=== PATIENT | female | born 1955 | race American Indian/Alaskan Native ===

== ENCOUNTER 2020-08-15 15:35 | Inpatient (IN) | payer MEDICARE ==
--- NOTE | 2020-08-15 16:38 | Event Note ---
ED Screening Note Date of service: 08/15/20 Time: 16:37 ED Screening Note: 64-year-old obese -M[place]ese female presents to the emergency room stating she just found out she was Covid positive and presents tachypneic tachycardic shortness of breath week no taste or smell. Came by [facility] system This initial assessment/diagnostic orders/clinical plan/treatment(s) is/are subject to change based on patients health status, clinical progression and re- assessment by fellow clinical providers in the ED. Further treatment and workup at subsequent clinical providers discretion. Patient/guardian urged not to elope from the ED as their condition may be serious if not clinically assessed and managed. Initial orders include:
--- NOTE | 2020-08-15 17:16 | XRay Report ---
CHEST 2 VIEWS INDICATION / CLINICAL INFORMATION: sob,cough and rales. Covid 19. COMPARISON: None available. FINDINGS: SUPPORT DEVICES: None. HEART / MEDIASTINUM: No significant abnormality. LUNGS / PLEURA: Low lung volumes with generalized bilateral pulmonary opacities. No significant pleur al effusion. No pneumothorax. ADDITIONAL FINDINGS: No significant additional findings. IMPRESSION: Bilateral pulmonary opacities are consistent with pneumonia in this patient with a history of Covid 1 9. Continued radiographic follow-up to resolution is recommended. Signer Name: Moshe Austin MD Signed: 08/15/2020 5:12 PM Workstation Name: [id number]
[2020-08-15] MEDS ORDERED: SODIUM CHLORIDE 0.9% 1000 ML 1,000 ML IV ONE ×2 (17:19)
[2020-08-15] MEDS ORDERED: IPRATROPIUM 0.02% NEBU 2.5 ML IH ONE (17:24)
[2020-08-15] MEDS ORDERED: LEVALBUTEROL 0.63 MG/3 ML NEBU IH ONE (17:24)
[2020-08-15] MEDS ORDERED: ACETAMINOPHEN 500 MG TAB PO ONE (17:26)
--- NOTE | 2020-08-15 17:26 | Emergency Department Report ---
HPI - General Chief Complaint: Dyspnea/Respdistress PUI?: Yes Time Seen by Provider: 08/15/20 16:57 - HPI HPI: Room 36 The patient is a 64-year-old female present with a chief complaint of "getting sicker." The patient states since July 21, 2020 she has suffered from a cough productive of yellow-white sputum, wheezing headache and scratchy throat. Patient admits to nausea but denies vomiting. The patient states her symptoms have been progressing since July 21. The patient states at some point she was placed on a Z-Bipin and steroids which she finished the course today. Patient is unable to remember who prescribed the medication for her at this time. The patient states she requested a Covid test from her insurance company and a test kit was mailed to her a few days ago. The patient states she completed the test and return to was notified today that her test was positive for COVID-19. The patient states her symptoms continue to progress and eventually EMS was called. The patient was found to be hypoxic today at 88% on room air per EMS and was subsequently brought into the ED ED Past Medical Hx - Past Medical History Previous Medical History?: Yes Hx Hypertension: Yes Hx CVA: Yes (CVA/TIA) Hx Diabetes: Yes Hx COPD: Yes (No home O2) Additional medical history: OBESITY,ELEVATED CHOLESTEROL - Surgical History Additional Surgical History: Hysterectomy - Social History Smoking Status: Never Smoker Substance Use Type: None (Denies illicit drug use) - Medications Home Medications: Home Medications Medication Instructions Recorded Confirmed Last Taken Type Colchicine [Colcrys] 0.6 mg PO DAILY 08/15/20 08/15/20 Unknown History Cyanocobalamin (Vitamin B-12) 1,000 mcg IJ QMONTH 08/15/20 08/15/20 Unknown History [Physicians Ez Use B-12] Ergocalciferol [Vitamin D2] 1 cap PO QWEEK 08/15/20 08/15/20 Unknown History Ezetimibe/Simvastatin 1 each PO DAILY 08/15/20 08/15/20 Unknown History [Ezetimibe-Simvastatin 10-20 mg] Famotidine [Pepcid] 40 mg PO DAILY 08/15/20 08/15/20 Unknown History Furosemide [Lasix] 40 mg PO BID 08/15/20 08/15/20 Unknown History HYDROcodone/APAP 5-325 [[place] 1 each PO Q6HR PRN 08/15/20 08/15/20 Unknown H istory 5/325] Linagliptin [Tradjenta] 5 mg PO QDAY 08/15/20 08/15/20 Unknown History Omeprazole 40 mg PO DAILY 08/15/20 08/15/20 Unknown History Potassium Chloride [K-Dur] 20 meq PO BID 08/15/20 08/15/20 Unknown History Valsartan [Diovan] 160 mg PO QDAY 08/15/20 08/15/20 Unknown History allopurinoL [Zyloprim] 200 mg PO DAILY 08/15/20 08/15/20 Unknown History carvediloL [Coreg] 3.125 mg PO BID 08/15/20 08/15/20 Unknown History ED Review of Systems ROS: Stated complaint: SOB/COVID POSITIVE Other details as noted in HPI Constitutional: fever Eyes: denies: eye pain ENT: throat pain Respiratory: cough, shortness of breath, wheezing Cardiovascular: denies: chest pain Endocrine: no symptoms reported Gastrointestinal: nausea. denies: vomiting Genitourinary: denies: dysuria Musculoskeletal: denies: back pain Neurological: headache Physical Exam - Physical Exam Vital Signs: Vital Signs 08/15/20 08/15/20 16:42 17:05 Temperature 100.9 F H Pulse Rate 144 H 134 H Respiratory 20 30 H Rate Blood Pressure 148/101 Blood Pressure 130/71 [Left] O2 Sat by Pulse 88 94 Oximetry Physical Exam: GENERAL: The patient is well-developed well-nourished female lying on stretcher appearing fatigued. [] HEENT: Normocephalic. Atraumatic. Extraocular motions are intact. Patient has moist mucous membranes. NECK: Supple. Trachea midline CHEST/LUNGS: Diminished diffusely. There is slightly increased work of breathing HEART/CARDIOVASCULAR: Regular. There is achycardia. There is no gallop rub or murmur. ABDOMEN: Abdomen is soft, nontender. Patient has normal bowel sounds. There is no abdominal distention. SKIN: There is no rash. There is no diaphoresis. NEURO: The patient is awake and oriented but appears fatigued. The patient is cooperative. The patient has no focal neurologic deficits. The patient has normal speech MUSCULOSKELETAL: There is no evidence of acute injury. ED Course Vital Signs 08/15/20 08/15/20 16:42 17:05 Temperature 100.9 F H Pulse Rate 144 H 134 H Respiratory 20 30 H Rate Blood Pressure 148/101 Blood Pressure 130/71 [Left] O2 Sat by Pulse 88 94 Oximetry ED Medical Decision Making - Lab Data Result diagrams: 08/15/20 17:01 08/15/20 17:01 - EKG Data -: EKG Interpreted by Me EKG shows normal: sinus rhythm Rate: tachycardia (132 beats per) - EKG Data When compared to previous EKG there are: previous EKG unavailable Interpretation: other (No ischemic changes seen) - Radiology Data Radiology results: report reviewed (Chest x-ray), image reviewed (Chest x-ray) interpreted by me: Chest [id number] bilateral opacities. No pneumothorax. No foreign body seen CHEST 2 VIEWS INDICATION / CLINICAL INFORMATION: sob,cough and rales. Covid 19. COMPARISON: None available. FINDINGS: SUPPORT DEVICES: None. HEART / MEDIASTINUM: No significant abnormality. LUNGS / PLEURA: Low lung volumes with generalized bilateral pulmonary opacities. No significant pleural effusion. No pneumothorax. ADDITIONAL FINDINGS: No significant additional findings. IMPRESSION: Bilateral pulmonary opacities are consistent with pneumonia in this patient with a history of Covid 19. Continued radiographic follow-up to resolution is recommended. Signer Name: Moshe Austin MD Signed: 08/15/2020 4:12 PM Workstation Name: [id number] - Differential Diagnosis COVID-19 Critical care attestation.: If time is entered above; I have spent that time in minutes in the direct care of this critically ill patient, excluding procedure time. ED Disposition Clinical Impression: COVID-19, Pneumonia, Hypoxia, Renal insufficiency Disposition: OP ADMIT IP TO THIS HOSP Is pt being admited?: Yes Does the pt Need Aspirin: Yes Condition: Fair Instructions: Bacterial Pneumonia (ED) Referrals: KENNETH GUERRA JR, MD [Primary Care Provider] - 3-5 Days Time of Disposition: 17:59 (Hospitalist paged (Dr. Rob))
[2020-08-15] MEDS ORDERED: cefTRIAXone/NS 1 GM/50 ML 1 GM/50 ML BAG IV ONE (17:27)
[2020-08-15 17:33] LABS: Basophils % (Auto) 0.2 % (0.0-1.8); Hematocrit 38.7 % (30.3-42.9); Hemoglobin 12.4 gm/dl (10.1-14.3); Lymphocytes # (Auto) 0.7 K/mm3 (1.2-5.4); Lymphocytes % (Auto) 7.4 % (13.4-35.0); Mean Corpuscular HGB Conc 32 % (30-34); Mean Corpuscular Volume 86 fl (79-97); Monocytes # (Auto) 0.7 K/mm3 (0.0-0.8); Monocytes % (Auto) 7.3 % (0.0-7.3); Platelet Count 204 K/mm3 (140-440); Red Blood Count 4.48 M/mm3 (3.65-5.03); Red Cell Distribution Width 15.8 % (13.2-15.2)
[2020-08-15 17:49] LABS: Albumin 3.4 g/dL (3.9-5); C-Reactive Protein 4.6 mg/dL (0.00-1.30); Calcium 8.8 mg/dL (8.4-10.2)
[2020-08-15] MEDS ORDERED: dexAMETHasone 20 MG/5 ML VIAL IV ONE (17:54)
[2020-08-15] MEDS ORDERED: fentaNYL 100 MCG/2 ML INJ IV ONE (18:20)
[2020-08-15] MEDS ORDERED: ONDANSETRON 4 MG/2 ML INJ IV ONE (18:20)
--- NOTE | 2020-08-15 21:48 | History and Physical Report ---
History of Present Illness Date of examination: 08/15/20 Date of admission: 08/15/20 18:00 Chief complaint: Cough and intermittent fever for 4 weeks History of present illness: 64-year-old female with history of hypertension, diabetes, COPD and old CVA comes in for cough productive of yellow sputum and wheezing and headache and scratchy throat. Going on for 4 weeks since July 21. Symptoms have been progressive since July 21. Patient has took a course of Z-Bipin and steroids with no relief. Patient states that she requested a [employer] test, [place] and pressors positive after 3 days of testing today. Intermittent fever present. Exposure to coronavirus not known. Shortness of breath on exertion. - Past Medical History Previous Medical History?: Yes --Hypertension: Yes --CVA: Yes (CVA/TIA) --Diabetes: Yes --COPD: Yes (No home O2) Additional medical history: OBESITY,ELEVATED CHOLESTEROL - Surgical History y Additional Surgical History: Hysterectomy Family history htn - Social History Smoking Status: Never Smoker Substance Use Type: None (Denies illicit drug use) - Medications Home Medications: Home Medications Medication Instructions Recorded Confirmed Last Taken Type Colchicine [Colcrys] 0.6 mg PO DAILY 08/15/20 08/15/20 Unknown History Cyanocobalamin (Vitamin B-12) 1,000 mcg IJ QMONTH 08/15/20 08/15/20 Unknown History [Physicians Ez Use B-12] Ergocalciferol [Vitamin D2] 1 cap PO QWEEK 08/15/20 08/15/20 Unknown History Ezetimibe/Simvastatin 1 each PO DAILY 08/15/20 08/15/20 Unknown History [Ezetimibe-Simvastatin 10-20 mg] Famotidine [Pepcid] 40 mg PO DAILY 08/15/20 08/15/20 Unknown History Furosemide [Lasix] 40 mg PO BID 08/15/20 08/15/20 Unknown History HYDROcodone/APAP 5-325 [[place] 1 each PO Q6HR PRN 08/15/20 08/15/20 Unknown History 5/325] Linagliptin [Tradjenta] 5 mg PO QDAY 08/15/20 08/15/20 Unknown History Omeprazole 40 mg PO DAILY 08/15/20 08/15/20 Unknown History Potassium Chloride [K-Dur] 20 meq PO BID 08/15/20 08/15/20 Unknown History Valsartan [Diovan] 160 mg PO QDAY 08/15/20 08/15/20 Unknown History allopurinoL [Zyloprim] 200 mg PO DAILY 08/15/20 08/15/20 Unknown History carvediloL [Coreg] 3.125 mg PO BID 08/15/20 08/15/20 Unknown History Review of Systems ROS: Stated complaint: SOB/COVID POSITIVE Other details as noted in HPI Constitutional: fever Eyes: denies: eye pain ENT: throat pain Respiratory: cough, shortness of breath, wheezing Cardiovascular: denies: chest pain Endocrine: no symptoms reported Gastrointestinal: nausea. denies: vomiting Genitourinary: denies: dysuria Musculoskeletal: denies: back pain Neurological: headache Medications and Allergies Allergies Allergy/AdvReac Type Severity Reaction Status Date / Time gabapentin [From Neurontin] Allergy Unknown Verified 08/15/20 17:25 rosuvastatin calcium Allergy Rash Verified 08/15/20 17:25 [From Crestor] fluticasone propionate AdvReac Headache Verified 08/15/20 17:25 [From Advair Diskus] salmeterol xinafoate AdvReac Headache Verified 08/15/20 17:25 [From Advair Diskus] IV DYE AdvReac Itching Uncoded 08/15/20 17:25 Home Medications Medication Instructions Recorded Confirmed Last Taken Type Colchicine [Colcrys] 0.6 mg PO DAILY 08/15/20 08/15/20 Unknown History Cyanocobalamin (Vitamin B-12) 1,000 mcg IJ QMONTH 08/15/20 08/15/20 Unknown History [Physicians Ez Use B-12] Ergocalciferol [Vitamin D2] 1 cap PO QWEEK 08/15/20 08/15/20 Unknown History Ezetimibe/Simvastatin 1 each PO DAILY 08/15/20 08/15/20 Unknown History [Ezetimibe-Simvastatin 10-20 mg] Famotidine [Pepcid] 40 mg PO DAILY 08/15/20 08/15/20 Unknown History Furosemide [Lasix] 40 mg PO BID 08/15/20 08/15/20 Unknown History HYDROcodone/APAP 5-325 [[place] 1 each PO Q6HR PRN 08/15/20 08/15/20 Unknown History 5/325] Linagliptin [Tradjenta] 5 mg PO QDAY 08/15/20 08/15/20 Unknown History Omeprazole 40 mg PO DAILY 08/15/20 08/15/20 Unknown History Potassium Chloride [K-Dur] 20 meq PO BID 08/15/20 08/15/20 Unknown History Valsartan [Diovan] 160 mg PO QDAY 08/15/20 08/15/20 Unknown History allopurinoL [Zyloprim] 200 mg PO DAILY 08/15/20 08/15/20 Unknown History carvediloL [Coreg] 3.125 mg PO BID 08/15/20 08/15/20 Unknown History Exam - Constitutional Vitals: Temp Pulse Resp BP Pulse Ox 100.9 F H 123 H 18 109/33 94 08/15/20 16:42 08/15/20 18:41 08/15/20 18:41 08/15/20 18:41 08/15/20 18:41 General appearance: Present: mild distress, well-nourished - EENT Eyes: Present: PERRL ENT: hearing intact, clear oral mucosa - Neck Neck: Present: supple, normal ROM - Respiratory Respiratory effort: normal Respiratory: bilateral: CTA - Cardiovascular Heart rate: 78 Rhythm: regular Heart Sounds: Present: S1 & S2. Absent: rub, click - Extremities Extremities: no ischemia, pulses intact, pulses symmetrical, No edema Peripheral Pulses: within normal limits - Abdominal General gastrointestinal: Present: soft, non-tender, non-distended, normal bowel sounds Female genitourinary: Present: normal - Integumentary Integumentary: Present: clear, warm, dry - Musculoskeletal Musculoskeletal: gait normal, strength equal bilaterally - Psychiatric Psychiatric: appropriate mood/affect, intact judgment & insight - Neurologic Neurologic: CNII-XII intact, moves all extremities - Allied Health Allied health notes reviewed: nursing, case management Results - Labs CBC & Chem 7: 08/16/20 04:32 08/16/20 04:32 Labs: Laboratory Last Values WBC 9.3 K/mm3 (4.5-11.0) 08/15/20 17:01 RBC 4.48 M/mm3 (3.65-5.03) 08/15/20 17:01 Hgb 12.4 gm/dl (10.1-14.3) 08/15/20 17:01 Hct 38.7 % (30.3-42.9) 08/15/20 17:01 MCV 86 fl (79-97) 08/15/20 17:01 MCH 28 pg (28-32) 08/15/20 17:01 MCHC 32 % (30-34) 08/15/20 17:01 RDW 15.8 % (13.2-15.2) H 08/15/20 17:01 Plt Count 204 K/mm3 (140-440) 08/15/20 17:01 Lymph % (Auto) 7.4 % (13.4-35.0) L 08/15/20 17:01 [place]hea % (Auto) 7.3 % (0.0-7.3) 08/15/20 17: Eos % (Auto) 0.0 % (0.0-4.3) 08/15/20 17: Baso % (Auto) 0.2 % (0.0-1.8) 08/15/20 17:01 Lymph # (Auto) 0.7 K/mm3 (1.2-5.4) L 08/15/20 17:01 Rhea # (Auto) 0.7 K/mm3 (0.0-0.8) 08/15/20 17:01 Eos # (Auto) 0.0 K/mm3 (0.0-0.4) 08/15/20 17:01 Baso # (Auto) 0.0 K/mm3 (0.0-0.1) 08/15/20 17:01 Seg Neutrophils % 85.1 % (40.0-70.0) H 08/15/20 17: Seg Neutrophils # 7.9 K/mm3 (1.8-7.7) H 08/15/20 17:01 D-Dimer 1750.12 ng/mlDDU (0-234) H 08/15/20 17:01 VBG pH 7.389 (7.320-7.420) 08/15/20 17:12 Sodium 137 mmol/L (137-145) 08/15/20 17:01 Potassium 5.1 mmol/L (3.6-5.0) H 08/15/20 17:01 Chloride 97.1 mmol/L (98-107) L 08/15/20 17:01 Carbon Dioxide 26 mmol/L (22-30) 08/15/20 17:01 Anion Gap 19 mmol/L 08/15/20 17:01 BUN 67 mg/dL (7-17) H 08/15/20 17:01 Creatinine 4.8 mg/dL (0.6-1.2) H 08/15/20 17:01 Estimated GFR 11 ml/min 08/15/20 17:01 BUN/Creatinine Ratio 14 % 08/15/20 17:01 Glucose 101 mg/dL (65-100) H 08/15/20 17:01 Glucose 101 mg/dL (65-100) H 08/15/20 17:01 Lactic Acid 1.30 mmol/L (0.7-2.0) 08/15/20 17:01 Calcium 8.8 mg/dL (8.4-10.2) 08/15/20 17: Ferritin 667.2 ng/mL (10.0-200.0) H 08/15/20 17:01 Total Bilirubin 0.40 mg/dL (0.1-1.2) 08/15/20 17:01 AST 53 units/L (5-40) H 08/15/20 17:01 ALT 26 units/L (7-56) 08/15/20 17:01 Alkaline Phosphatase 76 units/L (35-129) 08/15/20 17:01 Lactate Dehydrogenase 606 units/L (91-180) H 08/15/20 17:01 C-Reactive Protein 4.60 mg/dL (0.00-1.30) H 08/15/20 17:01 Total Protein 7.6 g/dL (6.3-8.2) 08/15/20 17:01 Albumin 3.4 g/dL (3.9-5) L 08/15/20 17:01 Albumin/Globulin Ratio 0.8 % 08/15/20 17:01 Microbiology: Microbiology 08/15/20 17:01 Peripheral/Venous Blood Culture - Preliminary Culture in Progress 08/15/20 17:12 Peripheral/Venous Blood Culture - Preliminary Culture in Progress - Imaging and Cardiology EKG: report reviewed Imaging and Cardiology: Chest x-ray Bilateral pulmonary opacities Assessment and Plan Advance Directives: Yes (Full code) VTE prophylaxis?: Chemical Plan of care discussed with patient/family: Yes - Patient Problems (1) Acute respiratory failure with hypoxia Current Visit: Yes Status: Acute Plan to address problem: Coronavirus PCR to be ruled out Patient has bilateral pulmonary opacities Question of volume overload present because of the high creatinine and possible CKD/end-stage renal disease (2) Person under investigation for severe acute respiratory syndrome coronavirus 2 (SARS-CoV-2) infection Current Visit: Yes Status: Acute Plan to address problem: Coronavirus PCR requested (3) Bilateral pneumonia Current Visit: Yes Status: Acute Plan to address problem: In the meantime treated bilateral community-acquired pneumonia Patient initiated on IV Zithromax and IV Rocephin (4) DVT prophylaxis Current Visit: Yes Status: Acute (5) Hypertension Current Visit: Yes Status: Chronic Qualifiers: Hypertension type: essential hypertension Qualified Code(s): I10 - Essential (primary) hypertension Plan to address problem: Continue antihypertensives and adjust medications (6) T2DM (type 2 diabetes mellitus) Current Visit: Yes Status: Chronic Qualifiers: Diabetes mellitus oil heaterman insulin use: unspecified oil heaterman insulin use status Plan to address problem: Coverage for now Check hemoglobin A1c (7) COPD (chronic obstructive pulmonary disease) Current Visit: Yes Status: Chronic Plan to address problem: DuoNebs as needed (8) CKD (chronic kidney disease) Current Visit: Yes Status: Acute Qualifiers: Chronic kidney disease stage: stage 5, not on chronic dialysis Qualified Code(s): N18.5 - Chronic kidney disease, stage 5 Plan to address problem: Nephrology consult requested (9) Hyperkalemia Current Visit: Yes Status: Acute Plan to address problem: Hyperkalemia treated. (10) DVT prophylaxis Current Visit: Yes Status: Acute Plan to address problem: On heparin and GI prophylaxis
[2020-08-15] MEDS ORDERED: ONDANSETRON 4 MG/2 ML INJ IV PRN (22:16)
[2020-08-15] MEDS ORDERED: METOCLOPRAMIDE 10 MG/2 ML INJ IV PRN ×2 (22:16→22:37)
[2020-08-15] MEDS: carvediloL 3.125 MG TAB PO SCH (23:40)
[2020-08-15] MEDS: AZITHROMYCIN/NS 500 MG/250 ML 500 MG/250 ML BAG IV SCH (23:41)
[2020-08-16] MEDS: ASCORBIC ACID 500 MG TAB PO SCH ×3 (02:23→22:07)
[2020-08-16] MEDS: FUROSEMIDE 40 MG TAB PO SCH ×3 (02:24→22:13)
[2020-08-16] MEDS: ZINC SULFATE 220 MG CAP PO SCH ×3 (02:24→22:11)
[2020-08-16 05:10] LABS: Basophils % (Auto) 0.2 % (0.0-1.8); Hematocrit 34.8 % (30.3-42.9); Hemoglobin 10.8 gm/dl (10.1-14.3); Lymphocytes # (Auto) 0.8 K/mm3 (1.2-5.4); Lymphocytes % (Auto) 12.6 % (13.4-35.0); Mean Corpuscular HGB Conc 31 % (30-34); Mean Corpuscular Volume 88 fl (79-97); Monocytes # (Auto) 0.2 K/mm3 (0.0-0.8); Monocytes % (Auto) 3.5 % (0.0-7.3); Platelet Count 182 K/mm3 (140-440); Red Blood Count 3.97 M/mm3 (3.65-5.03); Red Cell Distribution Width 15.9 % (13.2-15.2)
[2020-08-16 05:32] LABS: Albumin 3.1 g/dL (3.9-5); Calcium 7.8 mg/dL (8.4-10.2)
[2020-08-16] MEDS ORDERED: SODIUM POLYSTYRENE 15 GM/60 ML ORAL LIQD PO ONE (06:09)
[2020-08-16] MEDS ORDERED: CALCIUM GLUCONATE 2,000 MG in SODIUM CHLORIDE 0.9% 100 ML IV ONE ×2 (06:48→09:45)
--- NOTE | 2020-08-16 09:26 | Consultation ---
History of Present Illness Consult date: 08/16/20 Requesting physician: BONY DUPREE Reason for consult: COPD, other (COVID) History of present illness: 64 y/o female with acute respiratory failure thought secondary to COVID. Follows with Dr. Aparicio. Lying flat in bed on nasal cannula and states that she feels pretty good. no other complaints. Medications and Allergies Allergies Allergy/AdvReac Type Severity Reaction Status Date / Time gabapentin [From Neurontin] Allergy Unknown Verified 08/15/20 17:25 rosuvastatin calcium Allergy Rash Verified 08/15/20 17:25 [From Crestor] fluticasone propionate AdvReac Headache Verified 08/15/20 17:25 [From Advair Diskus] salmeterol xinafoate AdvReac Headache Verified 08/15/20 17:25 [From Advair Diskus] IV DYE AdvReac Itching Uncoded 08/15/20 17:25 Home Medications Medication Instructions Recorded Confirmed Last Taken Type Colchicine [Colcrys] 0.6 mg PO DAILY 08/15/20 08/15/20 Unknown History Cyanocobalamin (Vitamin B-12) 1,000 mcg IJ QMONTH 08/15/20 08/15/20 Unknown History [Physicians Ez Use B-12] Ergocalciferol [Vitamin D2] 1 cap PO QWEEK 08/15/20 08/15/20 Unknown History Ezetimibe/Simvastatin 1 each PO DAILY 08/15/20 08/15/20 Unknown History [Ezetimibe-Simvastatin 10-20 mg] Famotidine [Pepcid] 40 mg PO DAILY 08/15/20 08/15/20 Unknown History Furosemide [Lasix] 40 mg PO BID 08/15/20 08/15/20 Unknown History HYDROcodone/APAP 5-325 [[place] 1 each PO Q6HR PRN 08/15/20 08/15/20 Unknown History 5/325] Linagliptin [Tradjenta] 5 mg PO QDAY 08/15/20 08/15/20 Unknown History Omeprazole 40 mg PO DAILY 08/15/20 08/15/20 Unknown History Potassium Chloride [K-Dur] 20 meq PO BID 08/15/20 08/15/20 Unknown History Valsartan [Diovan] 160 mg PO QDAY 08/15/20 08/15/20 Unknown History allopurinoL [Zyloprim] 200 mg PO DAILY 08/15/20 08/15/20 Unknown History carvediloL [Coreg] 3.125 mg PO BID 08/15/20 08/15/20 Unknown History Active Meds: Active Medications Acetaminophen (Acetaminophen 325 Mg Tab) 650 mg PO Q4H PRN PRN Reason: Pain MILD(1-3)/Fever >100.5/TELLO Hydrocodone Bitart/Acetaminophen (Hydrocodone/Acetaminophen 5-325 Mg Tab) 1 each PO Q6HR PRN PRN Reason: Pain, Moderate (4-6) Allopurinol (Allopurinol 100 Mg Tab) 200 mg PO DAILY [facility] Ascorbic Acid (Ascorbic Acid 500 Mg Tab) 1,000 mg PO BID [facility] Last Admin: 08/16/20 02:23 Dose: 1,000 mg Documented by: Carvedilol (Carvedilol 3.125 Mg Tab) 3.125 mg PO BID [facility] Last Admin: 08/15/20 23:40 Dose: Not Given Documented by: Colchicine (Colchicine 0.6 Mg Tab) 0.6 mg PO QOD [facility] Dexamethasone (Dexamethasone 4 Mg/Ml Vial) 6 mg IV DAILY [facility] Stop: 08/24/20 10:01 Ezetimibe (Ezetimibe 10 Mg Tab) 10 mg PO DAILY [facility] Furosemide (Furosemide 40 Mg Tab) 40 mg PO BID [facility] Last Admin: 08/16/20 02:24 Dose: 40 mg Documented by: Hydromorphone HCl (Hydromorphone 1 Mg/1 Ml Inj) 0.5 mg IV Q3H PRN PRN Reason: Pain , Severe (7-10) Azithromycin (Zithromax/Ns) 500 mg in 250 mls @ 250 mls/hr IV Q24H [facility] Last Admin: 08/15/20 23:41 Dose: 250 mls/hr Documented by: Ceftriaxone Sodium (Rocephin/Ns 2 Gm/100 Ml) 2 gm in 100 mls @ 200 mls/hr IV Q24HR [facility]; Protocol Calcium Gluconate 2,000 mg/ (Sodium Chloride) 120 mls @ 660 mls/hr IV ONCE ONE Stop: 08/16/20 09:26 Linagliptin (Linagliptin 5 Mg Tab) 5 mg PO QDAY [facility] Metoclopramide HCl (Metoclopramide 10 Mg/2 Ml Inj) 5 mg IV Q6H PRN PRN Reason: Nausea And Vomiting Ondansetron HCl (Ondansetron 4 Mg/2 Ml Inj) 4 mg IV Q8H PRN PRN Reason: Nausea And Vomiting Oxycodone/Acetaminophen (Oxycodone /Acetaminophen 5-325mg Tab) 1 tab PO Q6H PRN PRN Reason: Pain, Moderate (4-6) Pantoprazole Sodium (Pantoprazole 40 Mg Tab) 40 mg PO DAILY [facility] Pravastatin Sodium (Pravastatin 40 Mg Tab) 40 mg PO DAILY [facility] Sodium Bicarbonate (Sodium Bicarb 8.4% 50 Meq/50 Ml Syringe) 50 meq IV ONCE ONE Stop: 08/16/20 09:17 Sodium Chloride (Sodium Chloride 0.9% 10 Ml Flush Syringe) 10 ml IV BID [facility] Last Admin: 08/16/20 02:24 Dose: 10 ml Documented by: Sodium Chloride (Sodium Chloride 0.9% 10 Ml Flush Syringe) 10 ml IV PRN PRN PRN Reason: LINE FLUSH Sodium Polystyrene Sulfonate (Sodium Polystyrene 15 Gm/60 Ml Oral Liqd) 60 gm PO ONCE ONE Stop: 08/16/20 09:16 Valsartan (Valsartan 160mg Tab) 160 mg PO QDAY [facility] Zinc Sulfate (Zinc Sulfate 220 Mg Cap) 220 mg PO BID [facility] Last Admin: 08/16/20 02:24 Dose: 220 mg Documented by: Review of Systems All systems: negative Physical Examination Vital signs: Vital Signs Temp Pulse Resp BP Pulse Ox 100.9 F H 144 H 20 148/101 88 08/15/20 16:42 08/15/20 16:42 08/15/20 16:42 08/15/20 16:42 08/15/20 16:42 General appearance: no acute distress, alert, other (obese) Eyes: non-icteric ENT: oropharynx moist Neck: supple Effort: normal Ascultation: Bilateral: diminished breath sounds Results - Laboratory Findings CBC and BMP: 08/16/20 04:32 08/16/20 04:32 PT/INR, D-dimer D-Dimer 1750.12 ng/mlDDU (0-234) H 08/15/20 17:01 Abnormal lab findings: Abnormal Labs 08/15/20 08/15/20 08/15/20 17:01 17:01 17:01 MCH RDW 15.8 H Lymph % (Auto) 7.4 L Lymph # (Auto) 0.7 L Seg Neutrophils % 85.1 H Seg Neutrophils # 7.9 H D-Dimer 1750.12 H Sodium Potassium 5.1 H Chloride 97.1 L BUN 67 H Creatinine 4.8 H Glucose 101 H Hemoglobin A1c Calcium Ferritin AST 53 H Lactate Dehydrogenase C-Reactive Protein Total Protein Albumin 3.4 L 08/15/20 08/15/20 08/16/20 17:01 17:01 04:32 MCH 27 L RDW 15.9 H Lymph % (Auto) 12.6 L Lymph # (Auto) 0.8 L Seg Neutrophils % 83.7 H Seg Neutrophils # D-Dimer Sodium Potassium Chloride BUN Creatinine Glucose 101 H Hemoglobin A1c Calcium Ferritin 667.2 H AST Lactate Dehydrogenase 606 H C-Reactive Protein 4.60 H Total Protein Albumin 08/16/20 08/16/20 04:32 04:32 MCH RDW Lymph % (Auto) Lymph # (Auto) Seg Neutrophils % Seg Neutrophils # D-Dimer Sodium 136 L Potassium 6.7 H* D Chloride BUN 78 H Creatinine 6.2 H Glucose 223 H Hemoglobin A1c 7.6 H Calcium 7.8 L Ferritin AST 47 H Lactate Dehydrogenase C-Reactive Protein Total Protein 5.8 L D Albumin 3.1 L - Diagnostic Findings Chest x-ray: report reviewed (unable to see images secondary to system error.) Assessment and Plan 64 y/o female with acute respiratory failure thought secondary to COVID 1. Follow up covid testing 2. Ok with current steroids 3. If patient brought in home inhalers, please allow pharmacy to verify and use them, no neb treatments 4. Prone during the day and and sleep prone at night as tolerated. Guarded prognosis.
[2020-08-16] MEDS ORDERED: SODIUM POLYSTYRENE 15 GM/60 ML ORAL LIQD PO NR (09:30)
[2020-08-16] MEDS ORDERED: POTASSIUM CHLORIDE ER 20 MEQ TAB PO SCH (10:00)
[2020-08-16] MEDS ORDERED: COLCHICINE 0.6 MG TAB PO SCH (10:00)
[2020-08-16] MEDS ORDERED: FAMOTIDINE 20 MG/2 ML INJ IV SCH (10:00)
[2020-08-16] MEDS ORDERED: [UNRECOGNIZED DRUG - OTHER] PO SCH (10:00)
[2020-08-16] MEDS ORDERED: NON-FORMULARY EACH (Famotidine [Pepcid] 40 MG Tablet) PO SCH (10:00)
[2020-08-16] MEDS ORDERED: NON-FORMULARY EACH (Omeprazole [Omeprazole] 40 MG Capsule.Dr) PO SCH (10:00)
[2020-08-16] MEDS ORDERED: SIMVASTATIN PO SCH (10:00)
[2020-08-16] MEDS ORDERED: EZETIMIBE PO SCH (10:00)
[2020-08-16] MEDS ORDERED: dexAMETHasone 4 MG/ML VIAL IV SCH (10:00)
[2020-08-16] MEDS ORDERED: INSULIN REGULAR, HUMAN 100 UNITS/1 ML IV ONE (11:09)
[2020-08-16] MEDS ORDERED: DEXTROSE 50% IN WATER (25GM) 50 ML SYRINGE IV ONE (11:10)
[2020-08-16] MEDS: dexAMETHasone 4 MG/ML VIAL IV SCH (11:29)
[2020-08-16] MEDS: SODIUM BICARB 8.4% 50 MEQ/50 ML SYRINGE IV NR ×3 (11:29→11:33)
[2020-08-16] MEDS: allopurinoL 100 MG TAB PO SCH (11:31)
[2020-08-16] MEDS: cefTRIAXone/NS 2 GM/100 ML 2 GM/100 ML BAG IV SCH (11:31)
[2020-08-16] MEDS: LINAGLIPTIN 5 MG TAB PO SCH (11:32)
[2020-08-16] MEDS: carvediloL 3.125 MG TAB PO SCH ×2 (11:32→22:08)
[2020-08-16] MEDS: PANTOPRAZOLE 40 MG TAB PO SCH (11:32)
[2020-08-16] MEDS ORDERED: SODIUM CHLORIDE 0.9% 100 ML IV PRN (11:46)
--- NOTE | 2020-08-16 12:05 | Consultation ---
History of Present Illness - History of Present Illness Thank you for the consultation Patient was evaluated today from renal standpoint My assessment and plan are as follows Renal failure, severe, worsening renal function in a patient who has been admitted here has known history of chronic kidney disease, currently being followed by Dr. Sanders who is her primary care physician patient also remotely remembers seeing a beautician apprentice several years ago but never went back for follow-up Etiology of renal failure appears to be complex and multifactorial at this time, will order workup for renal failure as well as initiate renal placement therapy I have discussed with the patient as well as patient's nurse over the phone at length process of dialysis has been explained to the patient she is in agreement with initiation of renal replacement therapy given the severity of hyperkalemia and renal failure at least 1-2 treatment for now to see how she responds while we are trying to figure out what her baseline creatinine I have ordered for dialysis as well as dialysis catheter placement consultation has been requested with Dr. Simmons #I have already contacted her primary care physician to know her baseline creatinine, patient is a very poor historian, #Hyperkalemia could be iatrogenic patient was taking potassium supplementation along with Diovan, postdialysis will need to follow continue holding potassium supplementation as well as Diovan for now #Being ruled out for coronavirus 19 infection patient under investigation #History of gout hyperuricemia, hypertension, diabetes: Multiple other risk factors also for underlying chronic kidney disease current BMI is around 56: #Overall renal prognosis appears to be guarded to poor at this time We will continue to monitor for any meaningful recovery of renal function Patient has been adequately counseled educated regarding all the renal related issues and all questions were addressed in presence of the nurse on the speaker phone Will await for her basic renal function panel from her primary care physician Dr. Rivers Author: Robbie Del Cid M.D. [facility] [address] [place] [address] [address] [place] [address] Tel; [phone] Source of information: From the current chart patient under investigation for Covid 19 History of present illness Patient is a 4-year-old female who possibly has known history of chronic kidney disease and was seen and followed by a beautician apprentice approximately 3 years ago, she thinks it could be my partner Dr. Ovalles. She is currently being followed by Dr. Samy Rivers in the outpatient setting and does not recall having ever been told to have any issues with kidney disease, patient however appears to be very poor historian she denies having any history of HIV lupus hepatitis BC or any form of paraproteinemia she was not taking any form of nonsteroidal drug. She has been found to be in severe renal failure creatinine close to 6 potassium 6.7 with shortness of breath concern has been raised about some fluid overload by primary team, she denies having any difficulty voiding Events of this hospitalization were noted Past medical history: Chronic kidney disease? Morbid obesity Hypertension Hyperlipidemia Gout CVA COPD Oxygen dependent History of hysterectomy Current allergies: Reviewed from the current chart Social history: Reviewed from the current chart Family history: Reviewed from the current chart Review of system: Positive for shortness of breath cough fever headache sore throat which has been going on for nearly 4 weeks she was treated with Z-Bipin and steroid without much help and still continued to have intermittent fever All other review of systems negative Physical examination Vitals: Reviewed Findings were reviewed from this hospitalization Due to patient being in the status of PUI and ongoing pandemic with Covid 19 to reduce the risk of transmission patient was directly not physically examined by ut Labs and x-rays: Reviewed from this admission Medications and Allergies Allergies Allergy/AdvReac Type Severity Reaction Status Date / Time gabapentin [From Neurontin] Allergy Unknown Verified 08/15/20 17:25 rosuvastatin calcium Allergy Rash Verified 08/15/20 17:25 [From Crestor] fluticasone propionate AdvReac Headache Verified 08/15/20 17:25 [From Advair Diskus] salmeterol xinafoate AdvReac Headache Verified 08/15/20 17:25 [From Advair Diskus] IV DYE AdvReac Itching Uncoded 08/15/20 17:25 Home Medications Medication Instructions Recorded Confirmed Last Taken Type Colchicine [Colcrys] 0.6 mg PO DAILY 08/15/20 08/15/20 Unknown History Cyanocobalamin (Vitamin B-12) 1,000 mcg IJ QMONTH 08/15/20 08/15/20 Unknown History [Physicians Ez Use B-12] Ergocalciferol [Vitamin D2] 1 cap PO QWEEK 08/15/20 08/15/20 Unknown History Ezetimibe/Simvastatin 1 each PO DAILY 08/15/20 08/15/20 Unknown History [Ezetimibe-Simvastatin 10-20 mg] Famotidine [Pepcid] 40 mg PO DAILY 08/15/20 08/15/20 Unknown History Furosemide [Lasix] 40 mg PO BID 08/15/20 08/15/20 Unknown History HYDROcodone/APAP 5-325 [Sutton 1 each PO Q6HR PRN 08/15/20 08/15/20 Unknown History 5/325] Linagliptin [Tradjenta] 5 mg PO QDAY 08/15/20 08/15/20 Unknown History Omeprazole 40 mg PO DAILY 08/15/20 08/15/20 Unknown History Potassium Chloride [K-Dur] 20 meq PO BID 08/15/20 08/15/20 Unknown History Valsartan [Diovan] 160 mg PO QDAY 08/15/20 08/15/20 Unknown History allopurinoL [Zyloprim] 200 mg PO DAILY 08/15/20 08/15/20 Unknown History carvediloL [Coreg] 3.125 mg PO BID 08/15/20 08/15/20 Unknown History Active Meds: Active Medications Acetaminophen (Acetaminophen 325 Mg Tab) 650 mg PO Q4H PRN PRN Reason: Pain MILD(1-3)/Fever >100.5/TELLO Hydrocodone Bitart/Acetaminophen (Hydrocodone/Acetaminophen 5-325 Mg Tab) 1 each PO Q6HR PRN PRN Reason: Pain, Moderate (4-6) Allopurinol (Allopurinol 100 Mg Tab) 200 mg PO DAILY [facility] Last Admin: 08/16/20 11:31 Dose: 200 mg Documented by: Ascorbic Acid (Ascorbic Acid 500 Mg Tab) 1,000 mg PO BID [facility] Last Admin: 08/16/20 02:23 Dose: 1,000 mg Documented by: Carvedilol (Carvedilol 3.125 Mg Tab) 3.125 mg PO BID [facility] Last Admin: 08/16/20 11:32 Dose: 3.125 mg Documented by: Colchicine (Colchicine 0.6 Mg Tab) 0.6 mg PO QOD [facility] Dexamethasone (Dexamethasone 4 Mg/Ml Vial) 6 mg IV DAILY [facility] Stop: 08/24/20 10:01 Last Admin: 08/16/20 11:29 Dose: 6 mg Documented by: Ezetimibe (Ezetimibe 10 Mg Tab) 10 mg PO DAILY [facility] Furosemide (Furosemide 40 Mg Tab) 40 mg PO BID [facility] Last Admin: 08/16/20 11:31 Dose: 40 mg Documented by: Hydromorphone HCl (Hydromorphone 1 Mg/1 Ml Inj) 0.5 mg IV Q3H PRN PRN Reason: Pain , Severe (7-10) Azithromycin (Zithromax/Ns) 500 mg in 250 mls @ 250 mls/hr IV Q24H [facility] Last Admin: 08/15/20 23:41 Dose: 250 mls/hr Documented by: Ceftriaxone Sodium (Rocephin/Ns 2 Gm/100 Ml) 2 gm in 100 mls @ 200 mls/hr IV Q24HR [facility]; Protocol Last Admin: 08/16/20 11:31 Dose: 200 mls/hr Documented by: Sodium Chloride (Nacl 0.9%) 100 mls @ 999 mls/hr IV SARAI PRN PRN Reason: Hypotension Linagliptin (Linagliptin 5 Mg Tab) 5 mg PO QDAY [facility] Last Admin: 08/16/20 11:32 Dose: 5 mg Documented by: Metoclopramide HCl (Metoclopramide 10 Mg/2 Ml Inj) 5 mg IV Q6H PRN PRN Reason: Nausea And Vomiting Ondansetron HCl (Ondansetron 4 Mg/2 Ml Inj) 4 mg IV Q8H PRN PRN Reason: Nausea And Vomiting Oxycodone/Acetaminophen (Oxycodone /Acetaminophen 5-325mg Tab) 1 tab PO Q6H PRN PRN Reason: Pain, Moderate (4-6) Pantoprazole Sodium (Pantoprazole 40 Mg Tab) 40 mg PO DAILY [facility] Last Admin: 08/16/20 11:32 Dose: 40 mg Documented by: Pravastatin Sodium (Pravastatin 40 Mg Tab) 40 mg PO DAILY [facility] Sodium Bicarbonate (Sodium Bicarb 8.4% 50 Meq/50 Ml Syringe) 50 meq IV ONCE@0930 NR Stop: 08/16/20 12:00 Last Admin: 08/16/20 11:33 Dose: 50 meq Documented by: Sodium Chloride (Sodium Chloride 0.9% 10 Ml Flush Syringe) 10 ml IV BID [facility] Last Admin: 08/16/20 02:24 Dose: 10 ml Documented by: Sodium Chloride (Sodium Chloride 0.9% 10 Ml Flush Syringe) 10 ml IV PRN PRN PRN Reason: LINE FLUSH Sodium Polystyrene Sulfonate (Sodium Polystyrene 15 Gm/60 Ml Oral Liqd) 60 gm PO ONCE@0930 NR Stop: 08/16/20 12:00 Last Admin: 08/16/20 11:33 Dose: 60 gm Documented by: Valsartan (Valsartan 160mg Tab) 160 mg PO QDAY [facility] Zinc Sulfate (Zinc Sulfate 220 Mg Cap) 220 mg PO BID [facility] Last Admin: 08/16/20 02:24 Dose: 220 mg Documented by: Exam - Vital Signs Vital signs: Vital Signs Temp Pulse Resp BP Pulse Ox 100.9 F H 144 H 20 148/101 88 08/15/20 16:42 08/15/20 16:42 08/15/20 16:42 08/15/20 16:42 08/15/20 16:42 Results - Lab Results 08/16/20 04:32 08/16/20 17:01 Most recent lab results Calcium 7.8 mg/dL (8.4-10.2) L 08/16/20 04:32
[2020-08-16] MEDS: VALSARTAN 160MG TAB PO SCH (12:20)
[2020-08-16] MEDS: PRAVASTATIN 40 MG TAB PO SCH (12:20)
[2020-08-16] MEDS: EZETIMIBE 10 MG TAB PO SCH (12:21)
--- NOTE | 2020-08-16 13:58 | Consultation ---
History of Present Illness - Reason for Consult Consult date: 08/16/20 COVID_19 Requesting physician: BONY DUPREE - History of Present Illness The patient is a 64-year-old female with hypertension, diabetes, COPD, prior CVA, CKD was admitted to the hospital with cough and shortness of breath along with wheezing and headache going on for almost a month. She recently got tested for COVID-19 and was told it is positive. Upon evaluation in the ER, had a low- grade fever, also noted to be hypoxic requiring supplemental oxygen. She has been started on empiric antibiotics and steroids. Also noted to have ANGELIQUE on top of CKD Labs showed normal WBC, D-dimer 1750, ferritin 667, LDH 606, CRP 4.6. Review of Systems: reviewed in the chart, unable to obtain, minimize risk of transmission Medications and Allergies Allergies Allergy/AdvReac Type Severity Reaction Status Date / Time gabapentin [From Neurontin] Allergy Unknown Verified 08/15/20 17:25 rosuvastatin calcium Allergy Rash Verified 08/15/20 17:25 [From Crestor] fluticasone propionate AdvReac Headache Verified 08/15/20 17:25 [From Advair Diskus] salmeterol xinafoate AdvReac Headache Verified 08/15/20 17:25 [From Advair Diskus] IV DYE AdvReac Itching Uncoded 08/15/20 17:25 Home Medications Medication Instructions Recorded Confirmed Last Taken Type Colchicine [Colcrys] 0.6 mg PO DAILY 08/15/20 08/15/20 Unknown History Cyanocobalamin (Vitamin B-12) 1,000 mcg IJ QMONTH 08/15/20 08/15/20 Unknown History [Physicians Ez Use B-12] Ergocalciferol [Vitamin D2] 1 cap PO QWEEK 08/15/20 08/15/20 Unknown History Ezetimibe/Simvastatin 1 each PO DAILY 08/15/20 08/15/20 Unknown History [Ezetimibe-Simvastatin 10-20 mg] Famotidine [Pepcid] 40 mg PO DAILY 08/15/20 08/15/20 Unknown History Furosemide [Lasix] 40 mg PO BID 08/15/20 08/15/20 Unknown History HYDROcodone/APAP 5-325 [Hydro 1 each PO Q6HR PRN 08/15/20 08/15/20 Unknown History 5/325] Linagliptin [Tradjenta] 5 mg PO QDAY 08/15/20 08/15/20 Unknown History Omeprazole 40 mg PO DAILY 08/15/20 08/15/20 Unknown History Potassium Chloride [K-Dur] 20 meq PO BID 08/15/20 08/15/20 Unknown History Valsartan [Diovan] 160 mg PO QDAY 08/15/20 08/15/20 Unknown History allopurinoL [Zyloprim] 200 mg PO DAILY 08/15/20 08/15/20 Unknown History carvediloL [Coreg] 3.125 mg PO BID 08/15/20 08/15/20 Unknown History Active Meds: Active Medications Acetaminophen (Acetaminophen 325 Mg Tab) 650 mg PO Q4H PRN PRN Reason: Pain MILD(1-3)/Fever >100.5/TELLO Hydrocodone Bitart/Acetaminophen (Hydrocodone/Acetaminophen 5-325 Mg Tab) 1 each PO Q6HR PRN PRN Reason: Pain, Moderate (4-6) Allopurinol (Allopurinol 100 Mg Tab) 200 mg PO DAILY [facility] Last Admin: 08/16/20 11:31 Dose: 200 mg Documented by: Ascorbic Acid (Ascorbic Acid 500 Mg Tab) 1,000 mg PO BID [facility] Last Admin: 08/16/20 12:05 Dose: 1,000 mg Documented by: Carvedilol (Carvedilol 3.125 Mg Tab) 3.125 mg PO BID [facility] Last Admin: 08/16/20 11:32 Dose: 3.125 mg Documented by: Colchicine (Colchicine 0.6 Mg Tab) 0.6 mg PO QOD [facility] Dexamethasone (Dexamethasone 4 Mg/Ml Vial) 6 mg IV DAILY [facility] Stop: 08/24/20 10:01 Last Admin: 08/16/20 11:29 Dose: 6 mg Documented by: Ezetimibe (Ezetimibe 10 Mg Tab) 10 mg PO DAILY [facility] Last Admin: 08/16/20 12:21 Dose: 10 mg Documented by: Furosemide (Furosemide 40 Mg Tab) 40 mg PO BID [facility] Last Admin: 08/16/20 11:31 Dose: 40 mg Documented by: Hydromorphone HCl (Hydromorphone 1 Mg/1 Ml Inj) 0.5 mg IV Q3H PRN PRN Reason: Pain , Severe (7-10) Azithromycin (Zithromax/Ns) 500 mg in 250 mls @ 250 mls/hr IV Q24H [facility] Last Admin: 08/15/20 23:41 Dose: 250 mls/hr Documented by: Ceftriaxone Sodium (Rocephin/Ns 2 Gm/100 Ml) 2 gm in 100 mls @ 200 mls/hr IV Q24HR [facility]; Protocol Last Admin: 08/16/20 11:31 Dose: 200 mls/hr Documented by: Sodium Chloride (Nacl 0.9%) 100 mls @ 999 mls/hr IV SARAI PRN PRN Reason: Hypotension Linagliptin (Linagliptin 5 Mg Tab) 5 mg PO QDAY [facility] Last Admin: 08/16/20 11:32 Dose: 5 mg Documented by: Metoclopramide HCl (Metoclopramide 10 Mg/2 Ml Inj) 5 mg IV Q6H PRN PRN Reason: Nausea And Vomiting Ondansetron HCl (Ondansetron 4 Mg/2 Ml Inj) 4 mg IV Q8H PRN PRN Reason: Nausea And Vomiting Oxycodone/Acetaminophen (Oxycodone /Acetaminophen 5-325mg Tab) 1 tab PO Q6H PRN PRN Reason: Pain, Moderate (4-6) Pantoprazole Sodium (Pantoprazole 40 Mg Tab) 40 mg PO DAILY [facility] Last Admin: 08/16/20 11:32 Dose: 40 mg Documented by: Pravastatin Sodium (Pravastatin 40 Mg Tab) 40 mg PO DAILY [facility] Last Admin: 08/16/20 12:20 Dose: 40 mg Documented by: Sodium Chloride (Sodium Chloride 0.9% 10 Ml Flush Syringe) 10 ml IV BID [facility] Last Admin: 08/16/20 12:04 Dose: 10 ml Documented by: Sodium Chloride (Sodium Chloride 0.9% 10 Ml Flush Syringe) 10 ml IV PRN PRN PRN Reason: LINE FLUSH Valsartan (Valsartan 160mg Tab) 160 mg PO QDAY [facility] Last Admin: 08/16/20 12:20 Dose: 160 mg Documented by: Zinc Sulfate (Zinc Sulfate 220 Mg Cap) 220 mg PO BID [facility] Last Admin: 08/16/20 12:20 Dose: 220 mg Documented by: Physical Examination - Physical Exam Narrative exam: Physical Exam (reviewed in chart to minimize risk of transmission) Constitutional: deferred Head, Ears, Nose: deferred Eyes: deferred Neck: deferred Oral: deferred Cardiovascular: deferred Respiratory: deferred GI: deferred Musculoskeletal: deferred Skin: deferred Hem/Lymphatic: deferred Psych: deferred Neurological: deferred - Constitutional Vitals: Vital Signs Temp Pulse Resp BP Pulse Ox 98.7 F 97 H 22 105/69 98 08/16/20 08:08 08/16/20 08:32 08/16/20 07:00 08/16/20 08:32 08/16/20 07:00 Temperature -Last 24 Hours Temperature 98.7 F Temperature 100.9 F Results - Labs CBC & Chem 7: 08/16/20 04:32 08/16/20 04:32 Labs: Abnormal lab results 08/15/20 08/15/20 08/15/20 Range/Units 17:01 17:01 17:01 MCH (28-32) pg RDW 15.8 H (13.2-15.2) % Lymph % (Auto) 7.4 L (13.4-35.0) % Lymph # (Auto) 0.7 L (1.2-5.4) K/mm3 Seg Neutrophils % 85.1 H (40.0-70.0) % Seg Neutrophils # 7.9 H (1.8-7.7) K/mm3 D-Dimer 1750.12 H (0-234) ng/mlDDU Sodium (137-145) mmol/L Potassium 5.1 H (3.6-5.0) mmol/L Chloride 97.1 L (98-107) mmol/L BUN 67 H (7-17) mg/dL Creatinine 4.8 H (0.6-1.2) mg/dL Glucose 101 H (65-100) mg/dL Hemoglobin A1c (4-6) % Calcium (8.4-10.2) mg/dL Ferritin (10.0-200.0) ng/mL AST 53 H (5-40) units/L Lactate Dehydrogenase (91-180) units/L C-Reactive Protein (0.00-1.30) mg/dL Total Protein (6.3-8.2) g/dL Albumin 3.4 L (3.9-5) g/dL 03/01/21 03/01/21 03/02/21 Range/Units 17:01 17:01 04:32 MCH 27 L (28-32) pg RDW 15.9 H (13.2-15.2) % Lymph % (Auto) 12.6 L (13.4-35.0) % Lymph # (Auto) 0.8 L (1.2-5.4) K/mm3 Seg Neutrophils % 83.7 H (40.0-70.0) % Seg Neutrophils # (1.8-7.7) K/mm3 D-Dimer (0-234) ng/mlDDU Sodium (137-145) mmol/L Potassium (3.6-5.0) mmol/L Chloride (98-107) mmol/L BUN (7-17) mg/dL Creatinine (0.6-1.2) mg/dL Glucose 101 H (65-100) mg/dL Hemoglobin A1c (4-6) % Calcium (8.4-10.2) mg/dL Ferritin 667.2 H (10.0-200.0) ng/mL AST (5-40) units/L Lactate Dehydrogenase 606 H (91-180) units/L C-Reactive Protein 4.60 H (0.00-1.30) mg/dL Total Protein (6.3-8.2) g/dL Albumin (3.9-5) g/dL 08/16/20 08/16/20 Range/Units 04:32 04:32 MCH (28-32) pg RDW (13.2-15.2) % Lymph % (Auto) (13.4-35.0) % Lymph # (Auto) (1.2-5.4) K/mm3 Seg Neutrophils % (40.0-70.0) % Seg Neutrophils # (1.8-7.7) K/mm3 D-Dimer (0-234) ng/mlDDU Sodium 136 L (137-145) mmol/L Potassium 6.7 H* D (3.6-5.0) mmol/L Chloride (98-107) mmol/L BUN 78 H (7-17) mg/dL Creatinine 6.2 H (0.6-1.2) mg/dL Glucose 223 H (65-100) mg/dL Hemoglobin A1c 7.6 H (4-6) % Calcium 7.8 L (8.4-10.2) mg/dL Ferritin (10.0-200.0) ng/mL AST 47 H (5-40) units/L Lactate Dehydrogenase (91-180) units/L C-Reactive Protein (0.00-1.30) mg/dL Total Protein 5.8 L D (6.3-8.2) g/dL Albumin 3.1 L (3.9-5) g/dL - Imaging and Cardiology Chest x-ray: report reviewed, image reviewed (b/l PNA) Assessment and Plan Cultures: SARS CoV2 PCR: Pending, positive as outpatient 08/15/2020 blood culture: No growth A/P: 64-year-old female with hypertension, diabetes, COPD, prior CVA, CKD was admitted to the hospital with cough and shortness of breath along with wheezing and headache going on for almost a month: #Bilateral pneumonia: Suspected secondary to COVID-19. Test was positive as outpatient. #Acute hypoxic respiratory failure: on NC. #ANGELIQUE on CKD: Renally dose antibiotics. #Mild transaminitis: Probably from COVID-19. Recs: -continue IV/PO Dexamethasone 6 mg daily x 10 days -continue empiric Ceftriaxone, Azithromycin -Given prolonged symptoms and renal failure, no indication for Remdesivir -prophylactic anticoagulation based on d-dimer per hospital protocol -trend ferritin, LDH, d-dimer, CRP every 2-3 days for risk stratification and to assess disease progression Dale Suarez MD, FACP [facility] ([facility] O: [phone] F: [phone]
[2020-08-16] MEDS: COLCHICINE 0.6 MG TAB PO SCH (17:01)
--- NOTE | 2020-08-16 17:11 | Progress Note ---
Assessment and Plan - Patient Problems (1) Acute respiratory failure with hypoxia Current Visit: Yes Status: Acute Plan to address problem: Coronavirus PCR positive Patient has bilateral pulmonary opacities IV Decadron Not a candidate for remdesivir (2) Person under investigation for severe acute respiratory syndrome coronavirus 2 (SARS-CoV-2) infection Current Visit: Yes Status: Acute Plan to address problem: Coronavirus PCR positive (3) Bilateral pneumonia Current Visit: Yes Status: Acute Plan to address problem: In the meantime treated bilateral community-acquired pneumonia Patient initiated on IV Zithromax and IV Rocephin (4) Hypertension Current Visit: Yes Status: Chronic Qualifiers: Hypertension type: essential hypertension Qualified Code(s): I10 - Essential (primary) hypertension Plan to address problem: Continue antihypertensives and adjust medications (5) T2DM (type 2 diabetes mellitus) Current Visit: Yes Status: Chronic Qualifiers: Diabetes mellitus assisted insulin use: unspecified assisted insulin use status Plan to address problem: Coverage for now Check hemoglobin A1c (6) COPD (chronic obstructive pulmonary disease) Current Visit: Yes Status: Chronic Plan to address problem: DuoNebs as needed (7) CKD (chronic kidney disease) Current Visit: Yes Status: Deleted Qualifiers: Chronic kidney disease stage: stage 5, not on chronic dialysis Qualified Code(s): N18.5 - Chronic kidney disease, stage 5 Plan to address problem: Nephrology consult requested (8) Hyperkalemia Current Visit: Yes Status: Acute Plan to address problem: Hyperkalemia treated. (9) DVT prophylaxis Current Visit: Yes Status: Acute Plan to address problem: On heparin and GI prophylaxis Subjective Date of service: 08/16/20 Principal diagnosis: Covid pneumonia, ANGELIQUE, acute respiratory failure with hypoxia Interval history: 64-year-old female with history of hypertension, diabetes, COPD and old CVA comes in for cough productive of yellow sputum and wheezing and headache and scratchy throat. Going on for 4 weeks since July 21. Symptoms have been progressive since July 21. Patient has took a course of Z-Bipin and steroids with no relief. Patient states that she requested a Covid test, insurance company and pressors positive after 3 days of testing today. Intermittent fever present. Exposure to coronavirus not known. Shortness of breath on exertion. 08/16/2020 Patient continues to be on high flow nasal cannula oxygen Patient to get Vas-Cath for intermittent hemodialysis Objective - Constitutional Vitals: Vital Signs - 12hr 08/16/20 08/16/20 08/16/20 07:00 08:08 08:32 Temperature 98.7 F Pulse Rate 86 97 H Respiratory 22 Rate Blood Pressure 105/69 105/69 O2 Sat by Pulse 98 Oximetry General appearance: Present: no acute distress, well-nourished - EENT Eyes: PERRL, EOM intact ENT: hearing intact, clear oral mucosa Ears: bilateral: normal - Neck Neck: supple, normal ROM - Respiratory Respiratory effort: normal Respiratory: bilateral: CTA - Breasts Breasts: normal - Cardiovascular Heart rate: 78 Rhythm: regular Heart Sounds: Present: S1 & S2. Absent: gallop, rub Extremities: pulses intact, No edema, normal color, Full ROM - Gastrointestinal General gastrointestinal: Present: soft, non-tender, non-distended, normal bowel sounds - Genitourinary Female genitourinary: normal - Integumentary Integumentary: clear, warm, dry - Musculoskeletal Musculoskeletal: 1, strength equal bilaterally - Neurologic Neurologic: moves all extremities - Psychiatric Psychiatric: memory intact, appropriate mood/affect, intact judgment & insight - Labs CBC & Chem 7: 08/23/20 05:47 08/23/20 05:47 Labs: Abnormal lab results 08/15/20 08/15/20 08/15/20 Range/Units 17:01 17:01 17:01 MCH (28-32) pg RDW 15.8 H (13.2-15.2) % Lymph % (Auto) 7.4 L (13.4-35.0) % Lymph # (Auto) 0.7 L (1.2-5.4) K/mm3 Seg Neutrophils % 85.1 H (40.0-70.0) % Seg Neutrophils # 7.9 H (1.8-7.7) K/mm3 D-Dimer 1750.12 H (0-234) ng/mlDDU Sodium (137-145) mmol/L Potassium 5.1 H (3.6-5.0) mmol/L Chloride 97.1 L (98-107) mmol/L BUN 67 H (7-17) mg/dL Creatinine 4.8 H (0.6-1.2) mg/dL Glucose 101 H (65-100) mg/dL Hemoglobin A1c (4-6) % Calcium (8.4-10.2) mg/dL Ferritin (10.0-200.0) ng/mL AST 53 H (5-40) units/L Lactate Dehydrogenase (91-180) units/L C-Reactive Protein (0.00-1.30) mg/dL Total Protein (6.3-8.2) g/dL Albumin 3.4 L (3.9-5) g/dL Coronavirus (PCR) (Negative) 08/15/20 08/15/20 08/16/20 Range/Units 17:01 17:01 04:32 MCH 27 L (28-32) pg RDW 15.9 H (13.2-15.2) % Lymph % (Auto) 12.6 L (13.4-35.0) % Lymph # (Auto) 0.8 L (1.2-5.4) K/mm3 Seg Neutrophils % 83.7 H (40.0-70.0) % Seg Neutrophils # (1.8-7.7) K/mm3 D-Dimer (0-234) ng/mlDDU Sodium (137-145) mmol/L Potassium (3.6-5.0) mmol/L Chloride (98-107) mmol/L BUN (7-17) mg/dL Creatinine (0.6-1.2) mg/dL Glucose 101 H (65-100) mg/dL Hemoglobin A1c (4-6) % Calcium (8.4-10.2) mg/dL Ferritin 667.2 H (10.0-200.0) ng/mL AST (5-40) units/L Lactate Dehydrogenase 606 H (91-180) units/L C-Reactive Protein 4.60 H (0.00-1.30) mg/dL Total Protein (6.3-8.2) g/dL Albumin (3.9-5) g/dL Coronavirus (PCR) (Negative) 08/16/20 08/16/20 08/16/20 Range/Units 04:32 04:32 Unknown MCH (28-32) pg RDW (13.2-15.2) % Lymph % (Auto) (13.4-35.0) % Lymph # (Auto) (1.2-5.4) K/mm3 Seg Neutrophils % (40.0-70.0) % Seg Neutrophils # (1.8-7.7) K/mm3 D-Dimer (0-234) ng/mlDDU Sodium 136 L (137-145) mmol/L Potassium 6.7 H* D (3.6-5.0) mmol/L Chloride (98-107) mmol/L BUN 78 H (7-17) mg/dL Creatinine 6.2 H (0.6-1.2) mg/dL Glucose 223 H (65-100) mg/dL Hemoglobin A1c 7.6 H (4-6) % Calcium 7.8 L (8.4-10.2) mg/dL Ferritin (10.0-200.0) ng/mL AST 47 H (5-40) units/L Lactate Dehydrogenase (91-180) units/L C-Reactive Protein (0.00-1.30) mg/dL Total Protein 5.8 L D (6.3-8.2) g/dL Albumin 3.1 L (3.9-5) g/dL Coronavirus (PCR) Positive A (Negative)
[2020-08-16] MEDS ORDERED: LIDOCAINE (2%) 20 MG/1 ML VIAL 20 ML MDV INFILTRATI ONE (19:01)
[2020-08-16] MEDS ORDERED: fentaNYL 100 MCG/2 ML INJ ONE (19:01)
[2020-08-16] MEDS ORDERED: MIDAZOLAM 2 MG/2 ML INJ ONE (19:01)
[2020-08-16] MEDS ORDERED: HEPARIN/NS 5000 UNIT/500ML 500 ML IR ONE (19:02)
[2020-08-16] MEDS: HEPARIN 10,000 UNITS/10 ML VIAL ONE ×2 (19:43→19:46)
--- NOTE | 2020-08-16 19:57 | Operative Report ---
Operative Report Operative Report: EXAM: 1. Ultrasound-guided puncture of the right internal jugular vein 2. Fluoroscopic-guided placement of a right internal jugular nontunneled noncuffed hemodialysis catheter. DATE: 08/16/2020 INDICATION: Acute renal failure requiring hemodialysis. MEDICATIONS: Please see nursing report for full details. DEVICES: 15 cm dual lumen hemodialysis catheter UROLOGIST PHYSICIAN: BACILIO CAMACHO MD CONTRAST: None PROCEDURE: The risks, benefits, and alternatives were discussed and informed consent was obtained. The patient was transported to the angiography suite in satisfactory/stable condition and was transported onto the angiography table. The patient's right internal jugular vein was assessed with ultrasound and determined to be patent prior to procedure. The patient was prepped and draped in a sterile fashion. The puncture site was anesthetized. The right internal jugular vein was patent on ultrasound. Under sonographic guidance, the right internal jugular vein was punctured with a 21-gauge micropuncture needle and a 0.018 inch wire was advanced through the needle. Needle was exchanged for transitional dilator. The inner dilator and wire was removed and a 0.035 inch wire was advanced through the transitional dilator into the inferior vena cava. Over the 0.035 inch wire, serial dilatation was performed. The catheter was advanced over the wire and positioned centrally under fluoroscopic guidance. 2-0 silk suture was used to secure the catheter. The catheter was charged with heparin 1000 units/mL of space. Biopatch and sterile dressing applied. The patient was transferred from the angiography suite back to the floor in stable condition. FINDINGS: 1. Excellent flow was obtained through the dialysis catheter with 20 mL syringes. 2. The catheter tip is in the right atrium. IMPRESSION: 1. Successful sonographically and fluoroscopically guided placement of a right internal jugular nontunneled noncuffed hemodialysis catheter.
[2020-08-16 21:12] LABS: Calcium 8.5 mg/dL (8.4-10.2)
[2020-08-16 21:15] LABS: C-Reactive Protein 6.3 mg/dL (0.00-1.30)
[2020-08-16 21:39] LABS: Hepatitis B Surface Antigen Non-Reactive (Negative); Hepatitis C Virus Antibody Non-Reactive (NonReactive)
[2020-08-16] MEDS: oxyCODONE /ACETAMINOPHEN 5-325MG TAB PO PRN (22:08)
[2020-08-16] MEDS: AZITHROMYCIN/NS 500 MG/250 ML 500 MG/250 ML BAG IV SCH (22:12)
[2020-08-17] MEDS: ACETAMINOPHEN 325 MG TAB PO PRN ×2 (05:14→08:55)
[2020-08-17 08:29] LABS: Basophils % (Auto) 0.1 % (0.0-1.8); Hematocrit 32.3 % (30.3-42.9); Hemoglobin 10.2 gm/dl (10.1-14.3); Lymphocytes # (Auto) 0.4 K/mm3 (1.2-5.4); Lymphocytes % (Auto) 4.2 % (13.4-35.0); Mean Corpuscular HGB Conc 32 % (30-34); Mean Corpuscular Volume 86 fl (79-97); Monocytes # (Auto) 0.6 K/mm3 (0.0-0.8); Monocytes % (Auto) 5.7 % (0.0-7.3); Platelet Count 213 K/mm3 (140-440); Red Blood Count 3.78 M/mm3 (3.65-5.03)
--- NOTE | 2020-08-17 08:29 | Progress Note ---
Subjective Interval history: patient was evaluated from renal standpoint but due to Covid status was not physically examined in person to reduce the risk of transmission and cross infection Found out that she did not receive dialysis yesterday that was ordered Current lab results were reviewed Interdisciplinary notes, Physical exam was also reviewed Past medical history: Reviewed Family history: Reviewed Social history: Reviewed Allergies: Reviewed Physical examination: Vitals: Reviewed Reviewed from service Labs and x-rays: Reviewed from today Assessment and plan #Renal failure: Severe, with hyperkalemia patient MILD, patient did not receive dialysis treatment yesterday even though it was ordered stat We will follow up on the basic metabolic profile, renal ultrasonogram and pending labs that have been ordered, to decide about with her she will need another treatment today or tomorrow Will discontinue angiotensin receptor vamshi, discontinue allopurinol, she is currently on dexamethasone will discontinue Colchicine #Anemia current hemoglobin is around 10.0 platelet count normal 230,000 #Will follow up on her pending chemistries including BUN and creatinine as well as potassium level, to make sure her dialysis has been satisfactory Will decide about second dialysis treatment if needed #tested positive for Covid 19 #Hyperkalemia currently appears to have improved, as of yesterday pending follow-up labs, we will discontinue angiotensin receptor vamshi #Blood pressure appears to be borderline We'll continue to follow and make recommendation for renal standpoint Objective - Vital Signs Vital signs: Vital Signs - 12hr 08/16/20 08/16/20 08/16/20 20:39 22:28 22:41 Temperature 99.1 F Pulse Rate 120 H Respiratory 24 Rate Blood Pressure 120/62 O2 Sat by Pulse 98 86 93 Oximetry 08/17/20 08/17/20 04:22 06:32 Temperature 101.0 F H 99.0 F Pulse Rate 112 H Respiratory 26 H Rate Blood Pressure 97/44 O2 Sat by Pulse 90 Oximetry - Lab 08/17/20 07:31 08/17/20 07:31 Most recent lab results Calcium 8.5 mg/dL (8.4-10.2) 08/16/20 17:01 Medications & Allergies - Medications Allergies/Adverse Reactions: Allergies gabapentin [From Neurontin] Allergy (Verified 08/15/20 17:25) Unknown rosuvastatin calcium [From Crestor] Allergy (Verified 08/15/20 17:25) Rash fluticasone propionate [From Advair Diskus] Adverse Reaction (Verified 08/15/20 17:25) Headache salmeterol xinafoate [From Advair Diskus] Adverse Reaction (Verified 08/15/20 17:25) Headache IV DYE Adverse Reaction (Uncoded 08/15/20 17:25) Itching Home Medications: Home Medications Medication Instructions Recorded Confirmed Last Taken Type Colchicine [Colcrys] 0.6 mg PO DAILY 08/15/20 08/15/20 Unknown History Cyanocobalamin (Vitamin B-12) 1,000 mcg IJ QMONTH 08/15/20 08/15/20 Unknown History [Physicians Ez Use B-12] Ergocalciferol [Vitamin D2] 1 cap PO QWEEK 08/15/20 08/15/20 Unknown History Ezetimibe/Simvastatin 1 each PO DAILY 08/15/20 08/15/20 Unknown History [Ezetimibe-Simvastatin 10-20 mg] Famotidine [Pepcid] 40 mg PO DAILY 08/15/20 08/15/20 Unknown History Furosemide [Lasix] 40 mg PO BID 08/15/20 08/15/20 Unknown History HYDROcodone/APAP 5-325 [[place] 1 each PO Q6HR PRN 08/15/20 08/15/20 Unknown History 5/325] Linagliptin [Tradjenta] 5 mg PO QDAY 08/15/20 08/15/20 Unknown History Omeprazole 40 mg PO DAILY 08/15/20 08/15/20 Unknown History Potassium Chloride [K-Dur] 20 meq PO BID 08/15/20 08/15/20 Unknown History Valsartan [Diovan] 160 mg PO QDAY 08/15/20 08/15/20 Unknown History allopurinoL [Zyloprim] 200 mg PO DAILY 08/15/20 08/15/20 Unknown History carvediloL [Coreg] 3.125 mg PO BID 08/15/20 08/15/20 Unknown History Albuterol Sulfate [Proair 90 mcg INHALATION Q4H PRN 08/17/20 08/17/20 Unknown History Digihaler] Spiriva 2.5 mcg INHALATION DAILY 08/17/20 08/17/20 Unknown History Symbicort 160-4.5 Mcg Inhaler 160 mcg INHALATION BID 08/17/20 08/17/20 Unknown History Active Medications: Generic Name Dose Route Start Last Admin Trade Name Freq PRN Reason Stop Dose Admin Acetaminophen 650 mg 08/15/20 22:16 08/17/20 05:14 Acetaminophen 325 Mg Tab PO 650 mg Q4H PRN Administration Pain MILD(1-3)/Fever >100.5/TELLO Hydrocodone Bitart/Acetaminophen 1 each 08/15/20 22:06 Hydrocodone/Acetaminophen 5-325 Mg Tab PO Q6HR PRN Pain, Moderate (4-6) Allopurinol 200 mg 08/16/20 10:00 08/16/20 11:31 Allopurinol 100 Mg Tab PO 200 mg DAILY SYLVAIN Administration Ascorbic Acid 1,000 mg 08/15/20 23:00 08/16/20 22:07 Ascorbic Acid 500 Mg Tab PO 1,000 mg BID SYLVAIN Administration Carvedilol 3.125 mg 08/15/20 23:00 08/16/20 22:08 Carvedilol 3.125 Mg Tab PO Not Given BID SYLVAIN Colchicine 0.6 mg 08/16/20 10:00 08/16/20 17:01 Colchicine 0.6 Mg Tab PO 0.6 mg QOD SYLVAIN Administration Dexamethasone 6 mg 08/16/20 10:00 08/16/20 11:29 Dexamethasone 4 Mg/Ml Vial IV 08/24/20 10:01 6 mg DAILY SYLVAIN Administration Ezetimibe 10 mg 08/16/20 10:00 08/16/20 12:21 Ezetimibe 10 Mg Tab PO 10 mg DAILY SYLVAIN Administration Furosemide 40 mg 08/15/20 23:00 08/16/20 22:13 Furosemide 40 Mg Tab PO 40 mg BID SYLVAIN Administration Hydromorphone HCl 0.5 mg 08/15/20 22:16 Hydromorphone 1 Mg/1 Ml Inj IV Q3H PRN Pain , Severe (7-10) Azithromycin 500 mg in 250 mls @ 250 mls/hr 08/15/20 23:00 08/16/20 22:12 Zithromax/Ns IV 250 mls/hr Q24H SYLVAIN Administration Ceftriaxone Sodium 2 gm in 100 mls @ 200 mls/hr 08/16/20 10:00 08/16/20 11:31 Rocephin/Ns 2 Gm/100 Ml IV 200 mls/hr Q24HR SYLVAIN Administration Protocol Sodium Chloride 100 mls @ 999 mls/hr 08/16/20 11:46 Nacl 0.9% IV SARAI PRN Hypotension Linagliptin 5 mg 08/16/20 10:00 08/16/20 11:32 Linagliptin 5 Mg Tab PO 5 mg QDAY SYLVAIN Administration Metoclopramide HCl 5 mg 08/15/20 22:37 Metoclopramide 10 Mg/2 Ml Inj IV Q6H PRN Nausea And Vomiting Ondansetron HCl 4 mg 08/15/20 22:16 Ondansetron 4 Mg/2 Ml Inj IV Q8H PRN Nausea And Vomiting Oxycodone/Acetaminophen 1 tab 08/15/20 22:16 08/16/20 22:08 Oxycodone /Acetaminophen 5-325mg Tab PO 1 tab Q6H PRN Administration Pain, Moderate (4-6) Pantoprazole Sodium 40 mg 08/16/20 10:00 08/16/20 11:32 Pantoprazole 40 Mg Tab PO 40 mg DAILY SYLVAIN Administration Pravastatin Sodium 40 mg 08/16/20 10:00 08/16/20 12:20 Pravastatin 40 Mg Tab PO 40 mg DAILY SYLVAIN Administration Sodium Chloride 10 ml 08/15/20 23:00 08/16/20 22:12 Sodium Chloride 0.9% 10 Ml Flush Syringe IV 10 ml BID SYLVAIN Administration Sodium Chloride 10 ml 08/15/20 22:16 Sodium Chloride 0.9% 10 Ml Flush Syringe IV PRN PRN LINE FLUSH Valsartan 160 mg 08/16/20 10:00 08/16/20 12:20 Valsartan 160mg Tab PO 160 mg QDAY SYLVAIN Administration Zinc Sulfate 220 mg 08/15/20 23:00 08/16/20 22:11 Zinc Sulfate 220 Mg Cap PO 220 mg BID SYLVAIN Administration
[2020-08-17 08:49] LABS: Calcium 7.9 mg/dL (8.4-10.2)
--- NOTE | 2020-08-17 09:20 | Progress Note ---
Assessment and Plan 64 y/o female with acute respiratory failure thought secondary to COVID, found to be positive 08/17/20: Found to be positive. Same recs as yesterday. Likely not a candidate for remdesivir given renal function. No nebulizer therapy, only inhaler therapy if and when needed. Continue supplemental O2 and proning is mcknight. Guarded prognosis given renal failure. 1. Follow up covid testing 2. Ok with current steroids 3. If patient brought in home inhalers, please allow pharmacy to verify and use them, no neb treatments 4. Prone during the day and and sleep prone at night as tolerated. Guarded prognosis. Subjective Date of service: 08/17/20 Interval history: No acute events. About to start HD, Had catheter placed yesterday. REspirations are stable. On 3 liters. Had fever last night. IMS medicated with tylenol. No cultures were taken Objective Vital Signs - 12hr 08/16/20 08/16/20 08/17/20 22:28 22:41 04:22 Temperature 99.1 F 101.0 F H Pulse Rate 120 H 112 H Respiratory 24 26 H Rate Blood Pressure 120/62 97/44 O2 Sat by Pulse 86 93 90 Oximetry 08/17/20 06:32 Temperature 99.0 F Pulse Rate Respiratory Rate Blood Pressure O2 Sat by Pulse Oximetry Constitutional: no acute distress, alert, other (obese) Eyes: non-icteric ENT: oropharynx moist Neck: supple Effort: normal Ascultation: Bilateral: diminished breath sounds CBC and BMP: 08/17/20 07:31 08/17/20 07:31 ABG, PT/INR, D-dimer: PT/INR, D-dimer D-Dimer 1750.12 ng/mlDDU (0-234) H 08/15/20 17:01 Abnormal lab findings: Abnormal Labs 08/15/20 08/15/20 08/15/20 17:01 17:01 17:01 MCH RDW 15.8 H Lymph % (Auto) 7.4 L Lymph # (Auto) 0.7 L Seg Neutrophils % 85.1 H Seg Neutrophils # 7.9 H D-Dimer 1750.12 H Sodium Potassium 5.1 H Chloride 97.1 L Carbon Dioxide BUN 67 H Creatinine 4.8 H Glucose 101 H POC Glucose Hemoglobin A1c Calcium Ferritin AST 53 H Lactate Dehydrogenase C-Reactive Protein Total Protein Albumin 3.4 L Coronavirus (PCR) 08/15/20 08/15/20 08/15/20 17:01 17:01 17:01 MCH RDW Lymph % (Auto) Lymph # (Auto) Seg Neutrophils % Seg Neutrophils # D-Dimer Sodium Potassium Chloride Carbon Dioxide BUN Creatinine Glucose 101 H POC Glucose Hemoglobin A1c Calcium Ferritin 667.2 H AST Lactate Dehydrogenase 606 H 567 H C-Reactive Protein 4.60 H 6.30 H Total Protein Albumin Coronavirus (PCR) 08/16/20 08/16/20 08/16/20 04:32 04:32 04:32 MCH 27 L RDW 15.9 H Lymph % (Auto) 12.6 L Lymph # (Auto) 0.8 L Seg Neutrophils % 83.7 H Seg Neutrophils # D-Dimer Sodium 136 L Potassium 6.7 H* D Chloride Carbon Dioxide BUN 78 H Creatinine 6.2 H Glucose 223 H POC Glucose Hemoglobin A1c 7.6 H Calcium 7.8 L Ferritin AST 47 H Lactate Dehydrogenase C-Reactive Protein Total Protein 5.8 L D Albumin 3.1 L Coronavirus (PCR) 08/16/20 08/16/20 08/16/20 17:01 17:05 21:41 MCH RDW Lymph % (Auto) Lymph # (Auto) Seg Neutrophils % Seg Neutrophils # D-Dimer Sodium Potassium Chloride Carbon Dioxide BUN 93 H Creatinine 7.7 H Glucose 228 H POC Glucose 150 H 204 H Hemoglobin A1c Calcium Ferritin AST Lactate Dehydrogenase C-Reactive Protein Total Protein Albumin Coronavirus (PCR) 08/16/20 08/17/20 08/17/20 Unknown 07:31 07:31 MCH 27 L RDW 16.0 H Lymph % (Auto) 4.2 L Lymph # (Auto) 0.4 L Seg Neutrophils % 90.0 H Seg Neutrophils # 8.8 H D-Dimer Sodium Potassium 5.8 H D Chloride Carbon Dioxide 20 L BUN 103 H Creatinine 9.0 H Glucose 219 H POC Glucose Hemoglobin A1c Calcium 7.9 L Ferritin AST Lactate Dehydrogenase C-Reactive Protein Total Protein Albumin Coronavirus (PCR) Positive A 08/17/20 07:44 MCH RDW Lymph % (Auto) Lymph # (Auto) Seg Neutrophils % Seg Neutrophils # D-Dimer Sodium Potassium Chloride Carbon Dioxide BUN Creatinine Glucose POC Glucose 188 H Hemoglobin A1c Calcium Ferritin AST Lactate Dehydrogenase C-Reactive Protein Total Protein Albumin Coronavirus (PCR)
[2020-08-17] MEDS: carvediloL 3.125 MG TAB PO SCH (10:46)
[2020-08-17] MEDS ORDERED: SODIUM CHLORIDE 0.9% 1000 ML 1,000 ML ONE (11:03)
--- NOTE | 2020-08-17 12:23 | Progress Note ---
Assessment and Plan Cultures: SARS CoV2 PCR: positive 08/15/2020 blood culture: No growth A/P: 64-year-old female with hypertension, diabetes, COPD, prior CVA, CKD was admitted to the hospital with cough and shortness of breath along with wheezing and headache going on for almost a month: #Bilateral pneumonia: secondary to COVID-19. Test was positive as outpatient as well. Symptomatic for a month. #Acute hypoxic respiratory failure: on NC. #ANGELIQUE on CKD: On HD per nephrology. #Mild transaminitis: Probably from COVID-19. Hepatitis panel negative Recs: -continue IV/PO Dexamethasone 6 mg daily x 10 days -continue empiric Ceftriaxone, Azithromycin x 5 days -Given prolonged symptoms and renal failure, no indication for Remdesivir -prophylactic anticoagulation based on d-dimer per hospital protocol -trend ferritin, LDH, d-dimer, CRP every 2-3 days for risk stratification and to assess disease progression Dale Suarez MD, FACP [facility] O: [phone] F: [phone] Subjective Date of service: 08/17/20 Interval history: Fever yesterday. Remains on NC oxygen. COVID-19 came back positive. Objective - Exam Narrative Exam: Physical Exam (reviewed in chart to minimize risk of transmission) Constitutional: deferred Head, Ears, Nose: deferred Eyes: deferred Neck: deferred Oral: deferred Cardiovascular: deferred Respiratory: deferred GI: deferred Musculoskeletal: deferred Skin: deferred Hem/Lymphatic: deferred Psych: deferred Neurological: deferred - Constitutional Vitals: Vital Signs Temp Pulse Resp BP Pulse Ox 99.0 F 112 H 26 H 97/44 90 08/17/20 06:32 08/17/20 04:22 08/17/20 04:22 08/17/20 04:22 08/17/20 04:22 Temperature -Last 24 Hours Temperature 99.0 F Temperature 101.0 F Temperature 99.1 F - Labs CBC & Chem 7: 08/17/20 07:31 08/17/20 07:31 Labs: Abnormal lab results 08/15/20 08/16/20 08/16/20 Range/Units 17:01 17:01 17:05 MCH (28-32) pg RDW (13.2-15.2) % Lymph % (Auto) (13.4-35.0) % Lymph # (Auto) (1.2-5.4) K/mm3 Seg Neutrophils % (40.0-70.0) % Seg Neutrophils # (1.8-7.7) K/mm3 Potassium (3.6-5.0) mmol/L Carbon Dioxide (22-30) mmol/L BUN 93 H (7-17) mg/dL Creatinine 7.7 H (0.6-1.2) mg/dL Glucose 228 H (65-100) mg/dL POC Glucose 150 H (70-105) mg/dL Calcium (8.4-10.2) mg/dL Lactate Dehydrogenase 567 H (91-180) units/L C-Reactive Protein 6.30 H (0.00-1.30) mg/dL Coronavirus (PCR) (Negative) 08/16/20 08/16/20 08/17/20 Range/Units 21:41 Unknown 07:31 MCH 27 L (28-32) pg RDW 16.0 H (13.2-15.2) % Lymph % (Auto) 4.2 L (13.4-35.0) % Lymph # (Auto) 0.4 L (1.2-5.4) K/mm3 Seg Neutrophils % 90.0 H (40.0-70.0) % Seg Neutrophils # 8.8 H (1.8-7.7) K/mm3 Potassium (3.6-5.0) mmol/L Carbon Dioxide (22-30) mmol/L BUN (7-17) mg/dL Creatinine (0.6-1.2) mg/dL Glucose (65-100) mg/dL POC Glucose 204 H (70-105) mg/dL Calcium (8.4-10.2) mg/dL Lactate Dehydrogenase (91-180) units/L C-Reactive Protein (0.00-1.30) mg/dL Coronavirus (PCR) Positive A (Negative) 08/17/20 08/17/20 Range/Units 07:31 07:44 MCH (28-32) pg RDW (13.2-15.2) % Lymph % (Auto) (13.4-35.0) % Lymph # (Auto) (1.2-5.4) K/mm3 Seg Neutrophils % (40.0-70.0) % Seg Neutrophils # (1.8-7.7) K/mm3 Potassium 5.8 H D (3.6-5.0) mmol/L Carbon Dioxide 20 L (22-30) mmol/L BUN 103 H (7-17) mg/dL Creatinine 9.0 H (0.6-1.2) mg/dL Glucose 219 H (65-100) mg/dL POC Glucose 188 H (70-105) mg/dL Calcium 7.9 L (8.4-10.2) mg/dL Lactate Dehydrogenase (91-180) units/L C-Reactive Protein (0.00-1.30) mg/dL Coronavirus (PCR) (Negative)
[2020-08-17] MEDS: ZINC SULFATE 220 MG CAP PO SCH ×2 (13:02→22:04)
[2020-08-17] MEDS: PANTOPRAZOLE 40 MG TAB PO SCH (13:02)
[2020-08-17] MEDS: PRAVASTATIN 40 MG TAB PO SCH (13:02)
[2020-08-17] MEDS: FUROSEMIDE 40 MG TAB PO SCH (13:02)
[2020-08-17] MEDS: allopurinoL 100 MG TAB PO SCH (13:02)
[2020-08-17] MEDS: cefTRIAXone/NS 2 GM/100 ML 2 GM/100 ML BAG IV SCH (13:02)
[2020-08-17] MEDS: LINAGLIPTIN 5 MG TAB PO SCH (13:02)
[2020-08-17] MEDS: ASCORBIC ACID 500 MG TAB PO SCH ×2 (13:02→22:04)
[2020-08-17] MEDS: dexAMETHasone 4 MG/ML VIAL IV SCH (13:03)
[2020-08-17] MEDS: VALSARTAN 160MG TAB PO SCH (13:03)
[2020-08-17] MEDS: EZETIMIBE 10 MG TAB PO SCH (13:03)
[2020-08-17] MEDS: oxyCODONE /ACETAMINOPHEN 5-325MG TAB PO PRN (13:29)
[2020-08-17] MEDS: ALBUTEROL 2.5 MG/3 ML NEBU IH SCH (20:41)
[2020-08-17] MEDS: AZITHROMYCIN/NS 500 MG/250 ML 500 MG/250 ML BAG IV SCH (22:13)
[2020-08-17] MEDS: INSULIN LISPRO 100 UNIT/ML SUB-Q SCH (22:27)
[2020-08-18] MEDS: ALBUTEROL 2.5 MG/3 ML NEBU IH SCH ×4 (02:21→20:39)
[2020-08-18] MEDS: INSULIN LISPRO 100 UNIT/ML SUB-Q SCH ×4 (07:30→22:36)
--- NOTE | 2020-08-18 08:38 | Progress Note ---
Subjective Interval history: Patient was evaluated today from renal standpoint but was not physically examined [id number] due to Covid 19 status and also to reduce the risk of transmission and cross infection with ongoing pandemic Events of 24 hours were noted, interdisciplinary notes were reviewed, Labs, imaging studies as well as physical examination portions were reviewed from the patient's chart Past medical history: Reviewed Family history: Reviewed Social history: Reviewed Allergies: Reviewed Physical examination: Vitals: Reviewed Reviewed from service Labs and x-rays: Reviewed from today Assessment and plan #Renal failure, unknown baseline creatinine, pending reports from her primary physician, patient did receive her hemodialysis treatment yesterday which she tolerated fairly well #Ultrasonogram report currently pending #Secondary hyperparathyroidism, will start her on calcitriol 0.25 daily, #Will also start her on renal caps #Anemia in renal failure will give her 1 dose of erythropoietin 20,000 today and follow #Hypotension currently doing much better, blood pressure is 110/49 without any antihypertensive medication #Hyperkalemia: Patient was taken off the angiotensin receptor vamshi was also taking potassium in the outpatient setting #Multiple other comorbidities including hypertension diabetes CVA, prior history of COPD underlying chronic kidney disease #Covid 19: #Prognosis remains guarded We'll continue to follow and make recommendation for renal standpoint Objective - Vital Signs Vital signs: Vital Signs - 12hr 08/17/20 08/18/20 08/18/20 21:44 02:23 03:52 Temperature 99.3 F 99.6 F Pulse Rate 110 H 100 H Pulse Rate [ 89 Anterior Bilateral Throughout] Respiratory 26 H 24 Rate Respiratory 18 Rate [Anterior Bilateral Throughout] Blood Pressure 94/55 110/49 O2 Sat by Pulse 92 57 L Oximetry 08/18/20 08/18/20 04:00 06:08 Temperature Pulse Rate Pulse Rate [ Anterior Bilateral Throughout] Respiratory Rate Respiratory Rate [Anterior Bilateral Throughout] Blood Pressure O2 Sat by Pulse 85 93 Oximetry - Lab 08/17/20 07:31 08/17/20 07:31 Most recent lab results Calcium 7.9 mg/dL (8.4-10.2) L 08/17/20 07:31 Phosphorus 5.90 mg/dL (2.5-4.5) H 08/17/20 09:35 Medications & Allergies - Medications Allergies/Adverse Reactions: Allergies gabapentin [From Neurontin] Allergy (Verified 08/15/20 17:25) Unknown rosuvastatin calcium [From Crestor] Allergy (Verified 08/15/20 17:25) Rash fluticasone propionate [From Advair Diskus] Adverse Reaction (Verified 08/15/20 17:25) Headache salmeterol xinafoate [From Advair Diskus] Adverse Reaction (Verified 08/15/20 17:25) Headache IV DYE Adverse Reaction (Uncoded 08/15/20 17:25) Itching Home Medications: Home Medications Medication Instructions Recorded Confirmed Last Taken Type Colchicine [Colcrys] 0.6 mg PO DAILY 08/15/20 08/15/20 Unknown History Cyanocobalamin (Vitamin B-12) 1,000 mcg IJ QMONTH 08/15/20 08/15/20 Unknown History [Physicians Ez Use B-12] Ergocalciferol [Vitamin D2] 1 cap PO QWEEK 08/15/20 08/15/20 Unknown History Ezetimibe/Simvastatin 1 each PO DAILY 08/15/20 08/15/20 Unknown History [Ezetimibe-Simvastatin 10-20 mg] Famotidine [Pepcid] 40 mg PO DAILY 08/15/20 08/15/20 Unknown History Furosemide [Lasix] 40 mg PO BID 08/15/20 08/15/20 Unknown History HYDROcodone/APAP 5-325 [[place] 1 each PO Q6HR PRN 08/15/20 08/15/20 Unknown History 5/325] Linagliptin [Tradjenta] 5 mg PO QDAY 08/15/20 08/15/20 Unknown History Omeprazole 40 mg PO DAILY 08/15/20 08/15/20 Unknown History Potassium Chloride [K-Dur] 20 meq PO BID 08/15/20 08/15/20 Unknown History Valsartan [Diovan] 160 mg PO QDAY 08/15/20 08/15/20 Unknown History allopurinoL [Zyloprim] 200 mg PO DAILY 08/15/20 08/15/20 Unknown History carvediloL [Coreg] 3.125 mg PO BID 08/15/20 08/15/20 Unknown History Albuterol Sulfate [Proair 90 mcg INHALATION Q4H PRN 08/17/20 08/17/20 Unknown History Digihaler] Spiriva 2.5 mcg INHALATION DAILY 08/17/20 08/17/20 Unknown History Symbicort 160-4.5 Mcg Inhaler 160 mcg INHALATION BID 08/17/20 08/17/20 Unknown History Active Medications: Generic Name Dose Route Start Last Admin Trade Name Freq PRN Reason Stop Dose Admin Acetaminophen 650 mg 08/15/20 22:16 08/17/20 08:55 Acetaminophen 325 Mg Tab PO 650 mg Q4H PRN Administration Pain MILD(1-3)/Fever >100.5/TELLO Hydrocodone Bitart/Acetaminophen 1 each 08/15/20 22:06 Hydrocodone/Acetaminophen 5-325 Mg Tab PO Q6HR PRN Pain, Moderate (4-6) Albuterol 2.5 mg 08/17/20 19:26 08/18/20 02:21 Albuterol 2.5 Mg/3 Ml Nebu IH 2.5 mg Q6HRT SYLVAIN Administration Ascorbic Acid 1,000 mg 08/15/20 23:00 08/17/20 22:04 Ascorbic Acid 500 Mg Tab PO 1,000 mg BID SYLVAIN Administration Calcitriol 0.25 mcg 08/18/20 10:00 Calcitriol 0.25 Mcg Cap PO QDAY SYLVAIN Colchicine 0.6 mg 08/16/20 10:00 08/16/20 17:01 Colchicine 0.6 Mg Tab PO 0.6 mg QOD SYLVAIN Administration Dexamethasone 6 mg 08/18/20 10:00 Dexamethasone 4 Mg Tab PO 08/24/20 12:00 DAILY SYLVAIN Ezetimibe 10 mg 08/16/20 10:00 08/17/20 13:03 Ezetimibe 10 Mg Tab PO 10 mg DAILY SYLVAIN Administration Epoetin Harinder 20,000 unit 08/18/20 09:00 Epoetin Harinder 20,000 Unit/1 Ml Inj SUB-Q 08/18/20 09:01 ONCE ONE Hydromorphone HCl 0.5 mg 08/15/20 22:16 Hydromorphone 1 Mg/1 Ml Inj IV Q3H PRN Pain , Severe (7-10) Azithromycin 500 mg in 250 mls @ 250 mls/hr 08/15/20 23:00 08/17/20 22:13 Zithromax/Ns IV 08/19/20 23:59 250 mls/hr Q24H SYLVAIN Administration Ceftriaxone Sodium 2 gm in 100 mls @ 200 mls/hr 08/16/20 10:00 08/17/20 13:02 Rocephin/Ns 2 Gm/100 Ml IV 08/19/20 10:29 200 mls/hr Q24HR SYLVAIN Administration Protocol Sodium Chloride 100 mls @ 999 mls/hr 08/16/20 11:46 Nacl 0.9% IV SARAI PRN Hypotension Insulin Human Lispro 0 unit 08/17/20 22:00 08/17/20 22:27 Insulin Lispro 100 Unit/Ml SUB-Q 2 unit ACHS SYLVAIN Administration Protocol Linagliptin 5 mg 08/16/20 10:00 08/17/20 13:02 Linagliptin 5 Mg Tab PO 5 mg QDAY SYLVAIN Administration Metoclopramide HCl 5 mg 08/15/20 22:37 Metoclopramide 10 Mg/2 Ml Inj IV Q6H PRN Nausea And Vomiting Multivit/Ca Carb/B Cmplx/FA/Prenat 1 cap 08/18/20 09:00 Folic Acid/Vit B Comp W-C 1 Mg (Renal Caps) PO 08/18/20 11:00 ONCE@0900 NR Ondansetron HCl 4 mg 08/15/20 22:16 Ondansetron 4 Mg/2 Ml Inj IV Q8H PRN Nausea And Vomiting Oxycodone/Acetaminophen 1 tab 08/15/20 22:16 08/17/20 13:29 Oxycodone /Acetaminophen 5-325mg Tab PO 1 tab Q6H PRN Administration Pain, Moderate (4-6) Pantoprazole Sodium 40 mg 08/16/20 10:00 08/17/20 13:02 Pantoprazole 40 Mg Tab PO 40 mg DAILY SYLVAIN Administration Pravastatin Sodium 40 mg 08/16/20 10:00 08/17/20 13:02 Pravastatin 40 Mg Tab PO 40 mg DAILY SYLVAIN Administration Sodium Chloride 10 ml 08/15/20 23:00 08/17/20 22:03 Sodium Chloride 0.9% 10 Ml Flush Syringe IV 10 ml BID SYLVAIN Administration Sodium Chloride 10 ml 08/15/20 22:16 Sodium Chloride 0.9% 10 Ml Flush Syringe IV PRN PRN LINE FLUSH Zinc Sulfate 220 mg 08/15/20 23:00 08/17/20 22:04 Zinc Sulfate 220 Mg Cap PO 220 mg BID SYLVAIN Administration
--- NOTE | 2020-08-18 08:46 | Progress Note ---
Assessment and Plan 64 y/o female with acute respiratory failure thought secondary to COVID, found to be positive 08/18/20: Prone as tolerated during day and sleep prone at night. Continue supplemental O2. Steroids for 10 days. Hold on nebs. Needs RT consult for documentation of oxygen therapy and requirements. 08/17/20: Found to be positive. Same recs as yesterday. Likely not a candidate for remdesivir given renal function. No nebulizer therapy, only inhaler therapy if and when needed. Continue supplemental O2 and proning is mcknight. Guarded prog nosis given renal failure. 1. Follow up covid testing 2. Ok with current steroids 3. If patient brought in home inhalers, please allow pharmacy to verify and use them, no neb treatments 4. Prone during the day and and sleep prone at night as tolerated. Guarded prognosis. Subjective Date of service: 08/18/20 Interval history: No acute events documented. Some low sats recorded but no documentation of distress or increases in FiO2 requirement. Remains on Decadron. No Remdesivir secondary to renal disease. Objective Vital Signs - 12hr 08/17/20 08/18/20 08/18/20 21:44 02:23 03:52 Temperature 99.3 F 99.6 F Pulse Rate 110 H 100 H Pulse Rate [ 89 Anterior Bilateral Throughout] Respiratory 26 H 24 Rate Respiratory 18 Rate [Anterior Bilateral Throughout] Blood Pressure 94/55 110/49 O2 Sat by Pulse 92 57 L Oximetry 08/18/20 08/18/20 04:00 06:08 Temperature Pulse Rate Pulse Rate [ Anterior Bilateral Throughout] Respiratory Rate Respiratory Rate [Anterior Bilateral Throughout] Blood Pressure O2 Sat by Pulse 85 93 Oximetry Constitutional: no acute distress, alert, other (obese) Eyes: non-icteric ENT: oropharynx moist Neck: supple Effort: normal Ascultation: Bilateral: diminished breath sounds CBC and BMP: 08/17/20 07:31 08/17/20 07:31 ABG, PT/INR, D-dimer: PT/INR, D-dimer D-Dimer 1750.12 ng/mlDDU (0-234) H 08/15/20 17:01 Abnormal lab findings: Abnormal Labs 08/15/20 08/15/20 08/15/20 17:01 17:01 17:01 MCH RDW 15.8 H Lymph % (Auto) 7.4 L Lymph # (Auto) 0.7 L Seg Neutrophils % 85.1 H Seg Neutrophils # 7.9 H D-Dimer 1750.12 H Sodium Potassium 5.1 H Chloride 97.1 L Carbon Dioxide BUN 67 H Creatinine 4.8 H Glucose 101 H POC Glucose Hemoglobin A1c Calcium Phosphorus Ferritin AST 53 H Lactate Dehydrogenase C-Reactive Protein Total Protein Albumin 3.4 L PTH Intact Coronavirus (PCR) 08/15/20 08/15/20 08/15/20 17:01 17:01 17:01 MCH RDW Lymph % (Auto) Lymph # (Auto) Seg Neutrophils % Seg Neutrophils # D-Dimer Sodium Potassium Chloride Carbon Dioxide BUN Creatinine Glucose 101 H POC Glucose Hemoglobin A1c Calcium Phosphorus Ferritin 667.2 H AST Lactate Dehydrogenase 606 H 567 H C-Reactive Protein 4.60 H 6.30 H Total Protein Albumin PTH Intact Coronavirus (PCR) 08/16/20 08/16/20 08/16/20 04:32 04:32 04:32 MCH 27 L RDW 15.9 H Lymph % (Auto) 12.6 L Lymph # (Auto) 0.8 L Seg Neutrophils % 83.7 H Seg Neutrophils # D-Dimer Sodium 136 L Potassium 6.7 H* D Chloride Carbon Dioxide BUN 78 H Creatinine 6.2 H Glucose 223 H POC Glucose Hemoglobin A1c 7.6 H Calcium 7.8 L Phosphorus Ferritin AST 47 H Lactate Dehydrogenase C-Reactive Protein Total Protein 5.8 L D Albumin 3.1 L PTH Intact Coronavirus (PCR) 08/16/20 08/16/20 08/16/20 17:01 17:05 21:41 MCH RDW Lymph % (Auto) Lymph # (Auto) Seg Neutrophils % Seg Neutrophils # D-Dimer Sodium Potassium Chloride Carbon Dioxide BUN 93 H Creatinine 7.7 H Glucose 228 H POC Glucose 150 H 204 H Hemoglobin A1c Calcium Phosphorus Ferritin AST Lactate Dehydrogenase C-Reactive Protein Total Protein Albumin PTH Intact Coronavirus (PCR) 08/16/20 08/17/20 08/17/20 Unknown 07:31 07:31 MCH 27 L RDW 16.0 H Lymph % (Auto) 4.2 L Lymph # (Auto) 0.4 L Seg Neutrophils % 90.0 H Seg Neutrophils # 8.8 H D-Dimer Sodium Potassium 5.8 H D Chloride Carbon Dioxide 20 L BUN 103 H Creatinine 9.0 H Glucose 219 H POC Glucose Hemoglobin A1c Calcium 7.9 L Phosphorus Ferritin AST Lactate Dehydrogenase C-Reactive Protein Total Protein Albumin PTH Intact Coronavirus (PCR) Positive A 08/17/20 08/17/20 08/17/20 07:44 09:35 09:35 MCH RDW Lymph % (Auto) Lymph # (Auto) Seg Neutrophils % Seg Neutrophils # D-Dimer Sodium Potassium Chloride Carbon Dioxide BUN Creatinine Glucose POC Glucose 188 H Hemoglobin A1c Calcium Phosphorus 5.90 H Ferritin AST Lactate Dehydrogenase C-Reactive Protein Total Protein Albumin PTH Intact 452.6 H Coronavirus (PCR) 08/17/20 08/17/20 08/17/20 11:23 16:38 21:39 MCH RDW Lymph % (Auto) Lymph # (Auto) Seg Neutrophils % Seg Neutrophils # D-Dimer Sodium Potassium Chloride Carbon Dioxide BUN Creatinine Glucose POC Glucose 205 H 212 H 206 H Hemoglobin A1c Calcium Phosphorus Ferritin AST Lactate Dehydrogenase C-Reactive Protein Total Protein Albumin PTH Intact Coronavirus (PCR)
[2020-08-18 09:00] LABS: Basophils % (Auto) 0.2 % (0.0-1.8); Hematocrit 31.4 % (30.3-42.9); Lymphocytes # (Auto) 0.5 K/mm3 (1.2-5.4); Lymphocytes % (Auto) 5.9 % (13.4-35.0); Mean Corpuscular HGB Conc 32 % (30-34); Mean Corpuscular Volume 86 fl (79-97); Monocytes # (Auto) 0.6 K/mm3 (0.0-0.8); Monocytes % (Auto) 6.6 % (0.0-7.3); Platelet Count 194 K/mm3 (140-440); Red Blood Count 3.64 M/mm3 (3.65-5.03); Red Cell Distribution Width 15.8 % (13.2-15.2)
[2020-08-18] MEDS ORDERED: FOLIC ACID/VIT B COMP W-C 1 MG (RENAL CAPS) PO NR (09:00)
[2020-08-18] MEDS: EZETIMIBE 10 MG TAB PO SCH (09:15)
[2020-08-18] MEDS: CALCITRIOL 0.25 MCG CAP PO SCH (09:15)
[2020-08-18] MEDS: ASCORBIC ACID 500 MG TAB PO SCH ×2 (09:15→23:01)
[2020-08-18] MEDS: cefTRIAXone/NS 2 GM/100 ML 2 GM/100 ML BAG IV SCH (09:15)
[2020-08-18] MEDS: PRAVASTATIN 40 MG TAB PO SCH (09:16)
[2020-08-18] MEDS: LINAGLIPTIN 5 MG TAB PO SCH (09:16)
[2020-08-18] MEDS: PANTOPRAZOLE 40 MG TAB PO SCH (09:16)
[2020-08-18] MEDS: COLCHICINE 0.6 MG TAB PO SCH (09:16)
[2020-08-18] MEDS: FOLIC ACID/VIT B COMP W-C 1 MG (RENAL CAPS) PO SCH (09:17)
[2020-08-18] MEDS: ZINC SULFATE 220 MG CAP PO SCH ×2 (09:17→23:01)
[2020-08-18 09:18] LABS: Alanine Aminotransferase 13 units/L (7-56); Albumin 2.5 g/dL (3.9-5); Blood Urea Nitrogen 84 mg/dL (7-17); Calcium 7.5 mg/dL (8.4-10.2); Hemolysis Index 29
[2020-08-18 09:19] LABS: BUN/Creatinine Ratio 10
[2020-08-18] MEDS: oxyCODONE /ACETAMINOPHEN 5-325MG TAB PO PRN (09:58)
[2020-08-18] MEDS ORDERED: DEXAMETHASONE 4 MG TAB PO SCH (10:00)
[2020-08-18] MEDS ORDERED: EPOETIN ALFA 20,000 UNIT/1 ML INJ SUB-Q NR (10:00)
[2020-08-18] MEDS ORDERED: SODIUM CHLORIDE 0.9% 100 ML IV PRN ×2 (10:00→10:07)
--- NOTE | 2020-08-18 14:15 | Progress Note ---
Assessment and Plan Cultures: SARS CoV2 PCR: positive 08/15/2020 blood culture: No growth A/P: 64-year-old female with hypertension, diabetes, COPD, prior CVA, CKD was admitted to the hospital with cough and shortness of breath along with wheezing and headache going on for almost a month: #Bilateral pneumonia: secondary to COVID-19. Test was positive as outpatient as well. Symptomatic for a month. #Acute hypoxic respiratory failure: on NC. #ANGELIQUE on CKD: On HD per nephrology. #Mild transaminitis: Probably from COVID-19. Hepatitis panel negative Recs: -continue steroids -continue empiric Ceftriaxone, Azithromycin x 5 days -Given prolonged symptoms and renal failure, unlikely to benefit from Remdesivir -prophylactic anticoagulation based on d-dimer per hospital protocol -recheck ferritin, LDH, d-dimer, CRP, patient may benefit from tocilizumab Dale Suarez MD, FACP [facility] O: [phone] F: [phone] Subjective Date of service: 08/18/20 Interval history: No fever. Oxygen requirements increased to HFNC. Objective - Exam Narrative Exam: Physical Exam (reviewed in chart to minimize risk of transmission) Constitutional: deferred Head, Ears, Nose: deferred Eyes: deferred Neck: deferred Oral: deferred Cardiovascular: deferred Respiratory: deferred GI: deferred Musculoskeletal: deferred Skin: deferred Hem/Lymphatic: deferred Psych: deferred Neurological: deferred - Constitutional Vitals: Vital Signs Temp Pulse Resp BP Pulse Ox 99.6 F 92 H 24 111/55 100 08/18/20 12:20 08/18/20 12:20 08/18/20 12:20 08/18/20 12:20 08/18/20 12:20 Temperature -Last 24 Hours Temperature 99.6 F Temperature 98.7 F Temperature 99.6 F Temperature 99.3 F Temperature 99.3 F - Labs CBC & Chem 7: 08/18/20 08:36 08/18/20 08:36 Labs: Abnormal lab results 08/17/20 08/17/20 08/17/20 Range/Units 09:35 09:35 11:23 RBC (3.65-5.03) M/mm3 Hgb (10.1-14.3) gm/dl RDW (13.2-15.2) % Lymph % (Auto) (13.4-35.0) % Lymph # (Auto) (1.2-5.4) K/mm3 Seg Neutrophils % (40.0-70.0) % Sodium (137-145) mmol/L Chloride (98-107) mmol/L Carbon Dioxide (22-30) mmol/L BUN (7-17) mg/dL Creatinine (0.6-1.2) mg/dL Glucose (65-100) mg/dL POC Glucose 205 H (70-105) mg/dL Calcium (8.4-10.2) mg/dL Phosphorus 5.90 H (2.5-4.5) mg/dL Total Protein (6.3-8.2) g/dL Albumin (3.9-5) g/dL PTH Intact 452.6 H (15-65) pg/mL 08/17/20 08/17/20 08/18/20 Range/Units 16:38 21:39 08:00 RBC (3.65-5.03) M/mm3 Hgb (10.1-14.3) gm/dl RDW (13.2-15.2) % Lymph % (Auto) (13.4-35.0) % Lymph # (Auto) (1.2-5.4) K/mm3 Seg Neutrophils % (40.0-70.0) % Sodium (137-145) mmol/L Chloride (98-107) mmol/L Carbon Dioxide (22-30) mmol/L BUN (7-17) mg/dL Creatinine (0.6-1.2) mg/dL Glucose (65-100) mg/dL POC Glucose 212 H 206 H 229 H (70-105) mg/dL Calcium (8.4-10.2) mg/dL Phosphorus (2.5-4.5) mg/dL Total Protein (6.3-8.2) g/dL Albumin (3.9-5) g/dL PTH Intact (15-65) pg/mL 08/18/20 08/18/20 08/18/20 Range/Units 08:36 08:36 11:00 RBC 3.64 L (3.65-5.03) M/mm3 Hgb 10.0 L (10.1-14.3) gm/dl RDW 15.8 H (13.2-15.2) % Lymph % (Auto) 5.9 L (13.4-35.0) % Lymph # (Auto) 0.5 L (1.2-5.4) K/mm3 Seg Neutrophils % 87.3 H (40.0-70.0) % Sodium 135 L D (137-145) mmol/L Chloride 95.8 L (98-107) mmol/L Carbon Dioxide 20 L (22-30) mmol/L BUN 84 H (7-17) mg/dL Creatinine 8.4 H (0.6-1.2) mg/dL Glucose 262 H (65-100) mg/dL POC Glucose 238 H (70-105) mg/dL Calcium 7.5 L (8.4-10.2) mg/dL Phosphorus (2.5-4.5) mg/dL Total Protein 6.1 L (6.3-8.2) g/dL Albumin 2.5 L (3.9-5) g/dL PTH Intact (15-65) pg/mL
[2020-08-18] MEDS: dexAMETHasone 20 MG in SODIUM CHLORIDE 0.9% 50 ML IV SCH ×2 (16:08→23:02)
[2020-08-18] MEDS: guaiFENesin/CODEINE 100-10MG ORAL LIQD 5 ML PO PRN (17:52)
--- NOTE | 2020-08-18 18:01 | Progress Note ---
Assessment and Plan - Patient Problems (1) Acute respiratory failure with hypoxia Current Visit: Yes Status: Acute Plan to address problem: Coronavirus PCR positive Patient has bilateral pulmonary opacities Question of volume overload present because of the high creatinine and possible CKD/end-stage renal disease On high flow nasal cannula oxygen IV Decadron (2) Person under investigation for severe acute respiratory syndrome coronavirus 2 (SARS-CoV-2) infection Current Visit: Yes Status: Acute Plan to address problem: Coronavirus PCR requested (3) Bilateral pneumonia Current Visit: Yes Status: Acute Plan to address problem: In the meantime treated bilateral community-acquired pneumonia Patient initiated on IV Zithromax and IV Rocephin (4) Hypertension Current Visit: Yes Status: Chronic Qualifiers: Hypertension type: essential hypertension Qualified Code(s): I10 - Essential (primary) hypertension Plan to address problem: Continue antihypertensives and adjust medications (5) T2DM (type 2 diabetes mellitus) Current Visit: Yes Status: Chronic Qualifiers: 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 (9) DVT prophylaxis Current Visit: Yes Status: Acute Plan to address problem: On heparin and GI prophylaxis Subjective Date of service: 08/17/20 Principal diagnosis: Code pneumonia, acute kidney injury, respiratory failure with hypoxia Interval history: 64-year-old female with history of hypertension, diabetes, COPD and old CVA comes in for cough productive of yellow sputum and wheezing and headache and scratchy throat. Going on for 4 weeks since July 21. Symptoms have been progressive since July 21. Patient has took a course of Z-Bipin and steroids with no relief. Patient states that she requested a Covid test, insurance company and pressors positive after 3 days of testing today. Intermittent fever present. Exposure to coronavirus not known. Shortness of breath on exertion. 08/16/2020 Patient continues to be on high flow nasal cannula oxygen Patient to get Vas-Cath for intermittent hemodialysis 08/17/2020 Patient continues to be hypoxic Patient getting hemodialysis Patient on high flow nasal cannula oxygen Objective - Constitutional Vitals: Vital Signs - 12hr 08/18/20 08/18/20 08/18/20 06:08 08:00 08:47 Temperature Pulse Rate Pulse Rate [ 106 H Anterior Bilateral Throughout] Respiratory Rate Respiratory 20 Rate [Anterior Bilateral Throughout] Blood Pressure O2 Sat by Pulse 93 96 Oximetry O2 Sat by Pulse Oximetry [ Anterior Bilateral Throughout] 08/18/20 08/18/20 08/18/20 11:00 11:03 11:15 Temperature 98.7 F 98.7 F Pulse Rate 97 H 105 H 104 H Pulse Rate [ Anterior Bilateral Throughout] Respiratory 24 24 Rate Respiratory Rate [Anterior Bilateral Throughout] Blood Pressure 110/58 112/67 118/56 O2 Sat by Pulse 92 Oximetry O2 Sat by Pulse 100 Oximetry [ Anterior Bilateral Throughout] 08/18/20 08/18/20 08/18/20 11:30 11:45 12:00 Temperature Pulse Rate 104 H 102 H 96 H Pulse Rate [ Anterior Bilateral Throughout] Respiratory Rate Respiratory Rate [Anterior Bilateral Throughout] Blood Pressure 107/57 105/54 78/40 O2 Sat by Pulse Oximetry O2 Sat by Pulse Oximetry [ Anterior Bilateral Throughout] 08/18/20 08/18/20 08/18/20 12:20 14:57 14:58 Temperature 99.6 F Pulse Rate 92 H Pulse Rate [ 95 H Anterior Bilateral Throughout] Respiratory 24 Rate Respiratory 19 Rate [Anterior Bilateral Throughout] Blood Pressure 111/55 O2 Sat by Pulse 94 Oximetry O2 Sat by Pulse 100 Oximetry [ Anterior Bilateral Throughout] 08/18/20 16:18 Temperature 98.8 F Pulse Rate 94 H Pulse Rate [ Anterior Bilateral Throughout] Respiratory 26 H Rate Respiratory Rate [Anterior Bilateral Throughout] Blood Pressure 101/61 O2 Sat by Pulse 93 Oximetry O2 Sat by Pulse Oximetry [ Anterior Bilateral Throughout] General appearance: Present: mild distress, well-nourished - EENT Eyes: PERRL, EOM intact ENT: hearing intact, clear oral mucosa Ears: bilateral: normal - Neck Neck: supple, normal ROM - Respiratory Respiratory effort: normal Respiratory: bilateral: CTA - Breasts Breasts: normal - Cardiovascular Heart rate: 78 Rhythm: regular Heart Sounds: Present: S1 & S2. Absent: gallop, rub Extremities: pulses intact, No edema, normal color, Full ROM - Gastrointestinal General gastrointestinal: Present: soft, non-tender, non-distended, normal bowel sounds - Genitourinary Female genitourinary: normal - Integumentary Integumentary: clear, warm, dry - Musculoskeletal Musculoskeletal: 1, strength equal bilaterally - Neurologic Neurologic: moves all extremities - Psychiatric Psychiatric: memory intact, appropriate mood/affect, intact judgment & insight - Labs CBC & Chem 7: 08/23/20 05:47 08/23/20 05:47 Labs: Abnormal lab results 08/17/20 08/18/20 08/18/20 Range/Units 21:39 08:00 08:36 RBC 3.64 L (3.65-5.03) M/mm3 Hgb 10.0 L (10.1-14.3) gm/dl RDW 15.8 H (13.2-15.2) % Lymph % (Auto) 5.9 L (13.4-35.0) % Lymph # (Auto) 0.5 L (1.2-5.4) K/mm3 Seg Neutrophils % 87.3 H (40.0-70.0) % Sodium (137-145) mmol/L Chloride (98-107) mmol/L Carbon Dioxide (22-30) mmol/L BUN (7-17) mg/dL Creatinine (0.6-1.2) mg/dL Glucose (65-100) mg/dL POC Glucose 206 H 229 H (70-105) mg/dL Calcium (8.4-10.2) mg/dL Total Protein (6.3-8.2) g/dL Albumin (3.9-5) g/dL 08/18/20 08/18/20 Range/Units 08:36 11:00 RBC (3.65-5.03) M/mm3 Hgb (10.1-14.3) gm/dl RDW (13.2-15.2) % Lymph % (Auto) (13.4-35.0) % Lymph # (Auto) (1.2-5.4) K/mm3 Seg Neutrophils % (40.0-70.0) % Sodium 135 L D (137-145) mmol/L Chloride 95.8 L (98-107) mmol/L Carbon Dioxide 20 L (22-30) mmol/L BUN 84 H (7-17) mg/dL Creatinine 8.4 H (0.6-1.2) mg/dL Glucose 262 H (65-100) mg/dL POC Glucose 238 H (70-105) mg/dL Calcium 7.5 L (8.4-10.2) mg/dL Total Protein 6.1 L (6.3-8.2) g/dL Albumin 2.5 L (3.9-5) g/dL
--- NOTE | 2020-08-18 18:01 | Progress Note ---
Assessment and Plan - Patient Problems (1) Acute respiratory failure with hypoxia Current Visit: Yes Status: Acute Plan to address problem: Coronavirus PCR positive Patient has bilateral pulmonary opacities Question of volume overload present because of the high creatinine and possible CKD/end-stage renal disease On high flow nasal cannula oxygen (2) Person under investigation for severe acute respiratory syndrome coronavirus 2 (SARS-CoV-2) infection Current Visit: Yes Status: Acute Plan to address problem: Coronavirus PCR positive (3) Acute kidney injury superimposed on CKD Current Visit: Yes Status: Acute Plan to address problem: Patient has baseline creatinine was 1.7 which is worsened to more than 6 Possibly Covid related Patient on intermittent hemodialysis Nephrology follow-up appreciated (4) Bilateral pneumonia Current Visit: Yes Status: Acute Plan to address problem: In the meantime treated bilateral community-acquired pneumonia Patient initiated on IV Zithromax and IV Rocephin (5) Hypertension Current Visit: Yes Status: Chronic Qualifiers: Hypertension type: essential hypertension Qualified Code(s): I10 - Essent ial (primary) hypertension Plan to address problem: Continue antihypertensives and adjust medications (6) T2DM (type 2 diabetes mellitus) Current Visit: Yes Status: Chronic Qualifiers: 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 (9) DVT prophylaxis Current Visit: Yes Status: Acute Plan to address problem: On heparin and GI prophylaxis Subjective Date of service: 08/18/20 Principal diagnosis: Covid pneumonia, acute respiratory failure with hypoxia, ANGELIQUE on CKD Interval history: 64-year-old female with history of hypertension, diabetes, COPD and old CVA comes in for cough productive of yellow sputum and wheezing and headache and scratchy throat. Going on for 4 weeks since July 21. Symptoms have been progressive since July 21. Patient has took a course of Z-Bipin and steroids with no relief. Patient states that she requested a Covid test, insurance company and pressors positive after 3 days of testing today. Intermittent fever present. Exposure to coronavirus not known. Shortness of breath on exertion. 08/16/2020 Patient continues to be on high flow nasal cannula oxygen Patient to get Vas-Cath for intermittent hemodialysis 08/17/2020 Patient continues to be hypoxic Patient getting hemodialysis Patient on high flow nasal cannula oxygen 08/18/2020 Patient on high flow nasal cannula oxygen Patient getting intermittent hemodialysis Patient to be transferred to ICU because of the volume overload hemodialysis and high flow nasal cannula oxygen Objective - Constitutional Vitals: Vital Signs - 12hr 08/18/20 08/18/20 08/18/20 06:08 08:00 08:47 Temperature Pulse Rate Pulse Rate [ 106 H Anterior Bilateral Throughout] Respiratory Rate Respiratory 20 Rate [Anterior Bilateral Throughout] Blood Pressure O2 Sat by Pulse 93 96 Oximetry O2 Sat by Pulse Oximetry [ Anterior Bilateral Throughout] 08/18/20 08/18/20 08/18/20 11:00 11:03 11:15 Temperature 98.7 F 98.7 F Pulse Rate 97 H 105 H 104 H Pulse Rate [ Anterior Bilateral Throughout] Respiratory 24 24 Rate Respiratory Rate [Anterior Bilateral Throughout] Blood Pressure 110/58 112/67 118/56 O2 Sat by Pulse 92 Oximetry O2 Sat by Pulse 100 Oximetry [ Anterior Bilateral Throughout] 08/18/20 08/18/20 08/18/20 11:30 11:45 12:00 Temperature Pulse Rate 104 H 102 H 96 H Pulse Rate [ Anterior Bilateral Throughout] Respiratory Rate Respiratory Rate [Anterior Bilateral Throughout] Blood Pressure 107/57 105/54 78/40 O2 Sat by Pulse Oximetry O2 Sat by Pulse Oximetry [ Anterior Bilateral Throughout] 08/18/20 08/18/20 08/18/20 12:20 14:57 14:58 Temperature 99.6 F Pulse Rate 92 H Pulse Rate [ 95 H Anterior Bilateral Throughout] Respiratory 24 Rate Respiratory 19 Rate [Anterior Bilateral Throughout] Blood Pressure 111/55 O2 Sat by Pulse 94 Oximetry O2 Sat by Pulse 100 Oximetry [ Anterior Bilateral Throughout] 08/18/20 16:18 Temperature 98.8 F Pulse Rate 94 H Pulse Rate [ Anterior Bilateral Throughout] Respiratory 26 H Rate Respiratory Rate [Anterior Bilateral Throughout] Blood Pressure 101/61 O2 Sat by Pulse 93 Oximetry O2 Sat by Pulse Oximetry [ Anterior Bilateral Throughout] General appearance: Present: mild distress, well-nourished - EENT Eyes: PERRL, EOM intact ENT: hearing intact, clear oral mucosa Ears: bilateral: normal - Neck Neck: supple, normal ROM - Respiratory Respiratory effort: normal Respiratory: bilateral: CTA - Breasts Breasts: normal - Cardiovascular Heart rate: 78 Rhythm: regular Heart Sounds: Present: S1 & S2. Absent: gallop, rub Extremities: pulses intact, No edema, normal color, Full ROM - Gastrointestinal General gastrointestinal: Present: soft, non-tender, non-distended, normal bowel sounds - Genitourinary Female genitourinary: normal - Integumentary Integumentary: clear, warm, dry - Musculoskeletal Musculoskeletal: 1, strength equal bilaterally - Neurologic Neurologic: moves all extremities - Psychiatric Psychiatric: memory intact, appropriate mood/affect, intact judgment & insight - Labs CBC & Chem 7: 08/23/20 05:47 08/23/20 05:47 Labs: Abnormal lab results 08/17/20 08/18/20 08/18/20 Range/Units 21:39 08:00 08:36 RBC 3.64 L (3.65-5.03) M/mm3 Hgb 10.0 L (10.1-14.3) gm/dl RDW 15.8 H (13.2-15.2) % Lymph % (Auto) 5.9 L (13.4-35.0) % Lymph # (Auto) 0.5 L (1.2-5.4) K/mm3 Seg Neutrophils % 87.3 H (40.0-70.0) % Sodium (137-145) mmol/L Chloride (98-107) mmol/L Carbon Dioxide (22-30) mmol/L BUN (7-17) mg/dL Creatinine (0.6-1.2) mg/dL Glucose (65-100) mg/dL POC Glucose 206 H 229 H (70-105) mg/dL Calcium (8.4-10.2) mg/dL Total Protein (6.3-8.2) g/dL Albumin (3.9-5) g/dL 08/18/20 08/18/20 Range/Units 08:36 11:00 RBC (3.65-5.03) M/mm3 Hgb (10.1-14.3) gm/dl RDW (13.2-15.2) % Lymph % (Auto) (13.4-35.0) % Lymph # (Auto) (1.2-5.4) K/mm3 Seg Neutrophils % (40.0-70.0) % Sodium 135 L D (137-145) mmol/L Chloride 95.8 L (98-107) mmol/L Carbon Dioxide 20 L (22-30) mmol/L BUN 84 H (7-17) mg/dL Creatinine 8.4 H (0.6-1.2) mg/dL Glucose 262 H (65-100) mg/dL POC Glucose 238 H (70-105) mg/dL Calcium 7.5 L (8.4-10.2) mg/dL Total Protein 6.1 L (6.3-8.2) g/dL Albumin 2.5 L (3.9-5) g/dL
[2020-08-18 18:24] LABS: Bacteria,Urine 2+ /HPF (Negative); Bilirubin,Urine NEG (Negative); Blood,Urine NEG (Negative); Color,Urine Yellow (Yellow); Urobilinogen,Urine < 2.0 mg/dL (<2.0)
[2020-08-18 18:26] LABS: Protein,Urine >500 mg/dL (Negative)
[2020-08-18] MEDS: AZITHROMYCIN/NS 500 MG/250 ML 500 MG/250 ML BAG IV SCH (23:02)
[2020-08-19] MEDS: ACETAMINOPHEN 325 MG TAB PO PRN (01:17)
[2020-08-19] MEDS ORDERED: SODIUM CHLORIDE 0.9% 250ML 250 ML IV ONE (03:11)
[2020-08-19] MEDS: ALBUTEROL 2.5 MG/3 ML NEBU IH SCH ×4 (04:20→19:31)
[2020-08-19 05:26] LABS: Hemoglobin 9.5 gm/dl (10.1-14.3); Mean Corpuscular HGB Conc 32 % (30-34); Mean Corpuscular Volume 85 fl (79-97); Platelet Count 192 K/mm3 (140-440); Red Blood Count 3.53 M/mm3 (3.65-5.03); Red Cell Distribution Width 15.6 % (13.2-15.2)
[2020-08-19 05:59] LABS: Alanine Aminotransferase 13 units/L (7-56); Albumin 2.5 g/dL (3.9-5); Blood Urea Nitrogen 86 mg/dL (7-17); Calcium 7.5 mg/dL (8.4-10.2); Hemolysis Index 6
[2020-08-19 06:00] LABS: BUN/Creatinine Ratio 9
[2020-08-19 06:35] LABS: Anisocytosis 1+; Band Neutrophils # (Manual) 0.2 K/mm3; Poikilocytosis 1+; Total Cells Counted 100
[2020-08-19 06:36] LABS: Burr Cells 1+; Ovalocytes Few; Platelet Estimate Consistent w Auto; Tear Drop Cells Rare
[2020-08-19] MEDS: INSULIN LISPRO 100 UNIT/ML SUB-Q SCH ×5 (06:48→23:32)
--- NOTE | 2020-08-19 08:34 | Event Note ---
#Upon patient request I did a long discussion with patient's sister over the phone, yesterday and updated her that patient is very critically ill with respiratory failure renal failure, with underlying complex health issues, inability to tolerate dialysis today with a Covid 19 infection and pneumonia, She does understand that patient is critically ill and her prognosis is very poor at this time, continue with supportive care I also reviewed her record from Dr. Rivers's office which shows that her creatinine has been under 2 up until June 2020. Patient is considered acute on chronic renal failure not end-stage renal disease She does have guarded prognosis however at that time as far as renal function and recovery is concerned, avoid any form of nephrotoxic medication
--- NOTE | 2020-08-19 09:03 | Progress Note ---
Subjective Interval history: Patient was evaluated today from renal standpoint but was not physically examined [id number] due to Covid 19 status and also to reduce the risk of transmission and cross infection with ongoing pandemic she was seen in the ICU setting Events of 24 hours were noted, interdisciplinary notes were reviewed, Labs, imaging studies as well as physical examination portions were reviewed from the patient's chart Past medical history: Reviewed Family history: Reviewed Social history: Reviewed Allergies: Reviewed Physical examination: Vitals: Reviewed Reviewed from service Labs and x-rays: Reviewed from today Assessment and plan #Acute kidney injury with underlying chronic kidney disease baseline creatinine has been noted to be around the less than 2 as of June 2020 reviewed record from primary care physician's office, patient tolerated hemodialysis treatment very poorly yesterday her electrolytes seem to be stable today would like to monitor she appears to be hemodynamically stable there is no electrolyte disturbance today,We will need to reevaluate her tomorrow morning and it is quite likely that she may require renal replacement therapy tomorrow #Likely etiology of her renal failure appear to be resulting from Covid, mostly as well as her other health condition, underlying chronic kidney disease Renal ultrasonogram currently pending #Relative hypotension, relatively better today blood pressure 104/53 has been taken off angiotensin receptor vamshi #Proteinuria: Ratio is 196/248 #Has to rule out for any possibility of urinary tract infection, has had less than 200 cc urine in the bladder yesterday will need to be bladder scanned on a daily basis Will monitor for any meaningful recovery of renal function #Covid 19: with multiorgan failure-like picture #Prognosis remains guarded / possibly poor sister has been educated about this critical care time spent approximately 34 minutes if there are any questions in regard to this patient's renal care please feel free to reach out at [phone] Continue with supportive care We'll continue to follow and make recommendation for renal standpoint Objective - Vital Signs Vital signs: Vital Signs - 12hr 08/18/20 08/18/20 08/18/20 21:10 21:20 21:30 Temperature Pulse Rate 92 H 93 H 95 H Pulse Rate [ From Monitor] Respiratory 26 H 23 32 H Rate Blood Pressure 116/60 109/61 117/66 O2 Sat by Pulse 95 94 95 Oximetry 08/18/20 08/18/20 08/18/20 21:40 21:50 22:00 Temperature Pulse Rate 94 H 92 H 92 H Pulse Rate [ From Monitor] Respiratory 22 22 21 Rate Blood Pressure 117/66 120/50 102/65 O2 Sat by Pulse 94 92 91 Oximetry 08/18/20 08/18/20 08/18/20 22:10 22:15 22:20 Temperature Pulse Rate 92 H 86 Pulse Rate [ 84 From Monitor] Respiratory 49 H 23 22 Rate Blood Pressure 102/65 101/62 O2 Sat by Pulse 93 95 94 Oximetry 08/18/20 08/18/20 08/18/20 22:30 22:40 22:50 Temperature Pulse Rate 84 83 85 Pulse Rate [ From Monitor] Respiratory 20 22 26 H Rate Blood Pressure 104/59 104/59 98/58 O2 Sat by Pulse 92 91 95 Oximetry 08/18/20 08/18/20 08/18/20 23:00 23:10 23:20 Temperature Pulse Rate 87 85 83 Pulse Rate [ From Monitor] Respiratory 20 18 22 Rate Blood Pressure 99/66 99/66 113/65 O2 Sat by Pulse 93 90 94 Oximetry 08/18/20 08/18/20 08/18/20 23:30 23:40 23:50 Temperature Pulse Rate 83 85 85 Pulse Rate [ From Monitor] Respiratory 16 27 H 23 Rate Blood Pressure 121/64 121/64 100/60 O2 Sat by Pulse 97 95 97 Oximetry 08/19/20 08/19/20 08/19/20 00:00 00:10 00:20 Temperature 98.9 F Pulse Rate 84 84 99 H Pulse Rate [ 85 From Monitor] Respiratory 49 H 26 H 16 Rate Blood Pressure 100/58 100/58 109/58 O2 Sat by Pulse 94 95 92 Oximetry 08/19/20 08/19/20 08/19/20 00:30 00:40 00:50 Temperature Pulse Rate 89 87 93 H Pulse Rate [ From Monitor] Respiratory 24 21 24 Rate Blood Pressure 100/49 100/49 92/53 O2 Sat by Pulse 94 92 91 Oximetry 08/19/20 08/19/20 08/19/20 01:00 01:10 01:17 Temperature Pulse Rate 83 88 Pulse Rate [ From Monitor] Respiratory 25 H 25 H 15 Rate Blood Pressure 97/50 97/50 O2 Sat by Pulse 95 93 Oximetry 08/19/20 08/19/20 08/19/20 01:20 01:30 01:40 Temperature Pulse Rate 89 83 85 Pulse Rate [ From Monitor] Respiratory 22 21 24 Rate Blood Pressure 101/55 101/61 101/61 O2 Sat by Pulse 96 94 Oximetry 08/19/20 08/19/20 08/19/20 01:50 02:00 02:10 Temperature Pulse Rate 86 85 89 Pulse Rate [ From Monitor] Respiratory 24 24 19 Rate Blood Pressure 101/55 109/50 109/50 O2 Sat by Pulse 95 98 94 Oximetry 08/19/20 08/19/20 08/19/20 02:20 02:30 02:40 Temperature Pulse Rate 85 81 79 Pulse Rate [ From Monitor] Respiratory 24 25 H 24 Rate Blood Pressure 96/51 93/50 93/50 O2 Sat by Pulse 97 95 94 Oximetry 08/19/20 08/19/20 08/19/20 02:50 03:00 03:10 Temperature Pulse Rate 78 76 81 Pulse Rate [ From Monitor] Respiratory 22 25 H 21 Rate Blood Pressure 84/47 83/47 83/47 O2 Sat by Pulse 94 95 95 Oximetry 08/19/20 08/19/20 08/19/20 03:20 03:30 03:40 Temperature Pulse Rate 80 79 77 Pulse Rate [ From Monitor] Respiratory 24 24 21 Rate Blood Pressure 101/55 97/51 97/51 O2 Sat by Pulse 95 96 98 Oximetry 08/19/20 08/19/20 08/19/20 03:42 03:50 04:00 Temperature 97.9 F Pulse Rate 80 84 Pulse Rate [ 75 From Monitor] Respiratory 22 21 Rate Blood Pressure 105/54 O2 Sat by Pulse 95 93 Oximetry 08/19/20 08/19/20 08/19/20 04:11 04:21 04:30 Temperature Pulse Rate 79 75 72 Pulse Rate [ From Monitor] Respiratory 23 19 22 Rate Blood Pressure 86/51 97/51 103/54 O2 Sat by Pulse 97 98 96 Oximetry 08/19/20 08/19/20 08/19/20 04:41 04:51 05:00 Temperature Pulse Rate 75 74 73 Pulse Rate [ From Monitor] Respiratory 24 24 27 H Rate Blood Pressure 103/54 90/51 100/55 O2 Sat by Pulse 95 94 95 Oximetry 08/19/20 08/19/20 08/19/20 05:11 05:21 05:30 Temperature Pulse Rate 78 73 75 Pulse Rate [ From Monitor] Respiratory 24 36 H 22 Rate Blood Pressure 100/55 94/56 102/60 O2 Sat by Pulse 99 94 98 Oximetry 08/19/20 08/19/20 08/19/20 05:41 05:51 06:00 Temperature Pulse Rate 77 84 79 Pulse Rate [ From Monitor] Respiratory 46 H 20 42 H Rate Blood Pressure 100/55 106/56 104/53 O2 Sat by Pulse 97 94 97 Oximetry 08/19/20 07:54 Temperature 97.7 F Pulse Rate Pulse Rate [ From Monitor] Respiratory Rate Blood Pressure O2 Sat by Pulse Oximetry - Lab 08/19/20 04:23 08/19/20 04:23 Most recent lab results Calcium 7.5 mg/dL (8.4-10.2) L 08/19/20 04:23 Phosphorus 5.90 mg/dL (2.5-4.5) H 08/17/20 09:35 Urine Creatinine 248.0 mg/dL (0.1-20.0) H 08/17/20 17:45 Urine Total Protein 196 mg/dL (5-11.8) H 08/17/20 17:45 Medications & Allergies - Medications Allergies/Adverse Reactions: Allergies gabapentin [From Neurontin] Allergy (Verified 08/15/20 17:25) Unknown rosuvastatin calcium [From Crestor] Allergy (Verified 08/15/20 17:25) Rash fluticasone propionate [From Advair Diskus] Adverse Reaction (Verified 08/15/20 17:25) Headache salmeterol xinafoate [From Advair Diskus] Adverse Reaction (Verified 08/15/20 17:25) Headache IV DYE Adverse Reaction (Uncoded 08/15/20 17:25) Itching Home Medications: Home Medications Medication Instructions Recorded Confirmed Last Taken Type Colchicine [Colcrys] 0.6 mg PO DAILY 08/15/20 08/15/20 Unknown History Cyanocobalamin (Vitamin B-12) 1,000 mcg IJ QMONTH 08/15/20 08/15/20 Unknown History [Physicians Ez Use B-12] Ergocalciferol [Vitamin D2] 1 cap PO QWEEK 08/15/20 08/15/20 Unknown History Ezetimibe/Simvastatin 1 each PO DAILY 08/15/20 08/15/20 Unknown History [Ezetimibe-Simvastatin 10-20 mg] Famotidine [Pepcid] 40 mg PO DAILY 08/15/20 08/15/20 Unknown History Furosemide [Lasix] 40 mg PO BID 08/15/20 08/15/20 Unknown History HYDROcodone/APAP 5-325 [[place] 1 each PO Q6HR PRN 08/15/20 08/15/20 Unknown History 5/325] Linagliptin [Tradjenta] 5 mg PO QDAY 08/15/20 08/15/20 Unknown History Omeprazole 40 mg PO DAILY 08/15/20 08/15/20 Unknown History Potassium Chloride [K-Dur] 20 meq PO BID 08/15/20 08/15/20 Unknown History Valsartan [Diovan] 160 mg PO QDAY 08/15/20 08/15/20 Unknown History allopurinoL [Zyloprim] 200 mg PO DAILY 08/15/20 08/15/20 Unknown History carvediloL [Coreg] 3.125 mg PO BID 08/15/20 08/15/20 Unknown History Albuterol Sulfate [Proair 90 mcg INHALATION Q4H PRN 08/17/20 08/17/20 Unknown History Digihaler] Spiriva 2.5 mcg INHALATION DAILY 08/17/20 08/17/20 Unknown History Symbicort 160-4.5 Mcg Inhaler 160 mcg INHALATION BID 08/17/20 08/17/20 Unknown History Active Medications: Generic Name Dose Route Start Last Admin Trade Name Freq PRN Reason Stop Dose Admin Acetaminophen 650 mg 08/15/20 22:16 08/19/20 01:17 Acetaminophen 325 Mg Tab PO 650 mg Q4H PRN Administration Pain MILD(1-3)/Fever >100.5/TELLO Hydrocodone Bitart/Acetaminophen 1 each 08/15/20 22:06 Hydrocodone/Acetaminophen 5-325 Mg Tab PO Q6HR PRN Pain, Moderate (4-6) Albuterol 2.5 mg 08/17/20 19:26 08/19/20 04:20 Albuterol 2.5 Mg/3 Ml Nebu IH Not Given Q6HRT SYLVAIN Ascorbic Acid 1,000 mg 08/15/20 23:00 08/18/20 23:01 Ascorbic Acid 500 Mg Tab PO 1,000 mg BID SYLVAIN Administration Calcitriol 0.25 mcg 08/18/20 10:00 08/18/20 09:15 Calcitriol 0.25 Mcg Cap PO 0.25 mcg QDAY SYLVAIN Administration Colchicine 0.6 mg 08/16/20 10:00 08/18/20 09:16 Colchicine 0.6 Mg Tab PO 0.6 mg QOD SYLVAIN Administration Ezetimibe 10 mg 08/16/20 10:00 08/18/20 09:15 Ezetimibe 10 Mg Tab PO 10 mg DAILY SYLVAIN Administration Hydromorphone HCl 0.5 mg 08/15/20 22:16 Hydromorphone 1 Mg/1 Ml Inj IV Q3H PRN Pain , Severe (7-10) Azithromycin 500 mg in 250 mls @ 250 mls/hr 08/15/20 23:00 08/18/20 23:02 Zithromax/Ns IV 08/19/20 23:59 250 mls/hr Q24H SYLVAIN Administration Ceftriaxone Sodium 2 gm in 100 mls @ 200 mls/hr 08/16/20 10:00 08/18/20 09:15 Rocephin/Ns 2 Gm/100 Ml IV 08/19/20 10:29 200 mls/hr Q24HR SYLVAIN Administration Protocol Sodium Chloride 100 mls @ 999 mls/hr 08/18/20 10:07 Nacl 0.9% IV SARAI PRN Hypotension Dexamethasone 20 mg/ Sodium 55 mls @ 100 mls/hr 08/18/20 15:00 08/18/20 23:02 Chloride IV 08/23/20 14:59 100 mls/hr Q12HR SYLVAIN Administration Insulin Human Lispro 0 unit 08/18/20 13:23 08/19/20 06:48 Insulin Lispro 100 Unit/Ml SUB-Q 3 unit ACHS SYLVAIN Administration Protocol Linagliptin 5 mg 08/16/20 10:00 08/18/20 09:16 Linagliptin 5 Mg Tab PO 5 mg QDAY SYLVAIN Administration Metoclopramide HCl 5 mg 08/15/20 22:37 Metoclopramide 10 Mg/2 Ml Inj IV Q6H PRN Nausea And Vomiting Multivit/Ca Carb/B Cmplx/FA/Prenat 1 cap 08/18/20 10:00 08/18/20 09:17 Folic Acid/Vit B Comp W-C 1 Mg (Renal Caps) PO 1 cap DAILY SYLVAIN Administration Ondansetron HCl 4 mg 08/15/20 22:16 Ondansetron 4 Mg/2 Ml Inj IV Q8H PRN Nausea And Vomiting Oxycodone/Acetaminophen 1 tab 08/15/20 22:16 08/18/20 09:58 Oxycodone /Acetaminophen 5-325mg Tab PO 1 tab Q6H PRN Administration Pain, Moderate (4-6) Pantoprazole Sodium 40 mg 08/16/20 10:00 08/18/20 09:16 Pantoprazole 40 Mg Tab PO 40 mg DAILY SYLVAIN Administration Pravastatin Sodium 40 mg 08/16/20 10:00 08/18/20 09:16 Pravastatin 40 Mg Tab PO 40 mg DAILY SYLVAIN Administration Pseudoephedrine/Acetam/Chlorphenir 10 ml 08/18/20 10:30 08/18/20 17:52 Guaifenesin/Codeine 100-10mg Oral Liqd 5 Ml PO 10 ml Q4H PRN Administration Cough Sodium Chloride 10 ml 08/15/20 23:00 08/18/20 23:02 Sodium Chloride 0.9% 10 Ml Flush Syringe IV 10 ml BID SYLVAIN Administration Sodium Chloride 10 ml 08/15/20 22:16 Sodium Chloride 0.9% 10 Ml Flush Syringe IV PRN PRN LINE FLUSH Zinc Sulfate 220 mg 08/15/20 23:00 08/18/20 23:01 Zinc Sulfate 220 Mg Cap PO 220 mg BID SYLVAIN Administration
[2020-08-19] MEDS: dexAMETHasone 20 MG in SODIUM CHLORIDE 0.9% 50 ML IV SCH ×2 (09:21→22:33)
[2020-08-19] MEDS: ZINC SULFATE 220 MG CAP PO SCH ×2 (09:22→22:33)
[2020-08-19] MEDS: PRAVASTATIN 40 MG TAB PO SCH (09:22)
[2020-08-19] MEDS: PANTOPRAZOLE 40 MG TAB PO SCH (09:22)
[2020-08-19] MEDS: ASCORBIC ACID 500 MG TAB PO SCH ×2 (09:22→22:33)
[2020-08-19] MEDS: cefTRIAXone/NS 2 GM/100 ML 2 GM/100 ML BAG IV SCH (09:23)
[2020-08-19] MEDS ORDERED: NORepinephrine/NS 4 MG-250 ML 4 MG/250 ML BAG IV SCH (10:00)
[2020-08-19] MEDS ORDERED: SODIUM BICARB 8.4% 50 MEQ/50 ML SYRINGE IV ONE ×2 (10:00→10:30)
--- NOTE | 2020-08-19 10:00 | Progress Note ---
Assessment and Plan 64 y/o female with acute respiratory failure thought secondary to COVID, found to be positive 08/19/20: Ordered PICC line for use during HD if patient requires vasopressors. Most likely increase in oxygen secondary to volume from lack of appropriate HD secondary to hypotension. Will give a couple amps of bicarb to see if this will help with blood pressure and can wills off pressor use. Continue steroids. Agree with ID on increasing the dose. Guarded prognosis 08/18/20: Prone as tolerated during day and sleep prone at night. Continue supplemental O2. Steroids for 10 days. Hold on nebs. Needs RT consult for documentation of oxygen therapy and requirements. 08/17/20: Found to be positive. Same recs as yesterday. Likely not a candidate for remdesivir given renal function. No nebulizer therapy, only inhaler therapy if and when needed. Continue supplemental O2 and proning is mcknight. Guarded prognosis given renal failure. 1. Follow up covid testing 2. Ok with current steroids 3. If patient brought in home inhalers, please allow pharmacy to verify and use them, no neb treatments 4. Prone during the day and and sleep prone at night as tolerated. Guarded prognosis. Subjective Date of service: 08/19/20 Interval history: Transferred from floor post attempted HD yesterday. Had hypotension during HD so had to be aborted. Awake and alert. Objective Vital Signs - 12hr 08/18/20 08/18/20 08/18/20 21:50 22:00 22:10 Temperature Pulse Rate 92 H 92 H 92 H Pulse Rate [ From Monitor] Respiratory 22 21 49 H Rate Blood Pressure 120/50 102/65 102/65 O2 Sat by Pulse 92 91 93 Oximetry 08/18/20 08/18/20 08/18/20 22:15 22:20 22:30 Temperature Pulse Rate 86 84 Pulse Rate [ 84 From Monitor] Respiratory 23 22 20 Rate Blood Pressure 101/62 104/59 O2 Sat by Pulse 95 94 92 Oximetry 08/18/20 08/18/20 08/18/20 22:40 22:50 23:00 Temperature Pulse Rate 83 85 87 Pulse Rate [ From Monitor] Respiratory 22 26 H 20 Rate Blood Pressure 104/59 98/58 99/66 O2 Sat by Pulse 91 95 93 Oximetry 08/18/20 08/18/20 08/18/20 23:10 23:20 23:30 Temperature Pulse Rate 85 83 83 Pulse Rate [ From Monitor] Respiratory 18 22 16 Rate Blood Pressure 99/66 113/65 121/64 O2 Sat by Pulse 90 94 97 Oximetry 08/18/20 08/18/20 08/19/20 23:40 23:50 00:00 Temperature 98.9 F Pulse Rate 85 85 84 Pulse Rate [ 85 From Monitor] Respiratory 27 H 23 49 H Rate Blood Pressure 121/64 100/60 100/58 O2 Sat by Pulse 95 97 94 Oximetry 08/19/20 08/19/20 08/19/20 00:10 00:20 00:30 Temperature Pulse Rate 84 99 H 89 Pulse Rate [ From Monitor] Respiratory 26 H 16 24 Rate Blood Pressure 100/58 109/58 100/49 O2 Sat by Pulse 95 92 94 Oximetry 08/19/20 08/19/20 08/19/20 00:40 00:50 01:00 Temperature Pulse Rate 87 93 H 83 Pulse Rate [ From Monitor] Respiratory 21 24 25 H Rate Blood Pressure 100/49 92/53 97/50 O2 Sat by Pulse 92 91 95 Oximetry 08/19/20 08/19/20 08/19/20 01:10 01:17 01:20 Temperature Pulse Rate 88 89 Pulse Rate [ From Monitor] Respiratory 25 H 15 22 Rate Blood Pressure 97/50 101/55 O2 Sat by Pulse 93 Oximetry 08/19/20 08/19/20 08/19/20 01:30 01:40 01:50 Temperature Pulse Rate 83 85 86 Pulse Rate [ From Monitor] Respiratory 21 24 24 Rate Blood Pressure 101/61 101/61 101/55 O2 Sat by Pulse 96 94 95 Oximetry 08/19/20 08/19/20 08/19/20 02:00 02:10 02:20 Temperature Pulse Rate 85 89 85 Pulse Rate [ From Monitor] Respiratory 24 19 24 Rate Blood Pressure 109/50 109/50 96/51 O2 Sat by Pulse 98 94 97 Oximetry 08/19/20 08/19/20 08/19/20 02:30 02:40 02:50 Temperature Pulse Rate 81 79 78 Pulse Rate [ From Monitor] Respiratory 25 H 24 22 Rate Blood Pressure 93/50 93/50 84/47 O2 Sat by Pulse 95 94 94 Oximetry 08/19/20 08/19/20 08/19/20 03:00 03:10 03:20 Temperature Pulse Rate 76 81 80 Pulse Rate [ From Monitor] Respiratory 25 H 21 24 Rate Blood Pressure 83/47 83/47 101/55 O2 Sat by Pulse 95 95 95 Oximetry 08/19/20 08/19/20 08/19/20 03:30 03:40 03:42 Temperature 97.9 F Pulse Rate 79 77 Pulse Rate [ From Monitor] Respiratory 24 21 Rate Blood Pressure 97/51 97/51 O2 Sat by Pulse 96 98 Oximetry 08/19/20 08/19/20 08/19/20 03:50 04:00 04:11 Temperature Pulse Rate 80 84 79 Pulse Rate [ 75 From Monitor] Respiratory 22 21 23 Rate Blood Pressure 105/54 86/51 O2 Sat by Pulse 95 93 97 Oximetry 08/19/20 08/19/20 08/19/20 04:21 04:30 04:41 Temperature Pulse Rate 75 72 75 Pulse Rate [ From Monitor] Respiratory 19 22 24 Rate Blood Pressure 97/51 103/54 103/54 O2 Sat by Pulse 98 96 95 Oximetry 08/19/20 08/19/20 08/19/20 04:51 05:00 05:11 Temperature Pulse Rate 74 73 78 Pulse Rate [ From Monitor] Respiratory 24 27 H 24 Rate Blood Pressure 90/51 100/55 100/55 O2 Sat by Pulse 94 95 99 Oximetry 08/19/20 08/19/20 08/19/20 05:21 05:30 05:41 Temperature Pulse Rate 73 75 77 Pulse Rate [ From Monitor] Respiratory 36 H 22 46 H Rate Blood Pressure 94/56 102/60 100/55 O2 Sat by Pulse 94 98 97 Oximetry 08/19/20 08/19/20 08/19/20 05:51 06:00 07:54 Temperature 97.7 F Pulse Rate 84 79 Pulse Rate [ From Monitor] Respiratory 20 42 H Rate Blood Pressure 106/56 104/53 O2 Sat by Pulse 94 97 Oximetry Constitutional: no acute distress, alert, other (obese) Eyes: non-icteric ENT: oropharynx moist Neck: supple Effort: normal Ascultation: Bilateral: diminished breath sounds CBC and BMP: 08/19/20 04:23 08/19/20 04:23 ABG, PT/INR, D-dimer: PT/INR, D-dimer D-Dimer 1750.12 ng/mlDDU (0-234) H 08/15/20 17:01 Abnormal lab findings: Abnormal Labs 08/15/20 08/15/20 08/15/20 17:01 17:01 17:01 RBC Hgb Hct MCH RDW 15.8 H Lymph % (Auto) 7.4 L Lymph # (Auto) 0.7 L Seg Neutrophils % 85.1 H Seg Neuts % (Manual) Lymphocytes % (Manual) Seg Neutrophils # 7.9 H Lymphocytes # (Manual) D-Dimer 1750.12 H Sodium Potassium 5.1 H Chloride 97.1 L Carbon Dioxide BUN 67 H Creatinine 4.8 H Glucose 101 H POC Glucose Hemoglobin A1c Calcium Phosphorus Ferritin AST 53 H Lactate Dehydrogenase C-Reactive Protein Total Protein Albumin 3.4 L PTH Intact Ur Specific [place] Urine WBC (Auto) U Epithel Cells (Auto) Urine Creatinine Urine Total Protein Coronavirus (PCR) 08/15/20 08/15/20 08/15/20 17:01 17:01 17:01 RBC Hgb Hct MCH RDW Lymph % (Auto) Lymph # (Auto) Seg Neutrophils % Seg Neuts % (Manual) Lymphocytes % (Manual) Seg Neutrophils # Lymphocytes # (Manual) D-Dimer Sodium Potassium Chloride Carbon Dioxide BUN Creatinine Glucose 101 H POC Glucose Hemoglobin A1c Calcium Phosphorus Ferritin 667.2 H AST Lactate Dehydrogenase 606 H 567 H C-Reactive Protein 4.60 H 6.30 H Total Protein Albumin PTH Intact Ur Specific [place] Urine WBC (Auto) U Epithel Cells (Auto) Urine Creatinine Urine Total Protein Coronavirus (PCR) 08/16/20 08/16/20 08/16/20 04:32 04:32 04:32 RBC Hgb Hct MCH 27 L RDW 15.9 H Lymph % (Auto) 12.6 L Lymph # (Auto) 0.8 L Seg Neutrophils % 83.7 H Seg Neuts % (Manual) Lymphocytes % (Manual) Seg Neutrophils # Lymphocytes # (Manual) D-Dimer Sodium 136 L Potassium 6.7 H* D Chloride Carbon Dioxide BUN 78 H Creatinine 6.2 H Glucose 223 H POC Glucose Hemoglobin A1c 7.6 H Calcium 7.8 L Phosphorus Ferritin AST 47 H Lactate Dehydrogenase C-Reactive Protein Total Protein 5.8 L D Albumin 3.1 L PTH Intact Ur Specific [place] Urine WBC (Auto) U Epithel Cells (Auto) Urine Creatinine Urine Total Protein Coronavirus (PCR) 08/16/20 08/16/20 08/16/20 17:01 17:05 21:41 RBC Hgb Hct MCH RDW Lymph % (Auto) Lymph # (Auto) Seg Neutrophils % Seg Neuts % (Manual) Lymphocytes % (Manual) Seg Neutrophils # Lymphocytes # (Manual) D-Dimer Sodium Potassium Chloride Carbon Dioxide BUN 93 H Creatinine 7.7 H Glucose 228 H POC Glucose 150 H 204 H Hemoglobin A1c Calcium Phosphorus Ferritin AST Lactate Dehydrogenase C-Reactive Protein Total Protein Albumin PTH Intact Ur Specific [place] Urine WBC (Auto) U Epithel Cells (Auto) Urine Creatinine Urine Total Protein Coronavirus (PCR) 08/16/20 08/17/20 08/17/20 Unknown 07:31 07:31 RBC Hgb Hct MCH 27 L RDW 16.0 H Lymph % (Auto) 4.2 L Lymph # (Auto) 0.4 L Seg Neutrophils % 90.0 H Seg Neuts % (Manual) Lymphocytes % (Manual) Seg Neutrophils # 8.8 H Lymphocytes # (Manual) D-Dimer Sodium Potassium 5.8 H D Chloride Carbon Dioxide 20 L BUN 103 H Creatinine 9.0 H Glucose 219 H POC Glucose Hemoglobin A1c Calcium 7.9 L Phosphorus Ferritin AST Lactate Dehydrogenase C-Reactive Protein Total Protein Albumin PTH Intact Ur Specific [place] Urine WBC (Auto) U Epithel Cells (Auto) Urine Creatinine Urine Total Protein Coronavirus (PCR) Positive A 08/17/20 08/17/20 08/17/20 07:44 09:35 09:35 RBC Hgb Hct MCH RDW Lymph % (Auto) Lymph # (Auto) Seg Neutrophils % Seg Neuts % (Manual) Lymphocytes % (Manual) Seg Neutrophils # Lymphocytes # (Manual) D-Dimer Sodium Potassium Chloride Carbon Dioxide BUN Creatinine Glucose POC Glucose 188 H Hemoglobin A1c Calcium Phosphorus 5.90 H Ferritin AST Lactate Dehydrogenase C-Reactive Protein Total Protein Albumin PTH Intact 452.6 H Ur Specific [place] Urine WBC (Auto) U Epithel Cells (Auto) Urine Creatinine Urine Total Protein Coronavirus (PCR) 08/17/20 08/17/20 08/17/20 11:23 16:38 17:45 RBC Hgb Hct MCH RDW Lymph % (Auto) Lymph # (Auto) Seg Neutrophils % Seg Neuts % (Manual) Lymphocytes % (Manual) Seg Neutrophils # Lymphocytes # (Manual) D-Dimer Sodium Potassium Chloride Carbon Dioxide BUN Creatinine Glucose POC Glucose 205 H 212 H Hemoglobin A1c Calcium Phosphorus Ferritin AST Lactate Dehydrogenase C-Reactive Protein Total Protein Albumin PTH Intact Ur Specific [place] 1.039 H Urine WBC (Auto) 32.0 H U Epithel Cells (Auto) 44.0 H Urine Creatinine Urine Total Protein Coronavirus (PCR) 08/17/20 08/17/20 08/18/20 17:45 21:39 08:00 RBC Hgb Hct MCH RDW Lymph % (Auto) Lymph # (Auto) Seg Neutrophils % Seg Neuts % (Manual) Lymphocytes % (Manual) Seg Neutrophils # Lymphocytes # (Manual) D-Dimer Sodium Potassium Chloride Carbon Dioxide BUN Creatinine Glucose POC Glucose 206 H 229 H Hemoglobin A1c Calcium Phosphorus Ferritin AST Lactate Dehydrogenase C-Reactive Protein Total Protein Albumin PTH Intact Ur Specific [place] Urine WBC (Auto) U Epithel Cells (Auto) Urine Creatinine 248.0 H Urine Total Protein 196 H Coronavirus (PCR) 08/18/20 08/18/20 08/18/20 08:36 08:36 11:00 RBC 3.64 L Hgb 10.0 L Hct MCH RDW 15.8 H Lymph % (Auto) 5.9 L Lymph # (Auto) 0.5 L Seg Neutrophils % 87.3 H Seg Neuts % (Manual) Lymphocytes % (Manual) Seg Neutrophils # Lymphocytes # (Manual) D-Dimer Sodium 135 L D Potassium Chloride 95.8 L Carbon Dioxide 20 L BUN 84 H Creatinine 8.4 H Glucose 262 H POC Glucose 238 H Hemoglobin A1c Calcium 7.5 L Phosphorus Ferritin AST Lactate Dehydrogenase C-Reactive Protein Total Protein 6.1 L Albumin 2.5 L PTH Intact Ur Specific [place] Urine WBC (Auto) U Epithel Cells (Auto) Urine Creatinine Urine Total Protein Coronavirus (PCR) 08/18/20 08/18/20 08/19/20 16:14 21:52 04:23 RBC 3.53 L Hgb 9.5 L Hct 30.0 L MCH 27 L RDW 15.6 H Lymph % (Auto) Lymph # (Auto) Seg Neutrophils % Seg Neuts % (Manual) 84.0 H Lymphocytes % (Manual) 9.0 L Seg Neutrophils # Lymphocytes # (Manual) 0.5 L D-Dimer Sodium Potassium Chloride Carbon Dioxide BUN Creatinine Glucose POC Glucose 248 H 303 H Hemoglobin A1c Calcium Phosphorus Ferritin AST Lactate Dehydrogenase C-Reactive Protein Total Protein Albumin PTH Intact Ur Specific [place] Urine WBC (Auto) U Epithel Cells (Auto) Urine Creatinine Urine Total Protein Coronavirus (PCR) 08/19/20 04:23 RBC Hgb Hct MCH RDW Lymph % (Auto) Lymph # (Auto) Seg Neutrophils % Seg Neuts % (Manual) Lymphocytes % (Manual) Seg Neutrophils # Lymphocytes # (Manual) D-Dimer Sodium Potassium Chloride 97.2 L Carbon Dioxide BUN 86 H Creatinine 9.2 H Glucose 271 H POC Glucose Hemoglobin A1c Calcium 7.5 L Phosphorus Ferritin AST Lactate Dehydrogenase C-Reactive Protein Total Protein 5.8 L Albumin 2.5 L PTH Intact Ur Specific [place] Urine WBC (Auto) U Epithel Cells (Auto) Urine Creatinine Urine Total Protein Coronavirus (PCR)
--- NOTE | 2020-08-19 10:45 | Progress Note ---
Assessment and Plan Cultures: SARS CoV2 PCR: positive 08/15/2020 blood culture: No growth A/P: 64-year-old female with hypertension, diabetes, COPD, prior CVA, CKD was admitted to the hospital with cough and shortness of breath along with wheezing and headache going on for almost a month: #Bilateral pneumonia: secondary to COVID-19. Test was positive as outpatient as well. Symptomatic for a month. #Acute hypoxic respiratory failure: on HFNC. #ANGELIQUE on CKD: On intermittent HD per nephrology. #Mild transaminitis: Probably from COVID-19. Hepatitis panel negative Recs: -continue steroids, higher dose x 5 days and then wean back down. d/w Dr. Burnett -complete Ceftriaxone, Azithromycin after today's doses -Given prolonged symptoms and renal failure, unlikely to benefit from Remdesivir -prophylactic anticoagulation based on d-dimer per hospital protocol -recheck ferritin, LDH, d-dimer, CRP, patient may benefit from tocilizumab but it is currently not on formulary d/w pharmacy d/w Dr. Hortencia Suarez MD, FACP [facility] ([facility] O: [phone] F: [phone] Subjective Date of service: 08/19/20 Interval history: No fever. Remains on HFNC. Objective - Exam Narrative Exam: Physical Exam (reviewed in chart to minimize risk of transmission) Constitutional: deferred Head, Ears, Nose: deferred Eyes: deferred Neck: deferred Oral: deferred Cardiovascular: deferred Respiratory: deferred GI: deferred Musculoskeletal: deferred Skin: deferred Hem/Lymphatic: deferred Psych: deferred Neurological: deferred - Constitutional Vitals: Vital Signs Temp Pulse Resp BP Pulse Ox 97.7 F 81 20 104/53 93 08/19/20 07:54 08/19/20 10:04 08/19/20 10:04 08/19/20 06:00 08/19/20 10:20 Temperature -Last 24 Hours Temperature 97.7 F Temperature 97.9 F Temperature 98.9 F Temperature 98.9 F Temperature 98.8 F Temperature 99.6 F Temperature 98.7 F Temperature 98.7 F - Labs CBC & Chem 7: 08/19/20 04:23 08/19/20 04:23 Labs: Abnormal lab results 08/17/20 08/17/20 08/18/20 Range/Units 17:45 17:45 11:00 RBC (3.65-5.03) M/mm3 Hgb (10.1-14.3) gm/dl Hct (30.3-42.9) % MCH (28-32) pg RDW (13.2-15.2) % Seg Neuts % (Manual) (40.0-70.0) % Lymphocytes % (Manual) (13.4-35.0) % Lymphocytes # (Manual) (1.2-5.4) K/mm3 Chloride (98-107) mmol/L BUN (7-17) mg/dL Creatinine (0.6-1.2) mg/dL Glucose (65-100) mg/dL POC Glucose 238 H (70-105) mg/dL Calcium (8.4-10.2) mg/dL Total Protein (6.3-8.2) g/dL Albumin (3.9-5) g/dL Ur Specific [place] 1.039 H (1.003-1.030) Urine WBC (Auto) 32.0 H (0.0-6.0) /HPF U Epithel Cells (Auto) 44.0 H (0-13.0) /HPF Urine Creatinine 248.0 H (0.1-20.0) mg/dL Urine Total Protein 196 H (5-11.8) mg/dL 08/18/20 08/18/20 08/19/20 Range/Units 16:14 21:52 04:23 RBC 3.53 L (3.65-5.03) M/mm3 Hgb 9.5 L (10.1-14.3) gm/dl Hct 30.0 L (30.3-42.9) % MCH 27 L (28-32) pg RDW 15.6 H (13.2-15.2) % Seg Neuts % (Manual) 84.0 H (40.0-70.0) % Lymphocytes % (Manual) 9.0 L (13.4-35.0) % Lymphocytes # (Manual) 0.5 L (1.2-5.4) K/mm3 Chloride (98-107) mmol/L BUN (7-17) mg/dL Creatinine (0.6-1.2) mg/dL Glucose (65-100) mg/dL POC Glucose 248 H 303 H (70-105) mg/dL Calcium (8.4-10.2) mg/dL Total Protein (6.3-8.2) g/dL Albumin (3.9-5) g/dL Ur Specific [place] (1.003-1.030) Urine WBC (Auto) (0.0-6.0) /HPF U Epithel Cells (Auto) (0-13.0) /HPF Urine Creatinine (0.1-20.0) mg/dL Urine Total Protein (5-11.8) mg/dL 08/19/20 Range/Units 04:23 RBC (3.65-5.03) M/mm3 Hgb (10.1-14.3) gm/dl Hct (30.3-42.9) % MCH (28-32) pg RDW (13.2-15.2) % Seg Neuts % (Manual) (40.0-70.0) % Lymphocytes % (Manual) (13.4-35.0) % Lymphocytes # (Manual) (1.2-5.4) K/mm3 Chloride 97.2 L (98-107) mmol/L BUN 86 H (7-17) mg/dL Creatinine 9.2 H (0.6-1.2) mg/dL Glucose 271 H (65-100) mg/dL POC Glucose (70-105) mg/dL Calcium 7.5 L (8.4-10.2) mg/dL Total Protein 5.8 L (6.3-8.2) g/dL Albumin 2.5 L (3.9-5) g/dL Ur Specific [place] (1.003-1.030) Urine WBC (Auto) (0.0-6.0) /HPF U Epithel Cells (Auto) (0-13.0) /HPF Urine Creatinine (0.1-20.0) mg/dL Urine Total Protein (5-11.8) mg/dL
[2020-08-19] MEDS: CALCITRIOL 0.25 MCG CAP PO SCH (10:57)
[2020-08-19] MEDS: FOLIC ACID/VIT B COMP W-C 1 MG (RENAL CAPS) PO SCH (10:57)
[2020-08-19] MEDS: EZETIMIBE 10 MG TAB PO SCH (10:58)
[2020-08-19] MEDS: INSULIN GLARGINE 100 UNITS/ML SUB-Q SCH (11:00)
[2020-08-19] MEDS: HEPARIN 5,000 UNIT/1 ML VIAL SUB-Q SCH ×2 (13:03→22:33)
[2020-08-19] MEDS: LINAGLIPTIN 5 MG TAB PO SCH (14:10)
[2020-08-19] MEDS: AZITHROMYCIN/NS 500 MG/250 ML 500 MG/250 ML BAG IV SCH (23:35)
[2020-08-20] MEDS: ALBUTEROL 2.5 MG/3 ML NEBU IH SCH ×4 (04:11→19:10)
[2020-08-20] MEDS: HEPARIN 5,000 UNIT/1 ML VIAL SUB-Q SCH ×3 (06:43→21:14)
[2020-08-20] MEDS: INSULIN LISPRO 100 UNIT/ML SUB-Q SCH ×4 (08:27→21:43)
[2020-08-20] MEDS: INSULIN GLARGINE 100 UNITS/ML SUB-Q SCH (08:27)
--- NOTE | 2020-08-20 09:05 | Progress Note ---
Assessment and Plan Critical care statement The high probability OF a clinically significant sudden or life-threatening deterioration of the cardiorespiratory system and endocrine system required my full and direct attention, intervention and postoperative management. The aggregate critical care time was 40 minutes. The time is in addition to time spent performing reported procedures but includes the followin: Data review and interpretation 2: Patient assessment and monitoring of vital signs 3: Documentation 4:: Medication orders and management - Patient Problems (1) Acute respiratory failure with hypoxia Current Visit: Yes Status: Acute Plan to address problem: Coronavirus PCR positive Patient has bilateral pulmonary opacities Question of volume overload present because of the high creatinine and possible CKD/end-stage renal disease On high flow oxygen (2) Person under investigation for severe acute respiratory syndrome coronavirus 2 (SARS-CoV-2) infection Current Visit: Yes Status: Acute Plan to address problem: Coronavirus PCR positive (3) Bilateral pneumonia Current Visit: Yes Status: Acute Plan to address problem: In the meantime treated bilateral community-acquired pneumonia Patient initiated on IV Zithromax and IV Rocephin (4) Hypertension Current Visit: Yes Status: Chronic Qualifiers: Hypertension type: essential hypertension Qualified Code(s): I10 - Essential (primary) hypertension Plan to address problem: Continue antihypertensives and adjust medications (5) T2DM (type 2 diabetes mellitus) Current Visit: Yes Status: Chronic Qualifiers: Diabetes mellitus prison 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 (8) Acute kidney injury superimposed on CKD Current Visit: Yes Status: Acute (9) DVT prophylaxis Current Visit: Yes Status: Acute Plan to address problem: On heparin and GI prophylaxis Subjective Date of service: 08/19/20 Principal diagnosis: Acute respiratory failure with hypoxia, ANGELIQUE superimposed onCKD, Covid pneum Interval history: 64-year-old female with history of hypertension, diabetes, COPD and old CVA comes in for cough productive of yellow sputum and wheezing and headache and scratchy throat. Going on for 4 weeks since July 21. Symptoms have been progressive since July 21. Patient has took a course of Z-Bipin and steroids with no relief. Patient states that she requested a Covid test, insurance company and pressors positive after 3 days of testing today. Intermittent fever present. Exposure to coronavirus not known. Shortness of breath on exertion. 08/16/2020 Patient continues to be on high flow nasal cannula oxygen Patient to get Vas-Cath for intermittent hemodialysis 08/17/2020 Patient continues to be hypoxic Patient getting hemodialysis Patient on high flow nasal cannula oxygen 08/18/2020 Patient on high flow nasal cannula oxygen Patient getting intermittent hemodialysis Patient to be transferred to ICU because of the volume overload hemodialysis and high flow nasal cannula oxygen 08/19/2020 Patient on high flow nasal cannula oxygen Intubated Intermittent hemodialysis Objective - Constitutional Vitals: Vital Signs - 12hr 08/19/20 08/19/20 08/19/20 21:15 21:30 21:45 Temperature Pulse Rate 94 H 91 H 95 H Pulse Rate [ Anterior Bilateral Throughout] Pulse Rate [ From Monitor] Respiratory 25 H 24 25 H Rate Respiratory Rate [Anterior Bilateral Throughout] Blood Pressure 114/63 116/64 111/63 O2 Sat by Pulse 95 97 93 Oximetry 08/19/20 08/19/20 08/19/20 22:00 22:15 22:30 Temperature Pulse Rate 91 H 90 89 Pulse Rate [ Anterior Bilateral Throughout] Pulse Rate [ From Monitor] Respiratory 27 H 20 20 Rate Respiratory Rate [Anterior Bilateral Throughout] Blood Pressure 117/69 104/62 105/62 O2 Sat by Pulse 93 92 94 Oximetry 08/19/20 08/19/20 08/19/20 22:45 23:00 23:15 Temperature Pulse Rate 87 89 85 Pulse Rate [ Anterior Bilateral Throughout] Pulse Rate [ From Monitor] Respiratory 20 25 H 24 Rate Respiratory Rate [Anterior Bilateral Throughout] Blood Pressure 103/67 105/63 104/59 O2 Sat by Pulse 96 92 92 Oximetry 08/19/20 08/19/20 08/19/20 23:30 23:37 23:45 Temperature Pulse Rate 84 88 87 Pulse Rate [ Anterior Bilateral Throughout] Pulse Rate [ From Monitor] Respiratory 21 25 H 26 H Rate Respiratory Rate [Anterior Bilateral Throughout] Blood Pressure 105/64 105/64 105/65 O2 Sat by Pulse 89 94 92 Oximetry 08/19/20 08/19/20 08/19/20 23:53 23:55 23:56 Temperature Pulse Rate 87 70 Pulse Rate [ Anterior Bilateral Throughout] Pulse Rate [ 92 H From Monitor] Respiratory 26 H 22 Rate Respiratory Rate [Anterior Bilateral Throughout] Blood Pressure 105/65 O2 Sat by Pulse 94 90 Oximetry 08/20/20 08/20/20 08/20/20 00:00 00:15 00:30 Temperature 98.9 F Pulse Rate 91 H 93 H 92 H Pulse Rate [ Anterior Bilateral Throughout] Pulse Rate [ From Monitor] Respiratory 22 22 25 H Rate Respiratory Rate [Anterior Bilateral Throughout] Blood Pressure 114/70 98/66 98/68 O2 Sat by Pulse 93 91 94 Oximetry 08/20/20 08/20/20 08/20/20 00:45 01:00 01:15 Temperature Pulse Rate 92 H 88 85 Pulse Rate [ Anterior Bilateral Throughout] Pulse Rate [ From Monitor] Respiratory 21 23 25 H Rate Respiratory Rate [Anterior Bilateral Throughout] Blood Pressure 99/66 111/69 108/67 O2 Sat by Pulse 95 89 90 Oximetry 08/20/20 08/20/20 08/20/20 01:30 01:45 02:00 Temperature Pulse Rate 90 82 87 Pulse Rate [ Anterior Bilateral Throughout] Pulse Rate [ From Monitor] Respiratory 20 20 19 Rate Respiratory Rate [Anterior Bilateral Throughout] Blood Pressure 121/76 123/73 123/74 O2 Sat by Pulse 91 95 94 Oximetry 08/20/20 08/20/20 08/20/20 02:15 02:30 02:45 Temperature Pulse Rate 83 86 85 Pulse Rate [ Anterior Bilateral Throughout] Pulse Rate [ From Monitor] Respiratory 25 H 25 H 27 H Rate Respiratory Rate [Anterior Bilateral Throughout] Blood Pressure 123/74 129/72 119/74 O2 Sat by Pulse 95 90 Oximetry 08/20/20 08/20/20 08/20/20 03:00 03:15 03:30 Temperature Pulse Rate 84 87 84 Pulse Rate [ Anterior Bilateral Throughout] Pulse Rate [ From Monitor] Respiratory 25 H 23 21 Rate Respiratory Rate [Anterior Bilateral Throughout] Blood Pressure 125/72 112/74 128/76 O2 Sat by Pulse 91 90 95 Oximetry 08/20/20 08/20/20 08/20/20 03:37 03:45 04:00 Temperature 97.6 F Pulse Rate 86 85 Pulse Rate [ Anterior Bilateral Throughout] Pulse Rate [ 92 H From Monitor] Respiratory 22 24 Rate Respiratory Rate [Anterior Bilateral Throughout] Blood Pressure 133/80 124/78 O2 Sat by Pulse 93 94 Oximetry 08/20/20 08/20/20 08/20/20 04:15 04:30 04:45 Temperature Pulse Rate 83 81 89 Pulse Rate [ Anterior Bilateral Throughout] Pulse Rate [ From Monitor] Respiratory 23 24 20 Rate Respiratory Rate [Anterior Bilateral Throughout] Blood Pressure 119/75 117/74 101/67 O2 Sat by Pulse 88 91 91 Oximetry 08/20/20 08/20/20 08/20/20 05:00 05:15 05:30 Temperature Pulse Rate 85 82 87 Pulse Rate [ Anterior Bilateral Throughout] Pulse Rate [ From Monitor] Respiratory 22 21 22 Rate Respiratory Rate [Anterior Bilateral Throughout] Blood Pressure 99/63 119/67 112/61 O2 Sat by Pulse 93 93 95 Oximetry 08/20/20 08/20/20 08/20/20 05:45 06:00 06:15 Temperature Pulse Rate 90 85 85 Pulse Rate [ Anterior Bilateral Throughout] Pulse Rate [ From Monitor] Respiratory 25 H 24 24 Rate Respiratory Rate [Anterior Bilateral Throughout] Blood Pressure 112/61 123/75 108/71 O2 Sat by Pulse 87 95 93 Oximetry 08/20/20 08/20/20 08/20/20 06:31 06:45 07:00 Temperature Pulse Rate 92 H 80 80 Pulse Rate [ Anterior Bilateral Throughout] Pulse Rate [ From Monitor] Respiratory 25 H 25 H 23 Rate Respiratory Rate [Anterior Bilateral Throughout] Blood Pressure 133/73 102/59 103/59 O2 Sat by Pulse 86 89 89 Oximetry 08/20/20 08/20/20 08/20/20 07:15 07:30 07:45 Temperature Pulse Rate 84 80 84 Pulse Rate [ Anterior Bilateral Throughout] Pulse Rate [ From Monitor] Respiratory 19 23 24 Rate Respiratory Rate [Anterior Bilateral Throughout] Blood Pressure 103/61 104/61 110/57 O2 Sat by Pulse 89 88 89 Oximetry 08/20/20 08/20/20 08/20/20 08:00 08:15 08:30 Temperature Pulse Rate 87 88 86 Pulse Rate [ Anterior Bilateral Throughout] Pulse Rate [ 90 From Monitor] Respiratory 28 H 20 21 Rate Respiratory Rate [Anterior Bilateral Throughout] Blood Pressure 112/68 115/72 113/81 O2 Sat by Pulse 91 92 91 Oximetry 08/20/20 08/20/20 08:45 08:57 Temperature Pulse Rate Pulse Rate [ 93 H Anterior Bilateral Throughout] Pulse Rate [ From Monitor] Respiratory Rate Respiratory 20 Rate [Anterior Bilateral Throughout] Blood Pressure O2 Sat by Pulse 94 Oximetry General appearance: Present: mild distress, well-nourished - EENT Eyes: PERRL, EOM intact ENT: hearing intact, clear oral mucosa Ears: bilateral: normal - Neck Neck: supple, normal ROM - Respiratory Respiratory effort: normal Respiratory: bilateral: CTA - Breasts Breasts: normal - Cardiovascular Heart rate: 78 Rhythm: regular Heart Sounds: Present: S1 & S2. Absent: gallop, rub Extremities: pulses intact, No edema, normal color, Full ROM - Gastrointestinal General gastrointestinal: Present: soft, non-tender, non-distended, normal bowel sounds - Genitourinary Female genitourinary: normal - Integumentary Integumentary: clear, warm, dry - Musculoskeletal Musculoskeletal: 1, strength equal bilaterally - Neurologic Neurologic: moves all extremities - Psychiatric Psychiatric: memory intact, appropriate mood/affect, intact judgment & insight - Labs CBC & Chem 7: 08/23/20 05:47 08/23/20 05:47 Labs: Abnormal lab results 08/19/20 08/19/20 08/19/20 Range/Units 06:44 11:53 16:58 D-Dimer > 14144 H (0-234) ng/mlDDU POC Glucose 213 H 266 H (70-105) mg/dL Ferritin (10.0-200.0) ng/mL Lactate Dehydrogenase (91-180) units/L C-Reactive Protein (0.00-1.30) mg/dL 08/19/20 08/19/20 08/19/20 Range/Units 16:58 16:58 17:18 D-Dimer (0-234) ng/mlDDU POC Glucose 223 H (70-105) mg/dL Ferritin 1043.0 H (10.0-200.0) ng/mL Lactate Dehydrogenase 721 H (91-180) units/L C-Reactive Protein 3.00 H (0.00-1.30) mg/dL 08/19/20 Range/Units 22:53 D-Dimer (0-234) ng/mlDDU POC Glucose 273 H (70-105) mg/dL Ferritin (10.0-200.0) ng/mL Lactate Dehydrogenase (91-180) units/L C-Reactive Protein (0.00-1.30) mg/dL
--- NOTE | 2020-08-20 09:06 | Progress Note ---
Assessment and Plan - Patient Problems (1) Acute respiratory failure with hypoxia Current Visit: Yes Status: Acute Plan to address problem: Coronavirus PCR positive Patient has bilateral pulmonary opacities Question of volume overload present because of the high creatinine and possible CKD/end-stage renal disease Patient on high flow nasal cannula oxygen (2) Person under investigation for severe acute respiratory syndrome coronavirus 2 (SARS-CoV-2) infection Current Visit: Yes Status: Acute Plan to address problem: Coronavirus PCR requested (3) Bilateral pneumonia Current Visit: Yes Status: Acute Plan to address problem: In the meantime treated bilateral community-acquired pneumonia Patient initiated on IV Zithromax and IV Rocephin (4) Hypertension Current Visit: Yes Status: Chronic Qualifiers: Hypertension type: essential hypertension Qualified Code(s): I10 - Essential (primary) hypertension Plan to address problem: Continue antihypertensives and adjust medications (5) T2DM (type 2 diabetes mellitus) Current Visit: Yes Status: Chronic Qualifiers: Diabetes mellitus middle or intermediate [employer] principal insulin use: unspecified [facility] insulin use status Plan to address problem: Coverage for now Check hemoglobin A1c (6) COPD (chronic obstructive pulmonary disease) Current Visit: Yes Status: Chronic Plan to address problem: DuoNebs as needed (7) CKD (chronic kidney disease) Current Visit: Yes Status: Deleted Qualifiers: Chronic kidney disease stage: stage 5, not on chronic dialysis Qualified Code(s): N18.5 - Chronic kidney disease, stage 5 Plan to address problem: Nephrology consult requested (8) Hyperkalemia Current Visit: Yes Status: Acute Plan to address problem: Hyperkalemia treated. (9) DVT prophylaxis Current Visit: Yes Status: Acute Plan to address problem: On heparin and GI prophylaxis Subjective Date of service: 08/20/20 Principal diagnosis: Covid pneumonia, acute respiratory failure with hypoxia, ANGELIQUE Interval history: 64-year-old female with history of hypertension, diabetes, COPD and old CVA comes in for cough productive of yellow sputum and wheezing and headache and scratchy throat. Going on for 4 weeks since July 21. Symptoms have been progressive since July 21. Patient has took a course of Z-Bipin and steroids with no relief. Patient states that she requested a Covid test, insurance company and pressors positive after 3 days of testing today. Intermittent fever present. Exposure to coronavirus not known. Shortness of breath on exertion. 08/21/2020 Patient continues to be on high flow nasal cannula oxygen Intermittent hemodialysis Patient in ICU because of her high flow nasal cannula oxygen and hemodialysis Objective - Constitutional Vitals: Vital Signs - 12hr 08/19/20 08/19/20 08/19/20 21:15 21:30 21:45 Temperature Pulse Rate 94 H 91 H 95 H Pulse Rate [ Anterior Bilateral Throughout] Pulse Rate [ From Monitor] Respiratory 25 H 24 25 H Rate Respiratory Rate [Anterior Bilateral Throughout] Blood Pressure 114/63 116/64 111/63 O2 Sat by Pulse 95 97 93 Oximetry 08/19/20 08/19/20 08/19/20 22:00 22:15 22:30 Temperature Pulse Rate 91 H 90 89 Pulse Rate [ Anterior Bilateral Throughout] Pulse Rate [ From Monitor] Respiratory 27 H 20 20 Rate Respiratory Rate [Anterior Bilateral Throughout] Blood Pressure 117/69 104/62 105/62 O2 Sat by Pulse 93 92 94 Oximetry 08/19/20 08/19/20 08/19/20 22:45 23:00 23:15 Temperature Pulse Rate 87 89 85 Pulse Rate [ Anterior Bilateral Throughout] Pulse Rate [ From Monitor] Respiratory 20 25 H 24 Rate Respiratory Rate [Anterior Bilateral Throughout] Blood Pressure 103/67 105/63 104/59 O2 Sat by Pulse 96 92 92 Oximetry 08/19/20 08/19/20 08/19/20 23:30 23:37 23:45 Temperature Pulse Rate 84 88 87 Pulse Rate [ Anterior Bilateral Throughout] Pulse Rate [ From Monitor] Respiratory 21 25 H 26 H Rate Respiratory Rate [Anterior Bilateral Throughout] Blood Pressure 105/64 105/64 105/65 O2 Sat by Pulse 89 94 92 Oximetry 08/19/20 08/19/20 08/19/20 23:53 23:55 23:56 Temperature Pulse Rate 87 70 Pulse Rate [ Anterior Bilateral Throughout] Pulse Rate [ 92 H From Monitor] Respiratory 26 H 22 Rate Respiratory Rate [Anterior Bilateral Throughout] Blood Pressure 105/65 O2 Sat by Pulse 94 90 Oximetry 08/20/20 08/20/20 08/20/20 00:00 00:15 00:30 Temperature 98.9 F Pulse Rate 91 H 93 H 92 H Pulse Rate [ Anterior Bilateral Throughout] Pulse Rate [ From Monitor] Respiratory 22 22 25 H Rate Respiratory Rate [Anterior Bilateral Throughout] Blood Pressure 114/70 98/66 98/68 O2 Sat by Pulse 93 91 94 Oximetry 08/20/20 08/20/20 08/20/20 00:45 01:00 01:15 Temperature Pulse Rate 92 H 88 85 Pulse Rate [ Anterior Bilateral Throughout] Pulse Rate [ From Monitor] Respiratory 21 23 25 H Rate Respiratory Rate [Anterior Bilateral Throughout] Blood Pressure 99/66 111/69 108/67 O2 Sat by Pulse 95 89 90 Oximetry 08/20/20 08/20/20 08/20/20 01:30 01:45 02:00 Temperature Pulse Rate 90 82 87 Pulse Rate [ Anterior Bilateral Throughout] Pulse Rate [ From Monitor] Respiratory 20 20 19 Rate Respiratory Rate [Anterior Bilateral Throughout] Blood Pressure 121/76 123/73 123/74 O2 Sat by Pulse 91 95 94 Oximetry 08/20/20 08/20/20 08/20/20 02:15 02:30 02:45 Temperature Pulse Rate 83 86 85 Pulse Rate [ Anterior Bilateral Throughout] Pulse Rate [ From Monitor] Respiratory 25 H 25 H 27 H Rate Respiratory Rate [Anterior Bilateral Throughout] Blood Pressure 123/74 129/72 119/74 O2 Sat by Pulse 95 90 Oximetry 08/20/20 08/20/20 08/20/20 03:00 03:15 03:30 Temperature Pulse Rate 84 87 84 Pulse Rate [ Anterior Bilateral Throughout] Pulse Rate [ From Monitor] Respiratory 25 H 23 21 Rate Respiratory Rate [Anterior Bilateral Throughout] Blood Pressure 125/72 112/74 128/76 O2 Sat by Pulse 91 90 95 Oximetry 08/20/20 08/20/20 08/20/20 03:37 03:45 04:00 Temperature 97.6 F Pulse Rate 86 85 Pulse Rate [ Anterior Bilateral Throughout] Pulse Rate [ 92 H From Monitor] Respiratory 22 24 Rate Respiratory Rate [Anterior Bilateral Throughout] Blood Pressure 133/80 124/78 O2 Sat by Pulse 93 94 Oximetry 08/20/20 08/20/20 08/20/20 04:15 04:30 04:45 Temperature Pulse Rate 83 81 89 Pulse Rate [ Anterior Bilateral Throughout] Pulse Rate [ From Monitor] Respiratory 23 24 20 Rate Respiratory Rate [Anterior Bilateral Throughout] Blood Pressure 119/75 117/74 101/67 O2 Sat by Pulse 88 91 91 Oximetry 08/20/20 08/20/20 08/20/20 05:00 05:15 05:30 Temperature Pulse Rate 85 82 87 Pulse Rate [ Anterior Bilateral Throughout] Pulse Rate [ From Monitor] Respiratory 22 21 22 Rate Respiratory Rate [Anterior Bilateral Throughout] Blood Pressure 99/63 119/67 112/61 O2 Sat by Pulse 93 93 95 Oximetry 08/20/20 08/20/20 08/20/20 05:45 06:00 06:15 Temperature Pulse Rate 90 85 85 Pulse Rate [ Anterior Bilateral Throughout] Pulse Rate [ From Monitor] Respiratory 25 H 24 24 Rate Respiratory Rate [Anterior Bilateral Throughout] Blood Pressure 112/61 123/75 108/71 O2 Sat by Pulse 87 95 93 Oximetry 08/20/20 08/20/20 08/20/20 06:31 06:45 07:00 Temperature Pulse Rate 92 H 80 80 Pulse Rate [ Anterior Bilateral Throughout] Pulse Rate [ From Monitor] Respiratory 25 H 25 H 23 Rate Respiratory Rate [Anterior Bilateral Throughout] Blood Pressure 133/73 102/59 103/59 O2 Sat by Pulse 86 89 89 Oximetry 08/20/20 08/20/20 08/20/20 07:15 07:30 07:45 Temperature Pulse Rate 84 80 84 Pulse Rate [ Anterior Bilateral Throughout] Pulse Rate [ From Monitor] Respiratory 19 23 24 Rate Respiratory Rate [Anterior Bilateral Throughout] Blood Pressure 103/61 104/61 110/57 O2 Sat by Pulse 89 88 89 Oximetry 08/20/20 08/20/20 08/20/20 08:00 08:15 08:30 Temperature Pulse Rate 87 88 86 Pulse Rate [ Anterior Bilateral Throughout] Pulse Rate [ 90 From Monitor] Respiratory 28 H 20 21 Rate Respiratory Rate [Anterior Bilateral Throughout] Blood Pressure 112/68 115/72 113/81 O2 Sat by Pulse 91 92 91 Oximetry 08/20/20 08/20/20 08:45 08:57 Temperature Pulse Rate Pulse Rate [ 93 H Anterior Bilateral Throughout] Pulse Rate [ From Monitor] Respiratory Rate Respiratory 20 Rate [Anterior Bilateral Throughout] Blood Pressure O2 Sat by Pulse 94 Oximetry General appearance: Present: no acute distress, well-nourished - EENT Eyes: PERRL, EOM intact ENT: hearing intact, clear oral mucosa Ears: bilateral: normal - Neck Neck: supple, normal ROM - Respiratory Respiratory effort: normal Respiratory: bilateral: CTA - Breasts Breasts: normal - Cardiovascular Heart rate: 78 Rhythm: regular Heart Sounds: Present: S1 & S2. Absent: gallop, rub Extremities: pulses intact, No edema, normal color, Full ROM - Gastrointestinal General gastrointestinal: Present: soft, non-tender, non-distended, normal bowel sounds - Genitourinary Female genitourinary: normal - Integumentary Integumentary: clear, warm, dry - Musculoskeletal Musculoskeletal: 1, strength equal bilaterally - Neurologic Neurologic: moves all extremities - Psychiatric Psychiatric: memory intact, appropriate mood/affect, intact judgment & insight - Labs CBC & Chem 7: 08/23/20 05:47 08/23/20 05:47 Labs: Abnormal lab results 08/19/20 08/19/20 08/19/20 Range/Units 06:44 11:53 16:58 D-Dimer > 33235 H (0-234) ng/mlDDU POC Glucose 213 H 266 H (70-105) mg/dL Ferritin (10.0-200.0) ng/mL Lactate Dehydrogenase (91-180) units/L C-Reactive Protein (0.00-1.30) mg/dL 08/19/20 08/19/20 08/19/20 Range/Units 16:58 16:58 17:18 D-Dimer (0-234) ng/mlDDU POC Glucose 223 H (70-105) mg/dL Ferritin 1043.0 H (10.0-200.0) ng/mL Lactate Dehydrogenase 721 H (91-180) units/L C-Reactive Protein 3.00 H (0.00-1.30) mg/dL 08/19/20 Range/Units 22:53 D-Dimer (0-234) ng/mlDDU POC Glucose 273 H (70-105) mg/dL Ferritin (10.0-200.0) ng/mL Lactate Dehydrogenase (91-180) units/L C-Reactive Protein (0.00-1.30) mg/dL
[2020-08-20] MEDS: PANTOPRAZOLE 40 MG TAB PO SCH (09:54)
[2020-08-20] MEDS: COLCHICINE 0.6 MG TAB PO SCH (09:54)
[2020-08-20] MEDS: EZETIMIBE 10 MG TAB PO SCH (09:54)
[2020-08-20] MEDS: CALCITRIOL 0.25 MCG CAP PO SCH (09:54)
[2020-08-20] MEDS: FOLIC ACID/VIT B COMP W-C 1 MG (RENAL CAPS) PO SCH (09:54)
[2020-08-20] MEDS: dexAMETHasone 20 MG in SODIUM CHLORIDE 0.9% 50 ML IV SCH ×2 (09:55→21:14)
[2020-08-20] MEDS: ZINC SULFATE 220 MG CAP PO SCH ×2 (09:55→21:15)
[2020-08-20] MEDS: ASCORBIC ACID 500 MG TAB PO SCH ×2 (09:55→21:14)
[2020-08-20] MEDS: PRAVASTATIN 40 MG TAB PO SCH (09:55)
[2020-08-20] MEDS ORDERED: INSULIN GLARGINE 100 UNITS/ML SUB-Q ONE (10:00)
--- NOTE | 2020-08-20 11:45 | Progress Note ---
Subjective Interval history: Patient was seen today for follow-up of multiple renal related issues, around 12:30 PM patient remains critically ill in ICU setting, Renal function has worsened, Hemodialysis was ordered earlier today I also came and saw the patient on hemodialysis which she has been tolerating well Events of 24 hours vitals labs intake output medications were reviewed Past medical history: Reviewed Family history: Reviewed Social history: Reviewed Allergies: Reviewed Physical examination: Vitals: Reviewed HEENT: No pallor or icterus oral mucosa moist Neck: Supple no JVD no thyromegaly Chest: Bilateral crackles Heart: Regular rate and rhythm S1-S2 heard no S3-S4 Abdomen: Soft nontender no voluntary guarding rigidity rebound Extremity: Dry skin less than 1+ peripheral edema Psychiatric: No evidence of agitation and aggression noted Dermatology: No petechial rashes Labs and x-rays: Reviewed from today Assessment and plan #acute kidney injury: Patient was initiated on renal placement therapy again today which he seems to be tolerating well, discussed with dialysis nurse to continue to dialyze ultrafiltration only as tolerated I also saw in supervised on hemodialysis, she seems to be tolerating treatment well, discussed with geothermal field technician Alexsander at the bedside To ultrafiltrate only when she is able to tolerate #Has underlying chronic kidney disease her baseline creatinine is around 1.7-[address] Rivers's office I have reviewed her record #Respiratory failure resulting from Covid 19 pneumonia currently being followed by pulmonary service #Her bilateral pulmonary infiltrates appeared to be mostly resulting from Covid 19 pneumonia, patient does not tolerate ultrafiltration very well and hence will need to, do very judicious ultrafiltration depending on her I/O Covid 19 viral pneumonia with ARDS like picture, patient has multiorgan failure, she will need ongoing renal replacement therapy as tolerated for now #Will follow up on a daily basis if she will need to be dialyzed tomorrow again depending on her tolerance #Covid 19 infection Time spent in critical care 34 minutes We'll continue to follow and make recommendation for renal standpoint Objective - Vital Signs Vital signs: Vital Signs - 12hr 08/19/20 08/19/20 08/19/20 23:53 23:55 23:56 Temperature Pulse Rate 87 70 Pulse Rate [ Anterior Bilateral Throughout] Pulse Rate [ 92 H From Monitor] Respiratory 26 H 22 Rate Respiratory Rate [Anterior Bilateral Throughout] Blood Pressure 105/65 O2 Sat by Pulse 94 90 Oximetry 08/20/20 08/20/20 08/20/20 00:00 00:15 00:30 Temperature 98.9 F Pulse Rate 91 H 93 H 92 H Pulse Rate [ Anterior Bilateral Throughout] Pulse Rate [ From Monitor] Respiratory 22 22 25 H Rate Respiratory Rate [Anterior Bilateral Throughout] Blood Pressure 114/70 98/66 98/68 O2 Sat by Pulse 93 91 94 Oximetry 08/20/20 08/20/20 08/20/20 00:45 01:00 01:15 Temperature Pulse Rate 92 H 88 85 Pulse Rate [ Anterior Bilateral Throughout] Pulse Rate [ From Monitor] Respiratory 21 23 25 H Rate Respiratory Rate [Anterior Bilateral Throughout] Blood Pressure 99/66 111/69 108/67 O2 Sat by Pulse 95 89 90 Oximetry 08/20/20 08/20/20 08/20/20 01:30 01:45 02:00 Temperature Pulse Rate 90 82 87 Pulse Rate [ Anterior Bilateral Throughout] Pulse Rate [ From Monitor] Respiratory 20 20 19 Rate Respiratory Rate [Anterior Bilateral Throughout] Blood Pressure 121/76 123/73 123/74 O2 Sat by Pulse 91 95 94 Oximetry 08/20/20 08/20/20 08/20/20 02:15 02:30 02:45 Temperature Pulse Rate 83 86 85 Pulse Rate [ Anterior Bilateral Throughout] Pulse Rate [ From Monitor] Respiratory 25 H 25 H 27 H Rate Respiratory Rate [Anterior Bilateral Throughout] Blood Pressure 123/74 129/72 119/74 O2 Sat by Pulse 95 90 Oximetry 08/20/20 08/20/20 08/20/20 03:00 03:15 03:30 Temperature Pulse Rate 84 87 84 Pulse Rate [ Anterior Bilateral Throughout] Pulse Rate [ From Monitor] Respiratory 25 H 23 21 Rate Respiratory Rate [Anterior Bilateral Throughout] Blood Pressure 125/72 112/74 128/76 O2 Sat by Pulse 91 90 95 Oximetry 08/20/20 08/20/20 08/20/20 03:37 03:45 04:00 Temperature 97.6 F Pulse Rate 86 85 Pulse Rate [ Anterior Bilateral Throughout] Pulse Rate [ 92 H From Monitor] Respiratory 22 24 Rate Respiratory Rate [Anterior Bilateral Throughout] Blood Pressure 133/80 124/78 O2 Sat by Pulse 93 94 Oximetry 08/20/20 08/20/20 08/20/20 04:15 04:30 04:45 Temperature Pulse Rate 83 81 89 Pulse Rate [ Anterior Bilateral Throughout] Pulse Rate [ From Monitor] Respiratory 23 24 20 Rate Respiratory Rate [Anterior Bilateral Throughout] Blood Pressure 119/75 117/74 101/67 O2 Sat by Pulse 88 91 91 Oximetry 08/20/20 08/20/20 08/20/20 05:00 05:15 05:30 Temperature Pulse Rate 85 82 87 Pulse Rate [ Anterior Bilateral Throughout] Pulse Rate [ From Monitor] Respiratory 22 21 22 Rate Respiratory Rate [Anterior Bilateral Throughout] Blood Pressure 99/63 119/67 112/61 O2 Sat by Pulse 93 93 95 Oximetry 08/20/20 08/20/20 08/20/20 05:45 06:00 06:15 Temperature Pulse Rate 90 85 85 Pulse Rate [ Anterior Bilateral Throughout] Pulse Rate [ From Monitor] Respiratory 25 H 24 24 Rate Respiratory Rate [Anterior Bilateral Throughout] Blood Pressure 112/61 123/75 108/71 O2 Sat by Pulse 87 95 93 Oximetry 08/20/20 08/20/20 08/20/20 06:31 06:45 07:00 Temperature Pulse Rate 92 H 80 80 Pulse Rate [ Anterior Bilateral Throughout] Pulse Rate [ From Monitor] Respiratory 25 H 25 H 23 Rate Respiratory Rate [Anterior Bilateral Throughout] Blood Pressure 133/73 102/59 103/59 O2 Sat by Pulse 86 89 89 Oximetry 08/20/20 08/20/20 08/20/20 07:15 07:30 07:45 Temperature Pulse Rate 84 80 84 Pulse Rate [ Anterior Bilateral Throughout] Pulse Rate [ From Monitor] Respiratory 19 23 24 Rate Respiratory Rate [Anterior Bilateral Throughout] Blood Pressure 103/61 104/61 110/57 O2 Sat by Pulse 89 88 89 Oximetry 08/20/20 08/20/20 08/20/20 08:00 08:15 08:30 Temperature Pulse Rate 87 88 86 Pulse Rate [ Anterior Bilateral Throughout] Pulse Rate [ 90 From Monitor] Respiratory 28 H 20 21 Rate Respiratory Rate [Anterior Bilateral Throughout] Blood Pressure 112/68 115/72 113/81 O2 Sat by Pulse 91 92 91 Oximetry 08/20/20 08/20/20 08/20/20 08:45 08:57 09:00 Temperature Pulse Rate 99 H 98 H Pulse Rate [ 93 H Anterior Bilateral Throughout] Pulse Rate [ From Monitor] Respiratory 24 15 Rate Respiratory 20 Rate [Anterior Bilateral Throughout] Blood Pressure 113/81 115/73 O2 Sat by Pulse 88 94 90 Oximetry 08/20/20 08/20/20 08/20/20 09:15 09:30 09:45 Temperature Pulse Rate 99 H 89 88 Pulse Rate [ Anterior Bilateral Throughout] Pulse Rate [ From Monitor] Respiratory 25 H 22 22 Rate Respiratory Rate [Anterior Bilateral Throughout] Blood Pressure 106/64 110/69 119/72 O2 Sat by Pulse 92 95 91 Oximetry 08/20/20 08/20/20 08/20/20 10:00 10:15 10:30 Temperature Pulse Rate 92 H 89 92 H Pulse Rate [ Anterior Bilateral Throughout] Pulse Rate [ From Monitor] Respiratory 21 16 24 Rate Respiratory Rate [Anterior Bilateral Throughout] Blood Pressure 117/81 122/74 121/68 O2 Sat by Pulse 93 98 93 Oximetry 08/20/20 08/20/20 10:45 11:00 Temperature Pulse Rate 95 H 90 Pulse Rate [ Anterior Bilateral Throughout] Pulse Rate [ From Monitor] Respiratory 9 L 25 H Rate Respiratory Rate [Anterior Bilateral Throughout] Blood Pressure 117/73 114/67 O2 Sat by Pulse 86 85 Oximetry - Lab 08/19/20 04:23 08/19/20 04:23 Most recent lab results Calcium 7.5 mg/dL (8.4-10.2) L 08/19/20 04:23 Phosphorus 5.90 mg/dL (2.5-4.5) H 08/17/20 09:35 Urine Creatinine 248.0 mg/dL (0.1-20.0) H 08/17/20 17:45 Urine Total Protein 196 mg/dL (5-11.8) H 08/17/20 17:45 Medications & Allergies - Medications Allergies/Adverse Reactions: Allergies gabapentin [From Neurontin] Allergy (Verified 08/15/20 17:25) Unknown rosuvastatin calcium [From Crestor] Allergy (Verified 08/15/20 17:25) Rash fluticasone propionate [From Advair Diskus] Adverse Reaction (Verified 08/15/20 17:25) Headache salmeterol xinafoate [From Advair Diskus] Adverse Reaction (Verified 08/15/20 17:25) Headache IV DYE Adverse Reaction (Uncoded 08/15/20 17:25) Itching Home Medications: Home Medications Medication Instructions Recorded Confirmed Last Taken Type Colchicine [Colcrys] 0.6 mg PO DAILY 08/15/20 08/15/20 Unknown History Cyanocobalamin (Vitamin B-12) 1,000 mcg IJ QMONTH 08/15/20 08/15/20 Unknown History [Physicians Ez Use B-12] Ergocalciferol [Vitamin D2] 1 cap PO QWEEK 08/15/20 08/15/20 Unknown History Ezetimibe/Simvastatin 1 each PO DAILY 08/15/20 08/15/20 Unknown History [Ezetimibe-Simvastatin 10-20 mg] Famotidine [Pepcid] 40 mg PO DAILY 08/15/20 08/15/20 Unknown History Furosemide [Lasix] 40 mg PO BID 08/15/20 08/15/20 Unknown History HYDROcodone/APAP 5-325 [[place] 1 each PO Q6HR PRN 08/15/20 08/15/20 Unknown History 5/325] Linagliptin [Tradjenta] 5 mg PO QDAY 08/15/20 08/15/20 Unknown History Omeprazole 40 mg PO DAILY 08/15/20 08/15/20 Unknown History Potassium Chloride [K-Dur] 20 meq PO BID 08/15/20 08/15/20 Unknown History Valsartan [Diovan] 160 mg PO QDAY 08/15/20 08/15/20 Unknown History allopurinoL [Zyloprim] 200 mg PO DAILY 08/15/20 08/15/20 Unknown History carvediloL [Coreg] 3.125 mg PO BID 08/15/20 08/15/20 Unknown History Albuterol Sulfate [Proair 90 mcg INHALATION Q4H PRN 08/17/20 08/17/20 Unknown History Digihaler] Spiriva 2.5 mcg INHALATION DAILY 08/17/20 08/17/20 Unknown History Symbicort 160-4.5 Mcg Inhaler 160 mcg INHALATION BID 08/17/20 08/17/20 Unknown History Active Medications: Generic Name Dose Route Start Last Admin Trade Name Freq PRN Reason Stop Dose Admin Acetaminophen 650 mg 08/15/20 22:16 08/19/20 01:17 Acetaminophen 325 Mg Tab PO 650 mg Q4H PRN Administration Pain MILD(1-3)/Fever >100.5/TELLO Hydrocodone Bitart/Acetaminophen 1 each 08/15/20 22:06 Hydrocodone/Acetaminophen 5-325 Mg Tab PO Q6HR PRN Pain, Moderate (4-6) Albuterol 2.5 mg 08/17/20 19:26 08/20/20 08:45 Albuterol 2.5 Mg/3 Ml Nebu IH 2.5 mg Q6HRT SYLVAIN Administration Ascorbic Acid 1,000 mg 08/15/20 23:00 08/20/20 09:55 Ascorbic Acid 500 Mg Tab PO 1,000 mg BID SYLVAIN Administration Calcitriol 0.25 mcg 08/18/20 10:00 08/20/20 09:54 Calcitriol 0.25 Mcg Cap PO 0.25 mcg QDAY SYLVAIN Administration Colchicine 0.6 mg 08/16/20 10:00 08/20/20 09:54 Colchicine 0.6 Mg Tab PO 0.6 mg QOD SYLVAIN Administration Ezetimibe 10 mg 08/16/20 10:00 08/20/20 09:54 Ezetimibe 10 Mg Tab PO 10 mg DAILY SYLVAIN Administration Heparin Sodium (Porcine) 5,000 unit 08/19/20 14:00 08/20/20 06:43 Heparin 5,000 Unit/1 Ml Vial SUB-Q 5,000 unit Q8HR SYLVAIN Administration Hydromorphone HCl 0.5 mg 08/15/20 22:16 Hydromorphone 1 Mg/1 Ml Inj IV Q3H PRN Pain , Severe (7-10) Sodium Chloride 100 mls @ 999 mls/hr 08/18/20 10:07 Nacl 0.9% IV SARAI PRN Hypotension Dexamethasone 20 mg/ Sodium 55 mls @ 100 mls/hr 08/18/20 15:00 08/20/20 09:55 Chloride IV 08/23/20 14:59 100 mls/hr Q12HR SYLVAIN Administration Norepinephrine 4 mg in 250 mls @ 7.5 mls/hr 08/19/20 10:00 Levophed Drip 4 Mg/Ns 250 Ml IV TITR SYLVAIN Protocol 2 MCG/MIN Insulin Glargine 15 units 08/21/20 08:00 Insulin Glargine 100 Units/Ml SUB-Q QAMDIAB SYLVAIN Insulin Human Lispro 0 unit 08/18/20 13:23 08/20/20 08:27 Insulin Lispro 100 Unit/Ml SUB-Q 6 unit ACHS SYLVAIN Administration Protocol Linagliptin 5 mg 08/16/20 10:00 08/19/20 14:10 Linagliptin 5 Mg Tab PO 5 mg QDAY SYLVAIN Administration Metoclopramide HCl 5 mg 08/15/20 22:37 Metoclopramide 10 Mg/2 Ml Inj IV Q6H PRN Nausea And Vomiting Multivit/Ca Carb/B Cmplx/FA/Prenat 1 cap 08/18/20 10:00 08/20/20 09:54 Folic Acid/Vit B Comp W-C 1 Mg (Renal Caps) PO 1 cap DAILY SYLVAIN Administration Ondansetron HCl 4 mg 08/15/20 22:16 Ondansetron 4 Mg/2 Ml Inj IV Q8H PRN Nausea And Vomiting Oxycodone/Acetaminophen 1 tab 08/15/20 22:16 08/18/20 09:58 Oxycodone /Acetaminophen 5-325mg Tab PO 1 tab Q6H PRN Administration Pain, Moderate (4-6) Pantoprazole Sodium 40 mg 08/16/20 10:00 08/20/20 09:54 Pantoprazole 40 Mg Tab PO 40 mg DAILY SYLVAIN Administration Pravastatin Sodium 40 mg 08/16/20 10:00 08/20/20 09:55 Pravastatin 40 Mg Tab PO 40 mg DAILY SYLVAIN Administration Pseudoephedrine/Acetam/Chlorphenir 10 ml 08/18/20 10:30 08/18/20 17:52 Guaifenesin/Codeine 100-10mg Oral Liqd 5 Ml PO 10 ml Q4H PRN Administration Cough Sodium Chloride 10 ml 08/15/20 23:00 08/20/20 09:46 Sodium Chloride 0.9% 10 Ml Flush Syringe IV 10 ml BID SYLVAIN Administration Sodium Chloride 10 ml 08/15/20 22:16 Sodium Chloride 0.9% 10 Ml Flush Syringe IV PRN PRN LINE FLUSH Zinc Sulfate 220 mg 08/15/20 23:00 08/20/20 09:55 Zinc Sulfate 220 Mg Cap PO 220 mg BID SYLVAIN Administration
[2020-08-20] MEDS ORDERED: SODIUM CHLORIDE 0.9% 100 ML IV PRN (12:00)
[2020-08-20] MEDS: LINAGLIPTIN 5 MG TAB PO SCH (12:41)
[2020-08-20] MEDS: HYDROcodone/ACETAMINOPHEN 5-325 MG TAB PO PRN (21:43)
--- NOTE | 2020-08-20 22:12 | Progress Note ---
Assessment and Plan Imp: 1. Covid-19 2. Viral pneumonia 3. ARDS 4. Acute respiratory failure 5. ANGELIQUE 6. HARPER 7. Morbid obesity Rec: 1. Wean HFNC to keep sats 88% or > 2. On Decadron per ID 3. Keep as dry as possible; HD per renal 4. Renal failure precludes Remdesivir 5. No COPD on office spirometry from 2019 6. DVT PPx 7. CXR in AM 8. Prognosis guarded CCT 31 minutes Subjective Date of service: 08/20/20 Principal diagnosis: Acute respiratory failure Interval history: No events. On HFNC. Awake, alert/oriented but not answering my questions. Active Medications Acetaminophen (Acetaminophen 325 Mg Tab) 650 mg PO Q4H PRN PRN Reason: Pain MILD(1-3)/Fever >100.5/TELLO Last Admin: 08/19/20 01:17 Dose: 650 mg Documented by: Hydrocodone Bitart/Acetaminophen (Hydrocodone/Acetaminophen 5-325 Mg Tab) 1 each PO Q6HR PRN PRN Reason: Pain, Moderate (4-6) Last Admin: 08/20/20 21:43 Dose: 1 each Documented by: Albuterol (Albuterol 2.5 Mg/3 Ml Nebu) 2.5 mg IH Q6HRT [facility] Last Admin: 08/20/20 19:10 Dose: 2.5 mg Documented by: Ascorbic Acid (Ascorbic Acid 500 Mg Tab) 1,000 mg PO BID [facility] Last Admin: 08/20/20 21:14 Dose: 1,000 mg Documented by: Calcitriol (Calcitriol 0.25 Mcg Cap) 0.25 mcg PO QDAY [facility] Last Admin: 08/20/20 09:54 Dose: 0.25 mcg Documented by: Colchicine (Colchicine 0.6 Mg Tab) 0.6 mg PO QOD [facility] Last Admin: 08/20/20 09:54 Dose: 0.6 mg Documented by: Ezetimibe (Ezetimibe 10 Mg Tab) 10 mg PO DAILY [facility] Last Admin: 08/20/20 09:54 Dose: 10 mg Documented by: Heparin Sodium (Porcine) (Heparin 5,000 Unit/1 Ml Vial) 5,000 unit SUB-Q Q8HR [facility] Last Admin: 08/20/20 21:14 Dose: 5,000 unit Documented by: Hydromorphone HCl (Hydromorphone 1 Mg/1 Ml Inj) 0.5 mg IV Q3H PRN PRN Reason: Pain , Severe (7-10) Sodium Chloride (Nacl 0.9%) 100 mls @ 999 mls/hr IV SARAI PRN PRN Reason: Hypotension Dexamethasone 20 mg/ Sodium (Chloride) 55 mls @ 100 mls/hr IV Q12HR [facility] Stop: 08/23/20 14:59 Last Admin: 08/20/20 21:14 Dose: 100 mls/hr Documented by: Norepinephrine (Levophed Drip 4 Mg/Ns 250 Ml) 4 mg in 250 mls @ 7.5 mls/hr IV TITR SYLVAIN; Protocol Sodium Chloride (Nacl 0.9%) 100 mls @ 999 mls/hr IV SARAI PRN PRN Reason: Hypotension Insulin Glargine (Insulin Glargine 100 Units/Ml) 15 units SUB-Q QAMDIAB SYLVAIN Insulin Human Lispro (Insulin Lispro 100 Unit/Ml) 0 unit SUB-Q ACHS [facility]; Protocol Last Admin: 08/20/20 21:43 Dose: 6 unit Documented by: Linagliptin (Linagliptin 5 Mg Tab) 5 mg PO QDAY [facility] Last Admin: 08/20/20 12:41 Dose: Not Given Documented by: Metoclopramide HCl (Metoclopramide 10 Mg/2 Ml Inj) 5 mg IV Q6H PRN PRN Reason: Nausea And Vomiting Multivit/Ca Carb/B Cmplx/FA/Prenat (Folic Acid/Vit B Comp W-C 1 Mg (Renal Caps)) 1 cap PO DAILY [facility] Last Admin: 08/20/20 09:54 Dose: 1 cap Documented by: Ondansetron HCl (Ondansetron 4 Mg/2 Ml Inj) 4 mg IV Q8H PRN PRN Reason: Nausea And Vomiting Oxycodone/Acetaminophen (Oxycodone /Acetaminophen 5-325mg Tab) 1 tab PO Q6H PRN PRN Reason: Pain, Moderate (4-6) Last Admin: 08/18/20 09:58 Dose: 1 tab Documented by: Pantoprazole Sodium (Pantoprazole 40 Mg Tab) 40 mg PO DAILY [facility] Last Admin: 08/20/20 09:54 Dose: 40 mg Documented by: Pravastatin Sodium (Pravastatin 40 Mg Tab) 40 mg PO DAILY [facility] Last Admin: 08/20/20 09:55 Dose: 40 mg Documented by: Pseudoephedrine/Acetam/Chlorphenir (Guaifenesin/Codeine 100-10mg Oral Liqd 5 Ml) 10 ml PO Q4H PRN PRN Reason: Cough Last Admin: 08/18/20 17:52 Dose: 10 ml Documented by: Sodium Chloride (Sodium Chloride 0.9% 10 Ml Flush Syringe) 10 ml IV BID [facility] Last Admin: 08/20/20 21:14 Dose: 10 ml Documented by: Sodium Chloride (Sodium Chloride 0.9% 10 Ml Flush Syringe) 10 ml IV PRN PRN PRN Reason: LINE FLUSH Zinc Sulfate (Zinc Sulfate 220 Mg Cap) 220 mg PO BID [facility] Last Admin: 08/20/20 21:15 Dose: 220 mg Documented by: Objective Vital Signs - 12hr 08/20/20 08/20/20 08/20/20 10:15 10:30 10:45 Temperature Pulse Rate 89 92 H 95 H Pulse Rate [ Anterior Bilateral Throughout] Pulse Rate [ From Monitor] Respiratory 16 24 9 L Rate Respiratory Rate [Anterior Bilateral Throughout] Blood Pressure 122/74 121/68 117/73 O2 Sat by Pulse 98 93 86 Oximetry O2 Sat by Pulse Oximetry [ Anterior Bilateral Throughout] 08/20/20 08/20/20 08/20/20 11:00 11:15 11:30 Temperature Pulse Rate 90 91 H 93 H Pulse Rate [ Anterior Bilateral Throughout] Pulse Rate [ From Monitor] Respiratory 25 H 23 17 Rate Respiratory Rate [Anterior Bilateral Throughout] Blood Pressure 114/67 113/75 118/85 O2 Sat by Pulse 85 74 L 99 Oximetry O2 Sat by Pulse Oximetry [ Anterior Bilateral Throughout] 08/20/20 08/20/20 08/20/20 11:45 12:00 12:15 Temperature Pulse Rate 91 H 96 H 88 Pulse Rate [ Anterior Bilateral Throughout] Pulse Rate [ 88 From Monitor] Respiratory 13 26 H 33 H Rate Respiratory Rate [Anterior Bilateral Throughout] Blood Pressure 113/75 116/80 126/72 O2 Sat by Pulse 96 94 Oximetry O2 Sat by Pulse Oximetry [ Anterior Bilateral Throughout] 08/20/20 08/20/20 08/20/20 12:30 12:45 13:00 Temperature Pulse Rate 91 H 91 H 94 H Pulse Rate [ Anterior Bilateral Throughout] Pulse Rate [ From Monitor] Respiratory 26 H 27 H 23 Rate Respiratory Rate [Anterior Bilateral Throughout] Blood Pressure 133/80 124/77 124/82 O2 Sat by Pulse 99 98 99 Oximetry O2 Sat by Pulse Oximetry [ Anterior Bilateral Throughout] 08/20/20 08/20/20 08/20/20 13:15 13:30 13:45 Temperature Pulse Rate 93 H 101 H 112 H Pulse Rate [ Anterior Bilateral Throughout] Pulse Rate [ From Monitor] Respiratory 25 H 32 H 28 H Rate Respiratory Rate [Anterior Bilateral Throughout] Blood Pressure 124/73 123/81 125/78 O2 Sat by Pulse 92 88 95 Oximetry O2 Sat by Pulse Oximetry [ Anterior Bilateral Throughout] 08/20/20 08/20/20 08/20/20 13:50 14:00 14:09 Temperature 97.6 F Pulse Rate 112 H 92 H Pulse Rate [ Anterior Bilateral Throughout] Pulse Rate [ From Monitor] Respiratory 26 H 21 Rate Respiratory Rate [Anterior Bilateral Throughout] Blood Pressure 125/78 119/72 O2 Sat by Pulse 100 100 Oximetry O2 Sat by Pulse 100 Oximetry [ Anterior Bilateral Throughout] 08/20/20 08/20/20 08/20/20 14:15 14:30 14:45 Temperature Pulse Rate 90 94 H 98 H Pulse Rate [ Anterior Bilateral Throughout] Pulse Rate [ From Monitor] Respiratory 23 28 H 27 H Rate Respiratory Rate [Anterior Bilateral Throughout] Blood Pressure 112/79 127/82 114/77 O2 Sat by Pulse 99 100 Oximetry O2 Sat by Pulse Oximetry [ Anterior Bilateral Throughout] 08/20/20 08/20/20 08/20/20 15:00 15:15 15:30 Temperature Pulse Rate 92 H 97 H 89 Pulse Rate [ Anterior Bilateral Throughout] Pulse Rate [ From Monitor] Respiratory 26 H 29 H 26 H Rate Respiratory Rate [Anterior Bilateral Throughout] Blood Pressure 113/76 107/78 105/78 O2 Sat by Pulse 100 100 Oximetry O2 Sat by Pulse Oximetry [ Anterior Bilateral Throughout] 08/20/20 08/20/20 08/20/20 15:45 16:00 16:15 Temperature Pulse Rate 94 H 94 H 91 H Pulse Rate [ Anterior Bilateral Throughout] Pulse Rate [ 88 From Monitor] Respiratory 27 H 29 H 29 H Rate Respiratory Rate [Anterior Bilateral Throughout] Blood Pressure 125/75 122/78 116/77 O2 Sat by Pulse 100 94 90 Oximetry O2 Sat by Pulse Oximetry [ Anterior Bilateral Throughout] 08/20/20 08/20/20 08/20/20 16:30 16:45 17:00 Temperature Pulse Rate 92 H 88 82 Pulse Rate [ Anterior Bilateral Throughout] Pulse Rate [ From Monitor] Respiratory 28 H 27 H 29 H Rate Respiratory Rate [Anterior Bilateral Throughout] Blood Pressure 117/72 108/75 116/79 O2 Sat by Pulse 99 100 Oximetry O2 Sat by Pulse Oximetry [ Anterior Bilateral Throughout] 08/20/20 08/20/20 08/20/20 17:09 17:15 17:24 Temperature 97.8 F Pulse Rate 83 83 84 Pulse Rate [ Anterior Bilateral Throughout] Pulse Rate [ From Monitor] Respiratory 28 H 22 Rate Respiratory Rate [Anterior Bilateral Throughout] Blood Pressure 116/79 125/74 125/74 O2 Sat by Pulse 100 Oximetry O2 Sat by Pulse 100 Oximetry [ Anterior Bilateral Throughout] 08/20/20 08/20/20 08/20/20 17:30 17:45 18:00 Temperature Pulse Rate 99 H 91 H 90 Pulse Rate [ Anterior Bilateral Throughout] Pulse Rate [ From Monitor] Respiratory 17 21 28 H Rate Respiratory Rate [Anterior Bilateral Throughout] Blood Pressure 118/70 120/71 120/75 O2 Sat by Pulse 80 L 97 98 Oximetry O2 Sat by Pulse Oximetry [ Anterior Bilateral Throughout] 08/20/20 08/20/20 08/20/20 18:15 19:12 19:13 Temperature Pulse Rate 100 H Pulse Rate [ 92 H Anterior Bilateral Throughout] Pulse Rate [ From Monitor] Respiratory 33 H Rate Respiratory 22 Rate [Anterior Bilateral Throughout] Blood Pressure 120/77 O2 Sat by Pulse 94 98 Oximetry O2 Sat by Pulse Oximetry [ Anterior Bilateral Throughout] 08/20/20 20:00 Temperature 98.2 F Pulse Rate Pulse Rate [ Anterior Bilateral Throughout] Pulse Rate [ From Monitor] Respiratory Rate Respiratory Rate [Anterior Bilateral Throughout] Blood Pressure O2 Sat by Pulse Oximetry O2 Sat by Pulse Oximetry [ Anterior Bilateral Throughout] Constitutional: alert, other (obese, critically ill on ventilator) Eyes: non-icteric ENT: oropharynx moist Neck: supple Effort: normal Ascultation: Bilateral: diminished breath sounds Cardiovascular: regular rate and rhythm (no mrg) Gastrointestinal: normoactive bowel sounds, soft, non-tender, non-distended Integumentary: normal Extremities: no cyanosis, no edema Neurologic: normal mental status, non-focal exam Psychiatric: mood appropriate, affect normal CBC and BMP: 08/19/20 04:23 08/19/20 04:23 ABG, PT/INR, D-dimer: PT/INR, D-dimer D-Dimer > 50496 ng/mlDDU (0-234) H 08/19/20 16:58 Abnormal lab findings: Abnormal Labs 08/15/20 08/15/20 08/15/20 17:01 17:01 17:01 RBC Hgb Hct MCH RDW 15.8 H Lymph % (Auto) 7.4 L Lymph # (Auto) 0.7 L Seg Neutrophils % 85.1 H Seg Neuts % (Manual) Lymphocytes % (Manual) Seg Neutrophils # 7.9 H Lymphocytes # (Manual) D-Dimer 1750.12 H Sodium Potassium 5.1 H Chloride 97.1 L Carbon Dioxide BUN 67 H Creatinine 4.8 H Glucose 101 H POC Glucose Hemoglobin A1c Calcium Phosphorus Ferritin AST 53 H Lactate Dehydrogenase C-Reactive Protein Total Protein Albumin 3.4 L PTH Intact Ur Specific [place] Urine WBC (Auto) U Epithel Cells (Auto) Urine Creatinine Urine Total Protein Coronavirus (PCR) 08/15/20 08/15/20 08/15/20 17:01 17:01 17:01 RBC Hgb Hct MCH RDW Lymph % (Auto) Lymph # (Auto) Seg Neutrophils % Seg Neuts % (Manual) Lymphocytes % (Manual) Seg Neutrophils # Lymphocytes # (Manual) D-Dimer Sodium Potassium Chloride Carbon Dioxide BUN Creatinine Glucose 101 H POC Glucose Hemoglobin A1c Calcium Phosphorus Ferritin 667.2 H AST Lactate Dehydrogenase 606 H 567 H C-Reactive Protein 4.60 H 6.30 H Total Protein Albumin PTH Intact Ur Specific [place] Urine WBC (Auto) U Epithel Cells (Auto) Urine Creatinine Urine Total Protein Coronavirus (PCR) 08/16/20 08/16/20 08/16/20 04:32 04:32 04:32 RBC Hgb Hct MCH 27 L RDW 15.9 H Lymph % (Auto) 12.6 L Lymph # (Auto) 0.8 L Seg Neutrophils % 83.7 H Seg Neuts % (Manual) Lymphocytes % (Manual) Seg Neutrophils # Lymphocytes # (Manual) D-Dimer Sodium 136 L Potassium 6.7 H* D Chloride Carbon Dioxide BUN 78 H Creatinine 6.2 H Glucose 223 H POC Glucose Hemoglobin A1c 7.6 H Calcium 7.8 L Phosphorus Ferritin AST 47 H Lactate Dehydrogenase C-Reactive Protein Total Protein 5.8 L D Albumin 3.1 L PTH Intact Ur Specific [place] Urine WBC (Auto) U Epithel Cells (Auto) Urine Creatinine Urine Total Protein Coronavirus (PCR) 08/16/20 08/16/20 08/16/20 17:01 17:05 21:41 RBC Hgb Hct MCH RDW Lymph % (Auto) Lymph # (Auto) Seg Neutrophils % Seg Neuts % (Manual) Lymphocytes % (Manual) Seg Neutrophils # Lymphocytes # (Manual) D-Dimer Sodium Potassium Chloride Carbon Dioxide BUN 93 H Creatinine 7.7 H Glucose 228 H POC Glucose 150 H 204 H Hemoglobin A1c Calcium Phosphorus Ferritin AST Lactate Dehydrogenase C-Reactive Protein Total Protein Albumin PTH Intact Ur Specific [place] Urine WBC (Auto) U Epithel Cells (Auto) Urine Creatinine Urine Total Protein Coronavirus (PCR) 08/16/20 08/17/20 08/17/20 Unknown 07:31 07:31 RBC Hgb Hct MCH 27 L RDW 16.0 H Lymph % (Auto) 4.2 L Lymph # (Auto) 0.4 L Seg Neutrophils % 90.0 H Seg Neuts % (Manual) Lymphocytes % (Manual) Seg Neutrophils # 8.8 H Lymphocytes # (Manual) D-Dimer Sodium Potassium 5.8 H D Chloride Carbon Dioxide 20 L BUN 103 H Creatinine 9.0 H Glucose 219 H POC Glucose Hemoglobin A1c Calcium 7.9 L Phosphorus Ferritin AST Lactate Dehydrogenase C-Reactive Protein Total Protein Albumin PTH Intact Ur Specific [place] Urine WBC (Auto) U Epithel Cells (Auto) Urine Creatinine Urine Total Protein Coronavirus (PCR) Positive A 08/17/20 08/17/20 08/17/20 07:44 09:35 09:35 RBC Hgb Hct MCH RDW Lymph % (Auto) Lymph # (Auto) Seg Neutrophils % Seg Neuts % (Manual) Lymphocytes % (Manual) Seg Neutrophils # Lymphocytes # (Manual) D-Dimer Sodium Potassium Chloride Carbon Dioxide BUN Creatinine Glucose POC Glucose 188 H Hemoglobin A1c Calcium Phosphorus 5.90 H Ferritin AST Lactate Dehydrogenase C-Reactive Protein Total Protein Albumin PTH Intact 452.6 H Ur Specific [place] Urine WBC (Auto) U Epithel Cells (Auto) Urine Creatinine Urine Total Protein Coronavirus (PCR) 08/17/20 08/17/20 08/17/20 11:23 16:38 17:45 RBC Hgb Hct MCH RDW Lymph % (Auto) Lymph # (Auto) Seg Neutrophils % Seg Neuts % (Manual) Lymphocytes % (Manual) Seg Neutrophils # Lymphocytes # (Manual) D-Dimer Sodium Potassium Chloride Carbon Dioxide BUN Creatinine Glucose POC Glucose 205 H 212 H Hemoglobin A1c Calcium Phosphorus Ferritin AST Lactate Dehydrogenase C-Reactive Protein Total Protein Albumin PTH Intact Ur Specific [place] 1.039 H Urine WBC (Auto) 32.0 H U Epithel Cells (Auto) 44.0 H Urine Creatinine Urine Total Protein Coronavirus (PCR) 08/17/20 08/17/20 08/18/20 17:45 21:39 08:00 RBC Hgb Hct MCH RDW Lymph % (Auto) Lymph # (Auto) Seg Neutrophils % Seg Neuts % (Manual) Lymphocytes % (Manual) Seg Neutrophils # Lymphocytes # (Manual) D-Dimer Sodium Potassium Chloride Carbon Dioxide BUN Creatinine Glucose POC Glucose 206 H 229 H Hemoglobin A1c Calcium Phosphorus Ferritin AST Lactate Dehydrogenase C-Reactive Protein Total Protein Albumin PTH Intact Ur Specific [place] Urine WBC (Auto) U Epithel Cells (Auto) Urine Creatinine 248.0 H Urine Total Protein 196 H Coronavirus (PCR) 08/18/20 08/18/20 08/18/20 08:36 08:36 11:00 RBC 3.64 L Hgb 10.0 L Hct MCH RDW 15.8 H Lymph % (Auto) 5.9 L Lymph # (Auto) 0.5 L Seg Neutrophils % 87.3 H Seg Neuts % (Manual) Lymphocytes % (Manual) Seg Neutrophils # Lymphocytes # (Manual) D-Dimer Sodium 135 L D Potassium Chloride 95.8 L Carbon Dioxide 20 L BUN 84 H Creatinine 8.4 H Glucose 262 H POC Glucose 238 H Hemoglobin A1c Calcium 7.5 L Phosphorus Ferritin AST Lactate Dehydrogenase C-Reactive Protein Total Protein 6.1 L Albumin 2.5 L PTH Intact Ur Specific [place] Urine WBC (Auto) U Epithel Cells (Auto) Urine Creatinine Urine Total Protein Coronavirus (PCR) 08/18/20 08/18/20 08/19/20 16:14 21:52 04:23 RBC 3.53 L Hgb 9.5 L Hct 30.0 L MCH 27 L RDW 15.6 H Lymph % (Auto) Lymph # (Auto) Seg Neutrophils % Seg Neuts % (Manual) 84.0 H Lymphocytes % (Manual) 9.0 L Seg Neutrophils # Lymphocytes # (Manual) 0.5 L D-Dimer Sodium Potassium Chloride Carbon Dioxide BUN Creatinine Glucose POC Glucose 248 H 303 H Hemoglobin A1c Calcium Phosphorus Ferritin AST Lactate Dehydrogenase C-Reactive Protein Total Protein Albumin PTH Intact Ur Specific [place] Urine WBC (Auto) U Epithel Cells (Auto) Urine Creatinine Urine Total Protein Coronavirus (PCR) 08/19/20 08/19/20 08/19/20 04:23 06:44 11:53 RBC Hgb Hct MCH RDW Lymph % (Auto) Lymph # (Auto) Seg Neutrophils % Seg Neuts % (Manual) Lymphocytes % (Manual) Seg Neutrophils # Lymphocytes # (Manual) D-Dimer Sodium Potassium Chloride 97.2 L Carbon Dioxide BUN 86 H Creatinine 9.2 H Glucose 271 H POC Glucose 213 H 266 H Hemoglobin A1c Calcium 7.5 L Phosphorus Ferritin AST Lactate Dehydrogenase C-Reactive Protein Total Protein 5.8 L Albumin 2.5 L PTH Intact Ur Specific [place] Urine WBC (Auto) U Epithel Cells (Auto) Urine Creatinine Urine Total Protein Coronavirus (PCR) 08/19/20 08/19/20 08/19/20 16:58 16:58 16:58 RBC Hgb Hct MCH RDW Lymph % (Auto) Lymph # (Auto) Seg Neutrophils % Seg Neuts % (Manual) Lymphocytes % (Manual) Seg Neutrophils # Lymphocytes # (Manual) D-Dimer > 38431 H Sodium Potassium Chloride Carbon Dioxide BUN Creatinine Glucose POC Glucose Hemoglobin A1c Calcium Phosphorus Ferritin 1043.0 H AST Lactate Dehydrogenase 721 H C-Reactive Protein 3.00 H Total Protein Albumin PTH Intact Ur Specific [place] Urine WBC (Auto) U Epithel Cells (Auto) Urine Creatinine Urine Total Protein Coronavirus (PCR) 08/19/20 08/19/20 08/20/20 17:18 22:53 06:38 RBC Hgb Hct MCH RDW Lymph % (Auto) Lymph # (Auto) Seg Neutrophils % Seg Neuts % (Manual) Lymphocytes % (Manual) Seg Neutrophils # Lymphocytes # (Manual) D-Dimer Sodium Potassium Chloride Carbon Dioxide BUN Creatinine Glucose POC Glucose 223 H 273 H 268 H Hemoglobin A1c Calcium Phosphorus Ferritin AST Lactate Dehydrogenase C-Reactive Protein Total Protein Albumin PTH Intact Ur Specific [place] Urine WBC (Auto) U Epithel Cells (Auto) Urine Creatinine Urine Total Protein Coronavirus (PCR) 08/20/20 08/20/20 08/20/20 08:21 11:47 15:46 RBC Hgb Hct MCH RDW Lymph % (Auto) Lymph # (Auto) Seg Neutrophils % Seg Neuts % (Manual) Lymphocytes % (Manual) Seg Neutrophils # Lymphocytes # (Manual) D-Dimer Sodium Potassium Chloride Carbon Dioxide BUN Creatinine Glucose POC Glucose 264 H 288 H 262 H Hemoglobin A1c Calcium Phosphorus Ferritin AST Lactate Dehydrogenase C-Reactive Protein Total Protein Albumin PTH Intact Ur Specific [place] Urine WBC (Auto) U Epithel Cells (Auto) Urine Creatinine Urine Total Protein Coronavirus (PCR) Chest x-ray: report reviewed
[2020-08-21] MEDS: ALBUTEROL 2.5 MG/3 ML NEBU IH SCH ×4 (04:07→20:49)
[2020-08-21] MEDS: HEPARIN 5,000 UNIT/1 ML VIAL SUB-Q SCH ×3 (06:34→21:21)
--- NOTE | 2020-08-21 08:54 | Progress Note ---
Subjective Principal diagnosis: Acute respiratory failure Interval history: Patient was seen today for follow-up of multiple renal related issues, around 12:30 PM patient remains critically ill in ICU setting, she has been initiated on renal replacement therapy during this admission due to acute kidney injury She is currently being followed by Dr. Rivers her baseline creatinine is under 2 as of June 2020 yesterday's dialysis went very well Events of 24 hours vitals labs intake output medications were reviewed Past medical history: Reviewed Family history: Reviewed Social history: Reviewed Allergies: Reviewed Physical examination: reviewed from hospital medicine service chart, Due to ongoing pandemic and to reduce the risk of transmission cross infection limited availability of full PPD patient was not physically examined today But significant findings were reviewed from patient's chart Labs and x-rays: Reviewed from today Assessment and plan #acute kidney injury: has had hemodialysis yesterday with a low flow that she tolerated very well prior to that she has had issues with hypotension and inab ility to tolerate dialysis Most likely etiology of her renal failure appears to be due to acute tubular necrosis Renal care plan has been discussed with her sister at length who has been explained about the severity of her illness and multiorgan problems Will need to be reevaluated tomorrow morning, for dialysis needs #Has underlying chronic kidney disease her baseline creatinine is around 1.7-[address] Rivers's office I have reviewed her record #Respiratory failure resulting from Covid 19 pneumonia currently being followed by pulmonary service #Her bilateral pulmonary infiltrates appeared to be mostly resulting from Covid 19 pneumonia, patient does not tolerate ultrafiltration very well and hence will need to, do very judicious ultrafiltration depending on her I/O Covid 19 viral pneumonia with ARDS like picture, patient has multiorgan failure, she will need ongoing renal replacement therapy as tolerated for now #Will follow up on a daily basis if she will need to be dialyzed tomorrow again depending on her tolerance #Covid 19 infection, Likely has contributed to worsening of her renal failure time spent in critical care setting 35 minutes We'll continue to follow and make recommendation for renal standpoint Objective - Vital Signs Vital signs: Vital Signs - 12hr 08/20/20 08/20/20 08/20/20 21:00 22:00 23:00 Temperature Pulse Rate 93 H 94 H 93 H Pulse Rate [ Anterior Bilateral Throughout] Respiratory 29 H 22 27 H Rate Respiratory Rate [Anterior Bilateral Throughout] Blood Pressure 111/56 116/71 105/65 O2 Sat by Pulse 95 Oximetry 08/20/20 08/21/20 08/21/20 23:09 00:00 00:53 Temperature 98.8 F Pulse Rate 86 85 Pulse Rate [ Anterior Bilateral Throughout] Respiratory 24 Rate Respiratory Rate [Anterior Bilateral Throughout] Blood Pressure 108/70 O2 Sat by Pulse 95 93 Oximetry 08/21/20 08/21/20 08/21/20 01:00 02:00 03:01 Temperature Pulse Rate 86 84 90 Pulse Rate [ Anterior Bilateral Throughout] Respiratory 23 26 H 12 Rate Respiratory Rate [Anterior Bilateral Throughout] Blood Pressure 94/65 100/64 94/74 O2 Sat by Pulse 93 92 91 Oximetry 08/21/20 08/21/20 08/21/20 04:00 05:00 06:00 Temperature 98.4 F Pulse Rate 91 H 82 75 Pulse Rate [ Anterior Bilateral Throughout] Respiratory 28 H 24 25 H Rate Respiratory Rate [Anterior Bilateral Throughout] Blood Pressure 95/61 104/59 95/55 O2 Sat by Pulse 94 94 96 Oximetry 08/21/20 08:04 Temperature Pulse Rate Pulse Rate [ 88 Anterior Bilateral Throughout] Respiratory Rate Respiratory 18 Rate [Anterior Bilateral Throughout] Blood Pressure O2 Sat by Pulse 94 Oximetry - Lab 08/19/20 04:23 08/19/20 04:23 Most recent lab results Calcium 7.5 mg/dL (8.4-10.2) L 08/19/20 04:23 Phosphorus 5.90 mg/dL (2.5-4.5) H 08/17/20 09:35 Urine Creatinine 248.0 mg/dL (0.1-20.0) H 08/17/20 17:45 Urine Total Protein 196 mg/dL (5-11.8) H 08/17/20 17:45 Medications & Allergies - Medications Allergies/Adverse Reactions: Allergies gabapentin [From Neurontin] Allergy (Verified 08/15/20 17:25) Unknown rosuvastatin calcium [From Crestor] Allergy (Verified 08/15/20 17:25) Rash fluticasone propionate [From Advair Diskus] Adverse Reaction (Verified 08/15/20 17:25) Headache salmeterol xinafoate [From Advair Diskus] Adverse Reaction (Verified 08/15/20 17:25) Headache IV DYE Adverse Reaction (Uncoded 08/15/20 17:25) Itching Home Medications: Home Medications Medication Instructions Recorded Confirmed Last Taken Type Colchicine [Colcrys] 0.6 mg PO DAILY 08/15/20 08/15/20 Unknown History Cyanocobalamin (Vitamin B-12) 1,000 mcg IJ QMONTH 08/15/20 08/15/20 Unknown History [Physicians Ez Use B-12] Ergocalciferol [Vitamin D2] 1 cap PO QWEEK 08/15/20 08/15/20 Unknown History Ezetimibe/Simvastatin 1 each PO DAILY 08/15/20 08/15/20 Unknown History [Ezetimibe-Simvastatin 10-20 mg] Famotidine [Pepcid] 40 mg PO DAILY 08/15/20 08/15/20 Unknown History Furosemide [Lasix] 40 mg PO BID 08/15/20 08/15/20 Unknown History HYDROcodone/APAP 5-325 [[place] 1 each PO Q6HR PRN 08/15/20 08/15/20 Unknown History 5/325] Linagliptin [Tradjenta] 5 mg PO QDAY 08/15/20 08/15/20 Unknown History Omeprazole 40 mg PO DAILY 08/15/20 08/15/20 Unknown History Potassium Chloride [K-Dur] 20 meq PO BID 08/15/20 08/15/20 Unknown History Valsartan [Diovan] 160 mg PO QDAY 08/15/20 08/15/20 Unknown History allopurinoL [Zyloprim] 200 mg PO DAILY 08/15/20 08/15/20 Unknown History carvediloL [Coreg] 3.125 mg PO BID 08/15/20 08/15/20 Unknown History Albuterol Sulfate [Proair 90 mcg INHALATION Q4H PRN 08/17/20 08/17/20 Unknown History Digihaler] Spiriva 2.5 mcg INHALATION DAILY 08/17/20 08/17/20 Unknown History Symbicort 160-4.5 Mcg Inhaler 160 mcg INHALATION BID 08/17/20 08/17/20 Unknown History Active Medications: Generic Name Dose Route Start Last Admin Trade Name Freq PRN Reason Stop Dose Admin Acetaminophen 650 mg 08/15/20 22:16 08/19/20 01:17 Acetaminophen 325 Mg Tab PO 650 mg Q4H PRN Administration Pain MILD(1-3)/Fever >100.5/TELLO Hydrocodone Bitart/Acetaminophen 1 each 08/15/20 22:06 08/20/20 21:43 Hydrocodone/Acetaminophen 5-325 Mg Tab PO 1 each Q6HR PRN Administration Pain, Moderate (4-6) Albuterol 2.5 mg 08/17/20 19:26 08/21/20 08:04 Albuterol 2.5 Mg/3 Ml Nebu IH 2.5 mg Q6HRT SYLVAIN Administration Ascorbic Acid 1,000 mg 08/15/20 23:00 08/20/20 21:14 Ascorbic Acid 500 Mg Tab PO 1,000 mg BID SYLVAIN Administration Calcitriol 0.25 mcg 08/18/20 10:00 08/20/20 09:54 Calcitriol 0.25 Mcg Cap PO 0.25 mcg QDAY SYLVAIN Administration Colchicine 0.6 mg 08/16/20 10:00 08/20/20 09:54 Colchicine 0.6 Mg Tab PO 0.6 mg QOD SYLVAIN Administration Ezetimibe 10 mg 08/16/20 10:00 08/20/20 09:54 Ezetimibe 10 Mg Tab PO 10 mg DAILY SYLVAIN Administration Heparin Sodium (Porcine) 5,000 unit 08/19/20 14:00 08/21/20 06:34 Heparin 5,000 Unit/1 Ml Vial SUB-Q 5,000 unit Q8HR SYLVAIN Administration Hydromorphone HCl 0.5 mg 08/15/20 22:16 Hydromorphone 1 Mg/1 Ml Inj IV Q3H PRN Pain , Severe (7-10) Dexamethasone 20 mg/ Sodium 55 mls @ 100 mls/hr 08/18/20 15:00 08/20/20 21:14 Chloride IV 08/23/20 14:59 100 mls/hr Q12HR SYLVAIN Administration Norepinephrine 4 mg in 250 mls @ 7.5 mls/hr 08/19/20 10:00 Levophed Drip 4 Mg/Ns 250 Ml IV TITR SYLVAIN Protocol 2 MCG/MIN Sodium Chloride 100 mls @ 999 mls/hr 08/20/20 12:00 Nacl 0.9% IV SARAI PRN Hypotension Insulin Glargine 15 units 08/21/20 08:00 Insulin Glargine 100 Units/Ml SUB-Q QAMDIAB SYLVAIN Insulin Human Lispro 0 unit 08/18/20 13:23 08/20/20 21:43 Insulin Lispro 100 Unit/Ml SUB-Q 6 unit ACHS SYLVAIN Administration Protocol Linagliptin 5 mg 08/16/20 10:00 08/20/20 12:41 Linagliptin 5 Mg Tab PO Not Given QDAY SYLVAIN Metoclopramide HCl 5 mg 08/15/20 22:37 Metoclopramide 10 Mg/2 Ml Inj IV Q6H PRN Nausea And Vomiting Multivit/Ca Carb/B Cmplx/FA/Prenat 1 cap 08/18/20 10:00 08/20/20 09:54 Folic Acid/Vit B Comp W-C 1 Mg (Renal Caps) PO 1 cap DAILY SYLVAIN Administration Ondansetron HCl 4 mg 08/15/20 22:16 Ondansetron 4 Mg/2 Ml Inj IV Q8H PRN Nausea And Vomiting Oxycodone/Acetaminophen 1 tab 08/15/20 22:16 08/18/20 09:58 Oxycodone /Acetaminophen 5-325mg Tab PO 1 tab Q6H PRN Administration Pain, Moderate (4-6) Pantoprazole Sodium 40 mg 08/16/20 10:00 08/20/20 09:54 Pantoprazole 40 Mg Tab PO 40 mg DAILY SYLVAIN Administration Pravastatin Sodium 40 mg 08/16/20 10:00 08/20/20 09:55 Pravastatin 40 Mg Tab PO 40 mg DAILY SYLVAIN Administration Pseudoephedrine/Acetam/Chlorphenir 10 ml 08/18/20 10:30 08/18/20 17:52 Guaifenesin/Codeine 100-10mg Oral Liqd 5 Ml PO 10 ml Q4H PRN Administration Cough Sodium Chloride 10 ml 08/15/20 23:00 08/20/20 21:14 Sodium Chloride 0.9% 10 Ml Flush Syringe IV 10 ml BID SYLVAIN Administration Sodium Chloride 10 ml 08/15/20 22:16 Sodium Chloride 0.9% 10 Ml Flush Syringe IV PRN PRN LINE FLUSH Zinc Sulfate 220 mg 08/15/20 23:00 08/20/20 21:15 Zinc Sulfate 220 Mg Cap PO 220 mg BID SYLVAIN Administration
[2020-08-21] MEDS: INSULIN LISPRO 100 UNIT/ML SUB-Q SCH ×4 (09:12→21:47)
[2020-08-21] MEDS: INSULIN GLARGINE 100 UNITS/ML SUB-Q SCH (09:13)
[2020-08-21] MEDS: EZETIMIBE 10 MG TAB PO SCH (09:14)
[2020-08-21] MEDS: ZINC SULFATE 220 MG CAP PO SCH ×2 (09:14→21:21)
[2020-08-21] MEDS: CALCITRIOL 0.25 MCG CAP PO SCH (09:14)
[2020-08-21] MEDS: LINAGLIPTIN 5 MG TAB PO SCH (09:14)
[2020-08-21] MEDS: FOLIC ACID/VIT B COMP W-C 1 MG (RENAL CAPS) PO SCH (09:14)
[2020-08-21] MEDS: dexAMETHasone 20 MG in SODIUM CHLORIDE 0.9% 50 ML IV SCH ×2 (09:14→21:21)
[2020-08-21] MEDS: ASCORBIC ACID 500 MG TAB PO SCH ×2 (09:15→21:21)
[2020-08-21] MEDS: PRAVASTATIN 40 MG TAB PO SCH (09:15)
[2020-08-21] MEDS: HYDROcodone/ACETAMINOPHEN 5-325 MG TAB PO PRN ×2 (09:19→17:57)
--- NOTE | 2020-08-21 10:13 | XRay Report ---
CHEST 1 VIEW 08/21/2020 9:15 AM INDICATION / CLINICAL INFORMATION: covid-19 pneumonia, worsening hypoxia. COMPARISON: 2 views of the chest from 08/15/2020. FINDINGS: The patient is rotated to the left. SUPPORT DEVICES: Interval placement of a right internal jugular vein PermCath, terminating over the c avoatrial junction. HEART / MEDIASTINUM: Stable. LUNGS / PLEURA: Similarly reduced lung volumes. Improved aeration of the lungs with residual generali zed bilateral pulmonary opacities. No significant pleural effusion. No pneumothorax. ADDITIONAL FINDINGS: No significant additional findings. IMPRESSION: 1. Improved aeration of the lungs. 2. Additional findings as above. Signer Name: Moshe Austin MD Signed: 08/21/2020 10:08 AM Workstation Name: [id number]
[2020-08-21] MEDS: PANTOPRAZOLE 40 MG TAB PO SCH (12:24)
--- NOTE | 2020-08-21 14:16 | Progress Note ---
Assessment and Plan - Patient Problems (1) Acute respiratory failure with hypoxia Current Visit: Yes Status: Acute Plan to address problem: Coronavirus PCR positive Patient on high flow nasal cannula oxygen (2) Person under investigation for severe acute respiratory syndrome coronavirus 2 (SARS-CoV-2) infection Current Visit: Yes Status: Acute Plan to address problem: Coronavirus PCR positive (3) Bilateral pneumonia Current Visit: Yes Status: Acute Plan to address problem: On high flow nasal cannula oxygen Antibiotics stopped (4) Hypertension Current Visit: Yes Status: Chronic Qualifiers: Hypertension type: essential hypertension Qualified Code(s): I10 - Essential (primary) hypertension Plan to address problem: Continue antihypertensives and adjust medications (5) T2DM (type 2 diabetes mellitus) Current Visit: Yes Status: Chronic Qualifiers: Diabetes mellitus chcf insulin use: 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 (9) DVT prophylaxis Current Visit: Yes Status: Acute Plan to address problem: On heparin and GI prophylaxis Subjective Date of service: 08/21/20 Principal diagnosis: Acute respiratory failure Interval history: 64-year-old female with history of hypertension, diabetes, COPD and old CVA comes in for cough productive of yellow sputum and wheezing and headache and scratchy throat. Going on for 4 weeks since July 21. Symptoms have been progressive since July 21. Patient has took a course of Z-Bipin and steroids with no relief. Patient states that she requested a Covid test, insurance company and pressors positive after 3 days of testing today. Intermittent fever present. Exposure to coronavirus not known. Shortness of breath on exertion. 08/22/2020 Patient continues to be on high flow nasal cannula oxygen Intermittent hemodialysis Patient in ICU because of her high flow nasal cannula oxygen and hemodialysis Objective - Constitutional Vitals: Vital Signs - 12hr 08/21/20 08/21/20 08/21/20 03:01 04:00 05:00 Temperature 98.4 F Pulse Rate 90 91 H 82 Pulse Rate [ Anterior Bilateral Throughout] Respiratory 12 28 H 24 Rate Respiratory Rate [Anterior Bilateral Throughout] Blood Pressure 94/74 95/61 104/59 O2 Sat by Pulse 91 94 94 Oximetry 08/21/20 08/21/20 08/21/20 06:00 07:00 08:00 Temperature Pulse Rate 75 84 83 Pulse Rate [ Anterior Bilateral Throughout] Respiratory 25 H 24 24 Rate Respiratory Rate [Anterior Bilateral Throughout] Blood Pressure 95/55 102/63 99/66 O2 Sat by Pulse 96 93 94 Oximetry 08/21/20 08/21/20 08/21/20 08:04 09:00 10:00 Temperature Pulse Rate 85 96 H Pulse Rate [ 88 Anterior Bilateral Throughout] Respiratory 22 21 Rate Respiratory 18 Rate [Anterior Bilateral Throughout] Blood Pressure 100/72 122/71 O2 Sat by Pulse 94 94 93 Oximetry 08/21/20 08/21/20 08/21/20 11:00 12:00 13:00 Temperature Pulse Rate 107 H 109 H 104 H Pulse Rate [ Anterior Bilateral Throughout] Respiratory 17 20 29 H Rate Respiratory Rate [Anterior Bilateral Throughout] Blood Pressure 113/63 104/65 121/71 O2 Sat by Pulse 93 89 95 Oximetry General appearance: Present: no acute distress, well-nourished - EENT Eyes: PERRL, EOM intact ENT: hearing intact, clear oral mucosa Ears: bilateral: normal - Neck Neck: supple, normal ROM - Respiratory Respiratory effort: normal Respiratory: bilateral: CTA - Breasts Breasts: normal - Cardiovascular Heart rate: 78 Rhythm: regular Heart Sounds: Present: S1 & S2. Absent: gallop, rub Extremities: pulses intact, No edema, normal color, Full ROM - Gastrointestinal General gastrointestinal: Present: soft, non-tender, non-distended, normal bowel sounds - Genitourinary Female genitourinary: normal - Integumentary Integumentary: clear, warm, dry - Musculoskeletal Musculoskeletal: 1, strength equal bilaterally - Neurologic Neurologic: moves all extremities - Psychiatric Psychiatric: memory intact, appropriate mood/affect, intact judgment & insight - Labs CBC & Chem 7: 08/23/20 05:47 08/23/20 05:47 Labs: Abnormal lab results 08/20/20 08/20/20 08/21/20 Range/Units 15:46 21:33 07:46 POC Glucose 262 H 274 H 249 H (70-105) mg/dL 08/21/20 Range/Units 11:56 POC Glucose 227 H (70-105) mg/dL
--- NOTE | 2020-08-21 22:35 | Progress Note ---
Assessment and Plan Imp: 1. Covid-19 2. Viral pneumonia 3. ARDS 4. Acute respiratory failure 5. ANGELIQUE 6. HARPER 7. Morbid obesity Rec: 1. Wean HFNC to keep sats 88% or > 2. On Decadron per ID 3. Keep as dry as possible; HD per renal 4. Renal failure precludes Remdesivir 5. No COPD on office spirometry from 2019 6. DVT PPx 7. CXR prn 8. Prognosis guarded 9. Complex decision-making Plan of care reviewed with patient, she understands/agrees Subjective Date of service: 08/21/20 Principal diagnosis: Acute respiratory failure Interval history: No events. On HFNC. Awake, alert/oriented. SOB noted. Active Medications Acetaminophen (Acetaminophen 325 Mg Tab) 650 mg PO Q4H PRN PRN Reason: Pain MILD(1-3)/Fever >100.5/TELLO Last Admin: 08/19/20 01:17 Dose: 650 mg Documented by: Hydrocodone Bitart/Acetaminophen (Hydrocodone/Acetaminophen 5-325 Mg Tab) 1 each PO Q6HR PRN PRN Reason: Pain, Moderate (4-6) Last Admin: 08/21/20 17:57 Dose: 1 each Documented by: Albuterol (Albuterol 2.5 Mg/3 Ml Nebu) 2.5 mg IH Q6HRT [facility] Last Admin: 08/21/20 20:49 Dose: 2.5 mg Documented by: Ascorbic Acid (Ascorbic Acid 500 Mg Tab) 1,000 mg PO BID [facility] Last Admin: 08/21/20 21:21 Dose: 1,000 mg Documented by: Calcitriol (Calcitriol 0.25 Mcg Cap) 0.25 mcg PO QDAY [facility] Last Admin: 08/21/20 09:14 Dose: 0.25 mcg Documented by: Colchicine (Colchicine 0.6 Mg Tab) 0.6 mg PO QOD [facility] Last Admin: 08/20/20 09:54 Dose: 0.6 mg Documented by: Ezetimibe (Ezetimibe 10 Mg Tab) 10 mg PO DAILY [facility] Last Admin: 08/21/20 09:14 Dose: 10 mg Documented by: Heparin Sodium (Porcine) (Heparin 5,000 Unit/1 Ml Vial) 5,000 unit SUB-Q Q8HR [facility] Last Admin: 08/21/20 21:21 Dose: 5,000 unit Documented by: Hydromorphone HCl (Hydromorphone 1 Mg/1 Ml Inj) 0.5 mg IV Q3H PRN PRN Reason: Pain , Severe (7-10) Dexamethasone 20 mg/ Sodium (Chloride) 55 mls @ 100 mls/hr IV Q12HR [facility] Stop: 08/23/20 14:59 Last Admin: 08/21/20 21:21 Dose: 100 mls/hr Documented by: Norepinephrine (Levophed Drip 4 Mg/Ns 250 Ml) 4 mg in 250 mls @ 7.5 mls/hr IV TITR [facility]; Protocol Sodium Chloride (Nacl 0.9%) 100 mls @ 999 mls/hr IV SARAI PRN PRN Reason: Hypotension Insulin Glargine (Insulin Glargine 100 Units/Ml) 15 units SUB-Q QAMDIAB [facility] Last Admin: 08/21/20 09:13 Dose: 15 units Documented by: Insulin Human Lispro (Insulin Lispro 100 Unit/Ml) 0 unit SUB-Q ACHS [facility]; Protocol Last Admin: 08/21/20 21:47 Dose: 6 unit Documented by: Linagliptin (Linagliptin 5 Mg Tab) 5 mg PO QDAY [facility] Last Admin: 08/21/20 09:14 Dose: 5 mg Documented by: Metoclopramide HCl (Metoclopramide 10 Mg/2 Ml Inj) 5 mg IV Q6H PRN PRN Reason: Nausea And Vomiting Multivit/Ca Carb/B Cmplx/FA/Prenat (Folic Acid/Vit B Comp W-C 1 Mg (Renal Caps)) 1 cap PO DAILY [facility] Last Admin: 08/21/20 09:14 Dose: 1 cap Documented by: Ondansetron HCl (Ondansetron 4 Mg/2 Ml Inj) 4 mg IV Q8H PRN PRN Reason: Nausea And Vomiting Oxycodone/Acetaminophen (Oxycodone /Acetaminophen 5-325mg Tab) 1 tab PO Q6H PRN PRN Reason: Pain, Moderate (4-6) Last Admin: 08/18/20 09:58 Dose: 1 tab Documented by: Pantoprazole Sodium (Pantoprazole 40 Mg Tab) 40 mg PO DAILY [facility] Last Admin: 08/21/20 12:24 Dose: 40 mg Documented by: Pravastatin Sodium (Pravastatin 40 Mg Tab) 40 mg PO DAILY [facility] Last Admin: 08/21/20 09:15 Dose: 40 mg Documented by: Pseudoephedrine/Acetam/Chlorphenir (Guaifenesin/Codeine 100-10mg Oral Liqd 5 Ml) 10 ml PO Q4H PRN PRN Reason: Cough Last Admin: 08/18/20 17:52 Dose: 10 ml Documented by: Sodium Chloride (Sodium Chloride 0.9% 10 Ml Flush Syringe) 10 ml IV BID [facility] Last Admin: 08/21/20 21:20 Dose: 10 ml Documented by: Sodium Chloride (Sodium Chloride 0.9% 10 Ml Flush Syringe) 10 ml IV PRN PRN PRN Reason: LINE FLUSH Zinc Sulfate (Zinc Sulfate 220 Mg Cap) 220 mg PO BID [facility] Last Admin: 08/21/20 21:21 Dose: 220 mg Documented by: Objective Vital Signs - 12hr 08/21/20 08/21/20 08/21/20 11:00 12:00 13:00 Temperature 98.5 F Pulse Rate 107 H 109 H 104 H Pulse Rate [ Anterior Bilateral Throughout] Respiratory 17 20 29 H Rate Respiratory Rate [Anterior Bilateral Throughout] Blood Pressure 113/63 104/65 121/71 O2 Sat by Pulse 93 89 95 Oximetry 08/21/20 08/21/20 08/21/20 14:00 15:00 15:35 Temperature Pulse Rate 96 H 103 H Pulse Rate [ 105 H Anterior Bilateral Throughout] Respiratory 25 H 27 H Rate Respiratory 18 Rate [Anterior Bilateral Throughout] Blood Pressure 112/76 110/80 O2 Sat by Pulse 93 97 96 Oximetry 08/21/20 08/21/20 08/21/20 16:00 17:00 18:00 Temperature 98.4 F Pulse Rate 98 H 100 H 99 H Pulse Rate [ Anterior Bilateral Throughout] Respiratory 24 26 H 27 H Rate Respiratory Rate [Anterior Bilateral Throughout] Blood Pressure 125/79 119/75 137/72 O2 Sat by Pulse 97 97 98 Oximetry 08/21/20 08/21/20 08/21/20 19:00 19:57 20:00 Temperature 97.8 F Pulse Rate 95 H 94 H Pulse Rate [ Anterior Bilateral Throughout] Respiratory 24 27 H Rate Respiratory Rate [Anterior Bilateral Throughout] Blood Pressure 141/78 120/75 O2 Sat by Pulse 98 Oximetry 08/21/20 08/21/20 08/21/20 20:50 21:00 22:00 Temperature Pulse Rate 96 H 103 H Pulse Rate [ 106 H Anterior Bilateral Throughout] Respiratory 24 15 Rate Respiratory 18 Rate [Anterior Bilateral Throughout] Blood Pressure 140/81 128/77 O2 Sat by Pulse 88 Oximetry 08/21/20 22:21 Temperature Pulse Rate 95 H Pulse Rate [ Anterior Bilateral Throughout] Respiratory Rate Respiratory Rate [Anterior Bilateral Throughout] Blood Pressure O2 Sat by Pulse Oximetry Constitutional: alert, other (obese, critically ill on ventilator) Eyes: non-icteric ENT: oropharynx moist Neck: supple Effort: normal Ascultation: Bilateral: diminished breath sounds Cardiovascular: regular rate and rhythm (no mrg) Gastrointestinal: normoactive bowel sounds, soft, non-tender, non-distended Integumentary: normal Extremities: no cyanosis, no edema Neurologic: normal mental status, non-focal exam Psychiatric: mood appropriate, affect normal CBC and BMP: 08/19/20 04:23 08/19/20 04:23 ABG, PT/INR, D-dimer: PT/INR, D-dimer D-Dimer > 00544 ng/mlDDU (0-234) H 08/19/20 16:58 Abnormal lab findings: Abnormal Labs 08/15/20 08/15/20 08/15/20 17:01 17:01 17:01 RBC Hgb Hct MCH RDW 15.8 H Lymph % (Auto) 7.4 L Lymph # (Auto) 0.7 L Seg Neutrophils % 85.1 H Seg Neuts % (Manual) Lymphocytes % (Manual) Seg Neutrophils # 7.9 H Lymphocytes # (Manual) D-Dimer 1750.12 H Sodium Potassium 5.1 H Chloride 97.1 L Carbon Dioxide BUN 67 H Creatinine 4.8 H Glucose 101 H POC Glucose Hemoglobin A1c Calcium Phosphorus Ferritin AST 53 H Lactate Dehydrogenase C-Reactive Protein Total Protein Albumin 3.4 L PTH Intact Ur Specific Drain Urine WBC (Auto) U Epithel Cells (Auto) Urine Creatinine Urine Total Protein Coronavirus (PCR) 08/15/20 08/15/20 08/15/20 17:01 17:01 17:01 RBC Hgb Hct MCH RDW Lymph % (Auto) Lymph # (Auto) Seg Neutrophils % Seg Neuts % (Manual) Lymphocytes % (Manual) Seg Neutrophils # Lymphocytes # (Manual) D-Dimer Sodium Potassium Chloride Carbon Dioxide BUN Creatinine Glucose 101 H POC Glucose Hemoglobin A1c Calcium Phosphorus Ferritin 667.2 H AST Lactate Dehydrogenase 606 H 567 H C-Reactive Protein 4.60 H 6.30 H Total Protein Albumin PTH Intact Ur Specific Drain Urine WBC (Auto) U Epithel Cells (Auto) Urine Creatinine Urine Total Protein Coronavirus (PCR) 08/16/20 08/16/20 08/16/20 04:32 04:32 04:32 RBC Hgb Hct MCH 27 L RDW 15.9 H Lymph % (Auto) 12.6 L Lymph # (Auto) 0.8 L Seg Neutrophils % 83.7 H Seg Neuts % (Manual) Lymphocytes % (Manual) Seg Neutrophils # Lymphocytes # (Manual) D-Dimer Sodium 136 L Potassium 6.7 H* D Chloride Carbon Dioxide BUN 78 H Creatinine 6.2 H Glucose 223 H POC Glucose Hemoglobin A1c 7.6 H Calcium 7.8 L Phosphorus Ferritin AST 47 H Lactate Dehydrogenase C-Reactive Protein Total Protein 5.8 L D Albumin 3.1 L PTH Intact Ur Specific Drain Urine WBC (Auto) U Epithel Cells (Auto) Urine Creatinine Urine Total Protein Coronavirus (PCR) 08/16/20 08/16/20 08/16/20 17:01 17:05 21:41 RBC Hgb Hct MCH RDW Lymph % (Auto) Lymph # (Auto) Seg Neutrophils % Seg Neuts % (Manual) Lymphocytes % (Manual) Seg Neutrophils # Lymphocytes # (Manual) D-Dimer Sodium Potassium Chloride Carbon Dioxide BUN 93 H Creatinine 7.7 H Glucose 228 H POC Glucose 150 H 204 H Hemoglobin A1c Calcium Phosphorus Ferritin AST Lactate Dehydrogenase C-Reactive Protein Total Protein Albumin PTH Intact Ur Specific Drain Urine WBC (Auto) U Epithel Cells (Auto) Urine Creatinine Urine Total Protein Coronavirus (PCR) 08/16/20 08/17/20 08/17/20 Unknown 07:31 07:31 RBC Hgb Hct MCH 27 L RDW 16.0 H Lymph % (Auto) 4.2 L Lymph # (Auto) 0.4 L Seg Neutrophils % 90.0 H Seg Neuts % (Manual) Lymphocytes % (Manual) Seg Neutrophils # 8.8 H Lymphocytes # (Manual) D-Dimer Sodium Potassium 5.8 H D Chloride Carbon Dioxide 20 L BUN 103 H Creatinine 9.0 H Glucose 219 H POC Glucose Hemoglobin A1c Calcium 7.9 L Phosphorus Ferritin AST Lactate Dehydrogenase C-Reactive Protein Total Protein Albumin PTH Intact Ur Specific Drain Urine WBC (Auto) U Epithel Cells (Auto) Urine Creatinine Urine Total Protein Coronavirus (PCR) Positive A 08/17/20 08/17/20 08/17/20 07:44 09:35 09:35 RBC Hgb Hct MCH RDW Lymph % (Auto) Lymph # (Auto) Seg Neutrophils % Seg Neuts % (Manual) Lymphocytes % (Manual) Seg Neutrophils # Lymphocytes # (Manual) D-Dimer Sodium Potassium Chloride Carbon Dioxide BUN Creatinine Glucose POC Glucose 188 H Hemoglobin A1c Calcium Phosphorus 5.90 H Ferritin AST Lactate Dehydrogenase C-Reactive Protein Total Protein Albumin PTH Intact 452.6 H Ur Specific Drain Urine WBC (Auto) U Epithel Cells (Auto) Urine Creatinine Urine Total Protein Coronavirus (PCR) 08/17/20 08/17/20 08/17/20 11:23 16:38 17:45 RBC Hgb Hct MCH RDW Lymph % (Auto) Lymph # (Auto) Seg Neutrophils % Seg Neuts % (Manual) Lymphocytes % (Manual) Seg Neutrophils # Lymphocytes # (Manual) D-Dimer Sodium Potassium Chloride Carbon Dioxide BUN Creatinine Glucose POC Glucose 205 H 212 H Hemoglobin A1c Calcium Phosphorus Ferritin AST Lactate Dehydrogenase C-Reactive Protein Total Protein Albumin PTH Intact Ur Specific Drain 1.039 H Urine WBC (Auto) 32.0 H U Epithel Cells (Auto) 44.0 H Urine Creatinine Urine Total Protein Coronavirus (PCR) 08/17/20 08/17/20 08/18/20 17:45 21:39 08:00 RBC Hgb Hct MCH RDW Lymph % (Auto) Lymph # (Auto) Seg Neutrophils % Seg Neuts % (Manual) Lymphocytes % (Manual) Seg Neutrophils # Lymphocytes # (Manual) D-Dimer Sodium Potassium Chloride Carbon Dioxide BUN Creatinine Glucose POC Glucose 206 H 229 H Hemoglobin A1c Calcium Phosphorus Ferritin AST Lactate Dehydrogenase C-Reactive Protein Total Protein Albumin PTH Intact Ur Specific Drain Urine WBC (Auto) U Epithel Cells (Auto) Urine Creatinine 248.0 H Urine Total Protein 196 H Coronavirus (PCR) 08/18/20 08/18/20 08/18/20 08:36 08:36 11:00 RBC 3.64 L Hgb 10.0 L Hct MCH RDW 15.8 H Lymph % (Auto) 5.9 L Lymph # (Auto) 0.5 L Seg Neutrophils % 87.3 H Seg Neuts % (Manual) Lymphocytes % (Manual) Seg Neutrophils # Lymphocytes # (Manual) D-Dimer Sodium 135 L D Potassium Chloride 95.8 L Carbon Dioxide 20 L BUN 84 H Creatinine 8.4 H Glucose 262 H POC Glucose 238 H Hemoglobin A1c Calcium 7.5 L Phosphorus Ferritin AST Lactate Dehydrogenase C-Reactive Protein Total Protein 6.1 L Albumin 2.5 L PTH Intact Ur Specific Drain Urine WBC (Auto) U Epithel Cells (Auto) Urine Creatinine Urine Total Protein Coronavirus (PCR) 08/18/20 08/18/20 08/19/20 16:14 21:52 04:23 RBC 3.53 L Hgb 9.5 L Hct 30.0 L MCH 27 L RDW 15.6 H Lymph % (Auto) Lymph # (Auto) Seg Neutrophils % Seg Neuts % (Manual) 84.0 H Lymphocytes % (Manual) 9.0 L Seg Neutrophils # Lymphocytes # (Manual) 0.5 L D-Dimer Sodium Potassium Chloride Carbon Dioxide BUN Creatinine Glucose POC Glucose 248 H 303 H Hemoglobin A1c Calcium Phosphorus Ferritin AST Lactate Dehydrogenase C-Reactive Protein Total Protein Albumin PTH Intact Ur Specific Drain Urine WBC (Auto) U Epithel Cells (Auto) Urine Creatinine Urine Total Protein Coronavirus (PCR) 08/19/20 08/19/20 08/19/20 04:23 06:44 11:53 RBC Hgb Hct MCH RDW Lymph % (Auto) Lymph # (Auto) Seg Neutrophils % Seg Neuts % (Manual) Lymphocytes % (Manual) Seg Neutrophils # Lymphocytes # (Manual) D-Dimer Sodium Potassium Chloride 97.2 L Carbon Dioxide BUN 86 H Creatinine 9.2 H Glucose 271 H POC Glucose 213 H 266 H Hemoglobin A1c Calcium 7.5 L Phosphorus Ferritin AST Lactate Dehydrogenase C-Reactive Protein Total Protein 5.8 L Albumin 2.5 L PTH Intact Ur Specific Drain Urine WBC (Auto) U Epithel Cells (Auto) Urine Creatinine Urine Total Protein Coronavirus (PCR) 08/19/20 08/19/20 08/19/20 16:58 16:58 16:58 RBC Hgb Hct MCH RDW Lymph % (Auto) Lymph # (Auto) Seg Neutrophils % Seg Neuts % (Manual) Lymphocytes % (Manual) Seg Neutrophils # Lymphocytes # (Manual) D-Dimer > 76791 H Sodium Potassium Chloride Carbon Dioxide BUN Creatinine Glucose POC Glucose Hemoglobin A1c Calcium Phosphorus Ferritin 1043.0 H AST Lactate Dehydrogenase 721 H C-Reactive Protein 3.00 H Total Protein Albumin PTH Intact Ur Specific Drain Urine WBC (Auto) U Epithel Cells (Auto) Urine Creatinine Urine Total Protein Coronavirus (PCR) 08/19/20 08/19/20 08/20/20 17:18 22:53 06:38 RBC Hgb Hct MCH RDW Lymph % (Auto) Lymph # (Auto) Seg Neutrophils % Seg Neuts % (Manual) Lymphocytes % (Manual) Seg Neutrophils # Lymphocytes # (Manual) D-Dimer Sodium Potassium Chloride Carbon Dioxide BUN Creatinine Glucose POC Glucose 223 H 273 H 268 H Hemoglobin A1c Calcium Phosphorus Ferritin AST Lactate Dehydrogenase C-Reactive Protein Total Protein Albumin PTH Intact Ur Specific Drain Urine WBC (Auto) U Epithel Cells (Auto) Urine Creatinine Urine Total Protein Coronavirus (PCR) 08/20/20 08/20/20 08/20/20 08:21 11:47 15:46 RBC Hgb Hct MCH RDW Lymph % (Auto) Lymph # (Auto) Seg Neutrophils % Seg Neuts % (Manual) Lymphocytes % (Manual) Seg Neutrophils # Lymphocytes # (Manual) D-Dimer Sodium Potassium Chloride Carbon Dioxide BUN Creatinine Glucose POC Glucose 264 H 288 H 262 H Hemoglobin A1c Calcium Phosphorus Ferritin AST Lactate Dehydrogenase C-Reactive Protein Total Protein Albumin PTH Intact Ur Specific Drain Urine WBC (Auto) U Epithel Cells (Auto) Urine Creatinine Urine Total Protein Coronavirus (PCR) 08/20/20 08/21/20 08/21/20 21:33 07:46 11:56 RBC Hgb Hct MCH RDW Lymph % (Auto) Lymph # (Auto) Seg Neutrophils % Seg Neuts % (Manual) Lymphocytes % (Manual) Seg Neutrophils # Lymphocytes # (Manual) D-Dimer Sodium Potassium Chloride Carbon Dioxide BUN Creatinine Glucose POC Glucose 274 H 249 H 227 H Hemoglobin A1c Calcium Phosphorus Ferritin AST Lactate Dehydrogenase C-Reactive Protein Total Protein Albumin PTH Intact Ur Specific Drain Urine WBC (Auto) U Epithel Cells (Auto) Urine Creatinine Urine Total Protein Coronavirus (PCR) 08/21/20 08/21/20 17:19 21:34 RBC Hgb Hct MCH RDW Lymph % (Auto) Lymph # (Auto) Seg Neutrophils % Seg Neuts % (Manual) Lymphocytes % (Manual) Seg Neutrophils # Lymphocytes # (Manual) D-Dimer Sodium Potassium Chloride Carbon Dioxide BUN Creatinine Glucose POC Glucose 318 H 286 H Hemoglobin A1c Calcium Phosphorus Ferritin AST Lactate Dehydrogenase C-Reactive Protein Total Protein Albumin PTH Intact Ur Specific Drain Urine WBC (Auto) U Epithel Cells (Auto) Urine Creatinine Urine Total Protein Coronavirus (PCR) Chest x-ray: report reviewed, image reviewed (reduced lung volumes; bilateral infiltrates)
[2020-08-22] MEDS: ALBUTEROL 2.5 MG/3 ML NEBU IH SCH ×4 (02:09→22:46)
[2020-08-22] MEDS: HEPARIN 5,000 UNIT/1 ML VIAL SUB-Q SCH ×3 (05:21→22:04)
[2020-08-22] MEDS ORDERED: SODIUM CHLORIDE 0.9% 100 ML IV PRN (08:00)
[2020-08-22] MEDS: CALCITRIOL 0.25 MCG CAP PO SCH (09:02)
[2020-08-22] MEDS: FOLIC ACID/VIT B COMP W-C 1 MG (RENAL CAPS) PO SCH (09:02)
[2020-08-22] MEDS: ASCORBIC ACID 500 MG TAB PO SCH ×2 (09:02→22:04)
[2020-08-22] MEDS: LINAGLIPTIN 5 MG TAB PO SCH (09:02)
[2020-08-22] MEDS: PANTOPRAZOLE 40 MG TAB PO SCH (09:02)
[2020-08-22] MEDS: ZINC SULFATE 220 MG CAP PO SCH ×2 (09:02→22:04)
[2020-08-22] MEDS: EZETIMIBE 10 MG TAB PO SCH (09:02)
[2020-08-22] MEDS: PRAVASTATIN 40 MG TAB PO SCH (09:02)
[2020-08-22] MEDS: COLCHICINE 0.6 MG TAB PO SCH (09:03)
[2020-08-22] MEDS: INSULIN LISPRO 100 UNIT/ML SUB-Q SCH ×4 (09:03→22:05)
[2020-08-22] MEDS: INSULIN GLARGINE 100 UNITS/ML SUB-Q SCH (09:04)
[2020-08-22] MEDS: dexAMETHasone 20 MG in SODIUM CHLORIDE 0.9% 50 ML IV SCH ×2 (11:00→22:05)
--- NOTE | 2020-08-22 11:35 | Progress Note ---
Assessment and Plan 64 y/o female with acute respiratory failure thought secondary to COVID, found to be positive 08/22/20: HD per renal. Patient has questions about why she is requiring HD, please address with her if possible. Hopeful she will have several HD sessions back to back as I feel a lot of her most recent decline is from volume. COntinue High dose steroids but will extend out to 10 days. Increase lantus to help with sugars. Can likely be transferred to step down or back to the floor. 08/19/20: Ordered PICC line for use during HD if patient requires vasopressors. Most likely increase in oxygen secondary to volume from lack of appropriate HD secondary to hypotension. Will give a couple amps of bicarb to see if this will help with blood pressure and can wills off pressor use. Continue steroids. Agree with ID on increasing the dose. Guarded prognosis 08/18/20: Prone as tolerated during day and sleep prone at night. Continue sup plemental O2. Steroids for 10 days. Hold on nebs. Needs RT consult for documentation of oxygen therapy and requirements. 08/17/20: Found to be positive. Same recs as yesterday. Likely not a candidate for remdesivir given renal function. No nebulizer therapy, only inhaler therapy if and when needed. Continue supplemental O2 and proning is mcknight. Guarded prognosis given renal failure. 1. Follow up covid testing 2. Ok with current steroids 3. If patient brought in home inhalers, please allow pharmacy to verify and use them, no neb treatments 4. Prone during the day and and sleep prone at night as tolerated. Guarded prognosis. Subjective Date of service: 08/22/20 Principal diagnosis: Acute respiratory failure Interval history: Currently on HD. Stable. Still on HFNC at 40 and 70% but weaning. Remainder is negative. Objective Vital Signs - 12hr 08/22/20 08/22/20 08/22/20 00:00 00:35 01:00 Temperature 98.8 F 98.8 F Pulse Rate 89 80 Pulse Rate [ Anterior Bilateral Throughout] Pulse Rate [ From Monitor] Respiratory 24 23 Rate Respiratory Rate [Anterior Bilateral Throughout] Blood Pressure 135/76 111/65 O2 Sat by Pulse 97 95 Oximetry 08/22/20 08/22/20 08/22/20 02:00 02:07 02:13 Temperature Pulse Rate 79 Pulse Rate [ 80 Anterior Bilateral Throughout] Pulse Rate [ From Monitor] Respiratory 23 Rate Respiratory 24 Rate [Anterior Bilateral Throughout] Blood Pressure 111/59 O2 Sat by Pulse 92 95 Oximetry 08/22/20 08/22/20 08/22/20 03:00 03:40 03:55 Temperature 98.7 F Pulse Rate 73 Pulse Rate [ Anterior Bilateral Throughout] Pulse Rate [ From Monitor] Respiratory 18 Rate Respiratory Rate [Anterior Bilateral Throughout] Blood Pressure 101/55 O2 Sat by Pulse 94 95 Oximetry 08/22/20 08/22/20 08/22/20 04:00 05:00 06:00 Temperature Pulse Rate 71 71 67 Pulse Rate [ Anterior Bilateral Throughout] Pulse Rate [ From Monitor] Respiratory 21 23 22 Rate Respiratory Rate [Anterior Bilateral Throughout] Blood Pressure 103/61 113/66 124/72 O2 Sat by Pulse 95 92 93 Oximetry 08/22/20 08/22/20 08/22/20 07:00 08:00 09:20 Temperature Pulse Rate 72 74 93 H Pulse Rate [ 101 H Anterior Bilateral Throughout] Pulse Rate [ 71 From Monitor] Respiratory 22 15 Rate Respiratory 20 Rate [Anterior Bilateral Throughout] Blood Pressure 125/71 117/72 143/87 O2 Sat by Pulse 95 91 Oximetry 08/22/20 08/22/20 08/22/20 09:30 09:45 09:50 Temperature Pulse Rate 91 H 98 H 98 H Pulse Rate [ Anterior Bilateral Throughout] Pulse Rate [ From Monitor] Respiratory Rate Respiratory Rate [Anterior Bilateral Throughout] Blood Pressure 147/80 150/86 138/78 O2 Sat by Pulse Oximetry 08/22/20 08/22/20 08/22/20 10:00 10:15 10:30 Temperature Pulse Rate 102 H 106 H 110 H Pulse Rate [ Anterior Bilateral Throughout] Pulse Rate [ From Monitor] Respiratory Rate Respiratory Rate [Anterior Bilateral Throughout] Blood Pressure 159/87 146/77 111/72 O2 Sat by Pulse Oximetry 08/22/20 08/22/20 08/22/20 10:45 11:00 11:15 Temperature Pulse Rate 108 H 98 H 107 H Pulse Rate [ Anterior Bilateral Throughout] Pulse Rate [ From Monitor] Respiratory Rate Respiratory Rate [Anterior Bilateral Throughout] Blood Pressure 110/62 111/74 112/71 O2 Sat by Pulse Oximetry Constitutional: alert, other (obese, critically ill on ventilator) Eyes: non-icteric ENT: oropharynx moist Neck: supple Effort: normal Ascultation: Bilateral: diminished breath sounds Cardiovascular: regular rate and rhythm (no mrg) Gastrointestinal: normoactive bowel sounds, soft, non-tender, non-distended Integumentary: normal Extremities: no cyanosis, no edema Neurologic: normal mental status, non-focal exam Psychiatric: mood appropriate, affect normal CBC and BMP: 08/19/20 04:23 08/19/20 04:23 ABG, PT/INR, D-dimer: PT/INR, D-dimer D-Dimer > 91994 ng/mlDDU (0-234) H 08/19/20 16:58 Abnormal lab findings: Abnormal Labs 08/15/20 08/15/20 08/15/20 17:01 17:01 17:01 RBC Hgb Hct MCH RDW 15.8 H Lymph % (Auto) 7.4 L Lymph # (Auto) 0.7 L Seg Neutrophils % 85.1 H Seg Neuts % (Manual) Lymphocytes % (Manual) Seg Neutrophils # 7.9 H Lymphocytes # (Manual) D-Dimer 1750.12 H Sodium Potassium 5.1 H Chloride 97.1 L Carbon Dioxide BUN 67 H Creatinine 4.8 H Glucose 101 H POC Glucose Hemoglobin A1c Calcium Phosphorus Ferritin AST 53 H Lactate Dehydrogenase C-Reactive Protein Total Protein Albumin 3.4 L PTH Intact Ur Specific [place] Urine WBC (Auto) U Epithel Cells (Auto) Urine Creatinine Urine Total Protein Coronavirus (PCR) 08/15/20 08/15/20 08/15/20 17:01 17:01 17:01 RBC Hgb Hct MCH RDW Lymph % (Auto) Lymph # (Auto) Seg Neutrophils % Seg Neuts % (Manual) Lymphocytes % (Manual) Seg Neutrophils # Lymphocytes # (Manual) D-Dimer Sodium Potassium Chloride Carbon Dioxide BUN Creatinine Glucose 101 H POC Glucose Hemoglobin A1c Calcium Phosphorus Ferritin 667.2 H AST Lactate Dehydrogenase 606 H 567 H C-Reactive Protein 4.60 H 6.30 H Total Protein Albumin PTH Intact Ur Specific [place] Urine WBC (Auto) U Epithel Cells (Auto) Urine Creatinine Urine Total Protein Coronavirus (PCR) 08/16/20 08/16/20 08/16/20 04:32 04:32 04:32 RBC Hgb Hct MCH 27 L RDW 15.9 H Lymph % (Auto) 12.6 L Lymph # (Auto) 0.8 L Seg Neutrophils % 83.7 H Seg Neuts % (Manual) Lymphocytes % (Manual) Seg Neutrophils # Lymphocytes # (Manual) D-Dimer Sodium 136 L Potassium 6.7 H* D Chloride Carbon Dioxide BUN 78 H Creatinine 6.2 H Glucose 223 H POC Glucose Hemoglobin A1c 7.6 H Calcium 7.8 L Phosphorus Ferritin AST 47 H Lactate Dehydrogenase C-Reactive Protein Total Protein 5.8 L D Albumin 3.1 L PTH Intact Ur Specific [place] Urine WBC (Auto) U Epithel Cells (Auto) Urine Creatinine Urine Total Protein Coronavirus (PCR) 08/16/20 08/16/20 08/16/20 17:01 17:05 21:41 RBC Hgb Hct MCH RDW Lymph % (Auto) Lymph # (Auto) Seg Neutrophils % Seg Neuts % (Manual) Lymphocytes % (Manual) Seg Neutrophils # Lymphocytes # (Manual) D-Dimer Sodium Potassium Chloride Carbon Dioxide BUN 93 H Creatinine 7.7 H Glucose 228 H POC Glucose 150 H 204 H Hemoglobin A1c Calcium Phosphorus Ferritin AST Lactate Dehydrogenase C-Reactive Protein Total Protein Albumin PTH Intact Ur Specific [place] Urine WBC (Auto) U Epithel Cells (Auto) Urine Creatinine Urine Total Protein Coronavirus (PCR) 08/16/20 08/17/20 08/17/20 Unknown 07:31 07:31 RBC Hgb Hct MCH 27 L RDW 16.0 H Lymph % (Auto) 4.2 L Lymph # (Auto) 0.4 L Seg Neutrophils % 90.0 H Seg Neuts % (Manual) Lymphocytes % (Manual) Seg Neutrophils # 8.8 H Lymphocytes # (Manual) D-Dimer Sodium Potassium 5.8 H D Chloride Carbon Dioxide 20 L BUN 103 H Creatinine 9.0 H Glucose 219 H POC Glucose Hemoglobin A1c Calcium 7.9 L Phosphorus Ferritin AST Lactate Dehydrogenase C-Reactive Protein Total Protein Albumin PTH Intact Ur Specific [place] Urine WBC (Auto) U Epithel Cells (Auto) Urine Creatinine Urine Total Protein Coronavirus (PCR) Positive A 08/17/20 08/17/20 08/17/20 07:44 09:35 09:35 RBC Hgb Hct MCH RDW Lymph % (Auto) Lymph # (Auto) Seg Neutrophils % Seg Neuts % (Manual) Lymphocytes % (Manual) Seg Neutrophils # Lymphocytes # (Manual) D-Dimer Sodium Potassium Chloride Carbon Dioxide BUN Creatinine Glucose POC Glucose 188 H Hemoglobin A1c Calcium Phosphorus 5.90 H Ferritin AST Lactate Dehydrogenase C-Reactive Protein Total Protein Albumin PTH Intact 452.6 H Ur Specific [place] Urine WBC (Auto) U Epithel Cells (Auto) Urine Creatinine Urine Total Protein Coronavirus (PCR) 08/17/20 08/17/20 08/17/20 11:23 16:38 17:45 RBC Hgb Hct MCH RDW Lymph % (Auto) Lymph # (Auto) Seg Neutrophils % Seg Neuts % (Manual) Lymphocytes % (Manual) Seg Neutrophils # Lymphocytes # (Manual) D-Dimer Sodium Potassium Chloride Carbon Dioxide BUN Creatinine Glucose POC Glucose 205 H 212 H Hemoglobin A1c Calcium Phosphorus Ferritin AST Lactate Dehydrogenase C-Reactive Protein Total Protein Albumin PTH Intact Ur Specific [place] 1.039 H Urine WBC (Auto) 32.0 H U Epithel Cells (Auto) 44.0 H Urine Creatinine Urine Total Protein Coronavirus (PCR) 08/17/20 08/17/20 08/18/20 17:45 21:39 08:00 RBC Hgb Hct MCH RDW Lymph % (Auto) Lymph # (Auto) Seg Neutrophils % Seg Neuts % (Manual) Lymphocytes % (Manual) Seg Neutrophils # Lymphocytes # (Manual) D-Dimer Sodium Potassium Chloride Carbon Dioxide BUN Creatinine Glucose POC Glucose 206 H 229 H Hemoglobin A1c Calcium Phosphorus Ferritin AST Lactate Dehydrogenase C-Reactive Protein Total Protein Albumin PTH Intact Ur Specific [place] Urine WBC (Auto) U Epithel Cells (Auto) Urine Creatinine 248.0 H Urine Total Protein 196 H Coronavirus (PCR) 08/18/20 08/18/20 08/18/20 08:36 08:36 11:00 RBC 3.64 L Hgb 10.0 L Hct MCH RDW 15.8 H Lymph % (Auto) 5.9 L Lymph # (Auto) 0.5 L Seg Neutrophils % 87.3 H Seg Neuts % (Manual) Lymphocytes % (Manual) Seg Neutrophils # Lymphocytes # (Manual) D-Dimer Sodium 135 L D Potassium Chloride 95.8 L Carbon Dioxide 20 L BUN 84 H Creatinine 8.4 H Glucose 262 H POC Glucose 238 H Hemoglobin A1c Calcium 7.5 L Phosphorus Ferritin AST Lactate Dehydrogenase C-Reactive Protein Total Protein 6.1 L Albumin 2.5 L PTH Intact Ur Specific [place] Urine WBC (Auto) U Epithel Cells (Auto) Urine Creatinine Urine Total Protein Coronavirus (PCR) 08/18/20 08/18/20 08/19/20 16:14 21:52 04:23 RBC 3.53 L Hgb 9.5 L Hct 30.0 L MCH 27 L RDW 15.6 H Lymph % (Auto) Lymph # (Auto) Seg Neutrophils % Seg Neuts % (Manual) 84.0 H Lymphocytes % (Manual) 9.0 L Seg Neutrophils # Lymphocytes # (Manual) 0.5 L D-Dimer Sodium Potassium Chloride Carbon Dioxide BUN Creatinine Glucose POC Glucose 248 H 303 H Hemoglobin A1c Calcium Phosphorus Ferritin AST Lactate Dehydrogenase C-Reactive Protein Total Protein Albumin PTH Intact Ur Specific [place] Urine WBC (Auto) U Epithel Cells (Auto) Urine Creatinine Urine Total Protein Coronavirus (PCR) 08/19/20 08/19/20 08/19/20 04:23 06:44 11:53 RBC Hgb Hct MCH RDW Lymph % (Auto) Lymph # (Auto) Seg Neutrophils % Seg Neuts % (Manual) Lymphocytes % (Manual) Seg Neutrophils # Lymphocytes # (Manual) D-Dimer Sodium Potassium Chloride 97.2 L Carbon Dioxide BUN 86 H Creatinine 9.2 H Glucose 271 H POC Glucose 213 H 266 H Hemoglobin A1c Calcium 7.5 L Phosphorus Ferritin AST Lactate Dehydrogenase C-Reactive Protein Total Protein 5.8 L Albumin 2.5 L PTH Intact Ur Specific [place] Urine WBC (Auto) U Epithel Cells (Auto) Urine Creatinine Urine Total Protein Coronavirus (PCR) 08/19/20 08/19/20 08/19/20 16:58 16:58 16:58 RBC Hgb Hct MCH RDW Lymph % (Auto) Lymph # (Auto) Seg Neutrophils % Seg Neuts % (Manual) Lymphocytes % (Manual) Seg Neutrophils # Lymphocytes # (Manual) D-Dimer > 99136 H Sodium Potassium Chloride Carbon Dioxide BUN Creatinine Glucose POC Glucose Hemoglobin A1c Calcium Phosphorus Ferritin 1043.0 H AST Lactate Dehydrogenase 721 H C-Reactive Protein 3.00 H Total Protein Albumin PTH Intact Ur Specific [place] Urine WBC (Auto) U Epithel Cells (Auto) Urine Creatinine Urine Total Protein Coronavirus (PCR) 08/19/20 08/19/20 08/20/20 17:18 22:53 06:38 RBC Hgb Hct MCH RDW Lymph % (Auto) Lymph # (Auto) Seg Neutrophils % Seg Neuts % (Manual) Lymphocytes % (Manual) Seg Neutrophils # Lymphocytes # (Manual) D-Dimer Sodium Potassium Chloride Carbon Dioxide BUN Creatinine Glucose POC Glucose 223 H 273 H 268 H Hemoglobin A1c Calcium Phosphorus Ferritin AST Lactate Dehydrogenase C-Reactive Protein Total Protein Albumin PTH Intact Ur Specific [place] Urine WBC (Auto) U Epithel Cells (Auto) Urine Creatinine Urine Total Protein Coronavirus (PCR) 08/20/20 08/20/20 08/20/20 08:21 11:47 15:46 RBC Hgb Hct MCH RDW Lymph % (Auto) Lymph # (Auto) Seg Neutrophils % Seg Neuts % (Manual) Lymphocytes % (Manual) Seg Neutrophils # Lymphocytes # (Manual) D-Dimer Sodium Potassium Chloride Carbon Dioxide BUN Creatinine Glucose POC Glucose 264 H 288 H 262 H Hemoglobin A1c Calcium Phosphorus Ferritin AST Lactate Dehydrogenase C-Reactive Protein Total Protein Albumin PTH Intact Ur Specific [place] Urine WBC (Auto) U Epithel Cells (Auto) Urine Creatinine Urine Total Protein Coronavirus (PCR) 08/20/20 08/21/20 08/21/20 21:33 07:46 11:56 RBC Hgb Hct MCH RDW Lymph % (Auto) Lymph # (Auto) Seg Neutrophils % Seg Neuts % (Manual) Lymphocytes % (Manual) Seg Neutrophils # Lymphocytes # (Manual) D-Dimer Sodium Potassium Chloride Carbon Dioxide BUN Creatinine Glucose POC Glucose 274 H 249 H 227 H Hemoglobin A1c Calcium Phosphorus Ferritin AST Lactate Dehydrogenase C-Reactive Protein Total Protein Albumin PTH Intact Ur Specific [place] Urine WBC (Auto) U Epithel Cells (Auto) Urine Creatinine Urine Total Protein Coronavirus (PCR) 08/21/20 08/21/20 08/22/20 17:19 21:34 08:48 RBC Hgb Hct MCH RDW Lymph % (Auto) Lymph # (Auto) Seg Neutrophils % Seg Neuts % (Manual) Lymphocytes % (Manual) Seg Neutrophils # Lymphocytes # (Manual) D-Dimer Sodium Potassium Chloride Carbon Dioxide BUN Creatinine Glucose POC Glucose 318 H 286 H 257 H Hemoglobin A1c Calcium Phosphorus Ferritin AST Lactate Dehydrogenase C-Reactive Protein Total Protein Albumin PTH Intact Ur Specific [place] Urine WBC (Auto) U Epithel Cells (Auto) Urine Creatinine Urine Total Protein Coronavirus (PCR)
[2020-08-22] MEDS ORDERED: INSULIN GLARGINE 100 UNITS/ML SUB-Q ONE (12:00)
--- NOTE | 2020-08-22 12:21 | Progress Note ---
Assessment and Plan Cultures: SARS CoV2 PCR: positive 08/15/2020 blood culture: No growth 08/17/2020 urine culture: Skin fay A/P: 64-year-old female with hypertension, diabetes, COPD, prior CVA, CKD was admitted to the hospital with cough and shortness of breath along with wheezing and headache going on for almost a month: #Bilateral pneumonia: secondary to COVID-19. Test was positive as outpatient as well. Symptomatic for a month. s/p empiric abx. Given prolonged symptoms and renal failure, unlikely to benefit from Remdesivir #Acute hypoxic respiratory failure: on HFNC. #ANGELIQUE on CKD: On intermittent HD per nephrology. #Mild transaminitis: Probably from COVID-19. Hepatitis panel negative. Resolved. Recs: -continue steroids, higher dose d/w Dr. Burnett -complete Ceftriaxone, Azithromycin after today's doses -prophylactic anticoagulation based on d-dimer per hospital protocol, d-dimer high, consider VTE evaluation -monitor markers Dale Suarez MD, FACP [facility] ([facility] O: [phone] F: [phone] Subjective Date of service: 08/22/20 Principal diagnosis: Acute respiratory failure Interval history: No fever. Remains on HFNC. Objective - Exam Narrative Exam: Physical Exam (reviewed in chart to minimize risk of transmission) Constitutional: deferred Head, Ears, Nose: deferred Eyes: deferred Neck: deferred Oral: deferred Cardiovascular: deferred Respiratory: deferred GI: deferred Musculoskeletal: deferred Skin: deferred Hem/Lymphatic: deferred Psych: deferred Neurological: deferred - Constitutional Vitals: Vital Signs Temp Pulse Resp BP Pulse Ox 98.7 F 103 H 20 106/66 91 08/22/20 03:55 08/22/20 11:30 08/22/20 08:00 08/22/20 11:30 08/22/20 08:00 Temperature -Last 24 Hours Temperature 98.7 F Temperature 98.8 F Temperature 98.8 F Temperature 97.8 F Temperature 98.4 F - Labs CBC & Chem 7: 08/19/20 04:23 08/19/20 04:23 Labs: Abnormal lab results 08/21/20 08/21/20 08/22/20 Range/Units 17:19 21:34 08:48 POC Glucose 318 H 286 H 257 H (70-105) mg/dL
--- NOTE | 2020-08-22 17:35 | Progress Note ---
Assessment and Plan Assessment and plan #Acute kidney injury: s/p hemodialysis 08/21 with low flow that she tolerated very well prior to that she has had issues with hypotension and inability to tolerate dialysis. Tolerating dialysis today without any complications. Most likely etiology of her renal failure appears to be acute tubular necrosis #Has underlying chronic kidney disease her baseline creatinine is around 1.7-[address] Rivers's office #Respiratory failure resulting from Covid 19 pneumonia - being followed by pulmonary service #Her bilateral pulmonary infiltrates appear to be mainly due to Covid 19 pneumonia, patient does not tolerate ultrafiltration very well, will attempt UF as tolerated today. #Covid 19 viral pneumonia with ARDS like picture, patient has multiorgan failure, she will need ongoing renal replacement therapy as tolerated for now. Monitor labs and I/O daily. # Keep MAP> 65 # Renally dose medications # Renal diet Subjective Date of service: 08/22/20 Principal diagnosis: Acute respiratory failure Interval history: Seen during dialysis, no complications noted Patient was seen for her renal issues Nursing, interdisciplinary and consult notes were reviewed Vitals, input and output, medications and labs were reviewed Objective - Exam Narrative Exam: General: No acute distress Neck: Supple, no JVD Extremity: No peripheral cyanosis, edema Neurological: Alert, awake, no asterixis Dermatology: No skin rash Psych: No agitation Musculoskeletal: No joint effusion - Vital Signs Vital signs: Vital Signs - 12hr 08/22/20 08/22/20 08/22/20 06:00 07:00 08:00 Temperature 98.0 F Pulse Rate 67 72 74 Pulse Rate [ 101 H Anterior Bilateral Throughout] Pulse Rate [ 71 From Monitor] Respiratory 22 22 15 Rate Respiratory 20 Rate [Anterior Bilateral Throughout] Blood Pressure 124/72 125/71 117/72 O2 Sat by Pulse 93 95 91 Oximetry O2 Sat by Pulse Oximetry [ Anterior Bilateral Throughout] 08/22/20 08/22/20 08/22/20 09:00 09:15 09:20 Temperature 98.0 F Pulse Rate 98 H 92 H 93 H Pulse Rate [ Anterior Bilateral Throughout] Pulse Rate [ From Monitor] Respiratory 22 19 Rate Respiratory Rate [Anterior Bilateral Throughout] Blood Pressure 124/63 139/92 143/87 O2 Sat by Pulse 87 Oximetry O2 Sat by Pulse 95 Oximetry [ Anterior Bilateral Throughout] 08/22/20 08/22/20 08/22/20 09:30 09:45 09:50 Temperature Pulse Rate 91 H 98 H 98 H Pulse Rate [ Anterior Bilateral Throughout] Pulse Rate [ From Monitor] Respiratory Rate Respiratory Rate [Anterior Bilateral Throughout] Blood Pressure 147/80 150/86 138/78 O2 Sat by Pulse Oximetry O2 Sat by Pulse Oximetry [ Anterior Bilateral Throughout] 08/22/20 08/22/20 08/22/20 10:00 10:15 10:30 Temperature Pulse Rate 102 H 106 H 110 H Pulse Rate [ Anterior Bilateral Throughout] Pulse Rate [ From Monitor] Respiratory Rate Respiratory Rate [Anterior Bilateral Throughout] Blood Pressure 159/87 146/77 111/72 O2 Sat by Pulse 93 Oximetry O2 Sat by Pulse Oximetry [ Anterior Bilateral Throughout] 08/22/20 08/22/20 08/22/20 10:45 11:00 11:15 Temperature Pulse Rate 108 H 99 H 107 H Pulse Rate [ Anterior Bilateral Throughout] Pulse Rate [ From Monitor] Respiratory Rate Respiratory Rate [Anterior Bilateral Throughout] Blood Pressure 110/62 111/74 112/71 O2 Sat by Pulse 91 Oximetry O2 Sat by Pulse Oximetry [ Anterior Bilateral Throughout] 08/22/20 08/22/20 08/22/20 11:30 11:45 12:00 Temperature 97.5 F L Pulse Rate 103 H 101 H 107 H Pulse Rate [ Anterior Bilateral Throughout] Pulse Rate [ From Monitor] Respiratory Rate Respiratory Rate [Anterior Bilateral Throughout] Blood Pressure 106/66 104/63 114/69 O2 Sat by Pulse 92 Oximetry O2 Sat by Pulse Oximetry [ Anterior Bilateral Throughout] 08/22/20 08/22/20 08/22/20 12:15 12:20 12:40 Temperature 97.5 F L Pulse Rate 104 H 99 H 99 H Pulse Rate [ Anterior Bilateral Throughout] Pulse Rate [ From Monitor] Respiratory 20 Rate Respiratory Rate [Anterior Bilateral Throughout] Blood Pressure 110/73 106/76 112/77 O2 Sat by Pulse Oximetry O2 Sat by Pulse 94 Oximetry [ Anterior Bilateral Throughout] 08/22/20 08/22/20 08/22/20 13:00 13:13 14:01 Temperature Pulse Rate 101 H 101 H Pulse Rate [ 112 H Anterior Bilateral Throughout] Pulse Rate [ From Monitor] Respiratory 25 H Rate Respiratory 23 Rate [Anterior Bilateral Throughout] Blood Pressure 110/71 86/49 O2 Sat by Pulse 97 94 Oximetry O2 Sat by Pulse Oximetry [ Anterior Bilateral Throughout] 0308/22/20 08/22/20 15:00 15:30 16:01 Temperature Pulse Rate 106 H 105 H 123 H Pulse Rate [ Anterior Bilateral Throughout] Pulse Rate [ From Monitor] Respiratory 23 25 H 23 Rate Respiratory Rate [Anterior Bilateral Throughout] Blood Pressure 111/63 106/59 111/63 O2 Sat by Pulse 85 81 L 97 Oximetry O2 Sat by Pulse Oximetry [ Anterior Bilateral Throughout] 08/22/20 16:30 Temperature Pulse Rate 112 H Pulse Rate [ Anterior Bilateral Throughout] Pulse Rate [ From Monitor] Respiratory 33 H Rate Respiratory Rate [Anterior Bilateral Throughout] Blood Pressure 122/72 O2 Sat by Pulse 94 Oximetry O2 Sat by Pulse Oximetry [ Anterior Bilateral Throughout] - Lab 08/19/20 04:23 08/19/20 04:23 Most recent lab results Calcium 7.5 mg/dL (8.4-10.2) L 08/19/20 04:23 Phosphorus 5.90 mg/dL (2.5-4.5) H 08/17/20 09:35 Urine Creatinine 248.0 mg/dL (0.1-20.0) H 08/17/20 17:45 Urine Total Protein 196 mg/dL (5-11.8) H 08/17/20 17:45 Medications & Allergies - Medications Allergies/Adverse Reactions: Allergies gabapentin [From Neurontin] Allergy (Verified 08/15/20 17:25) Unknown rosuvastatin calcium [From Crestor] Allergy (Verified 08/15/20 17:25) Rash fluticasone propionate [From Advair Diskus] Adverse Reaction (Verified 08/15/20 17:25) Headache salmeterol xinafoate [From Advair Diskus] Adverse Reaction (Verified 08/15/20 17:25) Headache IV DYE Adverse Reaction (Uncoded 08/15/20 17:25) Itching Home Medications: Home Medications Medication Instructions Recorded Confirmed Last Taken Type Colchicine [Colcrys] 0.6 mg PO DAILY 08/15/20 08/15/20 Unknown History Cyanocobalamin (Vitamin B-12) 1,000 mcg IJ QMONTH 08/15/20 08/15/20 Unknown History [Physicians Ez Use B-12] Ergocalciferol [Vitamin D2] 1 cap PO QWEEK 08/15/20 08/15/20 Unknown History Ezetimibe/Simvastatin 1 each PO DAILY 08/15/20 08/15/20 Unknown History [Ezetimibe-Simvastatin 10-20 mg] Famotidine [Pepcid] 40 mg PO DAILY 08/15/20 08/15/20 Unknown History Furosemide [Lasix] 40 mg PO BID 08/15/20 08/15/20 Unknown History HYDROcodone/APAP 5-325 [[place] 1 each PO Q6HR PRN 08/15/20 08/15/20 Unknown History 5/325] Linagliptin [Tradjenta] 5 mg PO QDAY 08/15/20 08/15/20 Unknown History Omeprazole 40 mg PO DAILY 08/15/20 08/15/20 Unknown History Potassium Chloride [K-Dur] 20 meq PO BID 08/15/20 08/15/20 Unknown History Valsartan [Diovan] 160 mg PO QDAY 08/15/20 08/15/20 Unknown History allopurinoL [Zyloprim] 200 mg PO DAILY 08/15/20 08/15/20 Unknown History carvediloL [Coreg] 3.125 mg PO BID 08/15/20 08/15/20 Unknown History Albuterol Sulfate [Proair 90 mcg INHALATION Q4H PRN 08/17/20 08/17/20 Unknown History Digihaler] Spiriva 2.5 mcg INHALATION DAILY 08/17/20 08/17/20 Unknown History Symbicort 160-4.5 Mcg Inhaler 160 mcg INHALATION BID 08/17/20 08/17/20 Unknown History Active Medications: Generic Name Dose Route Start Last Admin Trade Name Freq PRN Reason Stop Dose Admin Acetaminophen 650 mg 08/15/20 22:16 08/19/20 01:17 Acetaminophen 325 Mg Tab PO 650 mg Q4H PRN Administration Pain MILD(1-3)/Fever >100.5/TELLO Hydrocodone Bitart/Acetaminophen 1 each 08/15/20 22:06 08/21/20 17:57 Hydrocodone/Acetaminophen 5-325 Mg Tab PO 1 each Q6HR PRN Administration Pain, Moderate (4-6) Albuterol 2.5 mg 08/17/20 19:26 08/22/20 13:13 Albuterol 2.5 Mg/3 Ml Nebu IH 2.5 mg Q6HRT SYLVAIN Administration Ascorbic Acid 1,000 mg 08/15/20 23:00 08/22/20 09:02 Ascorbic Acid 500 Mg Tab PO 1,000 mg BID SYLVAIN Administration Calcitriol 0.25 mcg 08/18/20 10:00 08/22/20 09:02 Calcitriol 0.25 Mcg Cap PO 0.25 mcg QDAY SYLVAIN Administration Colchicine 0.6 mg 08/16/20 10:00 08/22/20 09:03 Colchicine 0.6 Mg Tab PO 0.6 mg QOD SYLVAIN Administration Ezetimibe 10 mg 08/16/20 10:00 08/22/20 09:02 Ezetimibe 10 Mg Tab PO 10 mg DAILY SYLVAIN Administration Heparin Sodium (Porcine) 5,000 unit 08/19/20 14:00 08/22/20 13:46 Heparin 5,000 Unit/1 Ml Vial SUB-Q 5,000 unit Q8HR SYLVAIN Administration Hydromorphone HCl 0.5 mg 08/15/20 22:16 Hydromorphone 1 Mg/1 Ml Inj IV Q3H PRN Pain , Severe (7-10) Dexamethasone 20 mg/ Sodium 55 mls @ 100 mls/hr 08/18/20 15:00 08/22/20 11:00 Chloride IV 08/25/20 14:59 100 mls/hr Q12HR SYLVAIN Administration Norepinephrine 4 mg in 250 mls @ 7.5 mls/hr 08/19/20 10:00 Levophed Drip 4 Mg/Ns 250 Ml IV TITR SYLVAIN Protocol 2 MCG/MIN Sodium Chloride 100 mls @ 999 mls/hr 08/22/20 08:00 Nacl 0.9% IV SARAI PRN Hypotension Insulin Glargine 25 units 08/23/20 08:00 Insulin Glargine 100 Units/Ml SUB-Q QAMDIAB [facility] Insulin Human Lispro 0 unit 08/18/20 13:23 08/22/20 13:46 Insulin Lispro 100 Unit/Ml SUB-Q 10 unit ACHS SYLVAIN Administration Protocol Linagliptin 5 mg 08/16/20 10:00 08/22/20 09:02 Linagliptin 5 Mg Tab PO 5 mg QDAY SYLVAIN Administration Metoclopramide HCl 5 mg 08/15/20 22:37 Metoclopramide 10 Mg/2 Ml Inj IV Q6H PRN Nausea And Vomiting Multivit/Ca Carb/B Cmplx/FA/Prenat 1 cap 08/18/20 10:00 08/22/20 09:02 Folic Acid/Vit B Comp W-C 1 Mg (Renal Caps) PO 1 cap DAILY SYLVAIN Administration Ondansetron HCl 4 mg 08/15/20 22:16 Ondansetron 4 Mg/2 Ml Inj IV Q8H PRN Nausea And Vomiting Oxycodone/Acetaminophen 1 tab 08/15/20 22:16 08/18/20 09:58 Oxycodone /Acetaminophen 5-325mg Tab PO 1 tab Q6H PRN Administration Pain, Moderate (4-6) Pantoprazole Sodium 40 mg 08/16/20 10:00 08/22/20 09:02 Pantoprazole 40 Mg Tab PO 40 mg DAILY SYLVAIN Administration Pravastatin Sodium 40 mg 08/16/20 10:00 08/22/20 09:02 Pravastatin 40 Mg Tab PO 40 mg DAILY SYLVAIN Administration Pseudoephedrine/Acetam/Chlorphenir 10 ml 08/18/20 10:30 08/18/20 17:52 Guaifenesin/Codeine 100-10mg Oral Liqd 5 Ml PO 10 ml Q4H PRN Administration Cough Sodium Chloride 10 ml 08/15/20 23:00 08/22/20 09:04 Sodium Chloride 0.9% 10 Ml Flush Syringe IV 10 ml BID SYLVAIN Administration Sodium Chloride 10 ml 08/15/20 22:16 Sodium Chloride 0.9% 10 Ml Flush Syringe IV PRN PRN LINE FLUSH Zinc Sulfate 220 mg 08/15/20 23:00 08/22/20 09:02 Zinc Sulfate 220 Mg Cap PO 220 mg BID SYLVAIN Administration
[2020-08-23] MEDS: ALBUTEROL 2.5 MG/3 ML NEBU IH SCH ×4 (03:15→20:49)
[2020-08-23] MEDS: HEPARIN 5,000 UNIT/1 ML VIAL SUB-Q SCH ×3 (05:37→21:08)
[2020-08-23 06:12] LABS: Hemoglobin 9.9 gm/dl (10.1-14.3); Mean Corpuscular HGB Conc 32 % (30-34); Mean Corpuscular Volume 84 fl (79-97); Platelet Count 218 K/mm3 (140-440); Red Blood Count 3.68 M/mm3 (3.65-5.03); Red Cell Distribution Width 15.1 % (13.2-15.2)
[2020-08-23 06:27] LABS: Calcium 7.9 mg/dL (8.4-10.2)
--- NOTE | 2020-08-23 07:27 | Progress Note ---
Assessment and Plan - Patient Problems (1) Acute respiratory failure with hypoxia Current Visit: Yes Status: Acute Plan to address problem: Coronavirus PCR to be ruled out Patient has bilateral pulmonary opacities Patient on high flow nasal cannula oxygen (2) Acute kidney injury superimposed on CKD Current Visit: Yes Status: Acute Plan to address problem: Patient has baseline creatinine was 1.7 which is worsened to more than 6 Possibly Covid related Patient on intermittent hemodialysis Nephrology follow-up appreciated (3) Person under investigation for severe acute respiratory syndrome coronavirus 2 (SARS-CoV-2) infection Current Visit: Yes Status: Acute Plan to address problem: Coronavirus PCR positive (4) Bilateral pneumonia Current Visit: Yes Status: Acute Plan to address problem: On high flow nasal cannula oxygen Antibiotics stopped (5) Hypertension Current Visit: Yes Status: Chronic Qualifiers: Hypertension type: essential hypertension Qualified Code(s): I10 - Essential (primary) hypertension Plan to address problem: Continue antihypertensives and adjust medications (6) COPD (chronic obstructive pulmonary disease) Current Visit: Yes Status: Chronic Plan to address problem: DuoNebs as needed (7) Hyperkalemia Current Visit: Yes Status: Acute Plan to address problem: Hyperkalemia treated. (8) T2DM (type 2 diabetes mellitus) Current Visit: Yes Status: Chronic Qualifiers: Diabetes mellitus director long term care insulin use: unspecified director long term care insulin use status Plan to address problem: Coverage for now Check hemoglobin A1c (9) DVT prophylaxis Current Visit: Yes Status: Acute Plan to address problem: On heparin and GI prophylaxis Subjective Date of service: 08/22/20 Principal diagnosis: Acute respiratory failure Interval history: 64-year-old female with history of hypertension, diabetes, COPD and old CVA comes in for cough productive of yellow sputum and wheezing and headache and scratchy throat. Going on for 4 weeks since July 21. Symptoms have been progressive since July 21. Patient has took a course of Z-Bipin and steroids with no relief. Patient states that she requested a Covid test, insurance company and pressors positive after 3 days of testing today. Intermittent fever present. Exposure to coronavirus not known. Shortness of breath on exertion. 08/22/2020 Patient continues to be on high flow nasal cannula oxygen Intermittent hemodialysis Patient in ICU because of her high flow nasal cannula oxygen and hemodialysis Objective - Constitutional Vitals: Vital Signs - 12hr 08/22/20 08/22/20 08/22/20 19:30 19:46 20:00 Temperature 98.4 F Pulse Rate 103 H 102 H Pulse Rate [ Anterior Bilateral Throughout] Pulse Rate [ 102 H From Monitor] Respiratory 37 H 39 H Rate Respiratory Rate [Anterior Bilateral Throughout] Blood Pressure 149/84 131/79 O2 Sat by Pulse 97 95 Oximetry 08/22/20 08/22/20 08/22/20 20:30 21:00 21:31 Temperature Pulse Rate 102 H 100 H 126 H Pulse Rate [ Anterior Bilateral Throughout] Pulse Rate [ From Monitor] Respiratory 37 H 33 H 31 H Rate Respiratory Rate [Anterior Bilateral Throughout] Blood Pressure 127/85 127/75 147/88 O2 Sat by Pulse 97 97 85 Oximetry 08/22/20 08/22/20 08/22/20 22:00 22:29 22:30 Temperature Pulse Rate 96 H 101 H 92 H Pulse Rate [ Anterior Bilateral Throughout] Pulse Rate [ From Monitor] Respiratory 36 H 38 H 35 H Rate Respiratory Rate [Anterior Bilateral Throughout] Blood Pressure 135/80 135/80 135/80 O2 Sat by Pulse 97 97 97 Oximetry 08/22/20 08/22/20 08/22/20 22:46 22:47 23:00 Temperature Pulse Rate 90 Pulse Rate [ 95 H Anterior Bilateral Throughout] Pulse Rate [ From Monitor] Respiratory 35 H Rate Respiratory 21 Rate [Anterior Bilateral Throughout] Blood Pressure 144/80 O2 Sat by Pulse 94 98 Oximetry 08/22/20 08/23/20 08/23/20 23:30 00:00 00:30 Temperature 98.7 F Pulse Rate 100 H 96 H 94 H Pulse Rate [ Anterior Bilateral Throughout] Pulse Rate [ 96 H From Monitor] Respiratory 45 H 37 H 33 H Rate Respiratory Rate [Anterior Bilateral Throughout] Blood Pressure 152/83 151/80 140/79 O2 Sat by Pulse 96 98 98 Oximetry 08/23/20 08/23/20 08/23/20 01:00 01:30 02:00 Temperature Pulse Rate 98 H 95 H 96 H Pulse Rate [ Anterior Bilateral Throughout] Pulse Rate [ From Monitor] Respiratory 22 39 H 25 H Rate Respiratory Rate [Anterior Bilateral Throughout] Blood Pressure 133/70 159/85 144/79 O2 Sat by Pulse 91 94 97 Oximetry 08/23/20 08/23/20 08/23/20 02:30 03:00 03:13 Temperature Pulse Rate 91 H 116 H Pulse Rate [ Anterior Bilateral Throughout] Pulse Rate [ From Monitor] Respiratory 26 H 25 H Rate Respiratory Rate [Anterior Bilateral Throughout] Blood Pressure 154/82 141/78 O2 Sat by Pulse 96 86 95 Oximetry 08/23/20 08/23/20 08/23/20 03:15 03:30 03:35 Temperature 98.5 F Pulse Rate 87 Pulse Rate [ 84 Anterior Bilateral Throughout] Pulse Rate [ From Monitor] Respiratory 15 Rate Respiratory 19 Rate [Anterior Bilateral Throughout] Blood Pressure 155/90 O2 Sat by Pulse 97 Oximetry 08/23/20 08/23/20 08/23/20 04:00 04:01 04:30 Temperature Pulse Rate 78 78 76 Pulse Rate [ Anterior Bilateral Throughout] Pulse Rate [ 78 From Monitor] Respiratory 18 20 Rate Respiratory Rate [Anterior Bilateral Throughout] Blood Pressure 171/78 149/77 O2 Sat by Pulse 98 98 98 Oximetry 08/23/20 08/23/20 08/23/20 05:00 05:30 06:00 Temperature Pulse Rate 74 73 74 Pulse Rate [ Anterior Bilateral Throughout] Pulse Rate [ From Monitor] Respiratory 22 21 20 Rate Respiratory Rate [Anterior Bilateral Throughout] Blood Pressure 148/72 166/79 157/77 O2 Sat by Pulse 98 98 97 Oximetry General appearance: Present: mild distress, well-nourished - EENT Eyes: PERRL, EOM intact ENT: hearing intact, clear oral mucosa Ears: bilateral: normal - Neck Neck: supple, normal ROM - Respiratory Respiratory effort: normal Respiratory: bilateral: CTA - Breasts Breasts: normal - Cardiovascular Heart rate: 88 Rhythm: regular Heart Sounds: Present: S1 & S2. Absent: gallop, rub Extremities: pulses intact, No edema, normal color, Full ROM - Gastrointestinal General gastrointestinal: Present: soft, non-tender, non-distended, normal bowel sounds - Genitourinary Female genitourinary: normal - Integumentary Integumentary: clear, warm, dry - Musculoskeletal Musculoskeletal: 1, strength equal bilaterally - Neurologic Neurologic: moves all extremities - Psychiatric Psychiatric: memory intact, appropriate mood/affect, intact judgment & insight - Labs CBC & Chem 7: 08/23/20 05:47 08/23/20 05:47 Labs: Abnormal lab results 08/22/20 08/22/20 08/22/20 Range/Units 08:48 12:34 17:41 WBC (4.5-11.0) K/mm3 Hgb (10.1-14.3) gm/dl MCH (28-32) pg Sodium (137-145) mmol/L Chloride (98-107) mmol/L BUN (7-17) mg/dL Creatinine (0.6-1.2) mg/dL Glucose (65-100) mg/dL POC Glucose 257 H 324 H 283 H (70-105) mg/dL Calcium (8.4-10.2) mg/dL 08/22/20 08/23/20 08/23/20 Range/Units 21:22 05:47 05:47 WBC 13.7 H (4.5-11.0) K/mm3 Hgb 9.9 L (10.1-14.3) gm/dl MCH 27 L (28-32) pg Sodium 133 L (137-145) mmol/L Chloride 90.4 L (98-107) mmol/L BUN 103 H (7-17) mg/dL Creatinine 9.5 H (0.6-1.2) mg/dL Glucose 346 H (65-100) mg/dL POC Glucose 308 H (70-105) mg/dL Calcium 7.9 L (8.4-10.2) mg/dL
[2020-08-23] MEDS ORDERED: INSULIN GLARGINE 100 UNITS/ML SUB-Q SCH (08:00)
[2020-08-23] MEDS: INSULIN LISPRO 100 UNIT/ML SUB-Q SCH ×4 (08:25→21:21)
[2020-08-23] MEDS: dexAMETHasone 20 MG in SODIUM CHLORIDE 0.9% 50 ML IV SCH ×2 (09:12→21:13)
[2020-08-23] MEDS: EZETIMIBE 10 MG TAB PO SCH (09:12)
[2020-08-23] MEDS: PANTOPRAZOLE 40 MG TAB PO SCH (09:13)
[2020-08-23] MEDS: ASCORBIC ACID 500 MG TAB PO SCH ×2 (09:13→21:09)
[2020-08-23] MEDS: PRAVASTATIN 40 MG TAB PO SCH (09:13)
[2020-08-23] MEDS: ZINC SULFATE 220 MG CAP PO SCH ×2 (09:13→21:09)
[2020-08-23] MEDS: LINAGLIPTIN 5 MG TAB PO SCH (09:13)
[2020-08-23] MEDS: FOLIC ACID/VIT B COMP W-C 1 MG (RENAL CAPS) PO SCH (09:14)
[2020-08-23] MEDS: CALCITRIOL 0.25 MCG CAP PO SCH (09:14)
[2020-08-23] MEDS ORDERED: INSULIN GLARGINE 100 UNITS/ML SUB-Q ONE (10:00)
[2020-08-23] MEDS ORDERED: SODIUM CHLORIDE 0.9% 100 ML IV PRN (10:42)
--- NOTE | 2020-08-23 10:52 | Progress Note ---
Assessment and Plan 64 y/o female with acute respiratory failure thought secondary to COVID, found to be positive 08/23/20: Agree with HD again today. Wean FiO2 for sats >88% and patient comfort. Continue steroids at current dosing. Lantus for sugars. Will observe on HD again today. If anything, and a bed is needed, can transfer to step down. 08/22/20: HD per renal. Patient has questions about why she is requiring HD, please address with her if possible. Hopeful she will have several HD sessions back to back as I feel a lot of her most recent decline is from volume. COntinue High dose steroids but will extend out to 10 days. Increase lantus to help with sugars. Can likely be transferred to step down or back to the floor. 08/19/20: Ordered PICC line for use during HD if patient requires vasopressors. Most likely increase in oxygen secondary to volume from lack of appropriate HD secondary to hypotension. Will give a couple amps of bicarb to see if this will help with blood pressure and can wills off pressor use. Continue steroids. Agree with ID on increasing the dose. Guarded prognosis 08/18/20: Prone as tolerated during day and sleep prone at night. Continue supplemental O2. Steroids for 10 days. Hold on nebs. Needs RT consult for documentation of oxygen therapy and requirements. 08/17/20: Found to be positive. Same recs as yesterday. Likely not a candidate for remdesivir given renal function. No nebulizer therapy, only inhaler therapy if and when needed. Continue supplemental O2 and proning is mcknight. Guarded pr ognosis given renal failure. 1. Follow up covid testing 2. Ok with current steroids 3. If patient brought in home inhalers, please allow pharmacy to verify and use them, no neb treatments 4. Prone during the day and and sleep prone at night as tolerated. Guarded prognosis. Subjective Date of service: 08/23/20 Principal diagnosis: Acute respiratory failure with hypoxia, ANGELIQUE superimposed onCKD, Covid pneum Interval history: No acute events. HD on yesterday and per renal again today. Back up to 80% FiO2 but sats are good so should be able to wean. Objective Vital Signs - 12hr 08/22/20 08/22/20 08/23/20 23:00 23:30 00:00 Temperature 98.7 F Pulse Rate 90 100 H 96 H Pulse Rate [ Anterior Bilateral Throughout] Pulse Rate [ 96 H From Monitor] Respiratory 35 H 45 H 37 H Rate Respiratory Rate [Anterior Bilateral Throughout] Blood Pressure 144/80 152/83 151/80 O2 Sat by Pulse 98 96 98 Oximetry 08/23/20 08/23/20 08/23/20 00:30 01:00 01:30 Temperature Pulse Rate 94 H 98 H 95 H Pulse Rate [ Anterior Bilateral Throughout] Pulse Rate [ From Monitor] Respiratory 33 H 22 39 H Rate Respiratory Rate [Anterior Bilateral Throughout] Blood Pressure 140/79 133/70 159/85 O2 Sat by Pulse 98 91 94 Oximetry 08/23/20 08/23/20 08/23/20 02:00 02:30 03:00 Temperature Pulse Rate 96 H 91 H 116 H Pulse Rate [ Anterior Bilateral Throughout] Pulse Rate [ From Monitor] Respiratory 25 H 26 H 25 H Rate Respiratory Rate [Anterior Bilateral Throughout] Blood Pressure 144/79 154/82 141/78 O2 Sat by Pulse 97 96 86 Oximetry 08/23/20 08/23/20 08/23/20 03:13 03:15 03:30 Temperature Pulse Rate 87 Pulse Rate [ 84 Anterior Bilateral Throughout] Pulse Rate [ From Monitor] Respiratory 15 Rate Respiratory 19 Rate [Anterior Bilateral Throughout] Blood Pressure 155/90 O2 Sat by Pulse 95 97 Oximetry 08/23/20 08/23/20 08/23/20 03:35 04:00 04:01 Temperature 98.5 F Pulse Rate 78 78 Pulse Rate [ Anterior Bilateral Throughout] Pulse Rate [ 78 From Monitor] Respiratory 18 Rate Respiratory Rate [Anterior Bilateral Throughout] Blood Pressure 171/78 O2 Sat by Pulse 98 98 Oximetry 08/23/20 08/23/20 08/23/20 04:30 05:00 05:30 Temperature Pulse Rate 76 74 73 Pulse Rate [ Anterior Bilateral Throughout] Pulse Rate [ From Monitor] Respiratory 20 22 21 Rate Respiratory Rate [Anterior Bilateral Throughout] Blood Pressure 149/77 148/72 166/79 O2 Sat by Pulse 98 98 98 Oximetry 08/23/20 08/23/20 08/23/20 06:00 06:30 07:00 Temperature Pulse Rate 74 73 84 Pulse Rate [ Anterior Bilateral Throughout] Pulse Rate [ From Monitor] Respiratory 20 20 28 H Rate Respiratory Rate [Anterior Bilateral Throughout] Blood Pressure 157/77 155/83 165/88 O2 Sat by Pulse 97 97 94 Oximetry 08/23/20 08/23/20 08/23/20 07:30 08:00 08:11 Temperature 98.2 F Pulse Rate 83 82 Pulse Rate [ 93 H Anterior Bilateral Throughout] Pulse Rate [ 82 From Monitor] Respiratory 24 21 Rate Respiratory 18 Rate [Anterior Bilateral Throughout] Blood Pressure 153/74 153/80 O2 Sat by Pulse 84 93 93 Oximetry 08/23/20 08/23/20 08/23/20 08:31 09:00 09:30 Temperature Pulse Rate 114 H 114 H 104 H Pulse Rate [ Anterior Bilateral Throughout] Pulse Rate [ From Monitor] Respiratory 31 H 33 H 37 H Rate Respiratory Rate [Anterior Bilateral Throughout] Blood Pressure 130/94 151/100 135/82 O2 Sat by Pulse 88 94 92 Oximetry 08/23/20 10:00 Temperature Pulse Rate 107 H Pulse Rate [ Anterior Bilateral Throughout] Pulse Rate [ From Monitor] Respiratory 16 Rate Respiratory Rate [Anterior Bilateral Throughout] Blood Pressure 136/80 O2 Sat by Pulse 88 Oximetry Constitutional: alert, other (obese, critically ill on ventilator) Eyes: non-icteric ENT: oropharynx moist Neck: supple Effort: normal Ascultation: Bilateral: diminished breath sounds Cardiovascular: regular rate and rhythm (no mrg) Gastrointestinal: normoactive bowel sounds, soft, non-tender, non-distended Integumentary: normal Extremities: no cyanosis, no edema Neurologic: normal mental status, non-focal exam Psychiatric: mood appropriate, affect normal CBC and BMP: 08/23/20 05:47 08/23/20 05:47 ABG, PT/INR, D-dimer: PT/INR, D-dimer D-Dimer > 36506 ng/mlDDU (0-234) H 08/19/20 16:58 Abnormal lab findings: Abnormal Labs 08/15/20 08/15/20 08/15/20 17:01 17:01 17:01 WBC RBC Hgb Hct MCH RDW 15.8 H Lymph % (Auto) 7.4 L Lymph # (Auto) 0.7 L Seg Neutrophils % 85.1 H Seg Neuts % (Manual) Lymphocytes % (Manual) Seg Neutrophils # 7.9 H Lymphocytes # (Manual) D-Dimer 1750.12 H Sodium Potassium 5.1 H Chloride 97.1 L Carbon Dioxide BUN 67 H Creatinine 4.8 H Glucose 101 H POC Glucose Hemoglobin A1c Calcium Phosphorus Ferritin AST 53 H Lactate Dehydrogenase C-Reactive Protein Total Protein Albumin 3.4 L PTH Intact Ur Specific Emigrant Urine WBC (Auto) U Epithel Cells (Auto) Urine Creatinine Urine Total Protein Coronavirus (PCR) 08/15/20 08/15/20 08/15/20 17:01 17:01 17:01 WBC RBC Hgb Hct MCH RDW Lymph % (Auto) Lymph # (Auto) Seg Neutrophils % Seg Neuts % (Manual) Lymphocytes % (Manual) Seg Neutrophils # Lymphocytes # (Manual) D-Dimer Sodium Potassium Chloride Carbon Dioxide BUN Creatinine Glucose 101 H POC Glucose Hemoglobin A1c Calcium Phosphorus Ferritin 667.2 H AST Lactate Dehydrogenase 606 H 567 H C-Reactive Protein 4.60 H 6.30 H Total Protein Albumin PTH Intact Ur Specific Emigrant Urine WBC (Auto) U Epithel Cells (Auto) Urine Creatinine Urine Total Protein Coronavirus (PCR) 08/16/20 08/16/20 08/16/20 04:32 04:32 04:32 WBC RBC Hgb Hct MCH 27 L RDW 15.9 H Lymph % (Auto) 12.6 L Lymph # (Auto) 0.8 L Seg Neutrophils % 83.7 H Seg Neuts % (Manual) Lymphocytes % (Manual) Seg Neutrophils # Lymphocytes # (Manual) D-Dimer Sodium 136 L Potassium 6.7 H* D Chloride Carbon Dioxide BUN 78 H Creatinine 6.2 H Glucose 223 H POC Glucose Hemoglobin A1c 7.6 H Calcium 7.8 L Phosphorus Ferritin AST 47 H Lactate Dehydrogenase C-Reactive Protein Total Protein 5.8 L D Albumin 3.1 L PTH Intact Ur Specific [place]igrant Urine WBC (Auto) U Epithel Cells (Auto) Urine Creatinine Urine Total Protein Coronavirus (PCR) 08/16/20 08/16/20 08/16/20 17:01 17:05 21:41 WBC RBC Hgb Hct MCH RDW Lymph % (Auto) Lymph # (Auto) Seg Neutrophils % Seg Neuts % (Manual) Lymphocytes % (Manual) Seg Neutrophils # Lymphocytes # (Manual) D-Dimer Sodium Potassium Chloride Carbon Dioxide BUN 93 H Creatinine 7.7 H Glucose 228 H POC Glucose 150 H 204 H Hemoglobin A1c Calcium Phosphorus Ferritin AST Lactate Dehydrogenase C-Reactive Protein Total Protein Albumin PTH Intact Ur Specific [place]igrant Urine WBC (Auto) U Epithel Cells (Auto) Urine Creatinine Urine Total Protein Coronavirus (PCR) 08/16/20 08/17/20 08/17/20 Unknown 07:31 07:31 WBC RBC Hgb Hct MCH 27 L RDW 16.0 H Lymph % (Auto) 4.2 L Lymph # (Auto) 0.4 L Seg Neutrophils % 90.0 H Seg Neuts % (Manual) Lymphocytes % (Manual) Seg Neutrophils # 8.8 H Lymphocytes # (Manual) D-Dimer Sodium Potassium 5.8 H D Chloride Carbon Dioxide 20 L BUN 103 H Creatinine 9.0 H Glucose 219 H POC Glucose Hemoglobin A1c Calcium 7.9 L Phosphorus Ferritin AST Lactate Dehydrogenase C-Reactive Protein Total Protein Albumin PTH Intact Ur Specific Emigrant Urine WBC (Auto) U Epithel Cells (Auto) Urine Creatinine Urine Total Protein Coronavirus (PCR) Positive A 08/17/20 08/17/20 08/17/20 07:44 09:35 09:35 WBC RBC Hgb Hct MCH RDW Lymph % (Auto) Lymph # (Auto) Seg Neutrophils % Seg Neuts % (Manual) Lymphocytes % (Manual) Seg Neutrophils # Lymphocytes # (Manual) D-Dimer Sodium Potassium Chloride Carbon Dioxide BUN Creatinine Glucose POC Glucose 188 H Hemoglobin A1c Calcium Phosphorus 5.90 H Ferritin AST Lactate Dehydrogenase C-Reactive Protein Total Protein Albumin PTH Intact 452.6 H Ur Specific Emigrant Urine WBC (Auto) U Epithel Cells (Auto) Urine Creatinine Urine Total Protein Coronavirus (PCR) 08/17/20 08/17/20 08/17/20 11:23 16:38 17:45 WBC RBC Hgb Hct MCH RDW Lymph % (Auto) Lymph # (Auto) Seg Neutrophils % Seg Neuts % (Manual) Lymphocytes % (Manual) Seg Neutrophils # Lymphocytes # (Manual) D-Dimer Sodium Potassium Chloride Carbon Dioxide BUN Creatinine Glucose POC Glucose 205 H 212 H Hemoglobin A1c Calcium Phosphorus Ferritin AST Lactate Dehydrogenase C-Reactive Protein Total Protein Albumin PTH Intact Ur Specific Emigrant 1.039 H Urine WBC (Auto) 32.0 H U Epithel Cells (Auto) 44.0 H Urine Creatinine Urine Total Protein Coronavirus (PCR) 08/17/20 08/17/20 08/18/20 17:45 21:39 08:00 WBC RBC Hgb Hct MCH RDW Lymph % (Auto) Lymph # (Auto) Seg Neutrophils % Seg Neuts % (Manual) Lymphocytes % (Manual) Seg Neutrophils # Lymphocytes # (Manual) D-Dimer Sodium Potassium Chloride Carbon Dioxide BUN Creatinine Glucose POC Glucose 206 H 229 H Hemoglobin A1c Calcium Phosphorus Ferritin AST Lactate Dehydrogenase C-Reactive Protein Total Protein Albumin PTH Intact Ur Specific [place] Urine WBC (Auto) U Epithel Cells (Auto) Urine Creatinine 248.0 H Urine Total Protein 196 H Coronavirus (PCR) 08/18/20 08/18/20 08/18/20 08:36 08:36 11:00 WBC RBC 3.64 L Hgb 10.0 L Hct MCH RDW 15.8 H Lymph % (Auto) 5.9 L Lymph # (Auto) 0.5 L Seg Neutrophils % 87.3 H Seg Neuts % (Manual) Lymphocytes % (Manual) Seg Neutrophils # Lymphocytes # (Manual) D-Dimer Sodium 135 L D Potassium Chloride 95.8 L Carbon Dioxide 20 L BUN 84 H Creatinine 8.4 H Glucose 262 H POC Glucose 238 H Hemoglobin A1c Calcium 7.5 L Phosphorus Ferritin AST Lactate Dehydrogenase C-Reactive Protein Total Protein 6.1 L Albumin 2.5 L PTH Intact Ur Specific [place]igrant Urine WBC (Auto) U Epithel Cells (Auto) Urine Creatinine Urine Total Protein Coronavirus (PCR) 08/18/20 08/18/20 08/19/20 16:14 21:52 04:23 WBC RBC 3.53 L Hgb 9.5 L Hct 30.0 L MCH 27 L RDW 15.6 H Lymph % (Auto) Lymph # (Auto) Seg Neutrophils % Seg Neuts % (Manual) 84.0 H Lymphocytes % (Manual) 9.0 L Seg Neutrophils # Lymphocytes # (Manual) 0.5 L D-Dimer Sodium Potassium Chloride Carbon Dioxide BUN Creatinine Glucose POC Glucose 248 H 303 H Hemoglobin A1c Calcium Phosphorus Ferritin AST Lactate Dehydrogenase C-Reactive Protein Total Protein Albumin PTH Intact Ur Specific [place]igrant Urine WBC (Auto) U Epithel Cells (Auto) Urine Creatinine Urine Total Protein Coronavirus (PCR) 08/19/20 08/19/20 08/19/20 04:23 06:44 11:53 WBC RBC Hgb Hct MCH RDW Lymph % (Auto) Lymph # (Auto) Seg Neutrophils % Seg Neuts % (Manual) Lymphocytes % (Manual) Seg Neutrophils # Lymphocytes # (Manual) D-Dimer Sodium Potassium Chloride 97.2 L Carbon Dioxide BUN 86 H Creatinine 9.2 H Glucose 271 H POC Glucose 213 H 266 H Hemoglobin A1c Calcium 7.5 L Phosphorus Ferritin AST Lactate Dehydrogenase C-Reactive Protein Total Protein 5.8 L Albumin 2.5 L PTH Intact Ur Specific Emigrant Urine WBC (Auto) U Epithel Cells (Auto) Urine Creatinine Urine Total Protein Coronavirus (PCR) 08/19/20 08/19/20 08/19/20 16:58 16:58 16:58 WBC RBC Hgb Hct MCH RDW Lymph % (Auto) Lymph # (Auto) Seg Neutrophils % Seg Neuts % (Manual) Lymphocytes % (Manual) Seg Neutrophils # Lymphocytes # (Manual) D-Dimer > 28731 H Sodium Potassium Chloride Carbon Dioxide BUN Creatinine Glucose POC Glucose Hemoglobin A1c Calcium Phosphorus Ferritin 1043.0 H AST Lactate Dehydrogenase 721 H C-Reactive Protein 3.00 H Total Protein Albumin PTH Intact Ur Specific [place]igrant Urine WBC (Auto) U Epithel Cells (Auto) Urine Creatinine Urine Total Protein Coronavirus (PCR) 08/19/20 08/19/20 08/20/20 17:18 22:53 06:38 WBC RBC Hgb Hct MCH RDW Lymph % (Auto) Lymph # (Auto) Seg Neutrophils % Seg Neuts % (Manual) Lymphocytes % (Manual) Seg Neutrophils # Lymphocytes # (Manual) D-Dimer Sodium Potassium Chloride Carbon Dioxide BUN Creatinine Glucose POC Glucose 223 H 273 H 268 H Hemoglobin A1c Calcium Phosphorus Ferritin AST Lactate Dehydrogenase C-Reactive Protein Total Protein Albumin PTH Intact Ur Specific [place]igrant Urine WBC (Auto) U Epithel Cells (Auto) Urine Creatinine Urine Total Protein Coronavirus (PCR) 08/20/20 08/20/20 08/20/20 08:21 11:47 15:46 WBC RBC Hgb Hct MCH RDW Lymph % (Auto) Lymph # (Auto) Seg Neutrophils % Seg Neuts % (Manual) Lymphocytes % (Manual) Seg Neutrophils # Lymphocytes # (Manual) D-Dimer Sodium Potassium Chloride Carbon Dioxide BUN Creatinine Glucose POC Glucose 264 H 288 H 262 H Hemoglobin A1c Calcium Phosphorus Ferritin AST Lactate Dehydrogenase C-Reactive Protein Total Protein Albumin PTH Intact Ur Specific Emigrant Urine WBC (Auto) U Epithel Cells (Auto) Urine Creatinine Urine Total Protein Coronavirus (PCR) 08/20/20 08/21/20 08/21/20 21:33 07:46 11:56 WBC RBC Hgb Hct MCH RDW Lymph % (Auto) Lymph # (Auto) Seg Neutrophils % Seg Neuts % (Manual) Lymphocytes % (Manual) Seg Neutrophils # Lymphocytes # (Manual) D-Dimer Sodium Potassium Chloride Carbon Dioxide BUN Creatinine Glucose POC Glucose 274 H 249 H 227 H Hemoglobin A1c Calcium Phosphorus Ferritin AST Lactate Dehydrogenase C-Reactive Protein Total Protein Albumin PTH Intact Ur Specific [place]igrant Urine WBC (Auto) U Epithel Cells (Auto) Urine Creatinine Urine Total Protein Coronavirus (PCR) 08/21/20 08/21/20 08/22/20 17:19 21:34 08:48 WBC RBC Hgb Hct MCH RDW Lymph % (Auto) Lymph # (Auto) Seg Neutrophils % Seg Neuts % (Manual) Lymphocytes % (Manual) Seg Neutrophils # Lymphocytes # (Manual) D-Dimer Sodium Potassium Chloride Carbon Dioxide BUN Creatinine Glucose POC Glucose 318 H 286 H 257 H Hemoglobin A1c Calcium Phosphorus Ferritin AST Lactate Dehydrogenase C-Reactive Protein Total Protein Albumin PTH Intact Ur Specific [place]igrant Urine WBC (Auto) U Epithel Cells (Auto) Urine Creatinine Urine Total Protein Coronavirus (PCR) 08/22/20 08/22/20 08/22/20 12:34 17:41 21:22 WBC RBC Hgb Hct MCH RDW Lymph % (Auto) Lymph # (Auto) Seg Neutrophils % Seg Neuts % (Manual) Lymphocytes % (Manual) Seg Neutrophils # Lymphocytes # (Manual) D-Dimer Sodium Potassium Chloride Carbon Dioxide BUN Creatinine Glucose POC Glucose 324 H 283 H 308 H Hemoglobin A1c Calcium Phosphorus Ferritin AST Lactate Dehydrogenase C-Reactive Protein Total Protein Albumin PTH Intact Ur Specific [place] Urine WBC (Auto) U Epithel Cells (Auto) Urine Creatinine Urine Total Protein Coronavirus (PCR) 08/23/20 08/23/20 08/23/20 05:24 05:47 05:47 WBC 13.7 H RBC Hgb 9.9 L Hct MCH 27 L RDW Lymph % (Auto) Lymph # (Auto) Seg Neutrophils % Seg Neuts % (Manual) Lymphocytes % (Manual) Seg Neutrophils # Lymphocytes # (Manual) D-Dimer Sodium 133 L Potassium Chloride 90.4 L Carbon Dioxide BUN 103 H Creatinine 9.5 H Glucose 346 H POC Glucose 297 H Hemoglobin A1c Calcium 7.9 L Phosphorus Ferritin AST Lactate Dehydrogenase C-Reactive Protein Total Protein Albumin PTH Intact Ur Specific [place]igrant Urine WBC (Auto) U Epithel Cells (Auto) Urine Creatinine Urine Total Protein Coronavirus (PCR) 08/23/20 07:34 WBC RBC Hgb Hct MCH RDW Lymph % (Auto) Lymph # (Auto) Seg Neutrophils % Seg Neuts % (Manual) Lymphocytes % (Manual) Seg Neutrophils # Lymphocytes # (Manual) D-Dimer Sodium Potassium Chloride Carbon Dioxide BUN Creatinine Glucose POC Glucose 276 H Hemoglobin A1c Calcium Phosphorus Ferritin AST Lactate Dehydrogenase C-Reactive Protein Total Protein Albumin PTH Intact Ur Specific [place]igrant Urine WBC (Auto) U Epithel Cells (Auto) Urine Creatinine Urine Total Protein Coronavirus (PCR)
--- NOTE | 2020-08-23 12:46 | Progress Note ---
Assessment and Plan Assessment and plan #Acute kidney injury: s/p hemodialysis yesterday. Plan for repeat HD today with goal UF 2 L. Reassess daily for additional sessions. #Has underlying chronic kidney disease her baseline creatinine is around 1.7-[address] Rivers's office #Respiratory failure resulting from Covid 19 pneumonia + fluid overload- being followed by pulmonary service. UF with HD as tolerated. S/p 2 L removed yesterday. #Covid 19 viral pneumonia with ARDS like picture, patient has multiorgan failure, she will need ongoing renal replacement therapy as tolerated for now. Monitor labs and I/O daily. # Keep MAP> 65 # Renally dose medications # Renal diet Subjective Date of service: 08/23/20 Principal diagnosis: Acute respiratory failure with hypoxia, ANGELIQUE superimposed onCKD, Covid pneum Interval history: Tolerated dialysis without complications yesterday Patient was seen for her renal issues Nursing, interdisciplinary and consult notes were reviewed Vitals, input and output, medications and labs were reviewed Objective - Exam Narrative Exam: General: No acute distress Neck: Supple, no JVD Extremity: No peripheral cyanosis, edema Neurological: Alert, awake, no asterixis Dermatology: No skin rash Psych: No agitation Musculoskeletal: No joint effusion - Vital Signs Vital signs: Vital Signs - 12hr 08/23/20 08/23/20 08/23/20 01:00 01:30 02:00 Temperature Pulse Rate 98 H 95 H 96 H Pulse Rate [ Anterior Bilateral Throughout] Pulse Rate [ From Monitor] Respiratory 22 39 H 25 H Rate Respiratory Rate [Anterior Bilateral Throughout] Blood Pressure 133/70 159/85 144/79 O2 Sat by Pulse 91 94 97 Oximetry O2 Sat by Pulse Oximetry [ Anterior Bilateral Throughout] 08/23/20 08/23/20 08/23/20 02:30 03:00 03:13 Temperature Pulse Rate 91 H 116 H Pulse Rate [ Anterior Bilateral Throughout] Pulse Rate [ From Monitor] Respiratory 26 H 25 H Rate Respiratory Rate [Anterior Bilateral Throughout] Blood Pressure 154/82 141/78 O2 Sat by Pulse 96 86 95 Oximetry O2 Sat by Pulse Oximetry [ Anterior Bilateral Throughout] 08/23/20 08/23/20 08/23/20 03:15 03:30 03:35 Temperature 98.5 F Pulse Rate 87 Pulse Rate [ 84 Anterior Bilateral Throughout] Pulse Rate [ From Monitor] Respiratory 15 Rate Respiratory 19 Rate [Anterior Bilateral Throughout] Blood Pressure 155/90 O2 Sat by Pulse 97 Oximetry O2 Sat by Pulse Oximetry [ Anterior Bilateral Throughout] 08/23/20 08/23/20 08/23/20 04:00 04:01 04:30 Temperature Pulse Rate 78 78 76 Pulse Rate [ Anterior Bilateral Throughout] Pulse Rate [ 78 From Monitor] Respiratory 18 20 Rate Respiratory Rate [Anterior Bilateral Throughout] Blood Pressure 171/78 149/77 O2 Sat by Pulse 98 98 98 Oximetry O2 Sat by Pulse Oximetry [ Anterior Bilateral Throughout] 08/23/20 08/23/20 08/23/20 05:00 05:30 06:00 Temperature Pulse Rate 74 73 74 Pulse Rate [ Anterior Bilateral Throughout] Pulse Rate [ From Monitor] Respiratory 22 21 20 Rate Respiratory Rate [Anterior Bilateral Throughout] Blood Pressure 148/72 166/79 157/77 O2 Sat by Pulse 98 98 97 Oximetry O2 Sat by Pulse Oximetry [ Anterior Bilateral Throughout] 08/23/20 08/23/20 08/23/20 06:30 07:00 07:30 Temperature Pulse Rate 73 84 83 Pulse Rate [ Anterior Bilateral Throughout] Pulse Rate [ From Monitor] Respiratory 20 28 H 24 Rate Respiratory Rate [Anterior Bilateral Throughout] Blood Pressure 155/83 165/88 153/74 O2 Sat by Pulse 97 94 84 Oximetry O2 Sat by Pulse Oximetry [ Anterior Bilateral Throughout] 08/23/20 08/23/20 08/23/20 08:00 08:11 08:31 Temperature 98.2 F Pulse Rate 82 114 H Pulse Rate [ 93 H Anterior Bilateral Throughout] Pulse Rate [ 82 From Monitor] Respiratory 21 31 H Rate Respiratory 18 Rate [Anterior Bilateral Throughout] Blood Pressure 153/80 130/94 O2 Sat by Pulse 93 93 88 Oximetry O2 Sat by Pulse Oximetry [ Anterior Bilateral Throughout] 08/23/20 08/23/20 08/23/20 09:00 09:30 10:00 Temperature Pulse Rate 114 H 104 H 107 H Pulse Rate [ Anterior Bilateral Throughout] Pulse Rate [ From Monitor] Respiratory 33 H 37 H 16 Rate Respiratory Rate [Anterior Bilateral Throughout] Blood Pressure 151/100 135/82 136/80 O2 Sat by Pulse 94 92 88 Oximetry O2 Sat by Pulse Oximetry [ Anterior Bilateral Throughout] 08/23/20 08/23/20 08/23/20 11:00 11:15 11:30 Temperature 98.5 F Pulse Rate 89 86 88 Pulse Rate [ Anterior Bilateral Throughout] Pulse Rate [ From Monitor] Respiratory 25 H Rate Respiratory Rate [Anterior Bilateral Throughout] Blood Pressure 143/83 154/83 146/84 O2 Sat by Pulse Oximetry O2 Sat by Pulse 97 Oximetry [ Anterior Bilateral Throughout] 08/23/20 08/23/20 11:45 12:00 Temperature 98.5 F Pulse Rate 97 H 94 H Pulse Rate [ Anterior Bilateral Throughout] Pulse Rate [ From Monitor] Respiratory Rate Respiratory Rate [Anterior Bilateral Throughout] Blood Pressure 133/82 142/82 O2 Sat by Pulse Oximetry O2 Sat by Pulse Oximetry [ Anterior Bilateral Throughout] - Lab 08/23/20 05:47 08/23/20 05:47 Most recent lab results Calcium 7.9 mg/dL (8.4-10.2) L 08/23/20 05:47 Phosphorus 5.90 mg/dL (2.5-4.5) H 08/17/20 09:35 Urine Creatinine 248.0 mg/dL (0.1-20.0) H 08/17/20 17:45 Urine Total Protein 196 mg/dL (5-11.8) H 08/17/20 17:45 Medications & Allergies - Medications Allergies/Adverse Reactions: Allergies gabapentin [From Neurontin] Allergy (Verified 08/15/20 17:25) Unknown rosuvastatin calcium [From Crestor] Allergy (Verified 08/15/20 17:25) Rash fluticasone propionate [From Advair Diskus] Adverse Reaction (Verified 08/15/20 17:25) Headache salmeterol xinafoate [From Advair Diskus] Adverse Reaction (Verified 08/15/20 17:25) Headache IV DYE Adverse Reaction (Uncoded 08/15/20 17:25) Itching Home Medications: Home Medications Medication Instructions Recorded Confirmed Last Taken Type Colchicine [Colcrys] 0.6 mg PO DAILY 08/15/20 08/15/20 Unknown History Cyanocobalamin (Vitamin B-12) 1,000 mcg IJ QMONTH 08/15/20 08/15/20 Unknown History [Physicians Ez Use B-12] Ergocalciferol [Vitamin D2] 1 cap PO QWEEK 08/15/20 08/15/20 Unknown History Ezetimibe/Simvastatin 1 each PO DAILY 08/15/20 08/15/20 Unknown History [Ezetimibe-Simvastatin 10-20 mg] Famotidine [Pepcid] 40 mg PO DAILY 08/15/20 08/15/20 Unknown History Furosemide [Lasix] 40 mg PO BID 08/15/20 08/15/20 Unknown History HYDROcodone/APAP 5-325 [[place] 1 each PO Q6HR PRN 08/15/20 08/15/20 Unknown History 5/325] Linagliptin [Tradjenta] 5 mg PO QDAY 08/15/20 08/15/20 Unknown History Omeprazole 40 mg PO DAILY 08/15/20 08/15/20 Unknown History Potassium Chloride [K-Dur] 20 meq PO BID 08/15/20 08/15/20 Unknown History Valsartan [Diovan] 160 mg PO QDAY 08/15/20 08/15/20 Unknown History allopurinoL [Zyloprim] 200 mg PO DAILY 08/15/20 08/15/20 Unknown History carvediloL [Coreg] 3.125 mg PO BID 08/15/20 08/15/20 Unknown History Albuterol Sulfate [Proair 90 mcg INHALATION Q4H PRN 08/17/20 08/17/20 Unknown History Digihaler] Spiriva 2.5 mcg INHALATION DAILY 08/17/20 08/17/20 Unknown History Symbicort 160-4.5 Mcg Inhaler 160 mcg INHALATION BID 08/17/20 08/17/20 Unknown History Active Medications: Generic Name Dose Route Start Last Admin Trade Name Freq PRN Reason Stop Dose Admin Acetaminophen 650 mg 08/15/20 22:16 08/19/20 01:17 Acetaminophen 325 Mg Tab PO 650 mg Q4H PRN Administration Pain MILD(1-3)/Fever >100.5/TELLO Hydrocodone Bitart/Acetaminophen 1 each 08/15/20 22:06 08/21/20 17:57 Hydrocodone/Acetaminophen 5-325 Mg Tab PO 1 each Q6HR PRN Administration Pain, Moderate (4-6) Albuterol 2.5 mg 08/17/20 19:26 08/23/20 08:11 Albuterol 2.5 Mg/3 Ml Nebu IH 2.5 mg Q6HRT SYLVAIN Administration Ascorbic Acid 1,000 mg 08/15/20 23:00 08/23/20 09:13 Ascorbic Acid 500 Mg Tab PO 1,000 mg BID SYLVAIN Administration Calcitriol 0.25 mcg 08/18/20 10:00 08/23/20 09:14 Calcitriol 0.25 Mcg Cap PO 0.25 mcg QDAY SYLVAIN Administration Colchicine 0.6 mg 08/16/20 10:00 08/22/20 09:03 Colchicine 0.6 Mg Tab PO 0.6 mg QOD SYLVAIN Administration Ezetimibe 10 mg 08/16/20 10:00 08/23/20 09:12 Ezetimibe 10 Mg Tab PO 10 mg DAILY SYLVAIN Administration Heparin Sodium (Porcine) 5,000 unit 08/19/20 14:00 08/23/20 05:37 Heparin 5,000 Unit/1 Ml Vial SUB-Q 5,000 unit Q8HR SYLVAIN Administration Hydromorphone HCl 0.5 mg 08/15/20 22:16 Hydromorphone 1 Mg/1 Ml Inj IV Q3H PRN Pain , Severe (7-10) Dexamethasone 20 mg/ Sodium 55 mls @ 100 mls/hr 08/18/20 15:00 08/23/20 09:12 Chloride IV 08/25/20 14:59 100 mls/hr Q12HR SYLVAIN Administration Norepinephrine 4 mg in 250 mls @ 7.5 mls/hr 08/19/20 10:00 Levophed Drip 4 Mg/Ns 250 Ml IV TITR SYLVAIN Protocol 2 MCG/MIN Sodium Chloride 100 mls @ 999 mls/hr 08/23/20 10:42 Nacl 0.9% IV SARAI PRN Hypotension Insulin Glargine 35 units 08/24/20 08:00 Insulin Glargine 100 Units/Ml SUB-Q QAMDIAB [facility] Insulin Human Lispro 0 unit 08/18/20 13:23 08/23/20 11:49 Insulin Lispro 100 Unit/Ml SUB-Q 8 unit ACHS SYLVAIN Administration Protocol Linagliptin 5 mg 08/16/20 10:00 08/23/20 09:13 Linagliptin 5 Mg Tab PO 5 mg QDAY SYLVAIN Administration Metoclopramide HCl 5 mg 08/15/20 22:37 Metoclopramide 10 Mg/2 Ml Inj IV Q6H PRN Nausea And Vomiting Multivit/Ca Carb/B Cmplx/FA/Prenat 1 cap 08/18/20 10:00 08/23/20 09:14 Folic Acid/Vit B Comp W-C 1 Mg (Renal Caps) PO 1 cap DAILY SYLVAIN Administration Ondansetron HCl 4 mg 08/15/20 22:16 Ondansetron 4 Mg/2 Ml Inj IV Q8H PRN Nausea And Vomiting Oxycodone/Acetaminophen 1 tab 08/15/20 22:16 08/18/20 09:58 Oxycodone /Acetaminophen 5-325mg Tab PO 1 tab Q6H PRN Administration Pain, Moderate (4-6) Pantoprazole Sodium 40 mg 08/16/20 10:00 08/23/20 09:13 Pantoprazole 40 Mg Tab PO 40 mg DAILY SYLVAIN Administration Pravastatin Sodium 40 mg 08/16/20 10:00 08/23/20 09:13 Pravastatin 40 Mg Tab PO 40 mg DAILY SYLVAIN Administration Pseudoephedrine/Acetam/Chlorphenir 10 ml 08/18/20 10:30 08/18/20 17:52 Guaifenesin/Codeine 100-10mg Oral Liqd 5 Ml PO 10 ml Q4H PRN Administration Cough Sodium Chloride 10 ml 08/15/20 23:00 08/23/20 09:15 Sodium Chloride 0.9% 10 Ml Flush Syringe IV 10 ml BID SYLVAIN Administration Sodium Chloride 10 ml 08/15/20 22:16 Sodium Chloride 0.9% 10 Ml Flush Syringe IV PRN PRN LINE FLUSH Zinc Sulfate 220 mg 08/15/20 23:00 08/23/20 09:13 Zinc Sulfate 220 Mg Cap PO 220 mg BID SYLVAIN Administration
--- NOTE | 2020-08-23 13:48 | Progress Note ---
Assessment and Plan Cultures: SARS CoV2 PCR: positive 08/15/2020 blood culture: No growth 08/17/2020 urine culture: Skin fay A/P: 64-year-old female with hypertension, diabetes, COPD, prior CVA, CKD was admitted to the hospital with cough and shortness of breath along with wheezing and headache going on for almost a month: #Bilateral pneumonia: secondary to COVID-19. Test was positive as outpatient as well. Symptomatic for a month. s/p empiric abx. Given prolonged symptoms and renal failure, unlikely to benefit from Remdesivir #Acute hypoxic respiratory failure: on HFNC. #ANGELIQUE on CKD: On intermittent HD per nephrology. #Mild transaminitis: Probably from COVID-19. Hepatitis panel negative. Resolved. Recs: -continue steroids at higher dose d/w Dr. Burnett -completed Ceftriaxone, Azithromycin -prophylactic anticoagulation based on d-dimer per hospital protocol, d-dimer high, consider VTE evaluation -monitor markers, repeats ordered Dale Suarez MD, FACP [facility] ([facility] O: [phone] F: [phone] Subjective Date of service: 08/23/20 Principal diagnosis: Acute respiratory failure with hypoxia, ANGELIQUE superimposed onCKD, Covid pneum Interval history: No fever. Remains on HFNC. Objective - Exam Narrative Exam: Physical Exam (reviewed in chart to minimize risk of transmission) Constitutional: deferred Head, Ears, Nose: deferred Eyes: deferred Neck: deferred Oral: deferred Cardiovascular: deferred Respiratory: deferred GI: deferred Musculoskeletal: deferred Skin: deferred Hem/Lymphatic: deferred Psych: deferred Neurological: deferred - Constitutional Vitals: Vital Signs Temp Pulse Resp BP Pulse Ox 98.5 F 111 H 25 H 107/70 97 08/23/20 12:00 08/23/20 12:45 08/23/20 11:00 08/23/20 12:45 08/23/20 11:00 Temperature -Last 24 Hours Temperature 98.5 F Temperature 98.5 F Temperature 98.2 F Temperature 98.5 F Temperature 98.7 F Temperature 98.4 F Temperature 98.1 F - Labs CBC & Chem 7: 08/23/20 05:47 08/23/20 05:47 Labs: Abnormal lab results 0308/22/20 08/22/20 Range/Units 12:34 17:41 21:22 WBC (4.5-11.0) K/mm3 Hgb (10.1-14.3) gm/dl MCH (28-32) pg Sodium (137-145) mmol/L Chloride (98-107) mmol/L BUN (7-17) mg/dL Creatinine (0.6-1.2) mg/dL Glucose (65-100) mg/dL POC Glucose 324 H 283 H 308 H (70-105) mg/dL Calcium (8.4-10.2) mg/dL 08/23/20 08/23/20 08/23/20 Range/Units 05:24 05:47 05:47 WBC 13.7 H (4.5-11.0) K/mm3 Hgb 9.9 L (10.1-14.3) gm/dl MCH 27 L (28-32) pg Sodium 133 L (137-145) mmol/L Chloride 90.4 L (98-107) mmol/L BUN 103 H (7-17) mg/dL Creatinine 9.5 H (0.6-1.2) mg/dL Glucose 346 H (65-100) mg/dL POC Glucose 297 H (70-105) mg/dL Calcium 7.9 L (8.4-10.2) mg/dL 08/23/20 Range/Units 07:34 WBC (4.5-11.0) K/mm3 Hgb (10.1-14.3) gm/dl MCH (28-32) pg Sodium (137-145) mmol/L Chloride (98-107) mmol/L BUN (7-17) mg/dL Creatinine (0.6-1.2) mg/dL Glucose (65-100) mg/dL POC Glucose 276 H (70-105) mg/dL Calcium (8.4-10.2) mg/dL
[2020-08-23 14:54] LABS: C-Reactive Protein 0.8 mg/dL (0.00-1.30)
[2020-08-23] MEDS: guaiFENesin/CODEINE 100-10MG ORAL LIQD 5 ML PO PRN (17:21)
[2020-08-23] MEDS: HYDROcodone/ACETAMINOPHEN 5-325 MG TAB PO PRN (17:22)
--- NOTE | 2020-08-23 17:28 | Progress Note ---
Assessment and Plan Assessment and plan: -S/p azithromycin and ceftriaxone -Steroid therapy -Prophylactic anticoagulation per protocol -VQ scan pending -Bilateral lower extremity Doppler ultrasounds pending -HD per nephrology -Long-acting insulin, SSI -Prone as tolerated DVT/GI prophylaxis: Heparin subcu, SCDs to BLE while in bed, PPI Disposition: ICU History Interval history: This is a 64-year-old female with hypertension, diabetes, COPD, CVA, gout, hyperlipidemia who presented to the emergency department on 08/15 for a productive cough, wheezing, headache, subjective fevers scratchy throat ongoing for 4 weeks since 07/21/2020 s/p Z-Bipin and steroids who was COVID-19 positive prior to admission. 08/23: Patient complains of cough, intermittent shortness of breath, received hemodialysis today and remains on high flow nasal cannula at 40 L, 80%. No acute events reported overnight. VQ scan and bilateral lower extremity Doppler ultrasound pending 08/22: High flow nasal cannula, intermittent HD, high-dose steroids 08/21: High flow nasal cannula 08/20:-High flow nasal cannula 08/19:-High flow nasal cannula, PICC line ordered, bicarb 08/18: High flow nasal cannula, transferred to ICU 08/17: Hypoxia,-nasal cannula 08/16: High flow nasal cannula, Vas-Cath placement for intermittent HD, COVID-19 PCR positive COVID-19 pneumonia Hypokalemia Acute hypoxic respiratory failure Acute kidney injury superimposed on CKD Leukocytosis Elevated D-dimer Mild transaminitis Hyponatremia Hypochloremia Hyperglycemia Hypertension Diabetes mellitus COPD Hyperlipidemia Gout Hospitalist Physical - Constitutional Vitals: Temp Pulse Resp BP Pulse Ox 98.8 F 96 H 26 H 102/66 97 08/23/20 16:00 08/23/20 16:00 08/23/20 16:00 08/23/20 16:00 08/23/20 16:07 General appearance: Present: mild distress, well-nourished, obese - EENT Eyes: Present: EOM intact ENT: hearing decreased - Neck Neck: Present: normal ROM - Respiratory Respiratory effort: normal Respiratory: bilateral: diminished - Cardiovascular Rhythm: regular Heart Sounds: Present: S1 & S2. Absent: systolic murmur, diastolic murmur - Extremities Extremities: no ischemia, pulses intact, pulses symmetrical, No edema, normal temperature, normal color, Full ROM Peripheral Pulses: within normal limits - Abdominal General gastrointestinal: soft, non-tender, non-distended, normal bowel sounds - Integumentary Integumentary: Present: warm, dry - Psychiatric Psychiatric: cooperative - Neurologic Neurologic: CNII-XII intact, no focal deficits, moves all extremities - Allied Health Allied health notes reviewed: nursing, PT, RT, social work, case management Results - Labs CBC & Chem 7: 08/23/20 05:47 08/23/20 05:47 Labs: Laboratory Last Values WBC 13.7 K/mm3 (4.5-11.0) H 08/23/20 05:47 RBC 3.68 M/mm3 (3.65-5.03) 08/23/20 05:47 Hgb 9.9 gm/dl (10.1-14.3) L 08/23/20 05:47 Hct 31.0 % (30.3-42.9) 08/23/20 05:47 MCV 84 fl (79-97) 08/23/20 05:47 MCH 27 pg (28-32) L 08/23/20 05:47 MCHC 32 % (30-34) 08/23/20 05:47 RDW 15.1 % (13.2-15.2) 08/23/20 05:47 Plt Count 218 K/mm3 (140-440) 08/23/20 05:47 Lymph % (Auto) 5.9 % (13.4-35.0) L 08/18/20 08:36 [place] % (Auto) 6.6 % (0.0-7.3) 08/18/20 08:36 Eos % (Auto) 0.0 % (0.0-4.3) 08/18/20 08:36 Baso % (Auto) 0.2 % (0.0-1.8) 08/18/20 08:36 Lymph # (Auto) 0.5 K/mm3 (1.2-5.4) L 08/18/20 08:36 [place] # (Auto) 0.6 K/mm3 (0.0-0.8) 08/18/20 08:36 Eos # (Auto) 0.0 K/mm3 (0.0-0.4) 08/18/20 08:36 Baso # (Auto) 0.0 K/mm3 (0.0-0.1) 08/18/20 08:36 Add Manual Diff Complete 08/19/20 04:23 Total Counted 100 08/19/20 04:23 Seg Neutrophils % 87.3 % (40.0-70.0) H 08/18/20 08:36 Seg Neuts % (Manual) 84.0 % (40.0-70.0) H 08/19/20 04:23 Band Neutrophils % 3.0 % 08/19/20 04:23 Lymphocytes % (Manual) 9.0 % (13.4-35.0) L 08/19/20 04:23 Monocytes % (Manual) 4.0 % (0.0-7.3) 08/19/20 04:23 Nucleated RBC % Not Reportable 08/19/20 04:23 Seg Neutrophils # 7.4 K/mm3 (1.8-7.7) 08/18/20 08:36 Seg Neutrophils # Man 5.0 K/mm3 (1.8-7.7) 08/19/20 04:23 Band Neutrophils # 0.2 K/mm3 08/19/20 04:23 Lymphocytes # (Manual) 0.5 K/mm3 (1.2-5.4) L 08/19/20 04:23 Abs React Lymphs (Man) 0.0 K/mm3 08/19/20 04:23 Monocytes # (Manual) 0.2 K/mm3 (0.0-0.8) 08/19/20 04:23 Eosinophils # (Manual) 0.0 K/mm3 (0.0-0.4) 08/19/20 04:23 Basophils # (Manual) 0.0 K/mm3 (0.0-0.1) 08/19/20 04:23 Metamyelocytes # 0.0 K/mm3 08/19/20 04:23 Myelocytes # 0.0 K/mm3 08/19/20 04:23 Promyelocytes # 0.0 K/mm3 08/19/20 04:23 Blast Cells # 0.0 K/mm3 08/19/20 04:23 WBC Morphology Not Reportable 08/19/20 04:23 Hypersegmented Neuts Not Reportable 08/19/20 04:23 Hyposegmented Neuts Not Reportable 08/19/20 04:23 Hypogranular Neuts Not Reportable 08/19/20 04:23 Smudge Cells Not Reportable 08/19/20 04:23 Toxic Granulation Not Reportable 08/19/20 04:23 Toxic Vacuolation Not Reportable 08/19/20 04:23 Dohle Bodies Not Reportable 08/19/20 04:23 Pelger-Huet Anomaly Not Reportable 08/19/20 04:23 Shannon Rods Not Reportable 08/19/20 04:23 Platelet Estimate Consistent w auto 08/19/20 04:23 Clumped Platelets Not Reportable 08/19/20 04:23 Plt Clumps, EDTA Not Reportable 08/19/20 04:23 Large Platelets Not Reportable 08/19/20 04:23 Giant Platelets Not Reportable 08/19/20 04:23 Platelet Satelliting Not Reportable 08/19/20 04:23 Plt Morphology Comment Not Reportable 08/19/20 04:23 RBC Morphology Not Reportable 08/19/20 04:23 Dimorphic RBCs Not Reportable 08/19/20 04:23 Polychromasia Not Reportable 08/19/20 04:23 Hypochromasia Not Reportable 08/19/20 04:23 Poikilocytosis 1+ 08/19/20 04:23 Anisocytosis 1+ 08/19/20 04:23 Microcytosis Not Reportable 08/19/20 04:23 Macrocytosis Not Reportable 08/19/20 04:23 Spherocytes Not Reportable 08/19/20 04:23 Pappenheimer Bodies Not Reportable 08/19/20 04:23 Sickle Cells Not Reportable 08/19/20 04:23 Target Cells Not Reportable 08/19/20 04:23 Tear Drop Cells Rare 08/19/20 04:23 Ovalocytes Few 08/19/20 04:23 Helmet Cells Not Reportable 08/19/20 04:23 [place] Bodies Not Reportable 08/19/20 04:23 [place] Rings Not Reportable 08/19/20 04:23 Cristal Cells 1+ 08/19/20 04:23 Bite Cells Not Reportable 08/19/20 04:23 Crenated Cell Not Reportable 08/19/20 04:23 Elliptocytes Few 08/19/20 04:23 Acanthocytes (Spur) Not Reportable 08/19/20 04:23 Rouleaux Not Reportable 08/19/20 04:23 Hemoglobin C Crystals Not Reportable 08/19/20 04:23 Schistocytes Not Reportable 08/19/20 04:23 Malaria parasites Not Reportable 08/19/20 04:23 Mateusz Bodies Not Reportable 08/19/20 04:23 Hem Pathologist Commnt No 08/19/20 04:23 D-Dimer > 79425 ng/mlDDU (0-234) H 08/23/20 14:07 VBG pH 7.389 (7.320-7.420) 08/15/20 17:12 Sodium 133 mmol/L (137-145) L 08/23/20 05:47 Potassium 5.0 mmol/L (3.6-5.0) 08/23/20 05:47 Chloride 90.4 mmol/L (98-107) L 08/23/20 05:47 Carbon Dioxide 24 mmol/L (22-30) 08/23/20 05:47 Anion Gap 24 mmol/L 08/23/20 05:47 BUN 103 mg/dL (7-17) H 08/23/20 05:47 Creatinine 9.5 mg/dL (0.6-1.2) H 08/23/20 05:47 Estimated GFR 5 ml/min 08/23/20 05:47 BUN/Creatinine Ratio 11 % 08/23/20 05:47 Glucose 346 mg/dL (65-100) H 08/23/20 05:47 POC Glucose 248 mg/dL (70-105) H 08/23/20 15:54 Hemoglobin A1c 7.6 % (4-6) H 08/16/20 04:32 Lactic Acid 1.30 mmol/L (0.7-2.0) 08/15/20 17:01 Calcium 7.9 mg/dL (8.4-10.2) L 08/23/20 05:47 Phosphorus 5.90 mg/dL (2.5-4.5) H 08/17/20 09:35 Ferritin 1053.0 ng/mL (10.0-200.0) H 08/23/20 14:07 Total Bilirubin < 0.20 mg/dL (0.1-1.2) 08/19/20 04:23 AST 40 units/L (5-40) 08/19/20 04:23 ALT 13 units/L (7-56) 08/19/20 04:23 Alkaline Phosphatase 58 units/L (35-129) 08/19/20 04:23 Lactate Dehydrogenase 994 units/L (91-180) H 08/23/20 14:07 C-Reactive Protein 0.80 mg/dL (0.00-1.30) 08/23/20 14:07 Total Protein 5.8 g/dL (6.3-8.2) L 08/19/20 04:23 Albumin 2.5 g/dL (3.9-5) L 08/19/20 04:23 Albumin/Globulin Ratio 0.8 % 08/19/20 04:23 Procalcitonin 2.11 ng/mL (<0.15) 08/15/20 17:01 PTH Intact 452.6 pg/mL (15-65) H 08/17/20 09:35 Urine Color Yellow (Yellow) 08/17/20 17:45 Urine Turbidity Turbid (Clear) 08/17/20 17:45 Urine pH 5.0 (5.0-7.0) 08/17/20 17:45 Ur Specific [place] 1.039 (1.003-1.030) H 08/17/20 17:45 Urine Protein >500 mg/dL (Negative) 08/17/20 17:45 Urine Glucose (UA) 50 mg/dL (Negative) 08/17/20 17:45 Urine Ketones Neg mg/dL (Negative) 08/17/20 17:45 Urine Blood Neg (Negative) 08/17/20 17:45 Urine Nitrite Neg (Negative) 08/17/20 17:45 Urine Bilirubin Neg (Negative) 08/17/20 17:45 Urine Urobilinogen < 2.0 mg/dL (<2.0) 08/17/20 17:45 Ur Leukocyte Esterase Neg (Negative) 08/17/20 17:45 Urine WBC (Auto) 32.0 /HPF (0.0-6.0) H 08/17/20 17:45 Urine RBC (Auto) 32.0 /HPF (0.0-6.0) 08/17/20 17:45 U Epithel Cells (Auto) 44.0 /HPF (0-13.0) H 08/17/20 17:45 Urine Bacteria (Auto) 2+ /HPF (Negative) 08/17/20 17:45 Urine Creatinine 248.0 mg/dL (0.1-20.0) H 08/17/20 17:45 Urine Total Protein 196 mg/dL (5-11.8) H 08/17/20 17:45 Coronavirus (PCR) Positive (Negative) A 08/16/20 Unknown Hepatitis A IgM Ab Non-reactive (NonReactive) 08/16/20 21:00 Hep Bs Antigen Non-reactive (Negative) 08/16/20 21:00 Hep B Core IgM Ab Non-reactive (NonReactive) 08/16/20 21:00 Hepatitis C Antibody Non-reactive (NonReactive) 08/16/20 21:00 Odom/IV: Voiding Method Bedpan Active Medications - Current Medications Current Medications: Generic Name Dose Route Start Last Admin Trade Name Freq PRN Reason Stop Dose Admin Acetaminophen 650 mg 08/15/20 22:16 08/19/20 01:17 Acetaminophen 325 Mg Tab PO 650 mg Q4H PRN Administration Pain MILD(1-3)/Fever >100.5/TELLO Hydrocodone Bitart/Acetaminophen 1 each 08/15/20 22:06 08/23/20 17:22 Hydrocodone/Acetaminophen 5-325 Mg Tab PO 1 each Q6HR PRN Administration Pain, Moderate (4-6) Albuterol 2.5 mg 08/17/20 19:26 08/23/20 16:07 Albuterol 2.5 Mg/3 Ml Nebu IH Not Given Q6HRT SYLVAIN Ascorbic Acid 1,000 mg 08/15/20 23:00 08/23/20 09:13 Ascorbic Acid 500 Mg Tab PO 1,000 mg BID SYLVAIN Administration Calcitriol 0.25 mcg 08/18/20 10:00 08/23/20 09:14 Calcitriol 0.25 Mcg Cap PO 0.25 mcg QDAY SYLVAIN Administration Colchicine 0.6 mg 08/16/20 10:00 08/22/20 09:03 Colchicine 0.6 Mg Tab PO 0.6 mg QOD SYLVAIN Administration Ezetimibe 10 mg 08/16/20 10:00 08/23/20 09:12 Ezetimibe 10 Mg Tab PO 10 mg DAILY SYLVAIN Administration Heparin Sodium (Porcine) 5,000 unit 08/19/20 14:00 08/23/20 14:53 Heparin 5,000 Unit/1 Ml Vial SUB-Q 5,000 unit Q8HR SYLVAIN Administration Hydromorphone HCl 0.5 mg 08/15/20 22:16 Hydromorphone 1 Mg/1 Ml Inj IV Q3H PRN Pain , Severe (7-10) Dexamethasone 20 mg/ Sodium 55 mls @ 100 mls/hr 08/18/20 15:00 08/23/20 09:12 Chloride IV 08/25/20 14:59 100 mls/hr Q12HR SYLVAIN Administration Norepinephrine 4 mg in 250 mls @ 7.5 mls/hr 08/19/20 10:00 Levophed Drip 4 Mg/Ns 250 Ml IV TITR SYLVAIN Protocol 2 MCG/MIN Sodium Chloride 100 mls @ 999 mls/hr 08/23/20 10:42 Nacl 0.9% IV SARAI PRN Hypotension Insulin Glargine 35 units 08/24/20 08:00 Insulin Glargine 100 Units/Ml SUB-Q QAMDIAB SYLVAIN Insulin Human Lispro 0 unit 08/18/20 13:23 08/23/20 17:16 Insulin Lispro 100 Unit/Ml SUB-Q 4 unit ACHS SYLVAIN Administration Protocol Linagliptin 5 mg 08/16/20 10:00 08/23/20 09:13 Linagliptin 5 Mg Tab PO 5 mg QDAY SYLVAIN Administration Metoclopramide HCl 5 mg 08/15/20 22:37 Metoclopramide 10 Mg/2 Ml Inj IV Q6H PRN Nausea And Vomiting Multivit/Ca Carb/B Cmplx/FA/Prenat 1 cap 08/18/20 10:00 08/23/20 09:14 Folic Acid/Vit B Comp W-C 1 Mg (Renal Caps) PO 1 cap DAILY SYLVAIN Administration Ondansetron HCl 4 mg 08/15/20 22:16 Ondansetron 4 Mg/2 Ml Inj IV Q8H PRN Nausea And Vomiting Oxycodone/Acetaminophen 1 tab 08/15/20 22:16 08/18/20 09:58 Oxycodone /Acetaminophen 5-325mg Tab PO 1 tab Q6H PRN Administration Pain, Moderate (4-6) Pantoprazole Sodium 40 mg 08/16/20 10:00 08/23/20 09:13 Pantoprazole 40 Mg Tab PO 40 mg DAILY SYLVAIN Administration Pravastatin Sodium 40 mg 08/16/20 10:00 08/23/20 09:13 Pravastatin 40 Mg Tab PO 40 mg DAILY SYLVAIN Administration Pseudoephedrine/Acetam/Chlorphenir 10 ml 08/18/20 10:30 08/23/20 17:21 Guaifenesin/Codeine 100-10mg Oral Liqd 5 Ml PO 10 ml Q4H PRN Administration Cough Sodium Chloride 10 ml 08/15/20 23:00 08/23/20 09:15 Sodium Chloride 0.9% 10 Ml Flush Syringe IV 10 ml BID SYLVAIN Administration Sodium Chloride 10 ml 08/15/20 22:16 Sodium Chloride 0.9% 10 Ml Flush Syringe IV PRN PRN LINE FLUSH Zinc Sulfate 220 mg 08/15/20 23:00 08/23/20 09:13 Zinc Sulfate 220 Mg Cap PO 220 mg BID SYLVAIN Administration Nutrition/Malnutrition Assess - Dietary Evaluation Nutrition/Malnutrition Findings: Nutrition Notes Start: 08/22/20 12:53 Freq: Status: Active Protocol: Document 08/22/20 12:53 (Rec: 08/22/20 13:03 [email or web address]) Nutrition Notes Need for Assessment generated from: LOS Initial or Follow up Assessment Current Diagnosis Acute Kidney Injury,CKD(stage I-IV),COPD,Diabetes, Respiratory Failure Other Pertinent Diagnosis COVID, pneu Current Diet Cardiac, Consistent CHO Labs/Tests 08/19: BUN 86 Cr 9.2 POC BG 257 Pertinent Medications Humalog Renal caps Zinc Vitamin D Height 5 ft 2 in Weight 141 kg [place] Body Weight (kg) 50.00 BMI 56.8 Weight Status Morbidly Obese Subjective/Other Information Screen for LOS. Per RN, pt eating with minimal intakes. Pt did not answer phone x2. Pt receiving HD today. Burn Absent Trauma Absent Current % PO Negligible Minimum of two criteria No physical signs of malnutrition #1 Nutrition Diagnosis Inadequate oral intake Etiology Chronic disease, COVID-19 As Evidenced by Signs and Symptoms pt eating<25% of meals Is patient on ventilator? No Is Patient Ambulatory and/or Out of Bed No REE-([facility]-confined to bed) 2288.544 Kcal/Kg value to use for calculation 12 Approximate Energy Requirements Using 1692 kcal/Kg Calculation Used for Recommendations Kcal/kg Additional Notes Protein: greater than 115g (>1 .2g/kg AdjBW 95.5kg) Fluid: 1000-1500ml or per MD Nutrition Intervention Change Diet Order: Continue Add Supplement/Snack (indicate name/kcal Glucerna BID /protein ) Provides kCal: 440 Provides Protein (gm) 20 Goal #1 Meet at least 75% of protein and energy needs via PO and ONS intakes Anticipated Discharge Needs: Unable to determine at this time Follow-Up By: 08/24/20 Additional Comments FU for intakes, ONS tolerance, food prefrences and renal labs
--- NOTE | 2020-08-24 05:29 | Vascular Lab Report ---
DUPLEX DOPPLER LOWER EXTREMITY VEINS, BILATERAL INDICATION: Lower extremity pain/swelling. TECHNIQUE: Duplex doppler imaging was performed through the veins of both lower extremities using venous isabelle bushra and other maneuvers. COMPARISON: None available. FINDINGS: Right Common femoral vein: Negative. Right Superficial femoral vein: Negative. Right Popliteal vein: Negative. Right Calf veins: Negative. Left Common femoral vein: Negative. Left Superficial femoral vein: Negative. Left Popliteal vein: Negative. Left Calf veins: Negative. Additional findings: None. IMPRESSION: Negative for DVT. Signer Name: Reggie Jarvis MD Signed: 08/24/2020 5:25 AM Workstation Name: [id number]
[2020-08-24] MEDS: ALBUTEROL 2.5 MG/3 ML NEBU IH SCH ×4 (05:31→20:45)
--- NOTE | 2020-08-24 05:32 | Ultrasound Report ---
ULTRASOUND RENAL INDICATION: renal failure. COMPARISON: No relevant prior imaging study available. FINDINGS: RIGHT KIDNEY: Size: 12.8 cm. Echogenicity: Increased.. Cortical thickness: 8 mm.. Hydronephrosis: None. Cyst or mass: Upper pole cyst 4.1 cm simple. Mildly complex midpole cysts measures 4.1 cm. Stones: N one. LEFT KIDNEY: Size: 11 cm. Echogenicity: Increased. Cortical thickness: 14 mm. Hydronephrosis: None. Cyst or mass: None. Stones: None. Urinary Bladder: No significant abnormality. Free Fluid: None. Additional Findings: None. IMPRESSION 1. Negative for obstruction. 2. Increased cortical echogenicity compatible chronic medical renal disease. Cortical thinning on the right.. 3. Mildly complex midpole cyst. Follow-up ultrasound recommended at 6 months. Signer Name: Reggie Jarvis MD Signed: 08/24/2020 5:27 AM Workstation Name: [id number]
[2020-08-24] MEDS: HEPARIN 5,000 UNIT/1 ML VIAL SUB-Q SCH (05:56)
[2020-08-24 06:30] LABS: Hematocrit 31.9 % (30.3-42.9); Mean Corpuscular HGB Conc 32 % (30-34); Mean Corpuscular Volume 84 fl (79-97); Platelet Count 259 K/mm3 (140-440); Red Blood Count 3.81 M/mm3 (3.65-5.03); Red Cell Distribution Width 15.2 % (13.2-15.2)
[2020-08-24 06:52] LABS: Calcium 8.3 mg/dL (8.4-10.2)
[2020-08-24] MEDS ORDERED: SODIUM CHLORIDE 0.9% 100 ML IV PRN (08:20)
[2020-08-24] MEDS: INSULIN LISPRO 100 UNIT/ML SUB-Q SCH ×4 (08:24→23:20)
[2020-08-24] MEDS: INSULIN GLARGINE 100 UNITS/ML SUB-Q SCH (08:27)
--- NOTE | 2020-08-24 08:49 | XRay Report ---
XR chest 1V ap INDICATION / CLINICAL INFORMATION: Cough, wheezing. COMPARISON: 08/21/2020 FINDINGS: SUPPORT DEVICES: None HEART /PULMONARY VASCULATURE: Unchanged. LUNGS / PLEURA: The lung volumes remain. There are similar diffuse pulmonary airspace opacities. No s izable pleural effusion. No pneumothorax. IMPRESSION: Low lung volumes with similar bilateral pulmonary airspace opacities. Signer Name: Jesus Radford MD Signed: 08/24/2020 8:45 AM Workstation Name: [id number]
--- NOTE | 2020-08-24 09:55 | Progress Note ---
Assessment and Plan Assessment and plan: -S/p azithromycin and ceftriaxone -Steroid therapy -Unable to obtain CTA chest due to allergy -Eliquis twice daily -Wean supplemental oxygenation as tolerated -Bilateral lower extremity Doppler ultrasounds negative for DVT -HD per nephrology -Long-acting insulin, SSI -Prone as tolerated DVT/GI prophylaxis: SCDs to BLE while in bed, PPI, Eliquis twice daily Disposition: TTF The high probability of a clinically significant, sudden or life threatening deterioration of the [multi] system(s) required my full and direct attention, intervention and personal management. The aggregate critical care time was [35] minutes. This time is in addition to time spent performing reported procedures but includes the following: [x] Data Review and interpretation [x] Patient assessment and monitoring of vital signs [x] Documentation [x] Medication orders and management History Interval history: This is a 64-year-old female with hypertension, diabetes, COPD, CVA, gout, hyperlipidemia who presented to the emergency department on 08/15 for a productive cough, wheezing, headache, subjective fevers scratchy throat ongoing for 4 weeks since 07/21/2020 s/p Z-Bipin and steroids who was COVID-19 positive prior to admission. Pulmonology, infectious disease, nephrology were consulted. 08/24: Patient remains on HFNC at 40L, 80% FiO2, her ddimer>75053 and her BLE Doppler US (-) for DVT. Unable to obtain a CTA chest due to allergy to contrast. We will treat Eliquis 5 mg twice daily. Wean supplemental oxygenation as tolerated. Patient will be transferred to the floor today. 08/23: Patient complains of cough, intermittent shortness of breath, received hemodialysis today and remains on high flow nasal cannula at 40 L, 80%. No acute events reported overnight. VQ scan and bilateral lower extremity Doppler ultrasound pending 08/22: High flow nasal cannula, intermittent HD, high-dose steroids 08/21: High flow nasal cannula 08/20:-High flow nasal cannula 08/19:-High flow nasal cannula, PICC line ordered, bicarb 08/18: High flow nasal cannula, transferred to ICU 08/17: Hypoxia,-nasal cannula 08/16: High flow nasal cannula, Vas-Cath placement for intermittent HD, COVID-19 PCR positive COVID-19 pneumonia Hypokalemia Acute hypoxic respiratory failure Acute kidney injury superimposed on CKD Leukocytosis Elevated D-dimer Mild transaminitis Hyponatremia Hypochloremia Hyperglycemia Hypertension Diabetes mellitus COPD Hyperlipidemia Gout Hospitalist Physical - Constitutional Vitals: Temp Pulse Resp BP Pulse Ox 98 F 103 H 22 129/70 98 08/24/20 08:00 08/24/20 08:53 08/24/20 08:53 08/24/20 07:30 08/24/20 08:40 General appearance: Present: no acute distress, well-nourished, obese - EENT Eyes: Present: EOM intact ENT: clear oral mucosa - Neck Neck: Present: normal ROM - Respiratory Respiratory effort: normal Respiratory: bilateral: diminished - Cardiovascular Rhythm: regular Heart Sounds: Present: S1 & S2. Absent: systolic murmur, diastolic murmur - Extremities Extremities: no ischemia, pulses intact, pulses symmetrical, normal temperature, normal color, Full ROM Peripheral Pulses: within normal limits - Abdominal General gastrointestinal: soft, non-tender, non-distended, normal bowel sounds - Integumentary Integumentary: Present: clear, warm, dry - Psychiatric Psychiatric: cooperative - Neurologic Neurologic: CNII-XII intact, no focal deficits, moves all extremities - Allied Health Allied health notes reviewed: nursing, RT, case management Results - Labs CBC & Chem 7: 08/24/20 06:06 08/24/20 06:06 Labs: Laboratory Last Values WBC 17.9 K/mm3 (4.5-11.0) H 08/24/20 06:06 RBC 3.81 M/mm3 (3.65-5.03) 08/24/20 06:06 Hgb 10.0 gm/dl (10.1-14.3) L 08/24/20 06:06 Hct 31.9 % (30.3-42.9) 08/24/20 06:06 MCV 84 fl (79-97) 08/24/20 06:06 MCH 26 pg (28-32) L 08/24/20 06:06 MCHC 32 % (30-34) 08/24/20 06:06 RDW 15.2 % (13.2-15.2) 08/24/20 06:06 Plt Count 259 K/mm3 (140-440) 08/24/20 06:06 Lymph % (Auto) 5.9 % (13.4-35.0) L 08/18/20 08:36 [place] % (Auto) 6.6 % (0.0-7.3) 08/18/20 08:36 Eos % (Auto) 0.0 % (0.0-4.3) 08/18/20 08:36 Baso % (Auto) 0.2 % (0.0-1.8) 08/18/20 08:36 Lymph # (Auto) 0.5 K/mm3 (1.2-5.4) L 08/18/20 08:36 [place] # (Auto) 0.6 K/mm3 (0.0-0.8) 08/18/20 08:36 Eos # (Auto) 0.0 K/mm3 (0.0-0.4) 08/18/20 08:36 Baso # (Auto) 0.0 K/mm3 (0.0-0.1) 08/18/20 08:36 Add Manual Diff Complete 08/19/20 04:23 Total Counted 100 08/19/20 04:23 Seg Neutrophils % 87.3 % (40.0-70.0) H 08/18/20 08:36 Seg Neuts % (Manual) 84.0 % (40.0-70.0) H 08/19/20 04:23 Band Neutrophils % 3.0 % 08/19/20 04:23 Lymphocytes % (Manual) 9.0 % (13.4-35.0) L 08/19/20 04:23 Monocytes % (Manual) 4.0 % (0.0-7.3) 08/19/20 04:23 Nucleated RBC % Not Reportable 08/19/20 04:23 Seg Neutrophils # 7.4 K/mm3 (1.8-7.7) 08/18/20 08:36 Seg Neutrophils # Man 5.0 K/mm3 (1.8-7.7) 08/19/20 04:23 Band Neutrophils # 0.2 K/mm3 08/19/20 04:23 Lymphocytes # (Manual) 0.5 K/mm3 (1.2-5.4) L 08/19/20 04:23 Abs React Lymphs (Man) 0.0 K/mm3 08/19/20 04:23 Monocytes # (Manual) 0.2 K/mm3 (0.0-0.8) 08/19/20 04:23 Eosinophils # (Manual) 0.0 K/mm3 (0.0-0.4) 08/19/20 04:23 Basophils # (Manual) 0.0 K/mm3 (0.0-0.1) 08/19/20 04:23 Metamyelocytes # 0.0 K/mm3 08/19/20 04:23 Myelocytes # 0.0 K/mm3 08/19/20 04:23 Promyelocytes # 0.0 K/mm3 08/19/20 04:23 Blast Cells # 0.0 K/mm3 08/19/20 04:23 WBC Morphology Not Reportable 08/19/20 04:23 Hypersegmented Neuts Not Reportable 08/19/20 04:23 Hyposegmented Neuts Not Reportable 08/19/20 04:23 Hypogranular Neuts Not Reportable 08/19/20 04:23 Smudge Cells Not Reportable 08/19/20 04:23 Toxic Granulation Not Reportable 08/19/20 04:23 Toxic Vacuolation Not Reportable 08/19/20 04:23 Dohle Bodies Not Reportable 08/19/20 04:23 Pelger-Huet Anomaly Not Reportable 08/19/20 04:23 Shannon Rods Not Reportable 08/19/20 04:23 Platelet Estimate Consistent w auto 08/19/20 04:23 Clumped Platelets Not Reportable 08/19/20 04:23 Plt Clumps, EDTA Not Reportable 08/19/20 04:23 Large Platelets Not Reportable 08/19/20 04:23 Giant Platelets Not Reportable 08/19/20 04:23 Platelet Satelliting Not Reportable 08/19/20 04:23 Plt Morphology Comment Not Reportable 08/19/20 04:23 RBC Morphology Not Reportable 08/19/20 04:23 Dimorphic RBCs Not Reportable 08/19/20 04:23 Polychromasia Not Reportable 08/19/20 04:23 Hypochromasia Not Reportable 08/19/20 04:23 Poikilocytosis 1+ 08/19/20 04:23 Anisocytosis 1+ 08/19/20 04:23 Microcytosis Not Reportable 08/19/20 04:23 Macrocytosis Not Reportable 08/19/20 04:23 Spherocytes Not Reportable 08/19/20 04:23 Pappenheimer Bodies Not Reportable 08/19/20 04:23 Sickle Cells Not Reportable 08/19/20 04:23 Target Cells Not Reportable 08/19/20 04:23 Tear Drop Cells Rare 08/19/20 04:23 Ovalocytes Few 08/19/20 04:23 Helmet Cells Not Reportable 08/19/20 04:23 [place] Bodies Not Reportable 08/19/20 04:23 [place] Rings Not Reportable 08/19/20 04:23 Cristal Cells 1+ 08/19/20 04:23 Bite Cells Not Reportable 08/19/20 04:23 Crenated Cell Not Reportable 08/19/20 04:23 Elliptocytes Few 08/19/20 04:23 Acanthocytes (Spur) Not Reportable 08/19/20 04:23 Rouleaux Not Reportable 08/19/20 04:23 Hemoglobin C Crystals Not Reportable 08/19/20 04:23 Schistocytes Not Reportable 08/19/20 04:23 Malaria parasites Not Reportable 08/19/20 04:23 Mateusz Bodies Not Reportable 08/19/20 04:23 Hem Pathologist Commnt No 08/19/20 04:23 D-Dimer > 77090 ng/mlDDU (0-234) H 08/23/20 14:07 VBG pH 7.389 (7.320-7.420) 08/15/20 17:12 Sodium 137 mmol/L (137-145) 08/24/20 06:06 Potassium 5.2 mmol/L (3.6-5.0) H 08/24/20 06:06 Chloride 94.8 mmol/L (98-107) L 08/24/20 06:06 Carbon Dioxide 26 mmol/L (22-30) 08/24/20 06:06 Anion Gap 21 mmol/L 08/24/20 06:06 BUN 79 mg/dL (7-17) H 08/24/20 06:06 Creatinine 7.9 mg/dL (0.6-1.2) H 08/24/20 06:06 Estimated GFR 6 ml/min 08/24/20 06:06 BUN/Creatinine Ratio 10 % 08/24/20 06:06 Glucose 230 mg/dL (65-100) H 08/24/20 06:06 POC Glucose 206 mg/dL (70-105) H 08/23/20 21:18 Hemoglobin A1c 7.6 % (4-6) H 08/16/20 04:32 Lactic Acid 1.30 mmol/L (0.7-2.0) 08/15/20 17:01 Calcium 8.3 mg/dL (8.4-10.2) L 08/24/20 06:06 Phosphorus 5.90 mg/dL (2.5-4.5) H 08/17/20 09:35 Ferritin 1053.0 ng/mL (10.0-200.0) H 08/23/20 14:07 Total Bilirubin < 0.20 mg/dL (0.1-1.2) 08/19/20 04:23 AST 40 units/L (5-40) 08/19/20 04:23 ALT 13 units/L (7-56) 08/19/20 04:23 Alkaline Phosphatase 58 units/L (35-129) 08/19/20 04:23 Lactate Dehydrogenase 994 units/L (91-180) H 08/23/20 14:07 C-Reactive Protein 0.80 mg/dL (0.00-1.30) 08/23/20 14:07 Total Protein 5.8 g/dL (6.3-8.2) L 08/19/20 04:23 Albumin 2.5 g/dL (3.9-5) L 08/19/20 04:23 Albumin/Globulin Ratio 0.8 % 08/19/20 04:23 Procalcitonin 2.11 ng/mL (<0.15) 08/15/20 17:01 PTH Intact 452.6 pg/mL (15-65) H 08/17/20 09:35 Urine Color Yellow (Yellow) 08/17/20 17:45 Urine Turbidity Turbid (Clear) 08/17/20 17:45 Urine pH 5.0 (5.0-7.0) 08/17/20 17:45 Ur Specific [place] 1.039 (1.003-1.030) H 08/17/20 17:45 Urine Protein >500 mg/dL (Negative) 08/17/20 17:45 Urine Glucose (UA) 50 mg/dL (Negative) 08/17/20 17:45 Urine Ketones Neg mg/dL (Negative) 08/17/20 17:45 Urine Blood Neg (Negative) 08/17/20 17:45 Urine Nitrite Neg (Negative) 08/17/20 17:45 Urine Bilirubin Neg (Negative) 08/17/20 17:45 Urine Urobilinogen < 2.0 mg/dL (<2.0) 08/17/20 17:45 Ur Leukocyte Esterase Neg (Negative) 08/17/20 17:45 Urine WBC (Auto) 32.0 /HPF (0.0-6.0) H 08/17/20 17:45 Urine RBC (Auto) 32.0 /HPF (0.0-6.0) 08/17/20 17:45 U Epithel Cells (Auto) 44.0 /HPF (0-13.0) H 08/17/20 17:45 Urine Bacteria (Auto) 2+ /HPF (Negative) 08/17/20 17:45 Urine Creatinine 248.0 mg/dL (0.1-20.0) H 08/17/20 17:45 Urine Total Protein 196 mg/dL (5-11.8) H 08/17/20 17:45 Coronavirus (PCR) Positive (Negative) A 08/16/20 Unknown Hepatitis A IgM Ab Non-reactive (NonReactive) 08/16/20 21:00 Hep Bs Antigen Non-reactive (Negative) 08/16/20 21:00 Hep B Core IgM Ab Non-reactive (NonReactive) 08/16/20 21:00 Hepatitis C Antibody Non-reactive (NonReactive) 08/16/20 21:00 Odom/IV: Voiding Method Bedpan Active Medications - Current Medications Current Medications: Generic Name Dose Route Start Last Admin Trade Name Freq PRN Reason Stop Dose Admin Acetaminophen 650 mg 08/15/20 22:16 08/19/20 01:17 Acetaminophen 325 Mg Tab PO 650 mg Q4H PRN Administration Pain MILD(1-3)/Fever >100.5/TELLO Hydrocodone Bitart/Acetaminophen 1 each 08/15/20 22:06 08/23/20 17:22 Hydrocodone/Acetaminophen 5-325 Mg Tab PO 1 each Q6HR PRN Administration Pain, Moderate (4-6) Albuterol 2.5 mg 08/17/20 19:26 08/24/20 08:41 Albuterol 2.5 Mg/3 Ml Nebu IH 2.5 mg Q6HRT SYLVAIN Administration Ascorbic Acid 1,000 mg 08/15/20 23:00 08/23/20 21:09 Ascorbic Acid 500 Mg Tab PO 1,000 mg BID SYLVAIN Administration Calcitriol 0.25 mcg 08/18/20 10:00 08/23/20 09:14 Calcitriol 0.25 Mcg Cap PO 0.25 mcg QDAY SYLVAIN Administration Ezetimibe 10 mg 08/16/20 10:00 08/23/20 09:12 Ezetimibe 10 Mg Tab PO 10 mg DAILY SYLVAIN Administration Heparin Sodium (Porcine) 5,000 unit 08/19/20 14:00 08/24/20 05:56 Heparin 5,000 Unit/1 Ml Vial SUB-Q 5,000 unit Q8HR SYLVAIN Administration Hydromorphone HCl 0.5 mg 08/15/20 22:16 Hydromorphone 1 Mg/1 Ml Inj IV Q3H PRN Pain , Severe (7-10) Dexamethasone 20 mg/ Sodium 55 mls @ 100 mls/hr 08/18/20 15:00 08/23/20 21:50 Chloride IV 08/25/20 14:59 Infused Q12HR SYLVAIN Infusion Norepinephrine 4 mg in 250 mls @ 7.5 mls/hr 08/19/20 10:00 Levophed Drip 4 Mg/Ns 250 Ml IV TITR SYLVAIN Protocol 2 MCG/MIN Sodium Chloride 100 mls @ 999 mls/hr 08/24/20 08:20 Nacl 0.9% IV SARAI PRN Hypotension Insulin Glargine 35 units 08/24/20 08:00 08/24/20 08:27 Insulin Glargine 100 Units/Ml SUB-Q 35 units QAMDIAB SYLVAIN Administration Insulin Human Lispro 0 unit 08/18/20 13:23 08/24/20 08:24 Insulin Lispro 100 Unit/Ml SUB-Q 3 unit ACHS SYLVAIN Administration Protocol Linagliptin 5 mg 08/16/20 10:00 08/23/20 09:13 Linagliptin 5 Mg Tab PO 5 mg QDAY SYLVAIN Administration Metoclopramide HCl 5 mg 08/15/20 22:37 Metoclopramide 10 Mg/2 Ml Inj IV Q6H PRN Nausea And Vomiting Multivit/Ca Carb/B Cmplx/FA/Prenat 1 cap 08/18/20 10:00 08/23/20 09:14 Folic Acid/Vit B Comp W-C 1 Mg (Renal Caps) PO 1 cap DAILY SYLVAIN Administration Ondansetron HCl 4 mg 08/15/20 22:16 Ondansetron 4 Mg/2 Ml Inj IV Q8H PRN Nausea And Vomiting Oxycodone/Acetaminophen 1 tab 08/15/20 22:16 08/18/20 09:58 Oxycodone /Acetaminophen 5-325mg Tab PO 1 tab Q6H PRN Administration Pain, Moderate (4-6) Pantoprazole Sodium 40 mg 08/16/20 10:00 08/23/20 09:13 Pantoprazole 40 Mg Tab PO 40 mg DAILY SYLVAIN Administration Pravastatin Sodium 40 mg 08/16/20 10:00 08/23/20 09:13 Pravastatin 40 Mg Tab PO 40 mg DAILY SYLVAIN Administration Pseudoephedrine/Acetam/Chlorphenir 10 ml 08/18/20 10:30 08/23/20 17:21 Guaifenesin/Codeine 100-10mg Oral Liqd 5 Ml PO 10 ml Q4H PRN Administration Cough Sodium Chloride 10 ml 08/15/20 23:00 08/23/20 21:09 Sodium Chloride 0.9% 10 Ml Flush Syringe IV 10 ml BID SYLVAIN Administration Sodium Chloride 10 ml 08/15/20 22:16 Sodium Chloride 0.9% 10 Ml Flush Syringe IV PRN PRN LINE FLUSH Zinc Sulfate 220 mg 08/15/20 23:00 08/23/20 21:09 Zinc Sulfate 220 Mg Cap PO 220 mg BID SYLVAIN Administration Nutrition/Malnutrition Assess - Dietary Evaluation Nutrition/Malnutrition Findings: Nutrition Notes Start: 08/22/20 12:53 Freq: Status: Active Protocol: Document 08/22/20 12:53 (Rec: 08/22/20 13:03 DEAN [email or web address]) Nutrition Notes Need for Assessment generated from: LOS Initial or Follow up Assessment Current Diagnosis Acute Kidney Injury,CKD(stage I-IV),COPD,Diabetes, Respiratory Failure Other Pertinent Diagnosis COVID, pneu Current Diet Cardiac, Consistent CHO Labs/Tests 08/19: BUN 86 Cr 9.2 POC BG 257 Pertinent Medications Humalog Renal caps Zinc Vitamin D Height 5 ft 2 in Weight 141 kg [place] Body Weight (kg) 50.00 BMI 56.8 Weight Status Morbidly Obese Subjective/Other Information Screen for LOS. Per RN, pt eating with minimal intakes. Pt did not answer phone x2. Pt receiving HD today. Burn Absent Trauma Absent Current % PO Negligible Minimum of two criteria No physical signs of malnutrition #1 Nutrition Diagnosis Inadequate oral intake Etiology Chronic disease, COVID-19 As Evidenced by Signs and Symptoms pt eating<25% of meals Is patient on ventilator? No Is Patient Ambulatory and/or Out of Bed No REE-([facility]-confined to bed) 2288.544 Kcal/Kg value to use for calculation 12 Approximate Energy Requirements Using 1692 kcal/Kg Calculation Used for Recommendations Kcal/kg Additional Notes Protein: greater than 115g (>1 .2g/kg AdjBW 95.5kg) Fluid: 1000-1500ml or per MD Nutrition Intervention Change Diet Order: Continue Add Supplement/Snack (indicate name/kcal Glucerna BID /protein ) Provides kCal: 440 Provides Protein (gm) 20 Goal #1 Meet at least 75% of protein and energy needs via PO and ONS intakes Anticipated Discharge Needs: Unable to determine at this time Follow-Up By: 08/24/20 Additional Comments FU for intakes, ONS tolerance, food prefrences and renal labs
--- NOTE | 2020-08-24 09:59 | Progress Note ---
Assessment and Plan 64 y/o female with acute respiratory failure thought secondary to COVID, found to be positive 08/24/20: Markers remain elevated. IMS concerned about clot. dopplers negative so they have cleared with renal for CTA. Oxygenation not worse and I am not sure how aggressive weaning has been. Will attempt to do better today. HD per renal. Continue high dose steroids. Guarded prognosis. 08/23/20: Agree with HD again today. Wean FiO2 for sats >88% and patient comfort. Continue steroids at current dosing. Lantus for sugars. Will observe on HD again today. If anything, and a bed is needed, can transfer to step down. 08/22/20: HD per renal. Patient has questions about why she is requiring HD, please address with her if possible. Hopeful she will have several HD sessions back to back as I feel a lot of her most recent decline is from volume. COntinue High dose steroids but will extend out to 10 days. Increase lantus to help with sugars. Can likely be transferred to step down or back to the floor. 08/19/20: Ordered PICC line for use during HD if patient requires vasopressors. Most likely increase in oxygen secondary to volume from lack of appropriate HD secondary to hypotension. Will give a couple amps of bicarb to see if this will help with blood pressure and can wills off pressor use. Continue steroids. Agree with ID on increasing the dose. Guarded prognosis 08/18/20: Prone as tolerated during day and sleep prone at night. Continue supplemental O2. Steroids for 10 days. Hold on nebs. Needs RT consult for documentation of oxygen therapy and requirements. 08/17/20: Found to be positive. Same recs as yesterday. Likely not a candidate for remdesivir given renal function. No nebulizer therapy, only inhaler therapy if and when needed. Continue supplemental O2 and proning is mcknight. Guarded prognosis given renal failure. 1. Follow up covid testing 2. Ok with current steroids 3. If patient brought in home inhalers, please allow pharmacy to verify and use them, no neb treatments 4. Prone during the day and and sleep prone at night as tolerated. Guarded prognosis. Subjective Date of service: 08/24/20 Principal diagnosis: Acute respiratory failure with hypoxia, ANGELIQUE superimposed onCKD, Covid pneum Interval history: No acute events. Got HD yesterday. No weaning done on HFNC. Remainder is negative. Objective Vital Signs - 12hr 08/23/20 08/23/20 08/23/20 22:00 22:30 23:00 Temperature Pulse Rate 92 H 91 H 88 Pulse Rate [ Anterior Bilateral Throughout] Pulse Rate [ From Monitor] Respiratory 42 H 43 H 24 Rate Respiratory Rate [Anterior Bilateral Throughout] Blood Pressure 130/69 130/69 130/69 O2 Sat by Pulse 96 97 95 Oximetry 08/23/20 08/23/20 08/23/20 23:17 23:30 23:38 Temperature Pulse Rate 86 83 89 Pulse Rate [ Anterior Bilateral Throughout] Pulse Rate [ From Monitor] Respiratory 25 H 26 H 22 Rate Respiratory Rate [Anterior Bilateral Throughout] Blood Pressure 110/56 130/64 130/64 O2 Sat by Pulse 96 96 97 Oximetry 08/23/20 08/24/20 08/24/20 23:44 00:00 00:30 Temperature 98.3 F Pulse Rate 85 81 Pulse Rate [ Anterior Bilateral Throughout] Pulse Rate [ 85 From Monitor] Respiratory 22 25 H Rate Respiratory Rate [Anterior Bilateral Throughout] Blood Pressure 131/70 115/68 O2 Sat by Pulse 98 96 Oximetry 08/24/20 08/24/20 08/24/20 00:47 01:00 01:30 Temperature Pulse Rate 79 76 Pulse Rate [ Anterior Bilateral Throughout] Pulse Rate [ From Monitor] Respiratory 25 H 25 H Rate Respiratory Rate [Anterior Bilateral Throughout] Blood Pressure 119/66 123/65 O2 Sat by Pulse 93 96 97 Oximetry 08/24/20 08/24/20 08/24/20 02:00 02:30 03:00 Temperature Pulse Rate 80 77 79 Pulse Rate [ Anterior Bilateral Throughout] Pulse Rate [ From Monitor] Respiratory 22 24 20 Rate Respiratory Rate [Anterior Bilateral Throughout] Blood Pressure 117/63 112/59 109/64 O2 Sat by Pulse 97 96 97 Oximetry 08/24/20 08/24/20 08/24/20 03:30 04:00 04:30 Temperature 99.3 F Pulse Rate 73 82 79 Pulse Rate [ Anterior Bilateral Throughout] Pulse Rate [ 82 From Monitor] Respiratory 23 24 23 Rate Respiratory Rate [Anterior Bilateral Throughout] Blood Pressure 126/58 111/63 108/61 O2 Sat by Pulse 97 97 97 Oximetry 08/24/20 08/24/20 08/24/20 05:00 05:30 06:00 Temperature Pulse Rate 77 81 78 Pulse Rate [ Anterior Bilateral Throughout] Pulse Rate [ From Monitor] Respiratory 22 25 H 25 H Rate Respiratory Rate [Anterior Bilateral Throughout] Blood Pressure 115/67 126/57 119/65 O2 Sat by Pulse 97 98 98 Oximetry 08/24/20 08/24/20 08/24/20 06:30 07:00 07:30 Temperature Pulse Rate 81 84 85 Pulse Rate [ Anterior Bilateral Throughout] Pulse Rate [ From Monitor] Respiratory 31 H 22 27 H Rate Respiratory Rate [Anterior Bilateral Throughout] Blood Pressure 124/58 126/67 129/70 O2 Sat by Pulse 96 98 98 Oximetry 08/24/20 08/24/20 08/24/20 08:00 08:40 08:53 Temperature 98 F Pulse Rate Pulse Rate [ 103 H Anterior Bilateral Throughout] Pulse Rate [ From Monitor] Respiratory Rate Respiratory 22 Rate [Anterior Bilateral Throughout] Blood Pressure O2 Sat by Pulse 98 Oximetry Constitutional: alert, other (obese, critically ill on ventilator) Eyes: non-icteric ENT: oropharynx moist Neck: supple Effort: normal Ascultation: Bilateral: diminished breath sounds Cardiovascular: regular rate and rhythm (no mrg) Gastrointestinal: normoactive bowel sounds, soft, non-tender, non-distended Integumentary: normal Extremities: no cyanosis, no edema Neurologic: normal mental status, non-focal exam Psychiatric: mood appropriate, affect normal CBC and BMP: 08/24/20 06:06 08/24/20 06:06 ABG, PT/INR, D-dimer: PT/INR, D-dimer D-Dimer > 57436 ng/mlDDU (0-234) H 08/23/20 14:07 Abnormal lab findings: Abnormal Labs 08/15/20 08/15/20 08/15/20 17:01 17:01 17:01 WBC RBC Hgb Hct MCH RDW 15.8 H Lymph % (Auto) 7.4 L Lymph # (Auto) 0.7 L Seg Neutrophils % 85.1 H Seg Neuts % (Manual) Lymphocytes % (Manual) Seg Neutrophils # 7.9 H Lymphocytes # (Manual) D-Dimer 1750.12 H Sodium Potassium 5.1 H Chloride 97.1 L Carbon Dioxide BUN 67 H Creatinine 4.8 H Glucose 101 H POC Glucose Hemoglobin A1c Calcium Phosphorus Ferritin AST 53 H Lactate Dehydrogenase C-Reactive Protein Total Protein Albumin 3.4 L PTH Intact Ur Specific Gypsy Urine WBC (Auto) U Epithel Cells (Auto) Urine Creatinine Urine Total Protein Coronavirus (PCR) 08/15/20 08/15/20 08/15/20 17:01 17:01 17:01 WBC RBC Hgb Hct MCH RDW Lymph % (Auto) Lymph # (Auto) Seg Neutrophils % Seg Neuts % (Manual) Lymphocytes % (Manual) Seg Neutrophils # Lymphocytes # (Manual) D-Dimer Sodium Potassium Chloride Carbon Dioxide BUN Creatinine Glucose 101 H POC Glucose Hemoglobin A1c Calcium Phosphorus Ferritin 667.2 H AST Lactate Dehydrogenase 606 H 567 H C-Reactive Protein 4.60 H 6.30 H Total Protein Albumin PTH Intact Ur Specific [place] Urine WBC (Auto) U Epithel Cells (Auto) Urine Creatinine Urine Total Protein Coronavirus (PCR) 08/16/20 08/16/20 08/16/20 04:32 04:32 04:32 WBC RBC Hgb Hct MCH 27 L RDW 15.9 H Lymph % (Auto) 12.6 L Lymph # (Auto) 0.8 L Seg Neutrophils % 83.7 H Seg Neuts % (Manual) Lymphocytes % (Manual) Seg Neutrophils # Lymphocytes # (Manual) D-Dimer Sodium 136 L Potassium 6.7 H* D Chloride Carbon Dioxide BUN 78 H Creatinine 6.2 H Glucose 223 H POC Glucose Hemoglobin A1c 7.6 H Calcium 7.8 L Phosphorus Ferritin AST 47 H Lactate Dehydrogenase C-Reactive Protein Total Protein 5.8 L D Albumin 3.1 L PTH Intact Ur Specific [place] Urine WBC (Auto) U Epithel Cells (Auto) Urine Creatinine Urine Total Protein Coronavirus (PCR) 08/16/20 08/16/20 08/16/20 17:01 17:05 21:41 WBC RBC Hgb Hct MCH RDW Lymph % (Auto) Lymph # (Auto) Seg Neutrophils % Seg Neuts % (Manual) Lymphocytes % (Manual) Seg Neutrophils # Lymphocytes # (Manual) D-Dimer Sodium Potassium Chloride Carbon Dioxide BUN 93 H Creatinine 7.7 H Glucose 228 H POC Glucose 150 H 204 H Hemoglobin A1c Calcium Phosphorus Ferritin AST Lactate Dehydrogenase C-Reactive Protein Total Protein Albumin PTH Intact Ur Specific [place] Urine WBC (Auto) U Epithel Cells (Auto) Urine Creatinine Urine Total Protein Coronavirus (PCR) 08/16/20 08/17/20 08/17/20 Unknown 07:31 07:31 WBC RBC Hgb Hct MCH 27 L RDW 16.0 H Lymph % (Auto) 4.2 L Lymph # (Auto) 0.4 L Seg Neutrophils % 90.0 H Seg Neuts % (Manual) Lymphocytes % (Manual) Seg Neutrophils # 8.8 H Lymphocytes # (Manual) D-Dimer Sodium Potassium 5.8 H D Chloride Carbon Dioxide 20 L BUN 103 H Creatinine 9.0 H Glucose 219 H POC Glucose Hemoglobin A1c Calcium 7.9 L Phosphorus Ferritin AST Lactate Dehydrogenase C-Reactive Protein Total Protein Albumin PTH Intact Ur Specific [place] Urine WBC (Auto) U Epithel Cells (Auto) Urine Creatinine Urine Total Protein Coronavirus (PCR) Positive A 08/17/20 08/17/20 08/17/20 07:44 09:35 09:35 WBC RBC Hgb Hct MCH RDW Lymph % (Auto) Lymph # (Auto) Seg Neutrophils % Seg Neuts % (Manual) Lymphocytes % (Manual) Seg Neutrophils # Lymphocytes # (Manual) D-Dimer Sodium Potassium Chloride Carbon Dioxide BUN Creatinine Glucose POC Glucose 188 H Hemoglobin A1c Calcium Phosphorus 5.90 H Ferritin AST Lactate Dehydrogenase C-Reactive Protein Total Protein Albumin PTH Intact 452.6 H Ur Specific [place] Urine WBC (Auto) U Epithel Cells (Auto) Urine Creatinine Urine Total Protein Coronavirus (PCR) 08/17/20 08/17/20 08/17/20 11:23 16:38 17:45 WBC RBC Hgb Hct MCH RDW Lymph % (Auto) Lymph # (Auto) Seg Neutrophils % Seg Neuts % (Manual) Lymphocytes % (Manual) Seg Neutrophils # Lymphocytes # (Manual) D-Dimer Sodium Potassium Chloride Carbon Dioxide BUN Creatinine Glucose POC Glucose 205 H 212 H Hemoglobin A1c Calcium Phosphorus Ferritin AST Lactate Dehydrogenase C-Reactive Protein Total Protein Albumin PTH Intact Ur Specific [place] 1.039 H Urine WBC (Auto) 32.0 H U Epithel Cells (Auto) 44.0 H Urine Creatinine Urine Total Protein Coronavirus (PCR) 08/17/20 08/17/20 08/18/20 17:45 21:39 08:00 WBC RBC Hgb Hct MCH RDW Lymph % (Auto) Lymph # (Auto) Seg Neutrophils % Seg Neuts % (Manual) Lymphocytes % (Manual) Seg Neutrophils # Lymphocytes # (Manual) D-Dimer Sodium Potassium Chloride Carbon Dioxide BUN Creatinine Glucose POC Glucose 206 H 229 H Hemoglobin A1c Calcium Phosphorus Ferritin AST Lactate Dehydrogenase C-Reactive Protein Total Protein Albumin PTH Intact Ur Specific [place] Urine WBC (Auto) U Epithel Cells (Auto) Urine Creatinine 248.0 H Urine Total Protein 196 H Coronavirus (PCR) 08/18/20 08/18/20 08/18/20 08:36 08:36 11:00 WBC RBC 3.64 L Hgb 10.0 L Hct MCH RDW 15.8 H Lymph % (Auto) 5.9 L Lymph # (Auto) 0.5 L Seg Neutrophils % 87.3 H Seg Neuts % (Manual) Lymphocytes % (Manual) Seg Neutrophils # Lymphocytes # (Manual) D-Dimer Sodium 135 L D Potassium Chloride 95.8 L Carbon Dioxide 20 L BUN 84 H Creatinine 8.4 H Glucose 262 H POC Glucose 238 H Hemoglobin A1c Calcium 7.5 L Phosphorus Ferritin AST Lactate Dehydrogenase C-Reactive Protein Total Protein 6.1 L Albumin 2.5 L PTH Intact Ur Specific [place] Urine WBC (Auto) U Epithel Cells (Auto) Urine Creatinine Urine Total Protein Coronavirus (PCR) 08/18/20 08/18/20 08/19/20 16:14 21:52 04:23 WBC RBC 3.53 L Hgb 9.5 L Hct 30.0 L MCH 27 L RDW 15.6 H Lymph % (Auto) Lymph # (Auto) Seg Neutrophils % Seg Neuts % (Manual) 84.0 H Lymphocytes % (Manual) 9.0 L Seg Neutrophils # Lymphocytes # (Manual) 0.5 L D-Dimer Sodium Potassium Chloride Carbon Dioxide BUN Creatinine Glucose POC Glucose 248 H 303 H Hemoglobin A1c Calcium Phosphorus Ferritin AST Lactate Dehydrogenase C-Reactive Protein Total Protein Albumin PTH Intact Ur Specific [place] Urine WBC (Auto) U Epithel Cells (Auto) Urine Creatinine Urine Total Protein Coronavirus (PCR) 08/19/20 08/19/20 08/19/20 04:23 06:44 11:53 WBC RBC Hgb Hct MCH RDW Lymph % (Auto) Lymph # (Auto) Seg Neutrophils % Seg Neuts % (Manual) Lymphocytes % (Manual) Seg Neutrophils # Lymphocytes # (Manual) D-Dimer Sodium Potassium Chloride 97.2 L Carbon Dioxide BUN 86 H Creatinine 9.2 H Glucose 271 H POC Glucose 213 H 266 H Hemoglobin A1c Calcium 7.5 L Phosphorus Ferritin AST Lactate Dehydrogenase C-Reactive Protein Total Protein 5.8 L Albumin 2.5 L PTH Intact Ur Specific [place] Urine WBC (Auto) U Epithel Cells (Auto) Urine Creatinine Urine Total Protein Coronavirus (PCR) 08/19/20 08/19/20 08/19/20 16:58 16:58 16:58 WBC RBC Hgb Hct MCH RDW Lymph % (Auto) Lymph # (Auto) Seg Neutrophils % Seg Neuts % (Manual) Lymphocytes % (Manual) Seg Neutrophils # Lymphocytes # (Manual) D-Dimer > 64252 H Sodium Potassium Chloride Carbon Dioxide BUN Creatinine Glucose POC Glucose Hemoglobin A1c Calcium Phosphorus Ferritin 1043.0 H AST Lactate Dehydrogenase 721 H C-Reactive Protein 3.00 H Total Protein Albumin PTH Intact Ur Specific [place] Urine WBC (Auto) U Epithel Cells (Auto) Urine Creatinine Urine Total Protein Coronavirus (PCR) 08/19/20 08/19/20 08/20/20 17:18 22:53 06:38 WBC RBC Hgb Hct MCH RDW Lymph % (Auto) Lymph # (Auto) Seg Neutrophils % Seg Neuts % (Manual) Lymphocytes % (Manual) Seg Neutrophils # Lymphocytes # (Manual) D-Dimer Sodium Potassium Chloride Carbon Dioxide BUN Creatinine Glucose POC Glucose 223 H 273 H 268 H Hemoglobin A1c Calcium Phosphorus Ferritin AST Lactate Dehydrogenase C-Reactive Protein Total Protein Albumin PTH Intact Ur Specific [place] Urine WBC (Auto) U Epithel Cells (Auto) Urine Creatinine Urine Total Protein Coronavirus (PCR) 08/20/20 08/20/20 08/20/20 08:21 11:47 15:46 WBC RBC Hgb Hct MCH RDW Lymph % (Auto) Lymph # (Auto) Seg Neutrophils % Seg Neuts % (Manual) Lymphocytes % (Manual) Seg Neutrophils # Lymphocytes # (Manual) D-Dimer Sodium Potassium Chloride Carbon Dioxide BUN Creatinine Glucose POC Glucose 264 H 288 H 262 H Hemoglobin A1c Calcium Phosphorus Ferritin AST Lactate Dehydrogenase C-Reactive Protein Total Protein Albumin PTH Intact Ur Specific [place] Urine WBC (Auto) U Epithel Cells (Auto) Urine Creatinine Urine Total Protein Coronavirus (PCR) 08/20/20 08/21/20 08/21/20 21:33 07:46 11:56 WBC RBC Hgb Hct MCH RDW Lymph % (Auto) Lymph # (Auto) Seg Neutrophils % Seg Neuts % (Manual) Lymphocytes % (Manual) Seg Neutrophils # Lymphocytes # (Manual) D-Dimer Sodium Potassium Chloride Carbon Dioxide BUN Creatinine Glucose POC Glucose 274 H 249 H 227 H Hemoglobin A1c Calcium Phosphorus Ferritin AST Lactate Dehydrogenase C-Reactive Protein Total Protein Albumin PTH Intact Ur Specific [place] Urine WBC (Auto) U Epithel Cells (Auto) Urine Creatinine Urine Total Protein Coronavirus (PCR) 08/21/20 08/21/20 08/22/20 17:19 21:34 08:48 WBC RBC Hgb Hct MCH RDW Lymph % (Auto) Lymph # (Auto) Seg Neutrophils % Seg Neuts % (Manual) Lymphocytes % (Manual) Seg Neutrophils # Lymphocytes # (Manual) D-Dimer Sodium Potassium Chloride Carbon Dioxide BUN Creatinine Glucose POC Glucose 318 H 286 H 257 H Hemoglobin A1c Calcium Phosphorus Ferritin AST Lactate Dehydrogenase C-Reactive Protein Total Protein Albumin PTH Intact Ur Specific [place] Urine WBC (Auto) U Epithel Cells (Auto) Urine Creatinine Urine Total Protein Coronavirus (PCR) 08/22/20 08/22/20 08/22/20 12:34 17:41 21:22 WBC RBC Hgb Hct MCH RDW Lymph % (Auto) Lymph # (Auto) Seg Neutrophils % Seg Neuts % (Manual) Lymphocytes % (Manual) Seg Neutrophils # Lymphocytes # (Manual) D-Dimer Sodium Potassium Chloride Carbon Dioxide BUN Creatinine Glucose POC Glucose 324 H 283 H 308 H Hemoglobin A1c Calcium Phosphorus Ferritin AST Lactate Dehydrogenase C-Reactive Protein Total Protein Albumin PTH Intact Ur Specific [place] Urine WBC (Auto) U Epithel Cells (Auto) Urine Creatinine Urine Total Protein Coronavirus (PCR) 08/23/20 08/23/20 08/23/20 05:24 05:47 05:47 WBC 13.7 H RBC Hgb 9.9 L Hct MCH 27 L RDW Lymph % (Auto) Lymph # (Auto) Seg Neutrophils % Seg Neuts % (Manual) Lymphocytes % (Manual) Seg Neutrophils # Lymphocytes # (Manual) D-Dimer Sodium 133 L Potassium Chloride 90.4 L Carbon Dioxide BUN 103 H Creatinine 9.5 H Glucose 346 H POC Glucose 297 H Hemoglobin A1c Calcium 7.9 L Phosphorus Ferritin AST Lactate Dehydrogenase C-Reactive Protein Total Protein Albumin PTH Intact Ur Specific [place] Urine WBC (Auto) U Epithel Cells (Auto) Urine Creatinine Urine Total Protein Coronavirus (PCR) 08/23/20 08/23/20 08/23/20 07:34 10:58 14:07 WBC RBC Hgb Hct MCH RDW Lymph % (Auto) Lymph # (Auto) Seg Neutrophils % Seg Neuts % (Manual) Lymphocytes % (Manual) Seg Neutrophils # Lymphocytes # (Manual) D-Dimer > 60628 H Sodium Potassium Chloride Carbon Dioxide BUN Creatinine Glucose POC Glucose 276 H 334 H Hemoglobin A1c Calcium Phosphorus Ferritin AST Lactate Dehydrogenase C-Reactive Protein Total Protein Albumin PTH Intact Ur Specific [place] Urine WBC (Auto) U Epithel Cells (Auto) Urine Creatinine Urine Total Protein Coronavirus (PCR) 08/23/20 08/23/20 08/23/20 14:07 14:07 15:54 WBC RBC Hgb Hct MCH RDW Lymph % (Auto) Lymph # (Auto) Seg Neutrophils % Seg Neuts % (Manual) Lymphocytes % (Manual) Seg Neutrophils # Lymphocytes # (Manual) D-Dimer Sodium Potassium Chloride Carbon Dioxide BUN Creatinine Glucose POC Glucose 248 H Hemoglobin A1c Calcium Phosphorus Ferritin 1053.0 H AST Lactate Dehydrogenase 994 H C-Reactive Protein Total Protein Albumin PTH Intact Ur Specific [place] Urine WBC (Auto) U Epithel Cells (Auto) Urine Creatinine Urine Total Protein Coronavirus (PCR) 08/23/20 08/24/20 08/24/20 21:18 06:06 06:06 WBC 17.9 H RBC Hgb 10.0 L Hct MCH 26 L RDW Lymph % (Auto) Lymph # (Auto) Seg Neutrophils % Seg Neuts % (Manual) Lymphocytes % (Manual) Seg Neutrophils # Lymphocytes # (Manual) D-Dimer Sodium Potassium 5.2 H Chloride 94.8 L Carbon Dioxide BUN 79 H Creatinine 7.9 H Glucose 230 H POC Glucose 206 H Hemoglobin A1c Calcium 8.3 L Phosphorus Ferritin AST Lactate Dehydrogenase C-Reactive Protein Total Protein Albumin PTH Intact Ur Specific [place] Urine WBC (Auto) U Epithel Cells (Auto) Urine Creatinine Urine Total Protein Coronavirus (PCR)
[2020-08-24] MEDS: PRAVASTATIN 40 MG TAB PO SCH (10:12)
[2020-08-24] MEDS: dexAMETHasone 20 MG in SODIUM CHLORIDE 0.9% 50 ML IV SCH ×2 (10:12→23:19)
[2020-08-24] MEDS: PANTOPRAZOLE 40 MG TAB PO SCH (10:12)
[2020-08-24] MEDS: FOLIC ACID/VIT B COMP W-C 1 MG (RENAL CAPS) PO SCH (10:13)
[2020-08-24] MEDS: CALCITRIOL 0.25 MCG CAP PO SCH (10:13)
[2020-08-24] MEDS: ASCORBIC ACID 500 MG TAB PO SCH ×2 (10:14→23:21)
[2020-08-24] MEDS: LINAGLIPTIN 5 MG TAB PO SCH (10:14)
[2020-08-24] MEDS: EZETIMIBE 10 MG TAB PO SCH (10:14)
[2020-08-24] MEDS: ZINC SULFATE 220 MG CAP PO SCH ×2 (10:15→23:22)
[2020-08-24] MEDS: APIXABAN 5 MG TAB PO SCH ×2 (12:27→23:20)
--- NOTE | 2020-08-24 12:53 | Progress Note ---
Assessment and Plan Cultures: SARS CoV2 PCR: positive 08/15/2020 blood culture: No growth 08/17/2020 urine culture: Skin fay A/P: 64-year-old female with hypertension, diabetes, COPD, prior CVA, CKD was admitted to the hospital with cough and shortness of breath along with wheezing and headache going on for almost a month: #Bilateral pneumonia: secondary to COVID-19. Test was positive as outpatient as well. Symptomatic for a month. s/p empiric abx. Given prolonged symptoms and renal failure, unlikely to benefit from Remdesivir #Acute hypoxic respiratory failure: on HFNC. #ANGELIQUE on CKD: On intermittent HD per nephrology. #Mild transaminitis: Probably from COVID-19. Hepatitis panel negative. Resolved. Recs: -continue steroids per pulmonary -s/p abx -prophylactic anticoagulation based on d-dimer per hospital protocol, d-dimer remains high, DVT scan negative Dale Suarez MD, FACP [facility] ([facility] O: [phone] F: [phone] Subjective Date of service: 08/24/20 Principal diagnosis: Acute respiratory failure with hypoxia, ANGELIQUE superimposed onCKD, Covid pneum Interval history: No fever. Remains on HFNC. Objective - Exam Narrative Exam: Physical Exam (reviewed in chart to minimize risk of transmission) Constitutional: deferred Head, Ears, Nose: deferred Eyes: deferred Neck: deferred Oral: deferred Cardiovascular: deferred Respiratory: deferred GI: deferred Musculoskeletal: deferred Skin: deferred Hem/Lymphatic: deferred Psych: deferred Neurological: deferred - Constitutional Vitals: Vital Signs Temp Pulse Resp BP Pulse Ox 99 F 113 H 35 H 113/65 92 08/24/20 12:00 08/24/20 10:30 08/24/20 10:30 08/24/20 10:30 08/24/20 10:30 Temperature -Last 24 Hours Temperature 99 F Temperature 98 F Temperature 99.3 F Temperature 98.3 F Temperature 98.0 F Temperature 98.8 F Temperature 98.7 F - Labs CBC & Chem 7: 08/24/20 06:06 08/24/20 06:06 Labs: Abnormal lab results 08/23/20 08/23/20 08/23/20 Range/Units 10:58 14:07 14:07 WBC (4.5-11.0) K/mm3 Hgb (10.1-14.3) gm/dl MCH (28-32) pg D-Dimer > 58637 H (0-234) ng/mlDDU Potassium (3.6-5.0) mmol/L Chloride (98-107) mmol/L BUN (7-17) mg/dL Creatinine (0.6-1.2) mg/dL Glucose (65-100) mg/dL POC Glucose 334 H (70-105) mg/dL Calcium (8.4-10.2) mg/dL Ferritin 1053.0 H (10.0-200.0) ng/mL Lactate Dehydrogenase (91-180) units/L 08/23/20 08/23/20 08/23/20 Range/Units 14:07 15:54 21:18 WBC (4.5-11.0) K/mm3 Hgb (10.1-14.3) gm/dl MCH (28-32) pg D-Dimer (0-234) ng/mlDDU Potassium (3.6-5.0) mmol/L Chloride (98-107) mmol/L BUN (7-17) mg/dL Creatinine (0.6-1.2) mg/dL Glucose (65-100) mg/dL POC Glucose 248 H 206 H (70-105) mg/dL Calcium (8.4-10.2) mg/dL Ferritin (10.0-200.0) ng/mL Lactate Dehydrogenase 994 H (91-180) units/L 08/24/20 08/24/20 08/24/20 Range/Units 06:06 06:06 07:44 WBC 17.9 H (4.5-11.0) K/mm3 Hgb 10.0 L (10.1-14.3) gm/dl MCH 26 L (28-32) pg D-Dimer (0-234) ng/mlDDU Potassium 5.2 H (3.6-5.0) mmol/L Chloride 94.8 L (98-107) mmol/L BUN 79 H (7-17) mg/dL Creatinine 7.9 H (0.6-1.2) mg/dL Glucose 230 H (65-100) mg/dL POC Glucose 199 H (70-105) mg/dL Calcium 8.3 L (8.4-10.2) mg/dL Ferritin (10.0-200.0) ng/mL Lactate Dehydrogenase (91-180) units/L 08/24/20 Range/Units 11:31 WBC (4.5-11.0) K/mm3 Hgb (10.1-14.3) gm/dl MCH (28-32) pg D-Dimer (0-234) ng/mlDDU Potassium (3.6-5.0) mmol/L Chloride (98-107) mmol/L BUN (7-17) mg/dL Creatinine (0.6-1.2) mg/dL Glucose (65-100) mg/dL POC Glucose 307 H (70-105) mg/dL Calcium (8.4-10.2) mg/dL Ferritin (10.0-200.0) ng/mL Lactate Dehydrogenase (91-180) units/L
--- NOTE | 2020-08-24 15:20 | Progress Note ---
Assessment and Plan Assessment and plan #Acute kidney injury: s/p hemodialysis daily x 2. Plan for repeat HD today with goal UF 2 L. Reassess daily for additional sessions. #Has underlying chronic kidney disease her baseline creatinine is around 1.7-[address] Rivers's office #Respiratory failure resulting from Covid 19 pneumonia + fluid overload- being followed by pulmonary service. UF with HD as tolerated. S/p 2 L removeddaily. Plan for CTA today with HD following. #Covid 19 viral pneumonia with ARDS like picture, patient has multiorgan failure, she will need ongoing renal replacement therapy as tolerated for now. Monitor labs and I/O daily. # Keep MAP> 65 # Renally dose medications # Renal diet Subjective Date of service: 08/24/20 Principal diagnosis: Acute respiratory failure with hypoxia, ANGELIQUE superimposed onCKD, Covid pneum Interval history: Tolerating daily HD without complications Sitting up in bed during visit Patient was seen for her renal issues Nursing, interdisciplinary and consult notes were reviewed Vitals, input and output, medications and labs were reviewed Objective - Exam Narrative Exam: General: No acute distress Neck: Supple, no JVD Extremity: No peripheral cyanosis, edema Neurological: Alert, awake, no asterixis Dermatology: No skin rash Psych: No agitation Musculoskeletal: No joint effusion - Vital Signs Vital signs: Vital Signs - 12hr 08/24/20 08/24/20 08/24/20 03:30 04:00 04:30 Temperature 99.3 F Pulse Rate 73 82 79 Pulse Rate [ Anterior Bilateral Throughout] Pulse Rate [ 82 From Monitor] Respiratory 23 24 23 Rate Respiratory Rate [Anterior Bilateral Throughout] Blood Pressure 126/58 111/63 108/61 O2 Sat by Pulse 97 97 97 Oximetry 08/24/20 08/24/20 08/24/20 05:00 05:30 06:00 Temperature Pulse Rate 77 81 78 Pulse Rate [ Anterior Bilateral Throughout] Pulse Rate [ From Monitor] Respiratory 22 25 H 25 H Rate Respiratory Rate [Anterior Bilateral Throughout] Blood Pressure 115/67 126/57 119/65 O2 Sat by Pulse 97 98 98 Oximetry 08/24/20 08/24/20 08/24/20 06:30 07:00 07:30 Temperature Pulse Rate 81 84 85 Pulse Rate [ Anterior Bilateral Throughout] Pulse Rate [ From Monitor] Respiratory 31 H 22 27 H Rate Respiratory Rate [Anterior Bilateral Throughout] Blood Pressure 124/58 126/67 129/70 O2 Sat by Pulse 96 98 98 Oximetry 08/24/20 08/24/20 08/24/20 08:00 08:30 08:40 Temperature 98 F Pulse Rate 106 H 96 H Pulse Rate [ Anterior Bilateral Throughout] Pulse Rate [ 96 H From Monitor] Respiratory 17 39 H Rate Respiratory Rate [Anterior Bilateral Throughout] Blood Pressure 132/66 122/67 O2 Sat by Pulse 95 100 98 Oximetry 08/24/20 08/24/20 08/24/20 08:53 09:00 09:30 Temperature Pulse Rate 98 H 107 H Pulse Rate [ 103 H Anterior Bilateral Throughout] Pulse Rate [ From Monitor] Respiratory 24 47 H Rate Respiratory 22 Rate [Anterior Bilateral Throughout] Blood Pressure 110/58 116/63 O2 Sat by Pulse 97 98 Oximetry 08/24/20 08/24/20 08/24/20 10:00 10:30 11:00 Temperature Pulse Rate 101 H 113 H 111 H Pulse Rate [ Anterior Bilateral Throughout] Pulse Rate [ From Monitor] Respiratory 25 H 35 H 38 H Rate Respiratory Rate [Anterior Bilateral Throughout] Blood Pressure 111/56 113/65 114/62 O2 Sat by Pulse 96 92 94 Oximetry 08/24/20 08/24/20 08/24/20 11:30 12:00 12:30 Temperature 99 F Pulse Rate 109 H 120 H 115 H Pulse Rate [ Anterior Bilateral Throughout] Pulse Rate [ 120 H From Monitor] Respiratory 36 H 38 H 29 H Rate Respiratory Rate [Anterior Bilateral Throughout] Blood Pressure 117/67 136/65 126/75 O2 Sat by Pulse 92 91 95 Oximetry 08/24/20 08/24/20 08/24/20 13:00 13:06 13:30 Temperature Pulse Rate 105 H 106 H Pulse Rate [ Anterior Bilateral Throughout] Pulse Rate [ From Monitor] Respiratory 29 H 27 H Rate Respiratory Rate [Anterior Bilateral Throughout] Blood Pressure 116/69 125/71 O2 Sat by Pulse 97 97 97 Oximetry 08/24/20 08/24/20 08/24/20 14:00 14:20 14:23 Temperature Pulse Rate 95 H Pulse Rate [ 97 H Anterior Bilateral Throughout] Pulse Rate [ From Monitor] Respiratory 27 H Rate Respiratory 23 Rate [Anterior Bilateral Throughout] Blood Pressure 129/71 O2 Sat by Pulse 99 95 Oximetry - Lab 08/24/20 06:06 08/24/20 06:06 Most recent lab results Calcium 8.3 mg/dL (8.4-10.2) L 08/24/20 06:06 Phosphorus 5.90 mg/dL (2.5-4.5) H 08/17/20 09:35 Urine Creatinine 248.0 mg/dL (0.1-20.0) H 08/17/20 17:45 Urine Total Protein 196 mg/dL (5-11.8) H 08/17/20 17:45 Medications & Allergies - Medications Allergies/Adverse Reactions: Allergies gabapentin [From Neurontin] Allergy (Verified 08/15/20 17:25) Unknown rosuvastatin calcium [From Crestor] Allergy (Verified 08/15/20 17:25) Rash fluticasone propionate [From Advair Diskus] Adverse Reaction (Verified 08/15/20 17:25) Headache salmeterol xinafoate [From Advair Diskus] Adverse Reaction (Verified 08/15/20 17:25) Headache IV DYE Allergy (Uncoded 08/24/20 10:28) Itching Home Medications: Home Medications Medication Instructions Recorded Confirmed Last Taken Type Colchicine [Colcrys] 0.6 mg PO DAILY 08/15/20 08/15/20 Unknown History Cyanocobalamin (Vitamin B-12) 1,000 mcg IJ QMONTH 08/15/20 08/15/20 Unknown History [Physicians Ez Use B-12] Ergocalciferol [Vitamin D2] 1 cap PO QWEEK 08/15/20 08/15/20 Unknown History Ezetimibe/Simvastatin 1 each PO DAILY 08/15/20 08/15/20 Unknown History [Ezetimibe-Simvastatin 10-20 mg] Famotidine [Pepcid] 40 mg PO DAILY 08/15/20 08/15/20 Unknown History Furosemide [Lasix] 40 mg PO BID 08/15/20 08/15/20 Unknown History HYDROcodone/APAP 5-325 [[place] 1 each PO Q6HR PRN 08/15/20 08/15/20 Unknown Hist ory 5/325] Linagliptin [Tradjenta] 5 mg PO QDAY 08/15/20 08/15/20 Unknown History Omeprazole 40 mg PO DAILY 08/15/20 08/15/20 Unknown History Potassium Chloride [K-Dur] 20 meq PO BID 08/15/20 08/15/20 Unknown History Valsartan [Diovan] 160 mg PO QDAY 08/15/20 08/15/20 Unknown History allopurinoL [Zyloprim] 200 mg PO DAILY 08/15/20 08/15/20 Unknown History carvediloL [Coreg] 3.125 mg PO BID 08/15/20 08/15/20 Unknown History Albuterol Sulfate [Proair 90 mcg INHALATION Q4H PRN 08/17/20 08/17/20 Unknown History Digihaler] Spiriva 2.5 mcg INHALATION DAILY 08/17/20 08/17/20 Unknown History Symbicort 160-4.5 Mcg Inhaler 160 mcg INHALATION BID 08/17/20 08/17/20 Unknown History Active Medications: Generic Name Dose Route Start Last Admin Trade Name Freq PRN Reason Stop Dose Admin Acetaminophen 650 mg 08/15/20 22:16 08/19/20 01:17 Acetaminophen 325 Mg Tab PO 650 mg Q4H PRN Administration Pain MILD(1-3)/Fever >100.5/TELLO Hydrocodone Bitart/Acetaminophen 1 each 08/15/20 22:06 08/23/20 17:22 Hydrocodone/Acetaminophen 5-325 Mg Tab PO 1 each Q6HR PRN Administration Pain, Moderate (4-6) Albuterol 2.5 mg 08/17/20 19:26 08/24/20 14:08 Albuterol 2.5 Mg/3 Ml Nebu IH 2.5 mg Q6HRT SYLVAIN Administration Apixaban 5 mg 08/24/20 11:00 08/24/20 12:27 Apixaban 5 Mg Tab PO 5 mg Q12HR SYLVAIN Administration Protocol Ascorbic Acid 1,000 mg 08/15/20 23:00 08/24/20 10:14 Ascorbic Acid 500 Mg Tab PO 1,000 mg BID SYLVAIN Administration Calcitriol 0.25 mcg 08/18/20 10:00 08/24/20 10:13 Calcitriol 0.25 Mcg Cap PO 0.25 mcg QDAY SYLVAIN Administration Ezetimibe 10 mg 08/16/20 10:00 08/24/20 10:14 Ezetimibe 10 Mg Tab PO 10 mg DAILY SYLVAIN Administration Hydromorphone HCl 0.5 mg 08/15/20 22:16 Hydromorphone 1 Mg/1 Ml Inj IV Q3H PRN Pain , Severe (7-10) Dexamethasone 20 mg/ Sodium 55 mls @ 100 mls/hr 08/18/20 15:00 08/24/20 10:12 Chloride IV 08/25/20 14:59 100 mls/hr Q12HR SYLVAIN Administration Norepinephrine 4 mg in 250 mls @ 7.5 mls/hr 08/19/20 10:00 Levophed Drip 4 Mg/Ns 250 Ml IV TITR SYLVAIN Protocol 2 MCG/MIN Sodium Chloride 100 mls @ 999 mls/hr 08/24/20 08:20 Nacl 0.9% IV SARAI PRN Hypotension Insulin Glargine 35 units 08/24/20 08:00 08/24/20 08:27 Insulin Glargine 100 Units/Ml SUB-Q 35 units QAMDIAB SYLVAIN Administration Insulin Human Lispro 0 unit 08/18/20 13:23 08/24/20 12:28 Insulin Lispro 100 Unit/Ml SUB-Q 8 unit ACHS SYLVAIN Administration Protocol Linagliptin 5 mg 08/16/20 10:00 08/24/20 10:14 Linagliptin 5 Mg Tab PO 5 mg QDAY SYLVAIN Administration Metoclopramide HCl 5 mg 08/15/20 22:37 Metoclopramide 10 Mg/2 Ml Inj IV Q6H PRN Nausea And Vomiting Multivit/Ca Carb/B Cmplx/FA/Prenat 1 cap 08/18/20 10:00 08/24/20 10:13 Folic Acid/Vit B Comp W-C 1 Mg (Renal Caps) PO 1 cap DAILY SYLVAIN Administration Ondansetron HCl 4 mg 08/15/20 22:16 Ondansetron 4 Mg/2 Ml Inj IV Q8H PRN Nausea And Vomiting Oxycodone/Acetaminophen 1 tab 08/15/20 22:16 08/18/20 09:58 Oxycodone /Acetaminophen 5-325mg Tab PO 1 tab Q6H PRN Administration Pain, Moderate (4-6) Pantoprazole Sodium 40 mg 08/16/20 10:00 08/24/20 10:12 Pantoprazole 40 Mg Tab PO 40 mg DAILY SYLVAIN Administration Pravastatin Sodium 40 mg 08/16/20 10:00 08/24/20 10:12 Pravastatin 40 Mg Tab PO 40 mg DAILY SYLVAIN Administration Pseudoephedrine/Acetam/Chlorphenir 10 ml 08/18/20 10:30 08/23/20 17:21 Guaifenesin/Codeine 100-10mg Oral Liqd 5 Ml PO 10 ml Q4H PRN Administration Cough Sodium Chloride 10 ml 08/15/20 23:00 08/24/20 10:14 Sodium Chloride 0.9% 10 Ml Flush Syringe IV 10 ml BID SYLVAIN Administration Sodium Chloride 10 ml 08/15/20 22:16 Sodium Chloride 0.9% 10 Ml Flush Syringe IV PRN PRN LINE FLUSH Zinc Sulfate 220 mg 08/15/20 23:00 08/24/20 10:15 Zinc Sulfate 220 Mg Cap PO 220 mg BID SYLVAIN Administration
--- NOTE | 2020-08-24 15:42 | Event Note ---
Date: 08/24/20 I called the patient's sister Gwen Ye at [phone] and updated her on the current treatments and and status. All questions answered.
[2020-08-25] MEDS: ALBUTEROL 2.5 MG/3 ML NEBU IH SCH ×4 (08:33→20:37)
[2020-08-25 08:59] LABS: Hematocrit 32.6 % (30.3-42.9); Hemoglobin 10.3 gm/dl (10.1-14.3); Mean Corpuscular HGB Conc 32 % (30-34); Mean Corpuscular Volume 84 fl (79-97); Platelet Count 234 K/mm3 (140-440); Red Blood Count 3.86 M/mm3 (3.65-5.03); Red Cell Distribution Width 15.8 % (13.2-15.2)
[2020-08-25] MEDS: INSULIN LISPRO 100 UNIT/ML SUB-Q SCH ×3 (09:00→17:53)
[2020-08-25] MEDS: EZETIMIBE 10 MG TAB PO SCH (09:01)
[2020-08-25] MEDS: FOLIC ACID/VIT B COMP W-C 1 MG (RENAL CAPS) PO SCH (09:01)
[2020-08-25] MEDS: CALCITRIOL 0.25 MCG CAP PO SCH (09:02)
[2020-08-25] MEDS: PANTOPRAZOLE 40 MG TAB PO SCH (09:02)
[2020-08-25] MEDS: LINAGLIPTIN 5 MG TAB PO SCH (09:02)
[2020-08-25] MEDS: APIXABAN 5 MG TAB PO SCH ×2 (09:02→21:37)
[2020-08-25] MEDS: PRAVASTATIN 40 MG TAB PO SCH (09:02)
[2020-08-25] MEDS: ZINC SULFATE 220 MG CAP PO SCH ×2 (09:02→21:37)
[2020-08-25] MEDS: ASCORBIC ACID 500 MG TAB PO SCH ×2 (09:02→21:37)
[2020-08-25] MEDS: INSULIN GLARGINE 100 UNITS/ML SUB-Q SCH (09:04)
[2020-08-25 09:15] LABS: Calcium 9.4 mg/dL (8.4-10.2)
--- NOTE | 2020-08-25 09:28 | Progress Note ---
Assessment and Plan 64 y/o female with acute respiratory failure thought secondary to COVID, found to be positive 08/25/20: Empirically started on anticoags, monitor renal function and coags and hgb. LAst day of steroids, however may need to extend out if oxygen requirement doesn't improve with continued HD and volume removal. Encourage to prone or some variation of this. Guarded prognosis. 08/24/20: Markers remain elevated. IMS concerned about clot. dopplers negative so they have cleared with renal for CTA. Oxygenation not worse and I am not lin re how aggressive weaning has been. Will attempt to do better today. HD per renal. Continue high dose steroids. Guarded prognosis. 08/23/20: Agree with HD again today. Wean FiO2 for sats >88% and patient comfort. Continue steroids at current dosing. Lantus for sugars. Will observe on HD again today. If anything, and a bed is needed, can transfer to step down. 08/22/20: HD per renal. Patient has questions about why she is requiring HD, please address with her if possible. Hopeful she will have several HD sessions back to back as I feel a lot of her most recent decline is from volume. COntinue High dose steroids but will extend out to 10 days. Increase lantus to help with sugars. Can likely be transferred to step down or back to the floor. 08/19/20: Ordered PICC line for use during HD if patient requires vasopressors. Most likely increase in oxygen secondary to volume from lack of appropriate HD secondary to hypotension. Will give a couple amps of bicarb to see if this will help with blood pressure and can wills off pressor use. Continue steroids. Agree with ID on increasing the dose. Guarded prognosis 08/18/20: Prone as tolerated during day and sleep prone at night. Continue supplemental O2. Steroids for 10 days. Hold on nebs. Needs RT consult for documentation of oxygen therapy and requirements. 08/17/20: Found to be positive. Same recs as yesterday. Likely not a candidate for remdesivir given renal function. No nebulizer therapy, only inhaler therapy if and when needed. Continue supplemental O2 and proning is mcknight. Guarded prognosis given renal failure. 1. Follow up covid testing 2. Ok with current steroids 3. If patient brought in home inhalers, please allow pharmacy to verify and use them, no neb treatments 4. Prone during the day and and sleep prone at night as tolerated. Guarded prognosis. Subjective Date of service: 08/25/20 Principal diagnosis: Acute respiratory failure with hypoxia, ANGELIQUE superimposed onCKD, Covid pneum Interval history: Transitioned back to the floor. Stable. Now on 30 liters and 90%. Sat is 95. Remainder is negative. Objective Vital Signs - 12hr 08/24/20 08/24/20 08/24/20 21:30 21:45 22:00 Temperature Pulse Rate 97 H 99 H 86 Pulse Rate [ Anterior Bilateral Throughout] Pulse Rate [ From Monitor] Respiratory 27 H 22 Rate Respiratory Rate [Anterior Bilateral Throughout] Blood Pressure 109/61 109/61 109/65 O2 Sat by Pulse 100 99 Oximetry O2 Sat by Pulse Oximetry [ Anterior Bilateral Throughout] 08/24/20 08/24/20 08/24/20 22:20 22:30 23:00 Temperature 98.5 F Pulse Rate 87 80 92 H Pulse Rate [ Anterior Bilateral Throughout] Pulse Rate [ From Monitor] Respiratory 23 21 Rate Respiratory Rate [Anterior Bilateral Throughout] Blood Pressure 116/64 123/64 112/73 O2 Sat by Pulse 100 97 Oximetry O2 Sat by Pulse 100 Oximetry [ Anterior Bilateral Throughout] 08/24/20 08/24/20 08/25/20 23:25 23:31 00:00 Temperature 98.3 F Pulse Rate 115 H 97 H 93 H Pulse Rate [ Anterior Bilateral Throughout] Pulse Rate [ 95 H From Monitor] Respiratory 14 27 H 29 H Rate Respiratory Rate [Anterior Bilateral Throughout] Blood Pressure 95/56 93/60 105/58 O2 Sat by Pulse 92 94 97 Oximetry O2 Sat by Pulse Oximetry [ Anterior Bilateral Throughout] 08/25/20 08/25/20 08/25/20 00:31 00:40 00:50 Temperature Pulse Rate 99 H 92 H 101 H Pulse Rate [ Anterior Bilateral Throughout] Pulse Rate [ From Monitor] Respiratory 24 31 H 36 H Rate Respiratory Rate [Anterior Bilateral Throughout] Blood Pressure 117/57 118/63 126/62 O2 Sat by Pulse 94 97 Oximetry O2 Sat by Pulse Oximetry [ Anterior Bilateral Throughout] 08/25/20 08/25/20 08/25/20 03:51 03:54 05:47 Temperature 98.3 F 97.0 F L Pulse Rate 92 H 92 H Pulse Rate [ Anterior Bilateral Throughout] Pulse Rate [ From Monitor] Respiratory 19 18 18 Rate Respiratory Rate [Anterior Bilateral Throughout] Blood Pressure 123/74 136/73 O2 Sat by Pulse 98 95 Oximetry O2 Sat by Pulse Oximetry [ Anterior Bilateral Throughout] 08/25/20 08:35 Temperature Pulse Rate Pulse Rate [ 96 H Anterior Bilateral Throughout] Pulse Rate [ From Monitor] Respiratory Rate Respiratory 16 Rate [Anterior Bilateral Throughout] Blood Pressure O2 Sat by Pulse 95 Oximetry O2 Sat by Pulse Oximetry [ Anterior Bilateral Throughout] Constitutional: alert, other (obese, critically ill on ventilator) Eyes: non-icteric ENT: oropharynx moist Neck: supple Effort: normal Ascultation: Bilateral: diminished breath sounds Cardiovascular: regular rate and rhythm (no mrg) Gastrointestinal: normoactive bowel sounds, soft, non-tender, non-distended Integumentary: normal Extremities: no cyanosis, no edema Neurologic: normal mental status, non-focal exam Psychiatric: mood appropriate, affect normal CBC and BMP: 08/25/20 08:14 08/24/20 06:06 ABG, PT/INR, D-dimer: PT/INR, D-dimer D-Dimer > 35318 ng/mlDDU (0-234) H 08/23/20 14:07 Abnormal lab findings: Abnormal Labs 08/15/20 08/15/20 08/15/20 17:01 17:01 17:01 WBC RBC Hgb Hct MCH RDW 15.8 H Lymph % (Auto) 7.4 L Lymph # (Auto) 0.7 L Seg Neutrophils % 85.1 H Seg Neuts % (Manual) Lymphocytes % (Manual) Seg Neutrophils # 7.9 H Lymphocytes # (Manual) D-Dimer 1750.12 H Sodium Potassium 5.1 H Chloride 97.1 L Carbon Dioxide BUN 67 H Creatinine 4.8 H Glucose 101 H POC Glucose Hemoglobin A1c Calcium Phosphorus Ferritin AST 53 H Lactate Dehydrogenase C-Reactive Protein Total Protein Albumin 3.4 L PTH Intact Ur Specific [place] Urine WBC (Auto) U Epithel Cells (Auto) Urine Creatinine Urine Total Protein Coronavirus (PCR) 08/15/20 08/15/20 08/15/20 17:01 17:01 17:01 WBC RBC Hgb Hct MCH RDW Lymph % (Auto) Lymph # (Auto) Seg Neutrophils % Seg Neuts % (Manual) Lymphocytes % (Manual) Seg Neutrophils # Lymphocytes # (Manual) D-Dimer Sodium Potassium Chloride Carbon Dioxide BUN Creatinine Glucose 101 H POC Glucose Hemoglobin A1c Calcium Phosphorus Ferritin 667.2 H AST Lactate Dehydrogenase 606 H 567 H C-Reactive Protein 4.60 H 6.30 H Total Protein Albumin PTH Intact Ur Specific [place] Urine WBC (Auto) U Epithel Cells (Auto) Urine Creatinine Urine Total Protein Coronavirus (PCR) 08/16/20 08/16/20 08/16/20 04:32 04:32 04:32 WBC RBC Hgb Hct MCH 27 L RDW 15.9 H Lymph % (Auto) 12.6 L Lymph # (Auto) 0.8 L Seg Neutrophils % 83.7 H Seg Neuts % (Manual) Lymphocytes % (Manual) Seg Neutrophils # Lymphocytes # (Manual) D-Dimer Sodium 136 L Potassium 6.7 H* D Chloride Carbon Dioxide BUN 78 H Creatinine 6.2 H Glucose 223 H POC Glucose Hemoglobin A1c 7.6 H Calcium 7.8 L Phosphorus Ferritin AST 47 H Lactate Dehydrogenase C-Reactive Protein Total Protein 5.8 L D Albumin 3.1 L PTH Intact Ur Specific [place] Urine WBC (Auto) U Epithel Cells (Auto) Urine Creatinine Urine Total Protein Coronavirus (PCR) 08/16/20 08/16/20 08/16/20 17:01 17:05 21:41 WBC RBC Hgb Hct MCH RDW Lymph % (Auto) Lymph # (Auto) Seg Neutrophils % Seg Neuts % (Manual) Lymphocytes % (Manual) Seg Neutrophils # Lymphocytes # (Manual) D-Dimer Sodium Potassium Chloride Carbon Dioxide BUN 93 H Creatinine 7.7 H Glucose 228 H POC Glucose 150 H 204 H Hemoglobin A1c Calcium Phosphorus Ferritin AST Lactate Dehydrogenase C-Reactive Protein Total Protein Albumin PTH Intact Ur Specific [place] Urine WBC (Auto) U Epithel Cells (Auto) Urine Creatinine Urine Total Protein Coronavirus (PCR) 08/16/20 08/17/20 08/17/20 Unknown 07:31 07:31 WBC RBC Hgb Hct MCH 27 L RDW 16.0 H Lymph % (Auto) 4.2 L Lymph # (Auto) 0.4 L Seg Neutrophils % 90.0 H Seg Neuts % (Manual) Lymphocytes % (Manual) Seg Neutrophils # 8.8 H Lymphocytes # (Manual) D-Dimer Sodium Potassium 5.8 H D Chloride Carbon Dioxide 20 L BUN 103 H Creatinine 9.0 H Glucose 219 H POC Glucose Hemoglobin A1c Calcium 7.9 L Phosphorus Ferritin AST Lactate Dehydrogenase C-Reactive Protein Total Protein Albumin PTH Intact Ur Specific [place] Urine WBC (Auto) U Epithel Cells (Auto) Urine Creatinine Urine Total Protein Coronavirus (PCR) Positive A 08/17/20 08/17/20 08/17/20 07:44 09:35 09:35 WBC RBC Hgb Hct MCH RDW Lymph % (Auto) Lymph # (Auto) Seg Neutrophils % Seg Neuts % (Manual) Lymphocytes % (Manual) Seg Neutrophils # Lymphocytes # (Manual) D-Dimer Sodium Potassium Chloride Carbon Dioxide BUN Creatinine Glucose POC Glucose 188 H Hemoglobin A1c Calcium Phosphorus 5.90 H Ferritin AST Lactate Dehydrogenase C-Reactive Protein Total Protein Albumin PTH Intact 452.6 H Ur Specific [place] Urine WBC (Auto) U Epithel Cells (Auto) Urine Creatinine Urine Total Protein Coronavirus (PCR) 08/17/20 08/17/20 08/17/20 11:23 16:38 17:45 WBC RBC Hgb Hct MCH RDW Lymph % (Auto) Lymph # (Auto) Seg Neutrophils % Seg Neuts % (Manual) Lymphocytes % (Manual) Seg Neutrophils # Lymphocytes # (Manual) D-Dimer Sodium Potassium Chloride Carbon Dioxide BUN Creatinine Glucose POC Glucose 205 H 212 H Hemoglobin A1c Calcium Phosphorus Ferritin AST Lactate Dehydrogenase C-Reactive Protein Total Protein Albumin PTH Intact Ur Specific [place] 1.039 H Urine WBC (Auto) 32.0 H U Epithel Cells (Auto) 44.0 H Urine Creatinine Urine Total Protein Coronavirus (PCR) 08/17/20 08/17/20 08/18/20 17:45 21:39 08:00 WBC RBC Hgb Hct MCH RDW Lymph % (Auto) Lymph # (Auto) Seg Neutrophils % Seg Neuts % (Manual) Lymphocytes % (Manual) Seg Neutrophils # Lymphocytes # (Manual) D-Dimer Sodium Potassium Chloride Carbon Dioxide BUN Creatinine Glucose POC Glucose 206 H 229 H Hemoglobin A1c Calcium Phosphorus Ferritin AST Lactate Dehydrogenase C-Reactive Protein Total Protein Albumin PTH Intact Ur Specific [place] Urine WBC (Auto) U Epithel Cells (Auto) Urine Creatinine 248.0 H Urine Total Protein 196 H Coronavirus (PCR) 08/18/20 08/18/20 08/18/20 08:36 08:36 11:00 WBC RBC 3.64 L Hgb 10.0 L Hct MCH RDW 15.8 H Lymph % (Auto) 5.9 L Lymph # (Auto) 0.5 L Seg Neutrophils % 87.3 H Seg Neuts % (Manual) Lymphocytes % (Manual) Seg Neutrophils # Lymphocytes # (Manual) D-Dimer Sodium 135 L D Potassium Chloride 95.8 L Carbon Dioxide 20 L BUN 84 H Creatinine 8.4 H Glucose 262 H POC Glucose 238 H Hemoglobin A1c Calcium 7.5 L Phosphorus Ferritin AST Lactate Dehydrogenase C-Reactive Protein Total Protein 6.1 L Albumin 2.5 L PTH Intact Ur Specific [place] Urine WBC (Auto) U Epithel Cells (Auto) Urine Creatinine Urine Total Protein Coronavirus (PCR) 08/18/20 08/18/20 08/19/20 16:14 21:52 04:23 WBC RBC 3.53 L Hgb 9.5 L Hct 30.0 L MCH 27 L RDW 15.6 H Lymph % (Auto) Lymph # (Auto) Seg Neutrophils % Seg Neuts % (Manual) 84.0 H Lymphocytes % (Manual) 9.0 L Seg Neutrophils # Lymphocytes # (Manual) 0.5 L D-Dimer Sodium Potassium Chloride Carbon Dioxide BUN Creatinine Glucose POC Glucose 248 H 303 H Hemoglobin A1c Calcium Phosphorus Ferritin AST Lactate Dehydrogenase C-Reactive Protein Total Protein Albumin PTH Intact Ur Specific [place] Urine WBC (Auto) U Epithel Cells (Auto) Urine Creatinine Urine Total Protein Coronavirus (PCR) 08/19/20 08/19/20 08/19/20 04:23 06:44 11:53 WBC RBC Hgb Hct MCH RDW Lymph % (Auto) Lymph # (Auto) Seg Neutrophils % Seg Neuts % (Manual) Lymphocytes % (Manual) Seg Neutrophils # Lymphocytes # (Manual) D-Dimer Sodium Potassium Chloride 97.2 L Carbon Dioxide BUN 86 H Creatinine 9.2 H Glucose 271 H POC Glucose 213 H 266 H Hemoglobin A1c Calcium 7.5 L Phosphorus Ferritin AST Lactate Dehydrogenase C-Reactive Protein Total Protein 5.8 L Albumin 2.5 L PTH Intact Ur Specific [place] Urine WBC (Auto) U Epithel Cells (Auto) Urine Creatinine Urine Total Protein Coronavirus (PCR) 08/19/20 08/19/20 08/19/20 16:58 16:58 16:58 WBC RBC Hgb Hct MCH RDW Lymph % (Auto) Lymph # (Auto) Seg Neutrophils % Seg Neuts % (Manual) Lymphocytes % (Manual) Seg Neutrophils # Lymphocytes # (Manual) D-Dimer > 03037 H Sodium Potassium Chloride Carbon Dioxide BUN Creatinine Glucose POC Glucose Hemoglobin A1c Calcium Phosphorus Ferritin 1043.0 H AST Lactate Dehydrogenase 721 H C-Reactive Protein 3.00 H Total Protein Albumin PTH Intact Ur Specific [place] Urine WBC (Auto) U Epithel Cells (Auto) Urine Creatinine Urine Total Protein Coronavirus (PCR) 08/19/20 08/19/20 08/20/20 17:18 22:53 06:38 WBC RBC Hgb Hct MCH RDW Lymph % (Auto) Lymph # (Auto) Seg Neutrophils % Seg Neuts % (Manual) Lymphocytes % (Manual) Seg Neutrophils # Lymphocytes # (Manual) D-Dimer Sodium Potassium Chloride Carbon Dioxide BUN Creatinine Glucose POC Glucose 223 H 273 H 268 H Hemoglobin A1c Calcium Phosphorus Ferritin AST Lactate Dehydrogenase C-Reactive Protein Total Protein Albumin PTH Intact Ur Specific [place] Urine WBC (Auto) U Epithel Cells (Auto) Urine Creatinine Urine Total Protein Coronavirus (PCR) 08/20/20 08/20/20 08/20/20 08:21 11:47 15:46 WBC RBC Hgb Hct MCH RDW Lymph % (Auto) Lymph # (Auto) Seg Neutrophils % Seg Neuts % (Manual) Lymphocytes % (Manual) Seg Neutrophils # Lymphocytes # (Manual) D-Dimer Sodium Potassium Chloride Carbon Dioxide BUN Creatinine Glucose POC Glucose 264 H 288 H 262 H Hemoglobin A1c Calcium Phosphorus Ferritin AST Lactate Dehydrogenase C-Reactive Protein Total Protein Albumin PTH Intact Ur Specific [place] Urine WBC (Auto) U Epithel Cells (Auto) Urine Creatinine Urine Total Protein Coronavirus (PCR) 08/20/20 08/21/20 08/21/20 21:33 07:46 11:56 WBC RBC Hgb Hct MCH RDW Lymph % (Auto) Lymph # (Auto) Seg Neutrophils % Seg Neuts % (Manual) Lymphocytes % (Manual) Seg Neutrophils # Lymphocytes # (Manual) D-Dimer Sodium Potassium Chloride Carbon Dioxide BUN Creatinine Glucose POC Glucose 274 H 249 H 227 H Hemoglobin A1c Calcium Phosphorus Ferritin AST Lactate Dehydrogenase C-Reactive Protein Total Protein Albumin PTH Intact Ur Specific [place] Urine WBC (Auto) U Epithel Cells (Auto) Urine Creatinine Urine Total Protein Coronavirus (PCR) 08/21/20 08/21/20 08/22/20 17:19 21:34 08:48 WBC RBC Hgb Hct MCH RDW Lymph % (Auto) Lymph # (Auto) Seg Neutrophils % Seg Neuts % (Manual) Lymphocytes % (Manual) Seg Neutrophils # Lymphocytes # (Manual) D-Dimer Sodium Potassium Chloride Carbon Dioxide BUN Creatinine Glucose POC Glucose 318 H 286 H 257 H Hemoglobin A1c Calcium Phosphorus Ferritin AST Lactate Dehydrogenase C-Reactive Protein Total Protein Albumin PTH Intact Ur Specific [place] Urine WBC (Auto) U Epithel Cells (Auto) Urine Creatinine Urine Total Protein Coronavirus (PCR) 08/22/20 08/22/20 08/22/20 12:34 17:41 21:22 WBC RBC Hgb Hct MCH RDW Lymph % (Auto) Lymph # (Auto) Seg Neutrophils % Seg Neuts % (Manual) Lymphocytes % (Manual) Seg Neutrophils # Lymphocytes # (Manual) D-Dimer Sodium Potassium Chloride Carbon Dioxide BUN Creatinine Glucose POC Glucose 324 H 283 H 308 H Hemoglobin A1c Calcium Phosphorus Ferritin AST Lactate Dehydrogenase C-Reactive Protein Total Protein Albumin PTH Intact Ur Specific [place] Urine WBC (Auto) U Epithel Cells (Auto) Urine Creatinine Urine Total Protein Coronavirus (PCR) 08/23/20 08/23/20 08/23/20 05:24 05:47 05:47 WBC 13.7 H RBC Hgb 9.9 L Hct MCH 27 L RDW Lymph % (Auto) Lymph # (Auto) Seg Neutrophils % Seg Neuts % (Manual) Lymphocytes % (Manual) Seg Neutrophils # Lymphocytes # (Manual) D-Dimer Sodium 133 L Potassium Chloride 90.4 L Carbon Dioxide BUN 103 H Creatinine 9.5 H Glucose 346 H POC Glucose 297 H Hemoglobin A1c Calcium 7.9 L Phosphorus Ferritin AST Lactate Dehydrogenase C-Reactive Protein Total Protein Albumin PTH Intact Ur Specific [place] Urine WBC (Auto) U Epithel Cells (Auto) Urine Creatinine Urine Total Protein Coronavirus (PCR) 08/23/20 08/23/20 08/23/20 07:34 10:58 14:07 WBC RBC Hgb Hct MCH RDW Lymph % (Auto) Lymph # (Auto) Seg Neutrophils % Seg Neuts % (Manual) Lymphocytes % (Manual) Seg Neutrophils # Lymphocytes # (Manual) D-Dimer > 09553 H Sodium Potassium Chloride Carbon Dioxide BUN Creatinine Glucose POC Glucose 276 H 334 H Hemoglobin A1c Calcium Phosphorus Ferritin AST Lactate Dehydrogenase C-Reactive Protein Total Protein Albumin PTH Intact Ur Specific [place] Urine WBC (Auto) U Epithel Cells (Auto) Urine Creatinine Urine Total Protein Coronavirus (PCR) 08/23/20 08/23/20 08/23/20 14:07 14:07 15:54 WBC RBC Hgb Hct MCH RDW Lymph % (Auto) Lymph # (Auto) Seg Neutrophils % Seg Neuts % (Manual) Lymphocytes % (Manual) Seg Neutrophils # Lymphocytes # (Manual) D-Dimer Sodium Potassium Chloride Carbon Dioxide BUN Creatinine Glucose POC Glucose 248 H Hemoglobin A1c Calcium Phosphorus Ferritin 1053.0 H AST Lactate Dehydrogenase 994 H C-Reactive Protein Total Protein Albumin PTH Intact Ur Specific [place] Urine WBC (Auto) U Epithel Cells (Auto) Urine Creatinine Urine Total Protein Coronavirus (PCR) 08/23/20 08/24/20 08/24/20 21:18 06:06 06:06 WBC 17.9 H RBC Hgb 10.0 L Hct MCH 26 L RDW Lymph % (Auto) Lymph # (Auto) Seg Neutrophils % Seg Neuts % (Manual) Lymphocytes % (Manual) Seg Neutrophils # Lymphocytes # (Manual) D-Dimer Sodium Potassium 5.2 H Chloride 94.8 L Carbon Dioxide BUN 79 H Creatinine 7.9 H Glucose 230 H POC Glucose 206 H Hemoglobin A1c Calcium 8.3 L Phosphorus Ferritin AST Lactate Dehydrogenase C-Reactive Protein Total Protein Albumin PTH Intact Ur Specific [place] Urine WBC (Auto) U Epithel Cells (Auto) Urine Creatinine Urine Total Protein Coronavirus (PCR) 08/24/20 08/24/20 08/24/20 07:44 11:31 15:51 WBC RBC Hgb Hct MCH RDW Lymph % (Auto) Lymph # (Auto) Seg Neutrophils % Seg Neuts % (Manual) Lymphocytes % (Manual) Seg Neutrophils # Lymphocytes # (Manual) D-Dimer Sodium Potassium Chloride Carbon Dioxide BUN Creatinine Glucose POC Glucose 199 H 307 H 325 H Hemoglobin A1c Calcium Phosphorus Ferritin AST Lactate Dehydrogenase C-Reactive Protein Total Protein Albumin PTH Intact Ur Specific [place] Urine WBC (Auto) U Epithel Cells (Auto) Urine Creatinine Urine Total Protein Coronavirus (PCR) 08/24/20 08/25/20 08/25/20 21:43 08:08 08:14 WBC 19.0 H RBC Hgb Hct MCH 27 L RDW 15.8 H Lymph % (Auto) Lymph # (Auto) Seg Neutrophils % Seg Neuts % (Manual) Lymphocytes % (Manual) Seg Neutrophils # Lymphocytes # (Manual) D-Dimer Sodium Potassium Chloride Carbon Dioxide BUN Creatinine Glucose POC Glucose 227 H 253 H Hemoglobin A1c Calcium Phosphorus Ferritin AST Lactate Dehydrogenase C-Reactive Protein Total Protein Albumin PTH Intact Ur Specific [place] Urine WBC (Auto) U Epithel Cells (Auto) Urine Creatinine Urine Total Protein Coronavirus (PCR)
--- NOTE | 2020-08-25 11:32 | Progress Note ---
Assessment and Plan Assessment and plan: #Acute hypoxic respiratory failure Secondary to Covid pneumonia Continue oxygen supplementation-on high flow 30 L FiO2 90% #COVID-19 pneumonia Status post azithromycin and ceftriaxone Not a candidate for remdesivir due to impaired renal function Continue dexamethasone Incentive spirometer Prone positioning as tolerated Pulmonology following ID on board #ANGELIQUE on CKD now on hemodialysis Likely ATN Tolerating hemodialysis Continue hemodialysis as scheduled Nephrology on board #Elevated D-dimer Ultrasound lower extremity Doppler negative Unable to obtain CTA chest due to allergies Continue apixaban 5 mg twice a day #Diabetes mellitus Lantus and lispro Tradjenta #Hyperlipidemia Continue statins #Hypertension Continue medication #COPD Stable DVT/GI prophylaxis: SCDs to BLE while in bed, PPI, Eliquis twice daily Disposition: TTF History Interval history: This is a 64-year-old female with hypertension, diabetes, COPD, CVA, gout, hyperlipidemia who presented to the emergency department on 08/15 for a productive cough, wheezing, headache, subjective fevers scratchy throat ongoing for 4 weeks since 07/21/2020 s/p Z-Bipin and steroids who was COVID-19 positive prior to admission. Pulmonology, infectious disease, nephrology were consulted. 08/25. On high flow nasal cannula 30 L, FiO2 90%. Started empirically on Eliquis 5 mg twice daily for possible PE. She has no complaints this morning. Has some cough. Pulmonology and ID following. Remains on steroids 08/24: Patient remains on HFNC at 40L, 80% FiO2, her ddimer>[id number] and her BLE Doppler US (-) for DVT. Unable to obtain a CTA chest due to allergy to contrast. We will treat Eliquis 5 mg twice daily. Wean supplemental oxygenation as tolerated. Patient will be transferred to the floor today. 08/23: Patient complains of cough, intermittent shortness of breath, received hemodialysis today and remains on high flow nasal cannula at 40 L, 80%. No acute events reported overnight. VQ scan and bilateral lower extremity Doppler ultrasound pending 08/22: High flow nasal cannula, intermittent HD, high-dose steroids 08/21: High flow nasal cannula 08/20:-High flow nasal cannula 08/19:-High flow nasal cannula, PICC line ordered, bicarb 08/18: High flow nasal cannula, transferred to ICU 08/17: Hypoxia,-nasal cannula 3/2: High flow nasal cannula, Vas-Cath placement for intermittent HD, COVID-19 PCR positive Hospitalist Physical - Constitutional Vitals: Temp Pulse Resp BP Pulse Ox 97.0 F L 96 H 18 136/73 95 08/25/20 05:47 08/25/20 08:35 08/25/20 10:00 08/25/20 05:47 08/25/20 08:35 General appearance: Present: no acute distress, well-nourished, obese Results - Labs CBC & Chem 7: 08/25/20 08:14 08/25/20 08:14 Labs: Laboratory Last Values WBC 19.0 K/mm3 (4.5-11.0) H 08/25/20 08:14 RBC 3.86 M/mm3 (3.65-5.03) 08/25/20 08:14 Hgb 10.3 gm/dl (10.1-14.3) 08/25/20 08:14 Hct 32.6 % (30.3-42.9) 08/25/20 08:14 MCV 84 fl (79-97) 08/25/20 08:14 MCH 27 pg (28-32) L 08/25/20 08:14 MCHC 32 % (30-34) 08/25/20 08:14 RDW 15.8 % (13.2-15.2) H 08/25/20 08:14 Plt Count 234 K/mm3 (140-440) 08/25/20 08:14 Lymph % (Auto) 5.9 % (13.4-35.0) L 08/18/20 08:36 Lee % (Auto) 6.6 % (0.0-7.3) 08/18/20 08:36 Eos % (Auto) 0.0 % (0.0-4.3) 08/18/20 08:36 Baso % (Auto) 0.2 % (0.0-1.8) 08/18/20 08:36 Lymph # (Auto) 0.5 K/mm3 (1.2-5.4) L 08/18/20 08:36 Lee # (Auto) 0.6 K/mm3 (0.0-0.8) 08/18/20 08:36 Eos # (Auto) 0.0 K/mm3 (0.0-0.4) 08/18/20 08:36 Baso # (Auto) 0.0 K/mm3 (0.0-0.1) 08/18/20 08:36 Add Manual Diff Complete 08/19/20 04:23 Total Counted 100 08/19/20 04:23 Seg Neutrophils % 87.3 % (40.0-70.0) H 08/18/20 08:36 Seg Neuts % (Manual) 84.0 % (40.0-70.0) H 08/19/20 04:23 Band Neutrophils % 3.0 % 08/19/20 04:23 Lymphocytes % (Manual) 9.0 % (13.4-35.0) L 08/19/20 04:23 Monocytes % (Manual) 4.0 % (0.0-7.3) 08/19/20 04:23 Nucleated RBC % Not Reportable 08/19/20 04:23 Seg Neutrophils # 7.4 K/mm3 (1.8-7.7) 08/18/20 08:36 Seg Neutrophils # Man 5.0 K/mm3 (1.8-7.7) 08/19/20 04:23 Band Neutrophils # 0.2 K/mm3 08/19/20 04:23 Lymphocytes # (Manual) 0.5 K/mm3 (1.2-5.4) L 08/19/20 04:23 Abs React Lymphs (Man) 0.0 K/mm3 08/19/20 04:23 Monocytes # (Manual) 0.2 K/mm3 (0.0-0.8) 08/19/20 04:23 Eosinophils # (Manual) 0.0 K/mm3 (0.0-0.4) 08/19/20 04:23 Basophils # (Manual) 0.0 K/mm3 (0.0-0.1) 08/19/20 04:23 Metamyelocytes # 0.0 K/mm3 08/19/20 04:23 Myelocytes # 0.0 K/mm3 08/19/20 04:23 Promyelocytes # 0.0 K/mm3 08/19/20 04:23 Blast Cells # 0.0 K/mm3 08/19/20 04:23 WBC Morphology Not Reportable 08/19/20 04:23 Hypersegmented Neuts Not Reportable 08/19/20 04:23 Hyposegmented Neuts Not Reportable 08/19/20 04:23 Hypogranular Neuts Not Reportable 08/19/20 04:23 Smudge Cells Not Reportable 08/19/20 04:23 Toxic Granulation Not Reportable 08/19/20 04:23 Toxic Vacuolation Not Reportable 08/19/20 04:23 Dohle Bodies Not Reportable 08/19/20 04:23 Pelger-Huet Anomaly Not Reportable 08/19/20 04:23 Shannon Rods Not Reportable 08/19/20 04:23 Platelet Estimate Consistent w auto 08/19/20 04:23 Clumped Platelets Not Reportable 08/19/20 04:23 Plt Clumps, EDTA Not Reportable 08/19/20 04:23 Large Platelets Not Reportable 08/19/20 04:23 Giant Platelets Not Reportable 08/19/20 04:23 Platelet Satelliting Not Reportable 08/19/20 04:23 Plt Morphology Comment Not Reportable 08/19/20 04:23 RBC Morphology Not Reportable 08/19/20 04:23 Dimorphic RBCs Not Reportable 08/19/20 04:23 Polychromasia Not Reportable 08/19/20 04:23 Hypochromasia Not Reportable 08/19/20 04:23 Poikilocytosis 1+ 08/19/20 04:23 Anisocytosis 1+ 08/19/20 04:23 Microcytosis Not Reportable 08/19/20 04:23 Macrocytosis Not Reportable 08/19/20 04:23 Spherocytes Not Reportable 08/19/20 04:23 Pappenheimer Bodies Not Reportable 08/19/20 04:23 Sickle Cells Not Reportable 08/19/20 04:23 Target Cells Not Reportable 08/19/20 04:23 Tear Drop Cells Rare 08/19/20 04:23 Ovalocytes Few 08/19/20 04:23 Helmet Cells Not Reportable 08/19/20 04:23 Brice-Aitkin Bodies Not Reportable 08/19/20 04:23 [place] Rings Not Reportable 08/19/20 04:23 Acworth Cells 1+ 08/19/20 04:23 Bite Cells Not Reportable 08/19/20 04:23 Crenated Cell Not Reportable 08/19/20 04:23 Elliptocytes Few 08/19/20 04:23 Acanthocytes (Spur) Not Reportable 08/19/20 04:23 Rouleaux Not Reportable 08/19/20 04:23 Hemoglobin C Crystals Not Reportable 08/19/20 04:23 Schistocytes Not Reportable 08/19/20 04:23 Malaria parasites Not Reportable 08/19/20 04:23 Mateusz Bodies Not Reportable 08/19/20 04:23 Hem Pathologist Commnt No 08/19/20 04:23 D-Dimer > 85675 ng/mlDDU (0-234) H 08/23/20 14:07 VBG pH 7.389 (7.320-7.420) 08/15/20 17:12 Sodium 139 mmol/L (137-145) 08/25/20 08:14 Potassium 4.9 mmol/L (3.6-5.0) 08/25/20 08:14 Chloride 98.2 mmol/L (98-107) 08/25/20 08:14 Carbon Dioxide 25 mmol/L (22-30) 08/25/20 08:14 Anion Gap 21 mmol/L 08/25/20 08:14 BUN 65 mg/dL (7-17) H 08/25/20 08:14 Creatinine 6.6 mg/dL (0.6-1.2) H 08/25/20 08:14 Estimated GFR 8 ml/min 08/25/20 08:14 BUN/Creatinine Ratio 10 % 08/25/20 08:14 Glucose 278 mg/dL (65-100) H 08/25/20 08:14 POC Glucose 332 mg/dL (70-105) H 08/25/20 10:53 Hemoglobin A1c 7.6 % (4-6) H 08/16/20 04:32 Lactic Acid 1.30 mmol/L (0.7-2.0) 08/15/20 17:01 Calcium 9.4 mg/dL (8.4-10.2) 08/25/20 08:14 Phosphorus 5.90 mg/dL (2.5-4.5) H 08/17/20 09:35 Ferritin 1053.0 ng/mL (10.0-200.0) H 08/23/20 14:07 Total Bilirubin < 0.20 mg/dL (0.1-1.2) 08/19/20 04:23 AST 40 units/L (5-40) 08/19/20 04:23 ALT 13 units/L (7-56) 08/19/20 04:23 Alkaline Phosphatase 58 units/L (35-129) 08/19/20 04:23 Lactate Dehydrogenase 994 units/L (91-180) H 08/23/20 14:07 C-Reactive Protein 0.80 mg/dL (0.00-1.30) 08/23/20 14:07 Total Protein 5.8 g/dL (6.3-8.2) L 08/19/20 04:23 Albumin 2.5 g/dL (3.9-5) L 08/19/20 04:23 Albumin/Globulin Ratio 0.8 % 08/19/20 04:23 Procalcitonin 2.11 ng/mL (<0.15) 08/15/20 17:01 PTH Intact 452.6 pg/mL (15-65) H 08/17/20 09:35 Urine Color Yellow (Yellow) 08/17/20 17:45 Urine Turbidity Turbid (Clear) 08/17/20 17:45 Urine pH 5.0 (5.0-7.0) 08/17/20 17:45 Ur Specific Elmer 1.039 (1.003-1.030) H 08/17/20 17:45 Urine Protein >500 mg/dL (Negative) 08/17/20 17:45 Urine Glucose (UA) 50 mg/dL (Negative) 08/17/20 17:45 Urine Ketones Neg mg/dL (Negative) 08/17/20 17:45 Urine Blood Neg (Negative) 08/17/20 17:45 Urine Nitrite Neg (Negative) 08/17/20 17:45 Urine Bilirubin Neg (Negative) 08/17/20 17:45 Urine Urobilinogen < 2.0 mg/dL (<2.0) 08/17/20 17:45 Ur Leukocyte Esterase Neg (Negative) 08/17/20 17:45 Urine WBC (Auto) 32.0 /HPF (0.0-6.0) H 08/17/20 17:45 Urine RBC (Auto) 32.0 /HPF (0.0-6.0) 08/17/20 17:45 U Epithel Cells (Auto) 44.0 /HPF (0-13.0) H 08/17/20 17:45 Urine Bacteria (Auto) 2+ /HPF (Negative) 08/17/20 17:45 Urine Creatinine 248.0 mg/dL (0.1-20.0) H 08/17/20 17:45 Urine Total Protein 196 mg/dL (5-11.8) H 08/17/20 17:45 Coronavirus (PCR) Positive (Negative) A 08/16/20 Unknown Hepatitis A IgM Ab Non-reactive (NonReactive) 08/16/20 21:00 Hep Bs Antigen Non-reactive (Negative) 08/16/20 21:00 Hep B Core IgM Ab Non-reactive (NonReactive) 08/16/20 21:00 Hepatitis C Antibody Non-reactive (NonReactive) 08/16/20 21:00 Odom/IV: Voiding Method External Female Catheter Active Medications - Current Medications Current Medications: Generic Name Dose Route Start Last Admin Trade Name Freq PRN Reason Stop Dose Admin Acetaminophen 650 mg 08/15/20 22:16 08/19/20 01:17 Acetaminophen 325 Mg Tab PO 650 mg Q4H PRN Administration Pain MILD(1-3)/Fever >100.5/TELLO Hydrocodone Bitart/Acetaminophen 1 each 08/15/20 22:06 08/23/20 17:22 Hydrocodone/Acetaminophen 5-325 Mg Tab PO 1 each Q6HR PRN Administration Pain, Moderate (4-6) Albuterol 2.5 mg 08/17/20 19:26 08/25/20 08:34 Albuterol 2.5 Mg/3 Ml Nebu IH Not Given Q6HRT SYLVAIN Apixaban 5 mg 08/24/20 11:00 08/25/20 09:02 Apixaban 5 Mg Tab PO 5 mg Q12HR SYLVAIN Administration Protocol Ascorbic Acid 1,000 mg 08/15/20 23:00 08/25/20 09:02 Ascorbic Acid 500 Mg Tab PO 1,000 mg BID SYLVAIN Administration Calcitriol 0.25 mcg 08/18/20 10:00 08/25/20 09:02 Calcitriol 0.25 Mcg Cap PO 0.25 mcg QDAY SYLVAIN Administration Ezetimibe 10 mg 08/16/20 10:00 08/25/20 09:01 Ezetimibe 10 Mg Tab PO 10 mg DAILY SYLVAIN Administration Hydromorphone HCl 0.5 mg 08/15/20 22:16 Hydromorphone 1 Mg/1 Ml Inj IV Q3H PRN Pain , Severe (7-10) Dexamethasone 20 mg/ Sodium 55 mls @ 100 mls/hr 08/18/20 15:00 08/24/20 23:19 Chloride IV 08/25/20 14:59 100 mls/hr Q12HR SYLVAIN Administration Norepinephrine 4 mg in 250 mls @ 7.5 mls/hr 08/19/20 10:00 Levophed Drip 4 Mg/Ns 250 Ml IV TITR SYLVAIN Protocol 2 MCG/MIN Sodium Chloride 100 mls @ 999 mls/hr 08/24/20 08:20 Nacl 0.9% IV SARAI PRN Hypotension Insulin Glargine 35 units 08/24/20 08:00 08/25/20 09:04 Insulin Glargine 100 Units/Ml SUB-Q 35 units QAMDIAB SYLVAIN Administration Insulin Human Lispro 0 unit 08/18/20 13:23 08/25/20 09:00 Insulin Lispro 100 Unit/Ml SUB-Q 6 unit ACHS SYLVAIN Administration Protocol Linagliptin 5 mg 08/16/20 10:00 08/25/20 09:02 Linagliptin 5 Mg Tab PO 5 mg QDAY SYLVAIN Administration Metoclopramide HCl 5 mg 08/15/20 22:37 Metoclopramide 10 Mg/2 Ml Inj IV Q6H PRN Nausea And Vomiting Multivit/Ca Carb/B Cmplx/FA/Prenat 1 cap 08/18/20 10:00 08/25/20 09:01 Folic Acid/Vit B Comp W-C 1 Mg (Renal Caps) PO 1 cap DAILY SYLVAIN Administration Ondansetron HCl 4 mg 08/15/20 22:16 Ondansetron 4 Mg/2 Ml Inj IV Q8H PRN Nausea And Vomiting Oxycodone/Acetaminophen 1 tab 08/15/20 22:16 08/18/20 09:58 Oxycodone /Acetaminophen 5-325mg Tab PO 1 tab Q6H PRN Administration Pain, Moderate (4-6) Pantoprazole Sodium 40 mg 08/16/20 10:00 08/25/20 09:02 Pantoprazole 40 Mg Tab PO 40 mg DAILY SYLVAIN Administration Pravastatin Sodium 40 mg 08/16/20 10:00 08/25/20 09:02 Pravastatin 40 Mg Tab PO 40 mg DAILY SYLVAIN Administration Pseudoephedrine/Acetam/Chlorphenir 10 ml 08/18/20 10:30 08/23/20 17:21 Guaifenesin/Codeine 100-10mg Oral Liqd 5 Ml PO 10 ml Q4H PRN Administration Cough Sodium Chloride 10 ml 08/15/20 23:00 08/24/20 10:14 Sodium Chloride 0.9% 10 Ml Flush Syringe IV 10 ml BID SYLVAIN Administration Sodium Chloride 10 ml 08/15/20 22:16 Sodium Chloride 0.9% 10 Ml Flush Syringe IV PRN PRN LINE FLUSH Zinc Sulfate 220 mg 08/15/20 23:00 08/25/20 09:02 Zinc Sulfate 220 Mg Cap PO 220 mg BID SYLVAIN Administration Nutrition/Malnutrition Assess - Dietary Evaluation Nutrition/Malnutrition Findings: Nutrition Notes Start: 08/22/20 12:53 Freq: Status: Active Protocol: Document 08/24/20 10:49 AL (Rec: 08/24/20 10:58 AL [id number]) Co-Sign 08/24/20 10:49 LP Nutrition Notes Need for Assessment generated from: LOS Initial or Follow up Assessment Current Diagnosis Acute Kidney Injury,CKD(stage I-IV),COPD,Diabetes, Respiratory Failure Other Pertinent Diagnosis COVID (+), on HD, pneu Current Diet Cardiac, Consistent CHO Labs/Tests K 5.2 BUN 79 Cr 7.9 BG 230 Pertinent Medications Reviewed Height 5 ft 2 in Weight 138.2 kg [place] Body Weight (kg) 50.00 BMI 55.7 Weight change and time frame Wt loss of 3.8 kg (2.7%) noted . Pt on HD. Weight Status Morbidly Obese Subjective/Other Information FU for intakes and ONS tolerance. Pt tolerated >75% of breakfast this morning. Two unopened Glucerna shakes on tray. 1 opened Glucerna on tray as well. D/t new labs and ANGELIQUE, diet needs to be switched to renal and ONS needs to be changed to Nepro Percent of energy/protein needs met: 89%/55% Burn Absent Trauma Absent Current % PO Negligible Minimum of two criteria No physical signs of malnutrition #1 Nutrition Diagnosis Inadequate oral intake Etiology Chronic disease, COVID-19 As Evidenced by Signs and Symptoms pt ate <75% of breakfast Diagnosis Progress(for reassessment Improved documentation) Is patient on ventilator? No Is Patient Ambulatory and/or Out of Bed No REE-([facility]-confined to bed) 2254.980 Kcal/Kg value to use for calculation 12 Approximate Energy Requirements Using 1658 kcal/Kg Calculation Used for Recommendations Kcal/kg Additional Notes Protein: greater than 115g (>1 .2g/kg AdjBW 95.5kg) Fluid: 1000-1500ml or per MD Nutrition Intervention Change Diet Order: Change to Renal diet Add Supplement/Snack (indicate name/kcal Nepro daily /protein ) Provides kCal: 425 Provides Protein (gm) 19 Goal #1 Meet at least 75% of protein and energy needs via PO and ONS intakes Goal #2 ONS tolerance Anticipated Discharge Needs: Renal/ Consistent CHO diet Follow-Up By: 08/26/20 Additional Comments FU for intakes, ONS tolerance, and renal labs
[2020-08-25] MEDS: dexAMETHasone 20 MG in SODIUM CHLORIDE 0.9% 50 ML IV SCH (12:16)
[2020-08-25] MEDS: BENZONATATE 100 MG CAP PO SCH ×2 (13:12→21:37)
--- NOTE | 2020-08-25 13:34 | Progress Note ---
Assessment and Plan Cultures: SARS CoV2 PCR: positive 08/15/2020 blood culture: No growth 08/17/2020 urine culture: Skin fay A/P: 64-year-old female with hypertension, diabetes, COPD, prior CVA, CKD was admitted to the hospital with cough and shortness of breath along with wheezing and headache going on for almost a month: #Bilateral pneumonia: secondary to COVID-19. Test was positive as outpatient as well. Symptomatic for a month. s/p empiric abx. Given prolonged symptoms and renal failure, unlikely to benefit from Remdesivir #Acute hypoxic respiratory failure: on HFNC. #ANGELIQUE on CKD: On intermittent HD per nephrology. #Mild transaminitis: Probably from COVID-19. Hepatitis panel negative. Resolved. Recs: -continue steroids per pulmonary, high dose due to morbid obesity, hopefully being weaning soon -s/p abx -on prophylactic anticoagulation per hospital protocol due elevated d-dimer Dale Suarez MD, FACP [facility] O: [phone] F: [phone] Subjective Date of service: 08/25/20 Principal diagnosis: Acute respiratory failure with hypoxia, ANGELIQUE superimposed onCKD, Covid pneum Interval history: No fever. Remains on HFNC. Moved to floor. Objective - Exam Narrative Exam: Physical Exam (reviewed in chart to minimize risk of transmission) Constitutional: deferred Head, Ears, Nose: deferred Eyes: deferred Neck: deferred Oral: deferred Cardiovascular: deferred Respiratory: deferred GI: deferred Musculoskeletal: deferred Skin: deferred Hem/Lymphatic: deferred Psych: deferred Neurological: deferred - Constitutional Vitals: Vital Signs Temp Pulse Resp BP Pulse Ox 97.0 F L 96 H 18 136/73 95 08/25/20 05:47 08/25/20 08:35 08/25/20 10:00 08/25/20 05:47 08/25/20 08:35 Temperature -Last 24 Hours Temperature 97.0 F Temperature 98.3 F Temperature 98.3 F Temperature 98.5 F Temperature 98.7 F Temperature 98.7 F Temperature 99.2 F - Labs CBC & Chem 7: 08/25/20 08:14 08/25/20 08:14 Labs: Abnormal lab results 08/24/20 08/24/20 08/25/20 Range/Units 15:51 21:43 08:08 WBC (4.5-11.0) K/mm3 MCH (28-32) pg RDW (13.2-15.2) % BUN (7-17) mg/dL Creatinine (0.6-1.2) mg/dL Glucose (65-100) mg/dL POC Glucose 325 H 227 H 253 H (70-105) mg/dL 08/25/20 08/25/20 08/25/20 Range/Units 08:14 08:14 10:53 WBC 19.0 H (4.5-11.0) K/mm3 MCH 27 L (28-32) pg RDW 15.8 H (13.2-15.2) % BUN 65 H (7-17) mg/dL Creatinine 6.6 H (0.6-1.2) mg/dL Glucose 278 H (65-100) mg/dL POC Glucose 332 H (70-105) mg/dL
--- NOTE | 2020-08-25 13:53 | Progress Note ---
Assessment and Plan Assessment and plan #Acute kidney injury: s/p hemodialysis daily x 3. Plan on HD tomorrow. Reassess daily for additional sessions. #Has underlying chronic kidney disease her baseline creatinine is around 1.7-[address] Rivers's office #Respiratory failure resulting from Covid 19 pneumonia + fluid overload- being followed by pulmonary service. UF with HD as tolerated. S/p 2 L removed daily x 3d. Limit fluid intake to 1L/d #Covid 19 viral pneumonia with ARDS like picture, patient has multiorgan failure, she will need ongoing renal replacement therapy as tolerated for now. Monitor labs and I/O daily. # Keep MAP> 65 # Renally dose medications # Renal diet Subjective Date of service: 08/25/20 Principal diagnosis: Acute respiratory failure with hypoxia, ANGELIQUE superimposed onCKD, Covid pneum Interval history: On high flow Transferred to floor Sitting up in bed during visit Patient was seen for her renal issues Nursing, interdisciplinary and consult notes were reviewed Vitals, input and output, medications and labs were reviewed Objective - Exam Narrative Exam: General: No acute distress Neck: Supple, no JVD Extremity: No peripheral cyanosis, edema Neurological: Alert, awake, no asterixis Dermatology: No skin rash Psych: No agitation Musculoskeletal: No joint effusion - Vital Signs Vital signs: Vital Signs - 12hr 08/25/20 08/25/20 08/25/20 03:51 03:54 05:47 Temperature 98.3 F 97.0 F L Pulse Rate 92 H 92 H Pulse Rate [ Anterior Bilateral Throughout] Respiratory 19 18 18 Rate Respiratory Rate [Anterior Bilateral Throughout] Blood Pressure 123/74 136/73 O2 Sat by Pulse 98 95 Oximetry 08/25/20 08/25/20 08/25/20 08:35 10:00 10:54 Temperature 99.1 F Pulse Rate 111 H Pulse Rate [ 96 H Anterior Bilateral Throughout] Respiratory 18 22 Rate Respiratory 16 Rate [Anterior Bilateral Throughout] Blood Pressure 108/63 O2 Sat by Pulse 95 97 Oximetry - Lab 08/25/20 08:14 08/25/20 08:14 Most recent lab results Calcium 9.4 mg/dL (8.4-10.2) 08/25/20 08:14 Phosphorus 5.90 mg/dL (2.5-4.5) H 08/17/20 09:35 Urine Creatinine 248.0 mg/dL (0.1-20.0) H 08/17/20 17:45 Urine Total Protein 196 mg/dL (5-11.8) H 08/17/20 17:45 Medications & Allergies - Medications Allergies/Adverse Reactions: Allergies gabapentin [From Neurontin] Allergy (Verified 08/15/20 17:25) Unknown rosuvastatin calcium [From Crestor] Allergy (Verified 08/15/20 17:25) Rash fluticasone propionate [From Advair Diskus] Adverse Reaction (Verified 08/15/20 17:25) Headache salmeterol xinafoate [From Advair Diskus] Adverse Reaction (Verified 08/15/20 17:25) Headache IV DYE Allergy (Uncoded 08/24/20 10:28) Itching Home Medications: Home Medications Medication Instructions Recorded Confirmed Last Taken Type Colchicine [Colcrys] 0.6 mg PO DAILY 08/15/20 08/15/20 Unknown History Cyanocobalamin (Vitamin B-12) 1,000 mcg IJ QMONTH 08/15/20 08/15/20 Unknown History [Physicians Ez Use B-12] Ergocalciferol [Vitamin D2] 1 cap PO QWEEK 08/15/20 08/15/20 Unknown History Ezetimibe/Simvastatin 1 each PO DAILY 08/15/20 08/15/20 Unknown History [Ezetimibe-Simvastatin 10-20 mg] Famotidine [Pepcid] 40 mg PO DAILY 08/15/20 08/15/20 Unknown History Furosemide [Lasix] 40 mg PO BID 08/15/20 08/15/20 Unknown History HYDROcodone/APAP 5-325 [Lerona 1 each PO Q6HR PRN 08/15/20 08/15/20 Unknown History 5/325] Linagliptin [Tradjenta] 5 mg PO QDAY 08/15/20 08/15/20 Unknown History Omeprazole 40 mg PO DAILY 08/15/20 08/15/20 Unknown History Potassium Chloride [K-Dur] 20 meq PO BID 08/15/20 08/15/20 Unknown History Valsartan [Diovan] 160 mg PO QDAY 08/15/20 08/15/20 Unknown History allopurinoL [Zyloprim] 200 mg PO DAILY 08/15/20 08/15/20 Unknown History carvediloL [Coreg] 3.125 mg PO BID 08/15/20 08/15/20 Unknown History Albuterol Sulfate [Proair 90 mcg INHALATION Q4H PRN 08/17/20 08/17/20 Unknown History Digihaler] Spiriva 2.5 mcg INHALATION DAILY 08/17/20 08/17/20 Unknown History Symbicort 160-4.5 Mcg Inhaler 160 mcg INHALATION BID 08/17/20 08/17/20 Unknown History Active Medications: Generic Name Dose Route Start Last Admin Trade Name Freq PRN Reason Stop Dose Admin Acetaminophen 650 mg 08/15/20 22:16 08/19/20 01:17 Acetaminophen 325 Mg Tab PO 650 mg Q4H PRN Administration Pain MILD(1-3)/Fever >100.5/TELLO Hydrocodone Bitart/Acetaminophen 1 each 08/15/20 22:06 08/23/20 17:22 Hydrocodone/Acetaminophen 5-325 Mg Tab PO 1 each Q6HR PRN Administration Pain, Moderate (4-6) Albuterol 2.5 mg 08/17/20 19:26 08/25/20 08:34 Albuterol 2.5 Mg/3 Ml Nebu IH Not Given Q6HRT SYLVAIN Apixaban 5 mg 08/24/20 11:00 08/25/20 09:02 Apixaban 5 Mg Tab PO 5 mg Q12HR SYLVAIN Administration Protocol Ascorbic Acid 1,000 mg 08/15/20 23:00 08/25/20 09:02 Ascorbic Acid 500 Mg Tab PO 1,000 mg BID SYLVAIN Administration Benzonatate 100 mg 08/25/20 14:00 08/25/20 13:12 Benzonatate 100 Mg Cap PO 100 mg Q8HR SYLVAIN Administration Calcitriol 0.25 mcg 08/18/20 10:00 08/25/20 09:02 Calcitriol 0.25 Mcg Cap PO 0.25 mcg QDAY SYLVAIN Administration Ezetimibe 10 mg 08/16/20 10:00 08/25/20 09:01 Ezetimibe 10 Mg Tab PO 10 mg DAILY SYLVAIN Administration Hydromorphone HCl 0.5 mg 08/15/20 22:16 Hydromorphone 1 Mg/1 Ml Inj IV Q3H PRN Pain , Severe (7-10) Dexamethasone 20 mg/ Sodium 55 mls @ 100 mls/hr 08/18/20 15:00 08/25/20 12:16 Chloride IV 08/25/20 14:59 100 mls/hr Q12HR SYLVAIN Administration Sodium Chloride 100 mls @ 999 mls/hr 08/24/20 08:20 Nacl 0.9% IV SARAI PRN Hypotension Insulin Glargine 35 units 08/24/20 08:00 08/25/20 09:04 Insulin Glargine 100 Units/Ml SUB-Q 35 units QAMDIAB SYLVAIN Administration Insulin Human Lispro 0 unit 08/18/20 13:23 08/25/20 12:14 Insulin Lispro 100 Unit/Ml SUB-Q 8 unit ACHS SYLVAIN Administration Protocol Linagliptin 5 mg 08/16/20 10:00 08/25/20 09:02 Linagliptin 5 Mg Tab PO 5 mg QDAY SYLVAIN Administration Metoclopramide HCl 5 mg 08/15/20 22:37 Metoclopramide 10 Mg/2 Ml Inj IV Q6H PRN Nausea And Vomiting Multivit/Ca Carb/B Cmplx/FA/Prenat 1 cap 08/18/20 10:00 08/25/20 09:01 Folic Acid/Vit B Comp W-C 1 Mg (Renal Caps) PO 1 cap DAILY SYLVAIN Administration Ondansetron HCl 4 mg 08/15/20 22:16 Ondansetron 4 Mg/2 Ml Inj IV Q8H PRN Nausea And Vomiting Oxycodone/Acetaminophen 1 tab 08/15/20 22:16 08/18/20 09:58 Oxycodone /Acetaminophen 5-325mg Tab PO 1 tab Q6H PRN Administration Pain, Moderate (4-6) Pantoprazole Sodium 40 mg 08/16/20 10:00 08/25/20 09:02 Pantoprazole 40 Mg Tab PO 40 mg DAILY SYLVAIN Administration Pravastatin Sodium 40 mg 08/16/20 10:00 08/25/20 09:02 Pravastatin 40 Mg Tab PO 40 mg DAILY SLYVAIN Administration Pseudoephedrine/Acetam/Chlorphenir 10 ml 08/18/20 10:30 08/23/20 17:21 Guaifenesin/Codeine 100-10mg Oral Liqd 5 Ml PO 10 ml Q4H PRN Administration Cough Sodium Chloride 10 ml 08/15/20 23:00 08/25/20 10:00 Sodium Chloride 0.9% 10 Ml Flush Syringe IV 10 ml BID SYLVAIN Administration Sodium Chloride 10 ml 08/15/20 22:16 Sodium Chloride 0.9% 10 Ml Flush Syringe IV PRN PRN LINE FLUSH Zinc Sulfate 220 mg 08/15/20 23:00 08/25/20 09:02 Zinc Sulfate 220 Mg Cap PO 220 mg BID SYLVAIN Administration
[2020-08-26] MEDS: INSULIN LISPRO 100 UNIT/ML SUB-Q SCH ×5 (01:17→22:44)
[2020-08-26] MEDS: ALBUTEROL 2.5 MG/3 ML NEBU IH SCH ×4 (05:09→21:17)
[2020-08-26] MEDS: BENZONATATE 100 MG CAP PO SCH ×3 (06:34→22:42)
[2020-08-26] MEDS: INSULIN GLARGINE 100 UNITS/ML SUB-Q SCH ×2 (08:35→22:42)
--- NOTE | 2020-08-26 09:44 | Progress Note ---
Assessment and Plan Assessment and plan: #Acute hypoxic respiratory failure Secondary to Covid pneumonia Continue oxygen supplementation-on high flow 30 L FiO2 70% #COVID-19 pneumonia Status post azithromycin and ceftriaxone Not a candidate for remdesivir due to impaired renal function Continue dexamethasone Incentive spirometer Prone positioning as tolerated Pulmonology following ID on board #ANGELIQUE on CKD now on hemodialysis Likely ATN Tolerating hemodialysis Continue hemodialysis as scheduled Nephrology on board #Elevated D-dimer Ultrasound lower extremity Doppler negative Unable to obtain CTA chest due to allergies Continue apixaban 5 mg twice a day #HARPER, COPD States that she uses BiPAP at home BiPAP QHS #Diabetes mellitus Lantus and lispro Tradjenta #Hyperlipidemia Continue statins #Hypertension Continue medication # Oral thrush Nystatin #COPD Stable DVT/GI prophylaxis: SCDs to BLE while in bed, PPI, Eliquis twice daily Disposition: TTF History Interval history: This is a 64-year-old female with hypertension, diabetes, COPD, CVA, gout, hyperlipidemia who presented to the emergency department on 08/15 for a productive cough, wheezing, headache, subjective fevers scratchy throat ongoing for 4 weeks since 07/21/2020 s/p Z-Bipin and steroids who was COVID-19 positive prior to a dmission. Pulmonology, infectious disease, nephrology were consulted. 08/26. On HFNC - 30 L 705 FiO2. She has HARPER and uses BIPAP at home. Will place order for BIPAP 08/25. On high flow nasal cannula 30 L, FiO2 90%. Started empirically on Eliquis 5 mg twice daily for possible PE. She has no complaints this morning. Has some cough. Pulmonology and ID following. Remains on steroids 08/24: Patient remains on HFNC at 40L, 80% FiO2, her ddimer>[id number] and her BLE Doppler US (-) for DVT. Unable to obtain a CTA chest due to allergy to contrast. We will treat Eliquis 5 mg twice daily. Wean supplemental oxygenation as tolerated. Patient will be transferred to the floor today. 08/23: Patient complains of cough, intermittent shortness of breath, received hemodialysis today and remains on high flow nasal cannula at 40 L, 80%. No acute events reported overnight. VQ scan and bilateral lower extremity Doppler ultrasound pending 08/22: High flow nasal cannula, intermittent HD, high-dose steroids 08/21: High flow nasal cannula 08/20:-High flow nasal cannula 08/19:-High flow nasal cannula, PICC line ordered, bicarb 08/18: High flow nasal cannula, transferred to ICU 08/17: Hypoxia,-nasal cannula 08/16: High flow nasal cannula, Vas-Cath placement for intermittent HD, COVID-19 PCR positive Hospitalist Physical - Physical exam Narrative exam: VITAL SIGNS: Reviewed. GENERAL: Awake HEAD: No signs of head trauma. EYES: Pupils are equal. Extraocular motions intact. MOUTH: Oropharynx is normal. NECK: No adenopathy, no JVD. CHEST: Chest with diminished breath sounds bilaterally. No wheezes, rales, or rhonchi. CARDIAC: normal S1 and S2, without murmurs, gallops, or rubs. ABDOMEN: Soft, non tender and non distended. No rebound or guarding, and no masses palpated. Bowel Sounds normal. MUSCULOSKELETAL: No edema NEUROLOGIC EXAM: Alert and oriented x3. No focal neurologic deficits SKIN: No obvious lesions - Constitutional Vitals: Temp Pulse Resp BP Pulse Ox 97.3 F L 77 20 105/53 96 08/26/20 04:54 08/26/20 04:54 08/26/20 04:54 08/26/20 04:54 08/26/20 09:07 Results - Labs CBC & Chem 7: 08/25/20 08:14 08/27/20 06:13 Labs: Laboratory Last Values WBC 19.0 K/mm3 (4.5-11.0) H 08/25/20 08:14 RBC 3.86 M/mm3 (3.65-5.03) 08/25/20 08:14 Hgb 10.3 gm/dl (10.1-14.3) 08/25/20 08:14 Hct 32.6 % (30.3-42.9) 08/25/20 08:14 MCV 84 fl (79-97) 08/25/20 08:14 MCH 27 pg (28-32) L 08/25/20 08:14 MCHC 32 % (30-34) 08/25/20 08:14 RDW 15.8 % (13.2-15.2) H 08/25/20 08:14 Plt Count 234 K/mm3 (140-440) 08/25/20 08:14 Lymph % (Auto) 5.9 % (13.4-35.0) L 08/18/20 08:36 [place] % (Auto) 6.6 % (0.0-7.3) 08/18/20 08:36 Eos % (Auto) 0.0 % (0.0-4.3) 08/18/20 08:36 Baso % (Auto) 0.2 % (0.0-1.8) 08/18/20 08:36 Lymph # (Auto) 0.5 K/mm3 (1.2-5.4) L 08/18/20 08:36 [place] # (Auto) 0.6 K/mm3 (0.0-0.8) 08/18/20 08:36 Eos # (Auto) 0.0 K/mm3 (0.0-0.4) 08/18/20 08:36 Baso # (Auto) 0.0 K/mm3 (0.0-0.1) 08/18/20 08:36 Add Manual Diff Complete 08/19/20 04:23 Total Counted 100 08/19/20 04:23 Seg Neutrophils % 87.3 % (40.0-70.0) H 08/18/20 08:36 Seg Neuts % (Manual) 84.0 % (40.0-70.0) H 08/19/20 04:23 Band Neutrophils % 3.0 % 08/19/20 04:23 Lymphocytes % (Manual) 9.0 % (13.4-35.0) L 08/19/20 04:23 Monocytes % (Manual) 4.0 % (0.0-7.3) 08/19/20 04:23 Nucleated RBC % Not Reportable 08/19/20 04:23 Seg Neutrophils # 7.4 K/mm3 (1.8-7.7) 08/18/20 08:36 Seg Neutrophils # Man 5.0 K/mm3 (1.8-7.7) 08/19/20 04:23 Band Neutrophils # 0.2 K/mm3 08/19/20 04:23 Lymphocytes # (Manual) 0.5 K/mm3 (1.2-5.4) L 08/19/20 04:23 Abs React Lymphs (Man) 0.0 K/mm3 08/19/20 04:23 Monocytes # (Manual) 0.2 K/mm3 (0.0-0.8) 08/19/20 04:23 Eosinophils # (Manual) 0.0 K/mm3 (0.0-0.4) 08/19/20 04:23 Basophils # (Manual) 0.0 K/mm3 (0.0-0.1) 08/19/20 04:23 Metamyelocytes # 0.0 K/mm3 08/19/20 04:23 Myelocytes # 0.0 K/mm3 08/19/20 04:23 Promyelocytes # 0.0 K/mm3 08/19/20 04:23 Blast Cells # 0.0 K/mm3 08/19/20 04:23 WBC Morphology Not Reportable 08/19/20 04:23 Hypersegmented Neuts Not Reportable 08/19/20 04:23 Hyposegmented Neuts Not Reportable 08/19/20 04:23 Hypogranular Neuts Not Reportable 08/19/20 04:23 Smudge Cells Not Reportable 08/19/20 04:23 Toxic Granulation Not Reportable 08/19/20 04:23 Toxic Vacuolation Not Reportable 08/19/20 04:23 Dohle Bodies Not Reportable 08/19/20 04:23 Pelger-Huet Anomaly Not Reportable 08/19/20 04:23 Shannon Rods Not Reportable 08/19/20 04:23 Platelet Estimate Consistent w auto 08/19/20 04:23 Clumped Platelets Not Reportable 08/19/20 04:23 Plt Clumps, EDTA Not Reportable 08/19/20 04:23 Large Platelets Not Reportable 08/19/20 04:23 Giant Platelets Not Reportable 08/19/20 04:23 Platelet Satelliting Not Reportable 08/19/20 04:23 Plt Morphology Comment Not Reportable 08/19/20 04:23 RBC Morphology Not Reportable 08/19/20 04:23 Dimorphic RBCs Not Reportable 08/19/20 04:23 Polychromasia Not Reportable 08/19/20 04:23 Hypochromasia Not Reportable 08/19/20 04:23 Poikilocytosis 1+ 08/19/20 04:23 Anisocytosis 1+ 08/19/20 04:23 Microcytosis Not Reportable 08/19/20 04:23 Macrocytosis Not Reportable 08/19/20 04:23 Spherocytes Not Reportable 08/19/20 04:23 Pappenheimer Bodies Not Reportable 08/19/20 04:23 Sickle Cells Not Reportable 08/19/20 04:23 Target Cells Not Reportable 08/19/20 04:23 Tear Drop Cells Rare 08/19/20 04:23 Ovalocytes Few 08/19/20 04:23 Helmet Cells Not Reportable 08/19/20 04:23 Brice-Mccune Bodies Not Reportable 08/19/20 04:23 Zwolle Rings Not Reportable 08/19/20 04:23 Parlin Cells 1+ 08/19/20 04:23 Bite Cells Not Reportable 08/19/20 04:23 Crenated Cell Not Reportable 08/19/20 04:23 Elliptocytes Few 08/19/20 04:23 Acanthocytes (Spur) Not Reportable 08/19/20 04:23 Rouleaux Not Reportable 08/19/20 04:23 Hemoglobin C Crystals Not Reportable 08/19/20 04:23 Schistocytes Not Reportable 08/19/20 04:23 Malaria parasites Not Reportable 08/19/20 04:23 Mateusz Bodies Not Reportable 08/19/20 04:23 Hem Pathologist Commnt No 08/19/20 04:23 D-Dimer > 34515 ng/mlDDU (0-234) H 08/23/20 14:07 VBG pH 7.389 (7.320-7.420) 08/15/20 17:12 Sodium 139 mmol/L (137-145) 08/25/20 08:14 Potassium 4.9 mmol/L (3.6-5.0) 08/25/20 08:14 Chloride 98.2 mmol/L (98-107) 08/25/20 08:14 Carbon Dioxide 25 mmol/L (22-30) 08/25/20 08:14 Anion Gap 21 mmol/L 08/25/20 08:14 BUN 65 mg/dL (7-17) H 08/25/20 08:14 Creatinine 6.6 mg/dL (0.6-1.2) H 08/25/20 08:14 Estimated GFR 8 ml/min 08/25/20 08:14 BUN/Creatinine Ratio 10 % 08/25/20 08:14 Glucose 278 mg/dL (65-100) H 08/25/20 08:14 POC Glucose 426 mg/dL (70-105) H 08/26/20 01:10 Hemoglobin A1c 7.6 % (4-6) H 08/16/20 04:32 Lactic Acid 1.30 mmol/L (0.7-2.0) 08/15/20 17:01 Calcium 9.4 mg/dL (8.4-10.2) 08/25/20 08:14 Phosphorus 5.90 mg/dL (2.5-4.5) H 08/17/20 09:35 Ferritin 1053.0 ng/mL (10.0-200.0) H 08/23/20 14:07 Total Bilirubin < 0.20 mg/dL (0.1-1.2) 08/19/20 04:23 AST 40 units/L (5-40) 08/19/20 04:23 ALT 13 units/L (7-56) 08/19/20 04:23 Alkaline Phosphatase 58 units/L (35-129) 08/19/20 04:23 Lactate Dehydrogenase 994 units/L (91-180) H 08/23/20 14:07 C-Reactive Protein 0.80 mg/dL (0.00-1.30) 08/23/20 14:07 Total Protein 5.8 g/dL (6.3-8.2) L 08/19/20 04:23 Albumin 2.5 g/dL (3.9-5) L 08/19/20 04:23 Albumin/Globulin Ratio 0.8 % 08/19/20 04:23 Procalcitonin 2.11 ng/mL (<0.15) 08/15/20 17:01 PTH Intact 452.6 pg/mL (15-65) H 08/17/20 09:35 Urine Color Yellow (Yellow) 08/17/20 17:45 Urine Turbidity Turbid (Clear) 08/17/20 17:45 Urine pH 5.0 (5.0-7.0) 08/17/20 17:45 Ur Specific [place] 1.039 (1.003-1.030) H 08/17/20 17:45 Urine Protein >500 mg/dL (Negative) 08/17/20 17:45 Urine Glucose (UA) 50 mg/dL (Negative) 08/17/20 17:45 Urine Ketones Neg mg/dL (Negative) 08/17/20 17:45 Urine Blood Neg (Negative) 08/17/20 17:45 Urine Nitrite Neg (Negative) 08/17/20 17:45 Urine Bilirubin Neg (Negative) 08/17/20 17:45 Urine Urobilinogen < 2.0 mg/dL (<2.0) 08/17/20 17:45 Ur Leukocyte Esterase Neg (Negative) 08/17/20 17:45 Urine WBC (Auto) 32.0 /HPF (0.0-6.0) H 08/17/20 17:45 Urine RBC (Auto) 32.0 /HPF (0.0-6.0) 08/17/20 17:45 U Epithel Cells (Auto) 44.0 /HPF (0-13.0) H 08/17/20 17:45 Urine Bacteria (Auto) 2+ /HPF (Negative) 08/17/20 17:45 Urine Creatinine 248.0 mg/dL (0.1-20.0) H 08/17/20 17:45 Urine Total Protein 196 mg/dL (5-11.8) H 08/17/20 17:45 Coronavirus (PCR) Positive (Negative) A 08/16/20 Unknown Hepatitis A IgM Ab Non-reactive (NonReactive) 08/16/20 21:00 Hep Bs Antigen Non-reactive (Negative) 08/16/20 21:00 Hep B Core IgM Ab Non-reactive (NonReactive) 08/16/20 21:00 Hepatitis C Antibody Non-reactive (NonReactive) 08/16/20 21:00 Odom/IV: Voiding Method External Female Catheter Active Medications - Current Medications Current Medications: Generic Name Dose Route Start Last Admin Trade Name Freq PRN Reason Stop Dose Admin Acetaminophen 650 mg 08/15/20 22:16 08/19/20 01:17 Acetaminophen 325 Mg Tab PO 650 mg Q4H PRN Administration Pain MILD(1-3)/Fever >100.5/TELLO Hydrocodone Bitart/Acetaminophen 1 each 08/15/20 22:06 08/23/20 17:22 Hydrocodone/Acetaminophen 5-325 Mg Tab PO 1 each Q6HR PRN Administration Pain, Moderate (4-6) Albuterol 2.5 mg 08/17/20 19:26 08/26/20 09:01 Albuterol 2.5 Mg/3 Ml Nebu IH 2.5 mg Q6HRT SYLVAIN Administration Apixaban 5 mg 08/24/20 11:00 08/25/20 21:37 Apixaban 5 Mg Tab PO 5 mg Q12HR SYLVAIN Administration Protocol Ascorbic Acid 1,000 mg 08/15/20 23:00 08/25/20 21:37 Ascorbic Acid 500 Mg Tab PO 1,000 mg BID SYLVAIN Administration Benzonatate 100 mg 08/25/20 14:00 08/26/20 06:34 Benzonatate 100 Mg Cap PO 100 mg Q8HR SYLVAIN Administration Calcitriol 0.25 mcg 08/18/20 10:00 08/25/20 09:02 Calcitriol 0.25 Mcg Cap PO 0.25 mcg QDAY SYLVAIN Administration Ezetimibe 10 mg 08/16/20 10:00 08/25/20 09:01 Ezetimibe 10 Mg Tab PO 10 mg DAILY SYLVAIN Administration Hydromorphone HCl 0.5 mg 08/15/20 22:16 Hydromorphone 1 Mg/1 Ml Inj IV Q3H PRN Pain , Severe (7-10) Sodium Chloride 100 mls @ 999 mls/hr 08/24/20 08:20 Nacl 0.9% IV SARAI PRN Hypotension Insulin Glargine 35 units 08/26/20 08:30 08/26/20 08:35 Insulin Glargine 100 Units/Ml SUB-Q 35 units BID SYLVAIN Administration Insulin Human Lispro 0 unit 08/18/20 13:23 08/26/20 08:32 Insulin Lispro 100 Unit/Ml SUB-Q 3 unit ACHS SYLVAIN Administration Protocol Linagliptin 5 mg 08/16/20 10:00 08/25/20 09:02 Linagliptin 5 Mg Tab PO 5 mg QDAY SYLVAIN Administration Metoclopramide HCl 5 mg 08/15/20 22:37 Metoclopramide 10 Mg/2 Ml Inj IV Q6H PRN Nausea And Vomiting Multivit/Ca Carb/B Cmplx/FA/Prenat 1 cap 08/18/20 10:00 08/25/20 09:01 Folic Acid/Vit B Comp W-C 1 Mg (Renal Caps) PO 1 cap DAILY SYLVAIN Administration Ondansetron HCl 4 mg 08/15/20 22:16 Ondansetron 4 Mg/2 Ml Inj IV Q8H PRN Nausea And Vomiting Oxycodone/Acetaminophen 1 tab 08/15/20 22:16 08/18/20 09:58 Oxycodone /Acetaminophen 5-325mg Tab PO 1 tab Q6H PRN Administration Pain, Moderate (4-6) Pantoprazole Sodium 40 mg 08/16/20 10:00 08/25/20 09:02 Pantoprazole 40 Mg Tab PO 40 mg DAILY SYLVAIN Administration Pravastatin Sodium 40 mg 08/16/20 10:00 08/25/20 09:02 Pravastatin 40 Mg Tab PO 40 mg DAILY SYLVAIN Administration Pseudoephedrine/Acetam/Chlorphenir 10 ml 08/18/20 10:30 08/23/20 17:21 Guaifenesin/Codeine 100-10mg Oral Liqd 5 Ml PO 10 ml Q4H PRN Administration Cough Sodium Chloride 10 ml 08/15/20 23:00 08/25/20 21:37 Sodium Chloride 0.9% 10 Ml Flush Syringe IV 10 ml BID SYLVAIN Administration Sodium Chloride 10 ml 08/15/20 22:16 Sodium Chloride 0.9% 10 Ml Flush Syringe IV PRN PRN LINE FLUSH Zinc Sulfate 220 mg 08/15/20 23:00 08/25/20 21:37 Zinc Sulfate 220 Mg Cap PO 220 mg BID SYLVAIN Administration Nutrition/Malnutrition Assess - Dietary Evaluation Nutrition/Malnutrition Findings: Nutrition Notes Start: 08/22/20 12:53 Freq: Status: Active Protocol: Document 08/26/20 09:21 (Rec: 08/26/20 09:27 [id number]) Nutrition Notes Initial or Follow up Reassessment Current Diagnosis Acute Kidney Injury,CKD(stage I-IV),COPD,Diabetes, Respiratory Failure Other Pertinent Diagnosis COVID (+), on HD, pneu Current Diet Cardiac, Consistent CHO Labs/Tests BUN 65 Cr 6.5 BG 278 Pertinent Medications Reviewed Height 5 ft 2 in Weight 138.2 kg [place] Body Weight (kg) 50.00 BMI 55.7 Weight Status Morbidly Obese Subjective/Other Information FU for intakes. Pt reports eating 50% of meals and drinking some ONS but unsure how much. Pt reports some trouble swallowing which she states she told the MD this AM . MACHINIST/MACHINE BUILDER eval recommened and RN made aware. Percent of energy/protein needs met: 60%/37% (excluding ONS) Burn Absent Trauma Absent GI Symptoms None Difficulty In Swallowing Current % PO Fair (50-74%) Minimum of two criteria No physical signs of malnutrition #1 Nutrition Diagnosis Inadequate oral intake As Evidenced by Signs and Symptoms pt eating 50% of meals Diagnosis Progress(for reassessment Worsened documentation) Is patient on ventilator? No Is Patient Ambulatory and/or Out of Bed No REE-([facility]-confined to bed) 2254.980 Kcal/Kg value to use for calculation 12 Approximate Energy Requirements Using 1658 kcal/Kg Calculation Used for Recommendations Kcal/kg Additional Notes Protein: greater than 115g (>1 .2g/kg AdjBW 95.5kg) Fluid: 1000ml or per MD Nutrition Intervention Change Diet Order: Renal, cardiac, consistent CHO Add Supplement/Snack (indicate name/kcal Nep[place] daily /protein ) Provides kCal: 425 Provides Protein (gm) 19 Goal #1 Meet at least 75% of protein and energy needs via PO and ONS intakes Goal #2 ONS tolerance Anticipated Discharge Needs: Renal/ Consistent CHO diet Follow-Up By: 08/30/20 Additional Comments FU for intakes, MACHINIST/MACHINE BUILDER consult, ONS tolerance
[2020-08-26] MEDS: ZINC SULFATE 220 MG CAP PO SCH ×2 (10:53→22:42)
[2020-08-26] MEDS: CALCITRIOL 0.25 MCG CAP PO SCH (10:53)
[2020-08-26] MEDS: EZETIMIBE 10 MG TAB PO SCH (10:53)
[2020-08-26] MEDS: ASCORBIC ACID 500 MG TAB PO SCH ×2 (10:53→22:42)
[2020-08-26] MEDS: FOLIC ACID/VIT B COMP W-C 1 MG (RENAL CAPS) PO SCH (10:53)
[2020-08-26] MEDS: PRAVASTATIN 40 MG TAB PO SCH (10:53)
[2020-08-26] MEDS: APIXABAN 5 MG TAB PO SCH ×2 (10:53→22:42)
[2020-08-26] MEDS: PANTOPRAZOLE 40 MG TAB PO SCH (10:53)
[2020-08-26] MEDS: LINAGLIPTIN 5 MG TAB PO SCH (10:54)
[2020-08-26 11:25] LABS: Calcium 8.7 mg/dL (8.4-10.2)
--- NOTE | 2020-08-26 12:52 | Progress Note ---
Assessment and Plan Cultures: SARS CoV2 PCR: positive 08/15/2020 blood culture: No growth 08/17/2020 urine culture: Skin fay A/P: 64-year-old female with hypertension, diabetes, COPD, prior CVA, CKD was admitted to the hospital with cough and shortness of breath along with wheezing and headache going on for almost a month: #Bilateral pneumonia: secondary to COVID-19. Test was positive as outpatient as well. Symptomatic for a month. s/p empiric abx. Given prolonged symptoms and renal failure, unlikely to benefit from Remdesivir #Acute hypoxic respiratory failure: on HFNC. #ANGELIQUE on CKD: On intermittent HD per nephrology. #Mild transaminitis: Probably from COVID-19. Hepatitis panel negative. Resolved. Recs: -continue steroids, completed higher dose -s/p abx -on prophylactic anticoagulation per hospital protocol due elevated d-dimer Dale Suarez MD, FACP [facility] ([facility] O: [phone] F: [phone] Subjective Date of service: 08/26/20 Principal diagnosis: Acute respiratory failure with hypoxia, ANGELIQUE superimposed onCKD, Covid pneum Interval history: No fever. Remains on HFNC. Objective - Exam Narrative Exam: Physical Exam (reviewed in chart to minimize risk of transmission) Constitutional: deferred Head, Ears, Nose: deferred Eyes: deferred Neck: deferred Oral: deferred Cardiovascular: deferred Respiratory: deferred GI: deferred Musculoskeletal: deferred Skin: deferred Hem/Lymphatic: deferred Psych: deferred Neurological: deferred - Constitutional Vitals: Vital Signs Temp Pulse Resp BP Pulse Ox 97.3 F L 77 20 105/53 96 08/26/20 04:54 08/26/20 04:54 08/26/20 04:54 08/26/20 04:54 08/26/20 09:07 Temperature -Last 24 Hours Temperature 97.3 F Temperature 98.7 F Temperature 98.2 F - Labs CBC & Chem 7: 08/25/20 08:14 08/26/20 10:38 Labs: Abnormal lab results 08/25/20 08/25/20 08/26/20 Range/Units 16:18 21:52 01:10 Chloride (98-107) mmol/L BUN (7-17) mg/dL Creatinine (0.6-1.2) mg/dL Glucose (65-100) mg/dL POC Glucose 329 H 311 H 426 H (70-105) mg/dL 08/26/20 08/26/20 08/26/20 Range/Units 08:21 10:38 11:05 Chloride 95.5 L (98-107) mmol/L BUN 95 H (7-17) mg/dL Creatinine 8.9 H (0.6-1.2) mg/dL Glucose 216 H (65-100) mg/dL POC Glucose 182 H 191 H (70-105) mg/dL
[2020-08-26] MEDS: dexAMETHasone 4 MG/ML VIAL IV SCH (14:25)
[2020-08-26] MEDS: NYSTATIN 500,000 UNIT/5 ML ORAL LIQD PO SCH (18:25)
--- NOTE | 2020-08-26 19:16 | Progress Note ---
Assessment and Plan Assessment and plan #Acute kidney injury: s/p hemodialysis daily x 3. Now continue MWF. Assess daily for need of additional sessions #Has underlying chronic kidney disease her baseline creatinine is around 1.7-[address] Rivers's office #Respiratory failure resulting from Covid 19 pneumonia + fluid overload- being followed by pulmonary service. UF with HD as tolerated. S/p 2 L removed daily x 3d. Continue UF 2-3 L with iHD. Limit fluid intake to 1L/d #Covid 19 viral pneumonia with ARDS like picture, patient has multiorgan failure, she will need ongoing renal replacement therapy as tolerated for now. Monitor labs and I/O daily. # Keep MAP> 65 # Renally dose medications # Renal diet Subjective Date of service: 08/26/20 Principal diagnosis: Acute respiratory failure with hypoxia, ANGELIQUE superimposed onCKD, Covid pneum Interval history: Remains on high flow Patient was seen for her renal issues Nursing, interdisciplinary and consult notes were reviewed Vitals, input and output, medications and labs were reviewed Objective - Exam Narrative Exam: General: No acute distress Neck: Supple, no JVD Extremity: No peripheral cyanosis, edema Neurological: Alert, awake, no asterixis Dermatology: No skin rash Psych: No agitation Musculoskeletal: No joint effusion - Vital Signs Vital signs: Vital Signs - 12hr 08/26/20 08/26/20 08/26/20 09:07 11:04 14:25 Temperature 98.5 F 98.5 F Pulse Rate 107 H 91 H Respiratory 22 24 Rate Blood Pressure 129/70 139/58 O2 Sat by Pulse 96 95 Oximetry O2 Sat by Pulse 100 Oximetry [ Anterior Bilateral Throughout] 08/26/20 08/26/20 08/26/20 14:30 14:45 15:00 Temperature Pulse Rate 89 89 92 H Respiratory Rate Blood Pressure 147/64 137/60 143/61 O2 Sat by Pulse Oximetry O2 Sat by Pulse Oximetry [ Anterior Bilateral Throughout] 08/26/20 08/26/20 08/26/20 15:15 15:30 15:45 Temperature Pulse Rate 95 H 99 H 100 H Respiratory Rate Blood Pressure 137/55 133/62 127/57 O2 Sat by Pulse Oximetry O2 Sat by Pulse Oximetry [ Anterior Bilateral Throughout] 08/26/20 08/26/20 08/26/20 16:00 16:15 16:30 Temperature Pulse Rate 95 H 104 H 105 H Respiratory Rate Blood Pressure 122/58 132/54 123/56 O2 Sat by Pulse Oximetry O2 Sat by Pulse Oximetry [ Anterior Bilateral Throughout] 08/26/20 08/26/20 08/26/20 16:45 17:00 17:15 Temperature Pulse Rate 107 H 108 H 113 H Respiratory Rate Blood Pressure 126/56 119/53 119/60 O2 Sat by Pulse Oximetry O2 Sat by Pulse Oximetry [ Anterior Bilateral Throughout] 08/26/20 17:30 Temperature Pulse Rate 110 H Respiratory Rate Blood Pressure 129/55 O2 Sat by Pulse Oximetry O2 Sat by Pulse Oximetry [ Anterior Bilateral Throughout] - Lab 08/25/20 08:14 08/26/20 10:38 Most recent lab results Calcium 8.7 mg/dL (8.4-10.2) 08/26/20 10:38 Phosphorus 5.90 mg/dL (2.5-4.5) H 08/17/20 09:35 Urine Creatinine 248.0 mg/dL (0.1-20.0) H 08/17/20 17:45 Urine Total Protein 196 mg/dL (5-11.8) H 08/17/20 17:45 Medications & Allergies - Medications Allergies/Adverse Reactions: Allergies gabapentin [From Neurontin] Allergy (Verified 08/15/20 17:25) Unknown rosuvastatin calcium [From Crestor] Allergy (Verified 08/15/20 17:25) Rash fluticasone propionate [From Advair Diskus] Adverse Reaction (Verified 08/15/20 17:25) Headache salmeterol xinafoate [From Advair Diskus] Adverse Reaction (Verified 08/15/20 17:25) Headache IV DYE Allergy (Uncoded 08/24/20 10:28) Itching Home Medications: Home Medications Medication Instructions Recorded Confirmed Last Taken Type Colchicine [Colcrys] 0.6 mg PO DAILY 08/15/20 08/15/20 Unknown History Cyanocobalamin (Vitamin B-12) 1,000 mcg IJ QMONTH 08/15/20 08/15/20 Unknown History [Physicians Ez Use B-12] Ergocalciferol [Vitamin D2] 1 cap PO QWEEK 08/15/20 08/15/20 Unknown History Ezetimibe/Simvastatin 1 each PO DAILY 08/15/20 08/15/20 Unknown History [Ezetimibe-Simvastatin 10-20 mg] Famotidine [Pepcid] 40 mg PO DAILY 08/15/20 08/15/20 Unknown History Furosemide [Lasix] 40 mg PO BID 08/15/20 08/15/20 Unknown History HYDROcodone/APAP 5-325 [[place] 1 each PO Q6HR PRN 08/15/20 08/15/20 Unknown History 5/325] Linagliptin [Tradjenta] 5 mg PO QDAY 08/15/20 08/15/20 Unknown History Omeprazole 40 mg PO DAILY 08/15/20 08/15/20 Unknown History Potassium Chloride [K-Dur] 20 meq PO BID 08/15/20 08/15/20 Unknown History Valsartan [Diovan] 160 mg PO QDAY 08/15/20 08/15/20 Unknown History allopurinoL [Zyloprim] 200 mg PO DAILY 08/15/20 08/15/20 Unknown History carvediloL [Coreg] 3.125 mg PO BID 08/15/20 08/15/20 Unknown History Albuterol Sulfate [Proair 90 mcg INHALATION Q4H PRN 08/17/20 08/17/20 Unknown History Digihaler] Spiriva 2.5 mcg INHALATION DAILY 08/17/20 08/17/20 Unknown History Symbicort 160-4.5 Mcg Inhaler 160 mcg INHALATION BID 08/17/20 08/17/20 Unknown History Active Medications: Generic Name Dose Route Start Last Admin Trade Name Freq PRN Reason Stop Dose Admin Acetaminophen 650 mg 08/15/20 22:16 08/19/20 01:17 Acetaminophen 325 Mg Tab PO 650 mg Q4H PRN Administration Pain MILD(1-3)/Fever >100.5/TELLO Hydrocodone Bitart/Acetaminophen 1 each 08/15/20 22:06 08/23/20 17:22 Hydrocodone/Acetaminophen 5-325 Mg Tab PO 1 each Q6HR PRN Administration Pain, Moderate (4-6) Albuterol 2.5 mg 08/17/20 19:26 08/26/20 09:01 Albuterol 2.5 Mg/3 Ml Nebu IH 2.5 mg Q6HRT SYLVAIN Administration Apixaban 5 mg 08/24/20 11:00 08/26/20 10:53 Apixaban 5 Mg Tab PO 5 mg Q12HR SYLVAIN Administration Protocol Ascorbic Acid 1,000 mg 08/15/20 23:00 08/26/20 10:53 Ascorbic Acid 500 Mg Tab PO 1,000 mg BID SYLVAIN Administration Benzonatate 100 mg 08/25/20 14:00 08/26/20 14:25 Benzonatate 100 Mg Cap PO 100 mg Q8HR SYLVAIN Administration Calcitriol 0.25 mcg 08/18/20 10:00 08/26/20 10:53 Calcitriol 0.25 Mcg Cap PO 0.25 mcg QDAY SYLVAIN Administration Dexamethasone 6 mg 08/26/20 15:00 08/26/20 14:25 Dexamethasone 4 Mg/Ml Vial IV 08/31/20 14:59 6 mg DAILY SYLVAIN Administration Ezetimibe 10 mg 08/16/20 10:00 08/26/20 10:53 Ezetimibe 10 Mg Tab PO 10 mg DAILY SYLVAIN Administration Hydromorphone HCl 0.5 mg 08/15/20 22:16 Hydromorphone 1 Mg/1 Ml Inj IV Q3H PRN Pain , Severe (7-10) Sodium Chloride 100 mls @ 999 mls/hr 08/24/20 08:20 Nacl 0.9% IV SARAI PRN Hypotension Insulin Glargine 35 units 08/26/20 08:30 08/26/20 08:35 Insulin Glargine 100 Units/Ml SUB-Q 35 units BID SYLVAIN Administration Insulin Human Lispro 0 unit 08/18/20 13:23 08/26/20 16:41 Insulin Lispro 100 Unit/Ml SUB-Q 3 unit ACHS SYLVAIN Administration Protocol Linagliptin 5 mg 08/16/20 10:00 08/26/20 10:54 Linagliptin 5 Mg Tab PO 5 mg QDAY SYLVAIN Administration Metoclopramide HCl 5 mg 08/15/20 22:37 Metoclopramide 10 Mg/2 Ml Inj IV Q6H PRN Nausea And Vomiting Multivit/Ca Carb/B Cmplx/FA/Prenat 1 cap 08/18/20 10:00 08/26/20 10:53 Folic Acid/Vit B Comp W-C 1 Mg (Renal Caps) PO 1 cap DAILY SYLVAIN Administration Nystatin 400,000 unit 08/26/20 18:24 Nystatin 500,000 Unit/5 Ml Oral Liqd PO TID [facility] Ondansetron HCl 4 mg 08/15/20 22:16 Ondansetron 4 Mg/2 Ml Inj IV Q8H PRN Nausea And Vomiting Oxycodone/Acetaminophen 1 tab 08/15/20 22:16 08/18/20 09:58 Oxycodone /Acetaminophen 5-325mg Tab PO 1 tab Q6H PRN Administration Pain, Moderate (4-6) Pantoprazole Sodium 40 mg 08/16/20 10:00 08/26/20 10:53 Pantoprazole 40 Mg Tab PO 40 mg DAILY SYLVAIN Administration Pravastatin Sodium 40 mg 08/16/20 10:00 08/26/20 10:53 Pravastatin 40 Mg Tab PO 40 mg DAILY SYLVAIN Administration Pseudoephedrine/Acetam/Chlorphenir 10 ml 08/18/20 10:30 08/23/20 17:21 Guaifenesin/Codeine 100-10mg Oral Liqd 5 Ml PO 10 ml Q4H PRN Administration Cough Sodium Chloride 10 ml 08/15/20 23:00 08/26/20 10:54 Sodium Chloride 0.9% 10 Ml Flush Syringe IV 10 ml BID SYLVAIN Administration Sodium Chloride 10 ml 08/15/20 22:16 Sodium Chloride 0.9% 10 Ml Flush Syringe IV PRN PRN LINE FLUSH Zinc Sulfate 220 mg 08/15/20 23:00 08/26/20 10:53 Zinc Sulfate 220 Mg Cap PO 220 mg BID SYLVAIN Administration
[2020-08-27] MEDS ORDERED: ALBUTEROL 2.5 MG/3 ML NEBU IH PRN (00:38)
[2020-08-27] MEDS: BENZONATATE 100 MG CAP PO SCH ×3 (05:48→21:44)
[2020-08-27 07:03] LABS: Calcium 8.8 mg/dL (8.4-10.2)
[2020-08-27] MEDS: INSULIN LISPRO 100 UNIT/ML SUB-Q SCH ×4 (07:30→23:31)
[2020-08-27] MEDS ORDERED: DEXTROSE 50% IN WATER (25GM) 50 ML SYRINGE IV ONE (07:41)
[2020-08-27] MEDS: NYSTATIN 500,000 UNIT/5 ML ORAL LIQD PO SCH ×3 (08:00→19:52)
[2020-08-27] MEDS ORDERED: DEXTROSE 50% IN WATER (25GM) 50 ML SYRINGE IV PRN (08:08)
--- NOTE | 2020-08-27 09:26 | Progress Note ---
Assessment and Plan Assessment and plan: #Acute hypoxic respiratory failure Secondary to Covid pneumonia Continue oxygen supplementation-on high flow 30 L FiO2 70% #COVID-19 pneumonia Status post azithromycin and ceftriaxone Not a candidate for remdesivir due to impaired renal function Continue dexamethasone Incentive spirometer Prone positioning as tolerated Pulmonology following ID on board #ANGELIQUE on CKD now on hemodialysis Likely ATN Tolerating hemodialysis Continue hemodialysis as scheduled Nephrology on board #Elevated D-dimer Ultrasound lower extremity Doppler negative Unable to obtain CTA chest due to allergies Continue apixaban 5 mg twice a day #HARPER, COPD States that she uses BiPAP at home BiPAP QHS #Diabetes mellitus Lantus and lispro Tradjenta #Hyperlipidemia Continue statins #Hypertension Continue medication # Oral thrush Nystatin #COPD Stable DVT/GI prophylaxis: SCDs to BLE while in bed, PPI, Eliquis twice daily Disposition: TTF History Interval history: This is a 64-year-old female with hypertension, diabetes, COPD, CVA, gout, hyperlipidemia who presented to the emergency department on 08/15 for a productive cough, wheezing, headache, subjective fevers scratchy throat ongoing for 4 weeks since 07/21/2020 s/p Z-Bipin and steroids who was COVID-19 positive prior to a dmission. Pulmonology, infectious disease, nephrology were consulted. 08/27. On HFNC - 30 L 705 FiO2. She has HARPER and uses BIPAP at home. BIPAP at bedside. Complains of pain with swallowing. Ordered nystatin. 08/26. On HFNC - 30 L 705 FiO2. She has HARPER and uses BIPAP at home. Will place order for BIPAP 08/25. On high flow nasal cannula 30 L, FiO2 90%. Started empirically on Eliquis 5 mg twice daily for possible PE. She has no complaints this morning. Has some cough. Pulmonology and ID following. Remains on steroids 08/24: Patient remains on HFNC at 40L, 80% FiO2, her ddimer>[id number] and her BLE Doppler US (-) for DVT. Unable to obtain a CTA chest due to allergy to contrast. We will treat Eliquis 5 mg twice daily. Wean supplemental oxygenation as tolerated. Patient will be transferred to the floor today. 08/23: Patient complains of cough, intermittent shortness of breath, received hem odialysis today and remains on high flow nasal cannula at 40 L, 80%. No acute events reported overnight. VQ scan and bilateral lower extremity Doppler ultrasound pending 08/22: High flow nasal cannula, intermittent HD, high-dose steroids 08/21: High flow nasal cannula 08/20:-High flow nasal cannula 08/19:-High flow nasal cannula, PICC line ordered, bicarb 08/18: High flow nasal cannula, transferred to ICU 08/17: Hypoxia,-nasal cannula 08/16: High flow nasal cannula, Vas-Cath placement for intermittent HD, COVID-19 PCR positive Hospitalist Physical - Physical exam Narrative exam: VITAL SIGNS: Reviewed. GENERAL: Awake HEAD: No signs of head trauma. EYES: Pupils are equal. Extraocular motions intact. MOUTH: Oropharynx is normal. NECK: No adenopathy, no JVD. CHEST: Chest with diminished breath sounds bilaterally. No wheezes, rales, or rhonchi. CARDIAC: normal S1 and S2, without murmurs, gallops, or rubs. ABDOMEN: Soft, non tender and non distended. No rebound or guarding, and no masses palpated. Bowel Sounds normal. MUSCULOSKELETAL: No edema NEUROLOGIC EXAM: Alert and oriented x3. No focal neurologic deficits SKIN: No obvious lesions - Constitutional Vitals: Temp Pulse Resp BP Pulse Ox 98.7 F 104 H 18 115/62 94 08/27/20 04:09 08/27/20 04:09 08/27/20 04:09 08/27/20 04:09 08/27/20 04:39 Results - Labs CBC & Chem 7: 08/25/20 08:14 08/27/20 06:13 Labs: Laboratory Last Values WBC 19.0 K/mm3 (4.5-11.0) H 08/25/20 08:14 RBC 3.86 M/mm3 (3.65-5.03) 08/25/20 08:14 Hgb 10.3 gm/dl (10.1-14.3) 08/25/20 08:14 Hct 32.6 % (30.3-42.9) 08/25/20 08:14 MCV 84 fl (79-97) 08/25/20 08:14 MCH 27 pg (28-32) L 08/25/20 08:14 MCHC 32 % (30-34) 08/25/20 08:14 RDW 15.8 % (13.2-15.2) H 08/25/20 08:14 Plt Count 234 K/mm3 (140-440) 08/25/20 08:14 Lymph % (Auto) 5.9 % (13.4-35.0) L 08/18/20 08:36 [place] % (Auto) 6.6 % (0.0-7.3) 08/18/20 08:36 Eos % (Auto) 0.0 % (0.0-4.3) 08/18/20 08:36 Baso % (Auto) 0.2 % (0.0-1.8) 08/18/20 08:36 Lymph # (Auto) 0.5 K/mm3 (1.2-5.4) L 08/18/20 08:36 [place] # (Auto) 0.6 K/mm3 (0.0-0.8) 08/18/20 08:36 Eos # (Auto) 0.0 K/mm3 (0.0-0.4) 08/18/20 08:36 Baso # (Auto) 0.0 K/mm3 (0.0-0.1) 08/18/20 08:36 Add Manual Diff Complete 08/19/20 04:23 Total Counted 100 08/19/20 04:23 Seg Neutrophils % 87.3 % (40.0-70.0) H 08/18/20 08:36 Seg Neuts % (Manual) 84.0 % (40.0-70.0) H 08/19/20 04:23 Band Neutrophils % 3.0 % 08/19/20 04:23 Lymphocytes % (Manual) 9.0 % (13.4-35.0) L 08/19/20 04:23 Monocytes % (Manual) 4.0 % (0.0-7.3) 08/19/20 04:23 Nucleated RBC % Not Reportable 08/19/20 04:23 Seg Neutrophils # 7.4 K/mm3 (1.8-7.7) 08/18/20 08:36 Seg Neutrophils # Man 5.0 K/mm3 (1.8-7.7) 08/19/20 04:23 Band Neutrophils # 0.2 K/mm3 08/19/20 04:23 Lymphocytes # (Manual) 0.5 K/mm3 (1.2-5.4) L 08/19/20 04:23 Abs React Lymphs (Man) 0.0 K/mm3 08/19/20 04:23 Monocytes # (Manual) 0.2 K/mm3 (0.0-0.8) 08/19/20 04:23 Eosinophils # (Manual) 0.0 K/mm3 (0.0-0.4) 08/19/20 04:23 Basophils # (Manual) 0.0 K/mm3 (0.0-0.1) 08/19/20 04:23 Metamyelocytes # 0.0 K/mm3 08/19/20 04:23 Myelocytes # 0.0 K/mm3 08/19/20 04:23 Promyelocytes # 0.0 K/mm3 08/19/20 04:23 Blast Cells # 0.0 K/mm3 08/19/20 04:23 WBC Morphology Not Reportable 08/19/20 04:23 Hypersegmented Neuts Not Reportable 08/19/20 04:23 Hyposegmented Neuts Not Reportable 08/19/20 04:23 Hypogranular Neuts Not Reportable 08/19/20 04:23 Smudge Cells Not Reportable 08/19/20 04:23 Toxic Granulation Not Reportable 08/19/20 04:23 Toxic Vacuolation Not Reportable 08/19/20 04:23 Dohle Bodies Not Reportable 08/19/20 04:23 Pelger-Huet Anomaly Not Reportable 08/19/20 04:23 Shannon Rods Not Reportable 08/19/20 04:23 Platelet Estimate Consistent w auto 08/19/20 04:23 Clumped Platelets Not Reportable 08/19/20 04:23 Plt Clumps, EDTA Not Reportable 08/19/20 04:23 Large Platelets Not Reportable 08/19/20 04:23 Giant Platelets Not Reportable 08/19/20 04:23 Platelet Satelliting Not Reportable 08/19/20 04:23 Plt Morphology Comment Not Reportable 08/19/20 04:23 RBC Morphology Not Reportable 08/19/20 04:23 Dimorphic RBCs Not Reportable 08/19/20 04:23 Polychromasia Not Reportable 08/19/20 04:23 Hypochromasia Not Reportable 08/19/20 04:23 Poikilocytosis 1+ 08/19/20 04:23 Anisocytosis 1+ 08/19/20 04:23 Microcytosis Not Reportable 08/19/20 04:23 Macrocytosis Not Reportable 08/19/20 04:23 Spherocytes Not Reportable 08/19/20 04:23 Pappenheimer Bodies Not Reportable 08/19/20 04:23 Sickle Cells Not Reportable 08/19/20 04:23 Target Cells Not Reportable 08/19/20 04:23 Tear Drop Cells Rare 08/19/20 04:23 Ovalocytes Few 08/19/20 04:23 Helmet Cells Not Reportable 08/19/20 04:23 [place] Bodies Not Reportable 08/19/20 04:23 [place] Rings Not Reportable 08/19/20 04:23 Kimball Cells 1+ 08/19/20 04:23 Bite Cells Not Reportable 08/19/20 04:23 Crenated Cell Not Reportable 08/19/20 04:23 Elliptocytes Few 08/19/20 04:23 Acanthocytes (Spur) Not Reportable 08/19/20 04:23 Rouleaux Not Reportable 08/19/20 04:23 Hemoglobin C Crystals Not Reportable 08/19/20 04:23 Schistocytes Not Reportable 08/19/20 04:23 Malaria parasites Not Reportable 08/19/20 04:23 Mateusz Bodies Not Reportable 08/19/20 04:23 Hem Pathologist Commnt No 08/19/20 04:23 D-Dimer > 62769 ng/mlDDU (0-234) H 08/23/20 14:07 VBG pH 7.389 (7.320-7.420) 08/15/20 17:12 Sodium 143 mmol/L (137-145) 08/27/20 06:13 Potassium 4.1 mmol/L (3.6-5.0) 08/27/20 06:13 Chloride 101.8 mmol/L (98-107) 08/27/20 06:13 Carbon Dioxide 25 mmol/L (22-30) 08/27/20 06:13 Anion Gap 20 mmol/L 08/27/20 06:13 BUN 61 mg/dL (7-17) H 08/27/20 06:13 Creatinine 6.9 mg/dL (0.6-1.2) H 08/27/20 06:13 Estimated GFR 7 ml/min 08/27/20 06:13 BUN/Creatinine Ratio 9 % 08/27/20 06:13 Glucose 52 mg/dL (65-100) L 08/27/20 06:13 POC Glucose 160 mg/dL (70-105) H 08/26/20 22:22 Hemoglobin A1c 7.6 % (4-6) H 08/16/20 04:32 Lactic Acid 1.30 mmol/L (0.7-2.0) 08/15/20 17:01 Calcium 8.8 mg/dL (8.4-10.2) 08/27/20 06:13 Phosphorus 5.90 mg/dL (2.5-4.5) H 08/17/20 09:35 Ferritin 1053.0 ng/mL (10.0-200.0) H 08/23/20 14:07 Total Bilirubin < 0.20 mg/dL (0.1-1.2) 08/19/20 04:23 AST 40 units/L (5-40) 08/19/20 04:23 ALT 13 units/L (7-56) 08/19/20 04:23 Alkaline Phosphatase 58 units/L (35-129) 08/19/20 04:23 Lactate Dehydrogenase 994 units/L (91-180) H 08/23/20 14:07 C-Reactive Protein 0.80 mg/dL (0.00-1.30) 08/23/20 14:07 Total Protein 5.8 g/dL (6.3-8.2) L 08/19/20 04:23 Albumin 2.5 g/dL (3.9-5) L 08/19/20 04:23 Albumin/Globulin Ratio 0.8 % 08/19/20 04:23 Procalcitonin 2.11 ng/mL (<0.15) 08/15/20 17:01 PTH Intact 452.6 pg/mL (15-65) H 08/17/20 09:35 Urine Color Yellow (Yellow) 08/17/20 17:45 Urine Turbidity Turbid (Clear) 08/17/20 17:45 Urine pH 5.0 (5.0-7.0) 08/17/20 17:45 Ur Specific [place] 1.039 (1.003-1.030) H 08/17/20 17:45 Urine Protein >500 mg/dL (Negative) 08/17/20 17:45 Urine Glucose (UA) 50 mg/dL (Negative) 08/17/20 17:45 Urine Ketones Neg mg/dL (Negative) 08/17/20 17:45 Urine Blood Neg (Negative) 08/17/20 17:45 Urine Nitrite Neg (Negative) 08/17/20 17:45 Urine Bilirubin Neg (Negative) 08/17/20 17:45 Urine Urobilinogen < 2.0 mg/dL (<2.0) 08/17/20 17:45 Ur Leukocyte Esterase Neg (Negative) 08/17/20 17:45 Urine WBC (Auto) 32.0 /HPF (0.0-6.0) H 08/17/20 17:45 Urine RBC (Auto) 32.0 /HPF (0.0-6.0) 08/17/20 17:45 U Epithel Cells (Auto) 44.0 /HPF (0-13.0) H 08/17/20 17:45 Urine Bacteria (Auto) 2+ /HPF (Negative) 08/17/20 17:45 Urine Creatinine 248.0 mg/dL (0.1-20.0) H 08/17/20 17:45 Urine Total Protein 196 mg/dL (5-11.8) H 08/17/20 17:45 Coronavirus (PCR) Positive (Negative) A 08/16/20 Unknown Hepatitis A IgM Ab Non-reactive (NonReactive) 08/16/20 21:00 Hep Bs Antigen Non-reactive (Negative) 08/16/20 21:00 Hep B Core IgM Ab Non-reactive (NonReactive) 08/16/20 21:00 Hepatitis C Antibody Non-reactive (NonReactive) 08/16/20 21:00 Odom/IV: Voiding Method External Female Catheter Active Medications - Current Medications Current Medications: Generic Name Dose Route Start Last Admin Trade Name Freq PRN Reason Stop Dose Admin Acetaminophen 650 mg 08/15/20 22:16 08/19/20 01:17 Acetaminophen 325 Mg Tab PO 650 mg Q4H PRN Administration Pain MILD(1-3)/Fever >100.5/TELLO Hydrocodone Bitart/Acetaminophen 1 each 08/15/20 22:06 08/23/20 17:22 Hydrocodone/Acetaminophen 5-325 Mg Tab PO 1 each Q6HR PRN Administration Pain, Moderate (4-6) Albuterol 2.5 mg 08/27/20 00:38 Albuterol 2.5 Mg/3 Ml Nebu IH 09/26/20 00:36 Q6HRT PRN Shortness Of Breath Apixaban 5 mg 08/24/20 11:00 08/26/20 22:42 Apixaban 5 Mg Tab PO 5 mg Q12HR SYLVAIN Administration Protocol Ascorbic Acid 1,000 mg 08/15/20 23:00 08/26/20 22:42 Ascorbic Acid 500 Mg Tab PO 1,000 mg BID SYLVAIN Administration Benzonatate 100 mg 08/25/20 14:00 08/27/20 05:48 Benzonatate 100 Mg Cap PO 100 mg Q8HR SYLVAIN Administration Calcitriol 0.25 mcg 08/18/20 10:00 08/26/20 10:53 Calcitriol 0.25 Mcg Cap PO 0.25 mcg QDAY SYLVAIN Administration Dexamethasone 6 mg 08/26/20 15:00 08/26/20 14:25 Dexamethasone 4 Mg/Ml Vial IV 08/31/20 14:59 6 mg DAILY SYLVAIN Administration Dextrose 25 ml 08/27/20 08:08 Dextrose 50% In Water (25gm) 50 Ml Syringe IV Q30MIN PRN HYPOGLYCEMIA Protocol Ezetimibe 10 mg 08/16/20 10:00 08/26/20 10:53 Ezetimibe 10 Mg Tab PO 10 mg DAILY SYLVAIN Administration Hydromorphone HCl 0.5 mg 08/15/20 22:16 Hydromorphone 1 Mg/1 Ml Inj IV Q3H PRN Pain , Severe (7-10) Sodium Chloride 100 mls @ 999 mls/hr 08/24/20 08:20 Nacl 0.9% IV SARAI PRN Hypotension Insulin Glargine 35 units 08/26/20 08:30 08/26/20 22:42 Insulin Glargine 100 Units/Ml SUB-Q 35 units BID SYLVAIN Administration Insulin Human Lispro 0 unit 08/18/20 13:23 08/26/20 22:44 Insulin Lispro 100 Unit/Ml SUB-Q 3 unit ACHS SYLVAIN Administration Protocol Linagliptin 5 mg 08/16/20 10:00 08/26/20 10:54 Linagliptin 5 Mg Tab PO 5 mg QDAY SYLVAIN Administration Metoclopramide HCl 5 mg 08/15/20 22:37 Metoclopramide 10 Mg/2 Ml Inj IV Q6H PRN Nausea And Vomiting Multivit/Ca Carb/B Cmplx/FA/Prenat 1 cap 08/18/20 10:00 08/26/20 10:53 Folic Acid/Vit B Comp W-C 1 Mg (Renal Caps) PO 1 cap DAILY SYLVAIN Administration Nystatin 400,000 unit 08/26/20 18:24 08/26/20 18:25 Nystatin 500,000 Unit/5 Ml Oral Liqd PO Not Given TID SYLVAIN Ondansetron HCl 4 mg 08/15/20 22:16 Ondansetron 4 Mg/2 Ml Inj IV Q8H PRN Nausea And Vomiting Oxycodone/Acetaminophen 1 tab 08/15/20 22:16 08/18/20 09:58 Oxycodone /Acetaminophen 5-325mg Tab PO 1 tab Q6H PRN Administration Pain, Moderate (4-6) Pantoprazole Sodium 40 mg 08/16/20 10:00 08/26/20 10:53 Pantoprazole 40 Mg Tab PO 40 mg DAILY SYLVAIN Administration Pravastatin Sodium 40 mg 08/16/20 10:00 08/26/20 10:53 Pravastatin 40 Mg Tab PO 40 mg DAILY SYLVAIN Administration Pseudoephedrine/Acetam/Chlorphenir 10 ml 08/18/20 10:30 08/23/20 17:21 Guaifenesin/Codeine 100-10mg Oral Liqd 5 Ml PO 10 ml Q4H PRN Administration Cough Sodium Chloride 10 ml 08/15/20 23:00 08/26/20 22:45 Sodium Chloride 0.9% 10 Ml Flush Syringe IV 10 ml BID SYLVAIN Administration Sodium Chloride 10 ml 08/15/20 22:16 Sodium Chloride 0.9% 10 Ml Flush Syringe IV PRN PRN LINE FLUSH Zinc Sulfate 220 mg 08/15/20 23:00 08/26/20 22:42 Zinc Sulfate 220 Mg Cap PO 220 mg BID SYLVAIN Administration Nutrition/Malnutrition Assess - Dietary Evaluation Nutrition/Malnutrition Findings: Nutrition Notes Start: 08/22/20 12:53 Freq: Status: Active Protocol: Document 08/26/20 09:21 DAEN (Rec: 08/26/20 09:27 DEAN [id number]) Nutrition Notes Initial or Follow up Reassessment Current Diagnosis Acute Kidney Injury,CKD(stage I-IV),COPD,Diabetes, Respiratory Failure Other Pertinent Diagnosis COVID (+), on HD, pneu Current Diet Cardiac, Consistent CHO Labs/Tests BUN 65 Cr 6.5 BG 278 Pertinent Medications Reviewed Height 5 ft 2 in Weight 138.2 kg [place] Body Weight (kg) 50.00 BMI 55.7 Weight Status Morbidly Obese Subjective/Other Information FU for intakes. Pt reports eating 50% of meals and drinking some ONS but unsure how much. Pt reports some trouble swallowing which she states she told the MD this AM . 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 Percent of energy/protein needs met: 60%/37% (excluding ONS) Burn Absent Trauma Absent GI Symptoms None Difficulty In Swallowing Current % PO Fair (50-74%) Minimum of two criteria No physical signs of malnutrition #1 Nutrition Diagnosis Inadequate oral intake As Evidenced by Signs and Symptoms pt eating 50% of meals Diagnosis Progress(for reassessment Worsened documentation) Is patient on ventilator? No Is Patient Ambulatory and/or Out of Bed No REE-([facility]-confined to bed) 2254.980 Kcal/Kg value to use for calculation 12 Approximate Energy Requirements Using 1658 kcal/Kg Calculation Used for Recommendations Kcal/kg Additional Notes Protein: greater than 115g (>1 .2g/kg AdjBW 95.5kg) Fluid: 1000ml or per MD Nutrition Intervention Change Diet Order: Renal, cardiac, consistent CHO Add Supplement/Snack (indicate name/kcal Nepro daily /protein ) Provides kCal: 425 Provides Protein (gm) 19 Goal #1 Meet at least 75% of protein and energy needs via PO and ONS intakes Goal #2 ONS tolerance Anticipated Discharge Needs: Renal/ Consistent CHO diet Follow-Up By: 08/30/20 Additional Comments FU for intakes, [employer] consult, ONS tolerance
[2020-08-27] MEDS: INSULIN GLARGINE 100 UNITS/ML SUB-Q SCH ×2 (09:47→23:30)
[2020-08-27] MEDS: LINAGLIPTIN 5 MG TAB PO SCH (09:48)
[2020-08-27] MEDS: FOLIC ACID/VIT B COMP W-C 1 MG (RENAL CAPS) PO SCH (09:51)
[2020-08-27] MEDS: CALCITRIOL 0.25 MCG CAP PO SCH (09:51)
[2020-08-27] MEDS: PRAVASTATIN 40 MG TAB PO SCH (09:51)
[2020-08-27] MEDS: ZINC SULFATE 220 MG CAP PO SCH ×2 (09:51→21:45)
[2020-08-27] MEDS: EZETIMIBE 10 MG TAB PO SCH (09:51)
[2020-08-27] MEDS: PANTOPRAZOLE 40 MG TAB PO SCH (09:51)
[2020-08-27] MEDS: APIXABAN 5 MG TAB PO SCH ×2 (09:52→21:44)
[2020-08-27] MEDS: ASCORBIC ACID 500 MG TAB PO SCH ×2 (09:52→21:44)
[2020-08-27] MEDS: dexAMETHasone 4 MG/ML VIAL IV SCH (09:52)
--- NOTE | 2020-08-27 11:08 | Progress Note ---
Assessment and Plan 64 y/o female with acute respiratory failure thought secondary to COVID, found to be positive 08/27/20: Continue to wean FiO2 as tolerated. HD per renal. Prone as tolerated. Guarded prognosis. 08/25/20: Empirically started on anticoags, monitor renal function and coags and hgb. LAst day of steroids, however may need to extend out if oxygen requirement doesn't improve with continued HD and volume removal. Encourage to prone or so me variation of this. Guarded prognosis. 08/24/20: Markers remain elevated. IMS concerned about clot. dopplers negative so they have cleared with renal for CTA. Oxygenation not worse and I am not sure how aggressive weaning has been. Will attempt to do better today. HD per renal. Continue high dose steroids. Guarded prognosis. 08/23/20: Agree with HD again today. Wean FiO2 for sats >88% and patient comfort. Continue steroids at current dosing. Lantus for sugars. Will observe on HD again today. If anything, and a bed is needed, can transfer to step down. 08/22/20: HD per renal. Patient has questions about why she is requiring HD, please address with her if possible. Hopeful she will have several HD sessions back to back as I feel a lot of her most recent decline is from volume. COntinue High dose steroids but will extend out to 10 days. Increase lantus to help with sugars. Can likely be transferred to step down or back to the floor. 08/19/20: Ordered PICC line for use during HD if patient requires vasopressors. Most likely increase in oxygen secondary to volume from lack of appropriate HD secondary to hypotension. Will give a couple amps of bicarb to see if this will help with blood pressure and can wills off pressor use. Continue steroids. Agree with ID on increasing the dose. Guarded prognosis 08/18/20: Prone as tolerated during day and sleep prone at night. Continue supplemental O2. Steroids for 10 days. Hold on nebs. Needs RT consult for documentation of oxygen therapy and requirements. 08/17/20: Found to be positive. Same recs as yesterday. Likely not a candidate for remdesivir given renal function. No nebulizer therapy, only inhaler therapy if and when needed. Continue supplemental O2 and proning is mcknight. Guarded prognosis given renal failure. 1. Follow up covid testing 2. Ok with current steroids 3. If patient brought in home inhalers, please allow pharmacy to verify and use them, no neb treatments 4. Prone during the day and and sleep prone at night as tolerated. Guarded prognosis. Subjective Date of service: 08/27/20 Principal diagnosis: Acute respiratory failure with hypoxia, ANGELIQUE superimposed onCKD, Covid pneum Interval history: No acute events. Down to 30 and 70. Sats in the mid 90's. Objective Vital Signs - 12hr 08/27/20 08/27/20 04:09 04:39 Temperature 98.7 F Pulse Rate 104 H Respiratory 18 Rate Blood Pressure 115/62 O2 Sat by Pulse 100 94 Oximetry Constitutional: alert, other (obese, critically ill on ventilator) Eyes: non-icteric ENT: oropharynx moist Neck: supple Effort: normal Ascultation: Bilateral: diminished breath sounds Cardiovascular: regular rate and rhythm (no mrg) Gastrointestinal: normoactive bowel sounds, soft, non-tender, non-distended Integumentary: normal Extremities: no cyanosis, no edema Neurologic: normal mental status, non-focal exam Psychiatric: mood appropriate, affect normal CBC and BMP: 08/25/20 08:14 08/27/20 06:13 ABG, PT/INR, D-dimer: PT/INR, D-dimer D-Dimer > 37602 ng/mlDDU (0-234) H 08/23/20 14:07 Abnormal lab findings: Abnormal Labs 08/15/20 08/15/20 08/15/20 17:01 17:01 17:01 WBC RBC Hgb Hct MCH RDW 15.8 H Lymph % (Auto) 7.4 L Lymph # (Auto) 0.7 L Seg Neutrophils % 85.1 H Seg Neuts % (Manual) Lymphocytes % (Manual) Seg Neutrophils # 7.9 H Lymphocytes # (Manual) D-Dimer 1750.12 H Sodium Potassium 5.1 H Chloride 97.1 L Carbon Dioxide BUN 67 H Creatinine 4.8 H Glucose 101 H POC Glucose Hemoglobin A1c Calcium Phosphorus Ferritin AST 53 H Lactate Dehydrogenase C-Reactive Protein Total Protein Albumin 3.4 L PTH Intact Ur Specific [place] Urine WBC (Auto) U Epithel Cells (Auto) Urine Creatinine Urine Total Protein Coronavirus (PCR) 08/15/20 08/15/20 08/15/20 17:01 17:01 17:01 WBC RBC Hgb Hct MCH RDW Lymph % (Auto) Lymph # (Auto) Seg Neutrophils % Seg Neuts % (Manual) Lymphocytes % (Manual) Seg Neutrophils # Lymphocytes # (Manual) D-Dimer Sodium Potassium Chloride Carbon Dioxide BUN Creatinine Glucose 101 H POC Glucose Hemoglobin A1c Calcium Phosphorus Ferritin 667.2 H AST Lactate Dehydrogenase 606 H 567 H C-Reactive Protein 4.60 H 6.30 H Total Protein Albumin PTH Intact Ur Specific [place] Urine WBC (Auto) U Epithel Cells (Auto) Urine Creatinine Urine Total Protein Coronavirus (PCR) 08/16/20 08/16/20 08/16/20 04:32 04:32 04:32 WBC RBC Hgb Hct MCH 27 L RDW 15.9 H Lymph % (Auto) 12.6 L Lymph # (Auto) 0.8 L Seg Neutrophils % 83.7 H Seg Neuts % (Manual) Lymphocytes % (Manual) Seg Neutrophils # Lymphocytes # (Manual) D-Dimer Sodium 136 L Potassium 6.7 H* D Chloride Carbon Dioxide BUN 78 H Creatinine 6.2 H Glucose 223 H POC Glucose Hemoglobin A1c 7.6 H Calcium 7.8 L Phosphorus Ferritin AST 47 H Lactate Dehydrogenase C-Reactive Protein Total Protein 5.8 L D Albumin 3.1 L PTH Intact Ur Specific [place] Urine WBC (Auto) U Epithel Cells (Auto) Urine Creatinine Urine Total Protein Coronavirus (PCR) 08/16/20 08/16/20 08/16/20 17:01 17:05 21:41 WBC RBC Hgb Hct MCH RDW Lymph % (Auto) Lymph # (Auto) Seg Neutrophils % Seg Neuts % (Manual) Lymphocytes % (Manual) Seg Neutrophils # Lymphocytes # (Manual) D-Dimer Sodium Potassium Chloride Carbon Dioxide BUN 93 H Creatinine 7.7 H Glucose 228 H POC Glucose 150 H 204 H Hemoglobin A1c Calcium Phosphorus Ferritin AST Lactate Dehydrogenase C-Reactive Protein Total Protein Albumin PTH Intact Ur Specific [place] Urine WBC (Auto) U Epithel Cells (Auto) Urine Creatinine Urine Total Protein Coronavirus (PCR) 08/16/20 08/17/20 08/17/20 Unknown 07:31 07:31 WBC RBC Hgb Hct MCH 27 L RDW 16.0 H Lymph % (Auto) 4.2 L Lymph # (Auto) 0.4 L Seg Neutrophils % 90.0 H Seg Neuts % (Manual) Lymphocytes % (Manual) Seg Neutrophils # 8.8 H Lymphocytes # (Manual) D-Dimer Sodium Potassium 5.8 H D Chloride Carbon Dioxide 20 L BUN 103 H Creatinine 9.0 H Glucose 219 H POC Glucose Hemoglobin A1c Calcium 7.9 L Phosphorus Ferritin AST Lactate Dehydrogenase C-Reactive Protein Total Protein Albumin PTH Intact Ur Specific [place] Urine WBC (Auto) U Epithel Cells (Auto) Urine Creatinine Urine Total Protein Coronavirus (PCR) Positive A 08/17/20 08/17/20 08/17/20 07:44 09:35 09:35 WBC RBC Hgb Hct MCH RDW Lymph % (Auto) Lymph # (Auto) Seg Neutrophils % Seg Neuts % (Manual) Lymphocytes % (Manual) Seg Neutrophils # Lymphocytes # (Manual) D-Dimer Sodium Potassium Chloride Carbon Dioxide BUN Creatinine Glucose POC Glucose 188 H Hemoglobin A1c Calcium Phosphorus 5.90 H Ferritin AST Lactate Dehydrogenase C-Reactive Protein Total Protein Albumin PTH Intact 452.6 H Ur Specific [place] Urine WBC (Auto) U Epithel Cells (Auto) Urine Creatinine Urine Total Protein Coronavirus (PCR) 08/17/20 08/17/20 08/17/20 11:23 16:38 17:45 WBC RBC Hgb Hct MCH RDW Lymph % (Auto) Lymph # (Auto) Seg Neutrophils % Seg Neuts % (Manual) Lymphocytes % (Manual) Seg Neutrophils # Lymphocytes # (Manual) D-Dimer Sodium Potassium Chloride Carbon Dioxide BUN Creatinine Glucose POC Glucose 205 H 212 H Hemoglobin A1c Calcium Phosphorus Ferritin AST Lactate Dehydrogenase C-Reactive Protein Total Protein Albumin PTH Intact Ur Specific [place] 1.039 H Urine WBC (Auto) 32.0 H U Epithel Cells (Auto) 44.0 H Urine Creatinine Urine Total Protein Coronavirus (PCR) 08/17/20 08/17/20 08/18/20 17:45 21:39 08:00 WBC RBC Hgb Hct MCH RDW Lymph % (Auto) Lymph # (Auto) Seg Neutrophils % Seg Neuts % (Manual) Lymphocytes % (Manual) Seg Neutrophils # Lymphocytes # (Manual) D-Dimer Sodium Potassium Chloride Carbon Dioxide BUN Creatinine Glucose POC Glucose 206 H 229 H Hemoglobin A1c Calcium Phosphorus Ferritin AST Lactate Dehydrogenase C-Reactive Protein Total Protein Albumin PTH Intact Ur Specific [place] Urine WBC (Auto) U Epithel Cells (Auto) Urine Creatinine 248.0 H Urine Total Protein 196 H Coronavirus (PCR) 08/18/20 08/18/20 08/18/20 08:36 08:36 11:00 WBC RBC 3.64 L Hgb 10.0 L Hct MCH RDW 15.8 H Lymph % (Auto) 5.9 L Lymph # (Auto) 0.5 L Seg Neutrophils % 87.3 H Seg Neuts % (Manual) Lymphocytes % (Manual) Seg Neutrophils # Lymphocytes # (Manual) D-Dimer Sodium 135 L D Potassium Chloride 95.8 L Carbon Dioxide 20 L BUN 84 H Creatinine 8.4 H Glucose 262 H POC Glucose 238 H Hemoglobin A1c Calcium 7.5 L Phosphorus Ferritin AST Lactate Dehydrogenase C-Reactive Protein Total Protein 6.1 L Albumin 2.5 L PTH Intact Ur Specific [place] Urine WBC (Auto) U Epithel Cells (Auto) Urine Creatinine Urine Total Protein Coronavirus (PCR) 08/18/20 08/18/20 08/19/20 16:14 21:52 04:23 WBC RBC 3.53 L Hgb 9.5 L Hct 30.0 L MCH 27 L RDW 15.6 H Lymph % (Auto) Lymph # (Auto) Seg Neutrophils % Seg Neuts % (Manual) 84.0 H Lymphocytes % (Manual) 9.0 L Seg Neutrophils # Lymphocytes # (Manual) 0.5 L D-Dimer Sodium Potassium Chloride Carbon Dioxide BUN Creatinine Glucose POC Glucose 248 H 303 H Hemoglobin A1c Calcium Phosphorus Ferritin AST Lactate Dehydrogenase C-Reactive Protein Total Protein Albumin PTH Intact Ur Specific [place] Urine WBC (Auto) U Epithel Cells (Auto) Urine Creatinine Urine Total Protein Coronavirus (PCR) 08/19/20 08/19/20 08/19/20 04:23 06:44 11:53 WBC RBC Hgb Hct MCH RDW Lymph % (Auto) Lymph # (Auto) Seg Neutrophils % Seg Neuts % (Manual) Lymphocytes % (Manual) Seg Neutrophils # Lymphocytes # (Manual) D-Dimer Sodium Potassium Chloride 97.2 L Carbon Dioxide BUN 86 H Creatinine 9.2 H Glucose 271 H POC Glucose 213 H 266 H Hemoglobin A1c Calcium 7.5 L Phosphorus Ferritin AST Lactate Dehydrogenase C-Reactive Protein Total Protein 5.8 L Albumin 2.5 L PTH Intact Ur Specific [place] Urine WBC (Auto) U Epithel Cells (Auto) Urine Creatinine Urine Total Protein Coronavirus (PCR) 08/19/20 08/19/20 08/19/20 16:58 16:58 16:58 WBC RBC Hgb Hct MCH RDW Lymph % (Auto) Lymph # (Auto) Seg Neutrophils % Seg Neuts % (Manual) Lymphocytes % (Manual) Seg Neutrophils # Lymphocytes # (Manual) D-Dimer > 42426 H Sodium Potassium Chloride Carbon Dioxide BUN Creatinine Glucose POC Glucose Hemoglobin A1c Calcium Phosphorus Ferritin 1043.0 H AST Lactate Dehydrogenase 721 H C-Reactive Protein 3.00 H Total Protein Albumin PTH Intact Ur Specific [place] Urine WBC (Auto) U Epithel Cells (Auto) Urine Creatinine Urine Total Protein Coronavirus (PCR) 08/19/20 08/19/20 08/20/20 17:18 22:53 06:38 WBC RBC Hgb Hct MCH RDW Lymph % (Auto) Lymph # (Auto) Seg Neutrophils % Seg Neuts % (Manual) Lymphocytes % (Manual) Seg Neutrophils # Lymphocytes # (Manual) D-Dimer Sodium Potassium Chloride Carbon Dioxide BUN Creatinine Glucose POC Glucose 223 H 273 H 268 H Hemoglobin A1c Calcium Phosphorus Ferritin AST Lactate Dehydrogenase C-Reactive Protein Total Protein Albumin PTH Intact Ur Specific [place] Urine WBC (Auto) U Epithel Cells (Auto) Urine Creatinine Urine Total Protein Coronavirus (PCR) 08/20/20 08/20/20 08/20/20 08:21 11:47 15:46 WBC RBC Hgb Hct MCH RDW Lymph % (Auto) Lymph # (Auto) Seg Neutrophils % Seg Neuts % (Manual) Lymphocytes % (Manual) Seg Neutrophils # Lymphocytes # (Manual) D-Dimer Sodium Potassium Chloride Carbon Dioxide BUN Creatinine Glucose POC Glucose 264 H 288 H 262 H Hemoglobin A1c Calcium Phosphorus Ferritin AST Lactate Dehydrogenase C-Reactive Protein Total Protein Albumin PTH Intact Ur Specific [place] Urine WBC (Auto) U Epithel Cells (Auto) Urine Creatinine Urine Total Protein Coronavirus (PCR) 08/20/20 08/21/20 08/21/20 21:33 07:46 11:56 WBC RBC Hgb Hct MCH RDW Lymph % (Auto) Lymph # (Auto) Seg Neutrophils % Seg Neuts % (Manual) Lymphocytes % (Manual) Seg Neutrophils # Lymphocytes # (Manual) D-Dimer Sodium Potassium Chloride Carbon Dioxide BUN Creatinine Glucose POC Glucose 274 H 249 H 227 H Hemoglobin A1c Calcium Phosphorus Ferritin AST Lactate Dehydrogenase C-Reactive Protein Total Protein Albumin PTH Intact Ur Specific [place] Urine WBC (Auto) U Epithel Cells (Auto) Urine Creatinine Urine Total Protein Coronavirus (PCR) 08/21/20 08/21/20 08/22/20 17:19 21:34 08:48 WBC RBC Hgb Hct MCH RDW Lymph % (Auto) Lymph # (Auto) Seg Neutrophils % Seg Neuts % (Manual) Lymphocytes % (Manual) Seg Neutrophils # Lymphocytes # (Manual) D-Dimer Sodium Potassium Chloride Carbon Dioxide BUN Creatinine Glucose POC Glucose 318 H 286 H 257 H Hemoglobin A1c Calcium Phosphorus Ferritin AST Lactate Dehydrogenase C-Reactive Protein Total Protein Albumin PTH Intact Ur Specific [place] Urine WBC (Auto) U Epithel Cells (Auto) Urine Creatinine Urine Total Protein Coronavirus (PCR) 08/22/20 08/22/20 08/22/20 12:34 17:41 21:22 WBC RBC Hgb Hct MCH RDW Lymph % (Auto) Lymph # (Auto) Seg Neutrophils % Seg Neuts % (Manual) Lymphocytes % (Manual) Seg Neutrophils # Lymphocytes # (Manual) D-Dimer Sodium Potassium Chloride Carbon Dioxide BUN Creatinine Glucose POC Glucose 324 H 283 H 308 H Hemoglobin A1c Calcium Phosphorus Ferritin AST Lactate Dehydrogenase C-Reactive Protein Total Protein Albumin PTH Intact Ur Specific [place] Urine WBC (Auto) U Epithel Cells (Auto) Urine Creatinine Urine Total Protein Coronavirus (PCR) 08/23/20 08/23/20 08/23/20 05:24 05:47 05:47 WBC 13.7 H RBC Hgb 9.9 L Hct MCH 27 L RDW Lymph % (Auto) Lymph # (Auto) Seg Neutrophils % Seg Neuts % (Manual) Lymphocytes % (Manual) Seg Neutrophils # Lymphocytes # (Manual) D-Dimer Sodium 133 L Potassium Chloride 90.4 L Carbon Dioxide BUN 103 H Creatinine 9.5 H Glucose 346 H POC Glucose 297 H Hemoglobin A1c Calcium 7.9 L Phosphorus Ferritin AST Lactate Dehydrogenase C-Reactive Protein Total Protein Albumin PTH Intact Ur Specific [place] Urine WBC (Auto) U Epithel Cells (Auto) Urine Creatinine Urine Total Protein Coronavirus (PCR) 08/23/20 08/23/20 08/23/20 07:34 10:58 14:07 WBC RBC Hgb Hct MCH RDW Lymph % (Auto) Lymph # (Auto) Seg Neutrophils % Seg Neuts % (Manual) Lymphocytes % (Manual) Seg Neutrophils # Lymphocytes # (Manual) D-Dimer > 68218 H Sodium Potassium Chloride Carbon Dioxide BUN Creatinine Glucose POC Glucose 276 H 334 H Hemoglobin A1c Calcium Phosphorus Ferritin AST Lactate Dehydrogenase C-Reactive Protein Total Protein Albumin PTH Intact Ur Specific [place] Urine WBC (Auto) U Epithel Cells (Auto) Urine Creatinine Urine Total Protein Coronavirus (PCR) 08/23/20 08/23/20 08/23/20 14:07 14:07 15:54 WBC RBC Hgb Hct MCH RDW Lymph % (Auto) Lymph # (Auto) Seg Neutrophils % Seg Neuts % (Manual) Lymphocytes % (Manual) Seg Neutrophils # Lymphocytes # (Manual) D-Dimer Sodium Potassium Chloride Carbon Dioxide BUN Creatinine Glucose POC Glucose 248 H Hemoglobin A1c Calcium Phosphorus Ferritin 1053.0 H AST Lactate Dehydrogenase 994 H C-Reactive Protein Total Protein Albumin PTH Intact Ur Specific [place] Urine WBC (Auto) U Epithel Cells (Auto) Urine Creatinine Urine Total Protein Coronavirus (PCR) 08/23/20 08/24/20 08/24/20 21:18 06:06 06:06 WBC 17.9 H RBC Hgb 10.0 L Hct MCH 26 L RDW Lymph % (Auto) Lymph # (Auto) Seg Neutrophils % Seg Neuts % (Manual) Lymphocytes % (Manual) Seg Neutrophils # Lymphocytes # (Manual) D-Dimer Sodium Potassium 5.2 H Chloride 94.8 L Carbon Dioxide BUN 79 H Creatinine 7.9 H Glucose 230 H POC Glucose 206 H Hemoglobin A1c Calcium 8.3 L Phosphorus Ferritin AST Lactate Dehydrogenase C-Reactive Protein Total Protein Albumin PTH Intact Ur Specific [place] Urine WBC (Auto) U Epithel Cells (Auto) Urine Creatinine Urine Total Protein Coronavirus (PCR) 08/24/20 08/24/20 08/24/20 07:44 11:31 15:51 WBC RBC Hgb Hct MCH RDW Lymph % (Auto) Lymph # (Auto) Seg Neutrophils % Seg Neuts % (Manual) Lymphocytes % (Manual) Seg Neutrophils # Lymphocytes # (Manual) D-Dimer Sodium Potassium Chloride Carbon Dioxide BUN Creatinine Glucose POC Glucose 199 H 307 H 325 H Hemoglobin A1c Calcium Phosphorus Ferritin AST Lactate Dehydrogenase C-Reactive Protein Total Protein Albumin PTH Intact Ur Specific [place] Urine WBC (Auto) U Epithel Cells (Auto) Urine Creatinine Urine Total Protein Coronavirus (PCR) 08/24/20 08/25/20 08/25/20 21:43 08:08 08:14 WBC RBC Hgb Hct MCH RDW Lymph % (Auto) Lymph # (Auto) Seg Neutrophils % Seg Neuts % (Manual) Lymphocytes % (Manual) Seg Neutrophils # Lymphocytes # (Manual) D-Dimer Sodium Potassium Chloride Carbon Dioxide BUN 65 H Creatinine 6.6 H Glucose 278 H POC Glucose 227 H 253 H Hemoglobin A1c Calcium Phosphorus Ferritin AST Lactate Dehydrogenase C-Reactive Protein Total Protein Albumin PTH Intact Ur Specific [place] Urine WBC (Auto) U Epithel Cells (Auto) Urine Creatinine Urine Total Protein Coronavirus (PCR) 08/25/20 08/25/20 08/25/20 08:14 10:53 16:18 WBC 19.0 H RBC Hgb Hct MCH 27 L RDW 15.8 H Lymph % (Auto) Lymph # (Auto) Seg Neutrophils % Seg Neuts % (Manual) Lymphocytes % (Manual) Seg Neutrophils # Lymphocytes # (Manual) D-Dimer Sodium Potassium Chloride Carbon Dioxide BUN Creatinine Glucose POC Glucose 332 H 329 H Hemoglobin A1c Calcium Phosphorus Ferritin AST Lactate Dehydrogenase C-Reactive Protein Total Protein Albumin PTH Intact Ur Specific [place] Urine WBC (Auto) U Epithel Cells (Auto) Urine Creatinine Urine Total Protein Coronavirus (PCR) 08/25/20 08/26/20 08/26/20 21:52 01:10 08:21 WBC RBC Hgb Hct MCH RDW Lymph % (Auto) Lymph # (Auto) Seg Neutrophils % Seg Neuts % (Manual) Lymphocytes % (Manual) Seg Neutrophils # Lymphocytes # (Manual) D-Dimer Sodium Potassium Chloride Carbon Dioxide BUN Creatinine Glucose POC Glucose 311 H 426 H 182 H Hemoglobin A1c Calcium Phosphorus Ferritin AST Lactate Dehydrogenase C-Reactive Protein Total Protein Albumin PTH Intact Ur Specific [place] Urine WBC (Auto) U Epithel Cells (Auto) Urine Creatinine Urine Total Protein Coronavirus (PCR) 08/26/20 08/26/20 08/26/20 10:38 11:05 16:36 WBC RBC Hgb Hct MCH RDW Lymph % (Auto) Lymph # (Auto) Seg Neutrophils % Seg Neuts % (Manual) Lymphocytes % (Manual) Seg Neutrophils # Lymphocytes # (Manual) D-Dimer Sodium Potassium Chloride 95.5 L Carbon Dioxide BUN 95 H Creatinine 8.9 H Glucose 216 H POC Glucose 191 H 173 H Hemoglobin A1c Calcium Phosphorus Ferritin AST Lactate Dehydrogenase C-Reactive Protein Total Protein Albumin PTH Intact Ur Specific [place] Urine WBC (Auto) U Epithel Cells (Auto) Urine Creatinine Urine Total Protein Coronavirus (PCR) 08/26/20 08/27/20 22:22 06:13 WBC RBC Hgb Hct MCH RDW Lymph % (Auto) Lymph # (Auto) Seg Neutrophils % Seg Neuts % (Manual) Lymphocytes % (Manual) Seg Neutrophils # Lymphocytes # (Manual) D-Dimer Sodium Potassium Chloride Carbon Dioxide BUN 61 H Creatinine 6.9 H Glucose 52 L POC Glucose 160 H Hemoglobin A1c Calcium Phosphorus Ferritin AST Lactate Dehydrogenase C-Reactive Protein Total Protein Albumin PTH Intact Ur Specific [place] Urine WBC (Auto) U Epithel Cells (Auto) Urine Creatinine Urine Total Protein Coronavirus (PCR)
--- NOTE | 2020-08-27 20:09 | Progress Note ---
Assessment and Plan Assessment and plan #Acute kidney injury: s/p hemodialysis daily x 3. S/p HD yesterday, repeat today. Assess daily for need of additional sessions #Has underlying chronic kidney disease her baseline creatinine is around 1.7-[address] Rivers's office #Respiratory failure resulting from Covid 19 pneumonia + fluid overload- being followed by pulmonary service. UF with HD as tolerated. S/p 2 L removed daily x 3d. Continue UF 2-3 L with iHD. Limit fluid intake to 1L/d #Covid 19 viral pneumonia with ARDS like picture, patient has multiorgan failure, she will need ongoing renal replacement therapy as tolerated for now. Monitor labs and I/O daily. # Keep MAP> 65 # Renally dose medications # Renal diet Subjective Date of service: 08/27/20 Principal diagnosis: Acute respiratory failure with hypoxia, ANGELIQUE superimposed onCKD, Covid pneum Interval history: On high flow Notes soem UOP Patient was seen for her renal issues Nursing, interdisciplinary and consult notes were reviewed Vitals, input and output, medications and labs were reviewed Objective - Exam Narrative Exam: General: No acute distress Neck: Supple, no JVD Extremity: No peripheral cyanosis, edema Neurological: Alert, awake, no asterixis Dermatology: No skin rash Psych: No agitation Musculoskeletal: No joint effusion - Vital Signs Vital signs: Vital Signs - 12hr 08/27/20 08/27/20 08/27/20 10:25 11:10 11:44 Temperature 97.7 F Pulse Rate 103 H Respiratory 20 Rate Blood Pressure 103/62 O2 Sat by Pulse 96 94 96 Oximetry O2 Sat by Pulse Oximetry [ Anterior Bilateral Throughout] 08/27/20 08/27/20 08/27/20 15:40 15:45 16:00 Temperature 97.8 F Pulse Rate 101 H 102 H 109 H Respiratory 20 Rate Blood Pressure 116/55 124/60 124/67 O2 Sat by Pulse Oximetry O2 Sat by Pulse 97 Oximetry [ Anterior Bilateral Throughout] 08/27/20 08/27/20 08/27/20 16:15 16:25 16:30 Temperature Pulse Rate 116 H 120 H Respiratory Rate Blood Pressure 136/60 129/70 O2 Sat by Pulse 93 Oximetry O2 Sat by Pulse Oximetry [ Anterior Bilateral Throughout] 08/27/20 08/27/20 08/27/20 16:45 17:00 17:15 Temperature Pulse Rate 115 H 116 H 111 H Respiratory Rate Blood Pressure 121/65 120/57 116/64 O2 Sat by Pulse Oximetry O2 Sat by Pulse Oximetry [ Anterior Bilateral Throughout] 08/27/20 08/27/20 08/27/20 17:30 17:45 18:00 Temperature Pulse Rate 112 H 111 H 116 H Respiratory Rate Blood Pressure 115/61 118/63 120/65 O2 Sat by Pulse Oximetry O2 Sat by Pulse Oximetry [ Anterior Bilateral Throughout] 08/27/20 08/27/20 08/27/20 18:15 18:30 18:45 Temperature Pulse Rate 112 H 112 H 122 H Respiratory Rate Blood Pressure 115/60 105/61 113/48 O2 Sat by Pulse Oximetry O2 Sat by Pulse Oximetry [ Anterior Bilateral Throughout] 08/27/20 08/27/20 08/27/20 19:00 19:15 19:36 Temperature 98.9 F Pulse Rate 122 H 108 H 102 H Respiratory 20 Rate Blood Pressure 113/48 128/68 132/72 O2 Sat by Pulse Oximetry O2 Sat by Pulse 98 Oximetry [ Anterior Bilateral Throughout] - Lab 08/25/20 08:14 08/27/20 06:13 Most recent lab results Calcium 8.8 mg/dL (8.4-10.2) 08/27/20 06:13 Phosphorus 5.90 mg/dL (2.5-4.5) H 08/17/20 09:35 Urine Creatinine 248.0 mg/dL (0.1-20.0) H 08/17/20 17:45 Urine Total Protein 196 mg/dL (5-11.8) H 08/17/20 17:45 Medications & Allergies - Medications Allergies/Adverse Reactions: Allergies gabapentin [From Neurontin] Allergy (Verified 08/15/20 17:25) Unknown rosuvastatin calcium [From Crestor] Allergy (Verified 08/15/20 17:25) Rash fluticasone propionate [From Advair Diskus] Adverse Reaction (Verified 08/15/20 17:25) Headache salmeterol xinafoate [From Advair Diskus] Adverse Reaction (Verified 08/15/20 17:25) Headache IV DYE Allergy (Uncoded 08/24/20 10:28) Itching Home Medications: Home Medications Medication Instructions Recorded Confirmed Last Taken Type Colchicine [Colcrys] 0.6 mg PO DAILY 08/15/20 08/15/20 Unknown History Cyanocobalamin (Vitamin B-12) 1,000 mcg IJ QMONTH 08/15/20 08/15/20 Unknown History [Physicians Ez Use B-12] Ergocalciferol [Vitamin D2] 1 cap PO QWEEK 08/15/20 08/15/20 Unknown History Ezetimibe/Simvastatin 1 each PO DAILY 08/15/20 08/15/20 Unknown History [Ezetimibe-Simvastatin 10-20 mg] Famotidine [Pepcid] 40 mg PO DAILY 08/15/20 08/15/20 Unknown History Furosemide [Lasix] 40 mg PO BID 08/15/20 08/15/20 Unknown History HYDROcodone/APAP 5-325 [[place] 1 each PO Q6HR PRN 08/15/20 08/15/20 Unknown History 5/325] Linagliptin [Tradjenta] 5 mg PO QDAY 08/15/20 08/15/20 Unknown History Omeprazole 40 mg PO DAILY 08/15/20 08/15/20 Unknown History Potassium Chloride [K-Dur] 20 meq PO BID 08/15/20 08/15/20 Unknown History Valsartan [Diovan] 160 mg PO QDAY 08/15/20 08/15/20 Unknown History allopurinoL [Zyloprim] 200 mg PO DAILY 08/15/20 08/15/20 Unknown History carvediloL [Coreg] 3.125 mg PO BID 08/15/20 08/15/20 Unknown History Albuterol Sulfate [Proair 90 mcg INHALATION Q4H PRN 08/17/20 08/17/20 Unknown History Digihaler] Spiriva 2.5 mcg INHALATION DAILY 08/17/20 08/17/20 Unknown History Symbicort 160-4.5 Mcg Inhaler 160 mcg INHALATION BID 08/17/20 08/17/20 Unknown History Active Medications: Generic Name Dose Route Start Last Admin Trade Name Freq PRN Reason Stop Dose Admin Acetaminophen 650 mg 08/15/20 22:16 08/19/20 01:17 Acetaminophen 325 Mg Tab PO 650 mg Q4H PRN Administration Pain MILD(1-3)/Fever >100.5/TELLO Hydrocodone Bitart/Acetaminophen 1 each 08/15/20 22:06 08/23/20 17:22 Hydrocodone/Acetaminophen 5-325 Mg Tab PO 1 each Q6HR PRN Administration Pain, Moderate (4-6) Albuterol 2.5 mg 08/27/20 00:38 Albuterol 2.5 Mg/3 Ml Nebu IH 09/26/20 00:36 Q6HRT PRN Shortness Of Breath Apixaban 5 mg 08/24/20 11:00 08/27/20 09:52 Apixaban 5 Mg Tab PO 5 mg Q12HR SYLVAIN Administration Protocol Ascorbic Acid 1,000 mg 08/15/20 23:00 08/27/20 09:52 Ascorbic Acid 500 Mg Tab PO 1,000 mg BID SYLVAIN Administration Benzonatate 100 mg 08/25/20 14:00 08/27/20 13:23 Benzonatate 100 Mg Cap PO 100 mg Q8HR SYLVAIN Administration Calcitriol 0.25 mcg 08/18/20 10:00 08/27/20 09:51 Calcitriol 0.25 Mcg Cap PO 0.25 mcg QDAY SYLVAIN Administration Dexamethasone 6 mg 08/26/20 15:00 08/27/20 09:52 Dexamethasone 4 Mg/Ml Vial IV 08/31/20 14:59 6 mg DAILY SYLVAIN Administration Dextrose 25 ml 08/27/20 08:08 Dextrose 50% In Water (25gm) 50 Ml Syringe IV Q30MIN PRN HYPOGLYCEMIA Protocol Ezetimibe 10 mg 08/16/20 10:00 08/27/20 09:51 Ezetimibe 10 Mg Tab PO 10 mg DAILY SYLVAIN Administration Hydromorphone HCl 0.5 mg 08/15/20 22:16 Hydromorphone 1 Mg/1 Ml Inj IV Q3H PRN Pain , Severe (7-10) Sodium Chloride 100 mls @ 999 mls/hr 08/24/20 08:20 Nacl 0.9% IV SARAI PRN Hypotension Insulin Glargine 35 units 08/26/20 08:30 08/27/20 09:47 Insulin Glargine 100 Units/Ml SUB-Q Not Given BID [facility] Insulin Human Lispro 0 unit 08/18/20 13:23 08/27/20 16:22 Insulin Lispro 100 Unit/Ml SUB-Q 3 unit ACHS SYLVAIN Administration Protocol Linagliptin 5 mg 08/16/20 10:00 08/27/20 09:48 Linagliptin 5 Mg Tab PO Not Given QDAY SYLVAIN Metoclopramide HCl 5 mg 08/15/20 22:37 Metoclopramide 10 Mg/2 Ml Inj IV Q6H PRN Nausea And Vomiting Multivit/Ca Carb/B Cmplx/FA/Prenat 1 cap 08/18/20 10:00 08/27/20 09:51 Folic Acid/Vit B Comp W-C 1 Mg (Renal Caps) PO 1 cap DAILY SYLVAIN Administration Nystatin 400,000 unit 08/26/20 18:24 08/27/20 19:52 Nystatin 500,000 Unit/5 Ml Oral Liqd PO 400,000 unit TID SYLVAIN Administration Ondansetron HCl 4 mg 08/15/20 22:16 Ondansetron 4 Mg/2 Ml Inj IV Q8H PRN Nausea And Vomiting Oxycodone/Acetaminophen 1 tab 08/15/20 22:16 08/18/20 09:58 Oxycodone /Acetaminophen 5-325mg Tab PO 1 tab Q6H PRN Administration Pain, Moderate (4-6) Pantoprazole Sodium 40 mg 08/16/20 10:00 08/27/20 09:51 Pantoprazole 40 Mg Tab PO 40 mg DAILY SYLVAIN Administration Pravastatin Sodium 40 mg 08/16/20 10:00 08/27/20 09:51 Pravastatin 40 Mg Tab PO 40 mg DAILY SYLVAIN Administration Pseudoephedrine/Acetam/Chlorphenir 10 ml 08/18/20 10:30 08/23/20 17:21 Guaifenesin/Codeine 100-10mg Oral Liqd 5 Ml PO 10 ml Q4H PRN Administration Cough Sodium Chloride 10 ml 08/15/20 23:00 08/27/20 09:53 Sodium Chloride 0.9% 10 Ml Flush Syringe IV 10 ml BID SYLVAIN Administration Sodium Chloride 10 ml 08/15/20 22:16 Sodium Chloride 0.9% 10 Ml Flush Syringe IV PRN PRN LINE FLUSH Zinc Sulfate 220 mg 08/15/20 23:00 08/27/20 09:51 Zinc Sulfate 220 Mg Cap PO 220 mg BID SYLVAIN Administration
[2020-08-28] MEDS: BENZONATATE 100 MG CAP PO SCH ×3 (05:41→21:10)
[2020-08-28] MEDS: INSULIN LISPRO 100 UNIT/ML SUB-Q SCH ×4 (07:30→23:14)
[2020-08-28 08:00] LABS: Calcium 7.8 mg/dL (8.4-10.2)
[2020-08-28] MEDS: NYSTATIN 500,000 UNIT/5 ML ORAL LIQD PO SCH ×3 (08:00→19:52)
[2020-08-28] MEDS: PANTOPRAZOLE 40 MG TAB PO SCH (09:22)
[2020-08-28] MEDS: ASCORBIC ACID 500 MG TAB PO SCH ×2 (09:22→21:11)
[2020-08-28] MEDS: CALCITRIOL 0.25 MCG CAP PO SCH (09:22)
[2020-08-28] MEDS: APIXABAN 5 MG TAB PO SCH ×2 (09:22→21:11)
[2020-08-28] MEDS: ZINC SULFATE 220 MG CAP PO SCH ×2 (09:22→21:10)
[2020-08-28] MEDS: PRAVASTATIN 40 MG TAB PO SCH (09:23)
[2020-08-28] MEDS: FOLIC ACID/VIT B COMP W-C 1 MG (RENAL CAPS) PO SCH (09:23)
[2020-08-28] MEDS: dexAMETHasone 4 MG/ML VIAL IV SCH (09:23)
[2020-08-28] MEDS: EZETIMIBE 10 MG TAB PO SCH (09:23)
[2020-08-28] MEDS: LINAGLIPTIN 5 MG TAB PO SCH (09:23)
[2020-08-28] MEDS: INSULIN GLARGINE 100 UNITS/ML SUB-Q SCH ×2 (09:34→23:14)
--- NOTE | 2020-08-28 10:00 | Progress Note ---
Assessment and Plan Assessment and plan: #Acute hypoxic respiratory failure Secondary to Covid pneumonia Continue oxygen supplementation-on high flow 15 L FiO2 55% #COVID-19 pneumonia Status post azithromycin and ceftriaxone Not a candidate for remdesivir due to impaired renal function Continue dexamethasone Incentive spirometer Prone positioning as tolerated Pulmonology following ID on board #ANGELIQUE on CKD now on hemodialysis Likely ATN Tolerating hemodialysis Continue hemodialysis as scheduled Nephrology on board #Elevated D-dimer Ultrasound lower extremity Doppler negative Unable to obtain CTA chest due to allergies Continue apixaban 5 mg twice a day #HARPER, COPD States that she uses BiPAP at home BiPAP QHS #Diabetes mellitus Lantus and lispro Tradjenta #Hyperlipidemia Continue statins #Hypertension Continue medication # Oral thrush Nystatin #COPD Stable DVT/GI prophylaxis: SCDs to BLE while in bed, PPI, Eliquis twice daily Disposition: TTF History Interval history: This is a 64-year-old female with hypertension, diabetes, COPD, CVA, gout, hyperlipidemia who presented to the emergency department on 08/15 for a productive cough, wheezing, headache, subjective fevers scratchy throat ongoing for 4 weeks since 07/21/2020 s/p Z-Bipin and steroids who was COVID-19 positive prior to a dmission. Pulmonology, infectious disease, nephrology were consulted. 08/28. Weaned down to 15 L 55%FiO2. Using incentive spirometer. 08/27. On HFNC - 30 L 705 FiO2. She has HARPER and uses BIPAP at home. BIPAP at bedside. Complains of pain with swallowing. Ordered nystatin. 08/26. On HFNC - 30 L 705 FiO2. She has HARPER and uses BIPAP at home. Will place order for BIPAP 08/25. On high flow nasal cannula 30 L, FiO2 90%. Started empirically on Eliquis 5 mg twice daily for possible PE. She has no complaints this morning. Has some cough. Pulmonology and ID following. Remains on steroids 08/24: Patient remains on HFNC at 40L, 80% FiO2, her ddimer>[id number] and her BLE Doppler US (-) for DVT. Unable to obtain a CTA chest due to allergy to contrast. We will treat Eliquis 5 mg twice daily. Wean supplemental oxygenation as tolerated. Patient will be transferred to the floor today. 08/23: Patient complains of cough, intermittent shortness of breath, received hemodialysis today and remains on high flow nasal cannula at 40 L, 80%. No acute events reported overnight. VQ scan and bilateral lower extremity Doppler ultrasound pending 08/22: High flow nasal cannula, intermittent HD, high-dose steroids 08/21: High flow nasal cannula 08/20:-High flow nasal cannula 08/19:-High flow nasal cannula, PICC line ordered, bicarb 08/18: High flow nasal cannula, transferred to ICU 08/17: Hypoxia,-nasal cannula 08/16: High flow nasal cannula, Vas-Cath placement for intermittent HD, COVID-19 PCR positive Hospitalist Physical - Constitutional Vitals: Temp Pulse Resp BP Pulse Ox 97.9 F 78 18 111/72 98 08/28/20 04:53 08/28/20 04:53 08/28/20 04:53 08/28/20 04:53 08/28/20 04:53 General appearance: Present: no acute distress, well-nourished, obese Results - Labs CBC & Chem 7: 08/25/20 08:14 08/28/20 07:23 Labs: Laboratory Last Values WBC 19.0 K/mm3 (4.5-11.0) H 08/25/20 08:14 RBC 3.86 M/mm3 (3.65-5.03) 08/25/20 08:14 Hgb 10.3 gm/dl (10.1-14.3) 08/25/20 08:14 Hct 32.6 % (30.3-42.9) 08/25/20 08:14 MCV 84 fl (79-97) 08/25/20 08:14 MCH 27 pg (28-32) L 08/25/20 08:14 MCHC 32 % (30-34) 08/25/20 08:14 RDW 15.8 % (13.2-15.2) H 08/25/20 08:14 Plt Count 234 K/mm3 (140-440) 08/25/20 08:14 Lymph % (Auto) 5.9 % (13.4-35.0) L 08/18/20 08:36 [place] % (Auto) 6.6 % (0.0-7.3) 08/18/20 08:36 Eos % (Auto) 0.0 % (0.0-4.3) 08/18/20 08:36 Baso % (Auto) 0.2 % (0.0-1.8) 08/18/20 08:36 Lymph # (Auto) 0.5 K/mm3 (1.2-5.4) L 08/18/20 08:36 [place]ke # (Auto) 0.6 K/mm3 (0.0-0.8) 08/18/20 08:36 Eos # (Auto) 0.0 K/mm3 (0.0-0.4) 08/18/20 08:36 Baso # (Auto) 0.0 K/mm3 (0.0-0.1) 08/18/20 08:36 Add Manual Diff Complete 08/19/20 04:23 Total Counted 100 08/19/20 04:23 Seg Neutrophils % 87.3 % (40.0-70.0) H 08/18/20 08:36 Seg Neuts % (Manual) 84.0 % (40.0-70.0) H 08/19/20 04:23 Band Neutrophils % 3.0 % 08/19/20 04:23 Lymphocytes % (Manual) 9.0 % (13.4-35.0) L 08/19/20 04:23 Monocytes % (Manual) 4.0 % (0.0-7.3) 08/19/20 04:23 Nucleated RBC % Not Reportable 08/19/20 04:23 Seg Neutrophils # 7.4 K/mm3 (1.8-7.7) 08/18/20 08:36 Seg Neutrophils # Man 5.0 K/mm3 (1.8-7.7) 08/19/20 04:23 Band Neutrophils # 0.2 K/mm3 08/19/20 04:23 Lymphocytes # (Manual) 0.5 K/mm3 (1.2-5.4) L 08/19/20 04:23 Abs React Lymphs (Man) 0.0 K/mm3 08/19/20 04:23 Monocytes # (Manual) 0.2 K/mm3 (0.0-0.8) 08/19/20 04:23 Eosinophils # (Manual) 0.0 K/mm3 (0.0-0.4) 08/19/20 04:23 Basophils # (Manual) 0.0 K/mm3 (0.0-0.1) 08/19/20 04:23 Metamyelocytes # 0.0 K/mm3 08/19/20 04:23 Myelocytes # 0.0 K/mm3 08/19/20 04:23 Promyelocytes # 0.0 K/mm3 08/19/20 04:23 Blast Cells # 0.0 K/mm3 08/19/20 04:23 WBC Morphology Not Reportable 08/19/20 04:23 Hypersegmented Neuts Not Reportable 08/19/20 04:23 Hyposegmented Neuts Not Reportable 08/19/20 04:23 Hypogranular Neuts Not Reportable 08/19/20 04:23 Smudge Cells Not Reportable 08/19/20 04:23 Toxic Granulation Not Reportable 08/19/20 04:23 Toxic Vacuolation Not Reportable 08/19/20 04:23 Dohle Bodies Not Reportable 08/19/20 04:23 Pelger-Huet Anomaly Not Reportable 08/19/20 04:23 Shannon Rods Not Reportable 08/19/20 04:23 Platelet Estimate Consistent w auto 08/19/20 04:23 Clumped Platelets Not Reportable 08/19/20 04:23 Plt Clumps, EDTA Not Reportable 08/19/20 04:23 Large Platelets Not Reportable 08/19/20 04:23 Giant Platelets Not Reportable 08/19/20 04:23 Platelet Satelliting Not Reportable 08/19/20 04:23 Plt Morphology Comment Not Reportable 08/19/20 04:23 RBC Morphology Not Reportable 08/19/20 04:23 Dimorphic RBCs Not Reportable 08/19/20 04:23 Polychromasia Not Reportable 08/19/20 04:23 Hypochromasia Not Reportable 08/19/20 04:23 Poikilocytosis 1+ 08/19/20 04:23 Anisocytosis 1+ 08/19/20 04:23 Microcytosis Not Reportable 08/19/20 04:23 Macrocytosis Not Reportable 08/19/20 04:23 Spherocytes Not Reportable 08/19/20 04:23 Pappenheimer Bodies Not Reportable 08/19/20 04:23 Sickle Cells Not Reportable 08/19/20 04:23 Target Cells Not Reportable 08/19/20 04:23 Tear Drop Cells Rare 08/19/20 04:23 Ovalocytes Few 08/19/20 04:23 Helmet Cells Not Reportable 08/19/20 04:23 Brice-[place] Bodies Not Reportable 08/19/20 04:23 Hewitt Rings Not Reportable 08/19/20 04:23 Cristal Cells 1+ 08/19/20 04:23 Bite Cells Not Reportable 08/19/20 04:23 Crenated Cell Not Reportable 08/19/20 04:23 Elliptocytes Few 08/19/20 04:23 Acanthocytes (Spur) Not Reportable 08/19/20 04:23 Rouleaux Not Reportable 08/19/20 04:23 Hemoglobin C Crystals Not Reportable 08/19/20 04:23 Schistocytes Not Reportable 08/19/20 04:23 Malaria parasites Not Reportable 08/19/20 04:23 Mateusz Bodies Not Reportable 08/19/20 04:23 Hem Pathologist Commnt No 08/19/20 04:23 D-Dimer > 60782 ng/mlDDU (0-234) H 08/23/20 14:07 VBG pH 7.389 (7.320-7.420) 08/15/20 17:12 Sodium 136 mmol/L (137-145) L 08/28/20 07:23 Potassium 4.4 mmol/L (3.6-5.0) 08/28/20 07:23 Chloride 96.4 mmol/L (98-107) L 08/28/20 07:23 Carbon Dioxide 28 mmol/L (22-30) 08/28/20 07:23 Anion Gap 16 mmol/L 08/28/20 07:23 BUN 47 mg/dL (7-17) H 08/28/20 07:23 Creatinine 5.8 mg/dL (0.6-1.2) H 08/28/20 07:23 Estimated GFR 9 ml/min 08/28/20 07:23 BUN/Creatinine Ratio 8 % 08/28/20 07:23 Glucose 314 mg/dL (65-100) H 08/28/20 07:23 POC Glucose 292 mg/dL (70-105) H 08/28/20 07:28 Hemoglobin A1c 7.6 % (4-6) H 08/16/20 04:32 Lactic Acid 1.30 mmol/L (0.7-2.0) 08/15/20 17:01 Calcium 7.8 mg/dL (8.4-10.2) L 08/28/20 07:23 Phosphorus 5.90 mg/dL (2.5-4.5) H 08/17/20 09:35 Ferritin 1053.0 ng/mL (10.0-200.0) H 08/23/20 14:07 Total Bilirubin < 0.20 mg/dL (0.1-1.2) 08/19/20 04:23 AST 40 units/L (5-40) 08/19/20 04:23 ALT 13 units/L (7-56) 08/19/20 04:23 Alkaline Phosphatase 58 units/L (35-129) 08/19/20 04:23 Lactate Dehydrogenase 994 units/L (91-180) H 08/23/20 14:07 C-Reactive Protein 0.80 mg/dL (0.00-1.30) 08/23/20 14:07 Total Protein 5.8 g/dL (6.3-8.2) L 08/19/20 04:23 Albumin 2.5 g/dL (3.9-5) L 08/19/20 04:23 Albumin/Globulin Ratio 0.8 % 08/19/20 04:23 Procalcitonin 2.11 ng/mL (<0.15) 08/15/20 17:01 PTH Intact 452.6 pg/mL (15-65) H 08/17/20 09:35 Urine Color Yellow (Yellow) 08/17/20 17:45 Urine Turbidity Turbid (Clear) 08/17/20 17:45 Urine pH 5.0 (5.0-7.0) 08/17/20 17:45 Ur Specific [place] 1.039 (1.003-1.030) H 08/17/20 17:45 Urine Protein >500 mg/dL (Negative) 08/17/20 17:45 Urine Glucose (UA) 50 mg/dL (Negative) 08/17/20 17:45 Urine Ketones Neg mg/dL (Negative) 08/17/20 17:45 Urine Blood Neg (Negative) 08/17/20 17:45 Urine Nitrite Neg (Negative) 08/17/20 17:45 Urine Bilirubin Neg (Negative) 08/17/20 17:45 Urine Urobilinogen < 2.0 mg/dL (<2.0) 08/17/20 17:45 Ur Leukocyte Esterase Neg (Negative) 08/17/20 17:45 Urine WBC (Auto) 32.0 /HPF (0.0-6.0) H 08/17/20 17:45 Urine RBC (Auto) 32.0 /HPF (0.0-6.0) 08/17/20 17:45 U Epithel Cells (Auto) 44.0 /HPF (0-13.0) H 08/17/20 17:45 Urine Bacteria (Auto) 2+ /HPF (Negative) 08/17/20 17:45 Urine Creatinine 248.0 mg/dL (0.1-20.0) H 08/17/20 17:45 Urine Total Protein 196 mg/dL (5-11.8) H 08/17/20 17:45 Coronavirus (PCR) Positive (Negative) A 08/16/20 Unknown Hepatitis A IgM Ab Non-reactive (NonReactive) 08/16/20 21:00 Hep Bs Antigen Non-reactive (Negative) 08/16/20 21:00 Hep B Core IgM Ab Non-reactive (NonReactive) 08/16/20 21:00 Hepatitis C Antibody Non-reactive (NonReactive) 08/16/20 21:00 Odom/IV: Voiding Method External Female Catheter Active Medications - Current Medications Current Medications: Generic Name Dose Route Start Last Admin Trade Name Freq PRN Reason Stop Dose Admin Acetaminophen 650 mg 08/15/20 22:16 08/19/20 01:17 Acetaminophen 325 Mg Tab PO 650 mg Q4H PRN Administration Pain MILD(1-3)/Fever >100.5/TELLO Hydrocodone Bitart/Acetaminophen 1 each 08/15/20 22:06 08/23/20 17:22 Hydrocodone/Acetaminophen 5-325 Mg Tab PO 1 each Q6HR PRN Administration Pain, Moderate (4-6) Albuterol 2.5 mg 08/27/20 00:38 Albuterol 2.5 Mg/3 Ml Nebu IH 09/26/20 00:36 Q6HRT PRN Shortness Of Breath Apixaban 5 mg 08/24/20 11:00 08/28/20 09:22 Apixaban 5 Mg Tab PO 5 mg Q12HR SYLVAIN Administration Protocol Ascorbic Acid 1,000 mg 08/15/20 23:00 08/28/20 09:22 Ascorbic Acid 500 Mg Tab PO 1,000 mg BID SYLVAIN Administration Benzonatate 100 mg 08/25/20 14:00 08/28/20 05:41 Benzonatate 100 Mg Cap PO 100 mg Q8HR SYLVAIN Administration Calcitriol 0.25 mcg 08/18/20 10:00 08/28/20 09:22 Calcitriol 0.25 Mcg Cap PO 0.25 mcg QDAY SYLVAIN Administration Dexamethasone 6 mg 08/26/20 15:00 08/28/20 09:23 Dexamethasone 4 Mg/Ml Vial IV 08/31/20 14:59 6 mg DAILY SYLVAIN Administration Dextrose 25 ml 08/27/20 08:08 Dextrose 50% In Water (25gm) 50 Ml Syringe IV Q30MIN PRN HYPOGLYCEMIA Protocol Ezetimibe 10 mg 08/16/20 10:00 08/28/20 09:23 Ezetimibe 10 Mg Tab PO 10 mg DAILY SYLVAIN Administration Hydromorphone HCl 0.5 mg 08/15/20 22:16 Hydromorphone 1 Mg/1 Ml Inj IV Q3H PRN Pain , Severe (7-10) Sodium Chloride 100 mls @ 999 mls/hr 08/24/20 08:20 Nacl 0.9% IV SARAI PRN Hypotension Insulin Glargine 35 units 08/26/20 08:30 08/28/20 09:34 Insulin Glargine 100 Units/Ml SUB-Q 35 units BID SYLVAIN Administration Insulin Human Lispro 0 unit 08/18/20 13:23 08/28/20 07:30 Insulin Lispro 100 Unit/Ml SUB-Q 6 unit ACHS SYLVAIN Administration Protocol Linagliptin 5 mg 08/16/20 10:00 08/28/20 09:23 Linagliptin 5 Mg Tab PO 5 mg QDAY SYLVAIN Administration Metoclopramide HCl 5 mg 08/15/20 22:37 Metoclopramide 10 Mg/2 Ml Inj IV Q6H PRN Nausea And Vomiting Multivit/Ca Carb/B Cmplx/FA/Prenat 1 cap 08/18/20 10:00 08/28/20 09:23 Folic Acid/Vit B Comp W-C 1 Mg (Renal Caps) PO 1 cap DAILY SYLVAIN Administration Nystatin 400,000 unit 08/26/20 18:24 08/28/20 08:00 Nystatin 500,000 Unit/5 Ml Oral Liqd PO 400,000 unit TID SYLVAIN Administration Ondansetron HCl 4 mg 08/15/20 22:16 Ondansetron 4 Mg/2 Ml Inj IV Q8H PRN Nausea And Vomiting Oxycodone/Acetaminophen 1 tab 08/15/20 22:16 08/18/20 09:58 Oxycodone /Acetaminophen 5-325mg Tab PO 1 tab Q6H PRN Administration Pain, Moderate (4-6) Pantoprazole Sodium 40 mg 08/16/20 10:00 08/28/20 09:22 Pantoprazole 40 Mg Tab PO 40 mg DAILY SYLVAIN Administration Pravastatin Sodium 40 mg 08/16/20 10:00 08/28/20 09:23 Pravastatin 40 Mg Tab PO 40 mg DAILY SYLVAIN Administration Pseudoephedrine/Acetam/Chlorphenir 10 ml 08/18/20 10:30 08/23/20 17:21 Guaifenesin/Codeine 100-10mg Oral Liqd 5 Ml PO 10 ml Q4H PRN Administration Cough Sodium Chloride 10 ml 08/15/20 23:00 08/28/20 09:21 Sodium Chloride 0.9% 10 Ml Flush Syringe IV 10 ml BID SYLVAIN Administration Sodium Chloride 10 ml 08/15/20 22:16 Sodium Chloride 0.9% 10 Ml Flush Syringe IV PRN PRN LINE FLUSH Zinc Sulfate 220 mg 08/15/20 23:00 08/28/20 09:22 Zinc Sulfate 220 Mg Cap PO 220 mg BID SYLVAIN Administration Nutrition/Malnutrition Assess - Dietary Evaluation Nutrition/Malnutrition Findings: Nutrition Notes Start: 08/22/20 12:53 Freq: Status: Active Protocol: Document 08/26/20 09:21 (Rec: 08/26/20 09:27 [id number]) Nutrition Notes Initial or Follow up Reassessment Current Diagnosis Acute Kidney Injury,CKD(stage I-IV),COPD,Diabetes, Respiratory Failure Other Pertinent Diagnosis COVID (+), on HD, pneu Current Diet Cardiac, Consistent CHO Labs/Tests BUN 65 Cr 6.5 BG 278 Pertinent Medications Reviewed Height 5 ft 2 in Weight 138.2 kg [place] Body Weight (kg) 50.00 BMI 55.7 Weight Status Morbidly Obese Subjective/Other Information FU for intakes. Pt reports eating 50% of meals and drinking some ONS but unsure how much. Pt reports some trouble swallowing which she states she told the MD this AM . RN UROLOGY evy recommened and RN made aware. Percent of energy/protein needs met: 60%/37% (excluding ONS) Burn Absent Trauma Absent GI Symptoms None Difficulty In Swallowing Current % PO Fair (50-74%) Minimum of two criteria No physical signs of malnutrition #1 Nutrition Diagnosis Inadequate oral intake As Evidenced by Signs and Symptoms pt eating 50% of meals Diagnosis Progress(for reassessment Worsened documentation) Is patient on ventilator? No Is Patient Ambulatory and/or Out of Bed No REE-([place]-confined to bed) [phone] Kcal/Kg value to use for calculation 12 Approximate Energy Requirements Using 1658 kcal/Kg Calculation Used for Recommendations Kcal/kg Additional Notes Protein: greater than 115g (>1 .2g/kg AdjBW 95.5kg) Fluid: 1000ml or per MD Nutrition Intervention Change Diet Order: Renal, cardiac, consistent CHO Add Supplement/Snack (indicate name/kcal Nepro daily /protein ) Provides kCal: 425 Provides Protein (gm) 19 Goal #1 Meet at least 75% of protein and energy needs via PO and ONS intakes Goal #2 ONS tolerance Anticipated Discharge Needs: Renal/ Consistent CHO diet Follow-Up By: 08/30/20 Additional Comments FU for intakes, RN UROLOGY consult, ONS tolerance
--- NOTE | 2020-08-28 13:30 | Progress Note ---
Assessment and Plan 64 y/o female with acute respiratory failure thought secondary to COVID, found to be positive 08/28/20: Continue to wean FiO2 as tolerated. HD per renal. Proning if able. Prognosis remains guarded but promising given reduction in oxygen 08/27/20: Continue to wean FiO2 as tolerated. HD per renal. Prone as tolerated. Guarded prognosis. 08/25/20: Empirically started on anticoags, monitor renal function and coags and hgb. LAst day of steroids, however may need to extend out if oxygen requirement doesn't improve with continued HD and volume removal. Encourage to prone or some variation of this. Guarded prognosis. 08/24/20: Markers remain elevated. IMS concerned about clot. dopplers negative so they have cleared with renal for CTA. Oxygenation not worse and I am not sure how aggressive weaning has been. Will attempt to do better today. HD per renal. Continue high dose steroids. Guarded prognosis. 08/23/20: Agree with HD again today. Wean FiO2 for sats >88% and patient comfort. Continue steroids at current dosing. Lantus for sugars. Will observe on HD again today. If anything, and a bed is needed, can transfer to step down. 08/22/20: HD per renal. Patient has questions about why she is requiring HD, pl ease address with her if possible. Hopeful she will have several HD sessions back to back as I feel a lot of her most recent decline is from volume. COntinue High dose steroids but will extend out to 10 days. Increase lantus to help with sugars. Can likely be transferred to step down or back to the floor. 08/19/20: Ordered PICC line for use during HD if patient requires vasopressors. Most likely increase in oxygen secondary to volume from lack of appropriate HD secondary to hypotension. Will give a couple amps of bicarb to see if this will help with blood pressure and can wills off pressor use. Continue steroids. Agree with ID on increasing the dose. Guarded prognosis 08/18/20: Prone as tolerated during day and sleep prone at night. Continue supplemental O2. Steroids for 10 days. Hold on nebs. Needs RT consult for documentation of oxygen therapy and requirements. 08/17/20: Found to be positive. Same recs as yesterday. Likely not a candidate for remdesivir given renal function. No nebulizer therapy, only inhaler therapy if and when needed. Continue supplemental O2 and proning is mcknight. Guarded prognosis given renal failure. 1. Follow up covid testing 2. Ok with current steroids 3. If patient brought in home inhalers, please allow pharmacy to verify and use them, no neb treatments 4. Prone during the day and and sleep prone at night as tolerated. Guarded prognosis. Subjective Date of service: 08/28/20 Principal diagnosis: Acute respiratory failure with hypoxia, ANGELIQUE superimposed onCKD, Covid pneum Interval history: Down to 15 liters and 55%. Stable. Objective Vital Signs - 12hr 08/28/20 08/28/20 08/28/20 03:00 04:40 04:53 Temperature 97.9 F Pulse Rate 78 Respiratory 18 18 Rate Blood Pressure 98/52 Blood Pressure 111/72 [Right] O2 Sat by Pulse 94 98 Oximetry 08/28/20 11:54 Temperature 98.3 F Pulse Rate 111 H Respiratory 18 Rate Blood Pressure 107/67 Blood Pressure [Right] O2 Sat by Pulse 93 Oximetry Constitutional: alert, other (obese, critically ill on ventilator) Eyes: non-icteric ENT: oropharynx moist Neck: supple Effort: normal Ascultation: Bilateral: diminished breath sounds Cardiovascular: regular rate and rhythm (no mrg) Gastrointestinal: normoactive bowel sounds, soft, non-tender, non-distended Integumentary: normal Extremities: no cyanosis, no edema Neurologic: normal mental status, non-focal exam Psychiatric: mood appropriate, affect normal CBC and BMP: 08/25/20 08:14 08/28/20 07:23 ABG, PT/INR, D-dimer: PT/INR, D-dimer D-Dimer > 27200 ng/mlDDU (0-234) H 08/23/20 14:07 Abnormal lab findings: Abnormal Labs 08/15/20 08/15/20 08/15/20 17:01 17:01 17:01 WBC RBC Hgb Hct MCH RDW 15.8 H Lymph % (Auto) 7.4 L Lymph # (Auto) 0.7 L Seg Neutrophils % 85.1 H Seg Neuts % (Manual) Lymphocytes % (Manual) Seg Neutrophils # 7.9 H Lymphocytes # (Manual) D-Dimer 1750.12 H Sodium Potassium 5.1 H Chloride 97.1 L Carbon Dioxide BUN 67 H Creatinine 4.8 H Glucose 101 H POC Glucose Hemoglobin A1c Calcium Phosphorus Ferritin AST 53 H Lactate Dehydrogenase C-Reactive Protein Total Protein Albumin 3.4 L PTH Intact Ur Specific [place] Urine WBC (Auto) U Epithel Cells (Auto) Urine Creatinine Urine Total Protein Coronavirus (PCR) 08/15/20 08/15/20 08/15/20 17:01 17:01 17:01 WBC RBC Hgb Hct MCH RDW Lymph % (Auto) Lymph # (Auto) Seg Neutrophils % Seg Neuts % (Manual) Lymphocytes % (Manual) Seg Neutrophils # Lymphocytes # (Manual) D-Dimer Sodium Potassium Chloride Carbon Dioxide BUN Creatinine Glucose 101 H POC Glucose Hemoglobin A1c Calcium Phosphorus Ferritin 667.2 H AST Lactate Dehydrogenase 606 H 567 H C-Reactive Protein 4.60 H 6.30 H Total Protein Albumin PTH Intact Ur Specific [place] Urine WBC (Auto) U Epithel Cells (Auto) Urine Creatinine Urine Total Protein Coronavirus (PCR) 08/16/20 08/16/20 08/16/20 04:32 04:32 04:32 WBC RBC Hgb Hct MCH 27 L RDW 15.9 H Lymph % (Auto) 12.6 L Lymph # (Auto) 0.8 L Seg Neutrophils % 83.7 H Seg Neuts % (Manual) Lymphocytes % (Manual) Seg Neutrophils # Lymphocytes # (Manual) D-Dimer Sodium 136 L Potassium 6.7 H* D Chloride Carbon Dioxide BUN 78 H Creatinine 6.2 H Glucose 223 H POC Glucose Hemoglobin A1c 7.6 H Calcium 7.8 L Phosphorus Ferritin AST 47 H Lactate Dehydrogenase C-Reactive Protein Total Protein 5.8 L D Albumin 3.1 L PTH Intact Ur Specific [place] Urine WBC (Auto) U Epithel Cells (Auto) Urine Creatinine Urine Total Protein Coronavirus (PCR) 08/16/20 08/16/20 08/16/20 17:01 17:05 21:41 WBC RBC Hgb Hct MCH RDW Lymph % (Auto) Lymph # (Auto) Seg Neutrophils % Seg Neuts % (Manual) Lymphocytes % (Manual) Seg Neutrophils # Lymphocytes # (Manual) D-Dimer Sodium Potassium Chloride Carbon Dioxide BUN 93 H Creatinine 7.7 H Glucose 228 H POC Glucose 150 H 204 H Hemoglobin A1c Calcium Phosphorus Ferritin AST Lactate Dehydrogenase C-Reactive Protein Total Protein Albumin PTH Intact Ur Specific [place] Urine WBC (Auto) U Epithel Cells (Auto) Urine Creatinine Urine Total Protein Coronavirus (PCR) 08/16/20 08/17/20 08/17/20 Unknown 07:31 07:31 WBC RBC Hgb Hct MCH 27 L RDW 16.0 H Lymph % (Auto) 4.2 L Lymph # (Auto) 0.4 L Seg Neutrophils % 90.0 H Seg Neuts % (Manual) Lymphocytes % (Manual) Seg Neutrophils # 8.8 H Lymphocytes # (Manual) D-Dimer Sodium Potassium 5.8 H D Chloride Carbon Dioxide 20 L BUN 103 H Creatinine 9.0 H Glucose 219 H POC Glucose Hemoglobin A1c Calcium 7.9 L Phosphorus Ferritin AST Lactate Dehydrogenase C-Reactive Protein Total Protein Albumin PTH Intact Ur Specific [place] Urine WBC (Auto) U Epithel Cells (Auto) Urine Creatinine Urine Total Protein Coronavirus (PCR) Positive A 08/17/20 08/17/20 08/17/20 07:44 09:35 09:35 WBC RBC Hgb Hct MCH RDW Lymph % (Auto) Lymph # (Auto) Seg Neutrophils % Seg Neuts % (Manual) Lymphocytes % (Manual) Seg Neutrophils # Lymphocytes # (Manual) D-Dimer Sodium Potassium Chloride Carbon Dioxide BUN Creatinine Glucose POC Glucose 188 H Hemoglobin A1c Calcium Phosphorus 5.90 H Ferritin AST Lactate Dehydrogenase C-Reactive Protein Total Protein Albumin PTH Intact 452.6 H Ur Specific [place] Urine WBC (Auto) U Epithel Cells (Auto) Urine Creatinine Urine Total Protein Coronavirus (PCR) 08/17/20 08/17/20 08/17/20 11:23 16:38 17:45 WBC RBC Hgb Hct MCH RDW Lymph % (Auto) Lymph # (Auto) Seg Neutrophils % Seg Neuts % (Manual) Lymphocytes % (Manual) Seg Neutrophils # Lymphocytes # (Manual) D-Dimer Sodium Potassium Chloride Carbon Dioxide BUN Creatinine Glucose POC Glucose 205 H 212 H Hemoglobin A1c Calcium Phosphorus Ferritin AST Lactate Dehydrogenase C-Reactive Protein Total Protein Albumin PTH Intact Ur Specific [place] 1.039 H Urine WBC (Auto) 32.0 H U Epithel Cells (Auto) 44.0 H Urine Creatinine Urine Total Protein Coronavirus (PCR) 08/17/20 08/17/20 08/18/20 17:45 21:39 08:00 WBC RBC Hgb Hct MCH RDW Lymph % (Auto) Lymph # (Auto) Seg Neutrophils % Seg Neuts % (Manual) Lymphocytes % (Manual) Seg Neutrophils # Lymphocytes # (Manual) D-Dimer Sodium Potassium Chloride Carbon Dioxide BUN Creatinine Glucose POC Glucose 206 H 229 H Hemoglobin A1c Calcium Phosphorus Ferritin AST Lactate Dehydrogenase C-Reactive Protein Total Protein Albumin PTH Intact Ur Specific [place] Urine WBC (Auto) U Epithel Cells (Auto) Urine Creatinine 248.0 H Urine Total Protein 196 H Coronavirus (PCR) 08/18/20 08/18/20 08/18/20 08:36 08:36 11:00 WBC RBC 3.64 L Hgb 10.0 L Hct MCH RDW 15.8 H Lymph % (Auto) 5.9 L Lymph # (Auto) 0.5 L Seg Neutrophils % 87.3 H Seg Neuts % (Manual) Lymphocytes % (Manual) Seg Neutrophils # Lymphocytes # (Manual) D-Dimer Sodium 135 L D Potassium Chloride 95.8 L Carbon Dioxide 20 L BUN 84 H Creatinine 8.4 H Glucose 262 H POC Glucose 238 H Hemoglobin A1c Calcium 7.5 L Phosphorus Ferritin AST Lactate Dehydrogenase C-Reactive Protein Total Protein 6.1 L Albumin 2.5 L PTH Intact Ur Specific [place] Urine WBC (Auto) U Epithel Cells (Auto) Urine Creatinine Urine Total Protein Coronavirus (PCR) 08/18/20 08/18/20 08/19/20 16:14 21:52 04:23 WBC RBC 3.53 L Hgb 9.5 L Hct 30.0 L MCH 27 L RDW 15.6 H Lymph % (Auto) Lymph # (Auto) Seg Neutrophils % Seg Neuts % (Manual) 84.0 H Lymphocytes % (Manual) 9.0 L Seg Neutrophils # Lymphocytes # (Manual) 0.5 L D-Dimer Sodium Potassium Chloride Carbon Dioxide BUN Creatinine Glucose POC Glucose 248 H 303 H Hemoglobin A1c Calcium Phosphorus Ferritin AST Lactate Dehydrogenase C-Reactive Protein Total Protein Albumin PTH Intact Ur Specific [place] Urine WBC (Auto) U Epithel Cells (Auto) Urine Creatinine Urine Total Protein Coronavirus (PCR) 08/19/20 08/19/20 08/19/20 04:23 06:44 11:53 WBC RBC Hgb Hct MCH RDW Lymph % (Auto) Lymph # (Auto) Seg Neutrophils % Seg Neuts % (Manual) Lymphocytes % (Manual) Seg Neutrophils # Lymphocytes # (Manual) D-Dimer Sodium Potassium Chloride 97.2 L Carbon Dioxide BUN 86 H Creatinine 9.2 H Glucose 271 H POC Glucose 213 H 266 H Hemoglobin A1c Calcium 7.5 L Phosphorus Ferritin AST Lactate Dehydrogenase C-Reactive Protein Total Protein 5.8 L Albumin 2.5 L PTH Intact Ur Specific [place] Urine WBC (Auto) U Epithel Cells (Auto) Urine Creatinine Urine Total Protein Coronavirus (PCR) 08/19/20 08/19/20 08/19/20 16:58 16:58 16:58 WBC RBC Hgb Hct MCH RDW Lymph % (Auto) Lymph # (Auto) Seg Neutrophils % Seg Neuts % (Manual) Lymphocytes % (Manual) Seg Neutrophils # Lymphocytes # (Manual) D-Dimer > 73374 H Sodium Potassium Chloride Carbon Dioxide BUN Creatinine Glucose POC Glucose Hemoglobin A1c Calcium Phosphorus Ferritin 1043.0 H AST Lactate Dehydrogenase 721 H C-Reactive Protein 3.00 H Total Protein Albumin PTH Intact Ur Specific [place] Urine WBC (Auto) U Epithel Cells (Auto) Urine Creatinine Urine Total Protein Coronavirus (PCR) 08/19/20 08/19/20 08/20/20 17:18 22:53 06:38 WBC RBC Hgb Hct MCH RDW Lymph % (Auto) Lymph # (Auto) Seg Neutrophils % Seg Neuts % (Manual) Lymphocytes % (Manual) Seg Neutrophils # Lymphocytes # (Manual) D-Dimer Sodium Potassium Chloride Carbon Dioxide BUN Creatinine Glucose POC Glucose 223 H 273 H 268 H Hemoglobin A1c Calcium Phosphorus Ferritin AST Lactate Dehydrogenase C-Reactive Protein Total Protein Albumin PTH Intact Ur Specific [place] Urine WBC (Auto) U Epithel Cells (Auto) Urine Creatinine Urine Total Protein Coronavirus (PCR) 08/20/20 08/20/20 08/20/20 08:21 11:47 15:46 WBC RBC Hgb Hct MCH RDW Lymph % (Auto) Lymph # (Auto) Seg Neutrophils % Seg Neuts % (Manual) Lymphocytes % (Manual) Seg Neutrophils # Lymphocytes # (Manual) D-Dimer Sodium Potassium Chloride Carbon Dioxide BUN Creatinine Glucose POC Glucose 264 H 288 H 262 H Hemoglobin A1c Calcium Phosphorus Ferritin AST Lactate Dehydrogenase C-Reactive Protein Total Protein Albumin PTH Intact Ur Specific [place] Urine WBC (Auto) U Epithel Cells (Auto) Urine Creatinine Urine Total Protein Coronavirus (PCR) 08/20/20 08/21/20 08/21/20 21:33 07:46 11:56 WBC RBC Hgb Hct MCH RDW Lymph % (Auto) Lymph # (Auto) Seg Neutrophils % Seg Neuts % (Manual) Lymphocytes % (Manual) Seg Neutrophils # Lymphocytes # (Manual) D-Dimer Sodium Potassium Chloride Carbon Dioxide BUN Creatinine Glucose POC Glucose 274 H 249 H 227 H Hemoglobin A1c Calcium Phosphorus Ferritin AST Lactate Dehydrogenase C-Reactive Protein Total Protein Albumin PTH Intact Ur Specific [place] Urine WBC (Auto) U Epithel Cells (Auto) Urine Creatinine Urine Total Protein Coronavirus (PCR) 08/21/20 08/21/20 08/22/20 17:19 21:34 08:48 WBC RBC Hgb Hct MCH RDW Lymph % (Auto) Lymph # (Auto) Seg Neutrophils % Seg Neuts % (Manual) Lymphocytes % (Manual) Seg Neutrophils # Lymphocytes # (Manual) D-Dimer Sodium Potassium Chloride Carbon Dioxide BUN Creatinine Glucose POC Glucose 318 H 286 H 257 H Hemoglobin A1c Calcium Phosphorus Ferritin AST Lactate Dehydrogenase C-Reactive Protein Total Protein Albumin PTH Intact Ur Specific [place] Urine WBC (Auto) U Epithel Cells (Auto) Urine Creatinine Urine Total Protein Coronavirus (PCR) 08/22/20 08/22/20 08/22/20 12:34 17:41 21:22 WBC RBC Hgb Hct MCH RDW Lymph % (Auto) Lymph # (Auto) Seg Neutrophils % Seg Neuts % (Manual) Lymphocytes % (Manual) Seg Neutrophils # Lymphocytes # (Manual) D-Dimer Sodium Potassium Chloride Carbon Dioxide BUN Creatinine Glucose POC Glucose 324 H 283 H 308 H Hemoglobin A1c Calcium Phosphorus Ferritin AST Lactate Dehydrogenase C-Reactive Protein Total Protein Albumin PTH Intact Ur Specific [place] Urine WBC (Auto) U Epithel Cells (Auto) Urine Creatinine Urine Total Protein Coronavirus (PCR) 08/23/20 08/23/20 08/23/20 05:24 05:47 05:47 WBC 13.7 H RBC Hgb 9.9 L Hct MCH 27 L RDW Lymph % (Auto) Lymph # (Auto) Seg Neutrophils % Seg Neuts % (Manual) Lymphocytes % (Manual) Seg Neutrophils # Lymphocytes # (Manual) D-Dimer Sodium 133 L Potassium Chloride 90.4 L Carbon Dioxide BUN 103 H Creatinine 9.5 H Glucose 346 H POC Glucose 297 H Hemoglobin A1c Calcium 7.9 L Phosphorus Ferritin AST Lactate Dehydrogenase C-Reactive Protein Total Protein Albumin PTH Intact Ur Specific [place] Urine WBC (Auto) U Epithel Cells (Auto) Urine Creatinine Urine Total Protein Coronavirus (PCR) 08/23/20 08/23/20 08/23/20 07:34 10:58 14:07 WBC RBC Hgb Hct MCH RDW Lymph % (Auto) Lymph # (Auto) Seg Neutrophils % Seg Neuts % (Manual) Lymphocytes % (Manual) Seg Neutrophils # Lymphocytes # (Manual) D-Dimer > 68915 H Sodium Potassium Chloride Carbon Dioxide BUN Creatinine Glucose POC Glucose 276 H 334 H Hemoglobin A1c Calcium Phosphorus Ferritin AST Lactate Dehydrogenase C-Reactive Protein Total Protein Albumin PTH Intact Ur Specific [place] Urine WBC (Auto) U Epithel Cells (Auto) Urine Creatinine Urine Total Protein Coronavirus (PCR) 08/23/20 08/23/20 08/23/20 14:07 14:07 15:54 WBC RBC Hgb Hct MCH RDW Lymph % (Auto) Lymph # (Auto) Seg Neutrophils % Seg Neuts % (Manual) Lymphocytes % (Manual) Seg Neutrophils # Lymphocytes # (Manual) D-Dimer Sodium Potassium Chloride Carbon Dioxide BUN Creatinine Glucose POC Glucose 248 H Hemoglobin A1c Calcium Phosphorus Ferritin 1053.0 H AST Lactate Dehydrogenase 994 H C-Reactive Protein Total Protein Albumin PTH Intact Ur Specific [place] Urine WBC (Auto) U Epithel Cells (Auto) Urine Creatinine Urine Total Protein Coronavirus (PCR) 08/23/20 08/24/20 08/24/20 21:18 06:06 06:06 WBC 17.9 H RBC Hgb 10.0 L Hct MCH 26 L RDW Lymph % (Auto) Lymph # (Auto) Seg Neutrophils % Seg Neuts % (Manual) Lymphocytes % (Manual) Seg Neutrophils # Lymphocytes # (Manual) D-Dimer Sodium Potassium 5.2 H Chloride 94.8 L Carbon Dioxide BUN 79 H Creatinine 7.9 H Glucose 230 H POC Glucose 206 H Hemoglobin A1c Calcium 8.3 L Phosphorus Ferritin AST Lactate Dehydrogenase C-Reactive Protein Total Protein Albumin PTH Intact Ur Specific [place] Urine WBC (Auto) U Epithel Cells (Auto) Urine Creatinine Urine Total Protein Coronavirus (PCR) 08/24/20 08/24/20 08/24/20 07:44 11:31 15:51 WBC RBC Hgb Hct MCH RDW Lymph % (Auto) Lymph # (Auto) Seg Neutrophils % Seg Neuts % (Manual) Lymphocytes % (Manual) Seg Neutrophils # Lymphocytes # (Manual) D-Dimer Sodium Potassium Chloride Carbon Dioxide BUN Creatinine Glucose POC Glucose 199 H 307 H 325 H Hemoglobin A1c Calcium Phosphorus Ferritin AST Lactate Dehydrogenase C-Reactive Protein Total Protein Albumin PTH Intact Ur Specific [place] Urine WBC (Auto) U Epithel Cells (Auto) Urine Creatinine Urine Total Protein Coronavirus (PCR) 08/24/20 08/25/20 08/25/20 21:43 08:08 08:14 WBC RBC Hgb Hct MCH RDW Lymph % (Auto) Lymph # (Auto) Seg Neutrophils % Seg Neuts % (Manual) Lymphocytes % (Manual) Seg Neutrophils # Lymphocytes # (Manual) D-Dimer Sodium Potassium Chloride Carbon Dioxide BUN 65 H Creatinine 6.6 H Glucose 278 H POC Glucose 227 H 253 H Hemoglobin A1c Calcium Phosphorus Ferritin AST Lactate Dehydrogenase C-Reactive Protein Total Protein Albumin PTH Intact Ur Specific [place] Urine WBC (Auto) U Epithel Cells (Auto) Urine Creatinine Urine Total Protein Coronavirus (PCR) 08/25/20 08/25/20 08/25/20 08:14 10:53 16:18 WBC 19.0 H RBC Hgb Hct MCH 27 L RDW 15.8 H Lymph % (Auto) Lymph # (Auto) Seg Neutrophils % Seg Neuts % (Manual) Lymphocytes % (Manual) Seg Neutrophils # Lymphocytes # (Manual) D-Dimer Sodium Potassium Chloride Carbon Dioxide BUN Creatinine Glucose POC Glucose 332 H 329 H Hemoglobin A1c Calcium Phosphorus Ferritin AST Lactate Dehydrogenase C-Reactive Protein Total Protein Albumin PTH Intact Ur Specific [place] Urine WBC (Auto) U Epithel Cells (Auto) Urine Creatinine Urine Total Protein Coronavirus (PCR) 08/25/20 08/26/20 08/26/20 21:52 01:10 08:21 WBC RBC Hgb Hct MCH RDW Lymph % (Auto) Lymph # (Auto) Seg Neutrophils % Seg Neuts % (Manual) Lymphocytes % (Manual) Seg Neutrophils # Lymphocytes # (Manual) D-Dimer Sodium Potassium Chloride Carbon Dioxide BUN Creatinine Glucose POC Glucose 311 H 426 H 182 H Hemoglobin A1c Calcium Phosphorus Ferritin AST Lactate Dehydrogenase C-Reactive Protein Total Protein Albumin PTH Intact Ur Specific [place] Urine WBC (Auto) U Epithel Cells (Auto) Urine Creatinine Urine Total Protein Coronavirus (PCR) 08/26/20 08/26/20 08/26/20 10:38 11:05 16:36 WBC RBC Hgb Hct MCH RDW Lymph % (Auto) Lymph # (Auto) Seg Neutrophils % Seg Neuts % (Manual) Lymphocytes % (Manual) Seg Neutrophils # Lymphocytes # (Manual) D-Dimer Sodium Potassium Chloride 95.5 L Carbon Dioxide BUN 95 H Creatinine 8.9 H Glucose 216 H POC Glucose 191 H 173 H Hemoglobin A1c Calcium Phosphorus Ferritin AST Lactate Dehydrogenase C-Reactive Protein Total Protein Albumin PTH Intact Ur Specific [place] Urine WBC (Auto) U Epithel Cells (Auto) Urine Creatinine Urine Total Protein Coronavirus (PCR) 08/26/20 08/27/20 08/27/20 22:22 06:13 07:36 WBC RBC Hgb Hct MCH RDW Lymph % (Auto) Lymph # (Auto) Seg Neutrophils % Seg Neuts % (Manual) Lymphocytes % (Manual) Seg Neutrophils # Lymphocytes # (Manual) D-Dimer Sodium Potassium Chloride Carbon Dioxide BUN 61 H Creatinine 6.9 H Glucose 52 L POC Glucose 160 H 38 L Hemoglobin A1c Calcium Phosphorus Ferritin AST Lactate Dehydrogenase C-Reactive Protein Total Protein Albumin PTH Intact Ur Specific [place] Urine WBC (Auto) U Epithel Cells (Auto) Urine Creatinine Urine Total Protein Coronavirus (PCR) 08/27/20 08/27/20 08/27/20 08:19 10:56 16:07 WBC RBC Hgb Hct MCH RDW Lymph % (Auto) Lymph # (Auto) Seg Neutrophils % Seg Neuts % (Manual) Lymphocytes % (Manual) Seg Neutrophils # Lymphocytes # (Manual) D-Dimer Sodium Potassium Chloride Carbon Dioxide BUN Creatinine Glucose POC Glucose 61 L 147 H 230 H Hemoglobin A1c Calcium Phosphorus Ferritin AST Lactate Dehydrogenase C-Reactive Protein Total Protein Albumin PTH Intact Ur Specific [place] Urine WBC (Auto) U Epithel Cells (Auto) Urine Creatinine Urine Total Protein Coronavirus (PCR) 08/27/20 08/28/20 08/28/20 21:31 07:23 07:28 WBC RBC Hgb Hct MCH RDW Lymph % (Auto) Lymph # (Auto) Seg Neutrophils % Seg Neuts % (Manual) Lymphocytes % (Manual) Seg Neutrophils # Lymphocytes # (Manual) D-Dimer Sodium 136 L Potassium Chloride 96.4 L Carbon Dioxide BUN 47 H Creatinine 5.8 H Glucose 314 H POC Glucose 314 H 292 H Hemoglobin A1c Calcium 7.8 L Phosphorus Ferritin AST Lactate Dehydrogenase C-Reactive Protein Total Protein Albumin PTH Intact Ur Specific [place] Urine WBC (Auto) U Epithel Cells (Auto) Urine Creatinine Urine Total Protein Coronavirus (PCR) 08/28/20 11:10 WBC RBC Hgb Hct MCH RDW Lymph % (Auto) Lymph # (Auto) Seg Neutrophils % Seg Neuts % (Manual) Lymphocytes % (Manual) Seg Neutrophils # Lymphocytes # (Manual) D-Dimer Sodium Potassium Chloride Carbon Dioxide BUN Creatinine Glucose POC Glucose 287 H Hemoglobin A1c Calcium Phosphorus Ferritin AST Lactate Dehydrogenase C-Reactive Protein Total Protein Albumin PTH Intact Ur Specific [place] Urine WBC (Auto) U Epithel Cells (Auto) Urine Creatinine Urine Total Protein Coronavirus (PCR)
--- NOTE | 2020-08-28 19:59 | Progress Note ---
Assessment and Plan Assessment and plan #Acute kidney injury: She was initially on daily dialysis and was then transitioned to intermittent dialysis. She received 2 consecutive treatments again on Saturday and Saturday for clearance as well as ultrafiltration. Hold dialysis today. Plan on next session tomorrow #Has underlying chronic kidney disease her baseline creatinine is around 1.7-[address] Rivers's office #Respiratory failure resulting from Covid 19 pneumonia + fluid overload- being followed by pulmonary service. UF with HD as tolerated. Continue UF 2-3 L with iHD. Limit fluid intake to 1L/d #Covid 19 viral pneumonia with ARDS like picture, patient has multiorgan failure, she will need ongoing renal replacement therapy as tolerated for now. Monitor labs and I/O daily. # Keep MAP> 65 # Renally dose medications # Renal diet Subjective Date of service: 08/28/20 Principal diagnosis: Acute respiratory failure with hypoxia, ANGELIQUE superimposed onCKD, Covid pneum Interval history: On high flow, decreasing requirements Notes some UOP Patient was seen for her renal issues Nursing, interdisciplinary and consult notes were reviewed Vitals, input and output, medications and labs were reviewed Objective - Exam Narrative Exam: General: No acute distress Neck: Supple, no JVD Extremity: No peripheral cyanosis, edema Neurological: Alert, awake, no asterixis Dermatology: No skin rash Psych: No agitation Musculoskeletal: No joint effusion - Vital Signs Vital signs: Vital Signs - 12hr 08/28/20 08/28/20 08/28/20 08:00 11:54 17:18 Temperature 98.3 F 98.0 F Pulse Rate 111 H 111 H Respiratory 18 18 Rate Blood Pressure 107/67 109/69 O2 Sat by Pulse 95 93 94 Oximetry 08/28/20 17:21 Temperature 98.1 F Pulse Rate 87 Respiratory 18 Rate Blood Pressure 108/72 O2 Sat by Pulse 91 Oximetry - Lab 08/25/20 08:14 08/28/20 07:23 Most recent lab results Calcium 7.8 mg/dL (8.4-10.2) L 08/28/20 07:23 Phosphorus 5.90 mg/dL (2.5-4.5) H 08/17/20 09:35 Urine Creatinine 248.0 mg/dL (0.1-20.0) H 08/17/20 17:45 Urine Total Protein 196 mg/dL (5-11.8) H 08/17/20 17:45 Medications & Allergies - Medications Allergies/Adverse Reactions: Allergies gabapentin [From Neurontin] Allergy (Verified 08/15/20 17:25) Unknown rosuvastatin calcium [From Crestor] Allergy (Verified 08/15/20 17:25) Rash fluticasone propionate [From Advair Diskus] Adverse Reaction (Verified 08/15/20 17:25) Headache salmeterol xinafoate [From Advair Diskus] Adverse Reaction (Verified 08/15/20 17:25) Headache IV DYE Allergy (Uncoded 08/24/20 10:28) Itching Home Medications: Home Medications Medication Instructions Recorded Confirmed Last Taken Type Colchicine [Colcrys] 0.6 mg PO DAILY 08/15/20 08/15/20 Unknown History Cyanocobalamin (Vitamin B-12) 1,000 mcg IJ QMONTH 08/15/20 08/15/20 Unknown History [Physicians Ez Use B-12] Ergocalciferol [Vitamin D2] 1 cap PO QWEEK 08/15/20 08/15/20 Unknown History Ezetimibe/Simvastatin 1 each PO DAILY 08/15/20 08/15/20 Unknown History [Ezetimibe-Simvastatin 10-20 mg] Famotidine [Pepcid] 40 mg PO DAILY 08/15/20 08/15/20 Unknown History Furosemide [Lasix] 40 mg PO BID 08/15/20 08/15/20 Unknown History HYDROcodone/APAP 5-325 [[place] 1 each PO Q6HR PRN 08/15/20 08/15/20 Unknown History 5/325] Linagliptin [Tradjenta] 5 mg PO QDAY 08/15/20 08/15/20 Unknown History Omeprazole 40 mg PO DAILY 08/15/20 08/15/20 Unknown History Potassium Chloride [K-Dur] 20 meq PO BID 08/15/20 08/15/20 Unknown History Valsartan [Diovan] 160 mg PO QDAY 08/15/20 08/15/20 Unknown History allopurinoL [Zyloprim] 200 mg PO DAILY 08/15/20 08/15/20 Unknown History carvediloL [Coreg] 3.125 mg PO BID 08/15/20 08/15/20 Unknown History Albuterol Sulfate [Proair 90 mcg INHALATION Q4H PRN 08/17/20 08/17/20 Unknown History Digihaler] Spiriva 2.5 mcg INHALATION DAILY 08/17/20 08/17/20 Unknown History Symbicort 160-4.5 Mcg Inhaler 160 mcg INHALATION BID 08/17/20 08/17/20 Unknown History Active Medications: Generic Name Dose Route Start Last Admin Trade Name Freq PRN Reason Stop Dose Admin Acetaminophen 650 mg 08/15/20 22:16 08/19/20 01:17 Acetaminophen 325 Mg Tab PO 650 mg Q4H PRN Administration Pain MILD(1-3)/Fever >100.5/TELLO Hydrocodone Bitart/Acetaminophen 1 each 08/15/20 22:06 08/23/20 17:22 Hydrocodone/Acetaminophen 5-325 Mg Tab PO 1 each Q6HR PRN Administration Pain, Moderate (4-6) Albuterol 2.5 mg 08/27/20 00:38 Albuterol 2.5 Mg/3 Ml Nebu IH 09/26/20 00:36 Q6HRT PRN Shortness Of Breath Apixaban 5 mg 08/24/20 11:00 08/28/20 09:22 Apixaban 5 Mg Tab PO 5 mg Q12HR SYLVAIN Administration Protocol Ascorbic Acid 1,000 mg 08/15/20 23:00 08/28/20 09:22 Ascorbic Acid 500 Mg Tab PO 1,000 mg BID SYLVAIN Administration Benzonatate 100 mg 08/25/20 14:00 08/28/20 13:59 Benzonatate 100 Mg Cap PO 100 mg Q8HR SYLVAIN Administration Calcitriol 0.25 mcg 08/18/20 10:00 08/28/20 09:22 Calcitriol 0.25 Mcg Cap PO 0.25 mcg QDAY SYLVAIN Administration Dexamethasone 6 mg 08/26/20 15:00 08/28/20 09:23 Dexamethasone 4 Mg/Ml Vial IV 08/31/20 14:59 6 mg DAILY SYLVAIN Administration Dextrose 25 ml 08/27/20 08:08 Dextrose 50% In Water (25gm) 50 Ml Syringe IV Q30MIN PRN HYPOGLYCEMIA Protocol Ezetimibe 10 mg 08/16/20 10:00 08/28/20 09:23 Ezetimibe 10 Mg Tab PO 10 mg DAILY SYLVAIN Administration Hydromorphone HCl 0.5 mg 08/15/20 22:16 Hydromorphone 1 Mg/1 Ml Inj IV Q3H PRN Pain , Severe (7-10) Sodium Chloride 100 mls @ 999 mls/hr 08/24/20 08:20 Nacl 0.9% IV SARAI PRN Hypotension Insulin Glargine 35 units 08/26/20 08:30 08/28/20 09:34 Insulin Glargine 100 Units/Ml SUB-Q 35 units BID SYLVAIN Administration Insulin Human Lispro 0 unit 08/18/20 13:23 08/28/20 16:40 Insulin Lispro 100 Unit/Ml SUB-Q 6 unit ACHS SYLVAIN Administration Protocol Linagliptin 5 mg 08/16/20 10:00 08/28/20 09:23 Linagliptin 5 Mg Tab PO 5 mg QDAY SYLVAIN Administration Metoclopramide HCl 5 mg 08/15/20 22:37 Metoclopramide 10 Mg/2 Ml Inj IV Q6H PRN Nausea And Vomiting Multivit/Ca Carb/B Cmplx/FA/Prenat 1 cap 08/18/20 10:00 08/28/20 09:23 Folic Acid/Vit B Comp W-C 1 Mg (Renal Caps) PO 1 cap DAILY SYLVAIN Administration Nystatin 400,000 unit 08/26/20 18:24 08/28/20 19:52 Nystatin 500,000 Unit/5 Ml Oral Liqd PO 400,000 unit TID SYLVAIN Administration Ondansetron HCl 4 mg 08/15/20 22:16 Ondansetron 4 Mg/2 Ml Inj IV Q8H PRN Nausea And Vomiting Oxycodone/Acetaminophen 1 tab 08/15/20 22:16 08/18/20 09:58 Oxycodone /Acetaminophen 5-325mg Tab PO 1 tab Q6H PRN Administration Pain, Moderate (4-6) Pantoprazole Sodium 40 mg 08/16/20 10:00 08/28/20 09:22 Pantoprazole 40 Mg Tab PO 40 mg DAILY SYLVAIN Administration Pravastatin Sodium 40 mg 08/16/20 10:00 08/28/20 09:23 Pravastatin 40 Mg Tab PO 40 mg DAILY SYLVAIN Administration Pseudoephedrine/Acetam/Chlorphenir 10 ml 08/18/20 10:30 08/23/20 17:21 Guaifenesin/Codeine 100-10mg Oral Liqd 5 Ml PO 10 ml Q4H PRN Administration Cough Sodium Chloride 10 ml 08/15/20 23:00 08/28/20 09:21 Sodium Chloride 0.9% 10 Ml Flush Syringe IV 10 ml BID SYLVAIN Administration Sodium Chloride 10 ml 08/15/20 22:16 Sodium Chloride 0.9% 10 Ml Flush Syringe IV PRN PRN LINE FLUSH Zinc Sulfate 220 mg 08/15/20 23:00 08/28/20 09:22 Zinc Sulfate 220 Mg Cap PO 220 mg BID SYLVAIN Administration
[2020-08-29] MEDS: BENZONATATE 100 MG CAP PO SCH ×3 (05:43→22:26)
[2020-08-29 07:49] LABS: Calcium 7.9 mg/dL (8.4-10.2)
[2020-08-29] MEDS: INSULIN LISPRO 100 UNIT/ML SUB-Q SCH ×3 (08:30→16:28)
--- NOTE | 2020-08-29 10:00 | Progress Note ---
Assessment and Plan Assessment and plan: #Acute hypoxic respiratory failure Secondary to Covid pneumonia Continue oxygen supplementation-on high flow 15 L FiO2 55% #COVID-19 pneumonia Status post azithromycin and ceftriaxone Not a candidate for remdesivir due to impaired renal function Continue dexamethasone Incentive spirometer Prone positioning as tolerated Pulmonology following ID on board #ANGELIQUE on CKD now on hemodialysis Likely ATN Tolerating hemodialysis Continue hemodialysis as scheduled Nephrology on board #Elevated D-dimer Ultrasound lower extremity Doppler negative Unable to obtain CTA chest due to allergies Continue apixaban 5 mg twice a day #HAREPR, COPD States that she uses BiPAP at home BiPAP QHS #Diabetes mellitus Lantus and lispro Tradjenta #Hyperlipidemia Continue statins #Hypertension Continue medication # Oral thrush Nystatin #COPD Stable DVT/GI prophylaxis: SCDs to BLE while in bed, PPI, Eliquis twice daily Disposition: TTF History Interval history: This is a 64-year-old female with hypertension, diabetes, COPD, CVA, gout, hyperlipidemia who presented to the emergency department on 08/15 for a productive cough, wheezing, headache, subjective fevers scratchy throat ongoing for 4 weeks since 07/21/2020 s/p Z-Bipin and steroids who was COVID-19 positive prior to a dmission. Pulmonology, infectious disease, nephrology were consulted. 08/29. Remains on 15L 55% HFNC. Continue to wean as tolerated. Prone positioning PRN. 08/28. Weaned down to 15 L 55%FiO2. Using incentive spirometer. 08/27. On HFNC - 30 L 705 FiO2. She has HARPER and uses BIPAP at home. BIPAP at beds varsha. Complains of pain with swallowing. Ordered nystatin. 08/26. On HFNC - 30 L 705 FiO2. She has HARPER and uses BIPAP at home. Will place order for BIPAP 08/25. On high flow nasal cannula 30 L, FiO2 90%. Started empirically on Eliquis 5 mg twice daily for possible PE. She has no complaints this morning. Has some cough. Pulmonology and ID following. Remains on steroids 08/24: Patient remains on HFNC at 40L, 80% FiO2, her ddimer>[id number] and her BLE Doppler US (-) for DVT. Unable to obtain a CTA chest due to allergy to contrast. We will treat Eliquis 5 mg twice daily. Wean supplemental oxygen ation as tolerated. Patient will be transferred to the floor today. 08/23: Patient complains of cough, intermittent shortness of breath, received hemodialysis today and remains on high flow nasal cannula at 40 L, 80%. No acute events reported overnight. VQ scan and bilateral lower extremity Doppler ultrasound pending 08/22: High flow nasal cannula, intermittent HD, high-dose steroids 08/21: High flow nasal cannula 08/20:-High flow nasal cannula 08/19:-High flow nasal cannula, PICC line ordered, bicarb 08/18: High flow nasal cannula, transferred to ICU 08/17: Hypoxia,-nasal cannula 08/16: High flow nasal cannula, Vas-Cath placement for intermittent HD, COVID-19 PCR positive Hospitalist Physical - Physical exam Narrative exam: VITAL SIGNS: Reviewed. GENERAL: Awake HEAD: No signs of head trauma. EYES: Pupils are equal. Extraocular motions intact. MOUTH: Oropharynx is normal. NECK: No adenopathy, no JVD. CHEST: Chest with diminished breath sounds bilaterally. No wheezes, rales, or rhonchi. CARDIAC: normal S1 and S2, without murmurs, gallops, or rubs. ABDOMEN: Soft, non tender and non distended. No rebound or guarding, and no masses palpated. Bowel Sounds normal. MUSCULOSKELETAL: No edema NEUROLOGIC EXAM: Alert and oriented x3. No focal neurologic deficits SKIN: No obvious lesions - Constitutional Vitals: Temp Pulse Resp BP Pulse Ox 97.5 F L 68 18 124/70 96 08/29/20 04:21 08/29/20 04:21 08/29/20 04:21 08/29/20 04:21 08/29/20 06:05 Results - Labs CBC & Chem 7: 08/25/20 08:14 08/29/20 06:42 Labs: Laboratory Last Values WBC 19.0 K/mm3 (4.5-11.0) H 08/25/20 08:14 RBC 3.86 M/mm3 (3.65-5.03) 08/25/20 08:14 Hgb 10.3 gm/dl (10.1-14.3) 08/25/20 08:14 Hct 32.6 % (30.3-42.9) 08/25/20 08:14 MCV 84 fl (79-97) 08/25/20 08:14 MCH 27 pg (28-32) L 08/25/20 08:14 MCHC 32 % (30-34) 08/25/20 08:14 RDW 15.8 % (13.2-15.2) H 08/25/20 08:14 Plt Count 234 K/mm3 (140-440) 08/25/20 08:14 Lymph % (Auto) 5.9 % (13.4-35.0) L 08/18/20 08:36 [place] % (Auto) 6.6 % (0.0-7.3) 08/18/20 08:36 Eos % (Auto) 0.0 % (0.0-4.3) 08/18/20 08:36 Baso % (Auto) 0.2 % (0.0-1.8) 08/18/20 08:36 Lymph # (Auto) 0.5 K/mm3 (1.2-5.4) L 08/18/20 08:36 [place] # (Auto) 0.6 K/mm3 (0.0-0.8) 08/18/20 08:36 Eos # (Auto) 0.0 K/mm3 (0.0-0.4) 08/18/20 08:36 Baso # (Auto) 0.0 K/mm3 (0.0-0.1) 08/18/20 08:36 Add Manual Diff Complete 08/19/20 04:23 Total Counted 100 08/19/20 04:23 Seg Neutrophils % 87.3 % (40.0-70.0) H 08/18/20 08:36 Seg Neuts % (Manual) 84.0 % (40.0-70.0) H 08/19/20 04:23 Band Neutrophils % 3.0 % 08/19/20 04:23 Lymphocytes % (Manual) 9.0 % (13.4-35.0) L 08/19/20 04:23 Monocytes % (Manual) 4.0 % (0.0-7.3) 08/19/20 04:23 Nucleated RBC % Not Reportable 08/19/20 04:23 Seg Neutrophils # 7.4 K/mm3 (1.8-7.7) 08/18/20 08:36 Seg Neutrophils # Man 5.0 K/mm3 (1.8-7.7) 08/19/20 04:23 Band Neutrophils # 0.2 K/mm3 08/19/20 04:23 Lymphocytes # (Manual) 0.5 K/mm3 (1.2-5.4) L 08/19/20 04:23 Abs React Lymphs (Man) 0.0 K/mm3 08/19/20 04:23 Monocytes # (Manual) 0.2 K/mm3 (0.0-0.8) 08/19/20 04:23 Eosinophils # (Manual) 0.0 K/mm3 (0.0-0.4) 08/19/20 04:23 Basophils # (Manual) 0.0 K/mm3 (0.0-0.1) 08/19/20 04:23 Metamyelocytes # 0.0 K/mm3 08/19/20 04:23 Myelocytes # 0.0 K/mm3 08/19/20 04:23 Promyelocytes # 0.0 K/mm3 08/19/20 04:23 Blast Cells # 0.0 K/mm3 08/19/20 04:23 WBC Morphology Not Reportable 08/19/20 04:23 Hypersegmented Neuts Not Reportable 08/19/20 04:23 Hyposegmented Neuts Not Reportable 08/19/20 04:23 Hypogranular Neuts Not Reportable 08/19/20 04:23 Smudge Cells Not Reportable 08/19/20 04:23 Toxic Granulation Not Reportable 08/19/20 04:23 Toxic Vacuolation Not Reportable 08/19/20 04:23 Dohle Bodies Not Reportable 08/19/20 04:23 Pelger-Huet Anomaly Not Reportable 08/19/20 04:23 Shannon Rods Not Reportable 08/19/20 04:23 Platelet Estimate Consistent w auto 08/19/20 04:23 Clumped Platelets Not Reportable 08/19/20 04:23 Plt Clumps, EDTA Not Reportable 08/19/20 04:23 Large Platelets Not Reportable 08/19/20 04:23 Giant Platelets Not Reportable 08/19/20 04:23 Platelet Satelliting Not Reportable 08/19/20 04:23 Plt Morphology Comment Not Reportable 08/19/20 04:23 RBC Morphology Not Reportable 08/19/20 04:23 Dimorphic RBCs Not Reportable 08/19/20 04:23 Polychromasia Not Reportable 08/19/20 04:23 Hypochromasia Not Reportable 08/19/20 04:23 Poikilocytosis 1+ 08/19/20 04:23 Anisocytosis 1+ 08/19/20 04:23 Microcytosis Not Reportable 08/19/20 04:23 Macrocytosis Not Reportable 08/19/20 04:23 Spherocytes Not Reportable 08/19/20 04:23 Pappenheimer Bodies Not Reportable 08/19/20 04:23 Sickle Cells Not Reportable 08/19/20 04:23 Target Cells Not Reportable 08/19/20 04:23 Tear Drop Cells Rare 08/19/20 04:23 Ovalocytes Few 08/19/20 04:23 Helmet Cells Not Reportable 08/19/20 04:23 Brice-Sims Bodies Not Reportable 08/19/20 04:23 Fabens Rings Not Reportable 08/19/20 04:23 Cristal Cells 1+ 08/19/20 04:23 Bite Cells Not Reportable 08/19/20 04:23 Crenated Cell Not Reportable 08/19/20 04:23 Elliptocytes Few 08/19/20 04:23 Acanthocytes (Spur) Not Reportable 08/19/20 04:23 Rouleaux Not Reportable 08/19/20 04:23 Hemoglobin C Crystals Not Reportable 08/19/20 04:23 Schistocytes Not Reportable 08/19/20 04:23 Malaria parasites Not Reportable 08/19/20 04:23 Mateusz Bodies Not Reportable 08/19/20 04:23 Hem Pathologist Commnt No 08/19/20 04:23 D-Dimer > 14817 ng/mlDDU (0-234) H 08/23/20 14:07 VBG pH 7.389 (7.320-7.420) 08/15/20 17:12 Sodium 135 mmol/L (137-145) L 08/29/20 06:42 Potassium 4.4 mmol/L (3.6-5.0) 08/29/20 06:42 Chloride 95.9 mmol/L (98-107) L 08/29/20 06:42 Carbon Dioxide 27 mmol/L (22-30) 08/29/20 06:42 Anion Gap 17 mmol/L 08/29/20 06:42 BUN 72 mg/dL (7-17) H 08/29/20 06:42 Creatinine 8.0 mg/dL (0.6-1.2) H 08/29/20 06:42 Estimated GFR 6 ml/min 08/29/20 06:42 BUN/Creatinine Ratio 9 % 08/29/20 06:42 Glucose 236 mg/dL (65-100) H 08/29/20 06:42 POC Glucose 172 mg/dL (70-105) H 08/29/20 08:18 Hemoglobin A1c 7.6 % (4-6) H 08/16/20 04:32 Lactic Acid 1.30 mmol/L (0.7-2.0) 08/15/20 17:01 Calcium 7.9 mg/dL (8.4-10.2) L 08/29/20 06:42 Phosphorus 5.90 mg/dL (2.5-4.5) H 08/17/20 09:35 Ferritin 1053.0 ng/mL (10.0-200.0) H 08/23/20 14:07 Total Bilirubin < 0.20 mg/dL (0.1-1.2) 08/19/20 04:23 AST 40 units/L (5-40) 08/19/20 04:23 ALT 13 units/L (7-56) 08/19/20 04:23 Alkaline Phosphatase 58 units/L (35-129) 08/19/20 04:23 Lactate Dehydrogenase 994 units/L (91-180) H 08/23/20 14:07 C-Reactive Protein 0.80 mg/dL (0.00-1.30) 08/23/20 14:07 Total Protein 5.8 g/dL (6.3-8.2) L 08/19/20 04:23 Albumin 2.5 g/dL (3.9-5) L 08/19/20 04:23 Albumin/Globulin Ratio 0.8 % 08/19/20 04:23 Procalcitonin 2.11 ng/mL (<0.15) 08/15/20 17:01 PTH Intact 452.6 pg/mL (15-65) H 08/17/20 09:35 Urine Color Yellow (Yellow) 08/17/20 17:45 Urine Turbidity Turbid (Clear) 08/17/20 17:45 Urine pH 5.0 (5.0-7.0) 08/17/20 17:45 Ur Specific [place] 1.039 (1.003-1.030) H 08/17/20 17:45 Urine Protein >500 mg/dL (Negative) 08/17/20 17:45 Urine Glucose (UA) 50 mg/dL (Negative) 08/17/20 17:45 Urine Ketones Neg mg/dL (Negative) 08/17/20 17:45 Urine Blood Neg (Negative) 08/17/20 17:45 Urine Nitrite Neg (Negative) 08/17/20 17:45 Urine Bilirubin Neg (Negative) 08/17/20 17:45 Urine Urobilinogen < 2.0 mg/dL (<2.0) 08/17/20 17:45 Ur Leukocyte Esterase Neg (Negative) 08/17/20 17:45 Urine WBC (Auto) 32.0 /HPF (0.0-6.0) H 08/17/20 17:45 Urine RBC (Auto) 32.0 /HPF (0.0-6.0) 08/17/20 17:45 U Epithel Cells (Auto) 44.0 /HPF (0-13.0) H 08/17/20 17:45 Urine Bacteria (Auto) 2+ /HPF (Negative) 08/17/20 17:45 Urine Creatinine 248.0 mg/dL (0.1-20.0) H 08/17/20 17:45 Urine Total Protein 196 mg/dL (5-11.8) H 08/17/20 17:45 Coronavirus (PCR) Positive (Negative) A 08/16/20 Unknown Hepatitis A IgM Ab Non-reactive (NonReactive) 08/16/20 21:00 Hep Bs Antigen Non-reactive (Negative) 08/16/20 21:00 Hep B Core IgM Ab Non-reactive (NonReactive) 08/16/20 21:00 Hepatitis C Antibody Non-reactive (NonReactive) 08/16/20 21:00 Odom/IV: Voiding Method External Female Catheter Active Medications - Current Medications Current Medications: Generic Name Dose Route Start Last Admin Trade Name Freq PRN Reason Stop Dose Admin Acetaminophen 650 mg 08/15/20 22:16 08/19/20 01:17 Acetaminophen 325 Mg Tab PO 650 mg Q4H PRN Administration Pain MILD(1-3)/Fever >100.5/TELLO Hydrocodone Bitart/Acetaminophen 1 each 08/15/20 22:06 08/23/20 17:22 Hydrocodone/Acetaminophen 5-325 Mg Tab PO 1 each Q6HR PRN Administration Pain, Moderate (4-6) Albuterol 2.5 mg 08/27/20 00:38 Albuterol 2.5 Mg/3 Ml Nebu IH 09/26/20 00:36 Q6HRT PRN Shortness Of Breath Apixaban 5 mg 08/24/20 11:00 08/28/20 21:11 Apixaban 5 Mg Tab PO 5 mg Q12HR SYLVAIN Administration Protocol Ascorbic Acid 1,000 mg 08/15/20 23:00 08/28/20 21:11 Ascorbic Acid 500 Mg Tab PO 1,000 mg BID SYLVAIN Administration Benzonatate 100 mg 08/25/20 14:00 08/29/20 05:43 Benzonatate 100 Mg Cap PO 100 mg Q8HR SYLVAIN Administration Calcitriol 0.25 mcg 08/18/20 10:00 08/28/20 09:22 Calcitriol 0.25 Mcg Cap PO 0.25 mcg QDAY SYLVAIN Administration Dexamethasone 6 mg 08/26/20 15:00 08/28/20 09:23 Dexamethasone 4 Mg/Ml Vial IV 08/31/20 14:59 6 mg DAILY SYLVAIN Administration Dextrose 25 ml 08/27/20 08:08 Dextrose 50% In Water (25gm) 50 Ml Syringe IV Q30MIN PRN HYPOGLYCEMIA Protocol Ezetimibe 10 mg 08/16/20 10:00 08/28/20 09:23 Ezetimibe 10 Mg Tab PO 10 mg DAILY SYLVAIN Administration Hydromorphone HCl 0.5 mg 08/15/20 22:16 Hydromorphone 1 Mg/1 Ml Inj IV Q3H PRN Pain , Severe (7-10) Sodium Chloride 100 mls @ 999 mls/hr 08/24/20 08:20 Nacl 0.9% IV SARAI PRN Hypotension Insulin Glargine 35 units 08/26/20 08:30 08/28/20 23:14 Insulin Glargine 100 Units/Ml SUB-Q 35 units BID SYLVAIN Administration Insulin Human Lispro 0 unit 08/18/20 13:23 08/29/20 08:30 Insulin Lispro 100 Unit/Ml SUB-Q 3 unit ACHS SYLVAIN Administration Protocol Linagliptin 5 mg 08/16/20 10:00 08/28/20 09:23 Linagliptin 5 Mg Tab PO 5 mg QDAY SYLVAIN Administration Metoclopramide HCl 5 mg 08/15/20 22:37 Metoclopramide 10 Mg/2 Ml Inj IV Q6H PRN Nausea And Vomiting Multivit/Ca Carb/B Cmplx/FA/Prenat 1 cap 08/18/20 10:00 08/28/20 09:23 Folic Acid/Vit B Comp W-C 1 Mg (Renal Caps) PO 1 cap DAILY SYLVAIN Administration Nystatin 400,000 unit 08/26/20 18:24 08/28/20 19:52 Nystatin 500,000 Unit/5 Ml Oral Liqd PO 400,000 unit TID SYLVAIN Administration Ondansetron HCl 4 mg 08/15/20 22:16 Ondansetron 4 Mg/2 Ml Inj IV Q8H PRN Nausea And Vomiting Oxycodone/Acetaminophen 1 tab 08/15/20 22:16 08/18/20 09:58 Oxycodone /Acetaminophen 5-325mg Tab PO 1 tab Q6H PRN Administration Pain, Moderate (4-6) Pantoprazole Sodium 40 mg 08/16/20 10:00 08/28/20 09:22 Pantoprazole 40 Mg Tab PO 40 mg DAILY SYLVAIN Administration Pravastatin Sodium 40 mg 08/16/20 10:00 08/28/20 09:23 Pravastatin 40 Mg Tab PO 40 mg DAILY SYLVAIN Administration Pseudoephedrine/Acetam/Chlorphenir 10 ml 08/18/20 10:30 08/23/20 17:21 Guaifenesin/Codeine 100-10mg Oral Liqd 5 Ml PO 10 ml Q4H PRN Administration Cough Sodium Chloride 10 ml 08/15/20 23:00 08/28/20 21:12 Sodium Chloride 0.9% 10 Ml Flush Syringe IV 10 ml BID SYLVAIN Administration Sodium Chloride 10 ml 08/15/20 22:16 Sodium Chloride 0.9% 10 Ml Flush Syringe IV PRN PRN LINE FLUSH Zinc Sulfate 220 mg 08/15/20 23:00 08/28/20 21:10 Zinc Sulfate 220 Mg Cap PO 220 mg BID SYLVAIN Administration Nutrition/Malnutrition Assess - Dietary Evaluation Nutrition/Malnutrition Findings: Nutrition Notes Start: 08/22/20 12:53 Freq: Status: Active Protocol: Document 08/26/20 09:21 DEAN (Rec: 08/26/20 09:27 [id number]) Nutrition Notes Initial or Follow up Reassessment Current Diagnosis Acute Kidney Injury,CKD(stage I-IV),COPD,Diabetes, Respiratory Failure Other Pertinent Diagnosis COVID (+), on HD, pneu Current Diet Cardiac, Consistent CHO Labs/Tests BUN 65 Cr 6.5 BG 278 Pertinent Medications Reviewed Height 5 ft 2 in Weight 138.2 kg [place] Body Weight (kg) 50.00 BMI 55.7 Weight Status Morbidly Obese Subjective/Other Information FU for intakes. Pt reports eating 50% of meals and drinking some ONS but unsure how much. Pt reports some trouble swallowing which she states she told the MD this AM . JOIST SETTER eval recommened and RN made aware. Percent of energy/protein needs met: 60%/37% (excluding ONS) Burn Absent Trauma Absent GI Symptoms None Difficulty In Swallowing Current % PO Fair (50-74%) Minimum of two criteria No physical signs of malnutrition #1 Nutrition Diagnosis Inadequate oral intake As Evidenced by Signs and Symptoms pt eating 50% of meals Diagnosis Progress(for reassessment Worsened documentation) Is patient on ventilator? No Is Patient Ambulatory and/or Out of Bed No REE-([facility]-confined to bed) 2254.980 Kcal/Kg value to use for calculation 12 Approximate Energy Requirements Using 1658 kcal/Kg Calculation Used for Recommendations Kcal/kg Additional Notes Protein: greater than 115g (>1 .2g/kg AdjBW 95.5kg) Fluid: 1000ml or per MD Nutrition Intervention Change Diet Order: Renal, cardiac, consistent CHO Add Supplement/Snack (indicate name/kcal Nepro daily /protein ) Provides kCal: 425 Provides Protein (gm) 19 Goal #1 Meet at least 75% of protein and energy needs via PO and ONS intakes Goal #2 ONS tolerance Anticipated Discharge Needs: Renal/ Consistent CHO diet Follow-Up By: 08/30/20 Additional Comments FU for intakes, JOIST SETTER consult, ONS tolerance
[2020-08-29] MEDS: EZETIMIBE 10 MG TAB PO SCH (10:03)
[2020-08-29] MEDS: ZINC SULFATE 220 MG CAP PO SCH ×2 (10:03→22:26)
[2020-08-29] MEDS: APIXABAN 5 MG TAB PO SCH ×2 (10:03→22:25)
[2020-08-29] MEDS: CALCITRIOL 0.25 MCG CAP PO SCH (10:03)
[2020-08-29] MEDS: PRAVASTATIN 40 MG TAB PO SCH (10:03)
[2020-08-29] MEDS: ASCORBIC ACID 500 MG TAB PO SCH ×2 (10:03→22:26)
[2020-08-29] MEDS: PANTOPRAZOLE 40 MG TAB PO SCH (10:03)
[2020-08-29] MEDS: NYSTATIN 500,000 UNIT/5 ML ORAL LIQD PO SCH ×3 (10:03→22:26)
[2020-08-29] MEDS: FOLIC ACID/VIT B COMP W-C 1 MG (RENAL CAPS) PO SCH (10:03)
[2020-08-29] MEDS: dexAMETHasone 4 MG/ML VIAL IV SCH (10:04)
[2020-08-29] MEDS: LINAGLIPTIN 5 MG TAB PO SCH (10:04)
[2020-08-29] MEDS: INSULIN GLARGINE 100 UNITS/ML SUB-Q SCH (10:05)
--- NOTE | 2020-08-29 10:33 | Progress Note ---
Assessment and Plan Impression: #Acute kidney injury: She was initially on daily dialysis and was then transitioned to intermittent dialysis. #Has underlying chronic kidney disease her baseline creatinine is around 1.7-[address] Rivers's office #Respiratory failure resulting from Covid 19 pneumonia + fluid overload- being followed by pulmonary service. UF with HD as tolerated. Limit fluid intake to 1L/d #Covid 19 viral pneumonia with ARDS like picture, patient has multiorgan failure Plan: #HD MWF #she will need ongoing renal replacement therapy as tolerated for now. Monitor labs and I/O daily. # Keep MAP> 65 # Renally dose medications # Renal diet arrange outpatient hd placement Subjective Principal diagnosis: Acute respiratory failure with hypoxia, ANGELIQUE superimposed onCKD, Covid pneum Interval history: Subjective Date of service: 08/28/20 Principal diagnosis: Acute respiratory failure with hypoxia, ANGELIQUE superimposed onCKD, Covid pneum Interval history: Patient was seen for her renal issues Nursing, interdisciplinary and consult notes were reviewed Vitals, input and output, medications and labs were reviewed Objective - Exam Narrative Exam: deferred for preservation of ppe Objective - Vital Signs Vital signs: Vital Signs - 12hr 08/29/20 08/29/20 04:21 06:05 Temperature 97.5 F L Pulse Rate 68 Respiratory 18 Rate Blood Pressure 124/70 [Right] O2 Sat by Pulse 98 96 Oximetry - Lab 08/25/20 08:14 08/29/20 06:42 Most recent lab results Calcium 7.9 mg/dL (8.4-10.2) L 08/29/20 06:42 Phosphorus 5.90 mg/dL (2.5-4.5) H 08/17/20 09:35 Urine Creatinine 248.0 mg/dL (0.1-20.0) H 08/17/20 17:45 Urine Total Protein 196 mg/dL (5-11.8) H 08/17/20 17:45 Medications & Allergies - Medications Allergies/Adverse Reactions: Allergies gabapentin [From Neurontin] Allergy (Verified 08/15/20 17:25) Unknown rosuvastatin calcium [From Crestor] Allergy (Verified 08/15/20 17:25) Rash fluticasone propionate [From Advair Diskus] Adverse Reaction (Verified 08/15/20 17:25) Headache salmeterol xinafoate [From Advair Diskus] Adverse Reaction (Verified 08/15/20 17:25) Headache IV DYE Allergy (Uncoded 08/24/20 10:28) Itching Home Medications: Home Medications Medication Instructions Recorded Confirmed Last Taken Type Colchicine [Colcrys] 0.6 mg PO DAILY 08/15/20 08/15/20 Unknown History Cyanocobalamin (Vitamin B-12) 1,000 mcg IJ QMONTH 08/15/20 08/15/20 Unknown History [Physicians Ez Use B-12] Ergocalciferol [Vitamin D2] 1 cap PO QWEEK 08/15/20 08/15/20 Unknown History Ezetimibe/Simvastatin 1 each PO DAILY 08/15/20 08/15/20 Unknown History [Ezetimibe-Simvastatin 10-20 mg] Famotidine [Pepcid] 40 mg PO DAILY 08/15/20 08/15/20 Unknown History Furosemide [Lasix] 40 mg PO BID 08/15/20 08/15/20 Unknown History HYDROcodone/APAP 5-325 [[place] 1 each PO Q6HR PRN 08/15/20 08/15/20 Unknown History 5/325] Linagliptin [Tradjenta] 5 mg PO QDAY 08/15/20 08/15/20 Unknown History Omeprazole 40 mg PO DAILY 08/15/20 08/15/20 Unknown History Potassium Chloride [K-Dur] 20 meq PO BID 08/15/20 08/15/20 Unknown History Valsartan [Diovan] 160 mg PO QDAY 08/15/20 08/15/20 Unknown History allopurinoL [Zyloprim] 200 mg PO DAILY 08/15/20 08/15/20 Unknown History carvediloL [Coreg] 3.125 mg PO BID 08/15/20 08/15/20 Unknown History Albuterol Sulfate [Proair 90 mcg INHALATION Q4H PRN 08/17/20 08/17/20 Unknown History Digihaler] Spiriva 2.5 mcg INHALATION DAILY 08/17/20 08/17/20 Unknown History Symbicort 160-4.5 Mcg Inhaler 160 mcg INHALATION BID 08/17/20 08/17/20 Unknown History Active Medications: Generic Name Dose Route Start Last Admin Trade Name Freq PRN Reason Stop Dose Admin Acetaminophen 650 mg 08/15/20 22:16 08/19/20 01:17 Acetaminophen 325 Mg Tab PO 650 mg Q4H PRN Administration Pain MILD(1-3)/Fever >100.5/TELLO Hydrocodone Bitart/Acetaminophen 1 each 08/15/20 22:06 08/23/20 17:22 Hydrocodone/Acetaminophen 5-325 Mg Tab PO 1 each Q6HR PRN Administration Pain, Moderate (4-6) Albuterol 2.5 mg 08/27/20 00:38 Albuterol 2.5 Mg/3 Ml Nebu IH 09/26/20 00:36 Q6HRT PRN Shortness Of Breath Apixaban 5 mg 08/24/20 11:00 08/29/20 10:03 Apixaban 5 Mg Tab PO 5 mg Q12HR SYLVAIN Administration Protocol Ascorbic Acid 1,000 mg 08/15/20 23:00 08/29/20 10:03 Ascorbic Acid 500 Mg Tab PO 1,000 mg BID SYLVAIN Administration Benzonatate 100 mg 08/25/20 14:00 08/29/20 05:43 Benzonatate 100 Mg Cap PO 100 mg Q8HR SYLVAIN Administration Calcitriol 0.25 mcg 08/18/20 10:00 08/29/20 10:03 Calcitriol 0.25 Mcg Cap PO 0.25 mcg QDAY SYLVAIN Administration Dexamethasone 6 mg 08/26/20 15:00 08/29/20 10:04 Dexamethasone 4 Mg/Ml Vial IV 08/31/20 14:59 6 mg DAILY SYLVAIN Administration Dextrose 25 ml 08/27/20 08:08 Dextrose 50% In Water (25gm) 50 Ml Syringe IV Q30MIN PRN HYPOGLYCEMIA Protocol Ezetimibe 10 mg 08/16/20 10:00 08/29/20 10:03 Ezetimibe 10 Mg Tab PO 10 mg DAILY SYLVAIN Administration Hydromorphone HCl 0.5 mg 08/15/20 22:16 Hydromorphone 1 Mg/1 Ml Inj IV Q3H PRN Pain , Severe (7-10) Sodium Chloride 100 mls @ 999 mls/hr 08/24/20 08:20 Nacl 0.9% IV SARAI PRN Hypotension Insulin Glargine 35 units 08/26/20 08:30 08/29/20 10:05 Insulin Glargine 100 Units/Ml SUB-Q 35 units BID SYLVAIN Administration Insulin Human Lispro 0 unit 08/18/20 13:23 08/29/20 08:30 Insulin Lispro 100 Unit/Ml SUB-Q 3 unit ACHS SYLVAIN Administration Protocol Linagliptin 5 mg 08/16/20 10:00 08/29/20 10:04 Linagliptin 5 Mg Tab PO 5 mg QDAY SYLVAIN Administration Metoclopramide HCl 5 mg 08/15/20 22:37 Metoclopramide 10 Mg/2 Ml Inj IV Q6H PRN Nausea And Vomiting Multivit/Ca Carb/B Cmplx/FA/Prenat 1 cap 08/18/20 10:00 08/29/20 10:03 Folic Acid/Vit B Comp W-C 1 Mg (Renal Caps) PO 1 cap DAILY SYLVAIN Administration Nystatin 400,000 unit 08/26/20 18:24 08/29/20 10:03 Nystatin 500,000 Unit/5 Ml Oral Liqd PO 400,000 unit TID SYLVAIN Administration Ondansetron HCl 4 mg 08/15/20 22:16 Ondansetron 4 Mg/2 Ml Inj IV Q8H PRN Nausea And Vomiting Oxycodone/Acetaminophen 1 tab 08/15/20 22:16 08/18/20 09:58 Oxycodone /Acetaminophen 5-325mg Tab PO 1 tab Q6H PRN Administration Pain, Moderate (4-6) Pantoprazole Sodium 40 mg 08/16/20 10:00 08/29/20 10:03 Pantoprazole 40 Mg Tab PO 40 mg DAILY SYLVAIN Administration Pravastatin Sodium 40 mg 08/16/20 10:00 08/29/20 10:03 Pravastatin 40 Mg Tab PO 40 mg DAILY SYLVAIN Administration Pseudoephedrine/Acetam/Chlorphenir 10 ml 08/18/20 10:30 08/23/20 17:21 Guaifenesin/Codeine 100-10mg Oral Liqd 5 Ml PO 10 ml Q4H PRN Administration Cough Sodium Chloride 10 ml 08/15/20 23:00 08/29/20 10:04 Sodium Chloride 0.9% 10 Ml Flush Syringe IV 10 ml BID SYLVAIN Administration Sodium Chloride 10 ml 08/15/20 22:16 Sodium Chloride 0.9% 10 Ml Flush Syringe IV PRN PRN LINE FLUSH Zinc Sulfate 220 mg 08/15/20 23:00 08/29/20 10:03 Zinc Sulfate 220 Mg Cap PO 220 mg BID SYLVAIN Administration
--- NOTE | 2020-08-29 12:44 | Progress Note ---
Assessment and Plan Cultures: SARS CoV2 PCR: positive 08/15/2020 blood culture: No growth 08/17/2020 urine culture: Skin fay A/P: 64-year-old female with hypertension, diabetes, COPD, prior CVA, CKD was admitted to the hospital with cough and shortness of breath along with wheezing and headache going on for almost a month: #Bilateral pneumonia: secondary to COVID-19. Test was positive as outpatient as well. Symptomatic for a month. s/p empiric abx. Given prolonged symptoms and renal failure, unlikely to benefit from Remdesivir #Acute hypoxic respiratory failure: on HFNC. #ANGELIQUE on CKD: On intermittent HD per nephrology. #Mild transaminitis: Probably from COVID-19. Hepatitis panel negative. Resolved. #Leukocytosis: Likely secondary to steroids. Recs: -continue steroids, completed higher dose -s/p abx -on prophylactic anticoagulation per hospital protocol due elevated d-dimer Ryder Sparks MD [facility] ([facility] O: [phone] F: [phone] Subjective Date of service: 08/29/20 Principal diagnosis: Acute respiratory failure with hypoxia, ANGELIQUE superimposed onCKD, Covid pneum Interval history: Afebrile, white count elevated at 19, last checked on 08/25/2020. Cultures are remain negative. She is requiring high flow nasal cannula. Objective - Exam Narrative Exam: Physical exam deferred due to PPE conservation strategy. Please refer to primary team's note. - Constitutional Vitals: Vital Signs Temp Pulse Resp BP Pulse Ox 97.5 F L 68 18 124/70 98 08/29/20 04:21 08/29/20 04:21 08/29/20 04:21 08/29/20 04:21 08/29/20 08:00 Temperature -Last 24 Hours Temperature 97.5 F Temperature 97.7 F Temperature 98.1 F Temperature 98.0 F - Labs CBC & Chem 7: 08/25/20 08:14 08/29/20 06:42 Labs: Abnormal lab results 08/28/20 08/28/20 08/29/20 Range/Units 16:28 21:44 06:42 Sodium 135 L (137-145) mmol/L Chloride 95.9 L (98-107) mmol/L BUN 72 H (7-17) mg/dL Creatinine 8.0 H (0.6-1.2) mg/dL Glucose 236 H (65-100) mg/dL POC Glucose 268 H 282 H (70-105) mg/dL Calcium 7.9 L (8.4-10.2) mg/dL 08/29/20 08/29/20 Range/Units 08:18 11:14 Sodium (137-145) mmol/L Chloride (98-107) mmol/L BUN (7-17) mg/dL Creatinine (0.6-1.2) mg/dL Glucose (65-100) mg/dL POC Glucose 172 H 206 H (70-105) mg/dL Calcium (8.4-10.2) mg/dL
--- NOTE | 2020-08-29 15:28 | Progress Note ---
Assessment and Plan 08/29 hypoxia vol overload copd/asthma renal fail HD P: continue dialysi wean 02 as terra f/up cxr Subjective Date of service: 08/29/20 Principal diagnosis: Acute respiratory failure with hypoxia, ANGELIQUE superimposed onCKD, Covid pneum Interval history: 08/29 f/up improving clinically Objective - Constitutional Vitals: Vital Signs - 12hr 08/29/20 08/29/20 08/29/20 04:21 06:05 08:00 Temperature 97.5 F L Pulse Rate 68 Respiratory 18 Rate Blood Pressure Blood Pressure 124/70 [Right] O2 Sat by Pulse 98 96 98 Oximetry 08/29/20 08/29/20 08/29/20 11:17 11:18 12:00 Temperature 97.2 F L 97.2 F L Pulse Rate 68 Respiratory 18 Rate Blood Pressure 117/51 Blood Pressure [Right] O2 Sat by Pulse Oximetry General appearance: Present: no acute distress, obese - Respiratory Respiratory: negative: diminished, rales (scatt) - Cardiovascular Rhythm: regular Extremity abnormal: edema (min) - Neurologic Neurologic: CNII-XII intact - Psychiatric Psychiatric: appropriate mood/affect - Labs CBC & Chem 7: 08/25/20 08:14 08/29/20 06:42 Labs: Abnormal lab results 08/28/20 08/28/20 08/29/20 Range/Units 16:28 21:44 06:42 Sodium 135 L (137-145) mmol/L Chloride 95.9 L (98-107) mmol/L BUN 72 H (7-17) mg/dL Creatinine 8.0 H (0.6-1.2) mg/dL Glucose 236 H (65-100) mg/dL POC Glucose 268 H 282 H (70-105) mg/dL Calcium 7.9 L (8.4-10.2) mg/dL 08/29/20 08/29/20 Range/Units 08:18 11:14 Sodium (137-145) mmol/L Chloride (98-107) mmol/L BUN (7-17) mg/dL Creatinine (0.6-1.2) mg/dL Glucose (65-100) mg/dL POC Glucose 172 H 206 H (70-105) mg/dL Calcium (8.4-10.2) mg/dL - Imaging and cardiology Chest x-ray: report reviewed, image reviewed CT scan - chest: report reviewed, image reviewed Medications & Allergies - Medications Allergies/Adverse Reactions: Allergies gabapentin [From Neurontin] Allergy (Verified 08/15/20 17:25) Unknown rosuvastatin calcium [From Crestor] Allergy (Verified 08/15/20 17:25) Rash fluticasone propionate [From Advair Diskus] Adverse Reaction (Verified 08/15/20 17:25) Headache salmeterol xinafoate [From Advair Diskus] Adverse Reaction (Verified 08/15/20 17:25) Headache IV DYE Allergy (Uncoded 08/24/20 10:28) Itching Home Medications: Home Medications Medication Instructions Recorded Confirmed Last Taken Type Colchicine [Colcrys] 0.6 mg PO DAILY 08/15/20 08/15/20 Unknown History Cyanocobalamin (Vitamin B-12) 1,000 mcg IJ QMONTH 08/15/20 08/15/20 Unknown History [Physicians Ez Use B-12] Ergocalciferol [Vitamin D2] 1 cap PO QWEEK 08/15/20 08/15/20 Unknown History Ezetimibe/Simvastatin 1 each PO DAILY 08/15/20 08/15/20 Unknown History [Ezetimibe-Simvastatin 10-20 mg] Famotidine [Pepcid] 40 mg PO DAILY 08/15/20 08/15/20 Unknown History Furosemide [Lasix] 40 mg PO BID 08/15/20 08/15/20 Unknown History HYDROcodone/APAP 5-325 [[place] 1 each PO Q6HR PRN 08/15/20 08/15/20 Unknown History 5/325] Linagliptin [Tradjenta] 5 mg PO QDAY 08/15/20 08/15/20 Unknown History Omeprazole 40 mg PO DAILY 08/15/20 08/15/20 Unknown History Potassium Chloride [K-Dur] 20 meq PO BID 08/15/20 08/15/20 Unknown History Valsartan [Diovan] 160 mg PO QDAY 08/15/20 08/15/20 Unknown History allopurinoL [Zyloprim] 200 mg PO DAILY 08/15/20 08/15/20 Unknown History carvediloL [Coreg] 3.125 mg PO BID 08/15/20 08/15/20 Unknown History Albuterol Sulfate [Proair 90 mcg INHALATION Q4H PRN 08/17/20 08/17/20 Unknown History Digihaler] Spiriva 2.5 mcg INHALATION DAILY 08/17/20 08/17/20 Unknown History Symbicort 160-4.5 Mcg Inhaler 160 mcg INHALATION BID 08/17/20 08/17/20 Unknown History Active Medications: Generic Name Dose Route Start Last Admin Trade Name Freq PRN Reason Stop Dose Admin Acetaminophen 650 mg 08/15/20 22:16 08/19/20 01:17 Acetaminophen 325 Mg Tab PO 650 mg Q4H PRN Administration Pain MILD(1-3)/Fever >100.5/TELLO Hydrocodone Bitart/Acetaminophen 1 each 08/15/20 22:06 08/23/20 17:22 Hydrocodone/Acetaminophen 5-325 Mg Tab PO 1 each Q6HR PRN Administration Pain, Moderate (4-6) Albuterol 2.5 mg 08/27/20 00:38 Albuterol 2.5 Mg/3 Ml Nebu IH 09/26/20 00:36 Q6HRT PRN Shortness Of Breath Apixaban 5 mg 08/24/20 11:00 08/29/20 10:03 Apixaban 5 Mg Tab PO 5 mg Q12HR SYLVAIN Administration Protocol Ascorbic Acid 1,000 mg 08/15/20 23:00 08/29/20 10:03 Ascorbic Acid 500 Mg Tab PO 1,000 mg BID SYLVAIN Administration Benzonatate 100 mg 08/25/20 14:00 08/29/20 15:14 Benzonatate 100 Mg Cap PO 100 mg Q8HR SYLVAIN Administration Calcitriol 0.25 mcg 08/18/20 10:00 08/29/20 10:03 Calcitriol 0.25 Mcg Cap PO 0.25 mcg QDAY SYLVAIN Administration Dexamethasone 6 mg 08/26/20 15:00 08/29/20 10:04 Dexamethasone 4 Mg/Ml Vial IV 08/31/20 14:59 6 mg DAILY SYLVAIN Administration Dextrose 25 ml 08/27/20 08:08 Dextrose 50% In Water (25gm) 50 Ml Syringe IV Q30MIN PRN HYPOGLYCEMIA Protocol Ezetimibe 10 mg 08/16/20 10:00 08/29/20 10:03 Ezetimibe 10 Mg Tab PO 10 mg DAILY SYLVAIN Administration Hydromorphone HCl 0.5 mg 08/15/20 22:16 Hydromorphone 1 Mg/1 Ml Inj IV Q3H PRN Pain , Severe (7-10) Sodium Chloride 100 mls @ 999 mls/hr 08/24/20 08:20 Nacl 0.9% IV SARAI PRN Hypotension Insulin Glargine 35 units 08/26/20 08:30 08/29/20 10:05 Insulin Glargine 100 Units/Ml SUB-Q 35 units BID SYLVAIN Administration Insulin Human Lispro 0 unit 08/18/20 13:23 08/29/20 12:42 Insulin Lispro 100 Unit/Ml SUB-Q 4 unit ACHS SYLVAIN Administration Protocol Linagliptin 5 mg 08/16/20 10:00 08/29/20 10:04 Linagliptin 5 Mg Tab PO 5 mg QDAY SYLVAIN Administration Metoclopramide HCl 5 mg 08/15/20 22:37 Metoclopramide 10 Mg/2 Ml Inj IV Q6H PRN Nausea And Vomiting Multivit/Ca Carb/B Cmplx/FA/Prenat 1 cap 08/18/20 10:00 08/29/20 10:03 Folic Acid/Vit B Comp W-C 1 Mg (Renal Caps) PO 1 cap DAILY SYLVAIN Administration Nystatin 400,000 unit 08/26/20 18:24 08/29/20 15:14 Nystatin 500,000 Unit/5 Ml Oral Liqd PO 400,000 unit TID SYLVAIN Administration Ondansetron HCl 4 mg 08/15/20 22:16 Ondansetron 4 Mg/2 Ml Inj IV Q8H PRN Nausea And Vomiting Oxycodone/Acetaminophen 1 tab 08/15/20 22:16 08/18/20 09:58 Oxycodone /Acetaminophen 5-325mg Tab PO 1 tab Q6H PRN Administration Pain, Moderate (4-6) Pantoprazole Sodium 40 mg 08/16/20 10:00 08/29/20 10:03 Pantoprazole 40 Mg Tab PO 40 mg DAILY SYLVAIN Administration Pravastatin Sodium 40 mg 08/16/20 10:00 08/29/20 10:03 Pravastatin 40 Mg Tab PO 40 mg DAILY SYLVAIN Administration Pseudoephedrine/Acetam/Chlorphenir 10 ml 08/18/20 10:30 08/23/20 17:21 Guaifenesin/Codeine 100-10mg Oral Liqd 5 Ml PO 10 ml Q4H PRN Administration Cough Sodium Chloride 10 ml 08/15/20 23:00 08/29/20 10:04 Sodium Chloride 0.9% 10 Ml Flush Syringe IV 10 ml BID SYLVAIN Administration Sodium Chloride 10 ml 08/15/20 22:16 Sodium Chloride 0.9% 10 Ml Flush Syringe IV PRN PRN LINE FLUSH Zinc Sulfate 220 mg 08/15/20 23:00 08/29/20 10:03 Zinc Sulfate 220 Mg Cap PO 220 mg BID SYLVAIN Administration
[2020-08-30] MEDS: INSULIN GLARGINE 100 UNITS/ML SUB-Q SCH ×3 (00:18→22:09)
[2020-08-30] MEDS: INSULIN LISPRO 100 UNIT/ML SUB-Q SCH ×5 (00:19→22:10)
[2020-08-30] MEDS: BENZONATATE 100 MG CAP PO SCH ×3 (05:48→21:14)
[2020-08-30] MEDS: NYSTATIN 500,000 UNIT/5 ML ORAL LIQD PO SCH ×3 (08:20→20:17)
--- NOTE | 2020-08-30 08:25 | XRay Report ---
CHEST 1 VIEW INDICATION / CLINICAL INFORMATION: Follow up pneumonia. COMPARISON: 08/24/2020 FINDINGS: SUPPORT DEVICES: Central line stable in position. HEART / MEDIASTINUM: No significant abnormality. LUNGS / PLEURA: Previously noted bilateral pulmonary opacities persist not appreciably changed. No si gnificant pleural effusion. No pneumothorax. ADDITIONAL FINDINGS: No significant additional findings. IMPRESSION: 1. Mild bilateral pulmonary opacities are stable. Signer Name: Daja Bolanos MD Signed: 08/30/2020 8:20 AM Workstation Name: [id number]
[2020-08-30] MEDS: PRAVASTATIN 40 MG TAB PO SCH (09:43)
[2020-08-30] MEDS: dexAMETHasone 4 MG/ML VIAL IV SCH (09:43)
[2020-08-30] MEDS: ASCORBIC ACID 500 MG TAB PO SCH ×2 (09:43→21:15)
[2020-08-30] MEDS: ZINC SULFATE 220 MG CAP PO SCH ×2 (09:43→21:14)
[2020-08-30] MEDS: APIXABAN 5 MG TAB PO SCH ×2 (09:43→21:14)
[2020-08-30] MEDS: EZETIMIBE 10 MG TAB PO SCH (09:44)
[2020-08-30] MEDS: FOLIC ACID/VIT B COMP W-C 1 MG (RENAL CAPS) PO SCH (09:44)
[2020-08-30] MEDS: CALCITRIOL 0.25 MCG CAP PO SCH (09:44)
[2020-08-30] MEDS: PANTOPRAZOLE 40 MG TAB PO SCH (09:44)
[2020-08-30] MEDS: LINAGLIPTIN 5 MG TAB PO SCH (09:45)
--- NOTE | 2020-08-30 10:13 | Progress Note ---
Assessment and Plan Impression: #Acute kidney injury: She was initially on daily dialysis and was then transitioned to intermittent dialysis. #Has underlying chronic kidney disease her baseline creatinine is around 1.7-1.[address] Rivers's office #Respiratory failure resulting from Covid 19 pneumonia + fluid overload- being followed by pulmonary service. UF with HD as tolerated. Limit fluid intake to 1L/d #Covid 19 viral pneumonia with ARDS like picture, patient has multiorgan failure Plan: #HD MWF #she will need ongoing renal replacement therapy as tolerated for now. Monitor labs and I/O daily. # Keep MAP> 65 # Renally dose medications # Renal diet arrange outpatient hd placement Subjective Date of service: 08/30/20 Principal diagnosis: Acute respiratory failure with hypoxia, ANGELIQUE superimposed onCKD, Covid pneum Interval history: Subjective Date of service: 08/28/20 Principal diagnosis: Acute respiratory failure with hypoxia, ANGELIQUE superimposed onCKD, Covid pneum Interval history: Patient was seen for her renal issues Nursing, interdisciplinary and consult notes were reviewed Vitals, input and output, medications and labs were reviewed Objective - Exam Narrative Exam: deferred for preservation of ppe Objective - Vital Signs Vital signs: Vital Signs - 12hr 08/29/20 08/29/20 08/29/20 22:15 22:30 22:45 Temperature Pulse Rate 126 H 118 H 123 H Respiratory Rate Blood Pressure 119/66 118/69 121/63 O2 Sat by Pulse Oximetry O2 Sat by Pulse Oximetry [ Anterior Bilateral Throughout] 08/29/20 08/29/20 08/29/20 23:00 23:30 23:58 Temperature 97.8 F Pulse Rate 118 H 126 H 105 H Respiratory 16 Rate Blood Pressure 125/70 95/72 102/61 O2 Sat by Pulse 98 Oximetry O2 Sat by Pulse Oximetry [ Anterior Bilateral Throughout] 08/30/20 08/30/20 08/30/20 00:01 04:19 09:30 Temperature 98.2 F 97.9 F Pulse Rate 102 H 109 H Respiratory 20 15 Rate Blood Pressure 121/65 86/59 O2 Sat by Pulse 96 97 Oximetry O2 Sat by Pulse 100 Oximetry [ Anterior Bilateral Throughout] - Lab 08/25/20 08:14 08/29/20 06:42 Most recent lab results Calcium 7.9 mg/dL (8.4-10.2) L 08/29/20 06:42 Phosphorus 5.90 mg/dL (2.5-4.5) H 08/17/20 09:35 Urine Creatinine 248.0 mg/dL (0.1-20.0) H 08/17/20 17:45 Urine Total Protein 196 mg/dL (5-11.8) H 08/17/20 17:45 Medications & Allergies - Medications Allergies/Adverse Reactions: Allergies gabapentin [From Neurontin] Allergy (Verified 08/15/20 17:25) Unknown rosuvastatin calcium [From Crestor] Allergy (Verified 08/15/20 17:25) Rash fluticasone propionate [From Advair Diskus] Adverse Reaction (Verified 08/15/20 17:25) Headache salmeterol xinafoate [From Advair Diskus] Adverse Reaction (Verified 08/15/20 17:25) Headache IV DYE Allergy (Uncoded 08/24/20 10:28) Itching Home Medications: Home Medications Medication Instructions Recorded Confirmed Last Taken Type Colchicine [Colcrys] 0.6 mg PO DAILY 08/15/20 08/15/20 Unknown History Cyanocobalamin (Vitamin B-12) 1,000 mcg IJ QMONTH 08/15/20 08/15/20 Unknown History [Physicians Ez Use B-12] Ergocalciferol [Vitamin D2] 1 cap PO QWEEK 08/15/20 08/15/20 Unknown History Ezetimibe/Simvastatin 1 each PO DAILY 08/15/20 08/15/20 Unknown History [Ezetimibe-Simvastatin 10-20 mg] Famotidine [Pepcid] 40 mg PO DAILY 08/15/20 08/15/20 Unknown History Furosemide [Lasix] 40 mg PO BID 08/15/20 08/15/20 Unknown History HYDROcodone/APAP 5-325 [[place] 1 each PO Q6HR PRN 08/15/20 08/15/20 Unknown History 5/325] Linagliptin [Tradjenta] 5 mg PO QDAY 08/15/20 08/15/20 Unknown History Omeprazole 40 mg PO DAILY 08/15/20 08/15/20 Unknown History Potassium Chloride [K-Dur] 20 meq PO BID 08/15/20 08/15/20 Unknown History Valsartan [Diovan] 160 mg PO QDAY 08/15/20 08/15/20 Unknown History allopurinoL [Zyloprim] 200 mg PO DAILY 08/15/20 08/15/20 Unknown History carvediloL [Coreg] 3.125 mg PO BID 08/15/20 08/15/20 Unknown History Albuterol Sulfate [Proair 90 mcg INHALATION Q4H PRN 08/17/20 08/17/20 Unknown History Digihaler] Spiriva 2.5 mcg INHALATION DAILY 08/17/20 08/17/20 Unknown History Symbicort 160-4.5 Mcg Inhaler 160 mcg INHALATION BID 08/17/20 08/17/20 Unknown History Active Medications: Generic Name Dose Route Start Last Admin Trade Name Freq PRN Reason Stop Dose Admin Acetaminophen 650 mg 08/15/20 22:16 08/19/20 01:17 Acetaminophen 325 Mg Tab PO 650 mg Q4H PRN Administration Pain MILD(1-3)/Fever >100.5/TELLO Hydrocodone Bitart/Acetaminophen 1 each 08/15/20 22:06 08/23/20 17:22 Hydrocodone/Acetaminophen 5-325 Mg Tab PO 1 each Q6HR PRN Administration Pain, Moderate (4-6) Albuterol 2.5 mg 08/27/20 00:38 Albuterol 2.5 Mg/3 Ml Nebu IH 09/26/20 00:36 Q6HRT PRN Shortness Of Breath Apixaban 5 mg 08/24/20 11:00 08/30/20 09:43 Apixaban 5 Mg Tab PO 5 mg Q12HR SYLVAIN Administration Protocol Ascorbic Acid 1,000 mg 08/15/20 23:00 08/30/20 09:43 Ascorbic Acid 500 Mg Tab PO 1,000 mg BID SYLVAIN Administration Benzonatate 100 mg 08/25/20 14:00 08/30/20 05:48 Benzonatate 100 Mg Cap PO 100 mg Q8HR SYLVAIN Administration Calcitriol 0.25 mcg 08/18/20 10:00 08/30/20 09:44 Calcitriol 0.25 Mcg Cap PO 0.25 mcg QDAY SYLVAIN Administration Dexamethasone 6 mg 08/26/20 15:00 08/30/20 09:43 Dexamethasone 4 Mg/Ml Vial IV 08/31/20 14:59 6 mg DAILY SYLVAIN Administration Dextrose 25 ml 08/27/20 08:08 Dextrose 50% In Water (25gm) 50 Ml Syringe IV Q30MIN PRN HYPOGLYCEMIA Protocol Ezetimibe 10 mg 08/16/20 10:00 08/30/20 09:44 Ezetimibe 10 Mg Tab PO 10 mg DAILY SYLVAIN Administration Hydromorphone HCl 0.5 mg 08/15/20 22:16 Hydromorphone 1 Mg/1 Ml Inj IV Q3H PRN Pain , Severe (7-10) Sodium Chloride 100 mls @ 999 mls/hr 08/24/20 08:20 Nacl 0.9% IV SARAI PRN Hypotension Insulin Glargine 35 units 08/26/20 08:30 08/30/20 00:18 Insulin Glargine 100 Units/Ml SUB-Q 35 units BID SYLVAIN Administration Insulin Human Lispro 0 unit 08/18/20 13:23 08/30/20 08:21 Insulin Lispro 100 Unit/Ml SUB-Q Not Given ACHS SYLVAIN Protocol Linagliptin 5 mg 08/16/20 10:00 08/30/20 09:45 Linagliptin 5 Mg Tab PO 5 mg QDAY SYLVAIN Administration Metoclopramide HCl 5 mg 08/15/20 22:37 Metoclopramide 10 Mg/2 Ml Inj IV Q6H PRN Nausea And Vomiting Multivit/Ca Carb/B Cmplx/FA/Prenat 1 cap 08/18/20 10:00 08/30/20 09:44 Folic Acid/Vit B Comp W-C 1 Mg (Renal Caps) PO 1 cap DAILY SYLVAIN Administration Nystatin 400,000 unit 08/26/20 18:24 08/30/20 08:20 Nystatin 500,000 Unit/5 Ml Oral Liqd PO 400,000 unit TID SYLVAIN Administration Ondansetron HCl 4 mg 08/15/20 22:16 Ondansetron 4 Mg/2 Ml Inj IV Q8H PRN Nausea And Vomiting Oxycodone/Acetaminophen 1 tab 08/15/20 22:16 08/18/20 09:58 Oxycodone /Acetaminophen 5-325mg Tab PO 1 tab Q6H PRN Administration Pain, Moderate (4-6) Pantoprazole Sodium 40 mg 08/16/20 10:00 08/30/20 09:44 Pantoprazole 40 Mg Tab PO 40 mg DAILY SYLVAIN Administration Pravastatin Sodium 40 mg 08/16/20 10:00 08/30/20 09:43 Pravastatin 40 Mg Tab PO 40 mg DAILY SYLVAIN Administration Pseudoephedrine/Acetam/Chlorphenir 10 ml 08/18/20 10:30 08/23/20 17:21 Guaifenesin/Codeine 100-10mg Oral Liqd 5 Ml PO 10 ml Q4H PRN Administration Cough Sodium Chloride 10 ml 08/15/20 23:00 08/30/20 09:45 Sodium Chloride 0.9% 10 Ml Flush Syringe IV 10 ml BID SYLVAIN Administration Sodium Chloride 10 ml 08/15/20 22:16 Sodium Chloride 0.9% 10 Ml Flush Syringe IV PRN PRN LINE FLUSH Zinc Sulfate 220 mg 08/15/20 23:00 08/30/20 09:43 Zinc Sulfate 220 Mg Cap PO 220 mg BID SYLVAIN Administration
--- NOTE | 2020-08-30 10:44 | Progress Note ---
Assessment and Plan Cultures: SARS CoV2 PCR: positive 08/15/2020 blood culture: No growth 08/17/2020 urine culture: Skin fay A/P: 64-year-old female with hypertension, diabetes, COPD, prior CVA, CKD was admitted to the hospital with cough and shortness of breath along with wheezing and headache going on for almost a month: #Bilateral pneumonia: secondary to COVID-19. Test was positive as outpatient as well. Symptomatic for a month. s/p empiric abx. Given prolonged symptoms and renal failure, unlikely to benefit from Remdesivir #Acute hypoxic respiratory failure: on HFNC. #ANGELIQUE on CKD: On intermittent HD per nephrology. #Mild transaminitis: Probably from COVID-19. Hepatitis panel negative. Resolved. #Leukocytosis: Likely secondary to steroids. Recs: -continue steroids, completed higher dose -s/p abx -on prophylactic anticoagulation per hospital protocol due elevated d-dimer Ryder Sparks MD [facility] ([facility] O: [phone] F: [phone] Subjective Date of service: 08/30/20 Principal diagnosis: Acute respiratory failure with hypoxia, ANGELIQUE superimposed onCKD, Covid pneum Interval history: Afebrile, no acute changes. On 5L NC. Imaging personally reviewed: CXR: stable mild pulmonary opacities Objective - Exam Narrative Exam: Physical exam deferred due to PPE conservation strategy. Please refer to primary team's note. - Constitutional Vitals: Vital Signs Temp Pulse Resp BP Pulse Ox 97.9 F 109 H 15 86/59 97 08/30/20 04:19 08/30/20 04:19 08/30/20 04:19 08/30/20 04:19 08/30/20 09:30 Temperature -Last 24 Hours Temperature 97.9 F Temperature 98.2 F Temperature 97.8 F Temperature 97.9 F Temperature 97.2 F Temperature 97.2 F - Labs CBC & Chem 7: 08/25/20 08:14 08/29/20 06:42 Labs: Abnormal lab results 08/29/20 08/29/20 08/30/20 Range/Units 11:14 16:23 00:02 POC Glucose 206 H 242 H 220 H (70-105) mg/dL
--- NOTE | 2020-08-30 12:11 | Progress Note ---
Assessment and Plan 64 y/o female with acute respiratory failure thought secondary to COVID, found to be positive 08/30/20: Continue to wean FiO2 as tolerated. Hd per renal. Will continue to follow up. 08/28/20: Continue to wean FiO2 as tolerated. HD per renal. Proning if able. Prognosis remains guarded but promising given reduction in oxygen 08/27/20: Continue to wean FiO2 as tolerated. HD per renal. Prone as tolerated. Guarded prognosis. 08/25/20: Empirically started on anticoags, monitor renal function and coags and hgb. LAst day of steroids, however may need to extend out if oxygen requirement doesn't improve with continued HD and volume removal. Encourage to prone or some variation of this. Guarded prognosis. 08/24/20: Markers remain elevated. IMS concerned about clot. dopplers negative so they have cleared with renal for CTA. Oxygenation not worse and I am not sure how aggressive weaning has been. Will attempt to do better today. HD per renal. Continue high dose steroids. Guarded prognosis. 08/23/20: Agree with HD again today. Wean FiO2 for sats >88% and patient comfort. Continue steroids at current dosing. Lantus for sugars. Will observe on HD again today. If anything, and a bed is needed, can transfer to step down. 08/22/20: HD per renal. Patient has questions about why she is requiring HD, please address with her if possible. Hopeful she will have several HD sessions back to back as I feel a lot of her most recent decline is from volume. COntinue High dose steroids but will extend out to 10 days. Increase lantus to help with sugars. Can likely be transferred to step down or back to the floor. 08/19/20: Ordered PICC line for use during HD if patient requires vasopressors. Most likely increase in oxygen secondary to volume from lack of appropriate HD secondary to hypotension. Will give a couple amps of bicarb to see if this will help with blood pressure and can wills off pressor use. Continue steroids. Agree with ID on increasing the dose. Guarded prognosis 08/18/20: Prone as tolerated during day and sleep prone at night. Continue supplemental O2. Steroids for 10 days. Hold on nebs. Needs RT consult for documentation of oxygen therapy and requirements. 08/17/20: Found to be positive. Same recs as yesterday. Likely not a candidate for remdesivir given renal function. No nebulizer therapy, only inhaler therapy if and when needed. Continue supplemental O2 and proning is mcknight. Guarded prognosis given renal failure. 1. Follow up covid testing 2. Ok with current steroids 3. If patient brought in home inhalers, please allow pharmacy to verify and use them, no neb treatments 4. Prone during the day and and sleep prone at night as tolerated. Guarded prognosis. Subjective Date of service: 08/30/20 Principal diagnosis: Acute respiratory failure with hypoxia, ANGELIQUE superimposed onCKD, Covid pneum Interval history: No acute events. Down to 5 liters. Objective Vital Signs - 12hr 08/30/20 08/30/20 08/30/20 04:19 09:30 10:55 Temperature 97.9 F 98.0 F Pulse Rate 109 H Respiratory 15 22 Rate Blood Pressure 86/59 130/97 O2 Sat by Pulse 96 97 Oximetry Constitutional: alert, other (obese, critically ill on ventilator) Eyes: non-icteric ENT: oropharynx moist Neck: supple Effort: normal Ascultation: Bilateral: diminished breath sounds Cardiovascular: regular rate and rhythm (no mrg) Gastrointestinal: normoactive bowel sounds, soft, non-tender, non-distended Integumentary: normal Extremities: no cyanosis, no edema Neurologic: normal mental status, non-focal exam Psychiatric: mood appropriate, affect normal CBC and BMP: 08/25/20 08:14 08/29/20 06:42 ABG, PT/INR, D-dimer: PT/INR, D-dimer D-Dimer > 43255 ng/mlDDU (0-234) H 08/23/20 14:07 Abnormal lab findings: Abnormal Labs 08/15/20 08/15/20 08/15/20 17:01 17:01 17:01 WBC RBC Hgb Hct MCH RDW 15.8 H Lymph % (Auto) 7.4 L Lymph # (Auto) 0.7 L Seg Neutrophils % 85.1 H Seg Neuts % (Manual) Lymphocytes % (Manual) Seg Neutrophils # 7.9 H Lymphocytes # (Manual) D-Dimer 1750.12 H Sodium Potassium 5.1 H Chloride 97.1 L Carbon Dioxide BUN 67 H Creatinine 4.8 H Glucose 101 H POC Glucose Hemoglobin A1c Calcium Phosphorus Ferritin AST 53 H Lactate Dehydrogenase C-Reactive Protein Total Protein Albumin 3.4 L PTH Intact Ur Specific [place] Urine WBC (Auto) U Epithel Cells (Auto) Urine Creatinine Urine Total Protein Coronavirus (PCR) 08/15/20 08/15/20 08/15/20 17:01 17:01 17:01 WBC RBC Hgb Hct MCH RDW Lymph % (Auto) Lymph # (Auto) Seg Neutrophils % Seg Neuts % (Manual) Lymphocytes % (Manual) Seg Neutrophils # Lymphocytes # (Manual) D-Dimer Sodium Potassium Chloride Carbon Dioxide BUN Creatinine Glucose 101 H POC Glucose Hemoglobin A1c Calcium Phosphorus Ferritin 667.2 H AST Lactate Dehydrogenase 606 H 567 H C-Reactive Protein 4.60 H 6.30 H Total Protein Albumin PTH Intact Ur Specific [place] Urine WBC (Auto) U Epithel Cells (Auto) Urine Creatinine Urine Total Protein Coronavirus (PCR) 08/16/20 08/16/20 08/16/20 04:32 04:32 04:32 WBC RBC Hgb Hct MCH 27 L RDW 15.9 H Lymph % (Auto) 12.6 L Lymph # (Auto) 0.8 L Seg Neutrophils % 83.7 H Seg Neuts % (Manual) Lymphocytes % (Manual) Seg Neutrophils # Lymphocytes # (Manual) D-Dimer Sodium 136 L Potassium 6.7 H* D Chloride Carbon Dioxide BUN 78 H Creatinine 6.2 H Glucose 223 H POC Glucose Hemoglobin A1c 7.6 H Calcium 7.8 L Phosphorus Ferritin AST 47 H Lactate Dehydrogenase C-Reactive Protein Total Protein 5.8 L D Albumin 3.1 L PTH Intact Ur Specific [place] Urine WBC (Auto) U Epithel Cells (Auto) Urine Creatinine Urine Total Protein Coronavirus (PCR) 08/16/20 08/16/20 08/16/20 17:01 17:05 21:41 WBC RBC Hgb Hct MCH RDW Lymph % (Auto) Lymph # (Auto) Seg Neutrophils % Seg Neuts % (Manual) Lymphocytes % (Manual) Seg Neutrophils # Lymphocytes # (Manual) D-Dimer Sodium Potassium Chloride Carbon Dioxide BUN 93 H Creatinine 7.7 H Glucose 228 H POC Glucose 150 H 204 H Hemoglobin A1c Calcium Phosphorus Ferritin AST Lactate Dehydrogenase C-Reactive Protein Total Protein Albumin PTH Intact Ur Specific [place] Urine WBC (Auto) U Epithel Cells (Auto) Urine Creatinine Urine Total Protein Coronavirus (PCR) 08/16/20 08/17/20 08/17/20 Unknown 07:31 07:31 WBC RBC Hgb Hct MCH 27 L RDW 16.0 H Lymph % (Auto) 4.2 L Lymph # (Auto) 0.4 L Seg Neutrophils % 90.0 H Seg Neuts % (Manual) Lymphocytes % (Manual) Seg Neutrophils # 8.8 H Lymphocytes # (Manual) D-Dimer Sodium Potassium 5.8 H D Chloride Carbon Dioxide 20 L BUN 103 H Creatinine 9.0 H Glucose 219 H POC Glucose Hemoglobin A1c Calcium 7.9 L Phosphorus Ferritin AST Lactate Dehydrogenase C-Reactive Protein Total Protein Albumin PTH Intact Ur Specific [place] Urine WBC (Auto) U Epithel Cells (Auto) Urine Creatinine Urine Total Protein Coronavirus (PCR) Positive A 08/17/20 08/17/20 08/17/20 07:44 09:35 09:35 WBC RBC Hgb Hct MCH RDW Lymph % (Auto) Lymph # (Auto) Seg Neutrophils % Seg Neuts % (Manual) Lymphocytes % (Manual) Seg Neutrophils # Lymphocytes # (Manual) D-Dimer Sodium Potassium Chloride Carbon Dioxide BUN Creatinine Glucose POC Glucose 188 H Hemoglobin A1c Calcium Phosphorus 5.90 H Ferritin AST Lactate Dehydrogenase C-Reactive Protein Total Protein Albumin PTH Intact 452.6 H Ur Specific [place] Urine WBC (Auto) U Epithel Cells (Auto) Urine Creatinine Urine Total Protein Coronavirus (PCR) 08/17/20 08/17/20 08/17/20 11:23 16:38 17:45 WBC RBC Hgb Hct MCH RDW Lymph % (Auto) Lymph # (Auto) Seg Neutrophils % Seg Neuts % (Manual) Lymphocytes % (Manual) Seg Neutrophils # Lymphocytes # (Manual) D-Dimer Sodium Potassium Chloride Carbon Dioxide BUN Creatinine Glucose POC Glucose 205 H 212 H Hemoglobin A1c Calcium Phosphorus Ferritin AST Lactate Dehydrogenase C-Reactive Protein Total Protein Albumin PTH Intact Ur Specific [place] 1.039 H Urine WBC (Auto) 32.0 H U Epithel Cells (Auto) 44.0 H Urine Creatinine Urine Total Protein Coronavirus (PCR) 08/17/20 08/17/20 08/18/20 17:45 21:39 08:00 WBC RBC Hgb Hct MCH RDW Lymph % (Auto) Lymph # (Auto) Seg Neutrophils % Seg Neuts % (Manual) Lymphocytes % (Manual) Seg Neutrophils # Lymphocytes # (Manual) D-Dimer Sodium Potassium Chloride Carbon Dioxide BUN Creatinine Glucose POC Glucose 206 H 229 H Hemoglobin A1c Calcium Phosphorus Ferritin AST Lactate Dehydrogenase C-Reactive Protein Total Protein Albumin PTH Intact Ur Specific [place] Urine WBC (Auto) U Epithel Cells (Auto) Urine Creatinine 248.0 H Urine Total Protein 196 H Coronavirus (PCR) 08/18/20 08/18/20 08/18/20 08:36 08:36 11:00 WBC RBC 3.64 L Hgb 10.0 L Hct MCH RDW 15.8 H Lymph % (Auto) 5.9 L Lymph # (Auto) 0.5 L Seg Neutrophils % 87.3 H Seg Neuts % (Manual) Lymphocytes % (Manual) Seg Neutrophils # Lymphocytes # (Manual) D-Dimer Sodium 135 L D Potassium Chloride 95.8 L Carbon Dioxide 20 L BUN 84 H Creatinine 8.4 H Glucose 262 H POC Glucose 238 H Hemoglobin A1c Calcium 7.5 L Phosphorus Ferritin AST Lactate Dehydrogenase C-Reactive Protein Total Protein 6.1 L Albumin 2.5 L PTH Intact Ur Specific [place] Urine WBC (Auto) U Epithel Cells (Auto) Urine Creatinine Urine Total Protein Coronavirus (PCR) 08/18/20 08/18/20 08/19/20 16:14 21:52 04:23 WBC RBC 3.53 L Hgb 9.5 L Hct 30.0 L MCH 27 L RDW 15.6 H Lymph % (Auto) Lymph # (Auto) Seg Neutrophils % Seg Neuts % (Manual) 84.0 H Lymphocytes % (Manual) 9.0 L Seg Neutrophils # Lymphocytes # (Manual) 0.5 L D-Dimer Sodium Potassium Chloride Carbon Dioxide BUN Creatinine Glucose POC Glucose 248 H 303 H Hemoglobin A1c Calcium Phosphorus Ferritin AST Lactate Dehydrogenase C-Reactive Protein Total Protein Albumin PTH Intact Ur Specific [place] Urine WBC (Auto) U Epithel Cells (Auto) Urine Creatinine Urine Total Protein Coronavirus (PCR) 08/19/20 08/19/20 08/19/20 04:23 06:44 11:53 WBC RBC Hgb Hct MCH RDW Lymph % (Auto) Lymph # (Auto) Seg Neutrophils % Seg Neuts % (Manual) Lymphocytes % (Manual) Seg Neutrophils # Lymphocytes # (Manual) D-Dimer Sodium Potassium Chloride 97.2 L Carbon Dioxide BUN 86 H Creatinine 9.2 H Glucose 271 H POC Glucose 213 H 266 H Hemoglobin A1c Calcium 7.5 L Phosphorus Ferritin AST Lactate Dehydrogenase C-Reactive Protein Total Protein 5.8 L Albumin 2.5 L PTH Intact Ur Specific [place] Urine WBC (Auto) U Epithel Cells (Auto) Urine Creatinine Urine Total Protein Coronavirus (PCR) 08/19/20 08/19/20 08/19/20 16:58 16:58 16:58 WBC RBC Hgb Hct MCH RDW Lymph % (Auto) Lymph # (Auto) Seg Neutrophils % Seg Neuts % (Manual) Lymphocytes % (Manual) Seg Neutrophils # Lymphocytes # (Manual) D-Dimer > 40196 H Sodium Potassium Chloride Carbon Dioxide BUN Creatinine Glucose POC Glucose Hemoglobin A1c Calcium Phosphorus Ferritin 1043.0 H AST Lactate Dehydrogenase 721 H C-Reactive Protein 3.00 H Total Protein Albumin PTH Intact Ur Specific [place] Urine WBC (Auto) U Epithel Cells (Auto) Urine Creatinine Urine Total Protein Coronavirus (PCR) 08/19/20 08/19/20 08/20/20 17:18 22:53 06:38 WBC RBC Hgb Hct MCH RDW Lymph % (Auto) Lymph # (Auto) Seg Neutrophils % Seg Neuts % (Manual) Lymphocytes % (Manual) Seg Neutrophils # Lymphocytes # (Manual) D-Dimer Sodium Potassium Chloride Carbon Dioxide BUN Creatinine Glucose POC Glucose 223 H 273 H 268 H Hemoglobin A1c Calcium Phosphorus Ferritin AST Lactate Dehydrogenase C-Reactive Protein Total Protein Albumin PTH Intact Ur Specific [place] Urine WBC (Auto) U Epithel Cells (Auto) Urine Creatinine Urine Total Protein Coronavirus (PCR) 08/20/20 08/20/20 08/20/20 08:21 11:47 15:46 WBC RBC Hgb Hct MCH RDW Lymph % (Auto) Lymph # (Auto) Seg Neutrophils % Seg Neuts % (Manual) Lymphocytes % (Manual) Seg Neutrophils # Lymphocytes # (Manual) D-Dimer Sodium Potassium Chloride Carbon Dioxide BUN Creatinine Glucose POC Glucose 264 H 288 H 262 H Hemoglobin A1c Calcium Phosphorus Ferritin AST Lactate Dehydrogenase C-Reactive Protein Total Protein Albumin PTH Intact Ur Specific [place] Urine WBC (Auto) U Epithel Cells (Auto) Urine Creatinine Urine Total Protein Coronavirus (PCR) 08/20/20 08/21/20 08/21/20 21:33 07:46 11:56 WBC RBC Hgb Hct MCH RDW Lymph % (Auto) Lymph # (Auto) Seg Neutrophils % Seg Neuts % (Manual) Lymphocytes % (Manual) Seg Neutrophils # Lymphocytes # (Manual) D-Dimer Sodium Potassium Chloride Carbon Dioxide BUN Creatinine Glucose POC Glucose 274 H 249 H 227 H Hemoglobin A1c Calcium Phosphorus Ferritin AST Lactate Dehydrogenase C-Reactive Protein Total Protein Albumin PTH Intact Ur Specific [place] Urine WBC (Auto) U Epithel Cells (Auto) Urine Creatinine Urine Total Protein Coronavirus (PCR) 08/21/20 08/21/20 08/22/20 17:19 21:34 08:48 WBC RBC Hgb Hct MCH RDW Lymph % (Auto) Lymph # (Auto) Seg Neutrophils % Seg Neuts % (Manual) Lymphocytes % (Manual) Seg Neutrophils # Lymphocytes # (Manual) D-Dimer Sodium Potassium Chloride Carbon Dioxide BUN Creatinine Glucose POC Glucose 318 H 286 H 257 H Hemoglobin A1c Calcium Phosphorus Ferritin AST Lactate Dehydrogenase C-Reactive Protein Total Protein Albumin PTH Intact Ur Specific [place] Urine WBC (Auto) U Epithel Cells (Auto) Urine Creatinine Urine Total Protein Coronavirus (PCR) 08/22/20 08/22/20 08/22/20 12:34 17:41 21:22 WBC RBC Hgb Hct MCH RDW Lymph % (Auto) Lymph # (Auto) Seg Neutrophils % Seg Neuts % (Manual) Lymphocytes % (Manual) Seg Neutrophils # Lymphocytes # (Manual) D-Dimer Sodium Potassium Chloride Carbon Dioxide BUN Creatinine Glucose POC Glucose 324 H 283 H 308 H Hemoglobin A1c Calcium Phosphorus Ferritin AST Lactate Dehydrogenase C-Reactive Protein Total Protein Albumin PTH Intact Ur Specific [place] Urine WBC (Auto) U Epithel Cells (Auto) Urine Creatinine Urine Total Protein Coronavirus (PCR) 08/23/20 08/23/20 08/23/20 05:24 05:47 05:47 WBC 13.7 H RBC Hgb 9.9 L Hct MCH 27 L RDW Lymph % (Auto) Lymph # (Auto) Seg Neutrophils % Seg Neuts % (Manual) Lymphocytes % (Manual) Seg Neutrophils # Lymphocytes # (Manual) D-Dimer Sodium 133 L Potassium Chloride 90.4 L Carbon Dioxide BUN 103 H Creatinine 9.5 H Glucose 346 H POC Glucose 297 H Hemoglobin A1c Calcium 7.9 L Phosphorus Ferritin AST Lactate Dehydrogenase C-Reactive Protein Total Protein Albumin PTH Intact Ur Specific [place] Urine WBC (Auto) U Epithel Cells (Auto) Urine Creatinine Urine Total Protein Coronavirus (PCR) 08/23/20 08/23/20 08/23/20 07:34 10:58 14:07 WBC RBC Hgb Hct MCH RDW Lymph % (Auto) Lymph # (Auto) Seg Neutrophils % Seg Neuts % (Manual) Lymphocytes % (Manual) Seg Neutrophils # Lymphocytes # (Manual) D-Dimer > 43563 H Sodium Potassium Chloride Carbon Dioxide BUN Creatinine Glucose POC Glucose 276 H 334 H Hemoglobin A1c Calcium Phosphorus Ferritin AST Lactate Dehydrogenase C-Reactive Protein Total Protein Albumin PTH Intact Ur Specific [place] Urine WBC (Auto) U Epithel Cells (Auto) Urine Creatinine Urine Total Protein Coronavirus (PCR) 08/23/20 08/23/20 08/23/20 14:07 14:07 15:54 WBC RBC Hgb Hct MCH RDW Lymph % (Auto) Lymph # (Auto) Seg Neutrophils % Seg Neuts % (Manual) Lymphocytes % (Manual) Seg Neutrophils # Lymphocytes # (Manual) D-Dimer Sodium Potassium Chloride Carbon Dioxide BUN Creatinine Glucose POC Glucose 248 H Hemoglobin A1c Calcium Phosphorus Ferritin 1053.0 H AST Lactate Dehydrogenase 994 H C-Reactive Protein Total Protein Albumin PTH Intact Ur Specific [place] Urine WBC (Auto) U Epithel Cells (Auto) Urine Creatinine Urine Total Protein Coronavirus (PCR) 08/23/20 08/24/20 08/24/20 21:18 06:06 06:06 WBC 17.9 H RBC Hgb 10.0 L Hct MCH 26 L RDW Lymph % (Auto) Lymph # (Auto) Seg Neutrophils % Seg Neuts % (Manual) Lymphocytes % (Manual) Seg Neutrophils # Lymphocytes # (Manual) D-Dimer Sodium Potassium 5.2 H Chloride 94.8 L Carbon Dioxide BUN 79 H Creatinine 7.9 H Glucose 230 H POC Glucose 206 H Hemoglobin A1c Calcium 8.3 L Phosphorus Ferritin AST Lactate Dehydrogenase C-Reactive Protein Total Protein Albumin PTH Intact Ur Specific [place] Urine WBC (Auto) U Epithel Cells (Auto) Urine Creatinine Urine Total Protein Coronavirus (PCR) 08/24/20 08/24/20 08/24/20 07:44 11:31 15:51 WBC RBC Hgb Hct MCH RDW Lymph % (Auto) Lymph # (Auto) Seg Neutrophils % Seg Neuts % (Manual) Lymphocytes % (Manual) Seg Neutrophils # Lymphocytes # (Manual) D-Dimer Sodium Potassium Chloride Carbon Dioxide BUN Creatinine Glucose POC Glucose 199 H 307 H 325 H Hemoglobin A1c Calcium Phosphorus Ferritin AST Lactate Dehydrogenase C-Reactive Protein Total Protein Albumin PTH Intact Ur Specific [place] Urine WBC (Auto) U Epithel Cells (Auto) Urine Creatinine Urine Total Protein Coronavirus (PCR) 08/24/20 08/25/20 08/25/20 21:43 08:08 08:14 WBC RBC Hgb Hct MCH RDW Lymph % (Auto) Lymph # (Auto) Seg Neutrophils % Seg Neuts % (Manual) Lymphocytes % (Manual) Seg Neutrophils # Lymphocytes # (Manual) D-Dimer Sodium Potassium Chloride Carbon Dioxide BUN 65 H Creatinine 6.6 H Glucose 278 H POC Glucose 227 H 253 H Hemoglobin A1c Calcium Phosphorus Ferritin AST Lactate Dehydrogenase C-Reactive Protein Total Protein Albumin PTH Intact Ur Specific [place] Urine WBC (Auto) U Epithel Cells (Auto) Urine Creatinine Urine Total Protein Coronavirus (PCR) 08/25/20 08/25/20 08/25/20 08:14 10:53 16:18 WBC 19.0 H RBC Hgb Hct MCH 27 L RDW 15.8 H Lymph % (Auto) Lymph # (Auto) Seg Neutrophils % Seg Neuts % (Manual) Lymphocytes % (Manual) Seg Neutrophils # Lymphocytes # (Manual) D-Dimer Sodium Potassium Chloride Carbon Dioxide BUN Creatinine Glucose POC Glucose 332 H 329 H Hemoglobin A1c Calcium Phosphorus Ferritin AST Lactate Dehydrogenase C-Reactive Protein Total Protein Albumin PTH Intact Ur Specific [place] Urine WBC (Auto) U Epithel Cells (Auto) Urine Creatinine Urine Total Protein Coronavirus (PCR) 08/25/20 08/26/20 08/26/20 21:52 01:10 08:21 WBC RBC Hgb Hct MCH RDW Lymph % (Auto) Lymph # (Auto) Seg Neutrophils % Seg Neuts % (Manual) Lymphocytes % (Manual) Seg Neutrophils # Lymphocytes # (Manual) D-Dimer Sodium Potassium Chloride Carbon Dioxide BUN Creatinine Glucose POC Glucose 311 H 426 H 182 H Hemoglobin A1c Calcium Phosphorus Ferritin AST Lactate Dehydrogenase C-Reactive Protein Total Protein Albumin PTH Intact Ur Specific [place] Urine WBC (Auto) U Epithel Cells (Auto) Urine Creatinine Urine Total Protein Coronavirus (PCR) 08/26/20 08/26/20 08/26/20 10:38 11:05 16:36 WBC RBC Hgb Hct MCH RDW Lymph % (Auto) Lymph # (Auto) Seg Neutrophils % Seg Neuts % (Manual) Lymphocytes % (Manual) Seg Neutrophils # Lymphocytes # (Manual) D-Dimer Sodium Potassium Chloride 95.5 L Carbon Dioxide BUN 95 H Creatinine 8.9 H Glucose 216 H POC Glucose 191 H 173 H Hemoglobin A1c Calcium Phosphorus Ferritin AST Lactate Dehydrogenase C-Reactive Protein Total Protein Albumin PTH Intact Ur Specific [place] Urine WBC (Auto) U Epithel Cells (Auto) Urine Creatinine Urine Total Protein Coronavirus (PCR) 0308/27/20 08/27/20 22:22 06:13 07:36 WBC RBC Hgb Hct MCH RDW Lymph % (Auto) Lymph # (Auto) Seg Neutrophils % Seg Neuts % (Manual) Lymphocytes % (Manual) Seg Neutrophils # Lymphocytes # (Manual) D-Dimer Sodium Potassium Chloride Carbon Dioxide BUN 61 H Creatinine 6.9 H Glucose 52 L POC Glucose 160 H 38 L Hemoglobin A1c Calcium Phosphorus Ferritin AST Lactate Dehydrogenase C-Reactive Protein Total Protein Albumin PTH Intact Ur Specific [place] Urine WBC (Auto) U Epithel Cells (Auto) Urine Creatinine Urine Total Protein Coronavirus (PCR) 08/27/20 08/27/20 08/27/20 08:19 10:56 16:07 WBC RBC Hgb Hct MCH RDW Lymph % (Auto) Lymph # (Auto) Seg Neutrophils % Seg Neuts % (Manual) Lymphocytes % (Manual) Seg Neutrophils # Lymphocytes # (Manual) D-Dimer Sodium Potassium Chloride Carbon Dioxide BUN Creatinine Glucose POC Glucose 61 L 147 H 230 H Hemoglobin A1c Calcium Phosphorus Ferritin AST Lactate Dehydrogenase C-Reactive Protein Total Protein Albumin PTH Intact Ur Specific [place] Urine WBC (Auto) U Epithel Cells (Auto) Urine Creatinine Urine Total Protein Coronavirus (PCR) 08/27/20 08/28/20 08/28/20 21:31 07:23 07:28 WBC RBC Hgb Hct MCH RDW Lymph % (Auto) Lymph # (Auto) Seg Neutrophils % Seg Neuts % (Manual) Lymphocytes % (Manual) Seg Neutrophils # Lymphocytes # (Manual) D-Dimer Sodium 136 L Potassium Chloride 96.4 L Carbon Dioxide BUN 47 H Creatinine 5.8 H Glucose 314 H POC Glucose 314 H 292 H Hemoglobin A1c Calcium 7.8 L Phosphorus Ferritin AST Lactate Dehydrogenase C-Reactive Protein Total Protein Albumin PTH Intact Ur Specific [place] Urine WBC (Auto) U Epithel Cells (Auto) Urine Creatinine Urine Total Protein Coronavirus (PCR) 08/28/20 08/28/20 08/28/20 11:10 16:28 21:44 WBC RBC Hgb Hct MCH RDW Lymph % (Auto) Lymph # (Auto) Seg Neutrophils % Seg Neuts % (Manual) Lymphocytes % (Manual) Seg Neutrophils # Lymphocytes # (Manual) D-Dimer Sodium Potassium Chloride Carbon Dioxide BUN Creatinine Glucose POC Glucose 287 H 268 H 282 H Hemoglobin A1c Calcium Phosphorus Ferritin AST Lactate Dehydrogenase C-Reactive Protein Total Protein Albumin PTH Intact Ur Specific [place] Urine WBC (Auto) U Epithel Cells (Auto) Urine Creatinine Urine Total Protein Coronavirus (PCR) 08/29/20 08/29/20 08/29/20 06:42 08:18 11:14 WBC RBC Hgb Hct MCH RDW Lymph % (Auto) Lymph # (Auto) Seg Neutrophils % Seg Neuts % (Manual) Lymphocytes % (Manual) Seg Neutrophils # Lymphocytes # (Manual) D-Dimer Sodium 135 L Potassium Chloride 95.9 L Carbon Dioxide BUN 72 H Creatinine 8.0 H Glucose 236 H POC Glucose 172 H 206 H Hemoglobin A1c Calcium 7.9 L Phosphorus Ferritin AST Lactate Dehydrogenase C-Reactive Protein Total Protein Albumin PTH Intact Ur Specific [place] Urine WBC (Auto) U Epithel Cells (Auto) Urine Creatinine Urine Total Protein Coronavirus (PCR) 08/29/20 08/30/20 16:23 00:02 WBC RBC Hgb Hct MCH RDW Lymph % (Auto) Lymph # (Auto) Seg Neutrophils % Seg Neuts % (Manual) Lymphocytes % (Manual) Seg Neutrophils # Lymphocytes # (Manual) D-Dimer Sodium Potassium Chloride Carbon Dioxide BUN Creatinine Glucose POC Glucose 242 H 220 H Hemoglobin A1c Calcium Phosphorus Ferritin AST Lactate Dehydrogenase C-Reactive Protein Total Protein Albumin PTH Intact Ur Specific [place] Urine WBC (Auto) U Epithel Cells (Auto) Urine Creatinine Urine Total Protein Coronavirus (PCR)
--- NOTE | 2020-08-30 12:14 | Progress Note ---
Assessment and Plan --COVID-19 pneumonia Status post azithromycin and ceftriaxone Not a candidate for remdesivir due to impaired renal function Continue dexamethasone Incentive spirometer Prone positioning as tolerated Pulmonology following ID on board --Acute hypoxic respiratory failure Secondary to Covid pneumonia Continue oxygen supplementation-on 5 L FiO2 40% Assess for home O2 requirement --ANGELIQUE on CKD now on hemodialysis Likely ATN, started on hemodialysis Continue hemodialysis as scheduled Nephrology on board, need outpatient hemodialysis set up --Hyperkalemia, due to declining renal function, resolved --Elevated D-dimer Ultrasound lower extremity Doppler negative Unable to obtain CTA chest due to allergies Continue apixaban 5 mg twice a day --HARPER, COPD States that she uses BiPAP at home BiPAP QHS, scheduled and as needed breathing treatment with nebulizer --Diabetes mellitus cont Lantus and lispro with Accu-Chek Continue home dose Tradjenta A1c 7.6 --Hyperlipidemia Continue statins --Hypertension Continue current medication Monitor palpitations -- Oral thrush Plced on Nystatin DVT/GI prophylaxis: SCDs to BLE while in bed, PPI, Eliquis twice daily Disposition: TTF Brief history: This is a 64-year-old female with hypertension, diabetes, COPD, CVA, gout, hyperlipidemia who presented to the emergency department on 08/15 for a productive cough, wheezing, headache, subjective fevers scratchy throat ongoing for 4 weeks since 07/21/2020 s/p Z-Bipin and steroids who was COVID-19 positive prior to admissi on. Upon evaluation in the ER, had a low-grade fever, noted to be hypoxic requiring supplemental oxygen. Patient also noted to be hyperkalemic with potassium as high as 6.7, and elevated creatinine with ANGELIQUE. Patient was admitted to the hospital for further evaluation management, pulmonology, infec tious disease, nephrology were consulted. Daily course: 08/30: Patient on 5 L 40% FiO2 today. Continue to wean off as tolerated. Discussed with test case developer -Patient is being plan to discharge to SNF. 08/29. Remains on 15L 55% HFNC. Continue to wean as tolerated. Prone positioning PRN. 08/28. Weaned down to 15 L 55%FiO2. Using incentive spirometer. 08/27. On HFNC - 30 L 705 FiO2. She has HARPER and uses BIPAP at home. BIPAP at bedside. Complains of pain with swallowing. Ordered nystatin. 08/26. On HFNC - 30 L 705 FiO2. She has HARPER and uses BIPAP at home. Will place order for BIPAP 08/25. On high flow nasal cannula 30 L, FiO2 90%. Started empirically on Eliquis 5 mg twice daily for possible PE. She has no complaints this morning. Has some cough. Pulmonology and ID following. Remains on steroids 08/24: Patient remains on HFNC at 40L, 80% FiO2, her ddimer>[id number] and her BLE Doppler US (-) for DVT. Unable to obtain a CTA chest due to allergy to contrast. We will treat Eliquis 5 mg twice daily. Wean supplemental oxygenation as tolerated. Patient will be transferred to the floor today. 08/23: Patient complains of cough, intermittent shortness of breath, received hemodialysis today and remains on high flow nasal cannula at 40 L, 80%. No acute events reported overnight. VQ scan and bilateral lower extremity Doppler ultrasound pending 08/22: High flow nasal cannula, intermittent HD, high-dose steroids 08/21: High flow nasal cannula 08/20:-High flow nasal cannula 08/19:-High flow nasal cannula, PICC line ordered, bicarb 08/18: High flow nasal cannula, transferred to ICU 08/17: Hypoxia,-nasal cannula 08/16: High flow nasal cannula, Vas-Cath placement for intermittent HD, COVID-19 PCR positive Subjective Date of service: 08/30/20 Principal diagnosis: Acute respiratory failure with hypoxia, ANGELIQUE superimposed onCKD, Covid pneum Interval history: Patient seen and examined. Medical records and medication list reviewed. No acute event overnight noted by the RN. Patient remains on 5 L 40% FiO2. Patient is tolerating diet. Discussed plan of care at bedside with patient. Objective - Exam Narrative Exam: Limited physical exam due to COVID-19 pandemic to minimize transmission of the disease and to preserve PPE. Vital reviewed and stable. GENERAL: well-developed morbidly obese female lying on bed appeared to be in no discomfort. HEENT: Normocephalic. Atraumatic. NECK: Supple. CHEST/LUNGS: breathing nonlabored. HEART/CARDIOVASCULAR: Heart rate stable on telemetry ABDOMEN: Visibly not distended SKIN: There is no rash NEURO: No focal motor deficit. Follows command. MUSCULOSKELETAL: No joint effusion EXTRIMITY: No swelling, no cyanosis or clubbing. PSYCH: Cooperative. - Constitutional Vitals: Vital Signs - 12hr 08/30/20 08/30/20 08/30/20 04:19 09:30 10:55 Temperature 97.9 F 98.0 F Pulse Rate 109 H Respiratory 15 22 Rate Blood Pressure 86/59 130/97 O2 Sat by Pulse 96 97 Oximetry - Labs CBC & Chem 7: 08/25/20 08:14 08/29/20 06:42 Labs: Abnormal lab results 08/29/20 08/30/20 Range/Units 16:23 00:02 POC Glucose 242 H 220 H (70-105) mg/dL
[2020-08-31] MEDS: BENZONATATE 100 MG CAP PO SCH ×3 (05:11→21:33)
[2020-08-31] MEDS: INSULIN LISPRO 100 UNIT/ML SUB-Q SCH ×4 (07:30→21:53)
[2020-08-31 07:39] LABS: Basophils # (Auto) 0.1 K/mm3 (0.0-0.1); Basophils % (Auto) 0.4 % (0.0-1.8); Eosinophils # (Auto) 0.1 K/mm3 (0.0-0.4); Eosinophils % (Auto) 0.9 % (0.0-4.3); Hematocrit 28.2 % (30.3-42.9); Lymphocytes # (Auto) 0.8 K/mm3 (1.2-5.4); Lymphocytes % (Auto) 5.4 % (13.4-35.0); Mean Corpuscular HGB Conc 32 % (30-34); Mean Corpuscular Volume 85 fl (79-97); Monocytes # (Auto) 0.9 K/mm3 (0.0-0.8); Platelet Count 155 K/mm3 (140-440); Red Blood Count 3.31 M/mm3 (3.65-5.03); Red Cell Distribution Width 15.9 % (13.2-15.2)
[2020-08-31 07:57] LABS: Calcium 7.7 mg/dL (8.4-10.2)
[2020-08-31] MEDS: LINAGLIPTIN 5 MG TAB PO SCH (10:37)
[2020-08-31] MEDS: APIXABAN 5 MG TAB PO SCH ×2 (10:37→21:33)
[2020-08-31] MEDS: CALCITRIOL 0.25 MCG CAP PO SCH (10:37)
[2020-08-31] MEDS: FOLIC ACID/VIT B COMP W-C 1 MG (RENAL CAPS) PO SCH (10:37)
[2020-08-31] MEDS: ZINC SULFATE 220 MG CAP PO SCH ×2 (10:37→21:33)
[2020-08-31] MEDS: EZETIMIBE 10 MG TAB PO SCH (10:37)
[2020-08-31] MEDS: NYSTATIN 500,000 UNIT/5 ML ORAL LIQD PO SCH ×3 (10:38→20:33)
[2020-08-31] MEDS: ASCORBIC ACID 500 MG TAB PO SCH ×2 (10:38→21:33)
[2020-08-31] MEDS: PANTOPRAZOLE 40 MG TAB PO SCH (10:38)
[2020-08-31] MEDS: dexAMETHasone 4 MG/ML VIAL IV SCH (10:38)
[2020-08-31] MEDS: PRAVASTATIN 40 MG TAB PO SCH (10:39)
[2020-08-31] MEDS: INSULIN GLARGINE 100 UNITS/ML SUB-Q SCH ×2 (10:50→21:54)
--- NOTE | 2020-08-31 10:53 | Progress Note ---
Assessment and Plan Impression: #Acute kidney injury: She was initially on daily dialysis and was then transitioned to intermittent dialysis. #Has underlying chronic kidney disease her baseline creatinine is around 1.7-[address] Rivers's office #Respiratory failure resulting from Covid 19 pneumonia + fluid overload- being followed by pulmonary service. UF with HD as tolerated. Limit fluid intake to 1L/d #Covid 19 viral pneumonia with ARDS like picture, patient has multiorgan failure Plan: #HD MWF #she will need ongoing renal replacement therapy as tolerated for now. Monitor labs and I/O daily. # Keep MAP> 65 # Renally dose medications # Renal diet arrange outpatient hd placement Subjective Date of service: 08/31/20 Principal diagnosis: Acute respiratory failure with hypoxia, ANGELIQUE superimposed onCKD, Covid pneum Interval history: Subjective Date of service: 08/28/20 Principal diagnosis: Acute respiratory failure with hypoxia, ANGELIQUE superimposed onCKD, Covid pneum Interval history: Patient was seen for her renal issues Nursing, interdisciplinary and consult notes were reviewed Vitals, input and output, medications and labs were reviewed Objective - Exam Narrative Exam: deferred for preservation of ppe Objective - Vital Signs Vital signs: Vital Signs - 12hr 08/31/20 08/31/20 06:06 08:49 Temperature 97.3 F L Pulse Rate 86 Respiratory 24 Rate Blood Pressure 102/63 O2 Sat by Pulse 97 96 Oximetry - Lab 08/31/20 07:09 08/31/20 07:09 Most recent lab results Calcium 7.7 mg/dL (8.4-10.2) L 08/31/20 07:09 Phosphorus 5.90 mg/dL (2.5-4.5) H 08/17/20 09:35 Urine Creatinine 248.0 mg/dL (0.1-20.0) H 08/17/20 17:45 Urine Total Protein 196 mg/dL (5-11.8) H 08/17/20 17:45 Medications & Allergies - Medications Allergies/Adverse Reactions: Allergies gabapentin [From Neurontin] Allergy (Verified 08/15/20 17:25) Unknown rosuvastatin calcium [From Crestor] Allergy (Verified 08/15/20 17:25) Rash fluticasone propionate [From Advair Diskus] Adverse Reaction (Verified 08/15/20 17:25) Headache salmeterol xinafoate [From Advair Diskus] Adverse Reaction (Verified 08/15/20 17:25) Headache IV DYE Allergy (Uncoded 08/24/20 10:28) Itching Home Medications: Home Medications Medication Instructions Recorded Confirmed Last Taken Type Colchicine [Colcrys] 0.6 mg PO DAILY 08/15/20 08/15/20 Unknown History Cyanocobalamin (Vitamin B-12) 1,000 mcg IJ QMONTH 08/15/20 08/15/20 Unknown History [Physicians Ez Use B-12] Ergocalciferol [Vitamin D2] 1 cap PO QWEEK 08/15/20 08/15/20 Unknown History Ezetimibe/Simvastatin 1 each PO DAILY 08/15/20 08/15/20 Unknown History [Ezetimibe-Simvastatin 10-20 mg] Famotidine [Pepcid] 40 mg PO DAILY 08/15/20 08/15/20 Unknown History Furosemide [Lasix] 40 mg PO BID 08/15/20 08/15/20 Unknown History HYDROcodone/APAP 5-325 [Likely 1 each PO Q6HR PRN 08/15/20 08/15/20 Unknown History 5/325] Linagliptin [Tradjenta] 5 mg PO QDAY 08/15/20 08/15/20 Unknown History Omeprazole 40 mg PO DAILY 08/15/20 08/15/20 Unknown History Potassium Chloride [K-Dur] 20 meq PO BID 08/15/20 08/15/20 Unknown History Valsartan [Diovan] 160 mg PO QDAY 08/15/20 08/15/20 Unknown History allopurinoL [Zyloprim] 200 mg PO DAILY 08/15/20 08/15/20 Unknown History carvediloL [Coreg] 3.125 mg PO BID 08/15/20 08/15/20 Unknown History Albuterol Sulfate [Proair 90 mcg INHALATION Q4H PRN 08/17/20 08/17/20 Unknown History Digihaler] Spiriva 2.5 mcg INHALATION DAILY 08/17/20 08/17/20 Unknown History Symbicort 160-4.5 Mcg Inhaler 160 mcg INHALATION BID 08/17/20 08/17/20 Unknown History Active Medications: Generic Name Dose Route Start Last Admin Trade Name Freq PRN Reason Stop Dose Admin Acetaminophen 650 mg 08/15/20 22:16 08/19/20 01:17 Acetaminophen 325 Mg Tab PO 650 mg Q4H PRN Administration Pain MILD(1-3)/Fever >100.5/TELLO Hydrocodone Bitart/Acetaminophen 1 each 08/15/20 22:06 08/23/20 17:22 Hydrocodone/Acetaminophen 5-325 Mg Tab PO 1 each Q6HR PRN Administration Pain, Moderate (4-6) Albuterol 2.5 mg 08/27/20 00:38 Albuterol 2.5 Mg/3 Ml Nebu IH 09/26/20 00:36 Q6HRT PRN Shortness Of Breath Apixaban 5 mg 08/24/20 11:00 08/31/20 10:37 Apixaban 5 Mg Tab PO 5 mg Q12HR SYLVAIN Administration Protocol Ascorbic Acid 1,000 mg 08/15/20 23:00 08/31/20 10:38 Ascorbic Acid 500 Mg Tab PO 1,000 mg BID SYLVAIN Administration Benzonatate 100 mg 08/25/20 14:00 08/31/20 05:11 Benzonatate 100 Mg Cap PO 100 mg Q8HR SYLVAIN Administration Calcitriol 0.25 mcg 08/18/20 10:00 08/31/20 10:37 Calcitriol 0.25 Mcg Cap PO 0.25 mcg QDAY SYLVAIN Administration Dexamethasone 6 mg 08/26/20 15:00 08/31/20 10:38 Dexamethasone 4 Mg/Ml Vial IV 08/31/20 14:59 6 mg DAILY SYLVAIN Administration Dextrose 25 ml 08/27/20 08:08 Dextrose 50% In Water (25gm) 50 Ml Syringe IV Q30MIN PRN HYPOGLYCEMIA Protocol Ezetimibe 10 mg 08/16/20 10:00 08/31/20 10:37 Ezetimibe 10 Mg Tab PO 10 mg DAILY SYLVAIN Administration Hydromorphone HCl 0.5 mg 08/15/20 22:16 Hydromorphone 1 Mg/1 Ml Inj IV Q3H PRN Pain , Severe (7-10) Sodium Chloride 100 mls @ 999 mls/hr 08/24/20 08:20 Nacl 0.9% IV SARAI PRN Hypotension Insulin Glargine 35 units 08/26/20 08:30 08/31/20 10:50 Insulin Glargine 100 Units/Ml SUB-Q 35 units BID SYLVAIN Administration Insulin Human Lispro 0 unit 08/18/20 13:23 08/31/20 07:30 Insulin Lispro 100 Unit/Ml SUB-Q Not Given [facility] Protocol Linagliptin 5 mg 08/16/20 10:00 08/31/20 10:37 Linagliptin 5 Mg Tab PO 5 mg QDAY SYLVAIN Administration Metoclopramide HCl 5 mg 08/15/20 22:37 Metoclopramide 10 Mg/2 Ml Inj IV Q6H PRN Nausea And Vomiting Multivit/Ca Carb/B Cmplx/FA/Prenat 1 cap 08/18/20 10:00 08/31/20 10:37 Folic Acid/Vit B Comp W-C 1 Mg (Renal Caps) PO 1 cap DAILY SYLVAIN Administration Nystatin 400,000 unit 08/26/20 18:24 08/31/20 10:38 Nystatin 500,000 Unit/5 Ml Oral Liqd PO 400,000 unit TID SYLVAIN Administration Ondansetron HCl 4 mg 08/15/20 22:16 Ondansetron 4 Mg/2 Ml Inj IV Q8H PRN Nausea And Vomiting Oxycodone/Acetaminophen 1 tab 08/15/20 22:16 08/18/20 09:58 Oxycodone /Acetaminophen 5-325mg Tab PO 1 tab Q6H PRN Administration Pain, Moderate (4-6) Pantoprazole Sodium 40 mg 08/16/20 10:00 08/31/20 10:38 Pantoprazole 40 Mg Tab PO 40 mg DAILY SYLVAIN Administration Pravastatin Sodium 40 mg 08/16/20 10:00 08/31/20 10:39 Pravastatin 40 Mg Tab PO 40 mg DAILY SYLVAIN Administration Pseudoephedrine/Acetam/Chlorphenir 10 ml 08/18/20 10:30 08/23/20 17:21 Guaifenesin/Codeine 100-10mg Oral Liqd 5 Ml PO 10 ml Q4H PRN Administration Cough Sodium Chloride 10 ml 08/15/20 23:00 08/31/20 10:39 Sodium Chloride 0.9% 10 Ml Flush Syringe IV 10 ml BID SYLVAIN Administration Sodium Chloride 10 ml 08/15/20 22:16 Sodium Chloride 0.9% 10 Ml Flush Syringe IV PRN PRN LINE FLUSH Zinc Sulfate 220 mg 08/15/20 23:00 08/31/20 10:37 Zinc Sulfate 220 Mg Cap PO 220 mg BID SYLVAIN Administration
--- NOTE | 2020-08-31 12:30 | Discharge Summary ---
Providers - Providers Date of Admission: 08/15/20 18:00 Date of discharge: 09/05/20 Attending physician: NICOLE ARNOLD 08/15/20 17:30 Consult to Physician [CONS] Urgent Comment: Consulting Provider: SMA ERNANDEZ Physician Instructions: Reason For Exam: COVID-19 pneumonia, hypoxia 08/15/20 22:40 Consult to Physician [CONS] Routine Comment: Consulting Provider: JENNIFER YEPEZ Physician Instructions: Reason For Exam: COVID-pneumonia 08/16/20 09:15 Consult to Physician [CONS] Routine Comment: Consulting Provider: LEXI CARROLL Physician Instructions: Reason For Exam: CKD/ESRD 08/16/20 11:45 Consult to Physician [CONS] Urgent Comment: NOEL please Consulting Provider: BACILIO CAMACHO Physician Instructions: Reason For Exam: vas cath placement 08/16/20 15:14 Physical Therapy Evaluation and Treat [CONS] Stat Comment: trouble with ambulation up and down steps Reason For Exam: Eval and treat 08/18/20 08:09 Consult to Wound/ET Nurse [CONS] Routine Reason For Exam: wound eval 08/18/20 18:04 Consult to Physician [CONS] Routine Comment: Consulting Provider: VICENTE SANABRIA Physician Instructions: Reason For Exam: Acute respiratory failure with hypoxia, acute kidn 08/29/20 10:35 Consult to Case Management [CONS] Routine Services Needed at Discharge: Other Notified:: cm notified Additional Physician Instructions: [facility] dialysis placement Primary care physician: KENNETH GUERRA Hospitalization Condition: Fair Hospital course: This is a 64-year-old female with hypertension, diabetes, COPD, CVA, gout, hyperlipidemia who presented to the emergency department on 08/15 for a productive cough, wheezing, headache, subjective fevers scratchy throat ongoing for 4 weeks since 07/21/2020 s/p Z-Bipin and steroids who was COVID-19 positive prior to admission. Upon evaluation in the ER, had a low-grade fever, noted to be hypoxic requiring supplemental oxygen. Patient also noted to be hyperkalemic with potassium as high as 6.7, and elevated creatinine with ANGELIQUE. Patient was admitted to the hospital for further evaluation management, pulmonology, infectious disease, nephrology were consulted. Daily course: 09/05/20: Patient clinically stable. Outpatient dialysis has been set up. Patient will be discharged to SNF. 08/31/20 -09/04/20: pending d/c to SNF/[facility]. 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 08/30: Patient on 5 L 40% FiO2 today. Continue to wean off as tolerated. Discussed with behavioral health case manager -Patient is being plan to discharge to SNF. 08/29. Remains on 15L 55% HFNC. Continue to wean as tolerated. Prone positioning PRN. 08/28. Weaned down to 15 L 55%FiO2. Using incentive spirometer. 08/27. On HFNC - 30 L 705 FiO2. She has HARPER and uses BIPAP at home. BIPAP at bedside. Complains of pain with swallowing. Ordered nystatin. 08/26. On HFNC - 30 L 705 FiO2. She has HARPER and uses BIPAP at home. Will place order for BIPAP 08/25. On high flow nasal cannula 30 L, FiO2 90%. Started empirically on Eliquis 5 mg twice daily for possible PE. She has no complaints this morning. Has some cough. Pulmonology and ID following. Remains on steroids 08/24: Patient remains on HFNC at 40L, 80% FiO2, her ddimer>60059 and her BLE Doppler US (-) for DVT. Unable to obtain a CTA chest due to allergy to contras t. We will treat Eliquis 5 mg twice daily. Wean supplemental oxygenation as tolerated. Patient will be transferred to the floor today. 08/23: Patient complains of cough, intermittent shortness of breath, received hemodialysis today and remains on high flow nasal cannula at 40 L, 80%. No acute events reported overnight. VQ scan and bilateral lower extremity Doppler ultrasound pending 08/22: High flow nasal cannula, intermittent HD, high-dose steroids 08/21: High flow nasal cannula 08/20:-High flow nasal cannula 08/19:-High flow nasal cannula, PICC line ordered, bicarb 08/18: High flow nasal cannula, transferred to ICU 08/17: Hypoxia,-nasal cannula 08/16: High flow nasal cannula, Vas-Cath placement for intermittent HD, COVID-19 PCR positive Discharge diagnosis and Mx: --COVID-19 pneumonia Status post azithromycin and ceftriaxone Not a candidate for remdesivir due to impaired renal function s/p dexamethasone for total 10 days Incentive spirometer Prone positioning as tolerated Pulmonology following ID on board --Acute hypoxic respiratory failure Secondary to Covid pneumonia Continue oxygen supplementation-on 2-4 L FiO2 need home O2 on discharge --ANGELIQUE on CKD now on hemodialysis Likely ATN, started on hemodialysis Continue hemodialysis as scheduled Nephrology on board, arranged outpatient hemodialysis set up --Hyperkalemia, due to declining renal function, resolved --Elevated D-dimer Ultrasound lower extremity Doppler negative Unable to obtain CTA chest due to allergies Continue apixaban 5 mg twice a day --HARPER, COPD States that she uses BiPAP at home BiPAP QHS, scheduled and as needed breathing treatment with nebulizer --Diabetes mellitus cont Lantus and lispro with Accu-Chek Continue home dose Tradjenta A1c 7.6 --Hyperlipidemia Continue statins --Hypertension Continue current medication Monitor palpitations --Oral facial herpes Acyclovir 200 mg twice a day for 7 days DVT/GI prophylaxis: SCDs to BLE while in bed, PPI, Eliquis twice daily Disposition: SNF/[facility] Disposition: [id number] SNF W [facility] Final Discharge Diagnosis (Prints w/discharge instructions): Acute hypoxic respiratory failure. COVID-19 pneumonia. ANGELIQUE on CKD, now on HD. COPD, DM type 2, HTN. Orofacial herpes Time spent for discharge: 34 minutes Core Measure Documentation - Palliative Care Palliative Care/ Comfort Measures: Not Applicable - Core Measures Any of the following diagnoses?: none Exam - Physical Exam Narrative exam: Limited physical exam due to COVID-19 pandemic to minimize transmission of the disease and to preserve PPE. Vital reviewed and stable. GENERAL: well-developed morbidly obese female lying on bed appeared to be in no discomfort. HEENT: Normocephalic. Atraumatic. NECK: Supple. CHEST/LUNGS: breathing nonlabored. HEART/CARDIOVASCULAR: Heart rate stable on telemetry ABDOMEN: Visibly not distended SKIN: There is no rash NEURO: No focal motor deficit. Follows command. MUSCULOSKELETAL: No joint effusion EXTRIMITY: No swelling, no cyanosis or clubbing. PSYCH: Cooperative. - Constitutional Vitals: Temp Pulse Resp BP Pulse Ox 97.3 F L 86 24 102/63 96 08/31/20 06:06 08/31/20 06:06 08/31/20 06:06 08/31/20 06:06 08/31/20 08:49 Plan Activity: advance as tolerated Weight Bearing Status: Non-Weight Bearing Diet: diabetic, renal Special Instructions: physical therapy, home oxygen via (n/c) Follow up with: KENNETH GUERRA JR, MD [Primary Care Provider] - 3-5 Days Prescriptions: Acyclovir [Zovirax Cap] 200 mg PO Q12HR #12 capsule
--- NOTE | 2020-08-31 12:59 | Progress Note ---
Assessment and Plan 64 y/o female with acute respiratory failure thought secondary to COVID, found to be positive 08/31/20: Continue to wean FiO2 as tolerated. HD per renal. There is a discharge order in computer for today. If discharged, patient can follow up with Dr. Aparicio in 14 days from discharge. 08/30/20: Continue to wean FiO2 as tolerated. Hd per renal. Will continue to follow up. 08/28/20: Continue to wean FiO2 as tolerated. HD per renal. Proning if able. Prognosis remains guarded but promising given reduction in oxygen 08/27/20: Continue to wean FiO2 as tolerated. HD per renal. Prone as tolerated. Guarded prognosis. 08/25/20: Empirically started on anticoags, monitor renal function and coags and hgb. LAst day of steroids, however may need to extend out if oxygen requirement doesn't improve with continued HD and volume removal. Encourage to prone or some variation of this. Guarded prognosis. 08/24/20: Markers remain elevated. IMS concerned about clot. dopplers negative so they have cleared with renal for CTA. Oxygenation not worse and I am not sure how aggressive weaning has been. Will attempt to do better today. HD per renal. Continue high dose steroids. Guarded prognosis. 08/23/20: Agree with HD again today. Wean FiO2 for sats >88% and patient comfort. Continue steroids at current dosing. Lantus for sugars. Will observe on HD again today. If anything, and a bed is needed, can transfer to step down. 08/22/20: HD per renal. Patient has questions about why she is requiring HD, please address with her if possible. Hopeful she will have several HD sessions back to back as I feel a lot of her most recent decline is from volume. COntinue High dose steroids but will extend out to 10 days. Increase lantus to help with sugars. Can likely be transferred to step down or back to the floor. 08/19/20: Ordered PICC line for use during HD if patient requires vasopressors. Most likely increase in oxygen secondary to volume from lack of appropriate HD secondary to hypotension. Will give a couple amps of bicarb to see if this will help with blood pressure and can wills off pressor use. Continue steroids. Agree with ID on increasing the dose. Guarded prognosis 08/18/20: Prone as tolerated during day and sleep prone at night. Continue supplemental O2. Steroids for 10 days. Hold on nebs. Needs RT consult for documentation of oxygen therapy and requirements. 08/17/20: Found to be positive. Same recs as yesterday. Likely not a candidate for remdesivir given renal function. No nebulizer therapy, only inhaler therapy if and when needed. Continue supplemental O2 and proning is mcknight. Guarded prognosis given renal failure. 1. Follow up covid testing 2. Ok with current steroids 3. If patient brought in home inhalers, please allow pharmacy to verify and use them, no neb treatments 4. Prone during the day and and sleep prone at night as tolerated. Guarded prognosis. Subjective Date of service: 08/31/20 Principal diagnosis: Acute respiratory failure with hypoxia, ANGELIQUE superimposed onCKD, Covid pneum Interval history: No acute events. Still on 5 liters but has good sats. Objective Vital Signs - 12hr 08/31/20 08/31/20 08/31/20 06:06 08:49 12:55 Temperature 97.3 F L 98 F Pulse Rate 86 88 Respiratory 24 20 Rate Blood Pressure 102/63 Blood Pressure 98/55 [Right] O2 Sat by Pulse 97 96 100 Oximetry Constitutional: alert, other (obese, critically ill on ventilator) Eyes: non-icteric ENT: oropharynx moist Neck: supple Effort: normal Ascultation: Bilateral: diminished breath sounds Cardiovascular: regular rate and rhythm (no mrg) Gastrointestinal: normoactive bowel sounds, soft, non-tender, non-distended Integumentary: normal Extremities: no cyanosis, no edema Neurologic: normal mental status, non-focal exam Psychiatric: mood appropriate, affect normal CBC and BMP: 08/31/20 07:09 08/31/20 07:09 ABG, PT/INR, D-dimer: PT/INR, D-dimer D-Dimer > 58624 ng/mlDDU (0-234) H 08/23/20 14:07 Abnormal lab findings: Abnormal Labs 08/15/20 08/15/20 08/15/20 17:01 17:01 17:01 WBC RBC Hgb Hct MCH RDW 15.8 H Lymph % (Auto) 7.4 L Lymph # (Auto) 0.7 L [place] # (Auto) Seg Neutrophils % 85.1 H Seg Neuts % (Manual) Lymphocytes % (Manual) Seg Neutrophils # 7.9 H Lymphocytes # (Manual) D-Dimer 1750.12 H Sodium Potassium 5.1 H Chloride 97.1 L Carbon Dioxide BUN 67 H Creatinine 4.8 H Glucose 101 H POC Glucose Hemoglobin A1c Calcium Phosphorus Ferritin AST 53 H Lactate Dehydrogenase C-Reactive Protein Total Protein Albumin 3.4 L PTH Intact Ur Specific [place] Urine WBC (Auto) U Epithel Cells (Auto) Urine Creatinine Urine Total Protein Coronavirus (PCR) 08/15/20 08/15/20 08/15/20 17:01 17:01 17:01 WBC RBC Hgb Hct MCH RDW Lymph % (Auto) Lymph # (Auto) [place] # (Auto) Seg Neutrophils % Seg Neuts % (Manual) Lymphocytes % (Manual) Seg Neutrophils # Lymphocytes # (Manual) D-Dimer Sodium Potassium Chloride Carbon Dioxide BUN Creatinine Glucose 101 H POC Glucose Hemoglobin A1c Calcium Phosphorus Ferritin 667.2 H AST Lactate Dehydrogenase 606 H 567 H C-Reactive Protein 4.60 H 6.30 H Total Protein Albumin PTH Intact Ur Specific [place] Urine WBC (Auto) U Epithel Cells (Auto) Urine Creatinine Urine Total Protein Coronavirus (PCR) 08/16/20 08/16/20 08/16/20 04:32 04:32 04:32 WBC RBC Hgb Hct MCH 27 L RDW 15.9 H Lymph % (Auto) 12.6 L Lymph # (Auto) 0.8 L [place] # (Auto) Seg Neutrophils % 83.7 H Seg Neuts % (Manual) Lymphocytes % (Manual) Seg Neutrophils # Lymphocytes # (Manual) D-Dimer Sodium 136 L Potassium 6.7 H* D Chloride Carbon Dioxide BUN 78 H Creatinine 6.2 H Glucose 223 H POC Glucose Hemoglobin A1c 7.6 H Calcium 7.8 L Phosphorus Ferritin AST 47 H Lactate Dehydrogenase C-Reactive Protein Total Protein 5.8 L D Albumin 3.1 L PTH Intact Ur Specific [place] Urine WBC (Auto) U Epithel Cells (Auto) Urine Creatinine Urine Total Protein Coronavirus (PCR) 08/16/20 08/16/20 08/16/20 17:01 17:05 21:41 WBC RBC Hgb Hct MCH RDW Lymph % (Auto) Lymph # (Auto) [place] # (Auto) Seg Neutrophils % Seg Neuts % (Manual) Lymphocytes % (Manual) Seg Neutrophils # Lymphocytes # (Manual) D-Dimer Sodium Potassium Chloride Carbon Dioxide BUN 93 H Creatinine 7.7 H Glucose 228 H POC Glucose 150 H 204 H Hemoglobin A1c Calcium Phosphorus Ferritin AST Lactate Dehydrogenase C-Reactive Protein Total Protein Albumin PTH Intact Ur Specific [place] Urine WBC (Auto) U Epithel Cells (Auto) Urine Creatinine Urine Total Protein Coronavirus (PCR) 08/16/20 08/17/20 08/17/20 Unknown 07:31 07:31 WBC RBC Hgb Hct MCH 27 L RDW 16.0 H Lymph % (Auto) 4.2 L Lymph # (Auto) 0.4 L [place] # (Auto) Seg Neutrophils % 90.0 H Seg Neuts % (Manual) Lymphocytes % (Manual) Seg Neutrophils # 8.8 H Lymphocytes # (Manual) D-Dimer Sodium Potassium 5.8 H D Chloride Carbon Dioxide 20 L BUN 103 H Creatinine 9.0 H Glucose 219 H POC Glucose Hemoglobin A1c Calcium 7.9 L Phosphorus Ferritin AST Lactate Dehydrogenase C-Reactive Protein Total Protein Albumin PTH Intact Ur Specific [place] Urine WBC (Auto) U Epithel Cells (Auto) Urine Creatinine Urine Total Protein Coronavirus (PCR) Positive A 08/17/20 08/17/20 08/17/20 07:44 09:35 09:35 WBC RBC Hgb Hct MCH RDW Lymph % (Auto) Lymph # (Auto) [place] # (Auto) Seg Neutrophils % Seg Neuts % (Manual) Lymphocytes % (Manual) Seg Neutrophils # Lymphocytes # (Manual) D-Dimer Sodium Potassium Chloride Carbon Dioxide BUN Creatinine Glucose POC Glucose 188 H Hemoglobin A1c Calcium Phosphorus 5.90 H Ferritin AST Lactate Dehydrogenase C-Reactive Protein Total Protein Albumin PTH Intact 452.6 H Ur Specific [place] Urine WBC (Auto) U Epithel Cells (Auto) Urine Creatinine Urine Total Protein Coronavirus (PCR) 08/17/20 08/17/20 08/17/20 11:23 16:38 17:45 WBC RBC Hgb Hct MCH RDW Lymph % (Auto) Lymph # (Auto) [place] # (Auto) Seg Neutrophils % Seg Neuts % (Manual) Lymphocytes % (Manual) Seg Neutrophils # Lymphocytes # (Manual) D-Dimer Sodium Potassium Chloride Carbon Dioxide BUN Creatinine Glucose POC Glucose 205 H 212 H Hemoglobin A1c Calcium Phosphorus Ferritin AST Lactate Dehydrogenase C-Reactive Protein Total Protein Albumin PTH Intact Ur Specific [place] 1.039 H Urine WBC (Auto) 32.0 H U Epithel Cells (Auto) 44.0 H Urine Creatinine Urine Total Protein Coronavirus (PCR) 08/17/20 08/17/20 08/18/20 17:45 21:39 08:00 WBC RBC Hgb Hct MCH RDW Lymph % (Auto) Lymph # (Auto) [place] # (Auto) Seg Neutrophils % Seg Neuts % (Manual) Lymphocytes % (Manual) Seg Neutrophils # Lymphocytes # (Manual) D-Dimer Sodium Potassium Chloride Carbon Dioxide BUN Creatinine Glucose POC Glucose 206 H 229 H Hemoglobin A1c Calcium Phosphorus Ferritin AST Lactate Dehydrogenase C-Reactive Protein Total Protein Albumin PTH Intact Ur Specific [place] Urine WBC (Auto) U Epithel Cells (Auto) Urine Creatinine 248.0 H Urine Total Protein 196 H Coronavirus (PCR) 08/18/20 08/18/20 08/18/20 08:36 08:36 11:00 WBC RBC 3.64 L Hgb 10.0 L Hct MCH RDW 15.8 H Lymph % (Auto) 5.9 L Lymph # (Auto) 0.5 L [place] # (Auto) Seg Neutrophils % 87.3 H Seg Neuts % (Manual) Lymphocytes % (Manual) Seg Neutrophils # Lymphocytes # (Manual) D-Dimer Sodium 135 L D Potassium Chloride 95.8 L Carbon Dioxide 20 L BUN 84 H Creatinine 8.4 H Glucose 262 H POC Glucose 238 H Hemoglobin A1c Calcium 7.5 L Phosphorus Ferritin AST Lactate Dehydrogenase C-Reactive Protein Total Protein 6.1 L Albumin 2.5 L PTH Intact Ur Specific [place] Urine WBC (Auto) U Epithel Cells (Auto) Urine Creatinine Urine Total Protein Coronavirus (PCR) 08/18/20 08/18/20 08/19/20 16:14 21:52 04:23 WBC RBC 3.53 L Hgb 9.5 L Hct 30.0 L MCH 27 L RDW 15.6 H Lymph % (Auto) Lymph # (Auto) [place] # (Auto) Seg Neutrophils % Seg Neuts % (Manual) 84.0 H Lymphocytes % (Manual) 9.0 L Seg Neutrophils # Lymphocytes # (Manual) 0.5 L D-Dimer Sodium Potassium Chloride Carbon Dioxide BUN Creatinine Glucose POC Glucose 248 H 303 H Hemoglobin A1c Calcium Phosphorus Ferritin AST Lactate Dehydrogenase C-Reactive Protein Total Protein Albumin PTH Intact Ur Specific [place] Urine WBC (Auto) U Epithel Cells (Auto) Urine Creatinine Urine Total Protein Coronavirus (PCR) 08/19/20 08/19/20 08/19/20 04:23 06:44 11:53 WBC RBC Hgb Hct MCH RDW Lymph % (Auto) Lymph # (Auto) [place] # (Auto) Seg Neutrophils % Seg Neuts % (Manual) Lymphocytes % (Manual) Seg Neutrophils # Lymphocytes # (Manual) D-Dimer Sodium Potassium Chloride 97.2 L Carbon Dioxide BUN 86 H Creatinine 9.2 H Glucose 271 H POC Glucose 213 H 266 H Hemoglobin A1c Calcium 7.5 L Phosphorus Ferritin AST Lactate Dehydrogenase C-Reactive Protein Total Protein 5.8 L Albumin 2.5 L PTH Intact Ur Specific [place] Urine WBC (Auto) U Epithel Cells (Auto) Urine Creatinine Urine Total Protein Coronavirus (PCR) 08/19/20 08/19/20 08/19/20 16:58 16:58 16:58 WBC RBC Hgb Hct MCH RDW Lymph % (Auto) Lymph # (Auto) [place] # (Auto) Seg Neutrophils % Seg Neuts % (Manual) Lymphocytes % (Manual) Seg Neutrophils # Lymphocytes # (Manual) D-Dimer > 95559 H Sodium Potassium Chloride Carbon Dioxide BUN Creatinine Glucose POC Glucose Hemoglobin A1c Calcium Phosphorus Ferritin 1043.0 H AST Lactate Dehydrogenase 721 H C-Reactive Protein 3.00 H Total Protein Albumin PTH Intact Ur Specific [place] Urine WBC (Auto) U Epithel Cells (Auto) Urine Creatinine Urine Total Protein Coronavirus (PCR) 08/19/20 08/19/20 08/20/20 17:18 22:53 06:38 WBC RBC Hgb Hct MCH RDW Lymph % (Auto) Lymph # (Auto) [place] # (Auto) Seg Neutrophils % Seg Neuts % (Manual) Lymphocytes % (Manual) Seg Neutrophils # Lymphocytes # (Manual) D-Dimer Sodium Potassium Chloride Carbon Dioxide BUN Creatinine Glucose POC Glucose 223 H 273 H 268 H Hemoglobin A1c Calcium Phosphorus Ferritin AST Lactate Dehydrogenase C-Reactive Protein Total Protein Albumin PTH Intact Ur Specific [place] Urine WBC (Auto) U Epithel Cells (Auto) Urine Creatinine Urine Total Protein Coronavirus (PCR) 08/20/20 08/20/20 08/20/20 08:21 11:47 15:46 WBC RBC Hgb Hct MCH RDW Lymph % (Auto) Lymph # (Auto) [place] # (Auto) Seg Neutrophils % Seg Neuts % (Manual) Lymphocytes % (Manual) Seg Neutrophils # Lymphocytes # (Manual) D-Dimer Sodium Potassium Chloride Carbon Dioxide BUN Creatinine Glucose POC Glucose 264 H 288 H 262 H Hemoglobin A1c Calcium Phosphorus Ferritin AST Lactate Dehydrogenase C-Reactive Protein Total Protein Albumin PTH Intact Ur Specific [place] Urine WBC (Auto) U Epithel Cells (Auto) Urine Creatinine Urine Total Protein Coronavirus (PCR) 08/20/20 08/21/20 08/21/20 21:33 07:46 11:56 WBC RBC Hgb Hct MCH RDW Lymph % (Auto) Lymph # (Auto) [place] # (Auto) Seg Neutrophils % Seg Neuts % (Manual) Lymphocytes % (Manual) Seg Neutrophils # Lymphocytes # (Manual) D-Dimer Sodium Potassium Chloride Carbon Dioxide BUN Creatinine Glucose POC Glucose 274 H 249 H 227 H Hemoglobin A1c Calcium Phosphorus Ferritin AST Lactate Dehydrogenase C-Reactive Protein Total Protein Albumin PTH Intact Ur Specific [place] Urine WBC (Auto) U Epithel Cells (Auto) Urine Creatinine Urine Total Protein Coronavirus (PCR) 08/21/20 08/21/20 08/22/20 17:19 21:34 08:48 WBC RBC Hgb Hct MCH RDW Lymph % (Auto) Lymph # (Auto) [place] # (Auto) Seg Neutrophils % Seg Neuts % (Manual) Lymphocytes % (Manual) Seg Neutrophils # Lymphocytes # (Manual) D-Dimer Sodium Potassium Chloride Carbon Dioxide BUN Creatinine Glucose POC Glucose 318 H 286 H 257 H Hemoglobin A1c Calcium Phosphorus Ferritin AST Lactate Dehydrogenase C-Reactive Protein Total Protein Albumin PTH Intact Ur Specific [place] Urine WBC (Auto) U Epithel Cells (Auto) Urine Creatinine Urine Total Protein Coronavirus (PCR) 08/22/20 08/22/20 08/22/20 12:34 17:41 21:22 WBC RBC Hgb Hct MCH RDW Lymph % (Auto) Lymph # (Auto) [place] # (Auto) Seg Neutrophils % Seg Neuts % (Manual) Lymphocytes % (Manual) Seg Neutrophils # Lymphocytes # (Manual) D-Dimer Sodium Potassium Chloride Carbon Dioxide BUN Creatinine Glucose POC Glucose 324 H 283 H 308 H Hemoglobin A1c Calcium Phosphorus Ferritin AST Lactate Dehydrogenase C-Reactive Protein Total Protein Albumin PTH Intact Ur Specific [place] Urine WBC (Auto) U Epithel Cells (Auto) Urine Creatinine Urine Total Protein Coronavirus (PCR) 08/23/20 08/23/20 08/23/20 05:24 05:47 05:47 WBC 13.7 H RBC Hgb 9.9 L Hct MCH 27 L RDW Lymph % (Auto) Lymph # (Auto) [place] # (Auto) Seg Neutrophils % Seg Neuts % (Manual) Lymphocytes % (Manual) Seg Neutrophils # Lymphocytes # (Manual) D-Dimer Sodium 133 L Potassium Chloride 90.4 L Carbon Dioxide BUN 103 H Creatinine 9.5 H Glucose 346 H POC Glucose 297 H Hemoglobin A1c Calcium 7.9 L Phosphorus Ferritin AST Lactate Dehydrogenase C-Reactive Protein Total Protein Albumin PTH Intact Ur Specific [place] Urine WBC (Auto) U Epithel Cells (Auto) Urine Creatinine Urine Total Protein Coronavirus (PCR) 08/23/20 08/23/20 08/23/20 07:34 10:58 14:07 WBC RBC Hgb Hct MCH RDW Lymph % (Auto) Lymph # (Auto) [place] # (Auto) Seg Neutrophils % Seg Neuts % (Manual) Lymphocytes % (Manual) Seg Neutrophils # Lymphocytes # (Manual) D-Dimer > 75805 H Sodium Potassium Chloride Carbon Dioxide BUN Creatinine Glucose POC Glucose 276 H 334 H Hemoglobin A1c Calcium Phosphorus Ferritin AST Lactate Dehydrogenase C-Reactive Protein Total Protein Albumin PTH Intact Ur Specific [place] Urine WBC (Auto) U Epithel Cells (Auto) Urine Creatinine Urine Total Protein Coronavirus (PCR) 08/23/20 08/23/20 08/23/20 14:07 14:07 15:54 WBC RBC Hgb Hct MCH RDW Lymph % (Auto) Lymph # (Auto) [place] # (Auto) Seg Neutrophils % Seg Neuts % (Manual) Lymphocytes % (Manual) Seg Neutrophils # Lymphocytes # (Manual) D-Dimer Sodium Potassium Chloride Carbon Dioxide BUN Creatinine Glucose POC Glucose 248 H Hemoglobin A1c Calcium Phosphorus Ferritin 1053.0 H AST Lactate Dehydrogenase 994 H C-Reactive Protein Total Protein Albumin PTH Intact Ur Specific [place] Urine WBC (Auto) U Epithel Cells (Auto) Urine Creatinine Urine Total Protein Coronavirus (PCR) 08/23/20 08/24/20 08/24/20 21:18 06:06 06:06 WBC 17.9 H RBC Hgb 10.0 L Hct MCH 26 L RDW Lymph % (Auto) Lymph # (Auto) [place] # (Auto) Seg Neutrophils % Seg Neuts % (Manual) Lymphocytes % (Manual) Seg Neutrophils # Lymphocytes # (Manual) D-Dimer Sodium Potassium 5.2 H Chloride 94.8 L Carbon Dioxide BUN 79 H Creatinine 7.9 H Glucose 230 H POC Glucose 206 H Hemoglobin A1c Calcium 8.3 L Phosphorus Ferritin AST Lactate Dehydrogenase C-Reactive Protein Total Protein Albumin PTH Intact Ur Specific [place] Urine WBC (Auto) U Epithel Cells (Auto) Urine Creatinine Urine Total Protein Coronavirus (PCR) 08/24/20 08/24/20 08/24/20 07:44 11:31 15:51 WBC RBC Hgb Hct MCH RDW Lymph % (Auto) Lymph # (Auto) [place] # (Auto) Seg Neutrophils % Seg Neuts % (Manual) Lymphocytes % (Manual) Seg Neutrophils # Lymphocytes # (Manual) D-Dimer Sodium Potassium Chloride Carbon Dioxide BUN Creatinine Glucose POC Glucose 199 H 307 H 325 H Hemoglobin A1c Calcium Phosphorus Ferritin AST Lactate Dehydrogenase C-Reactive Protein Total Protein Albumin PTH Intact Ur Specific [place] Urine WBC (Auto) U Epithel Cells (Auto) Urine Creatinine Urine Total Protein Coronavirus (PCR) 08/24/20 08/25/20 08/25/20 21:43 08:08 08:14 WBC RBC Hgb Hct MCH RDW Lymph % (Auto) Lymph # (Auto) [place] # (Auto) Seg Neutrophils % Seg Neuts % (Manual) Lymphocytes % (Manual) Seg Neutrophils # Lymphocytes # (Manual) D-Dimer Sodium Potassium Chloride Carbon Dioxide BUN 65 H Creatinine 6.6 H Glucose 278 H POC Glucose 227 H 253 H Hemoglobin A1c Calcium Phosphorus Ferritin AST Lactate Dehydrogenase C-Reactive Protein Total Protein Albumin PTH Intact Ur Specific [place] Urine WBC (Auto) U Epithel Cells (Auto) Urine Creatinine Urine Total Protein Coronavirus (PCR) 08/25/20 08/25/20 08/25/20 08:14 10:53 16:18 WBC 19.0 H RBC Hgb Hct MCH 27 L RDW 15.8 H Lymph % (Auto) Lymph # (Auto) [place] # (Auto) Seg Neutrophils % Seg Neuts % (Manual) Lymphocytes % (Manual) Seg Neutrophils # Lymphocytes # (Manual) D-Dimer Sodium Potassium Chloride Carbon Dioxide BUN Creatinine Glucose POC Glucose 332 H 329 H Hemoglobin A1c Calcium Phosphorus Ferritin AST Lactate Dehydrogenase C-Reactive Protein Total Protein Albumin PTH Intact Ur Specific [place] Urine WBC (Auto) U Epithel Cells (Auto) Urine Creatinine Urine Total Protein Coronavirus (PCR) 08/25/20 08/26/20 08/26/20 21:52 01:10 08:21 WBC RBC Hgb Hct MCH RDW Lymph % (Auto) Lymph # (Auto) [place] # (Auto) Seg Neutrophils % Seg Neuts % (Manual) Lymphocytes % (Manual) Seg Neutrophils # Lymphocytes # (Manual) D-Dimer Sodium Potassium Chloride Carbon Dioxide BUN Creatinine Glucose POC Glucose 311 H 426 H 182 H Hemoglobin A1c Calcium Phosphorus Ferritin AST Lactate Dehydrogenase C-Reactive Protein Total Protein Albumin PTH Intact Ur Specific [place] Urine WBC (Auto) U Epithel Cells (Auto) Urine Creatinine Urine Total Protein Coronavirus (PCR) 08/26/20 08/26/20 08/26/20 10:38 11:05 16:36 WBC RBC Hgb Hct MCH RDW Lymph % (Auto) Lymph # (Auto) [place] # (Auto) Seg Neutrophils % Seg Neuts % (Manual) Lymphocytes % (Manual) Seg Neutrophils # Lymphocytes # (Manual) D-Dimer Sodium Potassium Chloride 95.5 L Carbon Dioxide BUN 95 H Creatinine 8.9 H Glucose 216 H POC Glucose 191 H 173 H Hemoglobin A1c Calcium Phosphorus Ferritin AST Lactate Dehydrogenase C-Reactive Protein Total Protein Albumin PTH Intact Ur Specific [place] Urine WBC (Auto) U Epithel Cells (Auto) Urine Creatinine Urine Total Protein Coronavirus (PCR) 08/26/20 08/27/20 08/27/20 22:22 06:13 07:36 WBC RBC Hgb Hct MCH RDW Lymph % (Auto) Lymph # (Auto) [place] # (Auto) Seg Neutrophils % Seg Neuts % (Manual) Lymphocytes % (Manual) Seg Neutrophils # Lymphocytes # (Manual) D-Dimer Sodium Potassium Chloride Carbon Dioxide BUN 61 H Creatinine 6.9 H Glucose 52 L POC Glucose 160 H 38 L Hemoglobin A1c Calcium Phosphorus Ferritin AST Lactate Dehydrogenase C-Reactive Protein Total Protein Albumin PTH Intact Ur Specific [place] Urine WBC (Auto) U Epithel Cells (Auto) Urine Creatinine Urine Total Protein Coronavirus (PCR) 08/27/20 08/27/20 08/27/20 08:19 10:56 16:07 WBC RBC Hgb Hct MCH RDW Lymph % (Auto) Lymph # (Auto) [place] # (Auto) Seg Neutrophils % Seg Neuts % (Manual) Lymphocytes % (Manual) Seg Neutrophils # Lymphocytes # (Manual) D-Dimer Sodium Potassium Chloride Carbon Dioxide BUN Creatinine Glucose POC Glucose 61 L 147 H 230 H Hemoglobin A1c Calcium Phosphorus Ferritin AST Lactate Dehydrogenase C-Reactive Protein Total Protein Albumin PTH Intact Ur Specific [place] Urine WBC (Auto) U Epithel Cells (Auto) Urine Creatinine Urine Total Protein Coronavirus (PCR) 08/27/20 08/28/20 08/28/20 21:31 07:23 07:28 WBC RBC Hgb Hct MCH RDW Lymph % (Auto) Lymph # (Auto) [place] # (Auto) Seg Neutrophils % Seg Neuts % (Manual) Lymphocytes % (Manual) Seg Neutrophils # Lymphocytes # (Manual) D-Dimer Sodium 136 L Potassium Chloride 96.4 L Carbon Dioxide BUN 47 H Creatinine 5.8 H Glucose 314 H POC Glucose 314 H 292 H Hemoglobin A1c Calcium 7.8 L Phosphorus Ferritin AST Lactate Dehydrogenase C-Reactive Protein Total Protein Albumin PTH Intact Ur Specific [place] Urine WBC (Auto) U Epithel Cells (Auto) Urine Creatinine Urine Total Protein Coronavirus (PCR) 08/28/20 08/28/20 08/28/20 11:10 16:28 21:44 WBC RBC Hgb Hct MCH RDW Lymph % (Auto) Lymph # (Auto) [place] # (Auto) Seg Neutrophils % Seg Neuts % (Manual) Lymphocytes % (Manual) Seg Neutrophils # Lymphocytes # (Manual) D-Dimer Sodium Potassium Chloride Carbon Dioxide BUN Creatinine Glucose POC Glucose 287 H 268 H 282 H Hemoglobin A1c Calcium Phosphorus Ferritin AST Lactate Dehydrogenase C-Reactive Protein Total Protein Albumin PTH Intact Ur Specific [place] Urine WBC (Auto) U Epithel Cells (Auto) Urine Creatinine Urine Total Protein Coronavirus (PCR) 08/29/20 08/29/20 08/29/20 06:42 08:18 11:14 WBC RBC Hgb Hct MCH RDW Lymph % (Auto) Lymph # (Auto) [place] # (Auto) Seg Neutrophils % Seg Neuts % (Manual) Lymphocytes % (Manual) Seg Neutrophils # Lymphocytes # (Manual) D-Dimer Sodium 135 L Potassium Chloride 95.9 L Carbon Dioxide BUN 72 H Creatinine 8.0 H Glucose 236 H POC Glucose 172 H 206 H Hemoglobin A1c Calcium 7.9 L Phosphorus Ferritin AST Lactate Dehydrogenase C-Reactive Protein Total Protein Albumin PTH Intact Ur Specific [place] Urine WBC (Auto) U Epithel Cells (Auto) Urine Creatinine Urine Total Protein Coronavirus (PCR) 08/29/20 08/30/20 08/30/20 16:23 00:02 07:36 WBC RBC Hgb Hct MCH RDW Lymph % (Auto) Lymph # (Auto) [place] # (Auto) Seg Neutrophils % Seg Neuts % (Manual) Lymphocytes % (Manual) Seg Neutrophils # Lymphocytes # (Manual) D-Dimer Sodium Potassium Chloride Carbon Dioxide BUN Creatinine Glucose POC Glucose 242 H 220 H 149 H Hemoglobin A1c Calcium Phosphorus Ferritin AST Lactate Dehydrogenase C-Reactive Protein Total Protein Albumin PTH Intact Ur Specific [place] Urine WBC (Auto) U Epithel Cells (Auto) Urine Creatinine Urine Total Protein Coronavirus (PCR) 08/30/20 08/30/20 08/30/20 10:54 15:18 21:47 WBC RBC Hgb Hct MCH RDW Lymph % (Auto) Lymph # (Auto) [place] # (Auto) Seg Neutrophils % Seg Neuts % (Manual) Lymphocytes % (Manual) Seg Neutrophils # Lymphocytes # (Manual) D-Dimer Sodium Potassium Chloride Carbon Dioxide BUN Creatinine Glucose POC Glucose 170 H 216 H 331 H Hemoglobin A1c Calcium Phosphorus Ferritin AST Lactate Dehydrogenase C-Reactive Protein Total Protein Albumin PTH Intact Ur Specific [place] Urine WBC (Auto) U Epithel Cells (Auto) Urine Creatinine Urine Total Protein Coronavirus (PCR) 08/31/20 08/31/20 08/31/20 07:09 07:09 11:45 WBC 14.7 H RBC 3.31 L Hgb 9.0 L Hct 28.2 L MCH 27 L RDW 15.9 H Lymph % (Auto) 5.4 L Lymph # (Auto) 0.8 L [place] # (Auto) 0.9 H Seg Neutrophils % 87.3 H Seg Neuts % (Manual) Lymphocytes % (Manual) Seg Neutrophils # 12.8 H Lymphocytes # (Manual) D-Dimer Sodium Potassium Chloride 95.3 L Carbon Dioxide BUN 71 H Creatinine 8.2 H Glucose 123 H POC Glucose 154 H Hemoglobin A1c Calcium 7.7 L Phosphorus Ferritin AST Lactate Dehydrogenase C-Reactive Protein Total Protein Albumin PTH Intact Ur Specific [place] Urine WBC (Auto) U Epithel Cells (Auto) Urine Creatinine Urine Total Protein Coronavirus (PCR)
--- NOTE | 2020-08-31 13:05 | Progress Note ---
Assessment and Plan Cultures: SARS CoV2 PCR: positive 08/15/2020 blood culture: No growth 08/17/2020 urine culture: Skin fay A/P: 64-year-old female with hypertension, diabetes, COPD, prior CVA, CKD was admitted to the hospital with cough and shortness of breath along with wheezing and headache going on for almost a month: #Bilateral pneumonia: secondary to COVID-19. Test was positive as outpatient as well. Symptomatic for a month. s/p empiric abx. Given prolonged symptoms and renal failure, unlikely to benefit from Remdesivir #Acute hypoxic respiratory failure: on HFNC. #ANGELIQUE on CKD: On intermittent HD per nephrology. #Mild transaminitis: Probably from COVID-19. Hepatitis panel negative. Resolved. #Leukocytosis: Likely secondary to steroids. Recs: -continue steroids, completed higher dose -s/p abx -on prophylactic anticoagulation per hospital protocol due elevated d-dimer Ryder Sparks MD [facility] ([facility] O: [phone] F: [phone] Subjective Date of service: 08/31/20 Principal diagnosis: Acute respiratory failure with hypoxia, ANGELIQUE superimposed onCKD, Covid pneum Interval history: Afebrile, white count of 14.7. Currently on 5 L nasal cannula. Objective - Exam Narrative Exam: Physical exam deferred due to PPE conservation strategy. Please refer to primary team's note. - Constitutional Vitals: Vital Signs Temp Pulse Resp BP Pulse Ox 98 F 88 20 98/55 100 08/31/20 12:55 08/31/20 12:55 08/31/20 12:55 08/31/20 12:55 08/31/20 12:55 Temperature -Last 24 Hours Temperature 98 F Temperature 97.3 F Temperature 98.4 F Temperature 98.0 F - Labs CBC & Chem 7: 08/31/20 07:09 08/31/20 07:09 Labs: Abnormal lab results 08/30/20 08/30/20 08/30/20 Range/Units 07:36 10:54 15:18 WBC (4.5-11.0) K/mm3 RBC (3.65-5.03) M/mm3 Hgb (10.1-14.3) gm/dl Hct (30.3-42.9) % MCH (28-32) pg RDW (13.2-15.2) % Lymph % (Auto) (13.4-35.0) % Lymph # (Auto) (1.2-5.4) K/mm3 Price # (Auto) (0.0-0.8) K/mm3 Seg Neutrophils % (40.0-70.0) % Seg Neutrophils # (1.8-7.7) K/mm3 Chloride (98-107) mmol/L BUN (7-17) mg/dL Creatinine (0.6-1.2) mg/dL Glucose (65-100) mg/dL POC Glucose 149 H 170 H 216 H (70-105) mg/dL Calcium (8.4-10.2) mg/dL 08/30/20 08/31/20 08/31/20 Range/Units 21:47 07:09 07:09 WBC 14.7 H (4.5-11.0) K/mm3 RBC 3.31 L (3.65-5.03) M/mm3 Hgb 9.0 L (10.1-14.3) gm/dl Hct 28.2 L (30.3-42.9) % MCH 27 L (28-32) pg RDW 15.9 H (13.2-15.2) % Lymph % (Auto) 5.4 L (13.4-35.0) % Lymph # (Auto) 0.8 L (1.2-5.4) K/mm3 Price # (Auto) 0.9 H (0.0-0.8) K/mm3 Seg Neutrophils % 87.3 H (40.0-70.0) % Seg Neutrophils # 12.8 H (1.8-7.7) K/mm3 Chloride 95.3 L (98-107) mmol/L BUN 71 H (7-17) mg/dL Creatinine 8.2 H (0.6-1.2) mg/dL Glucose 123 H (65-100) mg/dL POC Glucose 331 H (70-105) mg/dL Calcium 7.7 L (8.4-10.2) mg/dL 08/31/20 Range/Units 11:45 WBC (4.5-11.0) K/mm3 RBC (3.65-5.03) M/mm3 Hgb (10.1-14.3) gm/dl Hct (30.3-42.9) % MCH (28-32) pg RDW (13.2-15.2) % Lymph % (Auto) (13.4-35.0) % Lymph # (Auto) (1.2-5.4) K/mm3 Price # (Auto) (0.0-0.8) K/mm3 Seg Neutrophils % (40.0-70.0) % Seg Neutrophils # (1.8-7.7) K/mm3 Chloride (98-107) mmol/L BUN (7-17) mg/dL Creatinine (0.6-1.2) mg/dL Glucose (65-100) mg/dL POC Glucose 154 H (70-105) mg/dL Calcium (8.4-10.2) mg/dL
[2020-09-01] MEDS: BENZONATATE 100 MG CAP PO SCH ×3 (05:57→21:36)
[2020-09-01] MEDS: INSULIN LISPRO 100 UNIT/ML SUB-Q SCH ×4 (07:30→22:00)
[2020-09-01] MEDS: NYSTATIN 500,000 UNIT/5 ML ORAL LIQD PO SCH ×3 (08:00→21:35)
--- NOTE | 2020-09-01 09:02 | Progress Note ---
Assessment and Plan Impression: #Acute kidney injury: She was initially on daily dialysis and was then transitioned to intermittent dialysis. #Has underlying chronic kidney disease her baseline creatinine is around 1.7-[address] Rivers's office #Respiratory failure resulting from Covid 19 pneumonia + fluid overload- being followed by pulmonary service. UF with HD as tolerated. Limit fluid intake to 1L/d #Covid 19 viral pneumonia with ARDS like picture, patient has multiorgan failure Plan: #HD MWF #she will need ongoing renal replacement therapy as tolerated for now. Monitor labs and I/O daily. # Keep MAP> 65 # Renally dose medications # Renal diet arrange outpatient hd placement, Subjective Date of service: 09/01/20 Principal diagnosis: Acute respiratory failure with hypoxia, ANGELIQUE superimposed onCKD, Covid pneum Interval history: Subjective Date of service: 08/28/20 Principal diagnosis: Acute respiratory failure with hypoxia, ANGELIQUE superimposed onCKD, Covid pneum Interval history: Patient was seen for her renal issues Nursing, interdisciplinary and consult notes were reviewed Vitals, input and output, medications and labs were reviewed Objective - Exam Narrative Exam: deferred for preservation of ppe Objective - Vital Signs Vital signs: Vital Signs - 12hr 08/31/20 08/31/20 08/31/20 21:15 21:30 21:31 Temperature Pulse Rate 111 H 110 H 107 H Respiratory 20 Rate Blood Pressure 111/63 114/58 113/59 O2 Sat by Pulse 96 Oximetry 08/31/20 08/31/20 08/31/20 21:45 22:00 22:15 Temperature Pulse Rate 111 H 108 H 111 H Respiratory 17 Rate Blood Pressure 113/62 116/64 108/61 O2 Sat by Pulse Oximetry 08/31/20 08/31/20 08/31/20 22:16 22:30 22:45 Temperature Pulse Rate 111 H 117 H Respiratory Rate Blood Pressure 123/56 115/54 O2 Sat by Pulse 96 Oximetry 08/31/20 09/01/20 09/01/20 23:15 05:42 05:44 Temperature 98.2 F Pulse Rate 107 H Respiratory 20 Rate Blood Pressure 113/59 82/48 106/48 O2 Sat by Pulse Oximetry 09/01/20 09/01/20 05:45 08:52 Temperature 97.9 F Pulse Rate 102 H Respiratory 22 Rate Blood Pressure O2 Sat by Pulse 97 95 Oximetry - Lab 08/31/20 07:09 08/31/20 07:09 Most recent lab results Calcium 7.7 mg/dL (8.4-10.2) L 08/31/20 07:09 Phosphorus 5.90 mg/dL (2.5-4.5) H 08/17/20 09:35 Urine Creatinine 248.0 mg/dL (0.1-20.0) H 08/17/20 17:45 Urine Total Protein 196 mg/dL (5-11.8) H 08/17/20 17:45 Medications & Allergies - Medications Allergies/Adverse Reactions: Allergies gabapentin [From Neurontin] Allergy (Verified 08/15/20 17:25) Unknown rosuvastatin calcium [From Crestor] Allergy (Verified 08/15/20 17:25) Rash fluticasone propionate [From Advair Diskus] Adverse Reaction (Verified 08/15/20 17:25) Headache salmeterol xinafoate [From Advair Diskus] Adverse Reaction (Verified 08/15/20 17:25) Headache IV DYE Allergy (Uncoded 08/24/20 10:28) Itching Home Medications: Home Medications Medication Instructions Recorded Confirmed Last Taken Type Cyanocobalamin (Vitamin B-12) 1,000 mcg IJ QMONTH 08/15/20 08/15/20 Unknown History [Physicians Ez Use B-12] Ergocalciferol [Vitamin D2] 1 cap PO QWEEK 08/15/20 08/15/20 Unknown History Ezetimibe/Simvastatin 1 each PO DAILY 08/15/20 08/15/20 Unknown History [Ezetimibe-Simvastatin 10-20 mg] Famotidine [Pepcid] 40 mg PO DAILY 08/15/20 08/15/20 Unknown History Linagliptin [Tradjenta] 5 mg PO QDAY 08/15/20 08/15/20 Unknown History Omeprazole 40 mg PO DAILY 08/15/20 08/15/20 Unknown History allopurinoL [Zyloprim] 200 mg PO DAILY 08/15/20 08/15/20 Unknown History Spiriva 2.5 mcg INHALATION DAILY 08/17/20 08/17/20 Unknown History Symbicort 160-4.5 Mcg Inhaler 160 mcg INHALATION BID 08/17/20 08/17/20 Unknown History ALBUTEROL NEB's [Proventil 0.083% 2.5 mg IH Q6HRT PRN nebu 08/31/20 Unknown Rx NEBS] Apixaban [Eliquis] 5 mg PO Q12HR 7 Days 08/31/20 Unknown Rx Ascorbic Acid [Vitamin C] 1,000 mg PO BID tablet 08/31/20 Unknown Rx Benzonatate [Tessalon Perles] 100 mg PO Q8HR capsule 08/31/20 Unknown Rx Insulin Glargine [Lantus VIAL] 35 units SUB-Q BID units 08/31/20 Unknown Rx Lispro Insulin [HumaLOG] 0 unit SUB-Q ACHS units 08/31/20 Unknown Rx Nystatin [Nystatin SUSP] 400,000 unit PO TID 5 Days 08/31/20 Unknown Rx Zinc Sulfate 220 mg PO BID capsule 08/31/20 Unknown Rx calcitrioL [Rocaltrol] 0.25 mcg PO QDAY capsule 08/31/20 Unknown Rx Active Medications: Generic Name Dose Route Start Last Admin Trade Name Freq PRN Reason Stop Dose Admin Acetaminophen 650 mg 08/15/20 22:16 08/19/20 01:17 Acetaminophen 325 Mg Tab PO 650 mg Q4H PRN Administration Pain MILD(1-3)/Fever >100.5/TELLO Hydrocodone Bitart/Acetaminophen 1 each 08/15/20 22:06 08/23/20 17:22 Hydrocodone/Acetaminophen 5-325 Mg Tab PO 1 each Q6HR PRN Administration Pain, Moderate (4-6) Albuterol 2.5 mg 08/27/20 00:38 Albuterol 2.5 Mg/3 Ml Nebu IH 09/26/20 00:36 Q6HRT PRN Shortness Of Breath Apixaban 5 mg 08/24/20 11:00 08/31/20 21:33 Apixaban 5 Mg Tab PO 5 mg Q12HR SYLVAIN Administration Protocol Ascorbic Acid 1,000 mg 08/15/20 23:00 08/31/20 21:33 Ascorbic Acid 500 Mg Tab PO 1,000 mg BID SYLVAIN Administration Benzonatate 100 mg 08/25/20 14:00 09/01/20 05:57 Benzonatate 100 Mg Cap PO 100 mg Q8HR SYLVAIN Administration Calcitriol 0.25 mcg 08/18/20 10:00 08/31/20 10:37 Calcitriol 0.25 Mcg Cap PO 0.25 mcg QDAY SYLVAIN Administration Dextrose 25 ml 08/27/20 08:08 Dextrose 50% In Water (25gm) 50 Ml Syringe IV Q30MIN PRN HYPOGLYCEMIA Protocol Ezetimibe 10 mg 08/16/20 10:00 08/31/20 10:37 Ezetimibe 10 Mg Tab PO 10 mg DAILY SYLVAIN Administration Hydromorphone HCl 0.5 mg 08/15/20 22:16 Hydromorphone 1 Mg/1 Ml Inj IV Q3H PRN Pain , Severe (7-10) Sodium Chloride 100 mls @ 999 mls/hr 08/24/20 08:20 Nacl 0.9% IV SARAI PRN Hypotension Insulin Glargine 35 units 08/26/20 08:30 08/31/20 21:54 Insulin Glargine 100 Units/Ml SUB-Q 35 units BID SYLVAIN Administration Insulin Human Lispro 0 unit 08/18/20 13:23 08/31/20 21:53 Insulin Lispro 100 Unit/Ml SUB-Q 4 unit ACHS SYLVAIN Administration Protocol Linagliptin 5 mg 08/16/20 10:00 08/31/20 10:37 Linagliptin 5 Mg Tab PO 5 mg QDAY SYLVAIN Administration Metoclopramide HCl 5 mg 08/15/20 22:37 Metoclopramide 10 Mg/2 Ml Inj IV Q6H PRN Nausea And Vomiting Multivit/Ca Carb/B Cmplx/FA/Prenat 1 cap 08/18/20 10:00 08/31/20 10:37 Folic Acid/Vit B Comp W-C 1 Mg (Renal Caps) PO 1 cap DAILY SYLVAIN Administration Nystatin 400,000 unit 08/26/20 18:24 08/31/20 20:33 Nystatin 500,000 Unit/5 Ml Oral Liqd PO 400,000 unit TID SYLVAIN Administration Ondansetron HCl 4 mg 08/15/20 22:16 Ondansetron 4 Mg/2 Ml Inj IV Q8H PRN Nausea And Vomiting Oxycodone/Acetaminophen 1 tab 08/15/20 22:16 08/18/20 09:58 Oxycodone /Acetaminophen 5-325mg Tab PO 1 tab Q6H PRN Administration Pain, Moderate (4-6) Pantoprazole Sodium 40 mg 08/16/20 10:00 08/31/20 10:38 Pantoprazole 40 Mg Tab PO 40 mg DAILY SYLVAIN Administration Pravastatin Sodium 40 mg 08/16/20 10:00 08/31/20 10:39 Pravastatin 40 Mg Tab PO 40 mg DAILY SYLVAIN Administration Pseudoephedrine/Acetam/Chlorphenir 10 ml 08/18/20 10:30 08/23/20 17:21 Guaifenesin/Codeine 100-10mg Oral Liqd 5 Ml PO 10 ml Q4H PRN Administration Cough Sodium Chloride 10 ml 08/15/20 23:00 08/31/20 21:38 Sodium Chloride 0.9% 10 Ml Flush Syringe IV 10 ml BID SYLVAIN Administration Sodium Chloride 10 ml 08/15/20 22:16 Sodium Chloride 0.9% 10 Ml Flush Syringe IV PRN PRN LINE FLUSH Zinc Sulfate 220 mg 08/15/20 23:00 08/31/20 21:33 Zinc Sulfate 220 Mg Cap PO 220 mg BID SYLVAIN Administration
[2020-09-01] MEDS: ZINC SULFATE 220 MG CAP PO SCH ×2 (09:30→21:36)
[2020-09-01] MEDS: FOLIC ACID/VIT B COMP W-C 1 MG (RENAL CAPS) PO SCH (09:30)
[2020-09-01] MEDS: PRAVASTATIN 40 MG TAB PO SCH (09:30)
[2020-09-01] MEDS: CALCITRIOL 0.25 MCG CAP PO SCH (09:30)
[2020-09-01] MEDS: LINAGLIPTIN 5 MG TAB PO SCH (09:30)
[2020-09-01] MEDS: APIXABAN 5 MG TAB PO SCH ×2 (09:30→21:36)
[2020-09-01] MEDS: PANTOPRAZOLE 40 MG TAB PO SCH (09:31)
[2020-09-01] MEDS: EZETIMIBE 10 MG TAB PO SCH (09:31)
[2020-09-01] MEDS: ASCORBIC ACID 500 MG TAB PO SCH ×2 (09:31→21:35)
[2020-09-01] MEDS: INSULIN GLARGINE 100 UNITS/ML SUB-Q SCH ×2 (09:37→22:00)
--- NOTE | 2020-09-01 11:23 | Progress Note ---
Assessment and Plan Cultures: SARS CoV2 PCR: positive 08/15/2020 blood culture: No growth 08/17/2020 urine culture: Skin fay A/P: 64-year-old female with hypertension, diabetes, COPD, prior CVA, CKD was admitted to the hospital with cough and shortness of breath along with wheezing and headache going on for almost a month: #Bilateral pneumonia: secondary to COVID-19. Test was positive as outpatient as well. Symptomatic for a month. s/p empiric abx. Given prolonged symptoms and renal failure, unlikely to benefit from Remdesivir #Acute hypoxic respiratory failure: on HFNC. #ANGELIQUE on CKD: On intermittent HD per nephrology. #Mild transaminitis: Probably from COVID-19. Hepatitis panel negative. Resolved. #Leukocytosis: Likely secondary to steroids. Recs: -continue steroids, completed higher dose -s/p abx -on prophylactic anticoagulation per hospital protocol due elevated d-dimer Ryder Sparks MD [facility] ([facility] O: [phone] F: [phone] Subjective Date of service: 09/01/20 Principal diagnosis: Acute respiratory failure with hypoxia, ANGELIQUE superimposed onCKD, Covid pneum Interval history: Afebrile, no acute changes. Currently on 2 L nasal cannula. Significantly improved Objective - Exam Narrative Exam: Physical exam deferred due to PPE conservation strategy. Please refer to primary team's note. - Constitutional Vitals: Vital Signs Temp Pulse Resp BP Pulse Ox 97.9 F 102 H 22 106/48 95 09/01/20 05:45 09/01/20 05:45 09/01/20 05:45 09/01/20 05:44 09/01/20 08:52 Temperature -Last 24 Hours Temperature 97.9 F Temperature 98.2 F Temperature 98.2 F Temperature 98 F - Labs CBC & Chem 7: 08/31/20 07:09 08/31/20 07:09 Labs: Abnormal lab results 08/31/20 08/31/20 08/31/20 Range/Units 11:45 16:58 21:41 POC Glucose 154 H 279 H 237 H (70-105) mg/dL 09/01/20 Range/Units 07:57 POC Glucose 127 H (70-105) mg/dL
--- NOTE | 2020-09-01 12:06 | Progress Note ---
Assessment and Plan 64 y/o female with acute respiratory failure thought secondary to COVID, found to be positive 09/01/20: Suggest walk test and arrangement of home O2 if needed. Has finished steroid therapy. Resume home COPD regimen. No objection to discharge pulmonary [facility]. Follow up with Markus 14 days post discharge. Will see as needed. 08/31/20: Continue to wean FiO2 as tolerated. HD per renal. There is a discharge order in computer for today. If discharged, patient can follow up with Dr. Aparicio in 14 days from discharge. 08/30/20: Continue to wean FiO2 as tolerated. Hd per renal. Will continue to follow up. 08/28/20: Continue to wean FiO2 as tolerated. HD per renal. Proning if able. Prognosis remains guarded but promising given reduction in oxygen 08/27/20: Continue to wean FiO2 as tolerated. HD per renal. Prone as tole rated. Guarded prognosis. 08/25/20: Empirically started on anticoags, monitor renal function and coags and hgb. LAst day of steroids, however may need to extend out if oxygen requirement doesn't improve with continued HD and volume removal. Encourage to prone or some variation of this. Guarded prognosis. 08/24/20: Markers remain elevated. IMS concerned about clot. dopplers negative so they have cleared with renal for CTA. Oxygenation not worse and I am not sure how aggressive weaning has been. Will attempt to do better today. HD per renal. Continue high dose steroids. Guarded prognosis. 08/23/20: Agree with HD again today. Wean FiO2 for sats >88% and patient comfort. Continue steroids at current dosing. Lantus for sugars. Will observe on HD again today. If anything, and a bed is needed, can transfer to step down. 08/22/20: HD per renal. Patient has questions about why she is requiring HD, please address with her if possible. Hopeful she will have several HD sessions back to back as I feel a lot of her most recent decline is from volume. COntinue High dose steroids but will extend out to 10 days. Increase lantus to help with sugars. Can likely be transferred to step down or back to the floor. 08/19/20: Ordered PICC line for use during HD if patient requires vasopressors. Most likely increase in oxygen secondary to volume from lack of appropriate HD secondary to hypotension. Will give a couple amps of bicarb to see if this will help with blood pressure and can wills off pressor use. Continue steroids. Agree with ID on increasing the dose. Guarded prognosis 08/18/20: Prone as tolerated during day and sleep prone at night. Continue supplemental O2. Steroids for 10 days. Hold on nebs. Needs RT consult for documentation of oxygen therapy and requirements. 08/17/20: Found to be positive. Same recs as yesterday. Likely not a candidate for remdesivir given renal function. No nebulizer therapy, only inhaler therapy if and when needed. Continue supplemental O2 and proning is mcknight. Guarded prognosis given renal failure. 1. Follow up covid testing 2. Ok with current steroids 3. If patient brought in home inhalers, please allow pharmacy to verify and use them, no neb treatments 4. Prone during the day and and sleep prone at night as tolerated. Guarded prognosis. Subjective Date of service: 09/01/20 Principal diagnosis: Acute respiratory failure with hypoxia, ANGELIQUE superimposed onCKD, Covid pneum Interval history: No acute events. Down to 2 liters NC. Good sats. Objective Vital Signs - 12hr 09/01/20 09/01/20 09/01/20 05:42 05:44 05:45 Temperature 97.9 F Pulse Rate 102 H Respiratory 22 Rate Blood Pressure 82/48 106/48 O2 Sat by Pulse 97 Oximetry 09/01/20 08:52 Temperature Pulse Rate Respiratory Rate Blood Pressure O2 Sat by Pulse 95 Oximetry Constitutional: alert, other (obese, critically ill on ventilator) Eyes: non-icteric ENT: oropharynx moist Neck: supple Effort: normal Ascultation: Bilateral: diminished breath sounds Cardiovascular: regular rate and rhythm (no mrg) Gastrointestinal: normoactive bowel sounds, soft, non-tender, non-distended Integumentary: normal Extremities: no cyanosis, no edema Neurologic: normal mental status, non-focal exam Psychiatric: mood appropriate, affect normal CBC and BMP: 08/31/20 07:09 08/31/20 07:09 ABG, PT/INR, D-dimer: PT/INR, D-dimer D-Dimer > 23178 ng/mlDDU (0-234) H 08/23/20 14:07 Abnormal lab findings: Abnormal Labs 08/15/20 08/15/20 08/15/20 17:01 17:01 17:01 WBC RBC Hgb Hct MCH RDW 15.8 H Lymph % (Auto) 7.4 L Lymph # (Auto) 0.7 L [place] # (Auto) Seg Neutrophils % 85.1 H Seg Neuts % (Manual) Lymphocytes % (Manual) Seg Neutrophils # 7.9 H Lymphocytes # (Manual) D-Dimer 1750.12 H Sodium Potassium 5.1 H Chloride 97.1 L Carbon Dioxide BUN 67 H Creatinine 4.8 H Glucose 101 H POC Glucose Hemoglobin A1c Calcium Phosphorus Ferritin AST 53 H Lactate Dehydrogenase C-Reactive Protein Total Protein Albumin 3.4 L PTH Intact Ur Specific [place] Urine WBC (Auto) U Epithel Cells (Auto) Urine Creatinine Urine Total Protein Coronavirus (PCR) 08/15/20 08/15/20 08/15/20 17:01 17:01 17:01 WBC RBC Hgb Hct MCH RDW Lymph % (Auto) Lymph # (Auto) [place] # (Auto) Seg Neutrophils % Seg Neuts % (Manual) Lymphocytes % (Manual) Seg Neutrophils # Lymphocytes # (Manual) D-Dimer Sodium Potassium Chloride Carbon Dioxide BUN Creatinine Glucose 101 H POC Glucose Hemoglobin A1c Calcium Phosphorus Ferritin 667.2 H AST Lactate Dehydrogenase 606 H 567 H C-Reactive Protein 4.60 H 6.30 H Total Protein Albumin PTH Intact Ur Specific [place] Urine WBC (Auto) U Epithel Cells (Auto) Urine Creatinine Urine Total Protein Coronavirus (PCR) 08/16/20 08/16/20 08/16/20 04:32 04:32 04:32 WBC RBC Hgb Hct MCH 27 L RDW 15.9 H Lymph % (Auto) 12.6 L Lymph # (Auto) 0.8 L [place] # (Auto) Seg Neutrophils % 83.7 H Seg Neuts % (Manual) Lymphocytes % (Manual) Seg Neutrophils # Lymphocytes # (Manual) D-Dimer Sodium 136 L Potassium 6.7 H* D Chloride Carbon Dioxide BUN 78 H Creatinine 6.2 H Glucose 223 H POC Glucose Hemoglobin A1c 7.6 H Calcium 7.8 L Phosphorus Ferritin AST 47 H Lactate Dehydrogenase C-Reactive Protein Total Protein 5.8 L D Albumin 3.1 L PTH Intact Ur Specific [place] Urine WBC (Auto) U Epithel Cells (Auto) Urine Creatinine Urine Total Protein Coronavirus (PCR) 08/16/20 08/16/20 08/16/20 17:01 17:05 21:41 WBC RBC Hgb Hct MCH RDW Lymph % (Auto) Lymph # (Auto) [place] # (Auto) Seg Neutrophils % Seg Neuts % (Manual) Lymphocytes % (Manual) Seg Neutrophils # Lymphocytes # (Manual) D-Dimer Sodium Potassium Chloride Carbon Dioxide BUN 93 H Creatinine 7.7 H Glucose 228 H POC Glucose 150 H 204 H Hemoglobin A1c Calcium Phosphorus Ferritin AST Lactate Dehydrogenase C-Reactive Protein Total Protein Albumin PTH Intact Ur Specific [place] Urine WBC (Auto) U Epithel Cells (Auto) Urine Creatinine Urine Total Protein Coronavirus (PCR) 08/16/20 08/17/20 08/17/20 Unknown 07:31 07:31 WBC RBC Hgb Hct MCH 27 L RDW 16.0 H Lymph % (Auto) 4.2 L Lymph # (Auto) 0.4 L [place] # (Auto) Seg Neutrophils % 90.0 H Seg Neuts % (Manual) Lymphocytes % (Manual) Seg Neutrophils # 8.8 H Lymphocytes # (Manual) D-Dimer Sodium Potassium 5.8 H D Chloride Carbon Dioxide 20 L BUN 103 H Creatinine 9.0 H Glucose 219 H POC Glucose Hemoglobin A1c Calcium 7.9 L Phosphorus Ferritin AST Lactate Dehydrogenase C-Reactive Protein Total Protein Albumin PTH Intact Ur Specific [place] Urine WBC (Auto) U Epithel Cells (Auto) Urine Creatinine Urine Total Protein Coronavirus (PCR) Positive A 08/17/20 08/17/20 08/17/20 07:44 09:35 09:35 WBC RBC Hgb Hct MCH RDW Lymph % (Auto) Lymph # (Auto) [place] # (Auto) Seg Neutrophils % Seg Neuts % (Manual) Lymphocytes % (Manual) Seg Neutrophils # Lymphocytes # (Manual) D-Dimer Sodium Potassium Chloride Carbon Dioxide BUN Creatinine Glucose POC Glucose 188 H Hemoglobin A1c Calcium Phosphorus 5.90 H Ferritin AST Lactate Dehydrogenase C-Reactive Protein Total Protein Albumin PTH Intact 452.6 H Ur Specific [place] Urine WBC (Auto) U Epithel Cells (Auto) Urine Creatinine Urine Total Protein Coronavirus (PCR) 08/17/20 08/17/20 08/17/20 11:23 16:38 17:45 WBC RBC Hgb Hct MCH RDW Lymph % (Auto) Lymph # (Auto) [place] # (Auto) Seg Neutrophils % Seg Neuts % (Manual) Lymphocytes % (Manual) Seg Neutrophils # Lymphocytes # (Manual) D-Dimer Sodium Potassium Chloride Carbon Dioxide BUN Creatinine Glucose POC Glucose 205 H 212 H Hemoglobin A1c Calcium Phosphorus Ferritin AST Lactate Dehydrogenase C-Reactive Protein Total Protein Albumin PTH Intact Ur Specific [place] 1.039 H Urine WBC (Auto) 32.0 H U Epithel Cells (Auto) 44.0 H Urine Creatinine Urine Total Protein Coronavirus (PCR) 08/17/20 08/17/20 08/18/20 17:45 21:39 08:00 WBC RBC Hgb Hct MCH RDW Lymph % (Auto) Lymph # (Auto) [place] # (Auto) Seg Neutrophils % Seg Neuts % (Manual) Lymphocytes % (Manual) Seg Neutrophils # Lymphocytes # (Manual) D-Dimer Sodium Potassium Chloride Carbon Dioxide BUN Creatinine Glucose POC Glucose 206 H 229 H Hemoglobin A1c Calcium Phosphorus Ferritin AST Lactate Dehydrogenase C-Reactive Protein Total Protein Albumin PTH Intact Ur Specific [place] Urine WBC (Auto) U Epithel Cells (Auto) Urine Creatinine 248.0 H Urine Total Protein 196 H Coronavirus (PCR) 08/18/20 08/18/20 08/18/20 08:36 08:36 11:00 WBC RBC 3.64 L Hgb 10.0 L Hct MCH RDW 15.8 H Lymph % (Auto) 5.9 L Lymph # (Auto) 0.5 L [place] # (Auto) Seg Neutrophils % 87.3 H Seg Neuts % (Manual) Lymphocytes % (Manual) Seg Neutrophils # Lymphocytes # (Manual) D-Dimer Sodium 135 L D Potassium Chloride 95.8 L Carbon Dioxide 20 L BUN 84 H Creatinine 8.4 H Glucose 262 H POC Glucose 238 H Hemoglobin A1c Calcium 7.5 L Phosphorus Ferritin AST Lactate Dehydrogenase C-Reactive Protein Total Protein 6.1 L Albumin 2.5 L PTH Intact Ur Specific [place] Urine WBC (Auto) U Epithel Cells (Auto) Urine Creatinine Urine Total Protein Coronavirus (PCR) 08/18/20 08/18/20 08/19/20 16:14 21:52 04:23 WBC RBC 3.53 L Hgb 9.5 L Hct 30.0 L MCH 27 L RDW 15.6 H Lymph % (Auto) Lymph # (Auto) [place] # (Auto) Seg Neutrophils % Seg Neuts % (Manual) 84.0 H Lymphocytes % (Manual) 9.0 L Seg Neutrophils # Lymphocytes # (Manual) 0.5 L D-Dimer Sodium Potassium Chloride Carbon Dioxide BUN Creatinine Glucose POC Glucose 248 H 303 H Hemoglobin A1c Calcium Phosphorus Ferritin AST Lactate Dehydrogenase C-Reactive Protein Total Protein Albumin PTH Intact Ur Specific [place] Urine WBC (Auto) U Epithel Cells (Auto) Urine Creatinine Urine Total Protein Coronavirus (PCR) 08/19/20 08/19/20 08/19/20 04:23 06:44 11:53 WBC RBC Hgb Hct MCH RDW Lymph % (Auto) Lymph # (Auto) [place] # (Auto) Seg Neutrophils % Seg Neuts % (Manual) Lymphocytes % (Manual) Seg Neutrophils # Lymphocytes # (Manual) D-Dimer Sodium Potassium Chloride 97.2 L Carbon Dioxide BUN 86 H Creatinine 9.2 H Glucose 271 H POC Glucose 213 H 266 H Hemoglobin A1c Calcium 7.5 L Phosphorus Ferritin AST Lactate Dehydrogenase C-Reactive Protein Total Protein 5.8 L Albumin 2.5 L PTH Intact Ur Specific [place] Urine WBC (Auto) U Epithel Cells (Auto) Urine Creatinine Urine Total Protein Coronavirus (PCR) 08/19/20 08/19/20 08/19/20 16:58 16:58 16:58 WBC RBC Hgb Hct MCH RDW Lymph % (Auto) Lymph # (Auto) [place] # (Auto) Seg Neutrophils % Seg Neuts % (Manual) Lymphocytes % (Manual) Seg Neutrophils # Lymphocytes # (Manual) D-Dimer > 48942 H Sodium Potassium Chloride Carbon Dioxide BUN Creatinine Glucose POC Glucose Hemoglobin A1c Calcium Phosphorus Ferritin 1043.0 H AST Lactate Dehydrogenase 721 H C-Reactive Protein 3.00 H Total Protein Albumin PTH Intact Ur Specific [place] Urine WBC (Auto) U Epithel Cells (Auto) Urine Creatinine Urine Total Protein Coronavirus (PCR) 08/19/20 08/19/20 08/20/20 17:18 22:53 06:38 WBC RBC Hgb Hct MCH RDW Lymph % (Auto) Lymph # (Auto) [place] # (Auto) Seg Neutrophils % Seg Neuts % (Manual) Lymphocytes % (Manual) Seg Neutrophils # Lymphocytes # (Manual) D-Dimer Sodium Potassium Chloride Carbon Dioxide BUN Creatinine Glucose POC Glucose 223 H 273 H 268 H Hemoglobin A1c Calcium Phosphorus Ferritin AST Lactate Dehydrogenase C-Reactive Protein Total Protein Albumin PTH Intact Ur Specific [place] Urine WBC (Auto) U Epithel Cells (Auto) Urine Creatinine Urine Total Protein Coronavirus (PCR) 08/20/20 08/20/20 08/20/20 08:21 11:47 15:46 WBC RBC Hgb Hct MCH RDW Lymph % (Auto) Lymph # (Auto) [place] # (Auto) Seg Neutrophils % Seg Neuts % (Manual) Lymphocytes % (Manual) Seg Neutrophils # Lymphocytes # (Manual) D-Dimer Sodium Potassium Chloride Carbon Dioxide BUN Creatinine Glucose POC Glucose 264 H 288 H 262 H Hemoglobin A1c Calcium Phosphorus Ferritin AST Lactate Dehydrogenase C-Reactive Protein Total Protein Albumin PTH Intact Ur Specific [place] Urine WBC (Auto) U Epithel Cells (Auto) Urine Creatinine Urine Total Protein Coronavirus (PCR) 08/20/20 08/21/20 08/21/20 21:33 07:46 11:56 WBC RBC Hgb Hct MCH RDW Lymph % (Auto) Lymph # (Auto) [place] # (Auto) Seg Neutrophils % Seg Neuts % (Manual) Lymphocytes % (Manual) Seg Neutrophils # Lymphocytes # (Manual) D-Dimer Sodium Potassium Chloride Carbon Dioxide BUN Creatinine Glucose POC Glucose 274 H 249 H 227 H Hemoglobin A1c Calcium Phosphorus Ferritin AST Lactate Dehydrogenase C-Reactive Protein Total Protein Albumin PTH Intact Ur Specific [place] Urine WBC (Auto) U Epithel Cells (Auto) Urine Creatinine Urine Total Protein Coronavirus (PCR) 08/21/20 08/21/20 08/22/20 17:19 21:34 08:48 WBC RBC Hgb Hct MCH RDW Lymph % (Auto) Lymph # (Auto) [place] # (Auto) Seg Neutrophils % Seg Neuts % (Manual) Lymphocytes % (Manual) Seg Neutrophils # Lymphocytes # (Manual) D-Dimer Sodium Potassium Chloride Carbon Dioxide BUN Creatinine Glucose POC Glucose 318 H 286 H 257 H Hemoglobin A1c Calcium Phosphorus Ferritin AST Lactate Dehydrogenase C-Reactive Protein Total Protein Albumin PTH Intact Ur Specific [place] Urine WBC (Auto) U Epithel Cells (Auto) Urine Creatinine Urine Total Protein Coronavirus (PCR) 08/22/20 08/22/20 08/22/20 12:34 17:41 21:22 WBC RBC Hgb Hct MCH RDW Lymph % (Auto) Lymph # (Auto) [place] # (Auto) Seg Neutrophils % Seg Neuts % (Manual) Lymphocytes % (Manual) Seg Neutrophils # Lymphocytes # (Manual) D-Dimer Sodium Potassium Chloride Carbon Dioxide BUN Creatinine Glucose POC Glucose 324 H 283 H 308 H Hemoglobin A1c Calcium Phosphorus Ferritin AST Lactate Dehydrogenase C-Reactive Protein Total Protein Albumin PTH Intact Ur Specific [place] Urine WBC (Auto) U Epithel Cells (Auto) Urine Creatinine Urine Total Protein Coronavirus (PCR) 08/23/20 08/23/20 08/23/20 05:24 05:47 05:47 WBC 13.7 H RBC Hgb 9.9 L Hct MCH 27 L RDW Lymph % (Auto) Lymph # (Auto) [place] # (Auto) Seg Neutrophils % Seg Neuts % (Manual) Lymphocytes % (Manual) Seg Neutrophils # Lymphocytes # (Manual) D-Dimer Sodium 133 L Potassium Chloride 90.4 L Carbon Dioxide BUN 103 H Creatinine 9.5 H Glucose 346 H POC Glucose 297 H Hemoglobin A1c Calcium 7.9 L Phosphorus Ferritin AST Lactate Dehydrogenase C-Reactive Protein Total Protein Albumin PTH Intact Ur Specific [place] Urine WBC (Auto) U Epithel Cells (Auto) Urine Creatinine Urine Total Protein Coronavirus (PCR) 08/23/20 08/23/20 08/23/20 07:34 10:58 14:07 WBC RBC Hgb Hct MCH RDW Lymph % (Auto) Lymph # (Auto) [place] # (Auto) Seg Neutrophils % Seg Neuts % (Manual) Lymphocytes % (Manual) Seg Neutrophils # Lymphocytes # (Manual) D-Dimer > 80896 H Sodium Potassium Chloride Carbon Dioxide BUN Creatinine Glucose POC Glucose 276 H 334 H Hemoglobin A1c Calcium Phosphorus Ferritin AST Lactate Dehydrogenase C-Reactive Protein Total Protein Albumin PTH Intact Ur Specific [place] Urine WBC (Auto) U Epithel Cells (Auto) Urine Creatinine Urine Total Protein Coronavirus (PCR) 08/23/20 08/23/20 08/23/20 14:07 14:07 15:54 WBC RBC Hgb Hct MCH RDW Lymph % (Auto) Lymph # (Auto) [place] # (Auto) Seg Neutrophils % Seg Neuts % (Manual) Lymphocytes % (Manual) Seg Neutrophils # Lymphocytes # (Manual) D-Dimer Sodium Potassium Chloride Carbon Dioxide BUN Creatinine Glucose POC Glucose 248 H Hemoglobin A1c Calcium Phosphorus Ferritin 1053.0 H AST Lactate Dehydrogenase 994 H C-Reactive Protein Total Protein Albumin PTH Intact Ur Specific [place] Urine WBC (Auto) U Epithel Cells (Auto) Urine Creatinine Urine Total Protein Coronavirus (PCR) 08/23/20 08/24/20 08/24/20 21:18 06:06 06:06 WBC 17.9 H RBC Hgb 10.0 L Hct MCH 26 L RDW Lymph % (Auto) Lymph # (Auto) [place] # (Auto) Seg Neutrophils % Seg Neuts % (Manual) Lymphocytes % (Manual) Seg Neutrophils # Lymphocytes # (Manual) D-Dimer Sodium Potassium 5.2 H Chloride 94.8 L Carbon Dioxide BUN 79 H Creatinine 7.9 H Glucose 230 H POC Glucose 206 H Hemoglobin A1c Calcium 8.3 L Phosphorus Ferritin AST Lactate Dehydrogenase C-Reactive Protein Total Protein Albumin PTH Intact Ur Specific [place] Urine WBC (Auto) U Epithel Cells (Auto) Urine Creatinine Urine Total Protein Coronavirus (PCR) 08/24/20 08/24/20 08/24/20 07:44 11:31 15:51 WBC RBC Hgb Hct MCH RDW Lymph % (Auto) Lymph # (Auto) [place] # (Auto) Seg Neutrophils % Seg Neuts % (Manual) Lymphocytes % (Manual) Seg Neutrophils # Lymphocytes # (Manual) D-Dimer Sodium Potassium Chloride Carbon Dioxide BUN Creatinine Glucose POC Glucose 199 H 307 H 325 H Hemoglobin A1c Calcium Phosphorus Ferritin AST Lactate Dehydrogenase C-Reactive Protein Total Protein Albumin PTH Intact Ur Specific [place] Urine WBC (Auto) U Epithel Cells (Auto) Urine Creatinine Urine Total Protein Coronavirus (PCR) 08/24/20 08/25/20 08/25/20 21:43 08:08 08:14 WBC RBC Hgb Hct MCH RDW Lymph % (Auto) Lymph # (Auto) [place] # (Auto) Seg Neutrophils % Seg Neuts % (Manual) Lymphocytes % (Manual) Seg Neutrophils # Lymphocytes # (Manual) D-Dimer Sodium Potassium Chloride Carbon Dioxide BUN 65 H Creatinine 6.6 H Glucose 278 H POC Glucose 227 H 253 H Hemoglobin A1c Calcium Phosphorus Ferritin AST Lactate Dehydrogenase C-Reactive Protein Total Protein Albumin PTH Intact Ur Specific [place] Urine WBC (Auto) U Epithel Cells (Auto) Urine Creatinine Urine Total Protein Coronavirus (PCR) 08/25/20 08/25/20 08/25/20 08:14 10:53 16:18 WBC 19.0 H RBC Hgb Hct MCH 27 L RDW 15.8 H Lymph % (Auto) Lymph # (Auto) [place] # (Auto) Seg Neutrophils % Seg Neuts % (Manual) Lymphocytes % (Manual) Seg Neutrophils # Lymphocytes # (Manual) D-Dimer Sodium Potassium Chloride Carbon Dioxide BUN Creatinine Glucose POC Glucose 332 H 329 H Hemoglobin A1c Calcium Phosphorus Ferritin AST Lactate Dehydrogenase C-Reactive Protein Total Protein Albumin PTH Intact Ur Specific [place] Urine WBC (Auto) U Epithel Cells (Auto) Urine Creatinine Urine Total Protein Coronavirus (PCR) 08/25/20 08/26/20 08/26/20 21:52 01:10 08:21 WBC RBC Hgb Hct MCH RDW Lymph % (Auto) Lymph # (Auto) [place] # (Auto) Seg Neutrophils % Seg Neuts % (Manual) Lymphocytes % (Manual) Seg Neutrophils # Lymphocytes # (Manual) D-Dimer Sodium Potassium Chloride Carbon Dioxide BUN Creatinine Glucose POC Glucose 311 H 426 H 182 H Hemoglobin A1c Calcium Phosphorus Ferritin AST Lactate Dehydrogenase C-Reactive Protein Total Protein Albumin PTH Intact Ur Specific [place] Urine WBC (Auto) U Epithel Cells (Auto) Urine Creatinine Urine Total Protein Coronavirus (PCR) 08/26/20 08/26/20 08/26/20 10:38 11:05 16:36 WBC RBC Hgb Hct MCH RDW Lymph % (Auto) Lymph # (Auto) [place] # (Auto) Seg Neutrophils % Seg Neuts % (Manual) Lymphocytes % (Manual) Seg Neutrophils # Lymphocytes # (Manual) D-Dimer Sodium Potassium Chloride 95.5 L Carbon Dioxide BUN 95 H Creatinine 8.9 H Glucose 216 H POC Glucose 191 H 173 H Hemoglobin A1c Calcium Phosphorus Ferritin AST Lactate Dehydrogenase C-Reactive Protein Total Protein Albumin PTH Intact Ur Specific [place] Urine WBC (Auto) U Epithel Cells (Auto) Urine Creatinine Urine Total Protein Coronavirus (PCR) 08/26/20 08/27/20 08/27/20 22:22 06:13 07:36 WBC RBC Hgb Hct MCH RDW Lymph % (Auto) Lymph # (Auto) [place] # (Auto) Seg Neutrophils % Seg Neuts % (Manual) Lymphocytes % (Manual) Seg Neutrophils # Lymphocytes # (Manual) D-Dimer Sodium Potassium Chloride Carbon Dioxide BUN 61 H Creatinine 6.9 H Glucose 52 L POC Glucose 160 H 38 L Hemoglobin A1c Calcium Phosphorus Ferritin AST Lactate Dehydrogenase C-Reactive Protein Total Protein Albumin PTH Intact Ur Specific [place] Urine WBC (Auto) U Epithel Cells (Auto) Urine Creatinine Urine Total Protein Coronavirus (PCR) 08/27/20 08/27/20 08/27/20 08:19 10:56 16:07 WBC RBC Hgb Hct MCH RDW Lymph % (Auto) Lymph # (Auto) [place] # (Auto) Seg Neutrophils % Seg Neuts % (Manual) Lymphocytes % (Manual) Seg Neutrophils # Lymphocytes # (Manual) D-Dimer Sodium Potassium Chloride Carbon Dioxide BUN Creatinine Glucose POC Glucose 61 L 147 H 230 H Hemoglobin A1c Calcium Phosphorus Ferritin AST Lactate Dehydrogenase C-Reactive Protein Total Protein Albumin PTH Intact Ur Specific [place] Urine WBC (Auto) U Epithel Cells (Auto) Urine Creatinine Urine Total Protein Coronavirus (PCR) 08/27/20 08/28/20 08/28/20 21:31 07:23 07:28 WBC RBC Hgb Hct MCH RDW Lymph % (Auto) Lymph # (Auto) [place] # (Auto) Seg Neutrophils % Seg Neuts % (Manual) Lymphocytes % (Manual) Seg Neutrophils # Lymphocytes # (Manual) D-Dimer Sodium 136 L Potassium Chloride 96.4 L Carbon Dioxide BUN 47 H Creatinine 5.8 H Glucose 314 H POC Glucose 314 H 292 H Hemoglobin A1c Calcium 7.8 L Phosphorus Ferritin AST Lactate Dehydrogenase C-Reactive Protein Total Protein Albumin PTH Intact Ur Specific [place] Urine WBC (Auto) U Epithel Cells (Auto) Urine Creatinine Urine Total Protein Coronavirus (PCR) 08/28/20 08/28/20 08/28/20 11:10 16:28 21:44 WBC RBC Hgb Hct MCH RDW Lymph % (Auto) Lymph # (Auto) [place] # (Auto) Seg Neutrophils % Seg Neuts % (Manual) Lymphocytes % (Manual) Seg Neutrophils # Lymphocytes # (Manual) D-Dimer Sodium Potassium Chloride Carbon Dioxide BUN Creatinine Glucose POC Glucose 287 H 268 H 282 H Hemoglobin A1c Calcium Phosphorus Ferritin AST Lactate Dehydrogenase C-Reactive Protein Total Protein Albumin PTH Intact Ur Specific [place] Urine WBC (Auto) U Epithel Cells (Auto) Urine Creatinine Urine Total Protein Coronavirus (PCR) 08/29/20 08/29/20 08/29/20 06:42 08:18 11:14 WBC RBC Hgb Hct MCH RDW Lymph % (Auto) Lymph # (Auto) [place] # (Auto) Seg Neutrophils % Seg Neuts % (Manual) Lymphocytes % (Manual) Seg Neutrophils # Lymphocytes # (Manual) D-Dimer Sodium 135 L Potassium Chloride 95.9 L Carbon Dioxide BUN 72 H Creatinine 8.0 H Glucose 236 H POC Glucose 172 H 206 H Hemoglobin A1c Calcium 7.9 L Phosphorus Ferritin AST Lactate Dehydrogenase C-Reactive Protein Total Protein Albumin PTH Intact Ur Specific [place] Urine WBC (Auto) U Epithel Cells (Auto) Urine Creatinine Urine Total Protein Coronavirus (PCR) 08/29/20 08/30/20 08/30/20 16:23 00:02 07:36 WBC RBC Hgb Hct MCH RDW Lymph % (Auto) Lymph # (Auto) [place] # (Auto) Seg Neutrophils % Seg Neuts % (Manual) Lymphocytes % (Manual) Seg Neutrophils # Lymphocytes # (Manual) D-Dimer Sodium Potassium Chloride Carbon Dioxide BUN Creatinine Glucose POC Glucose 242 H 220 H 149 H Hemoglobin A1c Calcium Phosphorus Ferritin AST Lactate Dehydrogenase C-Reactive Protein Total Protein Albumin PTH Intact Ur Specific [place] Urine WBC (Auto) U Epithel Cells (Auto) Urine Creatinine Urine Total Protein Coronavirus (PCR) 08/30/20 08/30/20 08/30/20 10:54 15:18 21:47 WBC RBC Hgb Hct MCH RDW Lymph % (Auto) Lymph # (Auto) [place] # (Auto) Seg Neutrophils % Seg Neuts % (Manual) Lymphocytes % (Manual) Seg Neutrophils # Lymphocytes # (Manual) D-Dimer Sodium Potassium Chloride Carbon Dioxide BUN Creatinine Glucose POC Glucose 170 H 216 H 331 H Hemoglobin A1c Calcium Phosphorus Ferritin AST Lactate Dehydrogenase C-Reactive Protein Total Protein Albumin PTH Intact Ur Specific [place] Urine WBC (Auto) U Epithel Cells (Auto) Urine Creatinine Urine Total Protein Coronavirus (PCR) 08/31/20 08/31/20 08/31/20 07:09 07:09 11:45 WBC 14.7 H RBC 3.31 L Hgb 9.0 L Hct 28.2 L MCH 27 L RDW 15.9 H Lymph % (Auto) 5.4 L Lymph # (Auto) 0.8 L [place] # (Auto) 0.9 H Seg Neutrophils % 87.3 H Seg Neuts % (Manual) Lymphocytes % (Manual) Seg Neutrophils # 12.8 H Lymphocytes # (Manual) D-Dimer Sodium Potassium Chloride 95.3 L Carbon Dioxide BUN 71 H Creatinine 8.2 H Glucose 123 H POC Glucose 154 H Hemoglobin A1c Calcium 7.7 L Phosphorus Ferritin AST Lactate Dehydrogenase C-Reactive Protein Total Protein Albumin PTH Intact Ur Specific [place] Urine WBC (Auto) U Epithel Cells (Auto) Urine Creatinine Urine Total Protein Coronavirus (PCR) 08/31/20 08/31/20 09/01/20 16:58 21:41 07:57 WBC RBC Hgb Hct MCH RDW Lymph % (Auto) Lymph # (Auto) [place] # (Auto) Seg Neutrophils % Seg Neuts % (Manual) Lymphocytes % (Manual) Seg Neutrophils # Lymphocytes # (Manual) D-Dimer Sodium Potassium Chloride Carbon Dioxide BUN Creatinine Glucose POC Glucose 279 H 237 H 127 H Hemoglobin A1c Calcium Phosphorus Ferritin AST Lactate Dehydrogenase C-Reactive Protein Total Protein Albumin PTH Intact Ur Specific [place] Urine WBC (Auto) U Epithel Cells (Auto) Urine Creatinine Urine Total Protein Coronavirus (PCR)
--- NOTE | 2020-09-01 15:50 | Progress Note ---
Assessment and Plan --COVID-19 pneumonia Status post azithromycin and ceftriaxone Not a candidate for remdesivir due to impaired renal function Continue dexamethasone Incentive spirometer Prone positioning as tolerated Pulmonology following ID on board --Acute hypoxic respiratory failure Secondary to Covid pneumonia Continue oxygen supplementation-on 5 L FiO2 40% Assess for home O2 requirement --ANGEILQUE on CKD now on hemodialysis Likely ATN, started on hemodialysis Continue hemodialysis as scheduled Nephrology on board, need outpatient hemodialysis set up --Hyperkalemia, due to declining renal function, resolved --Elevated D-dimer Ultrasound lower extremity Doppler negative Unable to obtain CTA chest due to allergies Continue apixaban 5 mg twice a day --HARPER, COPD States that she uses BiPAP at home BiPAP QHS, scheduled and as needed breathing treatment with nebulizer --Diabetes mellitus cont Lantus and lispro with Accu-Chek Continue home dose Tradjenta A1c 7.6 --Hyperlipidemia Continue statins --Hypertension Continue current medication Monitor palpitations -- Oral thrush Plced on Nystatin DVT/GI prophylaxis: SCDs to BLE while in bed, PPI, Eliquis twice daily Disposition: TTF Brief history: This is a 64-year-old female with hypertension, diabetes, COPD, CVA, gout, hyperlipidemia who presented to the emergency department on 08/15 for a productive cough, wheezing, headache, subjective fevers scratchy throat ongoing for 4 weeks since 07/21/2020 s/p Z-Bipin and steroids who was COVID-19 positive prior to admissi on. Upon evaluation in the ER, had a low-grade fever, noted to be hypoxic requiring supplemental oxygen. Patient also noted to be hyperkalemic with potassium as high as 6.7, and elevated creatinine with ANGELIQUE. Patient was admitted to the hospital for further evaluation management, pulmonology, infec tious disease, nephrology were consulted. Daily course: 08/31/20: pending d/c to SNF/[facility] 08/30: Patient on 5 L 40% FiO2 today. Continue to wean off as tolerated. Discussed with classification case manager -Patient is being plan to discharge to SNF. 08/29. Remains on 15L 55% HFNC. Continue to wean as tolerated. Prone positioning PRN. 08/28. Weaned down to 15 L 55%FiO2. Using incentive spirometer. 08/27. On HFNC - 30 L 705 FiO2. She has HARPER and uses BIPAP at home. BIPAP at bedside. Complains of pain with swallowing. Ordered nystatin. 08/26. On HFNC - 30 L 705 FiO2. She has HARPER and uses BIPAP at home. Will place order for BIPAP 08/25. On high flow nasal cannula 30 L, FiO2 90%. Started empirically on Eliquis 5 mg twice daily for possible PE. She has no complaints this morning. Has some cough. Pulmonology and ID following. Remains on steroids 08/24: Patient remains on HFNC at 40L, 80% FiO2, her ddimer>[id number] and her BLE Doppler US (-) for DVT. Unable to obtain a CTA chest due to allergy to contrast. We will treat Eliquis 5 mg twice daily. Wean supplemental oxygenation as tolerated. Patient will be transferred to the floor today. 08/23: Patient complains of cough, intermittent shortness of breath, received hemodialysis today and remains on high flow nasal cannula at 40 L, 80%. No acute events reported overnight. VQ scan and bilateral lower extremity Doppler ultrasound pending 08/22: High flow nasal cannula, intermittent HD, high-dose steroids 08/21: High flow nasal cannula 08/20:-High flow nasal cannula 08/19:-High flow nasal cannula, PICC line ordered, bicarb 08/18: High flow nasal cannula, transferred to ICU 08/17: Hypoxia,-nasal cannula 3: High flow nasal cannula, Vas-Cath placement for intermittent HD, COVID-19 PCR positive Subjective Date of service: 08/31/20 Principal diagnosis: Acute respiratory failure with hypoxia, ANGELIQUE superimposed onCKD, Covid pneum Interval history: Patient seen and examined. Medical records and medication list reviewed. No acute event overnight noted by the RN. Patient remains on 5 L 40% FiO2. Patient is tolerating diet. Discussed plan of care at bedside with patient. Objective - Exam Narrative Exam: Limited physical exam due to COVID-19 pandemic to minimize transmission of the disease and to preserve PPE. Vital reviewed and stable. GENERAL: well-developed morbidly obese female lying on bed appeared to be in no discomfort. HEENT: Normocephalic. Atraumatic. NECK: Supple. CHEST/LUNGS: breathing nonlabored. HEART/CARDIOVASCULAR: Heart rate stable on telemetry ABDOMEN: Visibly not distended SKIN: There is no rash NEURO: No focal motor deficit. Follows command. MUSCULOSKELETAL: No joint effusion EXTRIMITY: No swelling, no cyanosis or clubbing. PSYCH: Cooperative. - Constitutional Vitals: Vital Signs - 12hr 09/01/20 09/01/20 09/01/20 05:42 05:44 05:45 Temperature 97.9 F Pulse Rate 102 H Respiratory 22 Rate Blood Pressure 82/48 106/48 O2 Sat by Pulse 97 Oximetry 09/01/20 09/01/20 08:52 12:20 Temperature 98.5 F Pulse Rate Respiratory 18 Rate Blood Pressure 103/60 O2 Sat by Pulse 95 Oximetry - Labs CBC & Chem 7: 08/31/20 07:09 08/31/20 07:09 Labs: Abnormal lab results 08/31/20 08/31/20 09/01/20 Range/Units 16:58 21:41 07:57 POC Glucose 279 H 237 H 127 H (70-105) mg/dL
[2020-09-01] MEDS: HYDROcodone/ACETAMINOPHEN 5-325 MG TAB PO PRN (21:44)
[2020-09-02] MEDS: BENZONATATE 100 MG CAP PO SCH ×3 (05:39→22:44)
[2020-09-02] MEDS: INSULIN LISPRO 100 UNIT/ML SUB-Q SCH ×4 (09:00→22:20)
--- NOTE | 2020-09-02 09:37 | Progress Note ---
Assessment and Plan Impression: #Acute kidney injury: She was initially on daily dialysis and was then transitioned to intermittent dialysis. #Has underlying chronic kidney disease her baseline creatinine is around 1.7-[address] Rivers's office #Respiratory failure resulting from Covid 19 pneumonia + fluid overload- being followed by pulmonary service. UF with HD as tolerated. Limit fluid intake to 1L/d #Covid 19 viral pneumonia with ARDS like picture, patient has multiorgan failure Plan: #HD MWF #she will need ongoing renal replacement therapy as tolerated for now. Monitor labs and I/O daily. # Keep MAP> 65 # Renally dose medications # Renal diet arrange outpatient hd placement, Subjective Date of service: 09/02/20 Principal diagnosis: Acute respiratory failure with hypoxia, ANGELIQUE superimposed onCKD, Covid pneum Interval history: Subjective Date of service: 08/28/20 Principal diagnosis: Acute respiratory failure with hypoxia, ANGELIQUE superimposed onCKD, Covid pneum Interval history: Patient was seen for her renal issues Nursing, interdisciplinary and consult notes were reviewed Vitals, input and output, medications and labs were reviewed Objective - Exam Narrative Exam: deferred for preservation of ppe Objective - Vital Signs Vital signs: Vital Signs - 12hr 09/02/20 09/02/20 09/02/20 00:35 04:16 04:45 Temperature 98.5 F Pulse Rate 103 H 100 H 105 H Respiratory 22 20 27 H Rate Blood Pressure 118/68 O2 Sat by Pulse 96 96 96 Oximetry 09/02/20 07:54 Temperature Pulse Rate Respiratory Rate Blood Pressure O2 Sat by Pulse 96 Oximetry - Lab 08/31/20 07:09 08/31/20 07:09 Most recent lab results Calcium 7.7 mg/dL (8.4-10.2) L 08/31/20 07:09 Phosphorus 5.90 mg/dL (2.5-4.5) H 08/17/20 09:35 Urine Creatinine 248.0 mg/dL (0.1-20.0) H 08/17/20 17:45 Urine Total Protein 196 mg/dL (5-11.8) H 08/17/20 17:45 Medications & Allergies - Medications Allergies/Adverse Reactions: Allergies gabapentin [From Neurontin] Allergy (Verified 08/15/20 17:25) Unknown rosuvastatin calcium [From Crestor] Allergy (Verified 08/15/20 17:25) Rash fluticasone propionate [From Advair Diskus] Adverse Reaction (Verified 08/15/20 17:25) Headache salmeterol xinafoate [From Advair Diskus] Adverse Reaction (Verified 08/15/20 17:25) Headache IV DYE Allergy (Uncoded 08/24/20 10:28) Itching Home Medications: Home Medications Medication Instructions Recorded Confirmed Last Taken Type Cyanocobalamin (Vitamin B-12) 1,000 mcg IJ QMONTH 08/15/20 08/15/20 Unknown History [Physicians Ez Use B-12] Ergocalciferol [Vitamin D2] 1 cap PO QWEEK 08/15/20 08/15/20 Unknown History Ezetimibe/Simvastatin 1 each PO DAILY 08/15/20 08/15/20 Unknown History [Ezetimibe-Simvastatin 10-20 mg] Famotidine [Pepcid] 40 mg PO DAILY 08/15/20 08/15/20 Unknown History Linagliptin [Tradjenta] 5 mg PO QDAY 08/15/20 08/15/20 Unknown History Omeprazole 40 mg PO DAILY 08/15/20 08/15/20 Unknown History allopurinoL [Zyloprim] 200 mg PO DAILY 08/15/20 08/15/20 Unknown History Spiriva 2.5 mcg INHALATION DAILY 08/17/20 08/17/20 Unknown History Symbicort 160-4.5 Mcg Inhaler 160 mcg INHALATION BID 08/17/20 08/17/20 Unknown History ALBUTEROL NEB's [Proventil 0.083% 2.5 mg IH Q6HRT PRN nebu 08/31/20 Unknown Rx NEBS] Apixaban [Eliquis] 5 mg PO Q12HR 7 Days 08/31/20 Unknown Rx Ascorbic Acid [Vitamin C] 1,000 mg PO BID tablet 08/31/20 Unknown Rx Benzonatate [Tessalon Perles] 100 mg PO Q8HR capsule 08/31/20 Unknown Rx Insulin Glargine [Lantus VIAL] 35 units SUB-Q BID units 08/31/20 Unknown Rx Lispro Insulin [HumaLOG] 0 unit SUB-Q ACHS units 08/31/20 Unknown Rx Nystatin [Nystatin SUSP] 400,000 unit PO TID 5 Days 08/31/20 Unknown Rx Zinc Sulfate 220 mg PO BID capsule 08/31/20 Unknown Rx calcitrioL [Rocaltrol] 0.25 mcg PO QDAY capsule 08/31/20 Unknown Rx Active Medications: Generic Name Dose Route Start Last Admin Trade Name Freq PRN Reason Stop Dose Admin Acetaminophen 650 mg 08/15/20 22:16 08/19/20 01:17 Acetaminophen 325 Mg Tab PO 650 mg Q4H PRN Administration Pain MILD(1-3)/Fever >100.5/TELLO Hydrocodone Bitart/Acetaminophen 1 each 08/15/20 22:06 09/01/20 21:44 Hydrocodone/Acetaminophen 5-325 Mg Tab PO 1 each Q6HR PRN Administration Pain, Moderate (4-6) Albuterol 2.5 mg 08/27/20 00:38 Albuterol 2.5 Mg/3 Ml Nebu IH 09/26/20 00:36 Q6HRT PRN Shortness Of Breath Apixaban 5 mg 08/24/20 11:00 09/01/20 21:36 Apixaban 5 Mg Tab PO 5 mg Q12HR SYLVAIN Administration Protocol Ascorbic Acid 1,000 mg 08/15/20 23:00 09/01/20 21:35 Ascorbic Acid 500 Mg Tab PO 1,000 mg BID SYLVAIN Administration Benzonatate 100 mg 08/25/20 14:00 09/02/20 05:39 Benzonatate 100 Mg Cap PO 100 mg Q8HR SYLVAIN Administration Calcitriol 0.25 mcg 08/18/20 10:00 09/01/20 09:30 Calcitriol 0.25 Mcg Cap PO 0.25 mcg QDAY SYLVAIN Administration Dextrose 25 ml 08/27/20 08:08 Dextrose 50% In Water (25gm) 50 Ml Syringe IV Q30MIN PRN HYPOGLYCEMIA Protocol Ezetimibe 10 mg 08/16/20 10:00 09/01/20 09:31 Ezetimibe 10 Mg Tab PO 10 mg DAILY SYLVAIN Administration Hydromorphone HCl 0.5 mg 08/15/20 22:16 Hydromorphone 1 Mg/1 Ml Inj IV Q3H PRN Pain , Severe (7-10) Sodium Chloride 100 mls @ 999 mls/hr 08/24/20 08:20 Nacl 0.9% IV SARAI PRN Hypotension Insulin Glargine 35 units 08/26/20 08:30 09/01/20 22:00 Insulin Glargine 100 Units/Ml SUB-Q 35 units BID SYLVAIN Administration Insulin Human Lispro 0 unit 08/18/20 13:23 09/01/20 22:00 Insulin Lispro 100 Unit/Ml SUB-Q Not Given ACHS [facility] Protocol Linagliptin 5 mg 08/16/20 10:00 09/01/20 09:30 Linagliptin 5 Mg Tab PO 5 mg QDAY SYLVAIN Administration Metoclopramide HCl 5 mg 08/15/20 22:37 Metoclopramide 10 Mg/2 Ml Inj IV Q6H PRN Nausea And Vomiting Multivit/Ca Carb/B Cmplx/FA/Prenat 1 cap 08/18/20 10:00 09/01/20 09:30 Folic Acid/Vit B Comp W-C 1 Mg (Renal Caps) PO 1 cap DAILY SYLVAIN Administration Nystatin 400,000 unit 08/26/20 18:24 09/01/20 21:35 Nystatin 500,000 Unit/5 Ml Oral Liqd PO 400,000 unit TID SYLVAIN Administration Ondansetron HCl 4 mg 08/15/20 22:16 Ondansetron 4 Mg/2 Ml Inj IV Q8H PRN Nausea And Vomiting Oxycodone/Acetaminophen 1 tab 08/15/20 22:16 08/18/20 09:58 Oxycodone /Acetaminophen 5-325mg Tab PO 1 tab Q6H PRN Administration Pain, Moderate (4-6) Pantoprazole Sodium 40 mg 08/16/20 10:00 09/01/20 09:31 Pantoprazole 40 Mg Tab PO 40 mg DAILY SYLVAIN Administration Pravastatin Sodium 40 mg 08/16/20 10:00 09/01/20 09:30 Pravastatin 40 Mg Tab PO 40 mg DAILY SYLVAIN Administration Pseudoephedrine/Acetam/Chlorphenir 10 ml 08/18/20 10:30 08/23/20 17:21 Guaifenesin/Codeine 100-10mg Oral Liqd 5 Ml PO 10 ml Q4H PRN Administration Cough Sodium Chloride 10 ml 08/15/20 23:00 09/01/20 21:38 Sodium Chloride 0.9% 10 Ml Flush Syringe IV 10 ml BID SYLVAIN Administration Sodium Chloride 10 ml 08/15/20 22:16 Sodium Chloride 0.9% 10 Ml Flush Syringe IV PRN PRN LINE FLUSH Zinc Sulfate 220 mg 08/15/20 23:00 09/01/20 21:36 Zinc Sulfate 220 Mg Cap PO 220 mg BID SYLVAIN Administration
--- NOTE | 2020-09-02 10:04 | Progress Note ---
Assessment and Plan 64 y/o female with acute respiratory failure thought secondary to COVID, found to be positive 09/02/20: No objection to discharge. Follow up with Markus 09/01/20: Suggest walk test and arrangement of home O2 if needed. Has finished steroid therapy. Resume home COPD regimen. No objection to discharge pulmonary [facility]. Follow up with Markus 14 days post discharge. Will see as needed. 08/31/20: Continue to wean FiO2 as tolerated. HD per renal. There is a discharge order in computer for today. If discharged, patient can follow up with Dr. Aparicio in 14 days from discharge. 08/30/20: Continue to wean FiO2 as tolerated. Hd per renal. Will continue to follow up. 08/28/20: Continue to wean FiO2 as tolerated. HD per renal. Proning if able. Prognosis remains guarded but promising given reduction in oxygen 08/27/20: Continue to wean FiO2 as tolerated. HD per renal. Prone as tolerated. Guarded prognosis. 08/25/20: Empirically started on anticoags, monitor renal function and coags and hgb. LAst day of steroids, however may need to extend out if oxygen requirement doesn't improve with continued HD and volume removal. Encourage to prone or some variation of this. Guarded prognosis. 08/24/20: Markers remain elevated. IMS concerned about clot. dopplers negative so they have cleared with renal for CTA. Oxygenation not worse and I am not sure how aggressive weaning has been. Will attempt to do better today. HD per renal. Continue high dose steroids. Guarded prognosis. 08/23/20: Agree with HD again today. Wean FiO2 for sats >88% and patient comfort. Continue steroids at current dosing. Lantus for sugars. Will observe on HD again today. If anything, and a bed is needed, can transfer to step down. 08/22/20: HD per renal. Patient has questions about why she is requiring HD, please address with her if possible. Hopeful she will have several HD sessions back to back as I feel a lot of her most recent decline is from volume. COntinue High dose steroids but will extend out to 10 days. Increase lantus to help with sugars. Can likely be transferred to step down or back to the floor. 08/19/20: Ordered PICC line for use during HD if patient requires vasopressors. Most likely increase in oxygen secondary to volume from lack of appropriate HD secondary to hypotension. Will give a couple amps of bicarb to see if this will help with blood pressure and can wills off pressor use. Continue steroids. Agree with ID on increasing the dose. Guarded prognosis 08/18/20: Prone as tolerated during day and sleep prone at night. Continue supplemental O2. Steroids for 10 days. Hold on nebs. Needs RT consult for documentation of oxygen therapy and requirements. 08/17/20: Found to be positive. Same recs as yesterday. Likely not a candidate for remdesivir given renal function. No nebulizer therapy, only inhaler therapy if and when needed. Continue supplemental O2 and proning is mcknight. Guarded prognosis given renal failure. 1. Follow up covid testing 2. Ok with current steroids 3. If patient brought in home inhalers, please allow pharmacy to verify and use them, no neb treatments 4. Prone during the day and and sleep prone at night as tolerated. Guarded prognosis. Subjective Date of service: 09/02/20 Principal diagnosis: Acute respiratory failure with hypoxia, ANGELIQUE superimposed onCKD, Covid pneum Interval history: No acute events. Awaiting authorization for placement. Pulm status stable. Objective Vital Signs - 12hr 09/02/20 09/02/20 09/02/20 00:35 04:16 04:45 Temperature 98.5 F Pulse Rate 103 H 100 H 105 H Respiratory 22 20 27 H Rate Blood Pressure 118/68 O2 Sat by Pulse 96 96 96 Oximetry 09/02/20 07:54 Temperature Pulse Rate Respiratory Rate Blood Pressure O2 Sat by Pulse 96 Oximetry Constitutional: alert, other (obese, critically ill on ventilator) Eyes: non-icteric ENT: oropharynx moist Neck: supple Effort: normal Ascultation: Bilateral: diminished breath sounds Cardiovascular: regular rate and rhythm (no mrg) Gastrointestinal: normoactive bowel sounds, soft, non-tender, non-distended Integumentary: normal Extremities: no cyanosis, no edema Neurologic: normal mental status, non-focal exam Psychiatric: mood appropriate, affect normal CBC and BMP: 08/31/20 07:09 08/31/20 07:09 ABG, PT/INR, D-dimer: PT/INR, D-dimer D-Dimer > 70467 ng/mlDDU (0-234) H 08/23/20 14:07 Abnormal lab findings: Abnormal Labs 08/15/20 08/15/20 08/15/20 17:01 17:01 17:01 WBC RBC Hgb Hct MCH RDW 15.8 H Lymph % (Auto) 7.4 L Lymph # (Auto) 0.7 L [place] # (Auto) Seg Neutrophils % 85.1 H Seg Neuts % (Manual) Lymphocytes % (Manual) Seg Neutrophils # 7.9 H Lymphocytes # (Manual) D-Dimer 1750.12 H Sodium Potassium 5.1 H Chloride 97.1 L Carbon Dioxide BUN 67 H Creatinine 4.8 H Glucose 101 H POC Glucose Hemoglobin A1c Calcium Phosphorus Ferritin AST 53 H Lactate Dehydrogenase C-Reactive Protein Total Protein Albumin 3.4 L PTH Intact Ur Specific [place] Urine WBC (Auto) U Epithel Cells (Auto) Urine Creatinine Urine Total Protein Coronavirus (PCR) 08/15/20 08/15/20 08/15/20 17:01 17:01 17:01 WBC RBC Hgb Hct MCH RDW Lymph % (Auto) Lymph # (Auto) [place] # (Auto) Seg Neutrophils % Seg Neuts % (Manual) Lymphocytes % (Manual) Seg Neutrophils # Lymphocytes # (Manual) D-Dimer Sodium Potassium Chloride Carbon Dioxide BUN Creatinine Glucose 101 H POC Glucose Hemoglobin A1c Calcium Phosphorus Ferritin 667.2 H AST Lactate Dehydrogenase 606 H 567 H C-Reactive Protein 4.60 H 6.30 H Total Protein Albumin PTH Intact Ur Specific [place] Urine WBC (Auto) U Epithel Cells (Auto) Urine Creatinine Urine Total Protein Coronavirus (PCR) 08/16/20 08/16/20 08/16/20 04:32 04:32 04:32 WBC RBC Hgb Hct MCH 27 L RDW 15.9 H Lymph % (Auto) 12.6 L Lymph # (Auto) 0.8 L [place] # (Auto) Seg Neutrophils % 83.7 H Seg Neuts % (Manual) Lymphocytes % (Manual) Seg Neutrophils # Lymphocytes # (Manual) D-Dimer Sodium 136 L Potassium 6.7 H* D Chloride Carbon Dioxide BUN 78 H Creatinine 6.2 H Glucose 223 H POC Glucose Hemoglobin A1c 7.6 H Calcium 7.8 L Phosphorus Ferritin AST 47 H Lactate Dehydrogenase C-Reactive Protein Total Protein 5.8 L D Albumin 3.1 L PTH Intact Ur Specific [place] Urine WBC (Auto) U Epithel Cells (Auto) Urine Creatinine Urine Total Protein Coronavirus (PCR) 03/02/21 03/02/21 03/02/21 17:01 17:05 21:41 WBC RBC Hgb Hct MCH RDW Lymph % (Auto) Lymph # (Auto) [place] # (Auto) Seg Neutrophils % Seg Neuts % (Manual) Lymphocytes % (Manual) Seg Neutrophils # Lymphocytes # (Manual) D-Dimer Sodium Potassium Chloride Carbon Dioxide BUN 93 H Creatinine 7.7 H Glucose 228 H POC Glucose 150 H 204 H Hemoglobin A1c Calcium Phosphorus Ferritin AST Lactate Dehydrogenase C-Reactive Protein Total Protein Albumin PTH Intact Ur Specific [place] Urine WBC (Auto) U Epithel Cells (Auto) Urine Creatinine Urine Total Protein Coronavirus (PCR) 08/16/20 08/17/20 08/17/20 Unknown 07:31 07:31 WBC RBC Hgb Hct MCH 27 L RDW 16.0 H Lymph % (Auto) 4.2 L Lymph # (Auto) 0.4 L [place] # (Auto) Seg Neutrophils % 90.0 H Seg Neuts % (Manual) Lymphocytes % (Manual) Seg Neutrophils # 8.8 H Lymphocytes # (Manual) D-Dimer Sodium Potassium 5.8 H D Chloride Carbon Dioxide 20 L BUN 103 H Creatinine 9.0 H Glucose 219 H POC Glucose Hemoglobin A1c Calcium 7.9 L Phosphorus Ferritin AST Lactate Dehydrogenase C-Reactive Protein Total Protein Albumin PTH Intact Ur Specific [place] Urine WBC (Auto) U Epithel Cells (Auto) Urine Creatinine Urine Total Protein Coronavirus (PCR) Positive A 08/17/20 08/17/20 08/17/20 07:44 09:35 09:35 WBC RBC Hgb Hct MCH RDW Lymph % (Auto) Lymph # (Auto) [place] # (Auto) Seg Neutrophils % Seg Neuts % (Manual) Lymphocytes % (Manual) Seg Neutrophils # Lymphocytes # (Manual) D-Dimer Sodium Potassium Chloride Carbon Dioxide BUN Creatinine Glucose POC Glucose 188 H Hemoglobin A1c Calcium Phosphorus 5.90 H Ferritin AST Lactate Dehydrogenase C-Reactive Protein Total Protein Albumin PTH Intact 452.6 H Ur Specific [place] Urine WBC (Auto) U Epithel Cells (Auto) Urine Creatinine Urine Total Protein Coronavirus (PCR) 08/17/20 08/17/20 08/17/20 11:23 16:38 17:45 WBC RBC Hgb Hct MCH RDW Lymph % (Auto) Lymph # (Auto) [place] # (Auto) Seg Neutrophils % Seg Neuts % (Manual) Lymphocytes % (Manual) Seg Neutrophils # Lymphocytes # (Manual) D-Dimer Sodium Potassium Chloride Carbon Dioxide BUN Creatinine Glucose POC Glucose 205 H 212 H Hemoglobin A1c Calcium Phosphorus Ferritin AST Lactate Dehydrogenase C-Reactive Protein Total Protein Albumin PTH Intact Ur Specific [place] 1.039 H Urine WBC (Auto) 32.0 H U Epithel Cells (Auto) 44.0 H Urine Creatinine Urine Total Protein Coronavirus (PCR) 08/17/20 08/17/20 08/18/20 17:45 21:39 08:00 WBC RBC Hgb Hct MCH RDW Lymph % (Auto) Lymph # (Auto) [place] # (Auto) Seg Neutrophils % Seg Neuts % (Manual) Lymphocytes % (Manual) Seg Neutrophils # Lymphocytes # (Manual) D-Dimer Sodium Potassium Chloride Carbon Dioxide BUN Creatinine Glucose POC Glucose 206 H 229 H Hemoglobin A1c Calcium Phosphorus Ferritin AST Lactate Dehydrogenase C-Reactive Protein Total Protein Albumin PTH Intact Ur Specific [place] Urine WBC (Auto) U Epithel Cells (Auto) Urine Creatinine 248.0 H Urine Total Protein 196 H Coronavirus (PCR) 08/18/20 08/18/20 08/18/20 08:36 08:36 11:00 WBC RBC 3.64 L Hgb 10.0 L Hct MCH RDW 15.8 H Lymph % (Auto) 5.9 L Lymph # (Auto) 0.5 L [place] # (Auto) Seg Neutrophils % 87.3 H Seg Neuts % (Manual) Lymphocytes % (Manual) Seg Neutrophils # Lymphocytes # (Manual) D-Dimer Sodium 135 L D Potassium Chloride 95.8 L Carbon Dioxide 20 L BUN 84 H Creatinine 8.4 H Glucose 262 H POC Glucose 238 H Hemoglobin A1c Calcium 7.5 L Phosphorus Ferritin AST Lactate Dehydrogenase C-Reactive Protein Total Protein 6.1 L Albumin 2.5 L PTH Intact Ur Specific [place] Urine WBC (Auto) U Epithel Cells (Auto) Urine Creatinine Urine Total Protein Coronavirus (PCR) 08/18/20 08/18/20 08/19/20 16:14 21:52 04:23 WBC RBC 3.53 L Hgb 9.5 L Hct 30.0 L MCH 27 L RDW 15.6 H Lymph % (Auto) Lymph # (Auto) [place] # (Auto) Seg Neutrophils % Seg Neuts % (Manual) 84.0 H Lymphocytes % (Manual) 9.0 L Seg Neutrophils # Lymphocytes # (Manual) 0.5 L D-Dimer Sodium Potassium Chloride Carbon Dioxide BUN Creatinine Glucose POC Glucose 248 H 303 H Hemoglobin A1c Calcium Phosphorus Ferritin AST Lactate Dehydrogenase C-Reactive Protein Total Protein Albumin PTH Intact Ur Specific [place] Urine WBC (Auto) U Epithel Cells (Auto) Urine Creatinine Urine Total Protein Coronavirus (PCR) 08/19/20 08/19/20 08/19/20 04:23 06:44 11:53 WBC RBC Hgb Hct MCH RDW Lymph % (Auto) Lymph # (Auto) [place] # (Auto) Seg Neutrophils % Seg Neuts % (Manual) Lymphocytes % (Manual) Seg Neutrophils # Lymphocytes # (Manual) D-Dimer Sodium Potassium Chloride 97.2 L Carbon Dioxide BUN 86 H Creatinine 9.2 H Glucose 271 H POC Glucose 213 H 266 H Hemoglobin A1c Calcium 7.5 L Phosphorus Ferritin AST Lactate Dehydrogenase C-Reactive Protein Total Protein 5.8 L Albumin 2.5 L PTH Intact Ur Specific [place] Urine WBC (Auto) U Epithel Cells (Auto) Urine Creatinine Urine Total Protein Coronavirus (PCR) 08/19/20 08/19/20 08/19/20 16:58 16:58 16:58 WBC RBC Hgb Hct MCH RDW Lymph % (Auto) Lymph # (Auto) [place] # (Auto) Seg Neutrophils % Seg Neuts % (Manual) Lymphocytes % (Manual) Seg Neutrophils # Lymphocytes # (Manual) D-Dimer > 69766 H Sodium Potassium Chloride Carbon Dioxide BUN Creatinine Glucose POC Glucose Hemoglobin A1c Calcium Phosphorus Ferritin 1043.0 H AST Lactate Dehydrogenase 721 H C-Reactive Protein 3.00 H Total Protein Albumin PTH Intact Ur Specific [place] Urine WBC (Auto) U Epithel Cells (Auto) Urine Creatinine Urine Total Protein Coronavirus (PCR) 08/19/20 08/19/20 08/20/20 17:18 22:53 06:38 WBC RBC Hgb Hct MCH RDW Lymph % (Auto) Lymph # (Auto) [place] # (Auto) Seg Neutrophils % Seg Neuts % (Manual) Lymphocytes % (Manual) Seg Neutrophils # Lymphocytes # (Manual) D-Dimer Sodium Potassium Chloride Carbon Dioxide BUN Creatinine Glucose POC Glucose 223 H 273 H 268 H Hemoglobin A1c Calcium Phosphorus Ferritin AST Lactate Dehydrogenase C-Reactive Protein Total Protein Albumin PTH Intact Ur Specific [place] Urine WBC (Auto) U Epithel Cells (Auto) Urine Creatinine Urine Total Protein Coronavirus (PCR) 08/20/20 08/20/20 08/20/20 08:21 11:47 15:46 WBC RBC Hgb Hct MCH RDW Lymph % (Auto) Lymph # (Auto) [place] # (Auto) Seg Neutrophils % Seg Neuts % (Manual) Lymphocytes % (Manual) Seg Neutrophils # Lymphocytes # (Manual) D-Dimer Sodium Potassium Chloride Carbon Dioxide BUN Creatinine Glucose POC Glucose 264 H 288 H 262 H Hemoglobin A1c Calcium Phosphorus Ferritin AST Lactate Dehydrogenase C-Reactive Protein Total Protein Albumin PTH Intact Ur Specific [place] Urine WBC (Auto) U Epithel Cells (Auto) Urine Creatinine Urine Total Protein Coronavirus (PCR) 08/20/20 08/21/20 08/21/20 21:33 07:46 11:56 WBC RBC Hgb Hct MCH RDW Lymph % (Auto) Lymph # (Auto) [place] # (Auto) Seg Neutrophils % Seg Neuts % (Manual) Lymphocytes % (Manual) Seg Neutrophils # Lymphocytes # (Manual) D-Dimer Sodium Potassium Chloride Carbon Dioxide BUN Creatinine Glucose POC Glucose 274 H 249 H 227 H Hemoglobin A1c Calcium Phosphorus Ferritin AST Lactate Dehydrogenase C-Reactive Protein Total Protein Albumin PTH Intact Ur Specific [place] Urine WBC (Auto) U Epithel Cells (Auto) Urine Creatinine Urine Total Protein Coronavirus (PCR) 08/21/20 08/21/20 08/22/20 17:19 21:34 08:48 WBC RBC Hgb Hct MCH RDW Lymph % (Auto) Lymph # (Auto) [place] # (Auto) Seg Neutrophils % Seg Neuts % (Manual) Lymphocytes % (Manual) Seg Neutrophils # Lymphocytes # (Manual) D-Dimer Sodium Potassium Chloride Carbon Dioxide BUN Creatinine Glucose POC Glucose 318 H 286 H 257 H Hemoglobin A1c Calcium Phosphorus Ferritin AST Lactate Dehydrogenase C-Reactive Protein Total Protein Albumin PTH Intact Ur Specific [place] Urine WBC (Auto) U Epithel Cells (Auto) Urine Creatinine Urine Total Protein Coronavirus (PCR) 08/22/20 08/22/20 08/22/20 12:34 17:41 21:22 WBC RBC Hgb Hct MCH RDW Lymph % (Auto) Lymph # (Auto) [place] # (Auto) Seg Neutrophils % Seg Neuts % (Manual) Lymphocytes % (Manual) Seg Neutrophils # Lymphocytes # (Manual) D-Dimer Sodium Potassium Chloride Carbon Dioxide BUN Creatinine Glucose POC Glucose 324 H 283 H 308 H Hemoglobin A1c Calcium Phosphorus Ferritin AST Lactate Dehydrogenase C-Reactive Protein Total Protein Albumin PTH Intact Ur Specific [place] Urine WBC (Auto) U Epithel Cells (Auto) Urine Creatinine Urine Total Protein Coronavirus (PCR) 08/23/20 08/23/20 08/23/20 05:24 05:47 05:47 WBC 13.7 H RBC Hgb 9.9 L Hct MCH 27 L RDW Lymph % (Auto) Lymph # (Auto) [place] # (Auto) Seg Neutrophils % Seg Neuts % (Manual) Lymphocytes % (Manual) Seg Neutrophils # Lymphocytes # (Manual) D-Dimer Sodium 133 L Potassium Chloride 90.4 L Carbon Dioxide BUN 103 H Creatinine 9.5 H Glucose 346 H POC Glucose 297 H Hemoglobin A1c Calcium 7.9 L Phosphorus Ferritin AST Lactate Dehydrogenase C-Reactive Protein Total Protein Albumin PTH Intact Ur Specific [place] Urine WBC (Auto) U Epithel Cells (Auto) Urine Creatinine Urine Total Protein Coronavirus (PCR) 08/23/20 08/23/20 08/23/20 07:34 10:58 14:07 WBC RBC Hgb Hct MCH RDW Lymph % (Auto) Lymph # (Auto) [place] # (Auto) Seg Neutrophils % Seg Neuts % (Manual) Lymphocytes % (Manual) Seg Neutrophils # Lymphocytes # (Manual) D-Dimer > 31504 H Sodium Potassium Chloride Carbon Dioxide BUN Creatinine Glucose POC Glucose 276 H 334 H Hemoglobin A1c Calcium Phosphorus Ferritin AST Lactate Dehydrogenase C-Reactive Protein Total Protein Albumin PTH Intact Ur Specific [place] Urine WBC (Auto) U Epithel Cells (Auto) Urine Creatinine Urine Total Protein Coronavirus (PCR) 08/23/20 08/23/20 08/23/20 14:07 14:07 15:54 WBC RBC Hgb Hct MCH RDW Lymph % (Auto) Lymph # (Auto) [place] # (Auto) Seg Neutrophils % Seg Neuts % (Manual) Lymphocytes % (Manual) Seg Neutrophils # Lymphocytes # (Manual) D-Dimer Sodium Potassium Chloride Carbon Dioxide BUN Creatinine Glucose POC Glucose 248 H Hemoglobin A1c Calcium Phosphorus Ferritin 1053.0 H AST Lactate Dehydrogenase 994 H C-Reactive Protein Total Protein Albumin PTH Intact Ur Specific [place] Urine WBC (Auto) U Epithel Cells (Auto) Urine Creatinine Urine Total Protein Coronavirus (PCR) 08/23/20 08/24/20 08/24/20 21:18 06:06 06:06 WBC 17.9 H RBC Hgb 10.0 L Hct MCH 26 L RDW Lymph % (Auto) Lymph # (Auto) [place] # (Auto) Seg Neutrophils % Seg Neuts % (Manual) Lymphocytes % (Manual) Seg Neutrophils # Lymphocytes # (Manual) D-Dimer Sodium Potassium 5.2 H Chloride 94.8 L Carbon Dioxide BUN 79 H Creatinine 7.9 H Glucose 230 H POC Glucose 206 H Hemoglobin A1c Calcium 8.3 L Phosphorus Ferritin AST Lactate Dehydrogenase C-Reactive Protein Total Protein Albumin PTH Intact Ur Specific [place] Urine WBC (Auto) U Epithel Cells (Auto) Urine Creatinine Urine Total Protein Coronavirus (PCR) 08/24/20 08/24/20 08/24/20 07:44 11:31 15:51 WBC RBC Hgb Hct MCH RDW Lymph % (Auto) Lymph # (Auto) [place] # (Auto) Seg Neutrophils % Seg Neuts % (Manual) Lymphocytes % (Manual) Seg Neutrophils # Lymphocytes # (Manual) D-Dimer Sodium Potassium Chloride Carbon Dioxide BUN Creatinine Glucose POC Glucose 199 H 307 H 325 H Hemoglobin A1c Calcium Phosphorus Ferritin AST Lactate Dehydrogenase C-Reactive Protein Total Protein Albumin PTH Intact Ur Specific [place] Urine WBC (Auto) U Epithel Cells (Auto) Urine Creatinine Urine Total Protein Coronavirus (PCR) 08/24/20 08/25/20 08/25/20 21:43 08:08 08:14 WBC RBC Hgb Hct MCH RDW Lymph % (Auto) Lymph # (Auto) [place] # (Auto) Seg Neutrophils % Seg Neuts % (Manual) Lymphocytes % (Manual) Seg Neutrophils # Lymphocytes # (Manual) D-Dimer Sodium Potassium Chloride Carbon Dioxide BUN 65 H Creatinine 6.6 H Glucose 278 H POC Glucose 227 H 253 H Hemoglobin A1c Calcium Phosphorus Ferritin AST Lactate Dehydrogenase C-Reactive Protein Total Protein Albumin PTH Intact Ur Specific [place] Urine WBC (Auto) U Epithel Cells (Auto) Urine Creatinine Urine Total Protein Coronavirus (PCR) 08/25/20 08/25/20 08/25/20 08:14 10:53 16:18 WBC 19.0 H RBC Hgb Hct MCH 27 L RDW 15.8 H Lymph % (Auto) Lymph # (Auto) [place] # (Auto) Seg Neutrophils % Seg Neuts % (Manual) Lymphocytes % (Manual) Seg Neutrophils # Lymphocytes # (Manual) D-Dimer Sodium Potassium Chloride Carbon Dioxide BUN Creatinine Glucose POC Glucose 332 H 329 H Hemoglobin A1c Calcium Phosphorus Ferritin AST Lactate Dehydrogenase C-Reactive Protein Total Protein Albumin PTH Intact Ur Specific [place] Urine WBC (Auto) U Epithel Cells (Auto) Urine Creatinine Urine Total Protein Coronavirus (PCR) 08/25/20 08/26/2008/26/21 21:52 01:10 08:21 WBC RBC Hgb Hct MCH RDW Lymph % (Auto) Lymph # (Auto) [place] # (Auto) Seg Neutrophils % Seg Neuts % (Manual) Lymphocytes % (Manual) Seg Neutrophils # Lymphocytes # (Manual) D-Dimer Sodium Potassium Chloride Carbon Dioxide BUN Creatinine Glucose POC Glucose 311 H 426 H 182 H Hemoglobin A1c Calcium Phosphorus Ferritin AST Lactate Dehydrogenase C-Reactive Protein Total Protein Albumin PTH Intact Ur Specific [place] Urine WBC (Auto) U Epithel Cells (Auto) Urine Creatinine Urine Total Protein Coronavirus (PCR) 08/26/20 08/26/20 08/26/20 10:38 11:05 16:36 WBC RBC Hgb Hct MCH RDW Lymph % (Auto) Lymph # (Auto) [place] # (Auto) Seg Neutrophils % Seg Neuts % (Manual) Lymphocytes % (Manual) Seg Neutrophils # Lymphocytes # (Manual) D-Dimer Sodium Potassium Chloride 95.5 L Carbon Dioxide BUN 95 H Creatinine 8.9 H Glucose 216 H POC Glucose 191 H 173 H Hemoglobin A1c Calcium Phosphorus Ferritin AST Lactate Dehydrogenase C-Reactive Protein Total Protein Albumin PTH Intact Ur Specific [place] Urine WBC (Auto) U Epithel Cells (Auto) Urine Creatinine Urine Total Protein Coronavirus (PCR) 08/26/20 08/27/20 08/27/20 22:22 06:13 07:36 WBC RBC Hgb Hct MCH RDW Lymph % (Auto) Lymph # (Auto) [place] # (Auto) Seg Neutrophils % Seg Neuts % (Manual) Lymphocytes % (Manual) Seg Neutrophils # Lymphocytes # (Manual) D-Dimer Sodium Potassium Chloride Carbon Dioxide BUN 61 H Creatinine 6.9 H Glucose 52 L POC Glucose 160 H 38 L Hemoglobin A1c Calcium Phosphorus Ferritin AST Lactate Dehydrogenase C-Reactive Protein Total Protein Albumin PTH Intact Ur Specific [place] Urine WBC (Auto) U Epithel Cells (Auto) Urine Creatinine Urine Total Protein Coronavirus (PCR) 08/27/20 08/27/20 08/27/20 08:19 10:56 16:07 WBC RBC Hgb Hct MCH RDW Lymph % (Auto) Lymph # (Auto) [place] # (Auto) Seg Neutrophils % Seg Neuts % (Manual) Lymphocytes % (Manual) Seg Neutrophils # Lymphocytes # (Manual) D-Dimer Sodium Potassium Chloride Carbon Dioxide BUN Creatinine Glucose POC Glucose 61 L 147 H 230 H Hemoglobin A1c Calcium Phosphorus Ferritin AST Lactate Dehydrogenase C-Reactive Protein Total Protein Albumin PTH Intact Ur Specific [place] Urine WBC (Auto) U Epithel Cells (Auto) Urine Creatinine Urine Total Protein Coronavirus (PCR) 08/27/20 08/28/20 08/28/20 21:31 07:23 07:28 WBC RBC Hgb Hct MCH RDW Lymph % (Auto) Lymph # (Auto) [place] # (Auto) Seg Neutrophils % Seg Neuts % (Manual) Lymphocytes % (Manual) Seg Neutrophils # Lymphocytes # (Manual) D-Dimer Sodium 136 L Potassium Chloride 96.4 L Carbon Dioxide BUN 47 H Creatinine 5.8 H Glucose 314 H POC Glucose 314 H 292 H Hemoglobin A1c Calcium 7.8 L Phosphorus Ferritin AST Lactate Dehydrogenase C-Reactive Protein Total Protein Albumin PTH Intact Ur Specific [place] Urine WBC (Auto) U Epithel Cells (Auto) Urine Creatinine Urine Total Protein Coronavirus (PCR) 08/28/20 08/28/20 08/28/20 11:10 16:28 21:44 WBC RBC Hgb Hct MCH RDW Lymph % (Auto) Lymph # (Auto) [place] # (Auto) Seg Neutrophils % Seg Neuts % (Manual) Lymphocytes % (Manual) Seg Neutrophils # Lymphocytes # (Manual) D-Dimer Sodium Potassium Chloride Carbon Dioxide BUN Creatinine Glucose POC Glucose 287 H 268 H 282 H Hemoglobin A1c Calcium Phosphorus Ferritin AST Lactate Dehydrogenase C-Reactive Protein Total Protein Albumin PTH Intact Ur Specific [place] Urine WBC (Auto) U Epithel Cells (Auto) Urine Creatinine Urine Total Protein Coronavirus (PCR) 08/29/20 08/29/20 08/29/20 06:42 08:18 11:14 WBC RBC Hgb Hct MCH RDW Lymph % (Auto) Lymph # (Auto) [place] # (Auto) Seg Neutrophils % Seg Neuts % (Manual) Lymphocytes % (Manual) Seg Neutrophils # Lymphocytes # (Manual) D-Dimer Sodium 135 L Potassium Chloride 95.9 L Carbon Dioxide BUN 72 H Creatinine 8.0 H Glucose 236 H POC Glucose 172 H 206 H Hemoglobin A1c Calcium 7.9 L Phosphorus Ferritin AST Lactate Dehydrogenase C-Reactive Protein Total Protein Albumin PTH Intact Ur Specific [place] Urine WBC (Auto) U Epithel Cells (Auto) Urine Creatinine Urine Total Protein Coronavirus (PCR) 08/29/20 08/30/20 08/30/20 16:23 00:02 07:36 WBC RBC Hgb Hct MCH RDW Lymph % (Auto) Lymph # (Auto) [place] # (Auto) Seg Neutrophils % Seg Neuts % (Manual) Lymphocytes % (Manual) Seg Neutrophils # Lymphocytes # (Manual) D-Dimer Sodium Potassium Chloride Carbon Dioxide BUN Creatinine Glucose POC Glucose 242 H 220 H 149 H Hemoglobin A1c Calcium Phosphorus Ferritin AST Lactate Dehydrogenase C-Reactive Protein Total Protein Albumin PTH Intact Ur Specific [place] Urine WBC (Auto) U Epithel Cells (Auto) Urine Creatinine Urine Total Protein Coronavirus (PCR) 08/30/20 08/30/20 08/30/20 10:54 15:18 21:47 WBC RBC Hgb Hct MCH RDW Lymph % (Auto) Lymph # (Auto) [place] # (Auto) Seg Neutrophils % Seg Neuts % (Manual) Lymphocytes % (Manual) Seg Neutrophils # Lymphocytes # (Manual) D-Dimer Sodium Potassium Chloride Carbon Dioxide BUN Creatinine Glucose POC Glucose 170 H 216 H 331 H Hemoglobin A1c Calcium Phosphorus Ferritin AST Lactate Dehydrogenase C-Reactive Protein Total Protein Albumin PTH Intact Ur Specific [place] Urine WBC (Auto) U Epithel Cells (Auto) Urine Creatinine Urine Total Protein Coronavirus (PCR) 08/31/20 08/31/20 08/31/20 07:09 07:09 11:45 WBC 14.7 H RBC 3.31 L Hgb 9.0 L Hct 28.2 L MCH 27 L RDW 15.9 H Lymph % (Auto) 5.4 L Lymph # (Auto) 0.8 L [place] # (Auto) 0.9 H Seg Neutrophils % 87.3 H Seg Neuts % (Manual) Lymphocytes % (Manual) Seg Neutrophils # 12.8 H Lymphocytes # (Manual) D-Dimer Sodium Potassium Chloride 95.3 L Carbon Dioxide BUN 71 H Creatinine 8.2 H Glucose 123 H POC Glucose 154 H Hemoglobin A1c Calcium 7.7 L Phosphorus Ferritin AST Lactate Dehydrogenase C-Reactive Protein Total Protein Albumin PTH Intact Ur Specific [place] Urine WBC (Auto) U Epithel Cells (Auto) Urine Creatinine Urine Total Protein Coronavirus (PCR) 08/31/20 08/31/20 09/01/20 16:58 21:41 07:57 WBC RBC Hgb Hct MCH RDW Lymph % (Auto) Lymph # (Auto) [place] # (Auto) Seg Neutrophils % Seg Neuts % (Manual) Lymphocytes % (Manual) Seg Neutrophils # Lymphocytes # (Manual) D-Dimer Sodium Potassium Chloride Carbon Dioxide BUN Creatinine Glucose POC Glucose 279 H 237 H 127 H Hemoglobin A1c Calcium Phosphorus Ferritin AST Lactate Dehydrogenase C-Reactive Protein Total Protein Albumin PTH Intact Ur Specific [place] Urine WBC (Auto) U Epithel Cells (Auto) Urine Creatinine Urine Total Protein Coronavirus (PCR) 09/01/20 09/01/20 09/01/20 11:14 16:00 21:16 WBC RBC Hgb Hct MCH RDW Lymph % (Auto) Lymph # (Auto) [place] # (Auto) Seg Neutrophils % Seg Neuts % (Manual) Lymphocytes % (Manual) Seg Neutrophils # Lymphocytes # (Manual) D-Dimer Sodium Potassium Chloride Carbon Dioxide BUN Creatinine Glucose POC Glucose 166 H 108 H 148 H Hemoglobin A1c Calcium Phosphorus Ferritin AST Lactate Dehydrogenase C-Reactive Protein Total Protein Albumin PTH Intact Ur Specific [place] Urine WBC (Auto) U Epithel Cells (Auto) Urine Creatinine Urine Total Protein Coronavirus (PCR)
[2020-09-02] MEDS: INSULIN GLARGINE 100 UNITS/ML SUB-Q SCH ×2 (10:12→22:44)
[2020-09-02] MEDS: FOLIC ACID/VIT B COMP W-C 1 MG (RENAL CAPS) PO SCH (11:01)
[2020-09-02] MEDS: PANTOPRAZOLE 40 MG TAB PO SCH (11:01)
[2020-09-02] MEDS: ASCORBIC ACID 500 MG TAB PO SCH ×2 (11:01→22:44)
[2020-09-02] MEDS: PRAVASTATIN 40 MG TAB PO SCH (11:01)
[2020-09-02] MEDS: CALCITRIOL 0.25 MCG CAP PO SCH (11:02)
[2020-09-02] MEDS: ZINC SULFATE 220 MG CAP PO SCH ×2 (11:02→22:44)
[2020-09-02] MEDS: APIXABAN 5 MG TAB PO SCH ×2 (11:02→22:44)
[2020-09-02] MEDS: EZETIMIBE 10 MG TAB PO SCH (11:02)
[2020-09-02] MEDS: LINAGLIPTIN 5 MG TAB PO SCH (11:02)
[2020-09-02] MEDS: NYSTATIN 500,000 UNIT/5 ML ORAL LIQD PO SCH (11:12)
--- NOTE | 2020-09-02 13:22 | Progress Note ---
Assessment and Plan Cultures: SARS CoV2 PCR: positive 08/15/2020 blood culture: No growth 08/17/2020 urine culture: Skin fay A/P: 64-year-old female with hypertension, diabetes, COPD, prior CVA, CKD was admitted to the hospital with cough and shortness of breath along with wheezing and headache going on for almost a month: #Bilateral pneumonia: secondary to COVID-19. Test was positive as outpatient as well. Symptomatic for a month. s/p empiric abx. Given prolonged symptoms and renal failure, unlikely to benefit from Remdesivir #Acute hypoxic respiratory failure: on 2L NC #ANGELIQUE on CKD: On intermittent HD per nephrology. #Mild transaminitis: Probably from COVID-19. Hepatitis panel negative. Resolved. #Leukocytosis: Likely secondary to steroids. Recs: -continue steroids, completed higher dose -s/p abx -on prophylactic anticoagulation per hospital protocol due elevated d-dimer Infectious disease will sign off, please call for questions. Ryder Sparks MD [facility] ([facility] O: [phone] F: [phone] Subjective Date of service: 09/02/20 Principal diagnosis: Acute respiratory failure with hypoxia, ANGELIQUE superimposed onCKD, Covid pneum Interval history: Afebrile, no acute changes. On 2 L nasal cannula. Objective - Exam Narrative Exam: Physical exam deferred due to PPE conservation strategy. Please refer to primary team's note. - Constitutional Vitals: Vital Signs Temp Pulse Resp BP Pulse Ox 98.7 F 119 H 20 99/56 98 09/02/20 11:29 09/02/20 11:30 09/02/20 11:29 09/02/20 11:29 09/02/20 11:30 Temperature -Last 24 Hours Temperature 98.7 F Temperature 98.5 F Temperature 98.2 F Temperature 98.3 F - Labs CBC & Chem 7: 08/31/20 07:09 08/31/20 07:09 Labs: Abnormal lab results 09/01/20 09/01/20 09/01/20 Range/Units 11:14 16:00 21:16 POC Glucose 166 H 108 H 148 H (70-105) mg/dL 09/02/20 09/02/20 Range/Units 07:29 11:15 POC Glucose 52 L 152 H (70-105) mg/dL
--- NOTE | 2020-09-02 13:26 | Progress Note ---
Assessment and Plan --COVID-19 pneumonia Status post azithromycin and ceftriaxone Not a candidate for remdesivir due to impaired renal function Continue dexamethasone Incentive spirometer Prone positioning as tolerated Pulmonology following ID on board --Acute hypoxic respiratory failure Secondary to Covid pneumonia Continue oxygen supplementation-on 5 L FiO2 40% Assess for home O2 requirement --ANGELIQUE on CKD now on hemodialysis Likely ATN, started on hemodialysis Continue hemodialysis as scheduled Nephrology on board, need outpatient hemodialysis set up --Hyperkalemia, due to declining renal function, resolved --Elevated D-dimer Ultrasound lower extremity Doppler negative Unable to obtain CTA chest due to allergies Continue apixaban 5 mg twice a day --HARPER, COPD States that she uses BiPAP at home BiPAP QHS, scheduled and as needed breathing treatment with nebulizer --Diabetes mellitus cont Lantus and lispro with Accu-Chek Continue home dose Tradjenta A1c 7.6 --Hyperlipidemia Continue statins --Hypertension Continue current medication Monitor palpitations -- Oral thrush Plced on Nystatin DVT/GI prophylaxis: SCDs to BLE while in bed, PPI, Eliquis twice daily Disposition: TTF Brief history: This is a 64-year-old female with hypertension, diabetes, COPD, CVA, gout, hyperlipidemia who presented to the emergency department on 08/15 for a productive cough, wheezing, headache, subjective fevers scratchy throat ongoing for 4 weeks since 07/21/2020 s/p Z-Bipin and steroids who was COVID-19 positive prior to admissi on. Upon evaluation in the ER, had a low-grade fever, noted to be hypoxic requiring supplemental oxygen. Patient also noted to be hyperkalemic with potassium as high as 6.7, and elevated creatinine with ANGELIQUE. Patient was admitted to the hospital for further evaluation management, pulmonology, infec tious disease, nephrology were consulted. Daily course: 08/31/20 - todate: pending d/c to SNF/[facility] 08/30: Patient on 5 L 40% FiO2 today. Continue to wean off as tolerated. Dis cussed with sample case porter -Patient is being plan to discharge to SNF. 08/29. Remains on 15L 55% HFNC. Continue to wean as tolerated. Prone positioning PRN. 08/28. Weaned down to 15 L 55%FiO2. Using incentive spirometer. 3/13. On HFNC - 30 L 705 FiO2. She has HARPER and uses BIPAP at home. BIPAP at bedside. Complains of pain with swallowing. Ordered nystatin. 08/26. On HFNC - 30 L 705 FiO2. She has HARPER and uses BIPAP at home. Will place order for BIPAP 08/25. On high flow nasal cannula 30 L, FiO2 90%. Started empirically on Eliquis 5 mg twice daily for possible PE. She has no complaints this morning. Has some cough. Pulmonology and ID following. Remains on steroids 08/24: Patient remains on HFNC at 40L, 80% FiO2, her ddimer>[id number] and her BLE Doppler US (-) for DVT. Unable to obtain a CTA chest due to allergy to contrast. We will treat Eliquis 5 mg twice daily. Wean supplemental oxygenati on as tolerated. Patient will be transferred to the floor today. 08/23: Patient complains of cough, intermittent shortness of breath, received hemodialysis today and remains on high flow nasal cannula at 40 L, 80%. No acute events reported overnight. VQ scan and bilateral lower extremity Doppler ultrasound pending 08/22: High flow nasal cannula, intermittent HD, high-dose steroids 08/21: High flow nasal cannula 08/20:-High flow nasal cannula 08/19:-High flow nasal cannula, PICC line ordered, bicarb 08/18: High flow nasal cannula, transferred to ICU 08/17: Hypoxia,-nasal cannula 3: High flow nasal cannula, Vas-Cath placement for intermittent HD, COVID-19 PCR positive Subjective Date of service: 09/01/20 Principal diagnosis: Acute respiratory failure with hypoxia, ANGELIQUE superimposed onCKD, Covid pneum Interval history: Patient seen and examined. Medical records and medication list reviewed. No acute event overnight noted by the RN. Patient remains on 5 L 40% FiO2. Patient is tolerating diet. Discussed plan of care at bedside with patient. Objective - Exam Narrative Exam: Limited physical exam due to COVID-19 pandemic to minimize transmission of the disease and to preserve PPE. Vital reviewed and stable. GENERAL: well-developed morbidly obese female lying on bed appeared to be in no discomfort. HEENT: Normocephalic. Atraumatic. NECK: Supple. CHEST/LUNGS: breathing nonlabored. HEART/CARDIOVASCULAR: Heart rate stable on telemetry ABDOMEN: Visibly not distended SKIN: There is no rash NEURO: No focal motor deficit. Follows command. MUSCULOSKELETAL: No joint effusion EXTRIMITY: No swelling, no cyanosis or clubbing. PSYCH: Cooperative. - Constitutional Vitals: Vital Signs - 12hr 09/02/20 09/02/20 09/02/20 04:16 04:45 07:54 Temperature 98.5 F Pulse Rate 100 H 105 H Respiratory 20 27 H Rate Blood Pressure 118/68 Blood Pressure [Left] O2 Sat by Pulse 96 96 96 Oximetry 09/02/20 09/02/20 11:29 11:30 Temperature 98.7 F Pulse Rate 119 H Respiratory 20 Rate Blood Pressure Blood Pressure 99/56 [Left] O2 Sat by Pulse 98 Oximetry - Labs CBC & Chem 7: 08/31/20 07:09 08/31/20 07:09 Labs: Abnormal lab results 09/01/20 09/01/20 09/01/20 Range/Units 11:14 16:00 21:16 POC Glucose 166 H 108 H 148 H (70-105) mg/dL 09/02/20 09/02/20 Range/Units 07:29 11:15 POC Glucose 52 L 152 H (70-105) mg/dL
[2020-09-02] MEDS: FLUCONAZOLE 200 MG TAB PO SCH (22:18)
[2020-09-02] MEDS: HYDROcodone/ACETAMINOPHEN 5-325 MG TAB PO PRN (22:43)
[2020-09-03] MEDS: FLUCONAZOLE 200 MG TAB PO SCH ×2 (03:16→10:12)
[2020-09-03] MEDS: BENZONATATE 100 MG CAP PO SCH ×3 (05:40→22:00)
[2020-09-03] MEDS: INSULIN LISPRO 100 UNIT/ML SUB-Q SCH ×5 (08:28→22:56)
--- NOTE | 2020-09-03 09:38 | Progress Note ---
Assessment and Plan Impression: #Acute kidney injury: She was initially on daily dialysis and was then transitioned to intermittent dialysis. #Has underlying chronic kidney disease her baseline creatinine is around 1.7-[address] Rivers's office #Respiratory failure resulting from Covid 19 pneumonia + fluid overload- being followed by pulmonary service. UF with HD as tolerated. Limit fluid intake to 1L/d #Covid 19 viral pneumonia with ARDS like picture, patient has multiorgan failure Plan: #HD MWF #she will need ongoing renal replacement therapy as tolerated for now. Monitor labs and I/O daily. # Keep MAP> 65 # Renally dose medications # Renal diet outpatient hd placement arranged, ok to dc from renal standpoint, Subjective Date of service: 09/03/20 Principal diagnosis: Acute respiratory failure with hypoxia, ANGELIQUE superimposed onCKD, Covid pneum Interval history: Subjective Date of service: 08/28/20 Principal diagnosis: Acute respiratory failure with hypoxia, ANGELIQUE superimposed onCKD, Covid pneum Interval history: Patient was seen for her renal issues Nursing, interdisciplinary and consult notes were reviewed Vitals, input and output, medications and labs were reviewed Objective - Exam Narrative Exam: deferred for preservation of ppe Objective - Vital Signs Vital signs: Vital Signs - 12hr 09/02/20 09/02/20 09/02/20 21:40 21:55 22:20 Temperature 98.3 F 98.2 F Pulse Rate 125 H 125 H 136 H Respiratory 18 22 Rate Blood Pressure 113/61 113/61 163/142 O2 Sat by Pulse 86 Oximetry 09/02/20 09/02/20 09/03/20 22:35 22:37 05:29 Temperature 98.5 F Pulse Rate 136 H 114 H Respiratory 20 Rate Blood Pressure 104/47 108/68 O2 Sat by Pulse 98 Oximetry - Lab 08/31/20 07:09 08/31/20 07:09 Most recent lab results Calcium 7.7 mg/dL (8.4-10.2) L 08/31/20 07:09 Phosphorus 5.90 mg/dL (2.5-4.5) H 08/17/20 09:35 Urine Creatinine 248.0 mg/dL (0.1-20.0) H 08/17/20 17:45 Urine Total Protein 196 mg/dL (5-11.8) H 08/17/20 17:45 Medications & Allergies - Medications Allergies/Adverse Reactions: Allergies gabapentin [From Neurontin] Allergy (Verified 08/15/20 17:25) Unknown rosuvastatin calcium [From Crestor] Allergy (Verified 08/15/20 17:25) Rash fluticasone propionate [From Advair Diskus] Adverse Reaction (Verified 08/15/20 17:25) Headache salmeterol xinafoate [From Advair Diskus] Adverse Reaction (Verified 08/15/20 17:25) Headache IV DYE Allergy (Uncoded 08/24/20 10:28) Itching Home Medications: Home Medications Medication Instructions Recorded Confirmed Last Taken Type Cyanocobalamin (Vitamin B-12) 1,000 mcg IJ QMONTH 08/15/20 08/15/20 Unknown History [Physicians Ez Use B-12] Ergocalciferol [Vitamin D2] 1 cap PO QWEEK 08/15/20 08/15/20 Unknown History Ezetimibe/Simvastatin 1 each PO DAILY 08/15/20 08/15/20 Unknown History [Ezetimibe-Simvastatin 10-20 mg] Famotidine [Pepcid] 40 mg PO DAILY 08/15/20 08/15/20 Unknown History Linagliptin [Tradjenta] 5 mg PO QDAY 08/15/20 08/15/20 Unknown History Omeprazole 40 mg PO DAILY 08/15/20 08/15/20 Unknown History allopurinoL [Zyloprim] 200 mg PO DAILY 08/15/20 08/15/20 Unknown History Spiriva 2.5 mcg INHALATION DAILY 08/17/20 08/17/20 Unknown History Symbicort 160-4.5 Mcg Inhaler 160 mcg INHALATION BID 08/17/20 08/17/20 Unknown History ALBUTEROL NEB's [Proventil 0.083% 2.5 mg IH Q6HRT PRN nebu 08/31/20 Unknown Rx NEBS] Apixaban [Eliquis] 5 mg PO Q12HR 7 Days 08/31/20 Unknown Rx Ascorbic Acid [Vitamin C] 1,000 mg PO BID tablet 08/31/20 Unknown Rx Benzonatate [Tessalon Perles] 100 mg PO Q8HR capsule 08/31/20 Unknown Rx Insulin Glargine [Lantus VIAL] 35 units SUB-Q BID units 08/31/20 Unknown Rx Lispro Insulin [HumaLOG] 0 unit SUB-Q ACHS units 08/31/20 Unknown Rx Nystatin [Nystatin SUSP] 400,000 unit PO TID 5 Days 08/31/20 Unknown Rx Zinc Sulfate 220 mg PO BID capsule 08/31/20 Unknown Rx calcitrioL [Rocaltrol] 0.25 mcg PO QDAY capsule 08/31/20 Unknown Rx Fluconazole [Diflucan TAB] 200 mg PO QDAY #7 tablet 09/02/20 Unknown Rx Active Medications: Generic Name Dose Route Start Last Admin Trade Name Freq PRN Reason Stop Dose Admin Acetaminophen 650 mg 08/15/20 22:16 08/19/20 01:17 Acetaminophen 325 Mg Tab PO 650 mg Q4H PRN Administration Pain MILD(1-3)/Fever >100.5/TELLO Hydrocodone Bitart/Acetaminophen 1 each 08/15/20 22:06 09/02/20 22:43 Hydrocodone/Acetaminophen 5-325 Mg Tab PO 1 each Q6HR PRN Administration Pain, Moderate (4-6) Albuterol 2.5 mg 08/27/20 00:38 Albuterol 2.5 Mg/3 Ml Nebu IH 09/26/20 00:36 Q6HRT PRN Shortness Of Breath Apixaban 5 mg 08/24/20 11:00 09/02/20 22:44 Apixaban 5 Mg Tab PO 5 mg Q12HR SYLVAIN Administration Protocol Ascorbic Acid 1,000 mg 08/15/20 23:00 09/02/20 22:44 Ascorbic Acid 500 Mg Tab PO 1,000 mg BID SYLVAIN Administration Benzonatate 100 mg 08/25/20 14:00 09/03/20 05:40 Benzonatate 100 Mg Cap PO 100 mg Q8HR SYLVAIN Administration Calcitriol 0.25 mcg 08/18/20 10:00 09/02/20 11:02 Calcitriol 0.25 Mcg Cap PO 0.25 mcg QDAY SYLVAIN Administration Dextrose 25 ml 08/27/20 08:08 Dextrose 50% In Water (25gm) 50 Ml Syringe IV Q30MIN PRN HYPOGLYCEMIA Protocol Ezetimibe 10 mg 08/16/20 10:00 09/02/20 11:02 Ezetimibe 10 Mg Tab PO 10 mg DAILY SYLVAIN Administration Fluconazole 200 mg 09/02/20 14:00 09/03/20 03:16 Fluconazole 200 Mg Tab PO 200 mg QDAY SYLVAIN Administration Protocol Hydromorphone HCl 0.5 mg 08/15/20 22:16 Hydromorphone 1 Mg/1 Ml Inj IV Q3H PRN Pain , Severe (7-10) Sodium Chloride 100 mls @ 999 mls/hr 08/24/20 08:20 Nacl 0.9% IV SARAI PRN Hypotension Insulin Glargine 20 units 09/02/20 22:00 09/02/20 22:44 Insulin Glargine 100 Units/Ml SUB-Q 20 units QHS SYLVAIN Administration Insulin Human Lispro 0 unit 08/18/20 13:23 09/03/20 08:28 Insulin Lispro 100 Unit/Ml SUB-Q Not Given ACHS SYLVAIN Protocol Linagliptin 5 mg 08/16/20 10:00 09/02/20 11:02 Linagliptin 5 Mg Tab PO 5 mg QDAY SYLVAIN Administration Metoclopramide HCl 5 mg 08/15/20 22:37 Metoclopramide 10 Mg/2 Ml Inj IV Q6H PRN Nausea And Vomiting Multivit/Ca Carb/B Cmplx/FA/Prenat 1 cap 08/18/20 10:00 09/02/20 11:01 Folic Acid/Vit B Comp W-C 1 Mg (Renal Caps) PO 1 cap DAILY SYLVAIN Administration Ondansetron HCl 4 mg 08/15/20 22:16 Ondansetron 4 Mg/2 Ml Inj IV Q8H PRN Nausea And Vomiting Oxycodone/Acetaminophen 1 tab 08/15/20 22:16 08/18/20 09:58 Oxycodone /Acetaminophen 5-325mg Tab PO 1 tab Q6H PRN Administration Pain, Moderate (4-6) Pantoprazole Sodium 40 mg 08/16/20 10:00 09/02/20 11:01 Pantoprazole 40 Mg Tab PO 40 mg DAILY SYLVAIN Administration Pravastatin Sodium 40 mg 08/16/20 10:00 09/02/20 11:01 Pravastatin 40 Mg Tab PO 40 mg DAILY SYLVAIN Administration Pseudoephedrine/Acetam/Chlorphenir 10 ml 08/18/20 10:30 08/23/20 17:21 Guaifenesin/Codeine 100-10mg Oral Liqd 5 Ml PO 10 ml Q4H PRN Administration Cough Sodium Chloride 10 ml 08/15/20 23:00 09/02/20 22:45 Sodium Chloride 0.9% 10 Ml Flush Syringe IV 10 ml BID SYLVAIN Administration Sodium Chloride 10 ml 08/15/20 22:16 Sodium Chloride 0.9% 10 Ml Flush Syringe IV PRN PRN LINE FLUSH Zinc Sulfate 220 mg 08/15/20 23:00 09/02/20 22:44 Zinc Sulfate 220 Mg Cap PO 220 mg BID SYLVAIN Administration
--- NOTE | 2020-09-03 10:02 | Progress Note ---
Assessment and Plan - Patient Problems (1) Dry eye syndrome Current Visit: Yes Status: Acute (2) Acute kidney injury superimposed on CKD Current Visit: Yes Status: Acute (3) Acute respiratory failure with hypoxia Current Visit: Yes Status: Acute (4) Bilateral pneumonia Current Visit: Yes Status: Acute (5) COVID-19 Current Visit: Yes Status: Acute (6) Hyperkalemia Current Visit: Yes Status: Acute (7) COPD (chronic obstructive pulmonary disease) Current Visit: Yes Status: Chronic (8) Hypertension Current Visit: Yes Status: Chronic Qualifiers: Hypertension type: essential hypertension Qualified Code(s): I10 - Essential (primary) hypertension (9) T2DM (type 2 diabetes mellitus) Current Visit: Yes Status: Chronic Qualifiers: Diabetes mellitus [facility] insulin use: unspecified rn long term care insulin use status Subjective Principal diagnosis: Acute respiratory failure with hypoxia, ANGELIQUE superimposed onCKD, Covid pneum Interval history: awake c/o dry eyes Objective Vital Signs - 12hr 09/02/20 09/02/20 09/02/20 22:20 22:35 22:37 Temperature 98.2 F Pulse Rate 136 H 136 H Respiratory 22 Rate Blood Pressure 163/142 104/47 O2 Sat by Pulse 86 Oximetry 09/03/20 05:29 Temperature 98.5 F Pulse Rate 114 H Respiratory 20 Rate Blood Pressure 108/68 O2 Sat by Pulse 98 Oximetry Constitutional: alert, other (obese, ) Eyes: non-icteric ENT: oropharynx moist Neck: supple Effort: normal Ascultation: Bilateral: diminished breath sounds Cardiovascular: regular rate and rhythm (no mrg) Gastrointestinal: normoactive bowel sounds, soft, non-tender, non-distended Integumentary: normal Extremities: no cyanosis, no edema Neurologic: normal mental status, non-focal exam Psychiatric: mood appropriate, affect normal CBC and BMP: 08/31/20 07:09 08/31/20 07:09 ABG, PT/INR, D-dimer: PT/INR, D-dimer D-Dimer > 32522 ng/mlDDU (0-234) H 08/23/20 14:07 Abnormal lab findings: Abnormal Labs 08/15/20 08/15/20 08/15/20 17:01 17:01 17:01 WBC RBC Hgb Hct MCH RDW 15.8 H Lymph % (Auto) 7.4 L Lymph # (Auto) 0.7 L [place] # (Auto) Seg Neutrophils % 85.1 H Seg Neuts % (Manual) Lymphocytes % (Manual) Seg Neutrophils # 7.9 H Lymphocytes # (Manual) D-Dimer 1750.12 H Sodium Potassium 5.1 H Chloride 97.1 L Carbon Dioxide BUN 67 H Creatinine 4.8 H Glucose 101 H POC Glucose Hemoglobin A1c Calcium Phosphorus Ferritin AST 53 H Lactate Dehydrogenase C-Reactive Protein Total Protein Albumin 3.4 L PTH Intact Ur Specific [place] Urine WBC (Auto) U Epithel Cells (Auto) Urine Creatinine Urine Total Protein Coronavirus (PCR) 08/15/20 08/15/20 08/15/20 17:01 17:01 17:01 WBC RBC Hgb Hct MCH RDW Lymph % (Auto) Lymph # (Auto) [place] # (Auto) Seg Neutrophils % Seg Neuts % (Manual) Lymphocytes % (Manual) Seg Neutrophils # Lymphocytes # (Manual) D-Dimer Sodium Potassium Chloride Carbon Dioxide BUN Creatinine Glucose 101 H POC Glucose Hemoglobin A1c Calcium Phosphorus Ferritin 667.2 H AST Lactate Dehydrogenase 606 H 567 H C-Reactive Protein 4.60 H 6.30 H Total Protein Albumin PTH Intact Ur Specific [place] Urine WBC (Auto) U Epithel Cells (Auto) Urine Creatinine Urine Total Protein Coronavirus (PCR) 08/16/20 08/16/20 08/16/20 04:32 04:32 04:32 WBC RBC Hgb Hct MCH 27 L RDW 15.9 H Lymph % (Auto) 12.6 L Lymph # (Auto) 0.8 L [place] # (Auto) Seg Neutrophils % 83.7 H Seg Neuts % (Manual) Lymphocytes % (Manual) Seg Neutrophils # Lymphocytes # (Manual) D-Dimer Sodium 136 L Potassium 6.7 H* D Chloride Carbon Dioxide BUN 78 H Creatinine 6.2 H Glucose 223 H POC Glucose Hemoglobin A1c 7.6 H Calcium 7.8 L Phosphorus Ferritin AST 47 H Lactate Dehydrogenase C-Reactive Protein Total Protein 5.8 L D Albumin 3.1 L PTH Intact Ur Specific [place] Urine WBC (Auto) U Epithel Cells (Auto) Urine Creatinine Urine Total Protein Coronavirus (PCR) 08/16/20 08/16/20 08/16/20 17:01 17:05 21:41 WBC RBC Hgb Hct MCH RDW Lymph % (Auto) Lymph # (Auto) [place] # (Auto) Seg Neutrophils % Seg Neuts % (Manual) Lymphocytes % (Manual) Seg Neutrophils # Lymphocytes # (Manual) D-Dimer Sodium Potassium Chloride Carbon Dioxide BUN 93 H Creatinine 7.7 H Glucose 228 H POC Glucose 150 H 204 H Hemoglobin A1c Calcium Phosphorus Ferritin AST Lactate Dehydrogenase C-Reactive Protein Total Protein Albumin PTH Intact Ur Specific [place] Urine WBC (Auto) U Epithel Cells (Auto) Urine Creatinine Urine Total Protein Coronavirus (PCR) 08/16/20 08/17/20 08/17/20 Unknown 07:31 07:31 WBC RBC Hgb Hct MCH 27 L RDW 16.0 H Lymph % (Auto) 4.2 L Lymph # (Auto) 0.4 L [place] # (Auto) Seg Neutrophils % 90.0 H Seg Neuts % (Manual) Lymphocytes % (Manual) Seg Neutrophils # 8.8 H Lymphocytes # (Manual) D-Dimer Sodium Potassium 5.8 H D Chloride Carbon Dioxide 20 L BUN 103 H Creatinine 9.0 H Glucose 219 H POC Glucose Hemoglobin A1c Calcium 7.9 L Phosphorus Ferritin AST Lactate Dehydrogenase C-Reactive Protein Total Protein Albumin PTH Intact Ur Specific [place] Urine WBC (Auto) U Epithel Cells (Auto) Urine Creatinine Urine Total Protein Coronavirus (PCR) Positive A 08/17/20 08/17/20 08/17/20 07:44 09:35 09:35 WBC RBC Hgb Hct MCH RDW Lymph % (Auto) Lymph # (Auto) [place] # (Auto) Seg Neutrophils % Seg Neuts % (Manual) Lymphocytes % (Manual) Seg Neutrophils # Lymphocytes # (Manual) D-Dimer Sodium Potassium Chloride Carbon Dioxide BUN Creatinine Glucose POC Glucose 188 H Hemoglobin A1c Calcium Phosphorus 5.90 H Ferritin AST Lactate Dehydrogenase C-Reactive Protein Total Protein Albumin PTH Intact 452.6 H Ur Specific [place] Urine WBC (Auto) U Epithel Cells (Auto) Urine Creatinine Urine Total Protein Coronavirus (PCR) 08/17/20 08/17/20 08/17/20 11:23 16:38 17:45 WBC RBC Hgb Hct MCH RDW Lymph % (Auto) Lymph # (Auto) [place] # (Auto) Seg Neutrophils % Seg Neuts % (Manual) Lymphocytes % (Manual) Seg Neutrophils # Lymphocytes # (Manual) D-Dimer Sodium Potassium Chloride Carbon Dioxide BUN Creatinine Glucose POC Glucose 205 H 212 H Hemoglobin A1c Calcium Phosphorus Ferritin AST Lactate Dehydrogenase C-Reactive Protein Total Protein Albumin PTH Intact Ur Specific [place] 1.039 H Urine WBC (Auto) 32.0 H U Epithel Cells (Auto) 44.0 H Urine Creatinine Urine Total Protein Coronavirus (PCR) 08/17/20 08/17/20 08/18/20 17:45 21:39 08:00 WBC RBC Hgb Hct MCH RDW Lymph % (Auto) Lymph # (Auto) [place] # (Auto) Seg Neutrophils % Seg Neuts % (Manual) Lymphocytes % (Manual) Seg Neutrophils # Lymphocytes # (Manual) D-Dimer Sodium Potassium Chloride Carbon Dioxide BUN Creatinine Glucose POC Glucose 206 H 229 H Hemoglobin A1c Calcium Phosphorus Ferritin AST Lactate Dehydrogenase C-Reactive Protein Total Protein Albumin PTH Intact Ur Specific [place] Urine WBC (Auto) U Epithel Cells (Auto) Urine Creatinine 248.0 H Urine Total Protein 196 H Coronavirus (PCR) 08/18/20 08/18/20 08/18/20 08:36 08:36 11:00 WBC RBC 3.64 L Hgb 10.0 L Hct MCH RDW 15.8 H Lymph % (Auto) 5.9 L Lymph # (Auto) 0.5 L [place] # (Auto) Seg Neutrophils % 87.3 H Seg Neuts % (Manual) Lymphocytes % (Manual) Seg Neutrophils # Lymphocytes # (Manual) D-Dimer Sodium 135 L D Potassium Chloride 95.8 L Carbon Dioxide 20 L BUN 84 H Creatinine 8.4 H Glucose 262 H POC Glucose 238 H Hemoglobin A1c Calcium 7.5 L Phosphorus Ferritin AST Lactate Dehydrogenase C-Reactive Protein Total Protein 6.1 L Albumin 2.5 L PTH Intact Ur Specific [place] Urine WBC (Auto) U Epithel Cells (Auto) Urine Creatinine Urine Total Protein Coronavirus (PCR) 08/18/20 08/18/20 08/19/20 16:14 21:52 04:23 WBC RBC 3.53 L Hgb 9.5 L Hct 30.0 L MCH 27 L RDW 15.6 H Lymph % (Auto) Lymph # (Auto) [place] # (Auto) Seg Neutrophils % Seg Neuts % (Manual) 84.0 H Lymphocytes % (Manual) 9.0 L Seg Neutrophils # Lymphocytes # (Manual) 0.5 L D-Dimer Sodium Potassium Chloride Carbon Dioxide BUN Creatinine Glucose POC Glucose 248 H 303 H Hemoglobin A1c Calcium Phosphorus Ferritin AST Lactate Dehydrogenase C-Reactive Protein Total Protein Albumin PTH Intact Ur Specific [place] Urine WBC (Auto) U Epithel Cells (Auto) Urine Creatinine Urine Total Protein Coronavirus (PCR) 08/19/20 08/19/20 08/19/20 04:23 06:44 11:53 WBC RBC Hgb Hct MCH RDW Lymph % (Auto) Lymph # (Auto) [place] # (Auto) Seg Neutrophils % Seg Neuts % (Manual) Lymphocytes % (Manual) Seg Neutrophils # Lymphocytes # (Manual) D-Dimer Sodium Potassium Chloride 97.2 L Carbon Dioxide BUN 86 H Creatinine 9.2 H Glucose 271 H POC Glucose 213 H 266 H Hemoglobin A1c Calcium 7.5 L Phosphorus Ferritin AST Lactate Dehydrogenase C-Reactive Protein Total Protein 5.8 L Albumin 2.5 L PTH Intact Ur Specific [place] Urine WBC (Auto) U Epithel Cells (Auto) Urine Creatinine Urine Total Protein Coronavirus (PCR) 08/19/20 08/19/20 08/19/20 16:58 16:58 16:58 WBC RBC Hgb Hct MCH RDW Lymph % (Auto) Lymph # (Auto) [place] # (Auto) Seg Neutrophils % Seg Neuts % (Manual) Lymphocytes % (Manual) Seg Neutrophils # Lymphocytes # (Manual) D-Dimer > 72989 H Sodium Potassium Chloride Carbon Dioxide BUN Creatinine Glucose POC Glucose Hemoglobin A1c Calcium Phosphorus Ferritin 1043.0 H AST Lactate Dehydrogenase 721 H C-Reactive Protein 3.00 H Total Protein Albumin PTH Intact Ur Specific [place] Urine WBC (Auto) U Epithel Cells (Auto) Urine Creatinine Urine Total Protein Coronavirus (PCR) 08/19/20 08/19/20 08/20/20 17:18 22:53 06:38 WBC RBC Hgb Hct MCH RDW Lymph % (Auto) Lymph # (Auto) [place] # (Auto) Seg Neutrophils % Seg Neuts % (Manual) Lymphocytes % (Manual) Seg Neutrophils # Lymphocytes # (Manual) D-Dimer Sodium Potassium Chloride Carbon Dioxide BUN Creatinine Glucose POC Glucose 223 H 273 H 268 H Hemoglobin A1c Calcium Phosphorus Ferritin AST Lactate Dehydrogenase C-Reactive Protein Total Protein Albumin PTH Intact Ur Specific [place] Urine WBC (Auto) U Epithel Cells (Auto) Urine Creatinine Urine Total Protein Coronavirus (PCR) 08/20/20 08/20/20 08/20/20 08:21 11:47 15:46 WBC RBC Hgb Hct MCH RDW Lymph % (Auto) Lymph # (Auto) [place] # (Auto) Seg Neutrophils % Seg Neuts % (Manual) Lymphocytes % (Manual) Seg Neutrophils # Lymphocytes # (Manual) D-Dimer Sodium Potassium Chloride Carbon Dioxide BUN Creatinine Glucose POC Glucose 264 H 288 H 262 H Hemoglobin A1c Calcium Phosphorus Ferritin AST Lactate Dehydrogenase C-Reactive Protein Total Protein Albumin PTH Intact Ur Specific [place] Urine WBC (Auto) U Epithel Cells (Auto) Urine Creatinine Urine Total Protein Coronavirus (PCR) 08/20/20 08/21/20 08/21/20 21:33 07:46 11:56 WBC RBC Hgb Hct MCH RDW Lymph % (Auto) Lymph # (Auto) [place] # (Auto) Seg Neutrophils % Seg Neuts % (Manual) Lymphocytes % (Manual) Seg Neutrophils # Lymphocytes # (Manual) D-Dimer Sodium Potassium Chloride Carbon Dioxide BUN Creatinine Glucose POC Glucose 274 H 249 H 227 H Hemoglobin A1c Calcium Phosphorus Ferritin AST Lactate Dehydrogenase C-Reactive Protein Total Protein Albumin PTH Intact Ur Specific [place] Urine WBC (Auto) U Epithel Cells (Auto) Urine Creatinine Urine Total Protein Coronavirus (PCR) 08/21/20 08/21/20 08/22/20 17:19 21:34 08:48 WBC RBC Hgb Hct MCH RDW Lymph % (Auto) Lymph # (Auto) [place] # (Auto) Seg Neutrophils % Seg Neuts % (Manual) Lymphocytes % (Manual) Seg Neutrophils # Lymphocytes # (Manual) D-Dimer Sodium Potassium Chloride Carbon Dioxide BUN Creatinine Glucose POC Glucose 318 H 286 H 257 H Hemoglobin A1c Calcium Phosphorus Ferritin AST Lactate Dehydrogenase C-Reactive Protein Total Protein Albumin PTH Intact Ur Specific [place] Urine WBC (Auto) U Epithel Cells (Auto) Urine Creatinine Urine Total Protein Coronavirus (PCR) 08/22/20 08/22/20 08/22/20 12:34 17:41 21:22 WBC RBC Hgb Hct MCH RDW Lymph % (Auto) Lymph # (Auto) [place] # (Auto) Seg Neutrophils % Seg Neuts % (Manual) Lymphocytes % (Manual) Seg Neutrophils # Lymphocytes # (Manual) D-Dimer Sodium Potassium Chloride Carbon Dioxide BUN Creatinine Glucose POC Glucose 324 H 283 H 308 H Hemoglobin A1c Calcium Phosphorus Ferritin AST Lactate Dehydrogenase C-Reactive Protein Total Protein Albumin PTH Intact Ur Specific [place] Urine WBC (Auto) U Epithel Cells (Auto) Urine Creatinine Urine Total Protein Coronavirus (PCR) 08/23/20 08/23/20 08/23/20 05:24 05:47 05:47 WBC 13.7 H RBC Hgb 9.9 L Hct MCH 27 L RDW Lymph % (Auto) Lymph # (Auto) [place] # (Auto) Seg Neutrophils % Seg Neuts % (Manual) Lymphocytes % (Manual) Seg Neutrophils # Lymphocytes # (Manual) D-Dimer Sodium 133 L Potassium Chloride 90.4 L Carbon Dioxide BUN 103 H Creatinine 9.5 H Glucose 346 H POC Glucose 297 H Hemoglobin A1c Calcium 7.9 L Phosphorus Ferritin AST Lactate Dehydrogenase C-Reactive Protein Total Protein Albumin PTH Intact Ur Specific [place] Urine WBC (Auto) U Epithel Cells (Auto) Urine Creatinine Urine Total Protein Coronavirus (PCR) 08/23/20 08/23/20 08/23/20 07:34 10:58 14:07 WBC RBC Hgb Hct MCH RDW Lymph % (Auto) Lymph # (Auto) [place] # (Auto) Seg Neutrophils % Seg Neuts % (Manual) Lymphocytes % (Manual) Seg Neutrophils # Lymphocytes # (Manual) D-Dimer > 74678 H Sodium Potassium Chloride Carbon Dioxide BUN Creatinine Glucose POC Glucose 276 H 334 H Hemoglobin A1c Calcium Phosphorus Ferritin AST Lactate Dehydrogenase C-Reactive Protein Total Protein Albumin PTH Intact Ur Specific [place] Urine WBC (Auto) U Epithel Cells (Auto) Urine Creatinine Urine Total Protein Coronavirus (PCR) 08/23/20 08/23/20 08/23/20 14:07 14:07 15:54 WBC RBC Hgb Hct MCH RDW Lymph % (Auto) Lymph # (Auto) [place] # (Auto) Seg Neutrophils % Seg Neuts % (Manual) Lymphocytes % (Manual) Seg Neutrophils # Lymphocytes # (Manual) D-Dimer Sodium Potassium Chloride Carbon Dioxide BUN Creatinine Glucose POC Glucose 248 H Hemoglobin A1c Calcium Phosphorus Ferritin 1053.0 H AST Lactate Dehydrogenase 994 H C-Reactive Protein Total Protein Albumin PTH Intact Ur Specific [place] Urine WBC (Auto) U Epithel Cells (Auto) Urine Creatinine Urine Total Protein Coronavirus (PCR) 08/23/20 08/24/20 08/24/20 21:18 06:06 06:06 WBC 17.9 H RBC Hgb 10.0 L Hct MCH 26 L RDW Lymph % (Auto) Lymph # (Auto) [place] # (Auto) Seg Neutrophils % Seg Neuts % (Manual) Lymphocytes % (Manual) Seg Neutrophils # Lymphocytes # (Manual) D-Dimer Sodium Potassium 5.2 H Chloride 94.8 L Carbon Dioxide BUN 79 H Creatinine 7.9 H Glucose 230 H POC Glucose 206 H Hemoglobin A1c Calcium 8.3 L Phosphorus Ferritin AST Lactate Dehydrogenase C-Reactive Protein Total Protein Albumin PTH Intact Ur Specific [place] Urine WBC (Auto) U [place]ithel Cells (Auto) Urine Creatinine Urine Total Protein Coronavirus (PCR) 08/24/20 08/24/20 08/24/20 07:44 11:31 15:51 WBC RBC Hgb Hct MCH RDW Lymph % (Auto) Lymph # (Auto) [place] # (Auto) Seg Neutrophils % Seg Neuts % (Manual) Lymphocytes % (Manual) Seg Neutrophils # Lymphocytes # (Manual) D-Dimer Sodium Potassium Chloride Carbon Dioxide BUN Creatinine Glucose POC Glucose 199 H 307 H 325 H Hemoglobin A1c Calcium Phosphorus Ferritin AST Lactate Dehydrogenase C-Reactive Protein Total Protein Albumin PTH Intact Ur Specific [place] Urine WBC (Auto) U [place]ithel Cells (Auto) Urine Creatinine Urine Total Protein Coronavirus (PCR) 08/24/20 08/25/20 08/25/20 21:43 08:08 08:14 WBC RBC Hgb Hct MCH RDW Lymph % (Auto) Lymph # (Auto) [place] # (Auto) Seg Neutrophils % Seg Neuts % (Manual) Lymphocytes % (Manual) Seg Neutrophils # Lymphocytes # (Manual) D-Dimer Sodium Potassium Chloride Carbon Dioxide BUN 65 H Creatinine 6.6 H Glucose 278 H POC Glucose 227 H 253 H Hemoglobin A1c Calcium Phosphorus Ferritin AST Lactate Dehydrogenase C-Reactive Protein Total Protein Albumin PTH Intact Ur Specific [place] Urine WBC (Auto) U [place]ithel Cells (Auto) Urine Creatinine Urine Total Protein Coronavirus (PCR) 08/25/20 08/25/20 08/25/20 08:14 10:53 16:18 WBC 19.0 H RBC Hgb Hct MCH 27 L RDW 15.8 H Lymph % (Auto) Lymph # (Auto) [place] # (Auto) Seg Neutrophils % Seg Neuts % (Manual) Lymphocytes % (Manual) Seg Neutrophils # Lymphocytes # (Manual) D-Dimer Sodium Potassium Chloride Carbon Dioxide BUN Creatinine Glucose POC Glucose 332 H 329 H Hemoglobin A1c Calcium Phosphorus Ferritin AST Lactate Dehydrogenase C-Reactive Protein Total Protein Albumin PTH Intact Ur Specific [place] Urine WBC (Auto) U [place]ithel Cells (Auto) Urine Creatinine Urine Total Protein Coronavirus (PCR) 08/25/20 08/26/20 08/26/20 21:52 01:10 08:21 WBC RBC Hgb Hct MCH RDW Lymph % (Auto) Lymph # (Auto) [place] # (Auto) Seg Neutrophils % Seg Neuts % (Manual) Lymphocytes % (Manual) Seg Neutrophils # Lymphocytes # (Manual) D-Dimer Sodium Potassium Chloride Carbon Dioxide BUN Creatinine Glucose POC Glucose 311 H 426 H 182 H Hemoglobin A1c Calcium Phosphorus Ferritin AST Lactate Dehydrogenase C-Reactive Protein Total Protein Albumin PTH Intact Ur Specific [place] Urine WBC (Auto) U [place]ithel Cells (Auto) Urine Creatinine Urine Total Protein Coronavirus (PCR) 08/26/20 08/26/20 08/26/20 10:38 11:05 16:36 WBC RBC Hgb Hct MCH RDW Lymph % (Auto) Lymph # (Auto) [place] # (Auto) Seg Neutrophils % Seg Neuts % (Manual) Lymphocytes % (Manual) Seg Neutrophils # Lymphocytes # (Manual) D-Dimer Sodium Potassium Chloride 95.5 L Carbon Dioxide BUN 95 H Creatinine 8.9 H Glucose 216 H POC Glucose 191 H 173 H Hemoglobin A1c Calcium Phosphorus Ferritin AST Lactate Dehydrogenase C-Reactive Protein Total Protein Albumin PTH Intact Ur Specific [place] Urine WBC (Auto) U [place]ithel Cells (Auto) Urine Creatinine Urine Total Protein Coronavirus (PCR) 08/26/20 08/27/20 08/27/20 22:22 06:13 07:36 WBC RBC Hgb Hct MCH RDW Lymph % (Auto) Lymph # (Auto) [place] # (Auto) Seg Neutrophils % Seg Neuts % (Manual) Lymphocytes % (Manual) Seg Neutrophils # Lymphocytes # (Manual) D-Dimer Sodium Potassium Chloride Carbon Dioxide BUN 61 H Creatinine 6.9 H Glucose 52 L POC Glucose 160 H 38 L Hemoglobin A1c Calcium Phosphorus Ferritin AST Lactate Dehydrogenase C-Reactive Protein Total Protein Albumin PTH Intact Ur Specific [place] Urine WBC (Auto) U [place]it[place] Cells (Auto) Urine Creatinine Urine Total Protein Coronavirus (PCR) 08/27/20 08/27/20 08/27/20 08:19 10:56 16:07 WBC RBC Hgb Hct MCH RDW Lymph % (Auto) Lymph # (Auto) [place] # (Auto) Seg Neutrophils % Seg Neuts % (Manual) Lymphocytes % (Manual) Seg Neutrophils # Lymphocytes # (Manual) D-Dimer Sodium Potassium Chloride Carbon Dioxide BUN Creatinine Glucose POC Glucose 61 L 147 H 230 H Hemoglobin A1c Calcium Phosphorus Ferritin AST Lactate Dehydrogenase C-Reactive Protein Total Protein Albumin PTH Intact Ur Specific [place] Urine WBC (Auto) U [place]ithel Cells (Auto) Urine Creatinine Urine Total Protein Coronavirus (PCR) 08/27/20 08/28/20 08/28/20 21:31 07:23 07:28 WBC RBC Hgb Hct MCH RDW Lymph % (Auto) Lymph # (Auto) [place] # (Auto) Seg Neutrophils % Seg Neuts % (Manual) Lymphocytes % (Manual) Seg Neutrophils # Lymphocytes # (Manual) D-Dimer Sodium 136 L Potassium Chloride 96.4 L Carbon Dioxide BUN 47 H Creatinine 5.8 H Glucose 314 H POC Glucose 314 H 292 H Hemoglobin A1c Calcium 7.8 L Phosphorus Ferritin AST Lactate Dehydrogenase C-Reactive Protein Total Protein Albumin PTH Intact Ur Specific [place] Urine WBC (Auto) U Epithel Cells (Auto) Urine Creatinine Urine Total Protein Coronavirus (PCR) 08/28/20 08/28/20 08/28/20 11:10 16:28 21:44 WBC RBC Hgb Hct MCH RDW Lymph % (Auto) Lymph # (Auto) [place] # (Auto) Seg Neutrophils % Seg Neuts % (Manual) Lymphocytes % (Manual) Seg Neutrophils # Lymphocytes # (Manual) D-Dimer Sodium Potassium Chloride Carbon Dioxide BUN Creatinine Glucose POC Glucose 287 H 268 H 282 H Hemoglobin A1c Calcium Phosphorus Ferritin AST Lactate Dehydrogenase C-Reactive Protein Total Protein Albumin PTH Intact Ur Specific [place] Urine WBC (Auto) U Epithel Cells (Auto) Urine Creatinine Urine Total Protein Coronavirus (PCR) 08/29/20 08/29/20 08/29/20 06:42 08:18 11:14 WBC RBC Hgb Hct MCH RDW Lymph % (Auto) Lymph # (Auto) [place] # (Auto) Seg Neutrophils % Seg Neuts % (Manual) Lymphocytes % (Manual) Seg Neutrophils # Lymphocytes # (Manual) D-Dimer Sodium 135 L Potassium Chloride 95.9 L Carbon Dioxide BUN 72 H Creatinine 8.0 H Glucose 236 H POC Glucose 172 H 206 H Hemoglobin A1c Calcium 7.9 L Phosphorus Ferritin AST Lactate Dehydrogenase C-Reactive Protein Total Protein Albumin PTH Intact Ur Specific [place] Urine WBC (Auto) U Epithel Cells (Auto) Urine Creatinine Urine Total Protein Coronavirus (PCR) 08/29/20 08/30/20 08/30/20 16:23 00:02 07:36 WBC RBC Hgb Hct MCH RDW Lymph % (Auto) Lymph # (Auto) [place] # (Auto) Seg Neutrophils % Seg Neuts % (Manual) Lymphocytes % (Manual) Seg Neutrophils # Lymphocytes # (Manual) D-Dimer Sodium Potassium Chloride Carbon Dioxide BUN Creatinine Glucose POC Glucose 242 H 220 H 149 H Hemoglobin A1c Calcium Phosphorus Ferritin AST Lactate Dehydrogenase C-Reactive Protein Total Protein Albumin PTH Intact Ur Specific [place] Urine WBC (Auto) U Epithel Cells (Auto) Urine Creatinine Urine Total Protein Coronavirus (PCR) 08/30/20 08/30/20 08/30/20 10:54 15:18 21:47 WBC RBC Hgb Hct MCH RDW Lymph % (Auto) Lymph # (Auto) [place] # (Auto) Seg Neutrophils % Seg Neuts % (Manual) Lymphocytes % (Manual) Seg Neutrophils # Lymphocytes # (Manual) D-Dimer Sodium Potassium Chloride Carbon Dioxide BUN Creatinine Glucose POC Glucose 170 H 216 H 331 H Hemoglobin A1c Calcium Phosphorus Ferritin AST Lactate Dehydrogenase C-Reactive Protein Total Protein Albumin PTH Intact Ur Specific [place] Urine WBC (Auto) U Epithel Cells (Auto) Urine Creatinine Urine Total Protein Coronavirus (PCR) 08/31/20 08/31/20 08/31/20 07:09 07:09 11:45 WBC 14.7 H RBC 3.31 L Hgb 9.0 L Hct 28.2 L MCH 27 L RDW 15.9 H Lymph % (Auto) 5.4 L Lymph # (Auto) 0.8 L [place] # (Auto) 0.9 H Seg Neutrophils % 87.3 H Seg Neuts % (Manual) Lymphocytes % (Manual) Seg Neutrophils # 12.8 H Lymphocytes # (Manual) D-Dimer Sodium Potassium Chloride 95.3 L Carbon Dioxide BUN 71 H Creatinine 8.2 H Glucose 123 H POC Glucose 154 H Hemoglobin A1c Calcium 7.7 L Phosphorus Ferritin AST Lactate Dehydrogenase C-Reactive Protein Total Protein Albumin PTH Intact Ur Specific [place] Urine WBC (Auto) U Epithel Cells (Auto) Urine Creatinine Urine Total Protein Coronavirus (PCR) 08/31/20 08/31/20 09/01/20 16:58 21:41 07:57 WBC RBC Hgb Hct MCH RDW Lymph % (Auto) Lymph # (Auto) [place] # (Auto) Seg Neutrophils % Seg Neuts % (Manual) Lymphocytes % (Manual) Seg Neutrophils # Lymphocytes # (Manual) D-Dimer Sodium Potassium Chloride Carbon Dioxide BUN Creatinine Glucose POC Glucose 279 H 237 H 127 H Hemoglobin A1c Calcium Phosphorus Ferritin AST Lactate Dehydrogenase C-Reactive Protein Total Protein Albumin PTH Intact Ur Specific [place] Urine WBC (Auto) U Epithel Cells (Auto) Urine Creatinine Urine Total Protein Coronavirus (PCR) 09/01/20 09/01/20 09/01/20 11:14 16:00 21:16 WBC RBC Hgb Hct MCH RDW Lymph % (Auto) Lymph # (Auto) [place] # (Auto) Seg Neutrophils % Seg Neuts % (Manual) Lymphocytes % (Manual) Seg Neutrophils # Lymphocytes # (Manual) D-Dimer Sodium Potassium Chloride Carbon Dioxide BUN Creatinine Glucose POC Glucose 166 H 108 H 148 H Hemoglobin A1c Calcium Phosphorus Ferritin AST Lactate Dehydrogenase C-Reactive Protein Total Protein Albumin PTH Intact Ur Specific [place] Urine WBC (Auto) U Epithel Cells (Auto) Urine Creatinine Urine Total Protein Coronavirus (PCR) 09/02/20 09/02/20 09/02/20 07:29 11:15 15:50 WBC RBC Hgb Hct MCH RDW Lymph % (Auto) Lymph # (Auto) [place] # (Auto) Seg Neutrophils % Seg Neuts % (Manual) Lymphocytes % (Manual) Seg Neutrophils # Lymphocytes # (Manual) D-Dimer Sodium Potassium Chloride Carbon Dioxide BUN Creatinine Glucose POC Glucose 52 L 152 H 168 H Hemoglobin A1c Calcium Phosphorus Ferritin AST Lactate Dehydrogenase C-Reactive Protein Total Protein Albumin PTH Intact Ur Specific [place] Urine WBC (Auto) U Epithel Cells (Auto) Urine Creatinine Urine Total Protein Coronavirus (PCR) 09/02/20 22:13 WBC RBC Hgb Hct MCH RDW Lymph % (Auto) Lymph # (Auto) [place] # (Auto) Seg Neutrophils % Seg Neuts % (Manual) Lymphocytes % (Manual) Seg Neutrophils # Lymphocytes # (Manual) D-Dimer Sodium Potassium Chloride Carbon Dioxide BUN Creatinine Glucose POC Glucose 199 H Hemoglobin A1c Calcium Phosphorus Ferritin AST Lactate Dehydrogenase C-Reactive Protein Total Protein Albumin PTH Intact Ur Specific [place] Urine WBC (Auto) U Epithel Cells (Auto) Urine Creatinine Urine Total Protein Coronavirus (PCR)
[2020-09-03] MEDS: ASCORBIC ACID 500 MG TAB PO SCH ×2 (10:11→22:00)
[2020-09-03] MEDS: LINAGLIPTIN 5 MG TAB PO SCH (10:11)
[2020-09-03] MEDS: EZETIMIBE 10 MG TAB PO SCH (10:11)
[2020-09-03] MEDS: APIXABAN 5 MG TAB PO SCH ×2 (10:11→22:00)
[2020-09-03] MEDS: CALCITRIOL 0.25 MCG CAP PO SCH (10:11)
[2020-09-03] MEDS: ZINC SULFATE 220 MG CAP PO SCH ×2 (10:11→22:00)
[2020-09-03] MEDS: FOLIC ACID/VIT B COMP W-C 1 MG (RENAL CAPS) PO SCH (10:11)
[2020-09-03] MEDS: PANTOPRAZOLE 40 MG TAB PO SCH (10:12)
[2020-09-03] MEDS: PRAVASTATIN 40 MG TAB PO SCH (10:12)
[2020-09-03 10:48] LABS: Hematocrit 27.2 % (30.3-42.9); Hemoglobin 8.6 gm/dl (10.1-14.3); Mean Corpuscular HGB Conc 32 % (30-34); Mean Corpuscular Volume 85 fl (79-97); Red Blood Count 3.19 M/mm3 (3.65-5.03); Red Cell Distribution Width 16.5 % (13.2-15.2)
[2020-09-03 10:49] LABS: Platelet Count 106 K/mm3 (140-440)
[2020-09-03 10:56] LABS: Calcium 7.5 mg/dL (8.4-10.2)
[2020-09-03] MEDS: CARBOXYMETHYLCELLULOSE OU PRN ×2 (11:25→17:23)
[2020-09-03 11:57] LABS: Total Cells Counted 100
[2020-09-03 11:58] LABS: Platelet Estimate Consistent w Auto; Tear Drop Cells Few
--- NOTE | 2020-09-03 13:02 | Progress Note ---
Assessment and Plan --COVID-19 pneumonia Status post azithromycin and ceftriaxone Not a candidate for remdesivir due to impaired renal function Continue dexamethasone Incentive spirometer Prone positioning as tolerated Pulmonology following ID on board --Acute hypoxic respiratory failure Secondary to Covid pneumonia Continue oxygen supplementation-on 5 L FiO2 40% Assess for home O2 requirement --ANGELIQUE on CKD now on hemodialysis Likely ATN, started on hemodialysis Continue hemodialysis as scheduled Nephrology on board, need outpatient hemodialysis set up --Hyperkalemia, due to declining renal function, resolved --Elevated D-dimer Ultrasound lower extremity Doppler negative Unable to obtain CTA chest due to allergies Continue apixaban 5 mg twice a day --HARPER, COPD States that she uses BiPAP at home BiPAP QHS, scheduled and as needed breathing treatment with nebulizer --Diabetes mellitus cont Lantus and lispro with Accu-Chek Continue home dose Tradjenta A1c 7.6 --Hyperlipidemia Continue statins --Hypertension Continue current medication Monitor palpitations -- Oral thrush Plced on Nystatin DVT/GI prophylaxis: SCDs to BLE while in bed, PPI, Eliquis twice daily Disposition: TTF Brief history: This is a 64-year-old female with hypertension, diabetes, COPD, CVA, gout, hyperlipidemia who presented to the emergency department on 08/15 for a productive cough, wheezing, headache, subjective fevers scratchy throat ongoing for 4 weeks since 07/21/2020 s/p Z-Bipin and steroids who was COVID-19 positive prior to admissi on. Upon evaluation in the ER, had a low-grade fever, noted to be hypoxic requiring supplemental oxygen. Patient also noted to be hyperkalemic with potassium as high as 6.7, and elevated creatinine with ANGELIQUE. Patient was admitted to the hospital for further evaluation management, pulmonology, infec tious disease, nephrology were consulted. Daily course: 08/31/20 - todate: pending d/c to SNF/[facility] 08/30: Patient on 5 L 40% FiO2 today. Continue to wean off as tolerated. Dis cussed with welfare case worker -Patient is being plan to discharge to SNF. 08/29. Remains on 15L 55% HFNC. Continue to wean as tolerated. Prone positioning PRN. 08/28. Weaned down to 15 L 55%FiO2. Using incentive spirometer. 3/13. On HFNC - 30 L 705 FiO2. She has HARPER and uses BIPAP at home. BIPAP at bedside. Complains of pain with swallowing. Ordered nystatin. 08/26. On HFNC - 30 L 705 FiO2. She has HARPER and uses BIPAP at home. Will place order for BIPAP 08/25. On high flow nasal cannula 30 L, FiO2 90%. Started empirically on Eliquis 5 mg twice daily for possible PE. She has no complaints this morning. Has some cough. Pulmonology and ID following. Remains on steroids 08/24: Patient remains on HFNC at 40L, 80% FiO2, her ddimer>[id number] and her BLE Doppler US (-) for DVT. Unable to obtain a CTA chest due to allergy to contrast. We will treat Eliquis 5 mg twice daily. Wean supplemental oxygenati on as tolerated. Patient will be transferred to the floor today. 08/23: Patient complains of cough, intermittent shortness of breath, received hemodialysis today and remains on high flow nasal cannula at 40 L, 80%. No acute events reported overnight. VQ scan and bilateral lower extremity Doppler ultrasound pending 08/22: High flow nasal cannula, intermittent HD, high-dose steroids 08/21: High flow nasal cannula 08/20:-High flow nasal cannula 08/19:-High flow nasal cannula, PICC line ordered, bicarb 08/18: High flow nasal cannula, transferred to ICU 08/17: Hypoxia,-nasal cannula 3: High flow nasal cannula, Vas-Cath placement for intermittent HD, COVID-19 PCR positive Subjective Date of service: 09/02/20 Principal diagnosis: Acute respiratory failure with hypoxia, ANGELIQUE superimposed onCKD, Covid pneum Interval history: Patient seen and examined. Medical records and medication list reviewed. No acute event overnight noted by the RN. Patient remains on 5 L 40% FiO2. Patient is tolerating diet. Discussed plan of care at bedside with patient. Objective - Exam Narrative Exam: Limited physical exam due to COVID-19 pandemic to minimize transmission of the disease and to preserve PPE. Vital reviewed and stable. GENERAL: well-developed morbidly obese female lying on bed appeared to be in no discomfort. HEENT: Normocephalic. Atraumatic. NECK: Supple. CHEST/LUNGS: breathing nonlabored. HEART/CARDIOVASCULAR: Heart rate stable on telemetry ABDOMEN: Visibly not distended SKIN: There is no rash NEURO: No focal motor deficit. Follows command. MUSCULOSKELETAL: No joint effusion EXTRIMITY: No swelling, no cyanosis or clubbing. PSYCH: Cooperative. - Constitutional Vitals: Vital Signs - 12hr 09/03/20 05:29 Temperature 98.5 F Pulse Rate 114 H Respiratory 20 Rate Blood Pressure 108/68 O2 Sat by Pulse 98 Oximetry - Labs CBC & Chem 7: 09/03/20 10:02 09/03/20 10:02 Labs: Abnormal lab results 09/02/20 09/02/20 09/03/20 Range/Units 15:50 22:13 10:02 WBC 12.6 H (4.5-11.0) K/mm3 RBC 3.19 L (3.65-5.03) M/mm3 Hgb 8.6 L (10.1-14.3) gm/dl Hct 27.2 L (30.3-42.9) % MCH 27 L (28-32) pg RDW 16.5 H (13.2-15.2) % Plt Count 106 L (140-440) K/mm3 Seg Neuts % (Manual) 87.0 H (40.0-70.0) % Lymphocytes % (Manual) 6.0 L (13.4-35.0) % Seg Neutrophils # Man 11.0 H (1.8-7.7) K/mm3 Lymphocytes # (Manual) 0.8 L (1.2-5.4) K/mm3 Eosinophils # (Manual) 0.5 H (0.0-0.4) K/mm3 BUN (7-17) mg/dL Creatinine (0.6-1.2) mg/dL Glucose (65-100) mg/dL POC Glucose 168 H 199 H (70-105) mg/dL Calcium (8.4-10.2) mg/dL 09/03/20 Range/Units 10:02 WBC (4.5-11.0) K/mm3 RBC (3.65-5.03) M/mm3 Hgb (10.1-14.3) gm/dl Hct (30.3-42.9) % MCH (28-32) pg RDW (13.2-15.2) % Plt Count (140-440) K/mm3 Seg Neuts % (Manual) (40.0-70.0) % Lymphocytes % (Manual) (13.4-35.0) % Seg Neutrophils # Man (1.8-7.7) K/mm3 Lymphocytes # (Manual) (1.2-5.4) K/mm3 Eosinophils # (Manual) (0.0-0.4) K/mm3 BUN 39 H (7-17) mg/dL Creatinine 5.6 H (0.6-1.2) mg/dL Glucose 179 H (65-100) mg/dL POC Glucose (70-105) mg/dL Calcium 7.5 L (8.4-10.2) mg/dL
--- NOTE | 2020-09-03 13:04 | Progress Note ---
Assessment and Plan --COVID-19 pneumonia Status post azithromycin and ceftriaxone Not a candidate for remdesivir due to impaired renal function s/p dexamethasone for total 10 days Incentive spirometer Prone positioning as tolerated Pulmonology following ID on board --Acute hypoxic respiratory failure Secondary to Covid pneumonia Continue oxygen supplementation-on 5 L FiO2 40% Assess for home O2 requirement --ANGELIQUE on CKD now on hemodialysis Likely ATN, started on hemodialysis Continue hemodialysis as scheduled Nephrology on board, need outpatient hemodialysis set up --Hyperkalemia, due to declining renal function, resolved --Elevated D-dimer Ultrasound lower extremity Doppler negative Unable to obtain CTA chest due to allergies Continue apixaban 5 mg twice a day --HARPER, COPD States that she uses BiPAP at home BiPAP QHS, scheduled and as needed breathing treatment with nebulizer --Diabetes mellitus cont Lantus and lispro with Accu-Chek Continue home dose Tradjenta A1c 7.6 --Hyperlipidemia Continue statins --Hypertension Continue current medication Monitor palpitations -- Oral thrush Plced on fluconazole as nystatin did not help much DVT/GI prophylaxis: SCDs to BLE while in bed, PPI, Eliquis twice daily Disposition: TTF Brief history: This is a 64-year-old female with hypertension, diabetes, COPD, CVA, gout, hyperlipidemia who presented to the emergency department on 08/15 for a productive cough, wheezing, headache, subjective fevers scratchy throat ongoing for 4 weeks since 07/21/2020 s/p Z-Bipin and steroids who was COVID-19 positive prior to admission. Upon evaluation in the ER, had a low-grade fever, noted to be hypoxic requiring supplemental oxygen. Patient also noted to be hyperkalemic with potassium as high as 6.7, and elevated creatinine with ANGELIQUE. Patient was admitted to the hospital for further evaluation management, pulmonology, infectious disease, nephrology were consulted. Daily course: 08/31/20 - todate: pending d/c to SNF[facility] 08/30: Patient on 5 L 40% FiO2 today. Continue to wean off as tolerated. Discussed with rifle case repairer -Patient is being plan to discharge to SNF. 08/29. Remains on 15L 55% HFNC. Continue to wean as tolerated. Prone positioning PRN. 08/28. Weaned down to 15 L 55%FiO2. Using incentive spirometer. 08/27. On HFNC - 30 L 705 FiO2. She has HARPER and uses BIPAP at home. BIPAP at bedside. Complains of pain with swallowing. Ordered nystatin. 08/26. On HFNC - 30 L 705 FiO2. She has HARPER and uses BIPAP at home. Will place order for BIPAP 08/25. On high flow nasal cannula 30 L, FiO2 90%. Started empirically on Eliquis 5 mg twice daily for possible PE. She has no complaints this morning. Has some cough. Pulmonology and ID following. Remains on steroids 08/24: Patient remains on HFNC at 40L, 80% FiO2, her ddimer>43523 and her BLE Doppler US (-) for DVT. Unable to obtain a CTA chest due to allergy to contrast. We will treat Eliquis 5 mg twice daily. Wean supplemental oxygenation as tolerated. Patient will be transferred to the floor today. 08/23: Patient complains of cough, intermittent shortness of breath, received hemodialysis today and remains on high flow nasal cannula at 40 L, 80%. No acute events reported overnight. VQ scan and bilateral lower extremity Doppler ultrasound pending 08/22: High flow nasal cannula, intermittent HD, high-dose steroids 08/21: High flow nasal cannula 08/20:-High flow nasal cannula 08/19:-High flow nasal cannula, PICC line ordered, bicarb 08/18: High flow nasal cannula, transferred to ICU 08/17: Hypoxia,-nasal cannula 3: High flow nasal cannula, Vas-Cath placement for intermittent HD, COVID-19 PCR positive Subjective Date of service: 09/10/20 Principal diagnosis: Acute respiratory failure with hypoxia, ANGELIQUE superimposed onCKD, Covid pneum Interval history: Patient seen and examined. Medical records and medication list reviewed. No acute event overnight noted by the RN. Patient remains on 4-5 L 40% FiO2. Patient is tolerating diet. Discussed plan of care at bedside with patient. Objective - Exam Narrative Exam: Limited physical exam due to COVID-19 pandemic to minimize transmission of the disease and to preserve PPE. Vital reviewed and stable. GENERAL: well-developed morbidly obese female lying on bed appeared to be in no discomfort. HEENT: Normocephalic. Atraumatic. NECK: Supple. CHEST/LUNGS: breathing nonlabored. HEART/CARDIOVASCULAR: Heart rate stable on telemetry ABDOMEN: Visibly not distended SKIN: There is no rash NEURO: No focal motor deficit. Follows command. MUSCULOSKELETAL: No joint effusion EXTRIMITY: No swelling, no cyanosis or clubbing. PSYCH: Cooperative. - Constitutional Vitals: Vital Signs - 12hr 09/03/20 05:29 Temperature 98.5 F Pulse Rate 114 H Respiratory 20 Rate Blood Pressure 108/68 O2 Sat by Pulse 98 Oximetry - Labs CBC & Chem 7: 09/03/20 10:02 09/03/20 10:02 Labs: Abnormal lab results 09/02/20 09/02/20 09/03/20 Range/Units 15:50 22:13 10:02 WBC 12.6 H (4.5-11.0) K/mm3 RBC 3.19 L (3.65-5.03) M/mm3 Hgb 8.6 L (10.1-14.3) gm/dl Hct 27.2 L (30.3-42.9) % MCH 27 L (28-32) pg RDW 16.5 H (13.2-15.2) % Plt Count 106 L (140-440) K/mm3 Seg Neuts % (Manual) 87.0 H (40.0-70.0) % Lymphocytes % (Manual) 6.0 L (13.4-35.0) % Seg Neutrophils # Man 11.0 H (1.8-7.7) K/mm3 Lymphocytes # (Manual) 0.8 L (1.2-5.4) K/mm3 Eosinophils # (Manual) 0.5 H (0.0-0.4) K/mm3 BUN (7-17) mg/dL Creatinine (0.6-1.2) mg/dL Glucose (65-100) mg/dL POC Glucose 168 H 199 H (70-105) mg/dL Calcium (8.4-10.2) mg/dL 09/03/20 Range/Units 10:02 WBC (4.5-11.0) K/mm3 RBC (3.65-5.03) M/mm3 Hgb (10.1-14.3) gm/dl Hct (30.3-42.9) % MCH (28-32) pg RDW (13.2-15.2) % Plt Count (140-440) K/mm3 Seg Neuts % (Manual) (40.0-70.0) % Lymphocytes % (Manual) (13.4-35.0) % Seg Neutrophils # Man (1.8-7.7) K/mm3 Lymphocytes # (Manual) (1.2-5.4) K/mm3 Eosinophils # (Manual) (0.0-0.4) K/mm3 BUN 39 H (7-17) mg/dL Creatinine 5.6 H (0.6-1.2) mg/dL Glucose 179 H (65-100) mg/dL POC Glucose (70-105) mg/dL Calcium 7.5 L (8.4-10.2) mg/dL
[2020-09-03] MEDS: CLINDAMYCIN 300 MG CAP PO SCH (20:00)
[2020-09-03] MEDS: INSULIN GLARGINE 100 UNITS/ML SUB-Q SCH (22:57)
[2020-09-04] MEDS: BENZONATATE 100 MG CAP PO SCH ×3 (06:34→21:53)
[2020-09-04] MEDS: INSULIN LISPRO 100 UNIT/ML SUB-Q SCH ×4 (07:30→22:10)
[2020-09-04] MEDS: HYDROmorphone 1 MG/1 ML INJ IV PRN ×3 (08:30→15:35)
[2020-09-04] MEDS: CLINDAMYCIN 300 MG CAP PO SCH ×2 (09:10→13:55)
[2020-09-04] MEDS: LINAGLIPTIN 5 MG TAB PO SCH (09:37)
[2020-09-04] MEDS: ZINC SULFATE 220 MG CAP PO SCH ×2 (09:37→21:54)
[2020-09-04] MEDS: CALCITRIOL 0.25 MCG CAP PO SCH (09:37)
[2020-09-04] MEDS: ASCORBIC ACID 500 MG TAB PO SCH ×2 (09:37→21:53)
[2020-09-04] MEDS: EZETIMIBE 10 MG TAB PO SCH (09:37)
[2020-09-04] MEDS: PANTOPRAZOLE 40 MG TAB PO SCH (09:37)
[2020-09-04] MEDS: FLUCONAZOLE 200 MG TAB PO SCH (09:38)
[2020-09-04] MEDS: FOLIC ACID/VIT B COMP W-C 1 MG (RENAL CAPS) PO SCH (09:38)
[2020-09-04] MEDS: PRAVASTATIN 40 MG TAB PO SCH (09:38)
[2020-09-04] MEDS: APIXABAN 5 MG TAB PO SCH ×2 (09:38→21:52)
--- NOTE | 2020-09-04 09:53 | Progress Note ---
Assessment and Plan - Patient Problems (1) Dry eye syndrome Current Visit: Yes Status: Acute (2) Acute kidney injury superimposed on CKD Current Visit: Yes Status: Acute (3) Acute respiratory failure with hypoxia Current Visit: Yes Status: Acute (4) Bilateral pneumonia Current Visit: Yes Status: Acute (5) COVID-19 Current Visit: Yes Status: Acute (6) Hyperkalemia Current Visit: Yes Status: Acute (7) COPD (chronic obstructive pulmonary disease) Current Visit: Yes Status: Chronic (8) Hypertension Current Visit: Yes Status: Chronic Qualifiers: Hypertension type: essential hypertension Qualified Code(s): I10 - Essential (primary) hypertension (9) T2DM (type 2 diabetes mellitus) Current Visit: Yes Status: Chronic Qualifiers: Diabetes mellitus shelter insulin use: unspecified 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 insulin use status Subjective Principal diagnosis: Acute respiratory failure with hypoxia, ANGELIQUE superimposed onCKD, Covid pneum Interval history: no change awake Objective Vital Signs - 12hr 09/03/20 09/04/20 23:01 00:20 Temperature 98.3 F Pulse Rate 113 H Respiratory 22 Rate Blood Pressure 101/60 O2 Sat by Pulse 98 97 Oximetry Constitutional: alert, other (obese, ) Eyes: non-icteric ENT: oropharynx moist Neck: supple Effort: normal Ascultation: Bilateral: diminished breath sounds Cardiovascular: regular rate and rhythm (no mrg) Gastrointestinal: normoactive bowel sounds, soft, non-tender, non-distended Integumentary: normal Extremities: no cyanosis, no edema Neurologic: normal mental status, non-focal exam Psychiatric: mood appropriate, affect normal CBC and BMP: 09/03/20 10:02 09/03/20 10:02 ABG, PT/INR, D-dimer: PT/INR, D-dimer D-Dimer > 30701 ng/mlDDU (0-234) H 08/23/20 14:07 Abnormal lab findings: Abnormal Labs 08/15/20 08/15/20 08/15/20 17:01 17:01 17:01 WBC RBC Hgb Hct MCH RDW 15.8 H Plt Count Lymph % (Auto) 7.4 L Lymph # (Auto) 0.7 L [place] # (Auto) Seg Neutrophils % 85.1 H Seg Neuts % (Manual) Lymphocytes % (Manual) Seg Neutrophils # 7.9 H Seg Neutrophils # Man Lymphocytes # (Manual) Eosinophils # (Manual) D-Dimer 1750.12 H Sodium Potassium 5.1 H Chloride 97.1 L Carbon Dioxide BUN 67 H Creatinine 4.8 H Glucose 101 H POC Glucose Hemoglobin A1c Calcium Phosphorus Ferritin AST 53 H Lactate Dehydrogenase C-Reactive Protein Total Protein Albumin 3.4 L PTH Intact Ur Specific [place] Urine WBC (Auto) U Epithel Cells (Auto) Urine Creatinine Urine Total Protein Coronavirus (PCR) 08/15/20 08/15/20 08/15/20 17:01 17:01 17:01 WBC RBC Hgb Hct MCH RDW Plt Count Lymph % (Auto) Lymph # (Auto) [place] # (Auto) Seg Neutrophils % Seg Neuts % (Manual) Lymphocytes % (Manual) Seg Neutrophils # Seg Neutrophils # Man Lymphocytes # (Manual) Eosinophils # (Manual) D-Dimer Sodium Potassium Chloride Carbon Dioxide BUN Creatinine Glucose 101 H POC Glucose Hemoglobin A1c Calcium Phosphorus Ferritin 667.2 H AST Lactate Dehydrogenase 606 H 567 H C-Reactive Protein 4.60 H 6.30 H Total Protein Albumin PTH Intact Ur Specific [place] Urine WBC (Auto) U Epithel Cells (Auto) Urine Creatinine Urine Total Protein Coronavirus (PCR) 08/16/20 08/16/20 08/16/20 04:32 04:32 04:32 WBC RBC Hgb Hct MCH 27 L RDW 15.9 H Plt Count Lymph % (Auto) 12.6 L Lymph # (Auto) 0.8 L [place] # (Auto) Seg Neutrophils % 83.7 H Seg Neuts % (Manual) Lymphocytes % (Manual) Seg Neutrophils # Seg Neutrophils # Man Lymphocytes # (Manual) Eosinophils # (Manual) D-Dimer Sodium 136 L Potassium 6.7 H* D Chloride Carbon Dioxide BUN 78 H Creatinine 6.2 H Glucose 223 H POC Glucose Hemoglobin A1c 7.6 H Calcium 7.8 L Phosphorus Ferritin AST 47 H Lactate Dehydrogenase C-Reactive Protein Total Protein 5.8 L D Albumin 3.1 L PTH Intact Ur Specific [place] Urine WBC (Auto) U Epithel Cells (Auto) Urine Creatinine Urine Total Protein Coronavirus (PCR) 08/16/20 08/16/20 08/16/20 17:01 17:05 21:41 WBC RBC Hgb Hct MCH RDW Plt Count Lymph % (Auto) Lymph # (Auto) [place] # (Auto) Seg Neutrophils % Seg Neuts % (Manual) Lymphocytes % (Manual) Seg Neutrophils # Seg Neutrophils # Man Lymphocytes # (Manual) Eosinophils # (Manual) D-Dimer Sodium Potassium Chloride Carbon Dioxide BUN 93 H Creatinine 7.7 H Glucose 228 H POC Glucose 150 H 204 H Hemoglobin A1c Calcium Phosphorus Ferritin AST Lactate Dehydrogenase C-Reactive Protein Total Protein Albumin PTH Intact Ur Specific [place] Urine WBC (Auto) U Epithel Cells (Auto) Urine Creatinine Urine Total Protein Coronavirus (PCR) 08/16/20 08/17/20 08/17/20 Unknown 07:31 07:31 WBC RBC Hgb Hct MCH 27 L RDW 16.0 H Plt Count Lymph % (Auto) 4.2 L Lymph # (Auto) 0.4 L [place] # (Auto) Seg Neutrophils % 90.0 H Seg Neuts % (Manual) Lymphocytes % (Manual) Seg Neutrophils # 8.8 H Seg Neutrophils # Man Lymphocytes # (Manual) Eosinophils # (Manual) D-Dimer Sodium Potassium 5.8 H D Chloride Carbon Dioxide 20 L BUN 103 H Creatinine 9.0 H Glucose 219 H POC Glucose Hemoglobin A1c Calcium 7.9 L Phosphorus Ferritin AST Lactate Dehydrogenase C-Reactive Protein Total Protein Albumin PTH Intact Ur Specific [place] Urine WBC (Auto) U Epithel Cells (Auto) Urine Creatinine Urine Total Protein Coronavirus (PCR) Positive A 08/17/20 08/17/20 08/17/20 07:44 09:35 09:35 WBC RBC Hgb Hct MCH RDW Plt Count Lymph % (Auto) Lymph # (Auto) [place] # (Auto) Seg Neutrophils % Seg Neuts % (Manual) Lymphocytes % (Manual) Seg Neutrophils # Seg Neutrophils # Man Lymphocytes # (Manual) Eosinophils # (Manual) D-Dimer Sodium Potassium Chloride Carbon Dioxide BUN Creatinine Glucose POC Glucose 188 H Hemoglobin A1c Calcium Phosphorus 5.90 H Ferritin AST Lactate Dehydrogenase C-Reactive Protein Total Protein Albumin PTH Intact 452.6 H Ur Specific [place] Urine WBC (Auto) U Epithel Cells (Auto) Urine Creatinine Urine Total Protein Coronavirus (PCR) 08/17/20 08/17/20 08/17/20 11:23 16:38 17:45 WBC RBC Hgb Hct MCH RDW Plt Count Lymph % (Auto) Lymph # (Auto) [place] # (Auto) Seg Neutrophils % Seg Neuts % (Manual) Lymphocytes % (Manual) Seg Neutrophils # Seg Neutrophils # Man Lymphocytes # (Manual) Eosinophils # (Manual) D-Dimer Sodium Potassium Chloride Carbon Dioxide BUN Creatinine Glucose POC Glucose 205 H 212 H Hemoglobin A1c Calcium Phosphorus Ferritin AST Lactate Dehydrogenase C-Reactive Protein Total Protein Albumin PTH Intact Ur Specific [place] 1.039 H Urine WBC (Auto) 32.0 H U Epithel Cells (Auto) 44.0 H Urine Creatinine Urine Total Protein Coronavirus (PCR) 08/17/20 08/17/20 08/18/20 17:45 21:39 08:00 WBC RBC Hgb Hct MCH RDW Plt Count Lymph % (Auto) Lymph # (Auto) [place] # (Auto) Seg Neutrophils % Seg Neuts % (Manual) Lymphocytes % (Manual) Seg Neutrophils # Seg Neutrophils # Man Lymphocytes # (Manual) Eosinophils # (Manual) D-Dimer Sodium Potassium Chloride Carbon Dioxide BUN Creatinine Glucose POC Glucose 206 H 229 H Hemoglobin A1c Calcium Phosphorus Ferritin AST Lactate Dehydrogenase C-Reactive Protein Total Protein Albumin PTH Intact Ur Specific [place] Urine WBC (Auto) U Epithel Cells (Auto) Urine Creatinine 248.0 H Urine Total Protein 196 H Coronavirus (PCR) 08/18/20 08/18/20 08/18/20 08:36 08:36 11:00 WBC RBC 3.64 L Hgb 10.0 L Hct MCH RDW 15.8 H Plt Count Lymph % (Auto) 5.9 L Lymph # (Auto) 0.5 L [place] # (Auto) Seg Neutrophils % 87.3 H Seg Neuts % (Manual) Lymphocytes % (Manual) Seg Neutrophils # Seg Neutrophils # Man Lymphocytes # (Manual) Eosinophils # (Manual) D-Dimer Sodium 135 L D Potassium Chloride 95.8 L Carbon Dioxide 20 L BUN 84 H Creatinine 8.4 H Glucose 262 H POC Glucose 238 H Hemoglobin A1c Calcium 7.5 L Phosphorus Ferritin AST Lactate Dehydrogenase C-Reactive Protein Total Protein 6.1 L Albumin 2.5 L PTH Intact Ur Specific [place] Urine WBC (Auto) U Epithel Cells (Auto) Urine Creatinine Urine Total Protein Coronavirus (PCR) 08/18/20 08/18/20 08/19/20 16:14 21:52 04:23 WBC RBC 3.53 L Hgb 9.5 L Hct 30.0 L MCH 27 L RDW 15.6 H Plt Count Lymph % (Auto) Lymph # (Auto) [place] # (Auto) Seg Neutrophils % Seg Neuts % (Manual) 84.0 H Lymphocytes % (Manual) 9.0 L Seg Neutrophils # Seg Neutrophils # Man Lymphocytes # (Manual) 0.5 L Eosinophils # (Manual) D-Dimer Sodium Potassium Chloride Carbon Dioxide BUN Creatinine Glucose POC Glucose 248 H 303 H Hemoglobin A1c Calcium Phosphorus Ferritin AST Lactate Dehydrogenase C-Reactive Protein Total Protein Albumin PTH Intact Ur Specific [place] Urine WBC (Auto) U Epithel Cells (Auto) Urine Creatinine Urine Total Protein Coronavirus (PCR) 08/19/20 08/19/20 08/19/20 04:23 06:44 11:53 WBC RBC Hgb Hct MCH RDW Plt Count Lymph % (Auto) Lymph # (Auto) [place] # (Auto) Seg Neutrophils % Seg Neuts % (Manual) Lymphocytes % (Manual) Seg Neutrophils # Seg Neutrophils # Man Lymphocytes # (Manual) Eosinophils # (Manual) D-Dimer Sodium Potassium Chloride 97.2 L Carbon Dioxide BUN 86 H Creatinine 9.2 H Glucose 271 H POC Glucose 213 H 266 H Hemoglobin A1c Calcium 7.5 L Phosphorus Ferritin AST Lactate Dehydrogenase C-Reactive Protein Total Protein 5.8 L Albumin 2.5 L PTH Intact Ur Specific [place] Urine WBC (Auto) U Epithel Cells (Auto) Urine Creatinine Urine Total Protein Coronavirus (PCR) 08/19/20 08/19/20 08/19/20 16:58 16:58 16:58 WBC RBC Hgb Hct MCH RDW Plt Count Lymph % (Auto) Lymph # (Auto) [place] # (Auto) Seg Neutrophils % Seg Neuts % (Manual) Lymphocytes % (Manual) Seg Neutrophils # Seg Neutrophils # Man Lymphocytes # (Manual) Eosinophils # (Manual) D-Dimer > 13981 H Sodium Potassium Chloride Carbon Dioxide BUN Creatinine Glucose POC Glucose Hemoglobin A1c Calcium Phosphorus Ferritin 1043.0 H AST Lactate Dehydrogenase 721 H C-Reactive Protein 3.00 H Total Protein Albumin PTH Intact Ur Specific [place] Urine WBC (Auto) U Epithel Cells (Auto) Urine Creatinine Urine Total Protein Coronavirus (PCR) 08/19/20 08/19/20 08/20/20 17:18 22:53 06:38 WBC RBC Hgb Hct MCH RDW Plt Count Lymph % (Auto) Lymph # (Auto) [place] # (Auto) Seg Neutrophils % Seg Neuts % (Manual) Lymphocytes % (Manual) Seg Neutrophils # Seg Neutrophils # Man Lymphocytes # (Manual) Eosinophils # (Manual) D-Dimer Sodium Potassium Chloride Carbon Dioxide BUN Creatinine Glucose POC Glucose 223 H 273 H 268 H Hemoglobin A1c Calcium Phosphorus Ferritin AST Lactate Dehydrogenase C-Reactive Protein Total Protein Albumin PTH Intact Ur Specific [place] Urine WBC (Auto) U [place]ithel Cells (Auto) Urine Creatinine Urine Total Protein Coronavirus (PCR) 08/20/20 08/20/20 08/20/20 08:21 11:47 15:46 WBC RBC Hgb Hct MCH RDW Plt Count Lymph % (Auto) Lymph # (Auto) [place] # (Auto) Seg Neutrophils % Seg Neuts % (Manual) Lymphocytes % (Manual) Seg Neutrophils # Seg Neutrophils # Man Lymphocytes # (Manual) Eosinophils # (Manual) D-Dimer Sodium Potassium Chloride Carbon Dioxide BUN Creatinine Glucose POC Glucose 264 H 288 H 262 H Hemoglobin A1c Calcium Phosphorus Ferritin AST Lactate Dehydrogenase C-Reactive Protein Total Protein Albumin PTH Intact Ur Specific [place] Urine WBC (Auto) U [place] Cells (Auto) Urine Creatinine Urine Total Protein Coronavirus (PCR) 08/20/20 08/21/20 08/21/20 21:33 07:46 11:56 WBC RBC Hgb Hct MCH RDW Plt Count Lymph % (Auto) Lymph # (Auto) [place] # (Auto) Seg Neutrophils % Seg Neuts % (Manual) Lymphocytes % (Manual) Seg Neutrophils # Seg Neutrophils # Man Lymphocytes # (Manual) Eosinophils # (Manual) D-Dimer Sodium Potassium Chloride Carbon Dioxide BUN Creatinine Glucose POC Glucose 274 H 249 H 227 H Hemoglobin A1c Calcium Phosphorus Ferritin AST Lactate Dehydrogenase C-Reactive Protein Total Protein Albumin PTH Intact Ur Specific [place] Urine WBC (Auto) U Epithel Cells (Auto) Urine Creatinine Urine Total Protein Coronavirus (PCR) 08/21/20 08/21/20 08/22/20 17:19 21:34 08:48 WBC RBC Hgb Hct MCH RDW Plt Count Lymph % (Auto) Lymph # (Auto) [place] # (Auto) Seg Neutrophils % Seg Neuts % (Manual) Lymphocytes % (Manual) Seg Neutrophils # Seg Neutrophils # Man Lymphocytes # (Manual) Eosinophils # (Manual) D-Dimer Sodium Potassium Chloride Carbon Dioxide BUN Creatinine Glucose POC Glucose 318 H 286 H 257 H Hemoglobin A1c Calcium Phosphorus Ferritin AST Lactate Dehydrogenase C-Reactive Protein Total Protein Albumin PTH Intact Ur Specific [place] Urine WBC (Auto) U [place]ithel Cells (Auto) Urine Creatinine Urine Total Protein Coronavirus (PCR) 08/22/20 08/22/20 08/22/20 12:34 17:41 21:22 WBC RBC Hgb Hct MCH RDW Plt Count Lymph % (Auto) Lymph # (Auto) [place] # (Auto) Seg Neutrophils % Seg Neuts % (Manual) Lymphocytes % (Manual) Seg Neutrophils # Seg Neutrophils # Man Lymphocytes # (Manual) Eosinophils # (Manual) D-Dimer Sodium Potassium Chloride Carbon Dioxide BUN Creatinine Glucose POC Glucose 324 H 283 H 308 H Hemoglobin A1c Calcium Phosphorus Ferritin AST Lactate Dehydrogenase C-Reactive Protein Total Protein Albumin PTH Intact Ur Specific [place] Urine WBC (Auto) U Epithel Cells (Auto) Urine Creatinine Urine Total Protein Coronavirus (PCR) 08/23/20 08/23/20 08/23/20 05:24 05:47 05:47 WBC 13.7 H RBC Hgb 9.9 L Hct MCH 27 L RDW Plt Count Lymph % (Auto) Lymph # (Auto) [place] # (Auto) Seg Neutrophils % Seg Neuts % (Manual) Lymphocytes % (Manual) Seg Neutrophils # Seg Neutrophils # Man Lymphocytes # (Manual) Eosinophils # (Manual) D-Dimer Sodium 133 L Potassium Chloride 90.4 L Carbon Dioxide BUN 103 H Creatinine 9.5 H Glucose 346 H POC Glucose 297 H Hemoglobin A1c Calcium 7.9 L Phosphorus Ferritin AST Lactate Dehydrogenase C-Reactive Protein Total Protein Albumin PTH Intact Ur Specific [place] Urine WBC (Auto) U [place]it[place] Cells (Auto) Urine Creatinine Urine Total Protein Coronavirus (PCR) 08/23/20 08/23/20 08/23/20 07:34 10:58 14:07 WBC RBC Hgb Hct MCH RDW Plt Count Lymph % (Auto) Lymph # (Auto) [place] # (Auto) Seg Neutrophils % Seg Neuts % (Manual) Lymphocytes % (Manual) Seg Neutrophils # Seg Neutrophils # Man Lymphocytes # (Manual) Eosinophils # (Manual) D-Dimer > 88740 H Sodium Potassium Chloride Carbon Dioxide BUN Creatinine Glucose POC Glucose 276 H 334 H Hemoglobin A1c Calcium Phosphorus Ferritin AST Lactate Dehydrogenase C-Reactive Protein Total Protein Albumin PTH Intact Ur Specific [place] Urine WBC (Auto) U [place] Cells (Auto) Urine Creatinine Urine Total Protein Coronavirus (PCR) 08/23/20 08/23/20 08/23/20 14:07 14:07 15:54 WBC RBC Hgb Hct MCH RDW Plt Count Lymph % (Auto) Lymph # (Auto) [place] # (Auto) Seg Neutrophils % Seg Neuts % (Manual) Lymphocytes % (Manual) Seg Neutrophils # Seg Neutrophils # Man Lymphocytes # (Manual) Eosinophils # (Manual) D-Dimer Sodium Potassium Chloride Carbon Dioxide BUN Creatinine Glucose POC Glucose 248 H Hemoglobin A1c Calcium Phosphorus Ferritin 1053.0 H AST Lactate Dehydrogenase 994 H C-Reactive Protein Total Protein Albumin PTH Intact Ur Specific [place] Urine WBC (Auto) U [place]it[place] Cells (Auto) Urine Creatinine Urine Total Protein Coronavirus (PCR) 08/23/20 08/24/20 08/24/20 21:18 06:06 06:06 WBC 17.9 H RBC Hgb 10.0 L Hct MCH 26 L RDW Plt Count Lymph % (Auto) Lymph # (Auto) [place] # (Auto) Seg Neutrophils % Seg Neuts % (Manual) Lymphocytes % (Manual) Seg Neutrophils # Seg Neutrophils # Man Lymphocytes # (Manual) Eosinophils # (Manual) D-Dimer Sodium Potassium 5.2 H Chloride 94.8 L Carbon Dioxide BUN 79 H Creatinine 7.9 H Glucose 230 H POC Glucose 206 H Hemoglobin A1c Calcium 8.3 L Phosphorus Ferritin AST Lactate Dehydrogenase C-Reactive Protein Total Protein Albumin PTH Intact Ur Specific [place] Urine WBC (Auto) U [place] Cells (Auto) Urine Creatinine Urine Total Protein Coronavirus (PCR) 08/24/20 08/24/20 08/24/20 07:44 11:31 15:51 WBC RBC Hgb Hct MCH RDW Plt Count Lymph % (Auto) Lymph # (Auto) [place] # (Auto) Seg Neutrophils % Seg Neuts % (Manual) Lymphocytes % (Manual) Seg Neutrophils # Seg Neutrophils # Man Lymphocytes # (Manual) Eosinophils # (Manual) D-Dimer Sodium Potassium Chloride Carbon Dioxide BUN Creatinine Glucose POC Glucose 199 H 307 H 325 H Hemoglobin A1c Calcium Phosphorus Ferritin AST Lactate Dehydrogenase C-Reactive Protein Total Protein Albumin PTH Intact Ur Specific [place] Urine WBC (Auto) U [place]it[place] Cells (Auto) Urine Creatinine Urine Total Protein Coronavirus (PCR) 08/24/20 08/25/20 08/25/20 21:43 08:08 08:14 WBC RBC Hgb Hct MCH RDW Plt Count Lymph % (Auto) Lymph # (Auto) [place] # (Auto) Seg Neutrophils % Seg Neuts % (Manual) Lymphocytes % (Manual) Seg Neutrophils # Seg Neutrophils # Man Lymphocytes # (Manual) Eosinophils # (Manual) D-Dimer Sodium Potassium Chloride Carbon Dioxide BUN 65 H Creatinine 6.6 H Glucose 278 H POC Glucose 227 H 253 H Hemoglobin A1c Calcium Phosphorus Ferritin AST Lactate Dehydrogenase C-Reactive Protein Total Protein Albumin PTH Intact Ur Specific [place] Urine WBC (Auto) U [place]ithel Cells (Auto) Urine Creatinine Urine Total Protein Coronavirus (PCR) 08/25/20 08/25/20 08/25/20 08:14 10:53 16:18 WBC 19.0 H RBC Hgb Hct MCH 27 L RDW 15.8 H Plt Count Lymph % (Auto) Lymph # (Auto) [place] # (Auto) Seg Neutrophils % Seg Neuts % (Manual) Lymphocytes % (Manual) Seg Neutrophils # Seg Neutrophils # Man Lymphocytes # (Manual) Eosinophils # (Manual) D-Dimer Sodium Potassium Chloride Carbon Dioxide BUN Creatinine Glucose POC Glucose 332 H 329 H Hemoglobin A1c Calcium Phosphorus Ferritin AST Lactate Dehydrogenase C-Reactive Protein Total Protein Albumin PTH Intact Ur Specific [place] Urine WBC (Auto) U [place]ithel Cells (Auto) Urine Creatinine Urine Total Protein Coronavirus (PCR) 08/25/20 08/26/20 08/26/20 21:52 01:10 08:21 WBC RBC Hgb Hct MCH RDW Plt Count Lymph % (Auto) Lymph # (Auto) [place] # (Auto) Seg Neutrophils % Seg Neuts % (Manual) Lymphocytes % (Manual) Seg Neutrophils # Seg Neutrophils # Man Lymphocytes # (Manual) Eosinophils # (Manual) D-Dimer Sodium Potassium Chloride Carbon Dioxide BUN Creatinine Glucose POC Glucose 311 H 426 H 182 H Hemoglobin A1c Calcium Phosphorus Ferritin AST Lactate Dehydrogenase C-Reactive Protein Total Protein Albumin PTH Intact Ur Specific [place] Urine WBC (Auto) U [place]ithel Cells (Auto) Urine Creatinine Urine Total Protein Coronavirus (PCR) 08/26/20 08/26/20 08/26/20 10:38 11:05 16:36 WBC RBC Hgb Hct MCH RDW Plt Count Lymph % (Auto) Lymph # (Auto) [place] # (Auto) Seg Neutrophils % Seg Neuts % (Manual) Lymphocytes % (Manual) Seg Neutrophils # Seg Neutrophils # Man Lymphocytes # (Manual) Eosinophils # (Manual) D-Dimer Sodium Potassium Chloride 95.5 L Carbon Dioxide BUN 95 H Creatinine 8.9 H Glucose 216 H POC Glucose 191 H 173 H Hemoglobin A1c Calcium Phosphorus Ferritin AST Lactate Dehydrogenase C-Reactive Protein Total Protein Albumin PTH Intact Ur Specific [place] Urine WBC (Auto) U [place]it[place] Cells (Auto) Urine Creatinine Urine Total Protein Coronavirus (PCR) 08/26/20 08/27/20 08/27/20 22:22 06:13 07:36 WBC RBC Hgb Hct MCH RDW Plt Count Lymph % (Auto) Lymph # (Auto) [place] # (Auto) Seg Neutrophils % Seg Neuts % (Manual) Lymphocytes % (Manual) Seg Neutrophils # Seg Neutrophils # Man Lymphocytes # (Manual) Eosinophils # (Manual) D-Dimer Sodium Potassium Chloride Carbon Dioxide BUN 61 H Creatinine 6.9 H Glucose 52 L POC Glucose 160 H 38 L Hemoglobin A1c Calcium Phosphorus Ferritin AST Lactate Dehydrogenase C-Reactive Protein Total Protein Albumin PTH Intact Ur Specific [place] Urine WBC (Auto) U [place]ithel Cells (Auto) Urine Creatinine Urine Total Protein Coronavirus (PCR) 08/27/20 08/27/20 08/27/20 08:19 10:56 16:07 WBC RBC Hgb Hct MCH RDW Plt Count Lymph % (Auto) Lymph # (Auto) [place] # (Auto) Seg Neutrophils % Seg Neuts % (Manual) Lymphocytes % (Manual) Seg Neutrophils # Seg Neutrophils # Man Lymphocytes # (Manual) Eosinophils # (Manual) D-Dimer Sodium Potassium Chloride Carbon Dioxide BUN Creatinine Glucose POC Glucose 61 L 147 H 230 H Hemoglobin A1c Calcium Phosphorus Ferritin AST Lactate Dehydrogenase C-Reactive Protein Total Protein Albumin PTH Intact Ur Specific [place] Urine WBC (Auto) U Epithel Cells (Auto) Urine Creatinine Urine Total Protein Coronavirus (PCR) 08/27/20 08/28/20 08/28/20 21:31 07:23 07:28 WBC RBC Hgb Hct MCH RDW Plt Count Lymph % (Auto) Lymph # (Auto) [place] # (Auto) Seg Neutrophils % Seg Neuts % (Manual) Lymphocytes % (Manual) Seg Neutrophils # Seg Neutrophils # Man Lymphocytes # (Manual) Eosinophils # (Manual) D-Dimer Sodium 136 L Potassium Chloride 96.4 L Carbon Dioxide BUN 47 H Creatinine 5.8 H Glucose 314 H POC Glucose 314 H 292 H Hemoglobin A1c Calcium 7.8 L Phosphorus Ferritin AST Lactate Dehydrogenase C-Reactive Protein Total Protein Albumin PTH Intact Ur Specific [place] Urine WBC (Auto) U Epithel Cells (Auto) Urine Creatinine Urine Total Protein Coronavirus (PCR) 08/28/20 08/28/20 08/28/20 11:10 16:28 21:44 WBC RBC Hgb Hct MCH RDW Plt Count Lymph % (Auto) Lymph # (Auto) [place] # (Auto) Seg Neutrophils % Seg Neuts % (Manual) Lymphocytes % (Manual) Seg Neutrophils # Seg Neutrophils # Man Lymphocytes # (Manual) Eosinophils # (Manual) D-Dimer Sodium Potassium Chloride Carbon Dioxide BUN Creatinine Glucose POC Glucose 287 H 268 H 282 H Hemoglobin A1c Calcium Phosphorus Ferritin AST Lactate Dehydrogenase C-Reactive Protein Total Protein Albumin PTH Intact Ur Specific [place] Urine WBC (Auto) U Epithel Cells (Auto) Urine Creatinine Urine Total Protein Coronavirus (PCR) 08/29/20 08/29/20 08/29/20 06:42 08:18 11:14 WBC RBC Hgb Hct MCH RDW Plt Count Lymph % (Auto) Lymph # (Auto) [place] # (Auto) Seg Neutrophils % Seg Neuts % (Manual) Lymphocytes % (Manual) Seg Neutrophils # Seg Neutrophils # Man Lymphocytes # (Manual) Eosinophils # (Manual) D-Dimer Sodium 135 L Potassium Chloride 95.9 L Carbon Dioxide BUN 72 H Creatinine 8.0 H Glucose 236 H POC Glucose 172 H 206 H Hemoglobin A1c Calcium 7.9 L Phosphorus Ferritin AST Lactate Dehydrogenase C-Reactive Protein Total Protein Albumin PTH Intact Ur Specific [place] Urine WBC (Auto) U Epithel Cells (Auto) Urine Creatinine Urine Total Protein Coronavirus (PCR) 08/29/20 08/30/20 08/30/20 16:23 00:02 07:36 WBC RBC Hgb Hct MCH RDW Plt Count Lymph % (Auto) Lymph # (Auto) [place] # (Auto) Seg Neutrophils % Seg Neuts % (Manual) Lymphocytes % (Manual) Seg Neutrophils # Seg Neutrophils # Man Lymphocytes # (Manual) Eosinophils # (Manual) D-Dimer Sodium Potassium Chloride Carbon Dioxide BUN Creatinine Glucose POC Glucose 242 H 220 H 149 H Hemoglobin A1c Calcium Phosphorus Ferritin AST Lactate Dehydrogenase C-Reactive Protein Total Protein Albumin PTH Intact Ur Specific [place] Urine WBC (Auto) U Epithel Cells (Auto) Urine Creatinine Urine Total Protein Coronavirus (PCR) 08/30/20 08/30/20 08/30/20 10:54 15:18 21:47 WBC RBC Hgb Hct MCH RDW Plt Count Lymph % (Auto) Lymph # (Auto) [place] # (Auto) Seg Neutrophils % Seg Neuts % (Manual) Lymphocytes % (Manual) Seg Neutrophils # Seg Neutrophils # Man Lymphocytes # (Manual) Eosinophils # (Manual) D-Dimer Sodium Potassium Chloride Carbon Dioxide BUN Creatinine Glucose POC Glucose 170 H 216 H 331 H Hemoglobin A1c Calcium Phosphorus Ferritin AST Lactate Dehydrogenase C-Reactive Protein Total Protein Albumin PTH Intact Ur Specific [place] Urine WBC (Auto) U Epithel Cells (Auto) Urine Creatinine Urine Total Protein Coronavirus (PCR) 08/31/20 08/31/20 08/31/20 07:09 07:09 11:45 WBC 14.7 H RBC 3.31 L Hgb 9.0 L Hct 28.2 L MCH 27 L RDW 15.9 H Plt Count Lymph % (Auto) 5.4 L Lymph # (Auto) 0.8 L [place] # (Auto) 0.9 H Seg Neutrophils % 87.3 H Seg Neuts % (Manual) Lymphocytes % (Manual) Seg Neutrophils # 12.8 H Seg Neutrophils # Man Lymphocytes # (Manual) Eosinophils # (Manual) D-Dimer Sodium Potassium Chloride 95.3 L Carbon Dioxide BUN 71 H Creatinine 8.2 H Glucose 123 H POC Glucose 154 H Hemoglobin A1c Calcium 7.7 L Phosphorus Ferritin AST Lactate Dehydrogenase C-Reactive Protein Total Protein Albumin PTH Intact Ur Specific [place] Urine WBC (Auto) U Epithel Cells (Auto) Urine Creatinine Urine Total Protein Coronavirus (PCR) 08/31/20 08/31/20 09/01/20 16:58 21:41 07:57 WBC RBC Hgb Hct MCH RDW Plt Count Lymph % (Auto) Lymph # (Auto) [place] # (Auto) Seg Neutrophils % Seg Neuts % (Manual) Lymphocytes % (Manual) Seg Neutrophils # Seg Neutrophils # Man Lymphocytes # (Manual) Eosinophils # (Manual) D-Dimer Sodium Potassium Chloride Carbon Dioxide BUN Creatinine Glucose POC Glucose 279 H 237 H 127 H Hemoglobin A1c Calcium Phosphorus Ferritin AST Lactate Dehydrogenase C-Reactive Protein Total Protein Albumin PTH Intact Ur Specific [place] Urine WBC (Auto) U Epithel Cells (Auto) Urine Creatinine Urine Total Protein Coronavirus (PCR) 09/01/20 09/01/20 09/01/20 11:14 16:00 21:16 WBC RBC Hgb Hct MCH RDW Plt Count Lymph % (Auto) Lymph # (Auto) [place] # (Auto) Seg Neutrophils % Seg Neuts % (Manual) Lymphocytes % (Manual) Seg Neutrophils # Seg Neutrophils # Man Lymphocytes # (Manual) Eosinophils # (Manual) D-Dimer Sodium Potassium Chloride Carbon Dioxide BUN Creatinine Glucose POC Glucose 166 H 108 H 148 H Hemoglobin A1c Calcium Phosphorus Ferritin AST Lactate Dehydrogenase C-Reactive Protein Total Protein Albumin PTH Intact Ur Specific [place] Urine WBC (Auto) U Epithel Cells (Auto) Urine Creatinine Urine Total Protein Coronavirus (PCR) 09/02/20 09/02/20 09/02/20 07:29 11:15 15:50 WBC RBC Hgb Hct MCH RDW Plt Count Lymph % (Auto) Lymph # (Auto) [place] # (Auto) Seg Neutrophils % Seg Neuts % (Manual) Lymphocytes % (Manual) Seg Neutrophils # Seg Neutrophils # Man Lymphocytes # (Manual) Eosinophils # (Manual) D-Dimer Sodium Potassium Chloride Carbon Dioxide BUN Creatinine Glucose POC Glucose 52 L 152 H 168 H Hemoglobin A1c Calcium Phosphorus Ferritin AST Lactate Dehydrogenase C-Reactive Protein Total Protein Albumin PTH Intact Ur Specific [place] Urine WBC (Auto) U Epithel Cells (Auto) Urine Creatinine Urine Total Protein Coronavirus (PCR) 09/02/20 09/03/20 09/03/20 22:13 10:02 10:02 WBC 12.6 H RBC 3.19 L Hgb 8.6 L Hct 27.2 L MCH 27 L RDW 16.5 H Plt Count 106 L Lymph % (Auto) Lymph # (Auto) [place] # (Auto) Seg Neutrophils % Seg Neuts % (Manual) 87.0 H Lymphocytes % (Manual) 6.0 L Seg Neutrophils # Seg Neutrophils # Man 11.0 H Lymphocytes # (Manual) 0.8 L Eosinophils # (Manual) 0.5 H D-Dimer Sodium Potassium Chloride Carbon Dioxide BUN 39 H Creatinine 5.6 H Glucose 179 H POC Glucose 199 H Hemoglobin A1c Calcium 7.5 L Phosphorus Ferritin AST Lactate Dehydrogenase C-Reactive Protein Total Protein Albumin PTH Intact Ur Specific [place] Urine WBC (Auto) U Epithel Cells (Auto) Urine Creatinine Urine Total Protein Coronavirus (PCR) 09/03/20 09/03/20 09/03/20 12:07 16:14 21:33 WBC RBC Hgb Hct MCH RDW Plt Count Lymph % (Auto) Lymph # (Auto) [place] # (Auto) Seg Neutrophils % Seg Neuts % (Manual) Lymphocytes % (Manual) Seg Neutrophils # Seg Neutrophils # Man Lymphocytes # (Manual) Eosinophils # (Manual) D-Dimer Sodium Potassium Chloride Carbon Dioxide BUN Creatinine Glucose POC Glucose 130 H 125 H 146 H Hemoglobin A1c Calcium Phosphorus Ferritin AST Lactate Dehydrogenase C-Reactive Protein Total Protein Albumin PTH Intact Ur Specific [place] Urine WBC (Auto) U Epithel Cells (Auto) Urine Creatinine Urine Total Protein Coronavirus (PCR)
[2020-09-04] MEDS: CARBOXYMETHYLCELLULOSE OU PRN (10:11)
[2020-09-04] MEDS: ARFORMOTEROL 15 MCG/2 ML NEBU IH SCH ×2 (11:31→21:48)
--- NOTE | 2020-09-04 12:05 | Progress Note ---
Assessment and Plan Impression: #Acute kidney injury: She was initially on daily dialysis and was then transitioned to intermittent dialysis. #Has underlying chronic kidney disease her baseline creatinine is around 1.7-[address] Rivers's office #Respiratory failure resulting from Covid 19 pneumonia + fluid overload- being followed by pulmonary service. UF with HD as tolerated. Limit fluid intake to 1L/d #Covid 19 viral pneumonia with ARDS like picture, patient has multiorgan failure Plan: #HD MWF #she will need ongoing renal replacement therapy as tolerated for now. Monitor labs and I/O daily. # Keep MAP> 65 # Renally dose medications # Renal diet outpatient hd placement arranged, ok to dc from renal standpoint, Subjective Date of service: 09/04/20 Principal diagnosis: Acute respiratory failure with hypoxia, ANGELIQUE superimposed onCKD, Covid pneum Interval history: Subjective Date of service: 08/28/20 Principal diagnosis: Acute respiratory failure with hypoxia, ANGELIQUE superimposed onCKD, Covid pneum Interval history: Patient was seen for her renal issues Nursing, interdisciplinary and consult notes were reviewed Vitals, input and output, medications and labs were reviewed Objective - Exam Narrative Exam: deferred for preservation of ppe Objective - Vital Signs Vital signs: Vital Signs - 12hr 09/04/20 09/04/20 00:20 10:00 Temperature 98.3 F Pulse Rate 113 H Respiratory 22 24 Rate Blood Pressure 101/60 O2 Sat by Pulse 97 Oximetry - Lab 09/03/20 10:02 09/03/20 10:02 Most recent lab results Calcium 7.5 mg/dL (8.4-10.2) L 09/03/20 10:02 Phosphorus 5.90 mg/dL (2.5-4.5) H 08/17/20 09:35 Urine Creatinine 248.0 mg/dL (0.1-20.0) H 08/17/20 17:45 Urine Total Protein 196 mg/dL (5-11.8) H 08/17/20 17:45 Medications & Allergies - Medications Allergies/Adverse Reactions: Allergies gabapentin [From Neurontin] Allergy (Verified 08/15/20 17:25) Unknown rosuvastatin calcium [From Crestor] Allergy (Verified 08/15/20 17:25) Rash fluticasone propionate [From Advair Diskus] Adverse Reaction (Verified 08/15/20 17:25) Headache salmeterol xinafoate [From Advair Diskus] Adverse Reaction (Verified 08/15/20 17:25) Headache IV DYE Allergy (Uncoded 08/24/20 10:28) Itching Home Medications: Home Medications Medication Instructions Recorded Confirmed Last Taken Type Cyanocobalamin (Vitamin B-12) 1,000 mcg IJ QMONTH 08/15/20 08/15/20 Unknown History [Physicians Ez Use B-12] Ergocalciferol [Vitamin D2] 1 cap PO QWEEK 08/15/20 08/15/20 Unknown History Ezetimibe/Simvastatin 1 each PO DAILY 08/15/20 08/15/20 Unknown History [Ezetimibe-Simvastatin 10-20 mg] Famotidine [Pepcid] 40 mg PO DAILY 08/15/20 08/15/20 Unknown History Linagliptin [Tradjenta] 5 mg PO QDAY 08/15/20 08/15/20 Unknown History Omeprazole 40 mg PO DAILY 08/15/20 08/15/20 Unknown History allopurinoL [Zyloprim] 200 mg PO DAILY 08/15/20 08/15/20 Unknown History Spiriva 2.5 mcg INHALATION DAILY 08/17/20 08/17/20 Unknown History Symbicort 160-4.5 Mcg Inhaler 160 mcg INHALATION BID 08/17/20 08/17/20 Unknown History ALBUTEROL NEB's [Proventil 0.083% 2.5 mg IH Q6HRT PRN nebu 08/31/20 Unknown Rx NEBS] Apixaban [Eliquis] 5 mg PO Q12HR 7 Days 08/31/20 Unknown Rx Ascorbic Acid [Vitamin C] 1,000 mg PO BID tablet 08/31/20 Unknown Rx Benzonatate [Tessalon Perles] 100 mg PO Q8HR capsule 08/31/20 Unknown Rx Insulin Glargine [Lantus VIAL] 35 units SUB-Q BID units 08/31/20 Unknown Rx Lispro Insulin [HumaLOG] 0 unit SUB-Q ACHS units 08/31/20 Unknown Rx Nystatin [Nystatin SUSP] 400,000 unit PO TID 5 Days 08/31/20 Unknown Rx Zinc Sulfate 220 mg PO BID capsule 08/31/20 Unknown Rx calcitrioL [Rocaltrol] 0.25 mcg PO QDAY capsule 08/31/20 Unknown Rx Fluconazole [Diflucan TAB] 200 mg PO QDAY #7 tablet 09/02/20 Unknown Rx Active Medications: Generic Name Dose Route Start Last Admin Trade Name Freq PRN Reason Stop Dose Admin Acetaminophen 650 mg 08/15/20 22:16 08/19/20 01:17 Acetaminophen 325 Mg Tab PO 650 mg Q4H PRN Administration Pain MILD(1-3)/Fever >100.5/TELLO Hydrocodone Bitart/Acetaminophen 1 each 08/15/20 22:06 09/02/20 22:43 Hydrocodone/Acetaminophen 5-325 Mg Tab PO 1 each Q6HR PRN Administration Pain, Moderate (4-6) Albuterol 2.5 mg 08/27/20 00:38 Albuterol 2.5 Mg/3 Ml Nebu IH 09/26/20 00:36 Q6HRT PRN Shortness Of Breath Apixaban 5 mg 08/24/20 11:00 09/04/20 09:38 Apixaban 5 Mg Tab PO 5 mg Q12HR SYLVAIN Administration Protocol Arformoterol Tartrate 15 mcg 09/04/20 10:30 09/04/20 11:31 Arformoterol 15 Mcg/2 Ml Nebu IH 15 mcg Q12HRT SYLVAIN Administration Artificial Tears 1 drops 09/03/20 09:57 09/04/20 10:11 Refresh (Carboxymethylcellulose) Drops 0.4 Ml OU 1 drops PRN PRN Administration Dry Eye(s) Ascorbic Acid 1,000 mg 08/15/20 23:00 09/04/20 09:37 Ascorbic Acid 500 Mg Tab PO 1,000 mg BID SYLVAIN Administration Benzonatate 100 mg 08/25/20 14:00 09/04/20 06:34 Benzonatate 100 Mg Cap PO 100 mg Q8HR SYLVAIN Administration Calcitriol 0.25 mcg 08/18/20 10:00 09/04/20 09:37 Calcitriol 0.25 Mcg Cap PO 0.25 mcg QDAY SYLVAIN Administration Clindamycin HCl 300 mg 09/03/20 20:00 09/04/20 09:10 Clindamycin 300 Mg Cap PO 09/07/20 23:59 300 mg TID SYLVAIN Administration Protocol Dextrose 25 ml 08/27/20 08:08 Dextrose 50% In Water (25gm) 50 Ml Syringe IV Q30MIN PRN HYPOGLYCEMIA Protocol Ezetimibe 10 mg 08/16/20 10:00 09/04/20 09:37 Ezetimibe 10 Mg Tab PO 10 mg DAILY SYLVAIN Administration Fluconazole 200 mg 09/02/20 14:00 09/04/20 09:38 Fluconazole 200 Mg Tab PO 200 mg QDAY SYLVAIN Administration Protocol Hydromorphone HCl 0.5 mg 08/15/20 22:16 09/04/20 08:30 Hydromorphone 1 Mg/1 Ml Inj IV 0.5 mg Q3H PRN Administration Pain , Severe (7-10) Sodium Chloride 100 mls @ 999 mls/hr 08/24/20 08:20 09/03/20 10:10 Nacl 0.9% IV 999 mls/hr SARAI PRN Administration Hypotension Insulin Glargine 20 units 09/02/20 22:00 09/03/20 22:57 Insulin Glargine 100 Units/Ml SUB-Q Not Given QHS [facility] Insulin Human Lispro 0 unit 08/18/20 13:23 09/04/20 07:30 Insulin Lispro 100 Unit/Ml SUB-Q Not Given ACHS [facility] Protocol Linagliptin 5 mg 08/16/20 10:00 09/04/20 09:37 Linagliptin 5 Mg Tab PO 5 mg QDAY [facility] Administration Metoclopramide HCl 5 mg 08/15/20 22:37 Metoclopramide 10 Mg/2 Ml Inj IV Q6H PRN Nausea And Vomiting Multivit/Ca Carb/B Cmplx/FA/Prenat 1 cap 08/18/20 10:00 09/04/20 09:38 Folic Acid/Vit B Comp W-C 1 Mg (Renal Caps) PO 1 cap DAILY SYLVAIN Administration Ondansetron HCl 4 mg 08/15/20 22:16 Ondansetron 4 Mg/2 Ml Inj IV Q8H PRN Nausea And Vomiting Oxycodone/Acetaminophen 1 tab 08/15/20 22:16 08/18/20 09:58 Oxycodone /Acetaminophen 5-325mg Tab PO 1 tab Q6H PRN Administration Pain, Moderate (4-6) Pantoprazole Sodium 40 mg 08/16/20 10:00 09/04/20 09:37 Pantoprazole 40 Mg Tab PO 40 mg DAILY SYLVAIN Administration Pravastatin Sodium 40 mg 08/16/20 10:00 09/04/20 09:38 Pravastatin 40 Mg Tab PO 40 mg DAILY SYLVAIN Administration Pseudoephedrine/Acetam/Chlorphenir 10 ml 08/18/20 10:30 08/23/20 17:21 Guaifenesin/Codeine 100-10mg Oral Liqd 5 Ml PO 10 ml Q4H PRN Administration Cough Sodium Chloride 10 ml 08/15/20 23:00 09/04/20 09:38 Sodium Chloride 0.9% 10 Ml Flush Syringe IV 10 ml BID SYLVAIN Administration Sodium Chloride 10 ml 08/15/20 22:16 Sodium Chloride 0.9% 10 Ml Flush Syringe IV PRN PRN LINE FLUSH Zinc Sulfate 220 mg 08/15/20 23:00 09/04/20 09:37 Zinc Sulfate 220 Mg Cap PO 220 mg BID SYLVAIN Administration
--- NOTE | 2020-09-04 13:04 | Progress Note ---
Assessment and Plan --COVID-19 pneumonia Status post azithromycin and ceftriaxone Not a candidate for remdesivir due to impaired renal function s/p dexamethasone for total 10 days Incentive spirometer Prone positioning as tolerated Pulmonology following ID on board --Acute hypoxic respiratory failure Secondary to Covid pneumonia Continue oxygen supplementation-on 2-4 L FiO2 need home O2 on discharge --ANGELIQUE on CKD now on hemodialysis Likely ATN, started on hemodialysis Continue hemodialysis as scheduled Nephrology on board, need outpatient hemodialysis set up --Hyperkalemia, due to declining renal function, resolved --Elevated D-dimer Ultrasound lower extremity Doppler negative Unable to obtain CTA chest due to allergies Continue apixaban 5 mg twice a day --HARPER, COPD States that she uses BiPAP at home BiPAP QHS, scheduled and as needed breathing treatment with nebulizer --Diabetes mellitus cont Lantus and lispro with Accu-Chek Continue home dose Tradjenta A1c 7.6 --Hyperlipidemia Continue statins --Hypertension Continue current medication Monitor palpitations -- Oral thrush Placed on fluconazole for a week as nystatin did not help much DVT/GI prophylaxis: SCDs to BLE while in bed, PPI, Eliquis twice daily Disposition: TTF Brief history: This is a 64-year-old female with hypertension, diabetes, COPD, CVA, gout, hyperlipidemia who presented to the emergency department on 08/15 for a productive cough, wheezing, headache, subjective fevers scratchy throat ongoing for 4 weeks since 07/21/2020 s/p Z-Bipin and steroids who was COVID-19 positive prior to admission. Upon evaluation in the ER, had a low-grade fever, noted to be hypoxic requiring supplemental oxygen. Patient also noted to be hyperkalemic wit h potassium as high as 6.7, and elevated creatinine with ANGELIQUE. Patient was admitted to the hospital for further evaluation management, pulmonology, infectious disease, nephrology were consulted. Daily course: 08/31/20 - todate: pending d/c to SNF/[facility]. wean off o2 as tolerated 08/30: Patient on 5 L 40% FiO2 today. Continue to wean off as tolerated. Discussed with briefcase sewer -Patient is being plan to discharge to SNF. 08/29. Remains on 15L 55% HFNC. Continue to wean as tolerated. Prone positioning PRN. 08/28. Weaned down to 15 L 55%FiO2. Using incentive spirometer. 08/27. On HFNC - 30 L 705 FiO2. She has HARPER and uses BIPAP at home. BIPAP at bedside. Complains of pain with swallowing. Ordered nystatin. 08/26. On HFNC - 30 L 705 FiO2. She has HARPER and uses BIPAP at home. Will place order for BIPAP 08/25. On high flow nasal cannula 30 L, FiO2 90%. Started empirically on Eliquis 5 mg twice daily for possible PE. She has no complaints this morning. Has some cough. Pulmonology and ID following. Remains on steroids 08/24: Patient remains on HFNC at 40L, 80% FiO2, her ddimer>[id number] and her BLE Doppler US (-) for DVT. Unable to obtain a CTA chest due to allergy to contrast. We will treat Eliquis 5 mg twice daily. Wean supplemental oxygenation as tolerated. Patient will be transferred to the floor today. 08/23: Patient complains of cough, intermittent shortness of breath, received hemodialysis today and remains on high flow nasal cannula at 40 L, 80%. No acu te events reported overnight. VQ scan and bilateral lower extremity Doppler ultrasound pending 08/22: High flow nasal cannula, intermittent HD, high-dose steroids 08/21: High flow nasal cannula 08/20:-High flow nasal cannula 08/19:-High flow nasal cannula, PICC line ordered, bicarb 08/18: High flow nasal cannula, transferred to ICU 08/17: Hypoxia,-nasal cannula 08/16: High flow nasal cannula, Vas-Cath placement for intermittent HD, COVID-19 PCR positive Subjective Date of service: 09/04/20 Principal diagnosis: Acute respiratory failure with hypoxia, ANGELIQUE superimposed onCKD, Covid pneum Interval history: Patient seen and examined. Medical records and medication list reviewed. No acute event overnight noted by the RN. Patient is tolerating diet. Discussed plan of care at bedside with patient. Objective - Exam Narrative Exam: Limited physical exam due to COVID-19 pandemic to minimize transmission of the disease and to preserve PPE. Vital reviewed and stable. GENERAL: well-developed morbidly obese female lying on bed appeared to be in no discomfort. HEENT: Normocephalic. Atraumatic. NECK: Supple. CHEST/LUNGS: breathing nonlabored. HEART/CARDIOVASCULAR: Heart rate stable on telemetry ABDOMEN: Visibly not distended SKIN: There is no rash NEURO: No focal motor deficit. Follows command. MUSCULOSKELETAL: No joint effusion EXTRIMITY: No swelling, no cyanosis or clubbing. PSYCH: Cooperative. - Constitutional Vitals: Vital Signs - 12hr 09/04/20 10:00 Respiratory 24 Rate - Labs CBC & Chem 7: 09/03/20 10:02 09/03/20 10:02 Labs: Abnormal lab results 09/03/20 09/03/20 09/03/20 Range/Units 12:07 16:14 21:33 POC Glucose 130 H 125 H 146 H (70-105) mg/dL 09/04/20 09/04/20 Range/Units 07:31 12:13 POC Glucose 122 H 145 H (70-105) mg/dL
[2020-09-04] MEDS: BUDESONIDE 0.5 MG/2 ML NEBU IH SCH (21:48)
[2020-09-04] MEDS: ACYCLOVIR 200 MG CAP PO SCH (21:54)
[2020-09-04] MEDS ORDERED: SYMBICORT INHALATION SCH (22:00)
[2020-09-04] MEDS: INSULIN GLARGINE 100 UNITS/ML SUB-Q SCH (22:10)
[2020-09-05] MEDS: BENZONATATE 100 MG CAP PO SCH ×2 (06:22→14:56)
[2020-09-05] MEDS: INSULIN LISPRO 100 UNIT/ML SUB-Q SCH ×3 (07:30→16:30)
[2020-09-05] MEDS: ARFORMOTEROL 15 MCG/2 ML NEBU IH SCH (08:06)
[2020-09-05] MEDS: BUDESONIDE 0.5 MG/2 ML NEBU IH SCH (08:06)
--- NOTE | 2020-09-05 08:14 | Progress Note ---
Assessment and Plan 64 y/o female with acute respiratory failure thought secondary to COVID, found to be positive 09/05/20: stable pulm status. Follow up with Markus at discharge. Will sign off. 09/02/20: No objection to discharge. Follow up with Markus 09/01/20: Suggest walk test and arrangement of home O2 if needed. Has finished steroid therapy. Resume home COPD regimen. No objection to discharge pulmonary [place]. Follow up with Markus 14 days post discharge. Will see as needed. 08/31/20: Continue to wean FiO2 as tolerated. HD per renal. There is a discharge order in computer for today. If discharged, patient can follow up with Dr. Aparicio in 14 days from discharge. 08/30/20: Continue to wean FiO2 as tolerated. Hd per renal. Will continue to follow up. 08/28/20: Continue to wean FiO2 as tolerated. HD per renal. Proning if able. Prognosis remains guarded but promising given reduction in oxygen 08/27/20: Continue to wean FiO2 as tolerated. HD per renal. Prone as tolerated. Guarded prognosis. 08/25/20: Empirically started on anticoags, monitor renal function and coags and hgb. LAst day of steroids, however may need to extend out if oxygen requirement doesn't improve with continued HD and volume removal. Encourage to prone or some variation of this. Guarded prognosis. 08/24/20: Markers remain elevated. IMS concerned about clot. dopplers negative so they have cleared with renal for CTA. Oxygenation not worse and I am not sure how aggressive weaning has been. Will attempt to do better today. HD per renal. Continue high dose steroids. Guarded prognosis. 08/23/20: Agree with HD again today. Wean FiO2 for sats >88% and patient comfort. Continue steroids at current dosing. Lantus for sugars. Will observe on HD again today. If anything, and a bed is needed, can transfer to step down. 08/22/20: HD per renal. Patient has questions about why she is requiring HD, please address with her if possible. Hopeful she will have several HD sessions back to back as I feel a lot of her most recent decline is from volume. COntinue High dose steroids but will extend out to 10 days. Increase lantus to help with sugars. Can likely be transferred to step down or back to the floor. 08/19/20: Ordered PICC line for use during HD if patient requires vasopressors. Most likely increase in oxygen secondary to volume from lack of appropriate HD secondary to hypotension. Will give a couple amps of bicarb to see if this will help with blood pressure and can wills off pressor use. Continue steroids. Agre e with ID on increasing the dose. Guarded prognosis 08/18/20: Prone as tolerated during day and sleep prone at night. Continue supplemental O2. Steroids for 10 days. Hold on nebs. Needs RT consult for documentation of oxygen therapy and requirements. 08/17/20: Found to be positive. Same recs as yesterday. Likely not a candidate for remdesivir given renal function. No nebulizer therapy, only inhaler therapy if and when needed. Continue supplemental O2 and proning is mcknight. Guarded prognosis given renal failure. 1. Follow up covid testing 2. Ok with current steroids 3. If patient brought in home inhalers, please allow pharmacy to verify and use them, no neb treatments 4. Prone during the day and and sleep prone at night as tolerated. Guarded prognosis. Subjective Date of service: 09/05/20 Principal diagnosis: Acute respiratory failure with hypoxia, ANGELIQUE superimposed onCKD, Covid pneum Interval history: Down to 1 liter NC with good sats. Pulm status stable. Objective Vital Signs - 12hr 09/04/20 09/04/20 09/04/20 21:51 21:52 22:02 Temperature 98.4 F Pulse Rate 115 H Pulse Rate [ 114 H Anterior Bilateral Throughout] Respiratory 20 Rate Respiratory 20 Rate [Anterior Bilateral Throughout] Blood Pressure 113/58 O2 Sat by Pulse 97 97 Oximetry 09/05/20 05:33 Temperature 98.6 F Pulse Rate 117 H Pulse Rate [ Anterior Bilateral Throughout] Respiratory 20 Rate Respiratory Rate [Anterior Bilateral Throughout] Blood Pressure 108/72 O2 Sat by Pulse 97 Oximetry Constitutional: alert, other (obese, ) Eyes: non-icteric ENT: oropharynx moist Neck: supple Effort: normal Ascultation: Bilateral: diminished breath sounds Cardiovascular: regular rate and rhythm (no mrg) Gastrointestinal: normoactive bowel sounds, soft, non-tender, non-distended Integumentary: normal Extremities: no cyanosis, no edema Neurologic: normal mental status, non-focal exam Psychiatric: mood appropriate, affect normal CBC and BMP: 09/03/20 10:02 09/03/20 10:02 ABG, PT/INR, D-dimer: PT/INR, D-dimer D-Dimer > 69145 ng/mlDDU (0-234) H 08/23/20 14:07 Abnormal lab findings: Abnormal Labs 08/15/20 08/15/20 08/15/20 17:01 17:01 17:01 WBC RBC Hgb Hct MCH RDW 15.8 H Plt Count Lymph % (Auto) 7.4 L Lymph # (Auto) 0.7 L [place]ink[place] # (Auto) Seg Neutrophils % 85.1 H Seg Neuts % (Manual) Lymphocytes % (Manual) Seg Neutrophils # 7.9 H Seg Neutrophils # Man Lymphocytes # (Manual) Eosinophils # (Manual) D-Dimer 1750.12 H Sodium Potassium 5.1 H Chloride 97.1 L Carbon Dioxide BUN 67 H Creatinine 4.8 H Glucose 101 H POC Glucose Hemoglobin A1c Calcium Phosphorus Ferritin AST 53 H Lactate Dehydrogenase C-Reactive Protein Total Protein Albumin 3.4 L PTH Intact Ur Specific [place] Urine WBC (Auto) U Epithel Cells (Auto) Urine Creatinine Urine Total Protein Coronavirus (PCR) 08/15/20 08/15/20 08/15/20 17:01 17:01 17:01 WBC RBC Hgb Hct MCH RDW Plt Count Lymph % (Auto) Lymph # (Auto) [place] # (Auto) Seg Neutrophils % Seg Neuts % (Manual) Lymphocytes % (Manual) Seg Neutrophils # Seg Neutrophils # Man Lymphocytes # (Manual) Eosinophils # (Manual) D-Dimer Sodium Potassium Chloride Carbon Dioxide BUN Creatinine Glucose 101 H POC Glucose Hemoglobin A1c Calcium Phosphorus Ferritin 667.2 H AST Lactate Dehydrogenase 606 H 567 H C-Reactive Protein 4.60 H 6.30 H Total Protein Albumin PTH Intact Ur Specific [place] Urine WBC (Auto) U Epithel Cells (Auto) Urine Creatinine Urine Total Protein Coronavirus (PCR) 08/16/20 08/16/20 08/16/20 04:32 04:32 04:32 WBC RBC Hgb Hct MCH 27 L RDW 15.9 H Plt Count Lymph % (Auto) 12.6 L Lymph # (Auto) 0.8 L [place] # (Auto) Seg Neutrophils % 83.7 H Seg Neuts % (Manual) Lymphocytes % (Manual) Seg Neutrophils # Seg Neutrophils # Man Lymphocytes # (Manual) Eosinophils # (Manual) D-Dimer Sodium 136 L Potassium 6.7 H* D Chloride Carbon Dioxide BUN 78 H Creatinine 6.2 H Glucose 223 H POC Glucose Hemoglobin A1c 7.6 H Calcium 7.8 L Phosphorus Ferritin AST 47 H Lactate Dehydrogenase C-Reactive Protein Total Protein 5.8 L D Albumin 3.1 L PTH Intact Ur Specific [place] Urine WBC (Auto) U Epithel Cells (Auto) Urine Creatinine Urine Total Protein Coronavirus (PCR) 08/16/20 08/16/20 08/16/20 17:01 17:05 21:41 WBC RBC Hgb Hct MCH RDW Plt Count Lymph % (Auto) Lymph # (Auto) [place] # (Auto) Seg Neutrophils % Seg Neuts % (Manual) Lymphocytes % (Manual) Seg Neutrophils # Seg Neutrophils # Man Lymphocytes # (Manual) Eosinophils # (Manual) D-Dimer Sodium Potassium Chloride Carbon Dioxide BUN 93 H Creatinine 7.7 H Glucose 228 H POC Glucose 150 H 204 H Hemoglobin A1c Calcium Phosphorus Ferritin AST Lactate Dehydrogenase C-Reactive Protein Total Protein Albumin PTH Intact Ur Specific [place] Urine WBC (Auto) U Epithel Cells (Auto) Urine Creatinine Urine Total Protein Coronavirus (PCR) 08/16/20 08/17/20 08/17/20 Unknown 07:31 07:31 WBC RBC Hgb Hct MCH 27 L RDW 16.0 H Plt Count Lymph % (Auto) 4.2 L Lymph # (Auto) 0.4 L [place] # (Auto) Seg Neutrophils % 90.0 H Seg Neuts % (Manual) Lymphocytes % (Manual) Seg Neutrophils # 8.8 H Seg Neutrophils # Man Lymphocytes # (Manual) Eosinophils # (Manual) D-Dimer Sodium Potassium 5.8 H D Chloride Carbon Dioxide 20 L BUN 103 H Creatinine 9.0 H Glucose 219 H POC Glucose Hemoglobin A1c Calcium 7.9 L Phosphorus Ferritin AST Lactate Dehydrogenase C-Reactive Protein Total Protein Albumin PTH Intact Ur Specific [place] Urine WBC (Auto) U Epithel Cells (Auto) Urine Creatinine Urine Total Protein Coronavirus (PCR) Positive A 08/17/20 08/17/20 08/17/20 07:44 09:35 09:35 WBC RBC Hgb Hct MCH RDW Plt Count Lymph % (Auto) Lymph # (Auto) [place] # (Auto) Seg Neutrophils % Seg Neuts % (Manual) Lymphocytes % (Manual) Seg Neutrophils # Seg Neutrophils # Man Lymphocytes # (Manual) Eosinophils # (Manual) D-Dimer Sodium Potassium Chloride Carbon Dioxide BUN Creatinine Glucose POC Glucose 188 H Hemoglobin A1c Calcium Phosphorus 5.90 H Ferritin AST Lactate Dehydrogenase C-Reactive Protein Total Protein Albumin PTH Intact 452.6 H Ur Specific [place] Urine WBC (Auto) U Epithel Cells (Auto) Urine Creatinine Urine Total Protein Coronavirus (PCR) 08/17/20 08/17/20 08/17/20 11:23 16:38 17:45 WBC RBC Hgb Hct MCH RDW Plt Count Lymph % (Auto) Lymph # (Auto) [place] # (Auto) Seg Neutrophils % Seg Neuts % (Manual) Lymphocytes % (Manual) Seg Neutrophils # Seg Neutrophils # Man Lymphocytes # (Manual) Eosinophils # (Manual) D-Dimer Sodium Potassium Chloride Carbon Dioxide BUN Creatinine Glucose POC Glucose 205 H 212 H Hemoglobin A1c Calcium Phosphorus Ferritin AST Lactate Dehydrogenase C-Reactive Protein Total Protein Albumin PTH Intact Ur Specific [place] 1.039 H Urine WBC (Auto) 32.0 H U Epithel Cells (Auto) 44.0 H Urine Creatinine Urine Total Protein Coronavirus (PCR) 08/17/20 08/17/20 08/18/20 17:45 21:39 08:00 WBC RBC Hgb Hct MCH RDW Plt Count Lymph % (Auto) Lymph # (Auto) [place] # (Auto) Seg Neutrophils % Seg Neuts % (Manual) Lymphocytes % (Manual) Seg Neutrophils # Seg Neutrophils # Man Lymphocytes # (Manual) Eosinophils # (Manual) D-Dimer Sodium Potassium Chloride Carbon Dioxide BUN Creatinine Glucose POC Glucose 206 H 229 H Hemoglobin A1c Calcium Phosphorus Ferritin AST Lactate Dehydrogenase C-Reactive Protein Total Protein Albumin PTH Intact Ur Specific [place] Urine WBC (Auto) U Epithel Cells (Auto) Urine Creatinine 248.0 H Urine Total Protein 196 H Coronavirus (PCR) 08/18/20 08/18/20 08/18/20 08:36 08:36 11:00 WBC RBC 3.64 L Hgb 10.0 L Hct MCH RDW 15.8 H Plt Count Lymph % (Auto) 5.9 L Lymph # (Auto) 0.5 L [place] # (Auto) Seg Neutrophils % 87.3 H Seg Neuts % (Manual) Lymphocytes % (Manual) Seg Neutrophils # Seg Neutrophils # Man Lymphocytes # (Manual) Eosinophils # (Manual) D-Dimer Sodium 135 L D Potassium Chloride 95.8 L Carbon Dioxide 20 L BUN 84 H Creatinine 8.4 H Glucose 262 H POC Glucose 238 H Hemoglobin A1c Calcium 7.5 L Phosphorus Ferritin AST Lactate Dehydrogenase C-Reactive Protein Total Protein 6.1 L Albumin 2.5 L PTH Intact Ur Specific [place] Urine WBC (Auto) U Epithel Cells (Auto) Urine Creatinine Urine Total Protein Coronavirus (PCR) 08/18/20 08/18/20 08/19/20 16:14 21:52 04:23 WBC RBC 3.53 L Hgb 9.5 L Hct 30.0 L MCH 27 L RDW 15.6 H Plt Count Lymph % (Auto) Lymph # (Auto) [place] # (Auto) Seg Neutrophils % Seg Neuts % (Manual) 84.0 H Lymphocytes % (Manual) 9.0 L Seg Neutrophils # Seg Neutrophils # Man Lymphocytes # (Manual) 0.5 L Eosinophils # (Manual) D-Dimer Sodium Potassium Chloride Carbon Dioxide BUN Creatinine Glucose POC Glucose 248 H 303 H Hemoglobin A1c Calcium Phosphorus Ferritin AST Lactate Dehydrogenase C-Reactive Protein Total Protein Albumin PTH Intact Ur Specific [place] Urine WBC (Auto) U Epithel Cells (Auto) Urine Creatinine Urine Total Protein Coronavirus (PCR) 08/19/20 08/19/20 08/19/20 04:23 06:44 11:53 WBC RBC Hgb Hct MCH RDW Plt Count Lymph % (Auto) Lymph # (Auto) [place] # (Auto) Seg Neutrophils % Seg Neuts % (Manual) Lymphocytes % (Manual) Seg Neutrophils # Seg Neutrophils # Man Lymphocytes # (Manual) Eosinophils # (Manual) D-Dimer Sodium Potassium Chloride 97.2 L Carbon Dioxide BUN 86 H Creatinine 9.2 H Glucose 271 H POC Glucose 213 H 266 H Hemoglobin A1c Calcium 7.5 L Phosphorus Ferritin AST Lactate Dehydrogenase C-Reactive Protein Total Protein 5.8 L Albumin 2.5 L PTH Intact Ur Specific [place] Urine WBC (Auto) U Epithel Cells (Auto) Urine Creatinine Urine Total Protein Coronavirus (PCR) 08/19/20 08/19/20 08/19/20 16:58 16:58 16:58 WBC RBC Hgb Hct MCH RDW Plt Count Lymph % (Auto) Lymph # (Auto) [place] # (Auto) Seg Neutrophils % Seg Neuts % (Manual) Lymphocytes % (Manual) Seg Neutrophils # Seg Neutrophils # Man Lymphocytes # (Manual) Eosinophils # (Manual) D-Dimer > 17867 H Sodium Potassium Chloride Carbon Dioxide BUN Creatinine Glucose POC Glucose Hemoglobin A1c Calcium Phosphorus Ferritin 1043.0 H AST Lactate Dehydrogenase 721 H C-Reactive Protein 3.00 H Total Protein Albumin PTH Intact Ur Specific [place] Urine WBC (Auto) U Epithel Cells (Auto) Urine Creatinine Urine Total Protein Coronavirus (PCR) 08/19/20 08/19/20 08/20/20 17:18 22:53 06:38 WBC RBC Hgb Hct MCH RDW Plt Count Lymph % (Auto) Lymph # (Auto) [place] # (Auto) Seg Neutrophils % Seg Neuts % (Manual) Lymphocytes % (Manual) Seg Neutrophils # Seg Neutrophils # Man Lymphocytes # (Manual) Eosinophils # (Manual) D-Dimer Sodium Potassium Chloride Carbon Dioxide BUN Creatinine Glucose POC Glucose 223 H 273 H 268 H Hemoglobin A1c Calcium Phosphorus Ferritin AST Lactate Dehydrogenase C-Reactive Protein Total Protein Albumin PTH Intact Ur Specific [place] Urine WBC (Auto) U Epithel Cells (Auto) Urine Creatinine Urine Total Protein Coronavirus (PCR) 08/20/20 08/20/20 08/20/20 08:21 11:47 15:46 WBC RBC Hgb Hct MCH RDW Plt Count Lymph % (Auto) Lymph # (Auto) [place] # (Auto) Seg Neutrophils % Seg Neuts % (Manual) Lymphocytes % (Manual) Seg Neutrophils # Seg Neutrophils # Man Lymphocytes # (Manual) Eosinophils # (Manual) D-Dimer Sodium Potassium Chloride Carbon Dioxide BUN Creatinine Glucose POC Glucose 264 H 288 H 262 H Hemoglobin A1c Calcium Phosphorus Ferritin AST Lactate Dehydrogenase C-Reactive Protein Total Protein Albumin PTH Intact Ur Specific [place] Urine WBC (Auto) U Epithel Cells (Auto) Urine Creatinine Urine Total Protein Coronavirus (PCR) 08/20/20 08/21/20 08/21/20 21:33 07:46 11:56 WBC RBC Hgb Hct MCH RDW Plt Count Lymph % (Auto) Lymph # (Auto) [place] # (Auto) Seg Neutrophils % Seg Neuts % (Manual) Lymphocytes % (Manual) Seg Neutrophils # Seg Neutrophils # Man Lymphocytes # (Manual) Eosinophils # (Manual) D-Dimer Sodium Potassium Chloride Carbon Dioxide BUN Creatinine Glucose POC Glucose 274 H 249 H 227 H Hemoglobin A1c Calcium Phosphorus Ferritin AST Lactate Dehydrogenase C-Reactive Protein Total Protein Albumin PTH Intact Ur Specific [place] Urine WBC (Auto) U Epithel Cells (Auto) Urine Creatinine Urine Total Protein Coronavirus (PCR) 08/21/20 08/21/20 08/22/20 17:19 21:34 08:48 WBC RBC Hgb Hct MCH RDW Plt Count Lymph % (Auto) Lymph # (Auto) [place] # (Auto) Seg Neutrophils % Seg Neuts % (Manual) Lymphocytes % (Manual) Seg Neutrophils # Seg Neutrophils # Man Lymphocytes # (Manual) Eosinophils # (Manual) D-Dimer Sodium Potassium Chloride Carbon Dioxide BUN Creatinine Glucose POC Glucose 318 H 286 H 257 H Hemoglobin A1c Calcium Phosphorus Ferritin AST Lactate Dehydrogenase C-Reactive Protein Total Protein Albumin PTH Intact Ur Specific [place] Urine WBC (Auto) U Epithel Cells (Auto) Urine Creatinine Urine Total Protein Coronavirus (PCR) 08/22/20 08/22/20 08/22/20 12:34 17:41 21:22 WBC RBC Hgb Hct MCH RDW Plt Count Lymph % (Auto) Lymph # (Auto) [place] # (Auto) Seg Neutrophils % Seg Neuts % (Manual) Lymphocytes % (Manual) Seg Neutrophils # Seg Neutrophils # Man Lymphocytes # (Manual) Eosinophils # (Manual) D-Dimer Sodium Potassium Chloride Carbon Dioxide BUN Creatinine Glucose POC Glucose 324 H 283 H 308 H Hemoglobin A1c Calcium Phosphorus Ferritin AST Lactate Dehydrogenase C-Reactive Protein Total Protein Albumin PTH Intact Ur Specific [place] Urine WBC (Auto) U Epithel Cells (Auto) Urine Creatinine Urine Total Protein Coronavirus (PCR) 08/23/20 08/23/20 08/23/20 05:24 05:47 05:47 WBC 13.7 H RBC Hgb 9.9 L Hct MCH 27 L RDW Plt Count Lymph % (Auto) Lymph # (Auto) [place] # (Auto) Seg Neutrophils % Seg Neuts % (Manual) Lymphocytes % (Manual) Seg Neutrophils # Seg Neutrophils # Man Lymphocytes # (Manual) Eosinophils # (Manual) D-Dimer Sodium 133 L Potassium Chloride 90.4 L Carbon Dioxide BUN 103 H Creatinine 9.5 H Glucose 346 H POC Glucose 297 H Hemoglobin A1c Calcium 7.9 L Phosphorus Ferritin AST Lactate Dehydrogenase C-Reactive Protein Total Protein Albumin PTH Intact Ur Specific [place] Urine WBC (Auto) U Epithel Cells (Auto) Urine Creatinine Urine Total Protein Coronavirus (PCR) 08/23/20 08/23/20 08/23/20 07:34 10:58 14:07 WBC RBC Hgb Hct MCH RDW Plt Count Lymph % (Auto) Lymph # (Auto) [place] # (Auto) Seg Neutrophils % Seg Neuts % (Manual) Lymphocytes % (Manual) Seg Neutrophils # Seg Neutrophils # Man Lymphocytes # (Manual) Eosinophils # (Manual) D-Dimer > 00026 H Sodium Potassium Chloride Carbon Dioxide BUN Creatinine Glucose POC Glucose 276 H 334 H Hemoglobin A1c Calcium Phosphorus Ferritin AST Lactate Dehydrogenase C-Reactive Protein Total Protein Albumin PTH Intact Ur Specific [place] Urine WBC (Auto) U Epithel Cells (Auto) Urine Creatinine Urine Total Protein Coronavirus (PCR) 08/23/20 08/23/20 08/23/20 14:07 14:07 15:54 WBC RBC Hgb Hct MCH RDW Plt Count Lymph % (Auto) Lymph # (Auto) [place] # (Auto) Seg Neutrophils % Seg Neuts % (Manual) Lymphocytes % (Manual) Seg Neutrophils # Seg Neutrophils # Man Lymphocytes # (Manual) Eosinophils # (Manual) D-Dimer Sodium Potassium Chloride Carbon Dioxide BUN Creatinine Glucose POC Glucose 248 H Hemoglobin A1c Calcium Phosphorus Ferritin 1053.0 H AST Lactate Dehydrogenase 994 H C-Reactive Protein Total Protein Albumin PTH Intact Ur Specific [place] Urine WBC (Auto) U Epithel Cells (Auto) Urine Creatinine Urine Total Protein Coronavirus (PCR) 08/23/20 08/24/20 08/24/20 21:18 06:06 06:06 WBC 17.9 H RBC Hgb 10.0 L Hct MCH 26 L RDW Plt Count Lymph % (Auto) Lymph # (Auto) [place] # (Auto) Seg Neutrophils % Seg Neuts % (Manual) Lymphocytes % (Manual) Seg Neutrophils # Seg Neutrophils # Man Lymphocytes # (Manual) Eosinophils # (Manual) D-Dimer Sodium Potassium 5.2 H Chloride 94.8 L Carbon Dioxide BUN 79 H Creatinine 7.9 H Glucose 230 H POC Glucose 206 H Hemoglobin A1c Calcium 8.3 L Phosphorus Ferritin AST Lactate Dehydrogenase C-Reactive Protein Total Protein Albumin PTH Intact Ur Specific [place] Urine WBC (Auto) U Epithel Cells (Auto) Urine Creatinine Urine Total Protein Coronavirus (PCR) 08/24/20 08/24/20 08/24/20 07:44 11:31 15:51 WBC RBC Hgb Hct MCH RDW Plt Count Lymph % (Auto) Lymph # (Auto) [place] # (Auto) Seg Neutrophils % Seg Neuts % (Manual) Lymphocytes % (Manual) Seg Neutrophils # Seg Neutrophils # Man Lymphocytes # (Manual) Eosinophils # (Manual) D-Dimer Sodium Potassium Chloride Carbon Dioxide BUN Creatinine Glucose POC Glucose 199 H 307 H 325 H Hemoglobin A1c Calcium Phosphorus Ferritin AST Lactate Dehydrogenase C-Reactive Protein Total Protein Albumin PTH Intact Ur Specific [place] Urine WBC (Auto) U Epithel Cells (Auto) Urine Creatinine Urine Total Protein Coronavirus (PCR) 08/24/20 08/25/20 08/25/20 21:43 08:08 08:14 WBC RBC Hgb Hct MCH RDW Plt Count Lymph % (Auto) Lymph # (Auto) [place] # (Auto) Seg Neutrophils % Seg Neuts % (Manual) Lymphocytes % (Manual) Seg Neutrophils # Seg Neutrophils # Man Lymphocytes # (Manual) Eosinophils # (Manual) D-Dimer Sodium Potassium Chloride Carbon Dioxide BUN 65 H Creatinine 6.6 H Glucose 278 H POC Glucose 227 H 253 H Hemoglobin A1c Calcium Phosphorus Ferritin AST Lactate Dehydrogenase C-Reactive Protein Total Protein Albumin PTH Intact Ur Specific [place] Urine WBC (Auto) U Epithel Cells (Auto) Urine Creatinine Urine Total Protein Coronavirus (PCR) 08/25/20 08/25/20 08/25/20 08:14 10:53 16:18 WBC 19.0 H RBC Hgb Hct MCH 27 L RDW 15.8 H Plt Count Lymph % (Auto) Lymph # (Auto) [place] # (Auto) Seg Neutrophils % Seg Neuts % (Manual) Lymphocytes % (Manual) Seg Neutrophils # Seg Neutrophils # Man Lymphocytes # (Manual) Eosinophils # (Manual) D-Dimer Sodium Potassium Chloride Carbon Dioxide BUN Creatinine Glucose POC Glucose 332 H 329 H Hemoglobin A1c Calcium Phosphorus Ferritin AST Lactate Dehydrogenase C-Reactive Protein Total Protein Albumin PTH Intact Ur Specific [place] Urine WBC (Auto) U Epithel Cells (Auto) Urine Creatinine Urine Total Protein Coronavirus (PCR) 08/25/20 08/26/20 08/26/20 21:52 01:10 08:21 WBC RBC Hgb Hct MCH RDW Plt Count Lymph % (Auto) Lymph # (Auto) [place] # (Auto) Seg Neutrophils % Seg Neuts % (Manual) Lymphocytes % (Manual) Seg Neutrophils # Seg Neutrophils # Man Lymphocytes # (Manual) Eosinophils # (Manual) D-Dimer Sodium Potassium Chloride Carbon Dioxide BUN Creatinine Glucose POC Glucose 311 H 426 H 182 H Hemoglobin A1c Calcium Phosphorus Ferritin AST Lactate Dehydrogenase C-Reactive Protein Total Protein Albumin PTH Intact Ur Specific [place] Urine WBC (Auto) U Epithel Cells (Auto) Urine Creatinine Urine Total Protein Coronavirus (PCR) 08/26/20 08/26/20 08/26/20 10:38 11:05 16:36 WBC RBC Hgb Hct MCH RDW Plt Count Lymph % (Auto) Lymph # (Auto) [place] # (Auto) Seg Neutrophils % Seg Neuts % (Manual) Lymphocytes % (Manual) Seg Neutrophils # Seg Neutrophils # Man Lymphocytes # (Manual) Eosinophils # (Manual) D-Dimer Sodium Potassium Chloride 95.5 L Carbon Dioxide BUN 95 H Creatinine 8.9 H Glucose 216 H POC Glucose 191 H 173 H Hemoglobin A1c Calcium Phosphorus Ferritin AST Lactate Dehydrogenase C-Reactive Protein Total Protein Albumin PTH Intact Ur Specific [place] Urine WBC (Auto) U Epithel Cells (Auto) Urine Creatinine Urine Total Protein Coronavirus (PCR) 08/26/20 08/27/20 08/27/20 22:22 06:13 07:36 WBC RBC Hgb Hct MCH RDW Plt Count Lymph % (Auto) Lymph # (Auto) [place] # (Auto) Seg Neutrophils % Seg Neuts % (Manual) Lymphocytes % (Manual) Seg Neutrophils # Seg Neutrophils # Man Lymphocytes # (Manual) Eosinophils # (Manual) D-Dimer Sodium Potassium Chloride Carbon Dioxide BUN 61 H Creatinine 6.9 H Glucose 52 L POC Glucose 160 H 38 L Hemoglobin A1c Calcium Phosphorus Ferritin AST Lactate Dehydrogenase C-Reactive Protein Total Protein Albumin PTH Intact Ur Specific [place] Urine WBC (Auto) U Epithel Cells (Auto) Urine Creatinine Urine Total Protein Coronavirus (PCR) 08/27/20 08/27/20 08/27/20 08:19 10:56 16:07 WBC RBC Hgb Hct MCH RDW Plt Count Lymph % (Auto) Lymph # (Auto) [place] # (Auto) Seg Neutrophils % Seg Neuts % (Manual) Lymphocytes % (Manual) Seg Neutrophils # Seg Neutrophils # Man Lymphocytes # (Manual) Eosinophils # (Manual) D-Dimer Sodium Potassium Chloride Carbon Dioxide BUN Creatinine Glucose POC Glucose 61 L 147 H 230 H Hemoglobin A1c Calcium Phosphorus Ferritin AST Lactate Dehydrogenase C-Reactive Protein Total Protein Albumin PTH Intact Ur Specific [place] Urine WBC (Auto) U Epithel Cells (Auto) Urine Creatinine Urine Total Protein Coronavirus (PCR) 08/27/20 08/28/20 08/28/20 21:31 07:23 07:28 WBC RBC Hgb Hct MCH RDW Plt Count Lymph % (Auto) Lymph # (Auto) [place] # (Auto) Seg Neutrophils % Seg Neuts % (Manual) Lymphocytes % (Manual) Seg Neutrophils # Seg Neutrophils # Man Lymphocytes # (Manual) Eosinophils # (Manual) D-Dimer Sodium 136 L Potassium Chloride 96.4 L Carbon Dioxide BUN 47 H Creatinine 5.8 H Glucose 314 H POC Glucose 314 H 292 H Hemoglobin A1c Calcium 7.8 L Phosphorus Ferritin AST Lactate Dehydrogenase C-Reactive Protein Total Protein Albumin PTH Intact Ur Specific [place] Urine WBC (Auto) U Epithel Cells (Auto) Urine Creatinine Urine Total Protein Coronavirus (PCR) 08/28/20 08/28/20 08/28/20 11:10 16:28 21:44 WBC RBC Hgb Hct MCH RDW Plt Count Lymph % (Auto) Lymph # (Auto) [place] # (Auto) Seg Neutrophils % Seg Neuts % (Manual) Lymphocytes % (Manual) Seg Neutrophils # Seg Neutrophils # Man Lymphocytes # (Manual) Eosinophils # (Manual) D-Dimer Sodium Potassium Chloride Carbon Dioxide BUN Creatinine Glucose POC Glucose 287 H 268 H 282 H Hemoglobin A1c Calcium Phosphorus Ferritin AST Lactate Dehydrogenase C-Reactive Protein Total Protein Albumin PTH Intact Ur Specific [place] Urine WBC (Auto) U Epithel Cells (Auto) Urine Creatinine Urine Total Protein Coronavirus (PCR) 08/29/20 08/29/20 08/29/20 06:42 08:18 11:14 WBC RBC Hgb Hct MCH RDW Plt Count Lymph % (Auto) Lymph # (Auto) [place] # (Auto) Seg Neutrophils % Seg Neuts % (Manual) Lymphocytes % (Manual) Seg Neutrophils # Seg Neutrophils # Man Lymphocytes # (Manual) Eosinophils # (Manual) D-Dimer Sodium 135 L Potassium Chloride 95.9 L Carbon Dioxide BUN 72 H Creatinine 8.0 H Glucose 236 H POC Glucose 172 H 206 H Hemoglobin A1c Calcium 7.9 L Phosphorus Ferritin AST Lactate Dehydrogenase C-Reactive Protein Total Protein Albumin PTH Intact Ur Specific [place] Urine WBC (Auto) U Epithel Cells (Auto) Urine Creatinine Urine Total Protein Coronavirus (PCR) 08/29/20 08/30/20 08/30/20 16:23 00:02 07:36 WBC RBC Hgb Hct MCH RDW Plt Count Lymph % (Auto) Lymph # (Auto) [place] # (Auto) Seg Neutrophils % Seg Neuts % (Manual) Lymphocytes % (Manual) Seg Neutrophils # Seg Neutrophils # Man Lymphocytes # (Manual) Eosinophils # (Manual) D-Dimer Sodium Potassium Chloride Carbon Dioxide BUN Creatinine Glucose POC Glucose 242 H 220 H 149 H Hemoglobin A1c Calcium Phosphorus Ferritin AST Lactate Dehydrogenase C-Reactive Protein Total Protein Albumin PTH Intact Ur Specific [place] Urine WBC (Auto) U Epithel Cells (Auto) Urine Creatinine Urine Total Protein Coronavirus (PCR) 03/08/30/20 08/30/20 10:54 15:18 21:47 WBC RBC Hgb Hct MCH RDW Plt Count Lymph % (Auto) Lymph # (Auto) [place] # (Auto) Seg Neutrophils % Seg Neuts % (Manual) Lymphocytes % (Manual) Seg Neutrophils # Seg Neutrophils # Man Lymphocytes # (Manual) Eosinophils # (Manual) D-Dimer Sodium Potassium Chloride Carbon Dioxide BUN Creatinine Glucose POC Glucose 170 H 216 H 331 H Hemoglobin A1c Calcium Phosphorus Ferritin AST Lactate Dehydrogenase C-Reactive Protein Total Protein Albumin PTH Intact Ur Specific [place] Urine WBC (Auto) U Epithel Cells (Auto) Urine Creatinine Urine Total Protein Coronavirus (PCR) 08/31/20 08/31/20 08/31/20 07:09 07:09 11:45 WBC 14.7 H RBC 3.31 L Hgb 9.0 L Hct 28.2 L MCH 27 L RDW 15.9 H Plt Count Lymph % (Auto) 5.4 L Lymph # (Auto) 0.8 L Wink[place] # (Auto) 0.9 H Seg Neutrophils % 87.3 H Seg Neuts % (Manual) Lymphocytes % (Manual) Seg Neutrophils # 12.8 H Seg Neutrophils # Man Lymphocytes # (Manual) Eosinophils # (Manual) D-Dimer Sodium Potassium Chloride 95.3 L Carbon Dioxide BUN 71 H Creatinine 8.2 H Glucose 123 H POC Glucose 154 H Hemoglobin A1c Calcium 7.7 L Phosphorus Ferritin AST Lactate Dehydrogenase C-Reactive Protein Total Protein Albumin PTH Intact Ur Specific [place] Urine WBC (Auto) U Epithel Cells (Auto) Urine Creatinine Urine Total Protein Coronavirus (PCR) 08/31/20 08/31/20 09/01/20 16:58 21:41 07:57 WBC RBC Hgb Hct MCH RDW Plt Count Lymph % (Auto) Lymph # (Auto) [place] # (Auto) Seg Neutrophils % Seg Neuts % (Manual) Lymphocytes % (Manual) Seg Neutrophils # Seg Neutrophils # Man Lymphocytes # (Manual) Eosinophils # (Manual) D-Dimer Sodium Potassium Chloride Carbon Dioxide BUN Creatinine Glucose POC Glucose 279 H 237 H 127 H Hemoglobin A1c Calcium Phosphorus Ferritin AST Lactate Dehydrogenase C-Reactive Protein Total Protein Albumin PTH Intact Ur Specific [place] Urine WBC (Auto) U Epithel Cells (Auto) Urine Creatinine Urine Total Protein Coronavirus (PCR) 09/01/20 09/01/20 09/01/20 11:14 16:00 21:16 WBC RBC Hgb Hct MCH RDW Plt Count Lymph % (Auto) Lymph # (Auto) [place] # (Auto) Seg Neutrophils % Seg Neuts % (Manual) Lymphocytes % (Manual) Seg Neutrophils # Seg Neutrophils # Man Lymphocytes # (Manual) Eosinophils # (Manual) D-Dimer Sodium Potassium Chloride Carbon Dioxide BUN Creatinine Glucose POC Glucose 166 H 108 H 148 H Hemoglobin A1c Calcium Phosphorus Ferritin AST Lactate Dehydrogenase C-Reactive Protein Total Protein Albumin PTH Intact Ur Specific [place] Urine WBC (Auto) U Epithel Cells (Auto) Urine Creatinine Urine Total Protein Coronavirus (PCR) 09/02/20 09/02/20 09/02/20 07:29 11:15 15:50 WBC RBC Hgb Hct MCH RDW Plt Count Lymph % (Auto) Lymph # (Auto) [place] # (Auto) Seg Neutrophils % Seg Neuts % (Manual) Lymphocytes % (Manual) Seg Neutrophils # Seg Neutrophils # Man Lymphocytes # (Manual) Eosinophils # (Manual) D-Dimer Sodium Potassium Chloride Carbon Dioxide BUN Creatinine Glucose POC Glucose 52 L 152 H 168 H Hemoglobin A1c Calcium Phosphorus Ferritin AST Lactate Dehydrogenase C-Reactive Protein Total Protein Albumin PTH Intact Ur Specific [place] Urine WBC (Auto) U Epithel Cells (Auto) Urine Creatinine Urine Total Protein Coronavirus (PCR) 09/02/20 09/03/20 09/03/20 22:13 10:02 10:02 WBC 12.6 H RBC 3.19 L Hgb 8.6 L Hct 27.2 L MCH 27 L RDW 16.5 H Plt Count 106 L Lymph % (Auto) Lymph # (Auto) [place] # (Auto) Seg Neutrophils % Seg Neuts % (Manual) 87.0 H Lymphocytes % (Manual) 6.0 L Seg Neutrophils # Seg Neutrophils # Man 11.0 H Lymphocytes # (Manual) 0.8 L Eosinophils # (Manual) 0.5 H D-Dimer Sodium Potassium Chloride Carbon Dioxide BUN 39 H Creatinine 5.6 H Glucose 179 H POC Glucose 199 H Hemoglobin A1c Calcium 7.5 L Phosphorus Ferritin AST Lactate Dehydrogenase C-Reactive Protein Total Protein Albumin PTH Intact Ur Specific [place] Urine WBC (Auto) U Epithel Cells (Auto) Urine Creatinine Urine Total Protein Coronavirus (PCR) 09/03/20 09/03/20 09/03/20 12:07 16:14 21:33 WBC RBC Hgb Hct MCH RDW Plt Count Lymph % (Auto) Lymph # (Auto) [place] # (Auto) Seg Neutrophils % Seg Neuts % (Manual) Lymphocytes % (Manual) Seg Neutrophils # Seg Neutrophils # Man Lymphocytes # (Manual) Eosinophils # (Manual) D-Dimer Sodium Potassium Chloride Carbon Dioxide BUN Creatinine Glucose POC Glucose 130 H 125 H 146 H Hemoglobin A1c Calcium Phosphorus Ferritin AST Lactate Dehydrogenase C-Reactive Protein Total Protein Albumin PTH Intact Ur Specific [place] Urine WBC (Auto) U Epithel Cells (Auto) Urine Creatinine Urine Total Protein Coronavirus (PCR) 09/04/20 09/04/20 09/04/20 07:31 12:13 17:11 WBC RBC Hgb Hct MCH RDW Plt Count Lymph % (Auto) Lymph # (Auto) [place] # (Auto) Seg Neutrophils % Seg Neuts % (Manual) Lymphocytes % (Manual) Seg Neutrophils # Seg Neutrophils # Man Lymphocytes # (Manual) Eosinophils # (Manual) D-Dimer Sodium Potassium Chloride Carbon Dioxide BUN Creatinine Glucose POC Glucose 122 H 145 H 149 H Hemoglobin A1c Calcium Phosphorus Ferritin AST Lactate Dehydrogenase C-Reactive Protein Total Protein Albumin PTH Intact Ur Specific [place] Urine WBC (Auto) U Epithel Cells (Auto) Urine Creatinine Urine Total Protein Coronavirus (PCR) 09/04/20 22:00 WBC RBC Hgb Hct MCH RDW Plt Count Lymph % (Auto) Lymph # (Auto) [place] # (Auto) Seg Neutrophils % Seg Neuts % (Manual) Lymphocytes % (Manual) Seg Neutrophils # Seg Neutrophils # Man Lymphocytes # (Manual) Eosinophils # (Manual) D-Dimer Sodium Potassium Chloride Carbon Dioxide BUN Creatinine Glucose POC Glucose 140 H Hemoglobin A1c Calcium Phosphorus Ferritin AST Lactate Dehydrogenase C-Reactive Protein Total Protein Albumin PTH Intact Ur Specific [place] Urine WBC (Auto) U Epithel Cells (Auto) Urine Creatinine Urine Total Protein Coronavirus (PCR)
[2020-09-05 08:49] LABS: Basophils % (Auto) 0.4 % (0.0-1.8); Eosinophils # (Auto) 0.3 K/mm3 (0.0-0.4); Eosinophils % (Auto) 4.4 % (0.0-4.3); Hematocrit 25.9 % (30.3-42.9); Hemoglobin 8.2 gm/dl (10.1-14.3); Lymphocytes # (Auto) 0.5 K/mm3 (1.2-5.4); Lymphocytes % (Auto) 7.8 % (13.4-35.0); Mean Corpuscular HGB Conc 32 % (30-34); Mean Corpuscular Volume 86 fl (79-97); Monocytes # (Auto) 0.3 K/mm3 (0.0-0.8); Monocytes % (Auto) 4.3 % (0.0-7.3); Red Cell Distribution Width 17.3 % (13.2-15.2)
[2020-09-05] MEDS: TIOTROPIUM 18 MCG CAP INHALATION IH SCH ×2 (08:50→10:12)
[2020-09-05 08:55] LABS: Platelet Count 86 K/mm3 (140-440)
[2020-09-05 09:14] LABS: Calcium 7.9 mg/dL (8.4-10.2)
[2020-09-05] MEDS ORDERED: SPIRIVA 2.5 MCG INHALATION SCH (10:00)
--- NOTE | 2020-09-05 11:26 | Progress Note ---
Assessment and Plan Impression: #Acute kidney injury: She was initially on daily dialysis and was then transitioned to intermittent dialysis. #Has underlying chronic kidney disease her baseline creatinine is around 1.7-[address] Rivers's office #Respiratory failure resulting from Covid 19 pneumonia + fluid overload- being followed by pulmonary service. UF with HD as tolerated. Limit fluid intake to 1L/d #Covid 19 viral pneumonia with ARDS like picture, patient has multiorgan failure Plan: # HD MWF # she will need ongoing renal replacement therapy as tolerated for now. # Monitor labs and I/O daily. # Keep MAP> 65 # Renally dose medications # Avoid nephrotoxins # Renal diet # outpatient hd placement arranged, ok to dc from renal standpoint, Subjective Date of service: 09/05/20 Principal diagnosis: Acute respiratory failure with hypoxia, ANGELIQUE superimposed onCKD, Covid pneum Interval history: Seen during dialysis Tolerating without complications Notes improving urine output Objective - Exam Narrative Exam: General: No acute distress Neck: Supple, no JVD Extremity: No peripheral cyanosis, edema Neurological: Alert, awake, no asterixis Dermatology: No skin rash Psych: No agitation Musculoskeletal: No joint effusion - Vital Signs Vital signs: Vital Signs - 12hr 09/05/20 09/05/20 09/05/20 05:33 08:06 08:50 Temperature 98.6 F Pulse Rate 117 H Pulse Rate [ 108 H 111 H Anterior Bilateral Throughout] Respiratory 20 Rate Respiratory 20 20 Rate [Anterior Bilateral Throughout] Blood Pressure 108/72 O2 Sat by Pulse 97 97 Oximetry - Lab 09/05/20 08:11 09/05/20 08:11 Most recent lab results Calcium 7.9 mg/dL (8.4-10.2) L 09/05/20 08:11 Phosphorus 5.90 mg/dL (2.5-4.5) H 08/17/20 09:35 Urine Creatinine 248.0 mg/dL (0.1-20.0) H 08/17/20 17:45 Urine Total Protein 196 mg/dL (5-11.8) H 08/17/20 17:45 Medications & Allergies - Medications Allergies/Adverse Reactions: Allergies gabapentin [From Neurontin] Allergy (Verified 08/15/20 17:25) Unknown rosuvastatin calcium [From Crestor] Allergy (Verified 08/15/20 17:25) Rash fluticasone propionate [From Advair Diskus] Adverse Reaction (Verified 08/15/20 17:25) Headache salmeterol xinafoate [From Advair Diskus] Adverse Reaction (Verified 08/15/20 17:25) Headache IV DYE Allergy (Uncoded 08/24/20 10:28) Itching Home Medications: Home Medications Medication Instructions Recorded Confirmed Last Taken Type Cyanocobalamin (Vitamin B-12) 1,000 mcg IJ QMONTH 08/15/20 08/15/20 Unknown History [Physicians Ez Use B-12] Ergocalciferol [Vitamin D2] 1 cap PO QWEEK 08/15/20 08/15/20 Unknown History Ezetimibe/Simvastatin 1 each PO DAILY 08/15/20 08/15/20 Unknown History [Ezetimibe-Simvastatin 10-20 mg] Famotidine [Pepcid] 40 mg PO DAILY 08/15/20 08/15/20 Unknown History Linagliptin [Tradjenta] 5 mg PO QDAY 08/15/20 08/15/20 Unknown History Omeprazole 40 mg PO DAILY 08/15/20 08/15/20 Unknown History allopurinoL [Zyloprim] 200 mg PO DAILY 08/15/20 08/15/20 Unknown History Spiriva 2.5 mcg INHALATION DAILY 08/17/20 08/17/20 Unknown History Symbicort 160-4.5 Mcg Inhaler 160 mcg INHALATION BID 08/17/20 08/17/20 Unknown History ALBUTEROL NEB's [Proventil 0.083% 2.5 mg IH Q6HRT PRN nebu 08/31/20 Unknown Rx NEBS] Apixaban [Eliquis] 5 mg PO Q12HR 7 Days 08/31/20 Unknown Rx Ascorbic Acid [Vitamin C] 1,000 mg PO BID tablet 08/31/20 Unknown Rx Benzonatate [Tessalon Perles] 100 mg PO Q8HR capsule 08/31/20 Unknown Rx Lispro Insulin [HumaLOG] 0 unit SUB-Q ACHS units 08/31/20 Unknown Rx Nystatin [Nystatin SUSP] 400,000 unit PO TID 5 Days 08/31/20 Unknown Rx calcitrioL [Rocaltrol] 0.25 mcg PO QDAY capsule 08/31/20 Unknown Rx Acyclovir [Zovirax Cap] 200 mg PO Q12HR #12 capsule 09/05/20 Unknown Rx Arformoterol Nebu [Brovana Nebu] 15 mcg IH Q12HRT ml 09/05/20 Unknown Rx Carboxymethylcellulose Op [Refresh 1 drops OU PRN PRN droperette 09/05/20 Unknown Rx Celluvisc] Insulin Glargine [Lantus VIAL] 20 units SUB-Q QHS units 09/05/20 Unknown Rx Active Medications: Generic Name Dose Route Start Last Admin Trade Name Freq PRN Reason Stop Dose Admin Acetaminophen 650 mg 08/15/20 22:16 08/19/20 01:17 Acetaminophen 325 Mg Tab PO 650 mg Q4H PRN Administration Pain MILD(1-3)/Fever >100.5/TELLO Hydrocodone Bitart/Acetaminophen 1 each 08/15/20 22:06 09/02/20 22:43 Hydrocodone/Acetaminophen 5-325 Mg Tab PO 1 each Q6HR PRN Administration Pain, Moderate (4-6) Acyclovir 200 mg 09/04/20 22:00 09/04/20 21:54 Acyclovir 200 Mg Cap PO 09/10/20 23:59 200 mg Q12HR SYLVANI Administration Protocol Albuterol 2.5 mg 08/27/20 00:38 Albuterol 2.5 Mg/3 Ml Nebu IH 09/26/20 00:36 Q6HRT PRN Shortness Of Breath Apixaban 5 mg 08/24/20 11:00 09/04/20 21:52 Apixaban 5 Mg Tab PO 5 mg Q12HR SYLVAIN Administration Protocol Arformoterol Tartrate 15 mcg 09/04/20 10:30 09/05/20 08:06 Arformoterol 15 Mcg/2 Ml Nebu IH 15 mcg Q12HRT SYLVAIN Administration Artificial Tears 1 drops 09/03/20 09:57 09/04/20 10:11 Refresh (Carboxymethylcellulose) Drops 0.4 Ml OU 1 drops PRN PRN Administration Dry Eye(s) Ascorbic Acid 1,000 mg 08/15/20 23:00 09/04/20 21:53 Ascorbic Acid 500 Mg Tab PO 1,000 mg BID SYLVAIN Administration Benzonatate 100 mg 08/25/20 14:00 09/05/20 06:22 Benzonatate 100 Mg Cap PO 100 mg Q8HR SYLVAIN Administration Budesonide 1 mg 09/04/20 20:00 09/05/20 08:06 Budesonide 0.5 Mg/2 Ml Nebu IH 1 mg Q12HRT SYLVAIN Administration Calcitriol 0.25 mcg 08/18/20 10:00 09/04/20 09:37 Calcitriol 0.25 Mcg Cap PO 0.25 mcg QDAY SYLVAIN Administration Dextrose 25 ml 08/27/20 08:08 Dextrose 50% In Water (25gm) 50 Ml Syringe IV Q30MIN PRN HYPOGLYCEMIA Protocol Ezetimibe 10 mg 08/16/20 10:00 09/04/20 09:37 Ezetimibe 10 Mg Tab PO 10 mg DAILY SYLVAIN Administration Hydromorphone HCl 0.5 mg 08/15/20 22:16 09/04/20 15:35 Hydromorphone 1 Mg/1 Ml Inj IV 0.5 mg Q3H PRN Administration Pain , Severe (7-10) Sodium Chloride 100 mls @ 999 mls/hr 08/24/20 08:20 09/03/20 10:10 Nacl 0.9% IV 999 mls/hr SARAI PRN Administration Hypotension Insulin Glargine 20 units 09/02/20 22:00 09/04/20 22:10 Insulin Glargine 100 Units/Ml SUB-Q Not Given QHS SYLVAIN Insulin Human Lispro 0 unit 08/18/20 13:23 09/05/20 07:30 Insulin Lispro 100 Unit/Ml SUB-Q Not Given ACHS [facility] Protocol Linagliptin 5 mg 08/16/20 10:00 09/04/20 09:37 Linagliptin 5 Mg Tab PO 5 mg QDAY SYLVAIN Administration Metoclopramide HCl 5 mg 08/15/20 22:37 Metoclopramide 10 Mg/2 Ml Inj IV Q6H PRN Nausea And Vomiting Multivit/Ca Carb/B Cmplx/FA/Prenat 1 cap 08/18/20 10:00 09/04/20 09:38 Folic Acid/Vit B Comp W-C 1 Mg (Renal Caps) PO 1 cap DAILY SYLVAIN Administration Ondansetron HCl 4 mg 08/15/20 22:16 Ondansetron 4 Mg/2 Ml Inj IV Q8H PRN Nausea And Vomiting Oxycodone/Acetaminophen 1 tab 08/15/20 22:16 08/18/20 09:58 Oxycodone /Acetaminophen 5-325mg Tab PO 1 tab Q6H PRN Administration Pain, Moderate (4-6) Pantoprazole Sodium 40 mg 08/16/20 10:00 09/04/20 09:37 Pantoprazole 40 Mg Tab PO 40 mg DAILY SYLVAIN Administration Pravastatin Sodium 40 mg 08/16/20 10:00 09/04/20 09:38 Pravastatin 40 Mg Tab PO 40 mg DAILY SYLVAIN Administration Pseudoephedrine/Acetam/Chlorphenir 10 ml 08/18/20 10:30 08/23/20 17:21 Guaifenesin/Codeine 100-10mg Oral Liqd 5 Ml PO 10 ml Q4H PRN Administration Cough Sodium Chloride 10 ml 08/15/20 23:00 09/04/20 21:56 Sodium Chloride 0.9% 10 Ml Flush Syringe IV 10 ml BID SYLVAIN Administration Sodium Chloride 10 ml 08/15/20 22:16 Sodium Chloride 0.9% 10 Ml Flush Syringe IV PRN PRN LINE FLUSH Tiotropium [place] 1 puff 09/05/20 10:00 09/05/20 10:12 Tiotropium 18 Mcg Cap Inhalation IH Not Given Q24HR SYLVAIN Zinc Sulfate 220 mg 08/15/20 23:00 09/04/20 21:54 Zinc Sulfate 220 Mg Cap PO 220 mg BID SYLVAIN Administration
[2020-09-05] MEDS: LINAGLIPTIN 5 MG TAB PO SCH (14:48)
[2020-09-05] MEDS: EZETIMIBE 10 MG TAB PO SCH (14:48)
[2020-09-05] MEDS: ACYCLOVIR 200 MG CAP PO SCH (14:49)
[2020-09-05] MEDS: FOLIC ACID/VIT B COMP W-C 1 MG (RENAL CAPS) PO SCH (14:49)
[2020-09-05] MEDS: PRAVASTATIN 40 MG TAB PO SCH (14:49)
[2020-09-05] MEDS: CALCITRIOL 0.25 MCG CAP PO SCH (14:49)
[2020-09-05] MEDS: APIXABAN 5 MG TAB PO SCH (14:50)
[2020-09-05] MEDS: PANTOPRAZOLE 40 MG TAB PO SCH (14:50)
[2020-09-05] MEDS: ZINC SULFATE 220 MG CAP PO SCH (14:50)
[2020-09-05] MEDS: ASCORBIC ACID 500 MG TAB PO SCH (14:51)
[2020-09-05 18:36] VITALS: BP 122/94
== END 2020-09-05 19:15 | DRG 177 ==
LOC: ED 15:35 → 3A 18:00 → CC1 08-18 20:42 → 3A 08-25 01:11
PROVIDERS: ADMIT Internal Medicine; ATTEND Internal Medicine
PROC: B5181ZA Fluoroscopy of Superior Vena Cava using Low Osmolar Contrast, Guidance (ICD-10-PCS; principal; 2020-08-16)
PROC: 02H633Z Insertion of Infusion Device into Right Atrium, Percutaneous Approach (ICD-10-PCS; 2020-08-16)
PROC: B548ZZA Ultrasonography of Superior Vena Cava, Guidance (ICD-10-PCS; 2020-08-16)
PROC: 5A0955A Assistance with Respiratory Ventilation, Greater than 96 Consecutive Hours, High Flow/Velocity Cannula (ICD-10-PCS; 2020-08-16)
PROC: 5A1D70Z Performance of Urinary Filtration, Intermittent, Less than 6 Hours Per Day (ICD-10-PCS; 2020-08-17)
PROC: 5A1D70Z Performance of Urinary Filtration, Intermittent, Less than 6 Hours Per Day (ICD-10-PCS; 2020-08-18)
PROC: 5A1D70Z Performance of Urinary Filtration, Intermittent, Less than 6 Hours Per Day (ICD-10-PCS; 2020-08-20)
PROC: 5A1D70Z Performance of Urinary Filtration, Intermittent, Less than 6 Hours Per Day (ICD-10-PCS; 2020-08-22)
PROC: 5A1D70Z Performance of Urinary Filtration, Intermittent, Less than 6 Hours Per Day (ICD-10-PCS; 2020-08-23)
PROC: 5A1D70Z Performance of Urinary Filtration, Intermittent, Less than 6 Hours Per Day (ICD-10-PCS; 2020-08-24)
PROC: 5A1D70Z Performance of Urinary Filtration, Intermittent, Less than 6 Hours Per Day (ICD-10-PCS; 2020-08-26)
PROC: 5A1D70Z Performance of Urinary Filtration, Intermittent, Less than 6 Hours Per Day (ICD-10-PCS; 2020-08-27)
PROC: 5A1D70Z Performance of Urinary Filtration, Intermittent, Less than 6 Hours Per Day (ICD-10-PCS; 2020-08-29)
PROC: 5A1D70Z Performance of Urinary Filtration, Intermittent, Less than 6 Hours Per Day (ICD-10-PCS; 2020-08-31)
PROC: 5A09357 Assistance with Respiratory Ventilation, Less than 24 Consecutive Hours, Continuous Positive Airway Pressure (ICD-10-PCS; 2020-09-02)
PROC: 5A1D70Z Performance of Urinary Filtration, Intermittent, Less than 6 Hours Per Day (ICD-10-PCS; 2020-09-02)
PROC: 5A1D70Z Performance of Urinary Filtration, Intermittent, Less than 6 Hours Per Day (ICD-10-PCS; 2020-09-05)
DX: U07.1 COVID-19 (principal); J80 Acute respiratory distress syndrome; J12.82 Pneumonia due to coronavirus disease 2019; N17.0 Acute kidney failure with tubular necrosis; E87.1 Hypo-osmolality and hyponatremia; N18.5 Chronic kidney disease, stage 5; I12.0 Hypertensive chronic kidney disease with stage 5 chronic kidney disease or end stage renal disease; J44.0 Chronic obstructive pulmonary disease with (acute) lower respiratory infection; B37.0 Candidal stomatitis; D72.829 Elevated white blood cell count, unspecified; T38.0X5A Adverse effect of glucocorticoids and synthetic analogues, initial encounter; E87.70 Fluid overload, unspecified; E78.00 Pure hypercholesterolemia, unspecified; J44.9 Chronic obstructive pulmonary disease, unspecified; E11.22 Type 2 diabetes mellitus with diabetic chronic kidney disease; E87.5 Hyperkalemia; E66.01 Morbid (severe) obesity due to excess calories; E11.65 Type 2 diabetes mellitus with hyperglycemia; E78.5 Hyperlipidemia, unspecified; E87.8 Other disorders of electrolyte and fluid balance, not elsewhere classified; M10.9 Gout, unspecified; Z86.73 Personal history of transient ischemic attack (TIA), and cerebral infarction without residual deficits; Z90.710 Acquired absence of both cervix and uterus; Z79.899 Other long term (current) drug therapy; Z79.891 Long term (current) use of opiate analgesic; Z79.01 Long term (current) use of anticoagulants; Z82.49 Family history of ischemic heart disease and other diseases of the circulatory system; Z88.8 Allergy status to other drugs, medicaments and biological substances; Z88.5 Allergy status to narcotic agent; Z79.4 Long term (current) use of insulin; Y92.89 Other specified places as the place of occurrence of the external cause
CPT/HCPCS: 36415; 36556; 71045; 71046; 76770; 76942; 80048; 80053; 80074; 81001; 82140; 82570; 82728; 82805; 82947; 82962; 83036; 83520; 83615; 83970; 84100; 84145; 84156; 85007; 85025; 85027; 85379; 86140; 87040; 87086; 93005; 93970; 94640; 94644; 94660; 94760; 96374; 96375; 96376; G0378; A9270-GY; C1752; J0456; J0610; J0696; J0885; J1100; J1170; J1644; J1815; J2250; J2405; J3010; J7030; J7050; J8540; U0003

== ENCOUNTER 2020-09-05 20:43 | Observation (INO) | payer MEDICARE ==
[2020-09-05 21:37] LABS: Basophils % (Auto) 0.5 % (0.0-1.8); Eosinophils # (Auto) 0.3 K/mm3 (0.0-0.4); Eosinophils % (Auto) 4.4 % (0.0-4.3); Hematocrit 27.4 % (30.3-42.9); Hemoglobin 8.5 gm/dl (10.1-14.3); Lymphocytes # (Auto) 0.8 K/mm3 (1.2-5.4); Lymphocytes % (Auto) 13.1 % (13.4-35.0); Mean Corpuscular HGB Conc 31 % (30-34); Mean Corpuscular Volume 87 fl (79-97); Monocytes # (Auto) 0.4 K/mm3 (0.0-0.8); Monocytes % (Auto) 6.7 % (0.0-7.3); Platelet Count 86 K/mm3 (140-440); Red Blood Count 3.16 M/mm3 (3.65-5.03); Red Cell Distribution Width 17.9 % (13.2-15.2)
[2020-09-05 21:42] LABS: Calcium 7.7 mg/dL (8.4-10.2)
--- NOTE | 2020-09-05 21:59 | Emergency Department Report ---
HPI - General Time Seen by Provider: 09/05/20 21:00 - HPI HPI: This patient was just admitted to this hospital on 08/15 for COVID-19, hypoxia, and acute renal failure. The patient had had a positive Covid test prior to admission and then had a positive Covid test here on 08/16. The patient then had a negative Covid test on 08/31. Also during this last admission, the patient had a right IJ hemodialysis catheter placed and she was started on dialysis on Saturday/Saturday/Saturday for this acute renal failure. The patient was seen by case management and was discharged this evening to go to [facility]. When the patient arrived at [facility] she was told that the [facility] facility wants her to have a second negative Covid test, which would be done tomorrow, and in the meantime the patient would be placed in the Covid unit. When the patient heard about this she refused to stay and was brought back to the emergency department. At the time of my examination the patient denies any fever, chest pain, shortness of breath or any physical complaints at this time. Patient has a past medical history of COPD but is not oxygen dependent. She has a history of previous CVA, diabetes, hypertension, hyperlipidemia. ED Past Medical Hx - Past Medical History Previous Medical History?: Yes Hx Hypertension: Yes Hx CVA: Yes (CVA/TIA) Hx Diabetes: Yes Hx Deep Vein Thrombosis: No Hx COPD: Yes (No home O2) Additional medical history: OBESITY,ELEVATED CHOLESTEROL - Surgical History Past Surgical History?: Yes Hx Pacemaker: No Hx Internal Defibrillator: No Additional Surgical History: Hysterectomy - Social History Smoking Status: Never Smoker - Medications Home Medications: Home Medications Medication Instructions Recorded Confirmed Last Taken Type Cyanocobalamin (Vitamin B-12) 1,000 mcg IJ QMONTH 08/15/20 08/15/20 Unknown History [Physicians Ez Use B-12] Ergocalciferol [Vitamin D2] 1 cap PO QWEEK 08/15/20 08/15/20 Unknown History Ezetimibe/Simvastatin 1 each PO DAILY 08/15/20 08/15/20 Unknown History [Ezetimibe-Simvastatin 10-20 mg] Famotidine [Pepcid] 40 mg PO DAILY 08/15/20 08/15/20 Unknown History Linagliptin [Tradjenta] 5 mg PO QDAY 08/15/20 08/15/20 Unknown History Omeprazole 40 mg PO DAILY 08/15/20 08/15/20 Unknown History allopurinoL [Zyloprim] 200 mg PO DAILY 08/15/20 08/15/20 Unknown History Spiriva 2.5 mcg INHALATION DAILY 08/17/20 08/17/20 Unknown History Symbicort 160-4.5 Mcg Inhaler 160 mcg INHALATION BID 08/17/20 08/17/20 Unknown History ALBUTEROL NEB's [Proventil 0.083% 2.5 mg IH Q6HRT PRN nebu 08/31/20 Unknown Rx NEBS] Apixaban [Eliquis] 5 mg PO Q12HR 7 Days 08/31/20 Unknown Rx Ascorbic Acid [Vitamin C] 1,000 mg PO BID tablet 08/31/20 Unknown Rx Benzonatate [Tessalon Perles] 100 mg PO Q8HR capsule 08/31/20 Unknown Rx Lispro Insulin [HumaLOG] 0 unit SUB-Q ACHS units 08/31/20 Unknown Rx Nystatin [Nystatin SUSP] 400,000 unit PO TID 5 Days 08/31/20 Unknown Rx calcitrioL [Rocaltrol] 0.25 mcg PO QDAY capsule 08/31/20 Unknown Rx Acyclovir [Zovirax Cap] 200 mg PO Q12HR #12 capsule 09/05/20 Unknown Rx Arformoterol Nebu [Brovana Nebu] 15 mcg IH Q12HRT ml 09/05/20 Unknown Rx Carboxymethylcellulose Op [Refresh 1 drops OU PRN PRN droperette 09/05/20 Unknown Rx Celluvisc] Insulin Glargine [Lantus VIAL] 20 units SUB-Q QHS units 09/05/20 Unknown Rx ED Review of Systems ROS: Stated complaint: CASE MANAGEMENT Other details as noted in HPI Comment: All other systems reviewed and negative Constitutional: denies: chills, fever Eyes: denies: eye pain, vision change ENT: denies: ear pain, throat pain Respiratory: denies: cough, shortness of breath Cardiovascular: denies: chest pain, palpitations Gastrointestinal: denies: abdominal pain, vomiting Genitourinary: denies: dysuria, discharge Musculoskeletal: denies: back pain, arthralgia Skin: denies: rash, lesions Neurological: denies: headache, weakness Physical Exam - Physical Exam Vital Signs: Vital Signs 09/05/20 09/05/20 09/05/20 21:24 21:39 21:40 Temperature 98.9 F Pulse Rate 115 H 120 H Respiratory 20 19 19 Rate Blood Pressure 106/65 Blood Pressure 119/66 [Right] O2 Sat by Pulse 100 100 100 Oximetry Physical Exam: GENERAL: The patient is well-developed well-nourished. HENT: Normocephalic. Atraumatic. Patient has moist mucous membranes. EYES: Extraocular motions are intact. NECK: Supple. Trachea is midline. CHEST/LUNGS: Clear to auscultation. There is no respiratory distress noted. Right-sided chest dialysis catheter in place. HEART/CARDIOVASCULAR: Regular. There is mild to moderate tachycardia. There is no murmur. ABDOMEN: Abdomen is soft, nontender. Patient has normal bowel sounds. Morbidly obese habitus. SKIN: Skin is warm and dry. NEURO: The patient is awake, alert, and oriented. The patient is cooperative. The patient has no focal neurologic deficits. Normal speech. MUSCULOSKELETAL: There is no tenderness or deformity. There is no limitation range of motion. ED Course Vital Signs 09/05/20 09/05/20 09/05/20 21:24 21:39 21:40 Temperature 98.9 F Pulse Rate 115 H 120 H Respiratory 20 19 19 Rate Blood Pressure 106/65 Blood Pressure 119/66 [Right] O2 Sat by Pulse 100 100 100 Oximetry ED Medical Decision Making - Lab Data Result diagrams: 09/05/20 21:11 09/05/20 22:40 Lab Results 09/05/20 09/05/20 09/05/20 Range/Units 21:11 21:11 22:40 WBC 5.8 (4.5-11.0) K/mm3 RBC 3.16 L (3.65-5.03) M/mm3 Hgb 8.5 L (10.1-14.3) gm/dl Hct 27.4 L (30.3-42.9) % MCV 87 (79-97) fl MCH 27 L (28-32) pg MCHC 31 (30-34) % RDW 17.9 H (13.2-15.2) % Plt Count 86 L (140-440) K/mm3 Lymph % (Auto) 13.1 L (13.4-35.0) % Hall % (Auto) 6.7 (0.0-7.3) % Eos % (Auto) 4.4 H (0.0-4.3) % Baso % (Auto) 0.5 (0.0-1.8) % Lymph # (Auto) 0.8 L (1.2-5.4) K/mm3 [place] # (Auto) 0.4 (0.0-0.8) K/mm3 Eos # (Auto) 0.3 (0.0-0.4) K/mm3 Baso # (Auto) 0.0 (0.0-0.1) K/mm3 Seg Neutrophils % 75.3 H (40.0-70.0) % Seg Neutrophils # 4.4 (1.8-7.7) K/mm3 Sodium 116 L* D 117 L* (137-145) mmol/L Potassium 3.2 L 3.2 L (3.6-5.0) mmol/L Chloride 82.5 L 82.8 L (98-107) mmol/L Carbon Dioxide 25 26 (22-30) mmol/L Anion Gap 12 11 mmol/L BUN 27 H 28 H (7-17) mg/dL Creatinine 5.0 H 5.2 H (0.6-1.2) mg/dL Estimated GFR 10 10 ml/min BUN/Creatinine Ratio 5 5 % Glucose 124 H 110 H (65-100) mg/dL Calcium 7.7 L 7.3 L (8.4-10.2) mg/dL - Medical Decision Making This patient presented to the emergency department after there were some issues with her placement at [facility] and rehabilitation facility. The patient was just discharged earlier today after being in the hospital for 3 weeks for COVID-19 and acute renal failure. Initially I thought that this would be a case management issue for discharge placement. However, since the patient is dialysis dependent and there would be no guarantee that the patient would be placed in the morning, I did repeat a complete blood count and basic metabolic panel. The CBC was unremarkable. The BMP came back showing significant hyponatremia with a sodium level of 116. We repeated the BMP and it once again came back with hyponatremia with a sodium level of 117. Patient's vital signs were reassuring except for some mild to moderate tachycardia of about 115 bpm. Nephrology was contacted and consulted regarding the hyponatremia. Patient was accepted for admission by the hospitalist, Dr. Chiang. Critical Care Time: No Critical care attestation.: If time is entered above; I have spent that time in minutes in the direct care of this critically ill patient, excluding procedure time. ED Disposition Clinical Impression: Hyponatremia syndrome, ESRD on hemodialysis, Hypokalemia Disposition: 09 OP ADMIT IP TO THIS HOSP Is pt being admited?: Yes Condition: Serious Time of Disposition: 23:29
[2020-09-05 23:16] LABS: Calcium 7.3 mg/dL (8.4-10.2)
[2020-09-05] MEDS ORDERED: SODIUM CHLORIDE 0.9% 1000 ML 1,000 ML IV ONE (23:22)
[2020-09-06] MEDS ORDERED: DEXTROSE 50% IN WATER (25GM) 50 ML SYRINGE IV PRN (00:29)
[2020-09-06] MEDS ORDERED: ACETAMINOPHEN 325 MG TAB PO PRN (00:33)
[2020-09-06] MEDS ORDERED: ONDANSETRON 4 MG/2 ML INJ IV PRN (00:34)
[2020-09-06 02:11] LABS: Calcium 7.3 mg/dL (8.4-10.2)
--- NOTE | 2020-09-06 05:08 | History and Physical Report ---
History of Present Illness Date of examination: 09/05/20 Date of admission: 09/05/20 23:29 Chief complaint: 1. Chief complaint is need for another negative COVID-19 test, 2. finding of low sodium level in the lab test History of present illness: History of presenting illness, patient is a 64-year-old female who was admitted to this hospital earlier this month and treated for COVID-19 infection and respiratory distress, patient was discharged back to [facility] and was told that she will need another negative Covid -19 test despite having a negativ e test prior to discharge. Patient refused to take another test having been declared Covid negative prior to discharge and as such was brought back to the emergency room. She was evaluated in the emergency room and found to have low sodium level. Past History Past Medical History: COPD, diabetes, hypertension, hyperlipidemia, stroke Past Surgical History: hysterectomy Social history: no significant social history Family history: no significant family history Medications and Allergies Allergies Allergy/AdvReac Type Severity Reaction Status Date / Time gabapentin [From Neurontin] Allergy Unknown Verified 08/15/20 17:25 rosuvastatin calcium Allergy Rash Verified 08/15/20 17:25 [From Crestor] fluticasone propionate AdvReac Headache Verified 08/15/20 17:25 [From Advair Diskus] salmeterol xinafoate AdvReac Headache Verified 08/15/20 17:25 [From Advair Diskus] IV DYE Allergy Itching Uncoded 08/24/20 10:28 Home Medications Medication Instructions Recorded Confirmed Last Taken Type Cyanocobalamin (Vitamin B-12) 1,000 mcg IJ QMONTH 08/15/20 08/15/20 Unknown Hi story [Physicians Ez Use B-12] Ergocalciferol [Vitamin D2] 1 cap PO QWEEK 08/15/20 08/15/20 Unknown History Ezetimibe/Simvastatin 1 each PO DAILY 08/15/20 08/15/20 Unknown History [Ezetimibe-Simvastatin 10-20 mg] Famotidine [Pepcid] 40 mg PO DAILY 08/15/20 08/15/20 Unknown History Linagliptin [Tradjenta] 5 mg PO QDAY 08/15/20 08/15/20 Unknown History Omeprazole 40 mg PO DAILY 08/15/20 08/15/20 Unknown History allopurinoL [Zyloprim] 200 mg PO DAILY 08/15/20 08/15/20 Unknown History Spiriva 2.5 mcg INHALATION DAILY 08/17/20 08/17/20 Unknown History Symbicort 160-4.5 Mcg Inhaler 160 mcg INHALATION BID 08/17/20 08/17/20 Unknown History ALBUTEROL NEB's [Proventil 0.083% 2.5 mg IH Q6HRT PRN nebu 08/31/20 Unknown Rx NEBS] Apixaban [Eliquis] 5 mg PO Q12HR 7 Days 08/31/20 Unknown Rx Ascorbic Acid [Vitamin C] 1,000 mg PO BID tablet 08/31/20 Unknown Rx Benzonatate [Tessalon Perles] 100 mg PO Q8HR capsule 08/31/20 Unknown Rx Lispro Insulin [HumaLOG] 0 unit SUB-Q ACHS units 08/31/20 Unknown Rx Nystatin [Nystatin SUSP] 400,000 unit PO TID 5 Days 08/31/20 Unknown Rx calcitrioL [Rocaltrol] 0.25 mcg PO QDAY capsule 08/31/20 Unknown Rx Acyclovir [Zovirax Cap] 200 mg PO Q12HR #12 capsule 09/05/20 Unknown Rx Arformoterol Nebu [Brovana Nebu] 15 mcg IH Q12HRT ml 09/05/20 Unknown Rx Carboxymethylcellulose Op [Refresh 1 drops OU PRN PRN droperette 09/05/20 Unknown Rx Celluvisc] Insulin Glargine [Lantus VIAL] 20 units SUB-Q QHS units 09/05/20 Unknown Rx Active Meds: Active Medications Acetaminophen (Acetaminophen 325 Mg Tab) 650 mg PO Q4H PRN PRN Reason: Fever >101 Dextrose (Dextrose 50% In Water (25gm) 50 Ml Syringe) 0 ml IV Q30MIN PRN; Protocol PRN Reason: Hypoglycemia Sodium Chloride (Nacl 0.9% 1000 Ml) 1,000 mls @ 125 mls/hr IV ONCE ONE Stop: 09/06/20 07:21 Last Admin: 09/05/20 23:58 Dose: 125 mls/hr Documented by: Insulin Human Regular (Insulin Regular, Human 100 Units/1 Ml) 0 units SUB-Q AC SYLVAIN; Protocol Insulin Human Regular (Insulin Regular, Human 100 Units/1 Ml) 0 units SUB-Q QHS SYLVAIN; Protocol Ondansetron HCl (Ondansetron 4 Mg/2 Ml Inj) 4 mg IV Q8H PRN PRN Reason: Nausea And Vomiting Review of Systems Constitutional: no fever, no chills, no sweats, no weakness, no malaise Eyes: bilateral: other (NO BILATERAL EYE SYMPTOMS) Ears, nose, mouth and throat: no ear pain Cardiovascular: no chest pain, no orthopnea, no palpitations, no light headedness, no shortness of breath Respiratory: no cough, no hemoptysis, no shortness of breath, no dyspnea on exertion Gastrointestinal: no nausea, no vomiting, no constipation Genitourinary Female: no Menstruation: postmenopausal Rectal: no pain Musculoskeletal: no neck stiffness, no neck pain, no low back pain, no myalgias Integumentary: no rash, no pruritis, no redness, no sores, no wounds Neurological: no weakness, no numbness, no seizures, no syncope, no tremors, no vertigo, no headaches, no migraines Psychiatric: no anxiety, no depression Endocrine: no polydipsia, no polyuria, no nocturia, no palpatations Hematologic/Lymphatic: no easy bruising, no easy bleeding Exam - Constitutional Vitals: Temp Pulse Resp BP Pulse Ox 98.9 F 109 H 24 92/42 100 09/05/20 21:24 09/05/20 23:20 09/05/20 23:20 09/05/20 23:20 09/05/20 23:20 General appearance: Present: no acute distress - EENT Eyes: Present: PERRL, EOM intact ENT: hearing intact, clear oral mucosa, dentition normal - Neck Neck: Present: supple, normal ROM - Respiratory Respiratory effort: normal - Cardiovascular Rhythm: regular Heart Sounds: Present: S1 & S2. Absent: gallop, systolic murmur, diastolic murmur - Extremities Extremities: no ischemia, No edema Peripheral Pulses: within normal limits - Abdominal General gastrointestinal: Present: soft, non-tender, non-distended. Absent: tender, distended, rigid Female genitourinary: Present: deferred - Rectal Rectal Exam: deferred - Integumentary Integumentary: Present: clear, warm, dry - Musculoskeletal Musculoskeletal: strength equal bilaterally - Psychiatric Psychiatric: appropriate mood/affect HEART Score - HEART Score Risk factors: 1-2 risk factors Troponin: < normal limit - Critical Actions Critical Actions: 0-3 pts:0.9-1.7%risk of adverse cardiac event.Candidate for discharge Results - Labs CBC & Chem 7: 09/05/20 21:11 09/06/20 01:21 Labs: Laboratory Last Values WBC 5.8 K/mm3 (4.5-11.0) 09/05/20 21:11 RBC 3.16 M/mm3 (3.65-5.03) L 09/05/20 21:11 Hgb 8.5 gm/dl (10.1-14.3) L 09/05/20 21:11 Hct 27.4 % (30.3-42.9) L 09/05/20 21:11 MCV 87 fl (79-97) 09/05/20 21:11 MCH 27 pg (28-32) L 09/05/20 21:11 MCHC 31 % (30-34) 09/05/20 21:11 RDW 17.9 % (13.2-15.2) H 09/05/20 21:11 Plt Count 86 K/mm3 (140-440) L 09/05/20 21:11 Lymph % (Auto) 13.1 % (13.4-35.0) L 09/05/20 21:11 [place] % (Auto) 6.7 % (0.0-7.3) 09/05/20 21:11 Eos % (Auto) 4.4 % (0.0-4.3) H 09/05/20 21:11 Baso % (Auto) 0.5 % (0.0-1.8) 09/05/20 21:11 Lymph # (Auto) 0.8 K/mm3 (1.2-5.4) L 09/05/20 21:11 [place] # (Auto) 0.4 K/mm3 (0.0-0.8) 09/05/20 21:11 Eos # (Auto) 0.3 K/mm3 (0.0-0.4) 09/05/20 21:11 Baso # (Auto) 0.0 K/mm3 (0.0-0.1) 09/05/20 21:11 Seg Neutrophils % 75.3 % (40.0-70.0) H 09/05/20 21:11 Seg Neutrophils # 4.4 K/mm3 (1.8-7.7) 09/05/20 21:11 Sodium 131 mmol/L (137-145) L D 09/06/20 01:21 Potassium 3.3 mmol/L (3.6-5.0) L 09/06/20 01:21 Chloride 83.1 mmol/L (98-107) L 09/06/20 01:21 Carbon Dioxide 28 mmol/L (22-30) 09/06/20 01:21 Anion Gap 23 mmol/L 09/06/20 01:21 BUN 28 mg/dL (7-17) H 09/06/20 01:21 Creatinine 5.5 mg/dL (0.6-1.2) H 09/06/20 01:21 Estimated GFR 9 ml/min 09/06/20 01:21 BUN/Creatinine Ratio 5 % 09/06/20 01:21 Glucose 106 mg/dL (65-100) H 09/06/20 01:21 POC Glucose 103 mg/dL (70-105) 09/06/20 01:26 Calcium 7.3 mg/dL (8.4-10.2) L 09/06/20 01:21 Assessment and Plan - Patient Problems (1) Hyponatremia Current Visit: Yes Status: Acute Plan to address problem: 1. I.V NORMAL SALINE 2. SERIAL BMP LEVEL (2) ESRD on hemodialysis Current Visit: Yes Status: Acute Plan to address problem: NEPHROLOGY CONSULT
[2020-09-06] MEDS: INSULIN REGULAR, HUMAN 100 UNITS/1 ML SUB-Q SCH ×2 (08:55→12:33)
--- NOTE | 2020-09-06 09:26 | Progress Note ---
Assessment and Plan Assessement * Acute kidney injury on stage III chronic kidney disease * Acute hypoxic respiratory failure secondary COVID 19 * COVID 19 viral PNA * Hypokalemia Plan: * Patient is s/p HD yesterday - however, patient was to resume TTS schedule t [place] at [facility] * Will order HD today * UF as tolerated * COVID testing per primary team * Dose medications for renal function Subjective Date of service: 09/06/20 Interval history: Patient discharged yesterday but readmitted yesterday evening. [facility] facility requesting 2nd COVID test. Patient has no complaints today. Objective - Vital Signs Vital signs: Vital Signs - 12hr 09/05/20 09/05/20 09/05/20 21:34 21:39 21:40 Pulse Rate 120 H Respiratory 19 19 Rate Blood Pressure Blood Pressure 119/66 [Right] O2 Sat by Pulse 100 100 100 Oximetry 09/05/20 09/05/20 09/05/20 21:45 22:01 22:15 Pulse Rate 121 H 114 H 113 H Respiratory 28 H 30 H 24 Rate Blood Pressure 119/66 119/66 102/63 Blood Pressure [Right] O2 Sat by Pulse 99 100 100 Oximetry 09/05/20 09/05/20 09/05/20 22:31 22:45 23:01 Pulse Rate 110 H 117 H 113 H Respiratory 27 H 29 H 13 Rate Blood Pressure 102/63 102/63 102/63 Blood Pressure [Right] O2 Sat by Pulse 100 100 100 Oximetry 09/05/20 09/05/20 23:15 23:20 Pulse Rate 111 H 109 H Respiratory 19 24 Rate Blood Pressure 97/61 Blood Pressure 92/42 [Right] O2 Sat by Pulse 100 100 Oximetry - General Appearance General appearance: well-developed, well-nourished EENT: ATNC Gastrointestinal: obese Integumentary: no rash Neurologic: alert and oriented x3 Psychiatric: cooperative - Lab 09/05/20 21:11 09/06/20 01:21 Most recent lab results Calcium 7.3 mg/dL (8.4-10.2) L 09/06/20 01:21 Medications & Allergies - Medications Allergies/Adverse Reactions: Allergies gabapentin [From Neurontin] Allergy (Verified 08/15/20 17:25) Unknown rosuvastatin calcium [From Crestor] Allergy (Verified 08/15/20 17:25) Rash fluticasone propionate [From Advair Diskus] Adverse Reaction (Verified 08/15/20 17:25) Headache salmeterol xinafoate [From Advair Diskus] Adverse Reaction (Verified 08/15/20 17:25) Headache IV DYE Allergy (Uncoded 08/24/20 10:28) Itching Home Medications: Home Medications Medication Instructions Recorded Confirmed Last Taken Type Cyanocobalamin (Vitamin B-12) 1,000 mcg IJ QMONTH 08/15/20 08/15/20 Unknown History [Physicians Ez Use B-12] Ergocalciferol [Vitamin D2] 1 cap PO QWEEK 08/15/20 08/15/20 Unknown History Ezetimibe/Simvastatin 1 each PO DAILY 08/15/20 08/15/20 Unknown History [Ezetimibe-Simvastatin 10-20 mg] Famotidine [Pepcid] 40 mg PO DAILY 08/15/20 08/15/20 Unknown History Linagliptin [Tradjenta] 5 mg PO QDAY 08/15/20 08/15/20 Unknown History Omeprazole 40 mg PO DAILY 08/15/20 08/15/20 Unknown History allopurinoL [Zyloprim] 200 mg PO DAILY 08/15/20 08/15/20 Unknown History Spiriva 2.5 mcg INHALATION DAILY 08/17/20 08/17/20 Unknown History Symbicort 160-4.5 Mcg Inhaler 160 mcg INHALATION BID 08/17/20 08/17/20 Unknown History ALBUTEROL NEB's [Proventil 0.083% 2.5 mg IH Q6HRT PRN nebu 08/31/20 Unknown Rx NEBS] Apixaban [Eliquis] 5 mg PO Q12HR 7 Days 08/31/20 Unknown Rx Ascorbic Acid [Vitamin C] 1,000 mg PO BID tablet 08/31/20 Unknown Rx Benzonatate [Tessalon Perles] 100 mg PO Q8HR capsule 08/31/20 Unknown Rx Lispro Insulin [HumaLOG] 0 unit SUB-Q ACHS units 08/31/20 Unknown Rx Nystatin [Nystatin SUSP] 400,000 unit PO TID 5 Days 08/31/20 Unknown Rx calcitrioL [Rocaltrol] 0.25 mcg PO QDAY capsule 08/31/20 Unknown Rx Acyclovir [Zovirax Cap] 200 mg PO Q12HR #12 capsule 09/05/20 Unknown Rx Arformoterol Nebu [Brovana Nebu] 15 mcg IH Q12HRT ml 09/05/20 Unknown Rx Carboxymethylcellulose Op [Refresh 1 drops OU PRN PRN droperette 09/05/20 Unknown Rx Celluvisc] Insulin Glargine [Lantus VIAL] 20 units SUB-Q QHS units 09/05/20 Unknown Rx Active Medications: Generic Name Dose Route Start Last Admin Trade Name Freq PRN Reason Stop Dose Admin Acetaminophen 650 mg 09/06/20 00:33 Acetaminophen 325 Mg Tab PO Q4H PRN Fever >101 Dextrose 0 ml 09/06/20 00:29 Dextrose 50% In Water (25gm) 50 Ml Syringe IV Q30MIN PRN Hypoglycemia Protocol Insulin Human Regular 0 units 09/06/20 07:30 09/06/20 08:55 Insulin Regular, Human 100 Units/1 Ml SUB-Q Not Given AC SYLVAIN Protocol Insulin Human Regular 0 units 09/06/20 22:00 Insulin Regular, Human 100 Units/1 Ml SUB-Q QHS SYLVAIN Protocol Ondansetron HCl 4 mg 09/06/20 00:34 Ondansetron 4 Mg/2 Ml Inj IV Q8H PRN Nausea And Vomiting
[2020-09-06] MEDS ORDERED: SODIUM CHLORIDE 0.9% 100 ML IV PRN (09:29)
[2020-09-06] MEDS ORDERED: ALBUTEROL 2.5 MG/3 ML NEBU IH PRN (11:02)
[2020-09-06] MEDS ORDERED: ACYCLOVIR 200 MG CAP PO SCH (12:00)
[2020-09-06] MEDS ORDERED: APIXABAN 5 MG TAB PO SCH (12:00)
--- NOTE | 2020-09-06 12:10 | Discharge Summary ---
Providers - Providers Date of Admission: 09/05/20 23:29 Date of discharge: 09/06/20 Attending physician: NICOLE ARNOLD 09/05/20 23:22 Consult to Physician [CONS] Routine Comment: Dr. Stock spoke with Dr. 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 Notified:: CM Comment:: NEED FOR CONSULT Primary care physician: [employer] Hospitalization Condition: Serious Hospital course: Patient is a 64-year-old female who was admitted to this hospital earlier this month and treated for COVID-19 infection and acute hypoxic respiratory failure due to COVID-19 pneumonia, patient was discharged to [facility] for subacute rehab.following discharge when patient reached at [facility] she was told that she will need another negative Covid -19 test despite having a negative test prior to discharge. Patient refused to take another test having been declared Covid negative prior to discharge and as such was brought back to the emergency room. She was evaluated in the emergency room and found to have low sodium and low potassium level. Patient was readmitted for observation status repeat Covid test was ordered patient received gentle IV fluid hydration and sodium level improved. Potassium level remained stable. patient was clinically stable, vitals reviewed. Patient will be discharged back to subacute rehab today after a repeat negative Covid test. Patient verbalized understanding and discharged in stable condition. Disposition: [id number] [facility] Final Discharge Diagnosis (Prints w/discharge instructions): Hyponatremia. Hypokalemia. End-stage renal disease. History of COVID-19 pneumonia. Acute hypoxic respiratory failure Time spent for discharge: 34 minutes Core Measure Documentation - Palliative Care Palliative Care/ Comfort Measures: Not Applicable - Core Measures Any of the following diagnoses?: none Exam - Physical Exam Narrative exam: General appearance: Present: no acute distress - EENT Eyes: Present: PERRL, EOM intact ENT: hearing intact, clear oral mucosa, dentition normal - Neck Neck: Present: supple, normal ROM - Respiratory Respiratory effort: normal - Cardiovascular Rhythm: regular Heart Sounds: Present: S1 & S2. Absent: gallop, systolic murmur, diastolic murmur - Extremities Extremities: no ischemia, No edema Peripheral Pulses: within normal limits - Abdominal General gastrointestinal: Present: soft, non-tender, non-distended. Absent: tender, distended, rigid Female genitourinary: Present: deferred - Rectal Rectal Exam: deferred - Integumentary Integumentary: Present: clear, warm, dry - Musculoskeletal Musculoskeletal: strength equal bilaterally - Psychiatric Psychiatric: appropriate mood/affect - Constitutional Vitals: Temp Pulse Resp BP Pulse Ox 98.9 F 109 H 24 112/62 100 09/05/20 21:24 09/05/20 23:20 09/05/20 23:20 09/05/20 23:20 09/05/20 23:20 Plan Activity: advance as tolerated Weight Bearing Status: Non-Weight Bearing Diet: renal Special Instructions: restrict fluid intake to (1.5 L per day ) Follow up with: PRIMARY CAREMD [Primary Care Provider] - 7 Days
[2020-09-06] MEDS ORDERED: POTASSIUM CHLORIDE ER 20 MEQ TAB PO SCH (13:00)
[2020-09-06 16:47] VITALS: BP 127/69
[2020-09-06] MEDS ORDERED: INSULIN GLARGINE 100 UNITS/ML SUB-Q SCH (22:00)
[2020-09-06] MEDS ORDERED: INSULIN REGULAR, HUMAN 100 UNITS/1 ML SUB-Q SCH (22:00)
== END 2020-09-06 18:00 | disposition other institution (70) ==
LOC: ED 20:43 → 3A 23:29
PROVIDERS: ADMIT Internal Medicine; ATTEND Internal Medicine
DX: J96.00 Acute respiratory failure, unspecified whether with hypoxia or hypercapnia (principal); Z20.822 Contact with and (suspected) exposure to COVID-19; E87.1 Hypo-osmolality and hyponatremia; I12.0 Hypertensive chronic kidney disease with stage 5 chronic kidney disease or end stage renal disease; N18.6 End stage renal disease; E87.6 Hypokalemia; E11.9 Type 2 diabetes mellitus without complications; J44.9 Chronic obstructive pulmonary disease, unspecified; E78.5 Hyperlipidemia, unspecified; E66.9 Obesity, unspecified; Z86.73 Personal history of transient ischemic attack (TIA), and cerebral infarction without residual deficits; Z99.2 Dependence on renal dialysis; Z90.710 Acquired absence of both cervix and uterus; Z79.4 Long term (current) use of insulin; Z68.43 Body mass index [BMI] 50.0-59.9, adult; Z86.16 Personal history of COVID-19
CPT/HCPCS: 36415; 80048; 82962; 85025; 96360; 99284; G0257; G0378; J7030; U0003